=== PATIENT | male | born 1945 | race Caucasian/White ===

== ENCOUNTER 2019-07-30 12:08 | Inpatient (IN) | payer OTHER, MEDICARE, SELFPAY ==
[2019-07-30] VITALS (30 sets, daily range): BP systolic 90–136; BP diastolic 48–91; PULSE 65–84; RESP 16–29; TEMP 36.6–36.7; O2SAT 95–100; BMI 29.9
--- NOTE | 2019-07-30 | SCC_ITS ---
Procedure Done: Hemodialysis catheter placement right internal jugular vein under ultrasound guidance and fluoroscopy All interpretation intraoperatively was done by me for the whole entire procedure 9.1 seconds of fluoroscopic guidance, for a cumulative dose of 1.74 mGy, was provided to Dr. Byrne by the radiology department. C-arm images of the chest were saved for the patient's permanent record. YULI
--- NOTE | 2019-07-30 12:14 | XR_ITS ---
WS: [id number] Right femur and thigh, AP and lateral views, 07/30/2019 Clinical Data: pain Comparison: None. Findings: No fractures or dislocations are seen. The soft tissues are normal. The visualized knee shows no abno rmalities. XR/XR femur RT min 2V* [id number] Impression: Negative right femur and thigh.
--- NOTE | 2019-07-30 12:14 | CT_ITS ---
WS: [id number] CT HEAD TECHNIQUE: Noncontrast CT of the head obtained from the skullbase to the vertex. CLINICAL INFORMATION: fall- abrasion on forehead COMPARISON: CT 1 ,019 and MRI 1 16,019 DLP: 872.[address] scans at [facility] use at least one of these dose optimization techniques: automat ed exposure control; mA and/or kV adjustment per patient size (includes targeted exams where dose is matched to clinical indication); or iterative reconstruction. FINDINGS: No evidence of intracranial hemorrhage or mass effect. Ventricular system and basal cisterns are garcia nt. Mild small vessel changes with moderate parenchymal volume loss. No extra-axial fluid collections . No evidence of mass or mass effect. Normal kwon-white differentiation. Mucosal thickening mastoid tips. Notified Dara Grijalva DO at 07/30/2019 12:[address]/CT head wo con* [id number] IMPRESSION: 1. No evidence of intracranial hemorrhage or mass effect. 2. Mild small vessel changes. Moderate parenchymal volume loss. 3. No acute intracranial findings.
--- NOTE | 2019-07-30 12:14 | XR_ITS ---
WS: [id number] Left knee, 2 views, 07/30/2019 Clinical Data: pain Comparison: None. Findings: No fractures or dislocations are seen. The joint spaces are normal. The patella is intact. The soft t issues are unremarkable. Calcification in the [place] of the superficial femoral artery, popliteal artery and arteries and trifu rcation is seen. XR/XR knee LT 1-2V [id number] Impression: Negative left knee.
--- NOTE | 2019-07-30 12:14 | ECG_ITS ---
Measurements Intervals [place] Rate: 65 P: -3 OK: 277 QRS: -25 QRSD: 127 T: 139 QT: 426 QTc: 444 SINUS RHYTHM WITH FIRST DEGREE AV BLOCK BORDERLINE LEFT AXIS DEVIATION [QRS AXIS < -20] POSSIBLE RIGHT VENTRICULAR CONDUCTION DELAY [RSR (QR) IN V1/V2] ST DEVIATION AND MARKED T-WAVE ABNORMALITY, CONSIDER ANTEROLATERAL ISCHEMIA [-0.5+ mV T WAVE IN I/aVL/V3-V6] Compared to ECG 11/30/2018 10:36:46 First degree AV block now present T-wave abnormality still present Possible ischemia still present Electronically Signed On 07-31-2019 11:25:44 ENDLESS BELT FINISHER by Gibran Garzon M.D. [email or web address]
--- NOTE | 2019-07-30 12:14 | XR_ITS ---
WS: [id number] Right knee, 2 views, 07/30/2019 Clinical Data: pain Comparison: None. Findings: No fractures or dislocations are seen. The joint spaces are normal. The patella is intact. The soft t issues are unremarkable. There is minimal calcification in the [place] of the superficial femoral artery, popliteal artery and a rteries of the trifurcation. XR/XR knee RT 1-2V [id number] Impression: Negative right knee.
--- NOTE | 2019-07-30 12:14 | XR_ITS ---
WS: [id number] Left femur and thigh, AP and lateral, 07/30/2019 Clinical Data: pain Comparison: None. Findings: No fractures or dislocations are seen. The soft tissues are normal. The visualized knee shows no abno rmalities. Calcification in the [place] of the superficial femoral artery, popliteal artery and arteries of the tr ifurcation is seen. XR/XR femur LT min 2V* [id number] Impression: Negative left femur and thigh.
--- NOTE | 2019-07-30 12:14 | XR_ITS ---
WS: [id number] Pelvis, AP view, 07/30/2019 Clinical Data: pain Comparison: None. Findings: No fractures or dislocations are seen. The SI joints and pubic symphysis are intact. The soft tissues are not remarkable. The bladder is partly full. Moderate osteoarthritis of the L4 and L5 vertebral bodies is seen. XR/XR pelvis 1-2V* [id number] Impression: Negative for fracture.
--- NOTE | 2019-07-30 12:16 | ED_ITS ---
HPI - Fall General: Chief Complaint: Fall Stated Complaint: FALL Time Seen by Provider: 07/30/19 12:11 History of Present Illness: HPI Narrative: very pleasant patient recently x 1 year, history of Parkinson's disease, presents to [facility] ER for increasing frequency of falls. reportedle fell twice yesterday and again today.Initially called 911 for lift assist but could not stand or ambulate due to pain in bilateral legs. He does have an abrasion to his forehead, is alert and oriented. Reports he has home health but understands that he cannot go home if he cannot walk. EMS states house essentially clean aside from cat urine odor. No pain with direct palaption of BLE or pelvis. MD complaint: fall Onset (ago): day(s) Fall from: standing Fall witnessed: no Place fall occurred: home Loss of consciousness: None Prolonged down time: unclear Context: tripped/slipped and history of frequent falls Location of injury: head Location of injury - extremities: Bilateral: thigh Severity: moderate Severity scale (1-10): 5 Quality: aching Associated symptoms-after fall: Reports no associated symptoms; Denies abdominal pain, chest pain, difficulty walking, headache(s) or neck pain Review of Systems Const: Denies: fever, chills, change in appetite or malaise Eyes: Denies: change in vision, blurry vision, eye discharge or eye redness ENMT: Denies: throat pain, uvular edema, painful swallowing, mouth pain, dental pain, nasal congestion or facial/sinus pain Card: Denies: chest pain, irregular heart rhythm, swelling of feet/ankles, shortness of breath on exertion, shortness of breath when lying down or leg pain with exertion Resp: Denies: shortness of breath, productive cough, wheezing or coughing up blood GI: Denies: abdominal pain, nausea, vomiting, diarrhea, constipation or fecal incontinence : Denies: flank pain, painful urination, urinary frequency, urinary urgency or urinary hesitancy Musc: Reports: extremity pain; Denies: neck pain, back pain, extremity swelling, joint warmth, muscle cramps or loss of height Skin/Breast: Denies: rash, itching, redness, yellow skin or dry skin Neuro: Denies: headache, numbness in extremities, weakness in extremities, changes in sensation, lack of coordination or difficulty walking Psych: Denies: anxiety, depression, mood swings, panic attacks, sleeping less, suicidal ideation or homicidal ideation Endo: Denies: excessive urination, excessive thirst or tired all the time Raz/Lymph: Denies: easy bruising, petechiae or enlarged lymph nodes All/Imm: Denies: hives, throat swelling, facial swelling, acute wheezing or seasonal allergies PFSH ED PFSH: Statuses (acute, chronic, etc) shown below reflect problem list status as previously entered and may not be historically accurate Family History Other Cancer Diabetes Social History Smoking and tobacco status: former smoker Alcohol intake: never Marital status: / History of recent travel: No Physical Exam Const: COMMON NORMALS: no apparent distress, oriented x3, no limitations, healthy appearing, alert and well nourished GENERAL APPEARANCE: cooperative, comfortable, well kempt and well developed ORIENTATION/CONSCIOUSNESS: Yes awake, Yes oriented to person, Yes oriented to place and Yes oriented to time HENMT: COMMON NORMALS: normocephalic, hearing grossly normal bilaterally, external ears normal, EAC's normal, TM's normal bilaterally, external nose normal, nasal mucous membranes and turbinates normal, moist oral mucous membranes, oropharynx normal, dentition normal and gingiva normal HEAD & SCALP: normal to inspection, normocephalic and abrasion (forehead) FACE & SINUS: normal facial exam NOSE: external nose normal and nasal mucous membranes and turbinates normal EXTERNAL EAR: Yes external ears normal EXTERNAL AUDITORY CANAL: EAC's normal TYMPANIC MEMBRANE: TM's normal bilaterally MOUTH: oral and palatal mucosa normal, lip normal and tongue normal THROAT: no uvular edema Eye: COMMON NORMALS: PERRL, EOMs intact bilaterally, conjunctivae normal, no scleral icterus and normal visual linton by confrontation GENERAL EYE: normal appearance of both eyes and normal light reflex VISUAL ACUITY: Yes acuity normal ALIGNMENT: Yes alignment normal PERIORBITAL: periorbital findings normal EYELID: eyelids normal CONJUNCTIVA: Yes conjunctivae normal SCLERA: sclerae normal PUPIL: Yes PERRL and Yes accommodation reflex normal DIRECT OPHTHALMOSCOPY: Yes normal light reflex Neck/C-Spine: COMMON NORMALS: full ROM, no lymphadenopathy, supple, no meningeal signs and no JVD GENERAL: Yes normal visual inspection CAROTIDS: Yes normal carotid upstroke CERVICAL SPINE: Yes cervical ROM normal Lymph: LYMPHATIC: no lymphadenopathy noted Chest: COMMONS NORMALS: inspection of chest normal CHEST: Yes symmetrical chest wall rise Resp: COMMON NORMALS: normal respiratory effort, no retractions, no use of accessory muscles and clear to auscultation bilaterally EFFORT & INSPECTION: Yes able to speak in complete sentences and Yes symmetric chest movement AUSCULTATION: clear to auscultation bilaterally Cardio: COMMON NORMALS: no JVD, regular rate, regular rhythm, S1 normal heart sound, S2 normal heart sound, no murmurs and peripheral pulses 2+ throughout RATE: regular rate RHYTHM: regular rhythm HEART SOUNDS: S1 normal and S2 normal PERIPHERAL PULSES: pulses 2+ throughout GI: COMMON NORMALS: normal to inspection, nondistended, normoactive bowel sounds and non-tender : COMMON NORMALS: Yes no CVA tenderness BLADDER/KIDNEY EXAM: Yes no CVA tenderness Back/Pelvis: COMMON NORMALS: no CVA tenderness, thoracic and lumbar spine normal to inspection, no thoracic nor lumbar tenderness and thoraco-lumbar ROM normal Extremity: COMMON NORMALS: normal to inspection, full ROM, normal capillary refill, no joint enlargement, no clubbing, cyanosis or edema, no calf tenderness and no pedal edema Neuro: COMMON NORMALS: oriented x3, CN's II-XII intact bilaterally, moves all extremities, no focal motor deficits, no sensory deficits noted and gait normal SENSORIUM/ORIENTATION: Yes alert, Yes oriented to person, Yes oriented to place and Yes oriented to time MENINGEAL SIGNS: Yes no meningeal signs SPEECH: speech normal GAIT: Yes normal gait MOTOR EXAM: strength 5/5 throughout, no pronator drift and no tremor noted Psych: COMMON NORMALS: mental status grossly normal, thought process normal, cooperative, affect normal, speech normal and activity/motor behavior normal APPEARANCE: Yes well kempt SPEECH: Yes normal speech THOUGHT PROCESS: normal thought process THOUGHT CONTENT: Yes normal thought content INSIGHT: insight good Skin: COMMON NORMALS: no rashes or lesions noted, no wounds, skin turgor normal and no jaundice GENERAL SKIN EXAM: no rashes or lesions noted and turgor normal TRAUMA: abrasion (to forehead) Course Consultations: Consultation #1: Nephrology Vital Signs: Vital signs: Vital Signs Temperature 98.0 F 07/30/19 12:10 Pulse Rate 66 07/30/19 14:22 Respiratory Rate 16 07/30/19 14:10 Blood Pressure 127/62 07/30/19 12:10 Pulse Oximetry 98 07/30/19 14:10 MDM - Fall MDM Narrative: Medical decision making narrative: patient alert and oriented but states his legs hurt too much to walk, increasing frequency of falls with minor injury- abrasion to forehead, will evaluate for acute lower extremity or spinal injury. Will admit for hyperkalemia and ARF as well as social service consult as patient is declining in ability to stay home alone safely. Lab Data: Labs: Lab Results 07/30/19 07/30/19 07/30/19 Range/Units 12:20 12:20 12:20 WBC 15.0 H (4.0-10.0) 10^3/ uL RBC 3.47 L (4.1-5.3) 10^6/u L Hgb 9.1 L (11.7-16.6) g/dL Hct 30.2 L (42.0-52.0) % MCV 87.0 (80-94) fL MCH 26.2 L (28.0-34.0) pg MCHC 30.1 (30.0-36.0) g/dL RDW 14.8 (12.1-15.1) % Plt Count 338 (130-400) 10^3/c mm MPV 9.5 (7.4-10.4) fL Neut % (Auto) 80.9 % Lymph % (Auto) 10.5 % [place] % (Auto) 7.6 % Eos % (Auto) 0.2 % Baso % (Auto) 0.3 % Neut # (Auto) 12.1 H (1.8-7.7) 10^3/u L Lymph # (Auto) 1.6 (0.8-4.8) 10^3/u L [place] # (Auto) 1.1 H (0.2-0.9) 10^3/u L Eos # (Auto) 0.0 (0.0-0.8) 10^3/u L Baso # (Auto) 0.1 (0.0-0.1) 10^3/u L Nucleated RBC % (a uto) 0 % Nucleated RBCs # 0.0 /100WBC PT 15.30 H (10.5-13.3) SECO NDS INR 1.18 (0.8-1.2) Sodium Cancelled Potassium Cancelled Chloride Cancelled Carbon Dioxide Cancelled Anion Gap Cancelled BUN Cancelled Creatinine Cancelled GFR Calculation Cancelled Glucose Cancelled Calcium Cancelled Total Bilirubin Cancelled AST Cancelled ALT Cancelled Alkaline Phosphata se Cancelled Creatine Kinase (39-308) U/L Total Protein Cancelled Albumin Cancelled Globulin Cancelled 07/30/19 07/30/19 Range/Units 13:19 13:19 WBC (4.0-10.0) 10^3/ uL RBC (4.1-5.3) 10^6/u L Hgb (11.7-16.6) g/dL Hct (42.0-52.0) % MCV (80-94) fL MCH (28.0-34.0) pg MCHC (30.0-36.0) g/dL RDW (12.1-15.1) % Plt Count (130-400) 10^3/c mm MPV (7.4-10.4) fL Neut % (Auto) % Lymph % (Auto) % [place] % (Auto) % Eos % (Auto) % Baso % (Auto) % Neut # (Auto) (1.8-7.7) 10^3/u L Lymph # (Auto) (0.8-4.8) 10^3/u L [place] # (Auto) (0.2-0.9) 10^3/u L Eos # (Auto) (0.0-0.8) 10^3/u L Baso # (Auto) (0.0-0.1) 10^3/u L Nucleated RBC % (a uto) % Nucleated RBCs # /100WBC PT (10.5-13.3) SECO NDS INR (0.8-1.2) Sodium 134 L Potassium 9.4 H* Chloride 113 H Carbon Dioxide 11 L Anion Gap 19.4 H BUN 72 H Creatinine 3.8 H GFR Calculation Glucose 139 H Calcium 10.2 Total Bilirubin 0.2 AST 16 ALT 32 Alkaline Phosphata se 160 H Creatine Kinase 152 (39-308) U/L Total Protein 8.5 Albumin 4.3 Globulin 4.2 Discharge Plan Discharge Patient Disposition: Admitted As Inpatient Clinical Impression: Acute hyperkalemia, Leg weakness, bilateral, Falls frequently Acute renal failure Qualifiers: Acute renal failure type: unspecified Qualified Code(s): N17.9 - Acute kidney failure, unspecified Condition: Stable Referrals: Grover Brooks [Primary Care Provider] - Coding Level of Care Code ED Fund Accounting Manager for Chg Fwd Exam Problem Focused
--- NOTE | 2019-07-30 12:24 | CT_ITS ---
WS: [id number] CT LUMBAR SPINE TECHNIQUE: Noncontrast CT of the lumbar spine with coronal and sagittal reformatted images. CLINICAL INFORMATION: pain ble post fall COMPARISON: None. DLP: 2180.[address] scans at [facility] use at least one of these dose optimization techniques: automat ed exposure control; mA and/or kV adjustment per patient size (includes targeted exams where dose is matched to clinical indication); or iterative reconstruction. FINDINGS: Normal lumbar alignment. No acute compression. Disc space heights and vertebral body heights are rela tively well-maintained. Disc bulging worse at L1-L2, L4-L5 and L5-S1. L1-L2: Mild annular bulging. Narrowing of the subarticular recess. Moderate central canal stenosis. M ild left foraminal narrowing. L2-L3: Mild annular bulging. Mild facet arthropathy. Spinal canal and foramen are patent. L3-L4: Mild annular bulging in combination with facet arthropathy and ligamentum flavum hypertrophy r esults in moderate central canal stenosis. Narrowing of the left subarticular recess. Mild left vanessa inal narrowing. L4-L5: Mild disc bulging with a small central protrusion. Moderate central canal stenosis. Mild to mo derate left foraminal narrowing. Moderate facet arthropathy. L5-S1: Right pericentral disc osteophyte protrusion impinges the traversing right S1 nerve root. Mild central canal stenosis. Moderate bilateral foraminal narrowing right greater than left. Moderate fac et arthropathy. Normal caliber abdominal aorta. Visualized pelvic bony structures: Normal. Paravertebral soft tissues: Normal. Notified Dara Grijalva DO at 07/30/2019 12:[address]/CT lumbar spine wo con* [id number] IMPRESSION: 1. Normal lumbar alignment. No acute fractures. 2. Mild disc bulging with shallow disc protrusions results in multilevel spina l canal narrowing moderate at L1-2, L3-4, and L4-5 described above. 3. Right pericentral disc osteophyte protrusion L5-S1 impinges the traversing right S1 nerve root in the subarticular recess. 4. Multilevel mild to moderate foraminal narrowing worse at L4-5 and bilateral L5-S1.
[2019-07-30 12:29] LABS: Basophils # 0.1 10^3/uL (0.0-0.1); Basophils % 0.3 %; Eosinophils % 0.2 %; Hematocrit 30.2 % (42.0-52.0); Hemoglobin 9.1 g/dL (11.7-16.6); Lymphocytes # 1.6 10^3/uL (0.8-4.8); Lymphocytes % 10.5 %; Mean Corpuscular HGB Conc 30.1 g/dL (30.0-36.0); Mean Corpuscular Hemoglobin 26.2 pg (28.0-34.0); Mean Platelet Volume 9.5 fL (7.4-10.4); Monocytes # 1.1 10^3/uL (0.2-0.9); Monocytes % 7.6 %; Neutrophils # 12.1 10^3/uL (1.8-7.7); Neutrophils % 80.9 %; Nucleated Red Blood Cells % 0 %; Platelet Count 338 10^3/cmm (130-400); Red Blood Count 3.47 10^6/uL (4.1-5.3); Red Cell Distribution Width 14.8 % (12.1-15.1)
[2019-07-30 12:39] LABS: INR 1.18 (0.8-1.2)
[2019-07-30] MEDS: sodium chloride 0.9% 1,000 ML 250 ML IV (13:22)
[2019-07-30 13:39] LABS: Alanine Aminotransferase 32 U/L (0-41); Albumin Level 4.3 g/dL (3.5-5.2); Alkaline Phosphatase 160 IU/L (40-130); Anion Gap 19.4 (5-19); Aspartate Amino Transferase 16 U/L (0-40); Blood Urea Nitrogen 72 mg/dL (8-23); Calcium 10.2 mg/Dl (8.8-10.2); Carbon Dioxide 11 mmol/L (22-29); Chloride 113 mmol/L (98-107); Globulin 4.2 g/dL (1.3-4.6); Glucose 139 mg/dL (74-106); Sodium 134 mmol/L (136-145); Total Bilirubin 0.2 mg/dL (0.15-1.2); Total Protein 8.5 g/dL (6.6-8.7)
[2019-07-30 13:42] LABS: Potassium 9.4 mmol/L (3.5-5.1)
[2019-07-30 14:08] LABS: Creatine Phosphokinase 152 U/L (39-308)
[2019-07-30] MEDS: sodium polystyrene sulfonate 15 gm/60 mL Btl PO (14:17)
[2019-07-30] MEDS: sodium bicarbonate 8.4% 1 mEq/mL 50mL Syr 50 MEQ IVP (14:40)
[2019-07-30 15:27] LABS: Add Urine Microscopic? YES; Bilirubin Urine Neg (NEGATIVE); Blood Urine Neg (Negative); Glucose Urine UA 1+ (Normal); Ketones Urine Negative (Negative); Leukocyte Esterase Urine Negative (Negative); Nitrate Urine Negative (Negative); Protein Urine 2+ (Negative); Urine Appearance SL Hazy (CLEAR); Urine Color Straw (Yellow); Urobilinogen Urine Norm (Negative); pH Urine 5 (5-7)
[2019-07-30 15:32] LABS: Amorphous Sediment Urine TRACE; Bacteria Urine 1+; Hyaline Casts Urine 0-4; Mucus Urine TRACE; RBC Urine RARE /hpf (0-2); Squamous Epithelial Cell Urine 0-4 (0-5)
[2019-07-30 15:33] LABS: Add Urine Culture? No
--- NOTE | 2019-07-30 15:46 | PM.HP ---
Providers/Chief Complaint Admitting Physician: Tamara Candelaria MD Primary Care Provider: Grover Brooks Chief Complaint: hyperkalemia,JED History of Present Illness Gagan Gandhi is a 73 year old male with a past medical history of A. fib, not on anticoagulation due to GI bleeding, dementia, diabetes mellitus, dyslipidemia, GI bleeding, hypertension, ventricular tachycardia history last noted in 2019 for which she was advised to undergo an angiogram but elected not to proceed with any further testing. He presents to the ER today with chief complaint of sudden onset lower extremity weakness in bilateral lower extremities. He reports being in his usual state of health until last evening when he got up out of bed to walk with his walker and then could not walk. He states that he remained on the floor until he dragged himself to the couch, called his [id number] who in turn called the ambulance and brought him to the ER. He states he has never had similar symptoms in the past. He does have a history of dementia and lives by himself, therefore history is limited. He is unable to provide clear details but denies having had any fever, chest pain, dyspnea, palpitations, syncope. He has a visiting nurse who comes by once a week and helps out with his medications. He believes he is taking all his medications correctly. On arrival to the ED he was noted to have an elevated white blood cell count of 15,000, JED with cr 3.8 (BL ~1.2), K of 9.4, repeated at 9 and HAGMA. He is going to undergo urgent HD in the ICU after moving to OR for catheter placement. EKG shows 1st degree AV block with bradycardia and deep T wave inversions. Thus far he has received ca gluconate x 1, insulin/dextrose, nebulization and kayexalate following which he is having multiple BMs. Review of medications shows he is on Lisinopril, metformin, glipizide which may be potentially contributing to metabolic abnormalities. Review of Systems General: Reports: 10 or more systems reviewed and unremarkable except in HPI and below Const: Denies: fever, chills or body aches Eyes: Denies: change in vision or blurry vision Card: Denies: chest pain, palpitations, irregular heart rhythm, edema, swelling of feet/ankles, lightheadedness or syncope Resp: Denies: shortness of breath, productive cough, non-productive cough or wheezing GI: Reports: abdominal pain (tender to palpation RUQ); Denies: nausea, vomiting, vomiting blood, coffee grounds in vomit, heartburn/indigestion or diarrhea : Denies: flank pain, difficulty urinating, painful urination, urinary frequency, urinary urgency or urinary hesitancy Neuro: Reports: weakness in extremities, lack of coordination, difficulty walking and frequent falls; Denies: headache Psych: Reports: anxiety Raz/Lymph: Denies: easy bruising, easy bleeding or petechiae Medications/Allergies Allergies Allergy/AdvReac Type Severity Reaction Status Date / Time No Known Allergies Allergy Unverified 07/25/19 13:47 PFSH Acute PFSH: Statuses (acute, chronic, etc) shown below reflect problem list status as previously entered and may not be historically accurate Medical History Atrial fibrillation (Acute) Dementia (Acute) Diabetes mellitus (Acute) Dyslipidemia (Acute) GI bleeding (Acute) Hypertension (Acute) Ventricular tachycardia (Acute) Family History Mother Sudden cardiac Other Cancer Diabetes Social History Smoking and tobacco status: former smoker Alcohol intake: never Marital status: / History of recent travel: No Vitals/I&O/Wt Last Vital Signs Temp 98.0 F 07/30/19 12:10 Pulse 66 07/30/19 14:22 Resp 16 07/30/19 14:10 BP 127/62 07/30/19 12:10 Pulse Ox 98 07/30/19 14:10 Weight last 48 hrs Weight 81.647 kg Physical Exam Const: COMMON NORMALS: no apparent distress, oriented x3 and alert Resp: EFFORT & INSPECTION: Yes able to speak in complete sentences and Yes symmetric chest movement Cardio: COMMON NORMALS: regular rate, regular rhythm, S1 normal heart sound, S2 normal heart sound, no gallops, no clicks, no murmurs and peripheral pulses 2+ throughout JUGULAR VENOUS DISTENTION: no JVD GI: COMMON NORMALS: normal to inspection, nondistended, normoactive bowel sounds PALPATION: Yes tender Details: RUQ Neuro: COMMON NORMALS: oriented x3, CN's II-XII intact bilaterally and deep tendon reflexes 2+ bilaterally OTHER: Able tO lift both lower extremities off the bed, states expeirencing B/L thigh pain. Sepsis: Is patient septic: No Focused sepsis exam performed: Yes Data : 07/30/19 12:20 07/30/19 14:45 A&P Assessment and plan (1) Acute hyperkalemia: Repeat K x 2 at >9, nephrology consulted, planned for urgent HD line placement in OR with Dr. Chavira Unclear cause off metabolic abnormlities at this time Hold possibly offending medications incl Lisinopril, metformin and glipizide cannot r/o sepsis - check blood cx, USG RUQ given tenderness to palptation, lactate, CXR, UA Empiric Ceftriaxone and flagyl for now Cehck CPK to r/o rhabdomyolysis Renal CT to r/o obstructive uropathy. Patieent currently has urine output- 500ml thus far in the ED. Whitley placement for accurate I/O assessment thus far received ca gluconate x 1, kayexalte, insulin/dextrose, bicarb in the ED Status: Acute Code(s): E87.5 - Hyperkalemia (2) Acute renal failure: as above under hyperkalemia + check echo to estimate EF , r/o cardiorenal syndrome will reveiw prior records in detail- there appears to have been some suspicion for cardiac amyloidosis in the past Status: Acute Qualifiers: Acute renal failure type: unspecified Qualified Code(s): N17.9 - Acute kidney failure, unspecified Code(s): N17.9 - Acute kidney failure, unspecified (3) Dementia: director of women's services consult to assess safety of living situation Status: Acute Code(s): F03.90 - Unspecified dementia without behavioral disturbance (4) Diabetes mellitus: Insulin sliding scale for now check hba1c Status: Acute Code(s): E11.9 - Type 2 diabetes mellitus without complications (5) Atrial fibrillation: currently with bradycardia with 1st degree AV block with deep T wave changes ca gluconate given x 1. Will order second round now given persistent EKG changes. not on a/c for h/o GI bleed Status: Acute Code(s): I48.91 - Unspecified atrial fibrillation (6) Hypertension: hold lisinopril will use amldipine + hydralazine prn avoid b blockers given bradycardia and 1st degree AV block Status: Acute Code(s): I10 - Essential (primary) hypertension (7) Leukocytosis: sepsis w/up as above Status: Acute Code(s): D72.829 - Elevated white blood cell count, unspecified Attestations Medical Necessity Statement*: > 2 midnight ICU admission for management of ARF, hyperkalemia , need for HD Coding Level of Care Code Acute Airline Pilot/First Officer for [facility] Fwd Diagnoses Acute hyperkalemia E87.5 Acute renal failure N17.9 Acute renal failure type: unspecified Dementia F03.90 Diabetes mellitus E11.9 Atrial fibrillation I48.91 Hypertension I10 Leukocytosis D72.829
--- NOTE | 2019-07-30 16:29 | P.CONIM_ITS ---
Providers/Reason For Consult Consulting Physican/Specialty*: Taj Byrne MD Reason for Consult*: Hyperkalemia that requires urgent hemodialysis Attending Physician: Tamara Candelaria MD Primary Care Provider: Grover Brooks History of Present Illness History of Present Illness Chief complaint ; I am tired HPI ; Mr. Gagan Gandhi is a 73 year old male, pleasant patient that was found not able to get out of his chair today at his house and he was brought to the hospital because of generalized fatigue, and was further evaluated in the emergency department and found to have a potassium of 9, that would require urgent hemodialysis, to my understanding patient does not have a kidney disease before, he does give history of diabetes mellitus type 2 hypertension Parkinson disease. And back in 1999 had an abdominal hernia repair. Review of Systems Const: Reports: body aches, malaise and other (Generalized fatigue); Denies: fever or chills Card: Denies: chest pain Resp: Denies: shortness of breath GI: Denies: abdominal pain, nausea, vomiting, difficulty swallowing, diarrhea, constipation or blood in stool Neuro: Denies: headache Psych: Denies: anxiety or depression Meds/Allergies Home Medications and Allergies Home Medications Medication Instructions Recorded Confirmed Type aspirin 81 mg tablet,delayed 81 mg PO DAILY tab 07/25/19 07/25/19 History release atorvastatin 10 mg tablet 10 mg PO DAILY tab 07/25/19 07/25/19 History chlorpheniramine maleate 4 mg 4 mg PO Q6H 07/25/19 07/25/19 History tablet cholecalciferol (vitamin D3) 2,000 2,000 unit PO DAILY tab 07/25/19 07/25/19 History unit tablet colestipol 1 gram tablet 2 gm PO BID 07/25/19 07/25/19 History gabapentin 400 mg capsule 400 mg PO DAILY cap 07/25/19 07/25/19 History glipizide 10 mg tablet 10 mg PO BID 07/25/19 07/25/19 History isosorbide mononitrate 60 mg 60 mg PO QAM 07/25/19 07/25/19 History tablet,extended release 24 hr lisinopril 40 mg tablet 40 mg PO DAILY tab 07/25/19 07/25/19 History magnesium L-lactate 84 mg 84 mg PO BID 07/25/19 07/25/19 History tablet,extended release metformin 850 mg tablet 850 mg PO BID 07/25/19 07/25/19 History metoprolol tartrate 75 mg tablet 75 mg PO BID 07/25/19 07/25/19 History omega-3 fatty acids 1,000 mg 1,000 mg PO BID 07/25/19 07/25/19 History capsule Allergies Allergy/AdvReac Type Severity Reaction Status Date / Time No Known Allergies Allergy Unverified 07/25/19 13:47 PFSH Acute PFSH: Statuses (acute, chronic, etc) shown below reflect problem list status as previously entered and may not be historically accurate Medical History Atrial fibrillation (Acute) Dementia (Acute) Diabetes mellitus (Acute) Dyslipidemia (Acute) GI bleeding (Acute) Hypertension (Acute) Ventricular tachycardia (Acute) Family History Mother Sudden cardiac Other Cancer Diabetes Social History Smoking and tobacco status: former smoker Alcohol intake: never Marital status: / History of recent travel: No Vitals/I&O/Wt Last Vital Signs Temp 98.0 F 07/30/19 12:10 Pulse 66 07/30/19 14:22 Resp 16 07/30/19 14:10 BP 127/62 07/30/19 12:10 Pulse Ox 98 07/30/19 14:10 Weight last 48 hrs Weight 180 lb Physical Exam Const: COMMON NORMALS: no apparent distress and oriented x3 GENERAL APPEARANCE: cooperative ORIENTATION/CONSCIOUSNESS: Yes awake, Yes oriented to person, Yes oriented to place and Yes oriented to time HENMT: COMMON NORMALS: normocephalic HEAD & SCALP: normocephalic Eye: COMMON NORMALS: PERRL and no scleral icterus PUPIL: Yes PERRL Lymph: LYMPHATIC: no lymphadenopathy noted Chest: COMMONS NORMALS: inspection of chest normal Resp: COMMON NORMALS: normal respiratory effort and clear to auscultation bilaterally AUSCULTATION: clear to auscultation bilaterally Cardio: COMMON NORMALS: S1 normal heart sound and S2 normal heart sound; negative for no murmurs HEART SOUNDS: S1 normal and S2 normal GI: COMMON NORMALS: soft to palpation; negative for no hepatosplenomegaly INSPECTION: Yes normal to inspection PALPATION: Yes soft, No firm, No tender, No guarding, No rigid and No no hepatosplenomegaly Neuro: COMMON NORMALS: oriented x3 SENSORIUM/ORIENTATION: Yes oriented to person, Yes oriented to place and Yes oriented to time Psych: COMMON NORMALS: mental status grossly normal A&P Assessment and plan (1) Acute hyperkalemia: Plan of care; After history physical examination and reviewing the chart, I counseled the patient for a an urgent hemodialysis catheter placement, indications, risks including pneumothorax and injury of major vascular structures, benefits, and alternatives were all discussed with the patient, patient understands and is interested to proceed. Informed consent per chart Assurance and education All questions have been answered Thank you for consulting general surgery to participate taking care Status: Acute Code(s): E87.5 - Hyperkalemia Consult Attestations Medical Necessity Statement: Per hospitalist service Coding Level of Care Code Acute Sensitized Paper Tester for Chg Fwd Exam Problem Focused Diagnoses Acute hyperkalemia E87.5 Time Spent (min) 10
--- NOTE | 2019-07-30 16:30 | US_ITS ---
WS: [id number] ULTRASOUND ABDOMEN LIMITED CLINICAL INFORMATION: RUQ pain and tenderness COMPARISON: None. FINDINGS: Liver Size: Hepatomegaly Craniocaudal length: 20.6 cm. Echogenicity: Coarse Surface nodularity: None. Mass (size and location): None. Bile ducts Intrahepatic ducts: Normal. Common bile duct diameter: 2.6 mm. Gallbladder Normal. Gallstones: None. Gallbladder sludge: None. Gallbladder wall thickening: Mild wall thickening measuring 4.2 mm Pericholecystic fluid: None. Sonographic [place] sign: Absent. Pancreas Not well seen Right kidney: Normal. Hydronephrosis: None. Size: 9.8 cm x 5.7 cm x 5.1 cm. Abdominal aorta and IVC Visualized portions are normal. Ascites: None. US/US abdomen limited [id number] IMPRESSION: 1. Hepatomegaly with coarse echogenicity consistent with fatty infiltration. 2. Mild gallbladder wall thickening measuring 4.2 mm. No pericholecystic fluid . No cholelithiasis. 3. Normal common bile duct. 4. No hydronephrosis in right kidney.
[2019-07-30] MEDS: cefTRIAXone 1,000 MG in sodium chloride 0.9% (plus) 50 ML 100 MG IV (16:33)
--- NOTE | 2019-07-30 16:36 | XRR_ITS ---
PROCEDURE INFORMATION: Exam: XR Abdomen, 1 View Exam date and time: 07/30/2019 5:07 PM Age: 73 years old Clinical indication: Abdominal pain; Generalized; Additional info: Upright to R/O perfortaion TECHNIQUE: Imaging protocol: XR of the abdomen. Views: Frontal supine view of the abdomen. 1 View. COMPARISON: CR XR KUB [id number] 02/12/2019 3:47 AM FINDINGS: Gastrointestinal tract: Small amount of scattered gas in the small and large bowel. Intraperitoneal space: No pneumoperitoneum. Organs: Splenic artery calcifications. Bones/joints: Unremarkable. XR/XR abdomen 1V* 12100 IMPRESSION: 1. Nonspecific nonobstructive bowel gas pattern.
--- NOTE | 2019-07-30 16:53 | SC_ITS ---
WS: [id number] INTRAOPERATIVE TECHNIQUE: 4 Spot fluoroscopic images for intraoperative purposes. FLUOROSCOPY TIME: 9.1 seconds CLINICAL INFORMATION: Hemodialysis catheter placement COMPARISON: None. FINDINGS: Right IJ catheter with tip in the SVC. No visualized pneumothorax SC/C-arm FL for CVA [id number] IMPRESSION: Images obtained for intraoperative purposes.
--- NOTE | 2019-07-30 17:27 | ANES.PREANES ---
Pre-Anesthetic Assessment Pre-Anesthetic Assessment: Height/Weight: Height 1.65 m Weight 81.647 kg Temp Pulse Resp BP Pulse Ox 97.9 F 67 18 90/62 95 07/30/19 17:11 07/30/19 17:11 07/30/19 17:11 07/30/19 17:11 07/30/19 17:11 Preop Diagnosis: Acute hyperkalemia Proposed Procedure: Operation Date: 07/30/19 17:30 Proposed Procedures p Dialysis Catheter Insertion(Not Applicable) - Taj Byrne MD Was Beta Paul taken within 24 hours: Yes (metoprolol last pm) Last intake: 1430 Pt had PO kayexalate in ED Last Intake: 14:30 Social: Social History: Tobacco and No alcohol Comment: stop 50 yrs ago Exam: Pre-Anes Outpt Exam: alert, oriented x 3 (person and place yet not time), clear to auscultation bilaterally and regular rate & rhythm Airway: Submandibular: WNL Cervical ROM: WNL MP: 2 Dentition: False Pulmonary: Pulmonary: None reported CV/HEM: CV/HEM: Afib, CAD and HTN : : Chronic renal failure Comments: Acute Hepatic: Hepatic: None reported GI: GI: None reported Metabolic: Metabolic: DM Musc/skel: Musc/skel: Lower Back Pain and Weakness Comments: pt uses walker to ambulate Neuropsych: Neuropsych: Dementia Anesthetic Plan: ASA status: IV Anesthesia: Anesthesia Evaluation, MAC and Local Only Risk of > 500 ml blood loss (7ml/kg in children): No Other Pertinent Information: Minimal sedation with versed and fentanyl due to pt not NPO Meds/Allergies Current Medications: Current Medications Generic Name Dose Route Start Last Admin Trade Name Freq PRN Reason Stop Dose Admin Ceftriaxone Sodium 1,000 mg/ 50 mls @ 100 mls/ hr 07/30/19 17:00 07/30/19 16:55 Sodium Chloride IV Infused Q24H DEBBIE Infusion Protocol PFS Anesthesia PFSH: Medical History Atrial fibrillation (Acute) Dementia (Acute) Diabetes mellitus (Acute) Dyslipidemia (Acute) GI bleeding (Acute) Hypertension (Acute) Ventricular tachycardia (Acute) Family History Mother Sudden cardiac Other Cancer Diabetes Social History Smoking and tobacco status: former smoker Alcohol intake: never Marital status: / History of recent travel: No Data Anesthesia CBC & Chem 7: 07/30/19 12:20 07/30/19 14:45 Other Labs: Laboratory Results - last 48 hr 07/30/19 07/30/19 07/30/19 12:20 12:20 12:20 WBC 15.0 H RBC 3.47 L Hgb 9.1 L Hct 30.2 L MCV 87.0 MCH 26.2 L MCHC 30.1 RDW 14.8 Plt Count 338 MPV 9.5 Neut % (Auto) 80.9 Lymph % (Auto) 10.5 [place] % (Auto) 7.6 Eos % (Auto) 0.2 Baso % (Auto) 0.3 Neut # (Auto) 12.1 H Lymph # (Auto) 1.6 [place] # (Auto) 1.1 H Eos # (Auto) 0.0 Baso # (Auto) 0.1 Nucleated RBC % (auto) 0 Nucleated RBCs # 0.0 PT 15.30 H INR 1.18 Sodium Cancelled Potassium Cancelled Chloride Cancelled Carbon Dioxide Cancelled Anion Gap Cancelled BUN Cancelled Creatinine Cancelled GFR Calculation Cancelled Glucose Cancelled Calcium Cancelled Total Bilirubin Cancelled AST Cancelled ALT Cancelled Alkaline Phosphatase Cancelled Creatine Kinase Total Protein Cancelled Albumin Cancelled Globulin Cancelled Urine Color Urine Appearance Urine pH Ur Specific [place] Urine Protein Urine Glucose (UA) Urine Ketones Urine Occult Blood Urine Nitrate Urine Bilirubin Urine Urobilinogen Ur Leukocyte Esterase Urine RBC Urine WBC Ur Squamous Epith Cells Amorphous Sediment Urine Bacteria Hyaline Casts Urine Mucus 07/30/19 07/30/19 07/30/19 12:28 13:19 13:19 WBC RBC Hgb Hct MCV MCH MCHC RDW Plt Count MPV Neut % (Auto) Lymph % (Auto) [place] % (Auto) Eos % (Auto) Baso % (Auto) Neut # (Auto) Lymph # (Auto) [place] # (Auto) Eos # (Auto) Baso # (Auto) Nucleated RBC % (auto) Nucleated RBCs # PT INR Sodium 134 L Potassium 9.4 H* Chloride 113 H Carbon Dioxide 11 L Anion Gap 19.4 H BUN 72 H Creatinine 3.8 H GFR Calculation Glucose 139 H Calcium 10.2 Total Bilirubin 0.2 AST 16 ALT 32 Alkaline Phosphatase 160 H Creatine Kinase 152 Total Protein 8.5 Albumin 4.3 Globulin 4.2 Urine Color Straw Urine Appearance Sl hazy Urine pH 5 Ur Specific [place] 1.010 Urine Protein 2+ H Urine Glucose (UA) 1+ Urine Ketones Negative Urine Occult Blood Neg Urine Nitrate Negative Urine Bilirubin Neg Urine Urobilinogen Norm Ur Leukocyte Esterase Negative Urine RBC Rare Urine WBC 5-10 H Ur Squamous Epith Cells 0-4 H Amorphous Sediment Trace Urine Bacteria 1+ H Hyaline Casts 0-4 H Urine Mucus Trace 07/30/19 14:45 WBC RBC Hgb Hct MCV MCH MCHC RDW Plt Count MPV Neut % (Auto) Lymph % (Auto) [place] % (Auto) Eos % (Auto) Baso % (Auto) Neut # (Auto) Lymph # (Auto) [place] # (Auto) Eos # (Auto) Baso # (Auto) Nucleated RBC % (auto) Nucleated RBCs # PT INR Sodium Potassium 9.0 H* Chloride Carbon Dioxide Anion Gap BUN Creatinine GFR Calculation Glucose Calcium Total Bilirubin AST ALT Alkaline Phosphatase Creatine Kinase Total Protein Albumin Globulin Urine Color Urine Appearance Urine pH Ur Specific [place] Urine Protein Urine Glucose (UA) Urine Ketones Urine Occult Blood Urine Nitrate Urine Bilirubin Urine Urobilinogen Ur Leukocyte Esterase Urine RBC Urine WBC Ur Squamous Epith Cells Amorphous Sediment Urine Bacteria Hyaline Casts Urine Mucus Cardiac Studies: No Data to Display
[2019-07-30] MEDS: heparin, porcine 1,000 unit/mL INJ 10 mL 6000 UNIT HE (18:00)
[2019-07-30] MEDS: lidocaine 2% INJ 20 mL INJECTION (18:00)
--- NOTE | 2019-07-30 18:21 | PM.OP ---
Operative Report Date of procedure: 07/31/19 Pre-op Diagnosis: Acute hyperkalemia Post-op diagnosis: same Procedure Done: Hemodialysis catheter placement right internal jugular vein under ultrasound guidance and fluoroscopy All interpretation intraoperatively was done by me for the whole entire procedure Implants: -07/15 Haitian 16 cm hemodialysis catheter Pathology: none sent Surgeon: Taj Byrne Anesthesia: Local and Other (Versed /fentanyl director of casework department Smart) Estimated blood loss (mL): 5 Condition: stable Disposition: ICU Brief History: Mr. Gagan Gandhi is a 73 year old male, pleasant patient that was found not able to get out of his chair today at his house and he was brought to the hospital because of generalized fatigue, and was further evaluated in the emergency department and found to have a potassium of 9, that would require urgent hemodialysis, to my understanding patient does not have a kidney disease before, he does give history of diabetes mellitus type 2 hypertension Parkinson disease. And back in 1999 had an abdominal hernia repair. Plan of care; After thorough history physical examination and reviewing the chart, I counseled the patient for temporary hemodialysis catheter placement, indications, risks including pneumothorax and injury of major vascular structures, benefits, and alternatives were all discussed with the patient, patient understands and is interested to proceed. Informed consent per chart Assurance and education All questions have been answered Procedure: Patient was identified in the PACU and taken to the operative room and placed in supine position,both arms were tucked,Time-out was done verifying the patient's name/date of /planned procedure and destination after the procedure, all were in agreement.SCDs confirmed to be functioning, patient was given prophylactic antibiotics administered per protocol, and beta niraj protocol was confirmed, appropriate positioning of the patient was done by me. Medications were reviewed to assess for anticoagulant usage. Risks and benefits and prevention of central line associated blood stream infection (CLABSI) were discussed with the patient/CPOA, and a consent was obtained. Monitors were in place and monitored throughout the procedure. All necessary supplies were available prior to start. Hand hygiene was completed prior to starting. Maximum barrier technique was utilized including a sterile gown, sterile gloves with a hat and mask. Site was was prepped with [chlorhexidine] and a full body drape was placed. 5 mL of 2% lidocaine was injected into the skin with a 25 gauge needle. Prep& drape was done under the usual sterile technique of upper chest right and left as well as the neck both sides, lidocaine 2% was injected at the site of the stick, started by right internal jugular vein stick under ultrasound guidance that showed no intraluminal thrombosis and interpretation was done by me , venous bloodwas retrieved,a guidewire was then threaded and under the guidance of fluoroscopy position was confirmed to be in the IVC, there was no PVC changes, at that point the guidewire was secured to the drapes with a hemostat and the needle was taken out. A small alexis was created with 11 blade knife to allow delivery of the dilators and the catheter,at that point under fluoroscopy,serial dilators were done that come in the in the KIT, followed by that the 11.5 Haitian 16 cm long temporary dialysis catheter was introduced onto the guidewire the wire was retrieved and I Was able to flush both ports arterial and venous liberally the catheter was then secured in place with 3/0 nylon sutures to the skin. The whole procedure was done under fluoroscopy , the position maintained to be in the rt atrium that was confirmed with fluoroscopy, and the fluoroscopy interpretation was done by me throughout the entire procedure. Patient tolerated the procedure well was taken to the ICU to start dialysis Count was correct at the end of the procedure I was present for the whole entire procedure Position of the catheter was checked with a postoperative chest x-ray and it was in good position without evidence of pneumothorax
--- NOTE | 2019-07-30 18:38 | ECG_ITS ---
Measurements Intervals [place] Rate: 75 P: -9 AL: 193 QRS: -35 QRSD: 90 T: 126 QT: 380 QTc: 426 SINUS RHYTHM MARKED LEFT AXIS DEVIATION [QRS AXIS < -30] ST DEVIATION AND MODERATE T-WAVE ABNORMALITY, CONSIDER ANTEROLATERAL ISCHEMIA [-0.1+ mV T WAVE IN V3-V6] Compared to ECG 11/30/2018 10:36:46 No significant changes Electronically Signed On 07-31-2019 11:32:05 TILLER MAN by Gibran Garzon M.D. [email or web address]
--- NOTE | 2019-07-30 18:43 | PM.CONSULT ---
Providers/Reason For Consult Consulting Physican/Specialty*: Nephrology Reason for Consult*: JED and hyperK Attending Physician: Taj Byrne MD Primary Care Provider: Grover Brooks History of Present Illness History of Present Illness Gagan Gandhi is a 73 year old male He has felt weakness all day long, collapsing. Yesterday he apparently felt fine, now extremely weak but no other symptoms. Claims to pass urine frequently but no overt obstructive Sx. He is now taking more meds in his last few weeks than every before but he is unsure which meds, from 5 to now 10 meds. It appears he takes Lisinopril He denies taking any OTC meds No known history of kidney failure Baseline creatinine is unknown No overt uremic Sx except for the weakness Blood pressures since admission have been stable Abdo sono showed no right hydro, CT scan pending Review of Systems General: Reports: 10 or more systems reviewed and unremarkable except in HPI and below Card: Denies: chest pain or palpitations Resp: Denies: shortness of breath or productive cough GI: Denies: abdominal pain, nausea, diarrhea or painful bowel movements : Reports: urinary frequency; Denies: difficulty urinating or painful urination Meds/Allergies Home Medications and Allergies Home Medications Medication Instructions Recorded Confirmed Type aspirin 81 mg tablet,delayed 81 mg PO DAILY tab 07/25/19 07/25/19 History release atorvastatin 10 mg tablet 10 mg PO DAILY tab 07/25/19 07/25/19 History chlorpheniramine maleate 4 mg 4 mg PO Q6H 07/25/19 07/25/19 History tablet cholecalciferol (vitamin D3) 2,000 2,000 unit PO DAILY tab 07/25/19 07/25/19 History unit tablet colestipol 1 gram tablet 2 gm PO BID 07/25/19 07/25/19 History gabapentin 400 mg capsule 400 mg PO DAILY cap 07/25/19 07/25/19 History glipizide 10 mg tablet 10 mg PO BID 07/25/19 07/25/19 History isosorbide mononitrate 60 mg 60 mg PO QAM 07/25/19 07/25/19 History tablet,extended release 24 hr lisinopril 40 mg tablet 40 mg PO DAILY tab 07/25/19 07/25/19 History magnesium L-lactate 84 mg 84 mg PO BID 07/25/19 07/25/19 History tablet,extended release metformin 850 mg tablet 850 mg PO BID 07/25/19 07/25/19 History metoprolol tartrate 75 mg tablet 75 mg PO BID 07/25/19 07/25/19 History omega-3 fatty acids 1,000 mg 1,000 mg PO BID 07/25/19 07/25/19 History capsule Allergies Allergy/AdvReac Type Severity Reaction Status Date / Time No Known Allergies Allergy Unverified 07/25/19 13:47 Current Medications Current Medications Generic Name Dose Route Start Last Admin Trade Name Garrisonq PRN Reason Stop Dose Admin Ceftriaxone Sodium 1,000 mg/ 50 mls @ 100 mls/hr 07/30/19 17:00 07/30/19 16:55 Sodium Chloride IV Infused Q24H DEBBIE Infusion Protocol PFSH Acute PFSH: Statuses (acute, chronic, etc) shown below reflect problem list status as previously entered and may not be historically accurate Medical History Atrial fibrillation (Acute) Dementia (Acute) Diabetes mellitus (Acute) Dyslipidemia (Acute) GI bleeding (Acute) Hypertension (Acute) Ventricular tachycardia (Acute) Family History Mother Sudden cardiac Other Cancer Diabetes Social History Smoking and tobacco status: former smoker Alcohol intake: never Marital status: / History of recent travel: No Vitals/I&O/Wt Last Vital Signs Temp 97.9 F 07/30/19 17:11 Pulse 67 07/30/19 17:11 Resp 18 07/30/19 17:11 BP 90/62 07/30/19 17:11 Pulse Ox 95 07/30/19 17:11 07/30/19 07/30/19 07/30/19 06:59 14:59 22:59 Intake Total 60 / 60 1050 / 1110 Balance 60 / 60 1050 / 1110 Weight last 48 hrs Weight 81.647 kg Physical Exam Const: COMMON NORMALS: no apparent distress, average body habitus and oriented x3 HENMT: COMMON NORMALS: normocephalic and head/scalp atraumatic HEAD & SCALP: normocephalic and atraumatic Neck/C-Spine: COMMON NORMALS: no JVD Chest: COMMONS NORMALS: inspection of chest normal and palpation of chest normal Resp: COMMON NORMALS: normal respiratory effort and no retractions Cardio: COMMON NORMALS: no JVD and regular rate RATE: regular rate GI: COMMON NORMALS: normal to inspection, nondistended, normoactive bowel sounds Neuro: COMMON NORMALS: oriented x3 and moves all extremities Data Micro: Micro: Microbiology 07/30/19 13:10 Blood Culture - Pr eliminary Blood SPECIMEN [facility] 07/30/19 17:20 Blood Culture - Pr eliminary Blood SPECIMEN [facility] A&P Additional A&P Information 1. JED and hyperkalemia - critical hyperkalemia with 1st degree heart block - cause is not clear but use of ACEi likely to have contributed - his relative asymptomaticness suggests this has been evolving for some time - s/p line placement - stat dialysis this evening; 2K, 3hr treatment; no UF - stat potassium after dialysis to see how the potassium is responding - ivf on board - abdo imaging ordered - urinalysis and FENa ordered - dose meds for eGFR < 15 2. Weakness - likely to be due to hyperK - PT /OT 3. Hypertension - strict monitoring of hemodynamics - Bp meds on hold for now - would now classify ACEi as an intolerance - thanks, will follow closely Consult Attestations Medical Necessity Statement: eval and mgmt of critical hyperK Coding Level of Care Code Acute Cement Mason Apprentice for Maylin Morales
--- NOTE | 2019-07-30 18:47 | XRR_ITS ---
PROCEDURE INFORMATION: Exam: XR Chest, 1 View Exam date and time: 07/30/2019 6:49 PM Age: 73 years old Clinical indication: Device placement; Other: Dialysis catheter; Prior surgery; Surgery date: Post-operative (0-2 days); Additional info: Dialysis catheter placemnet please do stat TECHNIQUE: Imaging protocol: XR of the chest Views: 1 view. COMPARISON: CR Chest 1 view [id number] 11/25/2018 1:24 PM FINDINGS: Tubes, catheters and devices: Right IJ central line with tip over the proximal SVC. Pacemaker pads on the left chest. Lungs: Minimal atelectasis in the lung bases. Pleural space: Unremarkable. No pleural effusion. No pneumothorax. Heart/Mediastinum: Unremarkable. No cardiomegaly. Bones/joints: Unremarkable. XR/XR chest 1V [id number] IMPRESSION: Central line placement without pneumothorax.
[2019-07-30 19:41] LABS: Magnesium 2.3 mg/dL (1.7-2.3); Phosphorus 3.2 mg/dL (2.5-4.5)
[2019-07-30 19:42] LABS: Lactic Sepsis W/Reflex 0.9 mmol/L (0.5-2.2)
[2019-07-30 19:43] LABS: Troponin(5th) Baseline 49 ng/mL (0-15)
[2019-07-30 20:02] LABS: Estmated Average Glucose 140; Hemoglobin A1C 6.5 % (4.0-6.0)
--- NOTE | 2019-07-30 21:38 | ECG_ITS ---
Measurements Intervals [place] Rate: 66 P: -30 DE: 214 QRS: -31 QRSD: 94 T: 136 QT: 396 QTc: 417 SINUS RHYTHM WITH FIRST DEGREE AV BLOCK MARKED LEFT AXIS DEVIATION [QRS AXIS < -30] ST DEVIATION AND MARKED T-WAVE ABNORMALITY, CONSIDER ANTEROLATERAL ISCHEMIA [- [-0.5+ mV T WAVE IN I/aVL/V3-V6] Compared to ECG 11/30/2018 10:36:46 First degree AV block now present T-wave abnormality still present Possible ischemia still present Electronically Signed On 07-31-2019 11:30:45 PHARMACY TECHNOLOGIST by Gibran Garzon M.D. [email or web address]
[2019-07-30 21:52] LABS: Potassium 5.6 mmol/L (3.5-5.1)
[2019-07-30 21:54] LABS: Troponin 5 2HR 45.02 ng/mL (0-15)
[2019-07-30 21:57] LABS: Troponin 5 2HR Delta -3.98 ABS# (0-10)
[2019-07-30] MEDS: heparin 5,000 unit/mL INJ 1 mL 5000 UNIT SUBCUT (21:57)
[2019-07-31] VITALS (27 sets, daily range): BP systolic 89–131; BP diastolic 53–72; PULSE 73–87; RESP 15–26; TEMP 36.6–37.2; O2SAT 95–100
[2019-07-31 00:08] LABS: Potassium 5.4 mmol/L (3.5-5.1)
[2019-07-31 00:15] LABS: Glucose Point of Care 80 mg/dL (70-110)
--- NOTE | 2019-07-31 00:38 | ECG_ITS ---
Measurements Intervals [place] Rate: 76 P: 31 FL: 187 QRS: -39 QRSD: 92 T: 133 QT: 392 QTc: 441 SINUS RHYTHM MARKED LEFT AXIS DEVIATION [QRS AXIS < -30] ST DEVIATION AND MODERATE T-WAVE ABNORMALITY, CONSIDER ANTEROLATERAL ISCHEMIA [-0.1+ mV T WAVE IN V3-V6] Compared to ECG 11/30/2018 10:36:46 No significant changes Electronically Signed On 07-31-2019 11:33:24 VACUUM [employer] by Gibran Garzon M.D. [email or web address]
[2019-07-31] MEDS: sodium chloride 0.9% 1,000 ML 30 ML IV (00:42)
[2019-07-31 01:27] LABS: Troponin 5 6HR 50.57 ng/L (0-15); Troponin 5 6HR Delta 1.57 ng/L (0-12)
[2019-07-31] MEDS: acetaminophen 325 mg Tablet 650 MG PO (02:48)
[2019-07-31 05:15] LABS: Basophils # 0.1 10^3/uL (0.0-0.1); Basophils % 0.5 %; Eosinophils # 0.2 10^3/uL (0.0-0.8); Eosinophils % 1.6 %; Hematocrit 23.5 % (42.0-52.0); Hemoglobin 7.3 g/dL (11.7-16.6); Lymphocytes # 2.1 10^3/uL (0.8-4.8); Lymphocytes % 20.6 %; Mean Corpuscular HGB Conc 31.1 g/dL (30.0-36.0); Mean Corpuscular Hemoglobin 26.5 pg (28.0-34.0); Mean Corpuscular Volume 85.5 fL (80-94); Mean Platelet Volume 9.7 fL (7.4-10.4); Monocytes % 9.4 %; Neutrophils # 6.8 10^3/uL (1.8-7.7); Neutrophils % 67.2 %; Nucleated Red Blood Cells % 0 %; Platelet Count 262 10^3/cmm (130-400); Red Blood Count 2.75 10^6/uL (4.1-5.3); Red Cell Distribution Width 14.9 % (12.1-15.1); White Blood Count 10.1 10^3/uL (4.0-10.0)
--- NOTE | 2019-07-31 05:36 | PC.NURSE ---
Hospitalist notified about hemoglobin of 9.1 to 7.3. No new orders at this time. Will continue to monitor.
[2019-07-31 05:37] LABS: Alanine Aminotransferase 22 U/L (0-41); Albumin Level 3.3 g/dL (3.5-5.2); Alkaline Phosphatase 119 IU/L (40-130); Anion Gap 16.7 (5-19); Aspartate Amino Transferase 16 U/L (0-40); Blood Urea Nitrogen 49 mg/dL (8-23); Calcium 9.2 mg/Dl (8.8-10.2); Carbon Dioxide 19 mmol/L (22-29); Chloride 110 mmol/L (98-107); Cholesterol 84 mg/dL (0-200); Globulin 3.2 g/dL (1.3-4.6); Glucose 156 mg/dL (74-106); HDL Cholesterol 24 mg/dL (60-100); LDL Cholesterol Calculated 10 mg/dL (50-129); LDL HDL Ratio 0.42 RATIO (0.00-3.22); Potassium 5.7 mmol/L (3.5-5.1); Sodium 140 mmol/L (136-145); Total Bilirubin 0.2 mg/dL (0.15-1.2); Total Protein 6.5 g/dL (6.6-8.7); Triglycerides 250 mg/dL (0-150)
[2019-07-31 07:24] LABS: Glucose Point of Care 153 mg/dL (70-110)
--- NOTE | 2019-07-31 08:45 | P.PN_ITS ---
Subjective Subjective: Interval history: Status post urgent hemodialysis yesterday. Potassium after dialysis at 5.4, at 5.7 this morning. BUN 49, creatinine 3.0. Charted urine output at 300 mL. At 7.3. Serial troponins negative. Renal CT pending. Hemodynamically stable. Heart rate ranging between 73-80. Bradycardia resolved. Persisting T wave inversions in 1 aVL V4 through V6. Per review of old EKGs these appear to be persistent since at least 2018. Chest and abdominal x-ray without any gross abnormalities. Right upper quadrant ultrasound with no suggestion of cholecystitis. Creatinine kinase unremarkable Medications: Reviewed: Yes Vitals/I&O/Wt Last Vital Signs Temp 97.8 F 07/31/19 08:00 Pulse 73 07/31/19 08:00 Resp 23 H 07/31/19 08:00 BP 98/53 07/31/19 08:00 Pulse Ox 99 07/31/19 08:00 07/30/19 07/31/19 07/31/19 22:59 06:59 14:59 Intake Total 1100 / 1160 300 / 300 Output Total 300 / 300 Balance 800 / 860 300 / 300 Weight last 48 hrs Weight 81.647 kg Weight 81.647 kg Physical Exam Const: COMMON NORMALS: no apparent distress, oriented x3 and alert Resp: EFFORT & INSPECTION: Yes able to speak in complete sentences and Yes symmetric chest movement Cardio: COMMON NORMALS: regular rate, regular rhythm, S1 normal heart sound, S2 normal heart sound, no gallops, no clicks, no murmurs and peripheral pulses 2+ throughout JUGULAR VENOUS DISTENTION: no JVD RATE: regular rate RHYTHM: regular rhythm HEART SOUNDS: S1 normal and S2 normal PERIPHERAL PULSES: pulses 2+ throughout GI: COMMON NORMALS: normal to inspection, nondistended, normoactive bowel sounds PALPATION: Yes tender Neuro: COMMON NORMALS: oriented x3, CN's II-XII intact bilaterally and deep tendon reflexes 2+ bilaterally SENSORIUM/ORIENTATION: Yes alert Data : 07/31/19 04:37 07/31/19 04:37 Micro: Microbiology 07/30/19 13:10 Blood Culture - Preliminary Blood SPECIMEN COLLECTED 07/30/19 17:20 Blood Culture - Preliminary Blood SPECIMEN COLLECTED A&P Assessment and plan (1) Acute hyperkalemia: K x 2 at >9 at admission, nephrology consulted, s/p urgent HD Unfortunately HD cath clotted this am, not functioning. Will consult surgery if further HD planned Unclear cause of metabolic abnormalities Could have been contributed by medications incl Lisinopril, metformin cannot r/o sepsis - Thus far sepsis w/up negative with negative blood cx, no cholecytitis on USG RUQ, negative lactate, UA not s/o UTI, normal CXR and AXR Empiric Ceftriaxone until blood cx negative x 48 hrs No evidence of rhabdomyolysis Renal CT to r/o obstructive uropathy pending Continue IVF NS @75cc/hr Keep [place], I/O accurate assessment Bradycardia improved, T wave changes appear chronic after reviewing EKGs from 2 019. recheck K at 4pm Status: Acute Code(s): E87.5 - Hyperkalemia (2) Acute renal failure: as above under hyperkalemia check echo to estimate EF , r/o cardiorenal syndrome Serum immunofixation with migrating band in b2 region Status: Acute Qualifiers: Acute renal failure type: unspecified Qualified Code(s): N17.9 - Acute kidney failure, unspecified Code(s): N17.9 - Acute kidney failure, unspecified (3) Dementia: rehabilitation services coordinator consult to assess safety of living situation Status: Acute Code(s): F03.90 - Unspecified dementia without behavioral disturbance (4) Diabetes mellitus: Insulin sliding scale for now Hba1c 6.5 Status: Acute Code(s): E11.9 - Type 2 diabetes mellitus without complications (5) Atrial fibrillation: h/o A fib, currently in sinus rhythm not on a/c for h/o GI bleed, did not follow though with recommendatiosn for UGI/colonosscopy. Status: Acute Code(s): I48.91 - Unspecified atrial fibrillation (6) Hypertension: hold lisinopril will use amlodipine + hydralazine prn if needed Status: Acute Code(s): I10 - Essential (primary) hypertension (7) Leukocytosis: sepsis w/up as above Status: Acute Code(s): D72.829 - Elevated white blood cell count, unspecified (8) Anemia: check iron, folate and B12 levels Check gastrioccult H&H at 4pm, plan to transfuse if hb <7 Status: Acute Code(s): D64.9 - Anemia, unspecified Attestations Medical Necessity Statement*: w/up and management of JED, hyperkalemia Coding Level of Care Code Acute Handbook Writer for [facility] Fwd Diagnoses Acute hyperkalemia E87.5 Acute renal failure N17.9 Acute renal failure type: unspecified Dementia F03.90 Diabetes mellitus E11.9 Atrial fibrillation I48.91 Hypertension I10 Leukocytosis D72.829 Anemia D64.9
--- NOTE | 2019-07-31 08:54 | USCV_ITS ---
Gagan Gandhi Age: 73 Gender: M : 1945 Exam Date: 07/31/2019 10:54 Ordering Phys: Tamara Candelaria MD Technologist: Rosana Marrero [place] [facility] [place]: Estimate EF, past h/o CAD, now with JED BP: / HR: Rhythm: Sinus Technical Quality: Technically difficult study MEASUREMENTS (Male / Female) Normal Values 2D ECHO LV Diastolic Diameter PLAX 3.7 cm 4.2 - 5.9 / 3.9 - 5.3 cm LV Systolic Diameter PLAX 1.8 cm LV Chamber Size 4.9 cm IVS Diastolic Thickness 1.6 cm 0.6 - 1.0 / 0.6 - 0.9 cm IVS Systolic Thickness 2.4 cm LVPW Diastolic Thickness 1.2 cm 0.6 - 1.0 / 0.6 - 0.9 cm LVPW Systolic Thickness 1.8 cm RV Chamber Size 3.1 cm LVOT Diameter 1.9 cm LV Ejection Fraction 2D Teich 82.3 % LA Diameter 3.1 cm LA Width 3.0 cm LA Height 5.9 cm RA Width 3.5 cm RA Height 5.5 cm Aorta at Sinotubular Diameter 3.4 cm M-MODE LV Diastolic Diameter MM 4.2 cm 4.2 - 5.9 / 3.9 - 5.3 cm LV Systolic Diameter MM 2.5 cm LV Ejection Fraction MM Teich 71.0 % IVS Diastolic Thickness MM 1.1 cm 0.6 - 1.0 / 0.6 - 0.9 cm IVS Systolic Thickness MM 1.4 cm LVPW Diastolic Thickness MM 1.1 cm 0.6 - 1.0 / 0.6 - 0.9 cm LVPW Systolic Thickness MM 1.6 cm Aortic Annulus Diameter 4.0 cm LA Ao Ratio MM 0.8 MV E Point Septal Separation 0.7 cm DOPPLER AV Peak Velocity 111.0 cm/s LVOT Peak Velocity 90.0 cm/s AV Area Cont Eq vti 2.4 cm squared AV Area Cont Eq pk 2.3 cm squared MV Area PHT 4.3 cm squared Mitral E to A Ratio 0.8 MV E' Velocity 6.0 cm/s Mitral E to MV E' Ratio 11.2 Mitral E to LV E' Lateral Ratio 9.1 Mitral E to LV E' Septal Ratio 14.5 TR Peak Velocity 260.0 cm/s TR Peak Gradient 27.0 mmHg TV Peak E Velocity 53.0 cm/s Right Atrial Pressure 8.0 mmHg Pulmonary Artery Systolic Pressu 35.0 mmHg FINDINGS Left Ventricle The ventricle is poorly seen. It is likely normal in size and function. There is mild left ventricular hypertrophy. Cannot determine wall motion disturbances. Grade 1 diastolic dysfunction. Rough estimate of ejection fraction 60%. Right Ventricle Normal right ventricular size and systolic function. Mild pulmonary hypertension, RVSP 35 mmHg. Right Atrium The right atrium is normal in size. Left Atrium The left atrium is normal in size. Mitral Valve Mitral valve not well visualized. Aortic Valve Aortic valve not well visualized. No aortic valve regurgitation. No aortic valve stenosis. Tricuspid Valve Tricuspid valve not well visualized. Pulmonic Valve Pulmonic valve not well visualized. Trace pulmonary valve regurgitation. Pericardium Normal pericardium without effusion. Aorta Normal ascending aorta dimension. CONCLUSIONS The ventricle is poorly seen. It is likely normal in size and function. There is mild left ventricular hypertrophy. Cannot determine wall motion disturbances. Grade 1 diastolic dysfunction. Rough estimate of ejection fraction 60%. Normal right ventricular size and systolic function. Mild pulmonary hypertension, RVSP 35 mmHg. There are no prior echocardiogram studies to compare. Dr. Gibran Garzon MD (Electronically Signed) Final Date: 31 July 2019 11:43 S
[2019-07-31] MEDS: atorvastatin 40 mg Tablet 20 MG PO (09:14)
[2019-07-31] MEDS: heparin 5,000 unit/mL INJ 1 mL 5000 UNIT SUBCUT ×2 (09:15→21:43)
[2019-07-31] MEDS: gabapentin 400 mg Capsule PO (09:15)
[2019-07-31] MEDS: aspirin 81 mg EC Tablet PO (09:15)
[2019-07-31] MEDS: folic acid 1 mg Tablet PO (09:15)
--- NOTE | 2019-07-31 09:54 | P.PN_ITS ---
Subjective Subjective: Interval history: Status post urgent hemodialysis yesterday. Now feels ok and is relatively asymptomatic. No edema, no other volume assoc Sx. Passing urine with good volumes. Hemodynamics look stable. Picture remains unclear Medications: Reviewed: Yes Vitals/I&O/Wt Last Vital Signs Temp 97.8 F 07/31/19 08:00 Pulse 73 07/31/19 08:00 Resp 23 H 07/31/19 08:00 BP 98/53 07/31/19 08:00 Pulse Ox 99 07/31/19 08:00 07/30/19 07/31/19 07/31/19 22:59 06:59 14:59 Intake Total 1100 / 1160 300 / 300 Output Total 300 / 300 Balance 800 / 860 300 / 300 Weight last 48 hrs Weight 81.647 kg Weight 81.647 kg Physical Exam Const: COMMON NORMALS: no apparent distress, average body habitus and oriented x3 HENMT: COMMON NORMALS: normocephalic and head/scalp atraumatic HEAD & SCA LP: normocephalic and atraumatic Neck/C-Spine: COMMON NORMALS: no JVD Chest: COMMONS NORMALS: inspection of chest normal and palpation of chest normal Resp: COMMON NORMALS: normal respiratory effort and no retractions Cardio: COMMON NORMALS: no JVD and regular rate RATE: regular rate GI: COMMON NORMALS: normal to inspection, nondistended, normoactive bowel sounds Neuro: COMMON NORMALS: oriented x3 and moves all extremities Data : 07/31/19 04:37 07/31/19 04:37 Micro: Microbiology 07/30/19 13:10 Blood Culture - Preliminary Blood SPECIMEN COLLECTED 07/30/19 17:20 Blood Culture - Preliminary Blood SPECIMEN COLLECTED A&P Additional A&P Information 1. JED and hyperkalemia - critical hyperkalemia with 1st degree heart block - cause is not clear but use of ACEi likely to have contributed - Will send broader serology w/u including SPEP, ANCA, SHELLY, complements - no role for renal biopsy at this time (somewhat depends on how he recovers function) - his relative asymptomaticness suggests this has been evolving for some time - s/p line placement and emergency dialysis; no indication for dialysis today but will closely monitor over the next few days - good oral intake and no role for ivf at this time - abdo imaging ordered; pending CT scan of abdo and pelvis - dose meds for eGFR < 15 2. Weakness - likely to be due to hyperK - PT /OT 3. Hypertension - strict monitoring of hemodynamics - Bp meds on hold for now - would now classify ACEi as an intolerance 4. Anemia - will check iron levels - EPO dosing once today - thanks, will follow closely Attestations Medical Necessity Statement*: eval for renal failure and critical hyperK Coding Level of Care Code Acute Digital Computer Systems Analyst for [facility]
[2019-07-31 11:34] LABS: Glucose Point of Care 185 mg/dL (70-110)
[2019-07-31] MEDS: epoetin alfa 10,000 unit/mL INJ 10000 UNIT SUBCUT (12:03)
[2019-07-31 12:12] LABS: Iron 30 ug/dL (59-158); Percent Saturation 12.7 % (20-50); Total Iron Binding Capacity 235 mg/dL; Unsaturated Iron Binding 205 ug/dL (112-347)
[2019-07-31 12:28] LABS: Vitamin B12 180 pg/mL (232-1245)
[2019-07-31 16:39] LABS: Hematocrit 20.9 % (42.0-52.0); Hemoglobin 6.5 g/dL (11.7-16.6)
[2019-07-31 16:58] LABS: Alanine Aminotransferase 18 U/L (0-41); Albumin Level 3.3 g/dL (3.5-5.2); Alkaline Phosphatase 110 IU/L (40-130); Anion Gap 16.1 (5-19); Aspartate Amino Transferase 14 U/L (0-40); Blood Urea Nitrogen 48 mg/dL (8-23); Carbon Dioxide 20 mmol/L (22-29); Chloride 106 mmol/L (98-107); Globulin 3.1 g/dL (1.3-4.6); Glucose 139 mg/dL (74-106); Potassium 6.1 mmol/L (3.5-5.1); Sodium 136 mmol/L (136-145); Total Bilirubin 0.2 mg/dL (0.15-1.2); Total Protein 6.4 g/dL (6.6-8.7)
[2019-07-31 17:03] LABS: Glucose Point of Care 126 mg/dL (70-110)
[2019-07-31] MEDS: cefTRIAXone 1,000 MG in sodium chloride 0.9% (plus) 50 ML 100 MG IV (17:06)
[2019-07-31] MEDS: iron polysaccharide complex 150 mg Capsule PO (17:06)
--- NOTE | 2019-07-31 18:38 | CTR_ITS ---
PROCEDURE INFORMATION: Exam: CT Abdomen And Pelvis Without Contrast Exam date and time: 07/31/2019 8:42 AM Age: 73 years old Clinical indication: Condition or disease; Other: New daisy, possible obstruction; Additional info: New daisy. Evalute for obstruction TECHNIQUE: Imaging protocol: Computed tomography of the abdomen and pelvis without contrast. Total DLP: 1575.19 mGy-cm Radiation optimization: All CT scans at this facility use at least one of these dose optimization techniques: automated exposure control; mA and/or kV adjustment per patient size (includes targeted exams where dose is matched to clinical indication); or iterative reconstruction. COMPARISON: CT abdomen pelvis w con* [id number] 01/29/2018 12:09 AM FINDINGS: Lungs: There is linear atelectasis versus scarring within the right lower lobe and lingula. Calcified granuloma within the right middle lobe is again noted. Patchy opacity within the posterior left lower lobe favors atelectasis. Liver: Liver calcifications are noted. Gallbladder and bile ducts: No calcified stones. No ductal dilation. Pancreas: There is mild-moderate inflammatory stranding along the pancreatic tail with a small amount of adjacent fluid. Spleen: Normal. No splenomegaly. Adrenals: Right adrenal myelolipoma is again noted. Thickening versus lesion of intermediate density within the left adrenal gland is unchanged. Kidneys and ureters: There is mild bilateral perinephric stranding. There is no evidence of hydronephrosis. Subcentimeter hypodensity within the left kidney is too small to adequately characterize. No renal or ureteral calcifications are identified. Stomach and bowel: Small bowel postoperative changes are again noted with focal dilation at the level of the anastomosis. There is no other evidence of bowel obstruction. There is scattered diverticulosis with trace stranding along the distal descending colon. Appendix: No evidence of appendicitis. Intraperitoneal space: No free air. No significant fluid collection. Vasculature: Coronary atherosclerotic calcifications are noted. Aortoiliac and branch vessel atherosclerotic calcifications are noted. Lymph nodes: No enlarged lymph nodes. Bladder: The bladder is partially distended and there is partial unchanged extension into the right inguinal canal. Reproductive: Coarse calcifications are again noted within the prostate.. Bones/joints: There are multilevel degenerative changes of the spine. There are no acute osseous findings. Soft tissues: Small fat containing periumbilical hernia is again noted. There is a small amount of fat within the left inguinal canal. Few small locules of subcutaneous emphysema within the right anterior abdominal wall soft tissues is likely iatrogenic and related to subcutaneous injections. CT/CT kidney stone [id number] IMPRESSION: 1. Inflammatory stranding and a small amount of fluid adjacent to the pancreatic tail, concerning for pancreatitis. 2. Mild bilateral perinephric stranding without evidence of hydronephrosis. No renal or ureteral calcifications are identified. Correlate to exclude recently passed stone versus pyelonephritis. 3. Diverticulosis with trace stranding along the distal descending colon. Correlate to exclude early diverticulitis/colitis. 4. Postoperative change involving the small bowel with focal dilation at the level of the anastomosis. Findings appear similar when compared with prior imaging and are of uncertain clinical significance. There is no other evidence of bowel obstruction. 5. Patchy opacity within the posterior left lower lobe favors atelectasis. Correlate to exclude early consolidation. 6. Additional nonacute findings as detailed above. Radiation Dose CTDIVOL = (mGy): DLP = 1575.19 (mGy-cm)
[2019-07-31] MEDS: dextrose 50% syringe 50 mL IVP (19:11)
[2019-07-31] MEDS: insulin regular-human 10 UNIT in SYRINGE 1 EACH IVP (19:12)
[2019-07-31 19:21] LABS: Glucose Point of Care 211 mg/dL (70-110)
[2019-07-31] MEDS: sodium chloride 0.9% 1,000 ML 75 ML IV (19:23)
[2019-07-31] MEDS: sodium polystyrene sulfonate 15 gm/60 mL Btl PO (19:24)
[2019-08-01] VITALS (28 sets, daily range): BP systolic 106–156; BP diastolic 60–118; PULSE 69–161; RESP 14–28; TEMP 36.6–37; O2SAT 86–100; BMI 29.9
[2019-08-01] MEDS: sodium chloride 0.9% 100 ML ×2 (01:06→01:43)
[2019-08-01 05:52] LABS: Basophils % 0.5 %; Eosinophils # 0.2 10^3/uL (0.0-0.8); Eosinophils % 2.3 %; Hematocrit 26.6 % (42.0-52.0); Hemoglobin 8.4 g/dL (11.7-16.6); Lymphocytes # 1.7 10^3/uL (0.8-4.8); Lymphocytes % 19.5 %; Mean Corpuscular HGB Conc 31.6 g/dL (30.0-36.0); Mean Corpuscular Hemoglobin 26.8 pg (28.0-34.0); Mean Corpuscular Volume 84.7 fL (80-94); Mean Platelet Volume 9.2 fL (7.4-10.4); Monocytes # 0.9 10^3/uL (0.2-0.9); Monocytes % 10.9 %; Neutrophils # 5.7 10^3/uL (1.8-7.7); Neutrophils % 66.2 %; Nucleated Red Blood Cells % 0 %; Platelet Count 187 10^3/cmm (130-400); Red Blood Count 3.14 10^6/uL (4.1-5.3); Red Cell Distribution Width 14.6 % (12.1-15.1); White Blood Count 8.6 10^3/uL (4.0-10.0)
[2019-08-01 06:10] LABS: Alanine Aminotransferase 17 U/L (0-41); Albumin Level 3.3 g/dL (3.5-5.2); Alkaline Phosphatase 113 IU/L (40-130); Anion Gap 15.4 (5-19); Aspartate Amino Transferase 15 U/L (0-40); Blood Urea Nitrogen 40 mg/dL (8-23); Calcium 8.7 mg/Dl (8.8-10.2); Carbon Dioxide 20 mmol/L (22-29); Chloride 107 mmol/L (98-107); Globulin 3.2 g/dL (1.3-4.6); Glucose 142 mg/dL (74-106); Potassium 5.4 mmol/L (3.5-5.1); Sodium 137 mmol/L (136-145); Total Bilirubin 0.7 mg/dL (0.15-1.2); Total Protein 6.5 g/dL (6.6-8.7)
[2019-08-01 07:35] LABS: Glucose Point of Care 122 mg/dL (70-110)
[2019-08-01] MEDS: metoprolol tartrate 1 mg/1 mL SDV 5 mL 5 MG IV (07:42)
[2019-08-01] MEDS: folic acid 1 mg Tablet PO (08:21)
[2019-08-01] MEDS: gabapentin 400 mg Capsule PO (08:21)
[2019-08-01] MEDS: aspirin 81 mg EC Tablet PO (08:21)
[2019-08-01] MEDS: atorvastatin 40 mg Tablet 20 MG PO (08:21)
[2019-08-01] MEDS: iron polysaccharide complex 150 mg Capsule PO ×2 (08:21→17:08)
--- NOTE | 2019-08-01 08:37 | PM.PN ---
Subjective Subjective: Interval history: K 5.4 this morning. Hb 6.5 last evening, s/p transfusion 2 units last evening. This am went into A fib with Hr 140s-150s, asymptomatic, eating breakfast at the time. Cr improving to 2.5. Echo limited study, ef ~60%, g 1 diastolic dysfunction, mild pulm HTN. No acute obstructive process noted on CT. Urine Medications: Reviewed: Yes Vitals/I&O/Wt Last Vital Signs Temp 98.6 F 08/01/19 08:00 Pulse 142 H 08/01/19 08:00 Resp 18 08/01/19 08:00 BP 141/118 08/01/19 08:00 Pulse Ox 96 08/01/19 08:00 07/31/19 08/01/19 08/01/19 22:59 06:59 14:59 Intake Total 1186.25 / 2036.25 700 / 2736.25 240 / 240 Output Total 550 / 550 675 / 1225 100 / 100 Balance 636.25 / 1486.25 25 / 1511.25 140 / 140 Weight last 48 hrs Weight 81.601 kg Weight 81.647 kg Weight 81.647 kg Physical Exam Const: COMMON NORMALS: no apparent distress, oriented x3 and alert OTHER: appears pale. Resp: EFFORT & INSPECTION: Yes able to speak in complete sentences and Yes symmetric chest movement Cardio: COMMON NORMALS: regular rate, regular rhythm, S1 normal heart sound, S2 normal heart sound, no gallops, no clicks, no murmurs and peripheral pulses 2+ throughout JUGULAR VENOUS DISTENTION: no JVD RATE: regular rate RHYTHM: regular rhythm HEART SOUNDS: S1 normal and S2 normal PERIPHERAL PULSES: pulses 2+ throughout GI: COMMON NORMALS: normal to inspection, nondistended, normoactive bowel sounds PALPATION: Yes tender Neuro: COMMON NORMALS: oriented x3, CN's II-XII intact bilaterally and deep tendon reflexes 2+ bilaterally SENSORIUM/ORIENTATION: Yes alert OTHER: . Data : 08/01/19 05:40 08/01/19 05:40 Micro: Microbiology 07/30/19 13:10 Blood Culture - Preliminary Blood NEGATIVE TO DATE 07/30/19 17:20 Blood Culture - Preliminary Blood NEGATIVE TO DATE Attestation for Other Data: I personally reviewed and interpreted the following: Other data: CT/CT kidney stone [id number] IMPRESSION: 1. Inflammatory stranding and a small amount of fluid adjacent to the pancreatic tail, concerning for pancreatitis. 2. Mild bilateral perinephric stranding without evidence of hydronephrosis. No renal or ureteral calcifications are identified. Correlate to exclude recently passed stone versus pyelonephritis. 3. Diverticulosis with trace stranding along the distal descending colon. Correlate to exclude early diverticulitis/colitis. 4. Postoperative change involving the small bowel with focal dilation at the level of the anastomosis. Findings appear similar when compared with prior imaging and are of uncertain clinical significance. There is no other evidence of bowel obstruction. 5. Patchy opacity within the posterior left lower lobe favors atelectasis. Correlate to exclude early consolidation. 6. Additional nonacute findings as detailed above. A&P Assessment and plan (1) Acute hyperkalemia: K x 2 at >9 at admission, nephrology consulted, s/p urgent HD on 07/30/18 HD cath now not functioning. K stabilized, cr improving, making urine. Will remove current catheter, replace only if needed. Unclear cause of metabolic abnormalities. Could have been contributed by medications incl Lisinopril, metformin. cannot r/o sepsis - Thus far sepsis w/up negative with negative blood cx, no cholecytitis on USG RUQ, negative lactate, UA not s/o UTI, normal CXR and AXR , however on CT abdomen yesterday note made of possible pancreatitis/possible diverticulitis/possible pyelonephritis. Patient had some RUQ tenderness and few episodes of diarrhea on presentation, will continue empiric CTX for short course of 7 days as cannot r/o above possibilities conclusively. No obstruction in KUB system noted Stop IVF today as patient able to eat reliably. Also with HR 160s-180s, do not want to precipitate CHF. Bradycardia now with Af fib with RVR with HR 150s-160s, s/p iv metoprolol, iv cardizem x1 with no change- start cardizem infusion. A fib/RVR likely 2/2 holding b blockers over the past 2 days. Resume metoprolol 75mg BID home dose recheck h&H, K at 4pm Status: Acute Code(s): E87.5 - Hyperkalemia (2) Acute renal failure: as above under hyperkalemia check echo to estimate EF , r/o cardiorenal syndrome Serum immunofixation with migrating band in b2 region Status: Acute Qualifiers: Acute renal failure type: unspecified Qualified Code(s): N17.9 - Acute kidney failure, unspecified Code(s): N17.9 - Acute kidney failure, unspecified (3) Dementia: university services program associate consult to assess safety of living situation Status: Acute Code(s): F03.90 - Unspecified dementia without behavioral disturbance (4) Diabetes mellitus: Insulin sliding scale for now Hba1c 6.5 Status: Acute Code(s): E11.9 - Type 2 diabetes mellitus without complications (5) Atrial fibrillation: h/o A fib, now in RVR restart home dose of metoprolol Start cardizem drip and titrate as needed not on a/c for h/o GI bleed, did not follow though with recommendatiosn for UGI/colonosscopy. Currently anemic Status: Acute Code(s): I48.91 - Unspecified atrial fibrillation (6) Hypertension: hold lisinopril. added as allergy to chart will use amlodipine + hydralazine prn if needed Status: Acute Code(s): I10 - Essential (primary) hypertension (7) Leukocytosis: sepsis w/up as above Status: Acute Code(s): D72.829 - Elevated white blood cell count, unspecified (8) Anemia: Continue daily iron, b12 and folate supplementation H&H at 4pm, plan to transfuse if hb <7 Status: Acute Code(s): D64.9 - Anemia, unspecified Attestations Medical Necessity Statement*: management of JED, hyperK, A fib with RVR on cardizem infusion Coding Level of Care Code Acute Wage Conciliator for [facility] Fwd Diagnoses Acute hyperkalemia E87.5 Acute renal failure N17.9 Acute renal failure type: unspecified Dementia F03.90 Diabetes mellitus E11.9 Atrial fibrillation I48.91 Hypertension I10 Leukocytosis D72.829 Anemia D64.9
[2019-08-01] MEDS: metroNIDAZOLE 500 MG Tablet PO ×3 (09:00→21:51)
[2019-08-01] MEDS: metoprolol tartrate 50 mg Tablet 75 MG PO ×2 (09:00→17:08)
[2019-08-01] MEDS: heparin 5,000 unit/mL INJ 1 mL 5000 UNIT SUBCUT (09:02)
[2019-08-01] MEDS: epoetin alfa 10,000 unit/mL INJ 10000 UNIT SUBCUT (09:03)
[2019-08-01 09:05] LABS: Magnesium 1.7 mg/dL (1.7-2.3)
[2019-08-01] MEDS: sodium chloride 0.9% 1,000 ML 75 ML IV (10:09)
[2019-08-01] MEDS: cyanocobalamin 1,000 mcg/mL SDV 1000 MCG IM (10:10)
--- NOTE | 2019-08-01 11:18 | PM.PN ---
Subjective Subjective: Interval history: Feels well. Dementia and poor recall but he is comfortable. Afib last night. No other new issues. Labs reviewed with him. No edema or other volume issues. No uremic Sx and he is making urine Medications: Reviewed: Yes Vitals/I&O/Wt Last Vital Signs Temp 98.6 F 08/01/19 08:00 Pulse 153 H 08/01/19 10:00 Resp 25 H 08/01/19 10:00 BP 136/75 08/01/19 10:00 Pulse Ox 98 08/01/19 10:00 07/31/19 08/01/19 08/01/19 22:59 06:59 14:59 Intake Total 1186.25 / 2036.25 700 / 2736.25 667.5 / 667.5 Output Total 550 / 550 675 / 1225 100 / 100 Balance 636.25 / 1486.25 25 / 1511.25 567.5 / 567.5 Weight last 48 hrs Weight 81.601 kg Weight 81.647 kg Weight 81.647 kg Physical Exam Const: COMMON NORMALS: no apparent distress, average body habitus and oriented x3 HENMT: COMMON NORMALS: normocephalic and head/scalp atraumatic HEAD & SCALP: normocephalic and atraumatic Neck/C-Spine: COMMON NORMALS: no JVD Chest: COMMONS NORMALS: inspection of chest normal and palpation of chest normal Resp: COMMON NORMALS: normal respiratory effort and no retractions Cardio: COMMON NORMALS: no JVD and regular rate RATE: regular rate GI: COMMON NORMALS: normal to inspection, nondistended, normoactive bowel sounds Neuro: COMMON NORMALS: oriented x3 and moves all extremities Data : 08/01/19 05:40 08/01/19 05:40 Micro: Microbiology 07/30/19 13:10 Blood Culture - Preliminary Blood NEGATIVE TO DATE 07/30/19 17:20 Blood Culture - Preliminary Blood NEGATIVE TO DATE A&P Additional A&P Information 1. JED and hyperkalemia - appears to be ACEi related but this is somewhat speculative given paucity of history - making a good recovery - baseline creatinine ~1.6, creatinine coming down - K controlled and no indication for dialysis - ok to remove dialysis line - dose meds for eGFR < 15 2. Weakness - likely to be due to hyperK - PT /OT - appears to be recovering 3. Hypertension - Afib; mgmt per ICU; on amio gtt - Bp meds on hold for now - would now classify ACEi as an intolerance - renal issues now recovering; will sign off and follow peripherally at this time, - thanks Attestations Medical Necessity Statement*: jayeal for JED, hyperK Coding Level of Care Code Acute Life Support Technician for [facility] Morales
[2019-08-01 11:39] LABS: Glucose Point of Care 232 mg/dL (70-110)
--- NOTE | 2019-08-01 14:11 | PM.PN ---
Subjective Subjective: Interval history: Patient overall feels better, responded well to urgent hemodialysis last Friday After talking with the dialysis nurse it seems that the catheter was positional that it did its job at that time, no further dialysis is required from nephrology service and patient is recovering appropriately. I was approached by hospitalist service to DC the catheter since it is not needed anymore Vitals/I&O/Wt Last Vital Signs Temp 98.6 F 08/01/19 08:00 Pulse 100 08/01/19 13:00 Resp 21 H 08/01/19 13:00 BP 136/75 08/01/19 11:00 Pulse Ox 86 L 08/01/19 13:00 07/31/19 08/01/19 08/01/19 22:59 06:59 14:59 Intake Total 1186.25 / 2036.25 700 / 2736.25 1027.5 / 1027.5 Output Total 550 / 550 675 / 1225 300 / 300 Balance 636.25 / 1486.25 25 / 1511.25 727.5 / 727.5 Weight last 48 hrs Weight 179 lb 14.4 oz Weight 180 lb Physical Exam Const: COMMON NORMALS: no apparent distress and oriented x3 GENERAL APPEARANCE: cooperative ORIENTATION/CONSCIOUSNESS: Yes awake, Yes oriented to person, Yes oriented to place and Yes oriented to time HENMT: COMMON NORMALS: normocephalic HEAD & SCALP: normocephalic Eye: COMMON NORMALS: PERRL and no scleral icterus PUPIL: Yes PERRL Neck/C-Spine: COMMON NORMALS: supple (No evidence of hematoma or swelling at the site of the right internal jugular vein catheter) Neuro: COMMON NORMALS: oriented x3 SENSORIUM/ORIENTATION: Yes oriented to person, Yes oriented to place and Yes oriented to time Data : 08/01/19 05:40 08/01/19 05:40 Micro: Microbiology 07/30/19 13:10 Blood Culture - Preliminary Blood NEGATIVE TO DATE 07/30/19 17:20 Blood Culture - Preliminary Blood NEGATIVE TO DATE A&P Assessment and plan (1) Encounter regarding vascular access for dialysis for end-stage renal disease: Bedside removal of the 11.5 Urdu hemodialysis access catheter by me and pressure was applied for at least 10-minutes, patient tolerated it well and a medium sized Tegaderm was applied. Please hold the next heparin subcu dose and resume the following 1. Should the patient encounter any bleeding at the site of the stick please hold pressure for at least 10 minutes hold all blood thinners. Thank you for consulting general surgery to participate taking care Status: Acute Code(s): N18.6 - End stage renal disease; Z99.2 - Dependence on renal dialysis Attestations Medical Necessity Statement*: Per hospitalist service Time Spent in Patient Care: 16 - 35 minutes Coding Level of Care Code Acute Flexographic Press Plate Setter for Chg Fwd Exam Problem Focused Diagnoses Encounter regarding vascular access for dialysis for end-stage renal disease N18.6; Z99.2 Time Spent (min) 20
--- NOTE | 2019-08-01 15:37 | PC.NURSE ---
TEMP DIALYSIS CATH REMOVAL Temporary dialysis cath removed by today. Pressure held until hemostasis achieved. Dressing applied. C/D/I. Patient tolerated procedure well.
[2019-08-01 16:05] LABS: Hematocrit 28.9 % (42.0-52.0)
[2019-08-01] MEDS: cefTRIAXone 1,000 MG in sodium chloride 0.9% (plus) 50 ML 100 MG IV (16:21)
[2019-08-01 16:25] LABS: Alanine Aminotransferase 17 U/L (0-41); Albumin Level 3.2 g/dL (3.5-5.2); Alkaline Phosphatase 130 IU/L (40-130); Anion Gap 17.8 (5-19); Aspartate Amino Transferase 17 U/L (0-40); Blood Urea Nitrogen 40 mg/dL (8-23); Calcium 9.1 mg/Dl (8.8-10.2); Carbon Dioxide 19 mmol/L (22-29); Chloride 108 mmol/L (98-107); Globulin 3.6 g/dL (1.3-4.6); Glucose 133 mg/dL (74-106); Potassium 5.8 mmol/L (3.5-5.1); Sodium 139 mmol/L (136-145); Total Bilirubin 0.3 mg/dL (0.15-1.2); Total Protein 6.8 g/dL (6.6-8.7)
[2019-08-01 18:27] LABS: Glucose Point of Care 127 mg/dL (70-110)
[2019-08-01 21:49] LABS: Glucose Point of Care 204 mg/dL (70-110)
[2019-08-02] VITALS (14 sets, daily range): BP systolic 124–168; BP diastolic 65–92; PULSE 61–72; RESP 18–25; TEMP 36.6–36.9; O2SAT 95–99; BMI 29.6
[2019-08-02 04:20] LABS: Basophils % 0.5 %; Eosinophils # 0.2 10^3/uL (0.0-0.8); Eosinophils % 2.7 %; Hematocrit 27.3 % (42.0-52.0); Hemoglobin 8.5 g/dL (11.7-16.6); Lymphocytes # 1.7 10^3/uL (0.8-4.8); Lymphocytes % 19.1 %; Mean Corpuscular HGB Conc 31.1 g/dL (30.0-36.0); Mean Corpuscular Hemoglobin 26.5 pg (28.0-34.0); Mean Platelet Volume 9.6 fL (7.4-10.4); Monocytes # 1.1 10^3/uL (0.2-0.9); Monocytes % 12.3 %; Neutrophils # 5.7 10^3/uL (1.8-7.7); Neutrophils % 64.4 %; Nucleated Red Blood Cells % 0 %; Platelet Count 222 10^3/cmm (130-400); Red Blood Count 3.21 10^6/uL (4.1-5.3); Red Cell Distribution Width 14.9 % (12.1-15.1); White Blood Count 8.9 10^3/uL (4.0-10.0)
[2019-08-02 04:40] LABS: Alanine Aminotransferase 16 U/L (0-41); Albumin Level 2.9 g/dL (3.5-5.2); Alkaline Phosphatase 116 IU/L (40-130); Anion Gap 17.1 (5-19); Aspartate Amino Transferase 16 U/L (0-40); Blood Urea Nitrogen 33 mg/dL (8-23); Calcium 9.1 mg/Dl (8.8-10.2); Carbon Dioxide 19 mmol/L (22-29); Chloride 109 mmol/L (98-107); Globulin 3.5 g/dL (1.3-4.6); Glucose 137 mg/dL (74-106); Potassium 5.1 mmol/L (3.5-5.1); Sodium 140 mmol/L (136-145); Total Bilirubin 0.2 mg/dL (0.15-1.2); Total Protein 6.4 g/dL (6.6-8.7)
[2019-08-02 07:17] LABS: Glucose Point of Care 128 mg/dL (70-110)
[2019-08-02] MEDS: folic acid 1 mg Tablet PO (08:55)
[2019-08-02] MEDS: cyanocobalamin 1,000 mcg Tablet 1000 MCG PO (08:55)
[2019-08-02] MEDS: metroNIDAZOLE 500 MG Tablet PO ×3 (08:55→22:29)
[2019-08-02] MEDS: aspirin 81 mg EC Tablet PO (08:56)
[2019-08-02] MEDS: gabapentin 400 mg Capsule PO (08:56)
[2019-08-02] MEDS: metoprolol tartrate 50 mg Tablet 75 MG PO ×2 (08:56→17:51)
[2019-08-02] MEDS: iron polysaccharide complex 150 mg Capsule PO ×2 (08:56→17:51)
[2019-08-02] MEDS: atorvastatin 40 mg Tablet 20 MG PO (08:56)
[2019-08-02] MEDS: heparin 5,000 unit/mL INJ 1 mL 5000 UNIT SUBCUT ×2 (11:39→22:29)
[2019-08-02] MEDS: amlodipine 5 mg Tablet PO (11:39)
[2019-08-02 11:53] LABS: Glucose Point of Care 270 mg/dL (70-110)
[2019-08-02 15:34] LABS: Hematocrit 28.6 % (42.0-52.0)
[2019-08-02] MEDS: cefTRIAXone 1,000 MG in sodium chloride 0.9% (plus) 50 ML 100 MG IV (16:08)
--- NOTE | 2019-08-02 17:26 | DCPLANNER ---
Pg 2 of IM explained to and signed by pt. No questions, copy provided.
[2019-08-02 17:49] LABS: Glucose Point of Care 183 mg/dL (70-110)
--- NOTE | 2019-08-02 18:18 | PC.CHAP ---
Pastoral Care Encounter/Spiritual Assessment Type of Contact [x] Declined binder operator visit [] Patient/Family/Request visit [] Outpatient visit [] Follow-up visit [] Physician referral [] Code/Alert [] Routine visit [] Staff referral [] Actively dying [] Patient sleeping [] Family support [] [] Out of room [] Palliative care [] [] Receiving care in room [] Pre-surgical visit [] Trauma [] Long length of stay [x] ICU visit [] Other: Relational/Emotional Strength [] Patient feels connected with others/family/visitors/staff [] Distress [] Loneliness/isolation [] Abandonment Spirituality of Patient [] Person of Layla [] Attends Bahai of their Layla [] Believes in Prayer [] Reads Bible or Scientology materials [] There are Spiritual issues to be addressed Chief Of Production Interventions [] Prayer [x] Active listening [x] Non-anxious presence [] Spiritual/emotional support [] Crisis/trauma care [] Spiritual counseling [] Bereavement support [] Provided bereavement packet [] Provided Bible/devotional materials [] Provided toy/stuffed animal, coloring book to patient or family member [x] Completed spiritual assessment [] Provided Communion [] Anointing/[place] [] Salvation [] Other: Impact on Illness or Injury [] Angry [] Fearful [] Anxious [] Often cries [] Exhaustion [] Unable to work [] Unable to attend christian [] Unable to walk/stand [] Unable to read [] Unable to drive [] Unable to eat/drink [] Unable to sleep [] Unable to be with family [] Other: Summary Patient declined prayer and stated he didn't need anything from the chaplains. I explained to the patient that the nurses know how to reach us if he should have the need to see a binder operator. Patient was visited by Chief Of Production Nguyễn Edwards Time spent with patient 3 minutes
--- NOTE | 2019-08-02 18:38 | P.PN_ITS ---
Subjective Subjective: Interval history: NO acute events overnight. Continues to be on cardizem 5 gtt, but HR better controlled with oral lopressor now. Mildly confused this AM and had to be redirected regarding reason for being in hospital but quickly remembered and was able to tell all the events leading to and after hospitalization. Denies any SOB, cough, headache, N/V Medications: Reviewed: Yes Vitals/I&O/Wt Last Vital Signs Temp 98.2 F 08/02/19 16:00 Pulse 66 08/02/19 16:00 Resp 21 H 08/02/19 16:00 BP 143/69 08/02/19 16:00 Pulse Ox 97 08/02/19 16:00 08/02/19 08/02/19 08/02/19 06:59 14:59 22:59 Intake Total 188.417 / 1735.917 500 / 500 360 / 860 Output Total 820 / 1220 400 / 400 120 / 520 Balance -631.583 / 515.917 100 / 100 240 / 340 Weight last 48 hrs Weight 80.739 kg Weight 81.601 kg Physical Exam Narrative: EXAM NARRATIVE: General: No acute distress, AO x3, forgetful HEENT: PERRLA, pupils bilaterally equal and reactive Chest: Normal vesicular breath sounds, no added sounds, equal good air entry bilaterally CVS: S1-S2 regular, no murmurs, no tachycardia, no gallops, no rubs Abdomen: Soft, nontender, no organomegaly, bowel sounds present Neuro: No focal deficits, no facial deformity, AO x3, power 5/5 in all limbs Data : 08/02/19 15:19 08/02/19 03:40 A&P Assessment and plan (1) Acute hyperkalemia: Resoleved. Needed one cycle of HD. Catherer removed yesterday. Unclear cause of metabolic abnormalities. Could have been contributed by medications incl Lisinopril, metformin. Cannot r/o sepsis - Thus far sepsis w/up negative with negative blood cx, no cholecytitis on USG RUQ, negative lactate, UA not s/o UTI, normal CXR and AXR , however on CT abdomen yesterday note made of possible pancreatitis/ possible diverticulitis/ possible pyelonephritis. Patient had some RUQ tenderness and few episodes of diarrhea on presentation, will continue empiric CTX for short course of 7 days as cannot r/o above possibilities conclusively. Today is Day 4/7. Will most likely need one dose of levoflox on d/c as per renal functions. Also c/w flagyl for over all 5 days. Day 2/5 No obstruction in KUB system noted f/u BMP QD Nephrology recs appreciated. Status: Acute Code(s): E87.5 - Hyperkalemia (2) Acute renal failure: As above. Meds reconciled for nephrotoxic drugs. No more ACEi in view of renal dysfuntion and severe hyperkalemia. Status: Acute Qualifiers: Acute renal failure type: unspecified Qualified Code(s): N17.9 - Acute kidney failure, unspecified Code(s): N17.9 - Acute kidney failure, unspecified (3) Atrial fibrillation: Rate controlled now in NSR. C/w home dose of lopressor at 75 mg BID Stop cardizem drip. Will monitor. Not on AC due to GI bleed, did not follow though with recommendatiosn for EGD/ colonoscopy. Will continue to hold. Have discussed EGD wants tyo follow up as outpatient. Status: Acute Code(s): I48.91 - Unspecified atrial fibrillation (4) Anemia: Severe CHACHA and AOCD C/w IV iron Day 2 Will d/c on PO Iron Monitor CBC daily, Stable for now. Will plan to transfuse if hb <7 Status: Acute Code(s): D64.9 - Anemia, unspecified (5) Diabetes mellitus: BS well controlled. Mild insulin sliding scale for now. Have needed 14 U in last 24 hrs. Hba1c 6.5 Most likely will d/c off metformin in view poor renal functions Status: Acute Code(s): E11.9 - Type 2 diabetes mellitus without complications (6) Hypertension: BP elevated mildly. Will start on Amlo 5 mg PO QD for now to have BP less than 140/90 Hold lisinopril. added as allergy to chart Status: Acute Code(s): I10 - Essential (primary) hypertension (7) Dementia: Can d/c on seroquel at 12.5 QHS. No home meds at present. Status: Acute Code(s): F03.90 - Unspecified dementia without behavioral disturbance Additional A&P Information Care coordination consulted for safe discharge. Patient has been denying SNF placement even for short term. But is agreeable to home health. Will try to set up for same. At present has inhome services once weekly. FC Heparin for DVT ppx Famotidine for PUD Transfer to CSU Attestations Medical Necessity Statement*: For resolving hyperkalemia and Afib with RVR Time Spent in Patient Care: Greater than 35 minutes Coding Level of Care Code Acute Building Energy Retrofit Technician for [facility] Fwd Diagnoses Acute hyperkalemia E87.5 Acute renal failure N17.9 Acute renal failure type: unspecified Atrial fibrillation I48.91 Anemia D64.9 Diabetes mellitus E11.9 Hypertension I10 Dementia F03.90
[2019-08-03 03:49] LABS: Basophils # 0.1 10^3/uL (0.0-0.1); Basophils % 0.5 %; Eosinophils # 0.3 10^3/uL (0.0-0.8); Eosinophils % 3.5 %; Hematocrit 26.7 % (42.0-52.0); Hemoglobin 8.5 g/dL (11.7-16.6); Lymphocytes # 1.7 10^3/uL (0.8-4.8); Lymphocytes % 18.4 %; Mean Corpuscular HGB Conc 31.8 g/dL (30.0-36.0); Mean Corpuscular Volume 84.8 fL (80-94); Mean Platelet Volume 9.8 fL (7.4-10.4); Monocytes % 11.3 %; Neutrophils % 65.1 %; Nucleated Red Blood Cells % 0.2 %; Platelet Count 223 10^3/cmm (130-400); Red Blood Count 3.15 10^6/uL (4.1-5.3); Red Cell Distribution Width 15.2 % (12.1-15.1); White Blood Count 9.2 10^3/uL (4.0-10.0)
[2019-08-03 04:00] VITALS: BP 158/80; PULSE 66; RESP 25; TEMP 36.8; O2SAT 97
[2019-08-03 04:05] LABS: Alanine Aminotransferase 17 U/L (0-41); Alkaline Phosphatase 125 IU/L (40-130); Aspartate Amino Transferase 19 U/L (0-40); Blood Urea Nitrogen 28 mg/dL (8-23); Calcium 9.1 mg/Dl (8.8-10.2); Carbon Dioxide 19 mmol/L (22-29); Chloride 108 mmol/L (98-107); Globulin 3.5 g/dL (1.3-4.6); Glucose 159 mg/dL (74-106); Sodium 139 mmol/L (136-145); Total Bilirubin 0.2 mg/dL (0.15-1.2); Total Protein 6.5 g/dL (6.6-8.7)
[2019-08-03 06:38] LABS: Glucose Point of Care 135 mg/dL (70-110)
[2019-08-03 07:09] LABS: Glucose Point of Care 160 mg/dL (70-110)
[2019-08-03 07:11] VITALS: BP 147/77; PULSE 69; RESP 18; TEMP 36.6; O2SAT 98
[2019-08-03] MEDS: cyanocobalamin 1,000 mcg Tablet 1000 MCG PO (09:15)
[2019-08-03] MEDS: gabapentin 400 mg Capsule PO (09:15)
[2019-08-03] MEDS: atorvastatin 40 mg Tablet 20 MG PO (09:15)
[2019-08-03] MEDS: metroNIDAZOLE 500 MG Tablet PO (09:15)
[2019-08-03] MEDS: folic acid 1 mg Tablet PO (09:15)
[2019-08-03] MEDS: amlodipine 5 mg Tablet PO (09:15)
[2019-08-03] MEDS: aspirin 81 mg EC Tablet PO (09:15)
[2019-08-03] MEDS: metoprolol tartrate 50 mg Tablet 75 MG PO (09:15)
--- NOTE | 2019-08-03 09:33 | P.DS_ITS ---
Discharge Providers Date of Admission: 07/30/19 18:30 Date of Discharge: 08/03/19 Attending Provider at Admission: Tamara Candelaria MD Attending Provider at Discharge: Emmanuel Graves MD Consults: Telemetry nephrology Surgery?Dr. Byrne Primary Care Provider: Grover Brooks Diagnoses at Discharge Discharge Diagnosis (1) Acute hyperkalemia: Status: Acute (2) Acute renal failure: Status: Acute Qualifiers: Acute renal failure type: unspecified Qualified Code(s): N17.9 - Acute kidney failure, unspecified (3) Atrial fibrillation: Status: Acute (4) Anemia: Status: Acute (5) Diabetes mellitus: Status: Acute (6) Hypertension: Status: Acute (7) Dementia: Status: Acute Reason for Visit Reason for Visit: Reason For Visit: hyperkalemia,JED Hospital Course Discharge Summary: Gagan Gandhi is a 73 year old male with a past medical history of A. fib, not on anticoagulation due to GI bleeding, dementia, diabetes mellitus, dyslipidemia, GI bleeding, hypertension, ventricular tachycardia history last noted in 2018 for which she was advised to undergo an angiogram but elected not to proceed with any further testing. He presents to the ER with chief complaint of sudden onset lower extremity weakness in bilateral lower extremities. He was noted to have an elevated white blood cell count of 15,000, JED with cr 3.8 (BL ~1.2), K of 9.4, repeated at 9 and HAGMA. He underwent undergo urgent HD in the ICU after moving to OR for catheter placement. EKG showed 1st degree AV block with bradycardia and deep T wave inversions, which were pre existing on prior EKGs. Review of medications shows he is on Lisinopril, metformin, glipizide which may be potentially contributing to metabolic abnormalities. No other obvious cause was found. After dialysis, his abnormalities corrected. Potassium normalized, metabolic acidosis resolved and creatinine trended down to 1.9. CT of the KUB did not show any acute obstructions. There was questionable pyelonephritis on CT and Right abdominal pain on presentation, therefore he received an empiric course of Ceftriaxone. He is being discharged now in stable to improved condition with [facility]. Placement at SNF was offered, however he declined this. Hospital course was also notable for A fib with RVR, which resolved after resuming his home dose of b blockers, He tranisently required cardizem infusion for one day. Physical Exam Narrative: EXAM NARRATIVE: General: No acute distress, AO x3, forgetful HEENT: PERRLA, pupils bilaterally equal and reactive Chest: Normal vesicular breath sounds, no added sounds, equal good air entry bilaterally CVS: S1-S2 regular, no murmurs, no tachycardia, no gallops, no rubs Abdomen: Soft, nontender, no organomegaly, bowel sounds present Neuro: No focal deficits, no facial deformity, AO x3, power 5/5 in all limbs Discharge Data Data Completed and Pending: Completed Studies During Hospitalization Category Date Time Status CT head wo con* 7 0450 Stat Cat Scan 07/30/19 12:[address] kidney stone 7 4176 Urgent Cat Scan 07/31/19 18:[address] lumbar spine w o con* [id number] Stat Cat Scan 07/30/19 12:24 Completed XR abdomen 1V* 74 018 Routine Exams 07/30/19 16:36 Completed XR chest 1V [id number] Routine Exams 07/30/19 18:47 Completed XR femur LT min 2 V* [id number] Stat Exams 07/30/19 12:14 Completed XR femur RT min 2 V* [id number] Stat Exams 07/30/19 12:14 Completed XR knee LT 1-2V 7 3560 Stat Exams 07/30/19 12:14 Completed XR knee RT 1-2V 7 3560 Stat Exams 07/30/19 12:14 Completed XR pelvis 1-2V* 7 2170 Stat Exams 07/30/19 12:14 Completed CV echo complete* [id number] Routine Ultrasound 07/31/19 08:54 Completed US abdomen limite d [id number] Stat Ultrasound 07/30/19 16:30 Completed Pending at discharge Category Date Time Status Anti-Neutrophil C utoplasmic AB Rout ine Lab 07/31/19 04:37 Received Anti-Nuclear Anti body Screen Routin e Lab 07/31/19 04:37 Received Blood Culture Sta t Lab 07/30/19 13:10 Results Immunochemical Fe jose OCB Routine Lab 08/01/19 10:32 Ordered Total Protein Amy ctrophoresis Routi ne Lab 07/31/19 04:37 Received Labs from last 24 hours 08/03/19 08/03/19 08/03/19 06:31 03:20 03:20 WBC 9.2 RBC 3.15 L Hgb 8.5 L Hct 26.7 L MCV 84.8 MCH 27.0 L MCHC 31.8 RDW 15.2 H Plt Count 223 MPV 9.8 Neut % (Auto) 65.1 Lymph % (Auto) 18.4 Hughes % (Auto) 11.3 Eos % (Auto) 3.5 Baso % (Auto) 0.5 Neut # (Auto) 6.0 Lymph # (Auto) 1.7 Hughes # (Auto) 1.0 H Eos # (Auto) 0.3 Baso # (Auto) 0.1 Nucleated RBC % (a uto) 0.2 Nucleated RBCs # 0.0 Sodium 139 Potassium 5.0 Chloride 108 H Carbon Dioxide 19 L Anion Gap 17.0 BUN 28 H Creatinine 1.9 H Glucose 159 H POC Glucose 135 Calcium 9.1 Total Bilirubin 0.2 AST 19 ALT 17 Alkaline Phosphata se 125 Total Protein 6.5 L Albumin 3.0 L Globulin 3.5 08/02/19 08/02/19 08/02/19 21:52 17:45 15:19 WBC RBC Hgb 9.0 L Hct 28.6 L MCV MCH MCHC RDW Plt Count MPV Neut % (Auto) Lymph % (Auto) Hughes % (Auto) Eos % (Auto) Baso % (Auto) Neut # (Auto) Lymph # (Auto) Hughes # (Auto) Eos # (Auto) Baso # (Auto) Nucleated RBC % (a uto) Nucleated RBCs # Sodium Potassium Chloride Carbon Dioxide Anion Gap BUN Creatinine Glucose POC Glucose 160 183 Calcium Total Bilirubin AST ALT Alkaline Phosphata se Total Protein Albumin Globulin 08/02/19 11:37 WBC RBC Hgb Hct MCV MCH MCHC RDW Plt Count MPV Neut % (Auto) Lymph % (Auto) Hughes % (Auto) Eos % (Auto) Baso % (Auto) Neut # (Auto) Lymph # (Auto) Hughes # (Auto) Eos # (Auto) Baso # (Auto) Nucleated RBC % (a uto) Nucleated RBCs # Sodium Potassium Chloride Carbon Dioxide Anion Gap BUN Creatinine Glucose POC Glucose 270 Calcium Total Bilirubin AST ALT Alkaline Phosphata se Total Protein Albumin Globulin Vitals: Last Vital Signs Temp 97.8 F 08/03/19 07:11 Pulse 69 08/03/19 07:11 Resp 18 08/03/19 07:11 BP 147/77 08/03/19 07:11 Pulse Ox 98 08/03/19 07:11 Discharge Plan Discharge Patient Disposition: Home Health Service Condition: Stable Prescriptions: New amlodipine 5 mg Tablet 10 mg PO DAILY Qty: 60 RF: 0 multivitamin with iron-mineral Tablet Extended Release 1 tab PO DAILY Qty: 30 RF: 0 glipizide 5 mg tablet 5 mg PO BID Qty: 60 RF: 0 Continued isosorbide mononitrate 60 mg tablet extended release 24 hr 60 mg PO QAM RF: 0 metoprolol tartrate 75 mg tablet 75 mg PO BID RF: 0 cholecalciferol (vitamin D3) 2,000 unit tablet 2,000 unit PO DAILY RF: 0 chlorpheniramine maleate [Allergy Relief(chlorpheniramn)] 4 mg tablet 4 mg PO Q6H RF: 0 gabapentin 400 mg capsule 400 mg PO DAILY RF: 0 aspirin [Adult Aspirin Regimen] 81 mg tablet,delayed release (DR/EC) 81 mg PO DAILY RF: 0 atorvastatin 10 mg tablet 10 mg PO DAILY RF: 0 omega-3 fatty acids [Fish Oil Concentrate] 1,000 mg capsule 1,000 mg PO BID RF: 0 colestipol 1 gram tablet 2 gm PO BID RF: 0 Discontinued magnesium L-lactate 84 mg tablet extended release 84 mg PO BID RF: 0 metformin 850 mg tablet 850 mg PO BID RF: 0 glipizide 10 mg tablet 10 mg PO BID RF: 0 lisinopril 40 mg tablet 40 mg PO DAILY RF: 0 Discharge Orders: Discharge Order (Routine); Ordered 08/03/19 Ordered By: Emmanuel Graves Other Ambulatory Orders: Basic Metabolic Panel (Routine) Timeframe: 2 Weeks Facility: [facility] - Location: Lab - Main Lab Ordered By: Emmanuel Graves Referrals: Grover Brooks [Primary Care Provider] - 2 weeks (You have an follow-up appointment at [facility] on FridayAugust 11 at 10:30a.m. You will have an BMP blood draw at this time. If, you have any questions or need to reschedule. Please call ) Discharge Diet: Cardiac and Diabetic Discharge Activity: Resume usual activity Patient Instructions: Glipizide (By mouth), Multivitamins with Minerals (By mouth), Amlodipine (By mouth), Atrial Fibrillation (DC), Chronic Kidney Disease (DC), Dementia (GEN), Diabetes Mellitus Type 1 in Adults (DC), Hyperkalemia (DC), Hypertension (DC), Anemia (DC) Discharge Date/Time: 08/03/19 13:10 Discharge Attestations Time Spent in Discharge Care*: greater than 30 min Quality Metrics Clinical Quality Measures During this hospital stay, did patient experience: None Coding Level of Care Code Acute Linen Room Supervisor for makayla Fwcorrie Diagnoses Acute hyperkalemia E87.5 Acute renal failure N17.9 Acute renal failure type: unspecified Atrial fibrillation I48.91 Anemia D64.9 Diabetes mellitus E11.9 Hypertension I10 Dementia F03.90
--- NOTE | 2019-08-03 09:48 | PC.NURSE ---
Patient refusing medications. Dr Graves enters room and explained to patient that he needs to take his medications in order to be evaluated to be safe for discharge, Patient argues with nurse that his medication do do anything for him because he feels great right now. Educated patient that he has been taking his medications for the last few days at the hospital and now feels better. patient encouraged to take medications. patient did take medications however was not happy at all.
[2019-08-03 11:01] VITALS: BP 143/84; PULSE 70; RESP 20; TEMP 36.6; O2SAT 96
[2019-08-03 11:27] LABS: Glucose Point of Care 225 mg/dL (70-110)
[2019-08-03 12:34] VITALS: BP 143/84; PULSE 70; RESP 20; TEMP 36.6; O2SAT 96
--- NOTE | 2019-08-03 13:08 | PC.NURSE ---
Upon entering room and getting patient, he stated OH No it you, are you the one I hate this nurse responded It's Regine your nurse. Patient Oh its you, you are the tolerable one, that one always asking me about home nurse stuff doesn't need to come back in here This nurse responded Your son is here now and the doctor has discharged you so you can g home now, Discharge instructions given to patient and verbalization of understanding noted. Patient assisted to Wheel chair and accompanied to private vehicle by staff, all belonging and discharge instructions in hands.
== END 2019-08-03 13:10 | disposition home health service (06) | DRG 683 ==
LOC: ER 14:03 → ICU 16:00 → ER 17:01 → OPS 17:09 → ICU 18:32 → CSU 08-02 22:51
PROVIDERS: Emergency Medicine; Internal Medicine Nephrology; Surgery; Admitting Provider Student in an Organized Health Care Education/Training Program; Emergency Provider Student in an Organized Health Care Education/Training Program; Family Provider Family Medicine; PCP Family Medicine; Visit Provider Student in an Organized Health Care Education/Training Program
DX: N17.9 Acute kidney failure, unspecified (principal); E87.2 Acidosis; E87.5 Hyperkalemia; I48.91 Unspecified atrial fibrillation; F03.90 Unspecified dementia, unspecified severity, without behavioral disturbance, psychotic disturbance, mood disturbance, and anxiety; E78.5 Hyperlipidemia, unspecified; Z87.891 Personal history of nicotine dependence; Z79.02 Long term (current) use of antithrombotics/antiplatelets; Z79.82 Long term (current) use of aspirin; Z79.84 Long term (current) use of oral hypoglycemic drugs; Z79.899 Other long term (current) drug therapy; I44.0 Atrioventricular block, first degree; I12.9 Hypertensive chronic kidney disease with stage 1 through stage 4 chronic kidney disease, or unspecified chronic kidney disease; N18.9 Chronic kidney disease, unspecified; D64.9 Anemia, unspecified; G20 Parkinson's disease; E11.22 Type 2 diabetes mellitus with diabetic chronic kidney disease
CPT/HCPCS: 12345; 36415; 36416; 36430; 51702; 70450; 71045; 72131; 72170; 73552; 73560; 74018; 74176; 76000; 76705; 77001; 80053; 80061; 81003; 82550; 82607; 82746; 82962; 83036; 83516; 83540; 83550; 83605; 83735; 84100; 84132; 84155; 84165; 84484; 85014; 85018; 85025; 85610; 86038; 86850; 86900; 87040; 93005; 93306; 94640; 96361; 96365; 96366; 96372; 96374; 96375; 97110; 97161; 97165; 97530; 97535; 99282; A9270; C1752; J0610; J0690; J0696; J1644; J1756; J1815; J2001; J2250; J3010; J3420; J3490; J7030; J7611; J7799; P9016; Q3014; Q4081

== ENCOUNTER 2020-02-11 09:01 | Inpatient (IN) | payer OTHER, MEDICARE, SELFPAY ==
[2020-02-11] VITALS (11 sets, daily range): BP systolic 108–158; BP diastolic 86–97; PULSE 93–150; RESP 16–29; TEMP 36.5–36.8; O2SAT 92–96; BMI 29.1
--- NOTE | 2020-02-11 09:39 | XRR_ITS ---
PROCEDURE INFORMATION: Exam: XR Chest, 1 View Exam date and time: 02/11/2020 9:54 AM Age: 74 years old Clinical indication: Cough and dyspnea; Additional info: Dyspnea/cough x 1 month TECHNIQUE: Imaging protocol: XR of the chest Views: 1 view. COMPARISON: CR XR chest 1V [id number] 07/30/2019 7:49 PM FINDINGS: Lungs: Lungs are well aerated without a focal area of consolidation. Pleural space: Unremarkable. No pleural effusion. No pneumothorax. Heart/Mediastinum: The cardiac silhouette appears enlarged, some of which is magnification related to the AP projection. Bones/joints: Unremarkable. XR/XR chest 1V portable [id number] IMPRESSION: Lungs are well aerated without a focal area of consolidation.
[2020-02-11 09:53] LABS: Basophils # 0.1 10^3/uL (0.0-0.1); Basophils % 0.7 %; Eosinophils # 0.1 10^3/uL (0.0-0.8); Eosinophils % 1.1 %; Hematocrit 27.3 % (42.0-52.0); Hemoglobin 8.2 g/dL (11.7-16.6); Lymphocytes # 1.5 10^3/uL (0.8-4.8); Lymphocytes % 17.8 %; Mean Corpuscular Hemoglobin 26.3 pg (28.0-34.0); Mean Corpuscular Volume 87.5 fL (80-94); Mean Platelet Volume 10.4 fL (7.4-10.4); Monocytes # 0.9 10^3/uL (0.2-0.9); Neutrophils # 5.66 10^3/uL (1.8-7.7); Neutrophils % 68.6 %; Nucleated Red Blood Cells % 0 %; Platelet Count 223 10^3/cmm (130-400); Red Blood Count 3.12 10^6/uL (4.1-5.3); Red Cell Distribution Width 14.6 % (12.1-15.1); White Blood Count 8.3 10^3/uL (4.0-10.0)
--- NOTE | 2020-02-11 10:09 | W.ED.SOB ---
HPI - SOB/Dyspnea General: Chief Complaint: Shortness of Breath/Dyspnea Stated Complaint: sob/cough/weakness Time Seen by Provider: 02/11/20 09:05 History of Present Illness: HPI Narrative: 74-year-old male presents emergency room clinic with shortness of breath weakness for the last month generally not been improving he was supposed to see his doctor at the [facility] he has had a cough is been nonproductive he has had significant orthopnea. He denies fever cough has not produced any hemoptysis he states that gets worse when he lays down to where she has coughing fits he denies any episodes of chest pain. He usually takes metoprolol and sotalol for rate control MD elicited complaint: shortness of breath Pertinent past history: COPD and other (Atrial fibrillation) Onset (ago): week(s) Context: occurred during exertion Timing: intermittent Severity: moderate Exacerbating factors: lying flat, exertion and coughing Relieving factors: oxygen and rest Known history of: congestive heart failure and other (Atrial fibrillation) Associated symptoms: Reports cough and orthopnea; Deny fever(s), nausea, rash, syncope or vomiting Review of Systems Const: Denies: fever(s), chills, body aches, change in appetite, fatigue or malaise ENMT: Denies: throat pain, ear or mastoid pain, nasal discharge or nasal congestion Card: Reports: orthopnea; Denies: syncope Resp: Denies: dyspnea, productive cough or non-productive cough GI: Denies: nausea or vomiting : Denies: flank pain, dysuria, urinary frequency or urinary urgency Skin/Breast: Denies: rash or pruritus PFSH ED PFSH: Medical History Acute on chronic diastolic (congestive) heart failure Anemia Atrial fibrillation Benign essential hypertension with target blood pressure below 140/90 Chronic anemia Chronic kidney disease Dementia Diabetes mellitus Dyslipidemia Essential hypertension GI bleeding Hypertension Lewy body dementia Mixed hyperlipidemia Neuropathy Ventricular tachycardia Surgical History H/O hernia repair S/P rotator cuff repair Family History Mother Sudden cardiac Other Cancer Diabetes Social History Smoking and tobacco status: former smoker Alcohol intake: never Marital status: / History of recent travel: No Physical Exam Const: COMMON NORMALS: patient oriented x3 and alert GENERAL APPEARANCE: cooperative, comfortable, well kempt and well developed NUTRITIONAL APPEARANCE: obese ORIENTATION/CONSCIOUSNESS: Yes awake, Yes oriented to person and Yes oriented to place HENMT: COMMON NORMALS: normocephalic, atraumatic, EAC's normal, TM's normal bilaterally, Normal external nose present, moist oral mucous membranes and oropharynx normal HEAD & SCALP: normocephalic and atraumatic NOSE: Normal external nose present EXTERNAL AUDITORY CANAL: EAC's normal TYMPANIC MEMBRANE: TM's normal bilaterally MOUTH: Normal oral and palatal mucosa present, lip normal and tongue normal THROAT: posterior oropharynx normal and tonsils normal Eye: COMMON NORMALS: Equal, round and reactive pupils present, EOMs intact bilaterally, conjunctivae normal and no scleral icterus CONJUNCTIVA: Yes conjunctivae normal PUPIL: Yes Equal, round and reactive pupils present Neck/C-Spine: COMMON NORMALS: full ROM, no lymphadenopathy, supple, no meningeal signs and Thyroid normal THYROID: Thyroid normal and asymmetrical Lymph: LYMPHATIC: no lymphadenopathy noted Resp: AUSCULTATION: crackles (base) Laterality: left Cardio: RATE: tachycardic RHYTHM: abnormal rhythm irregularly irregular HEART SOUNDS: no murmurs GI: COMMON NORMALS: Normal to inspection, nondistended, normoactive bowel sounds present, Soft to palpation and No hepatosplenomegaly present PALPATION: Yes Soft to palpation and Yes No hepatosplenomegaly present : COMMON NORMALS: Yes no CVA tenderness BLADDER/KIDNEY EXAM: Yes no CVA tenderness Back/Pelvis: COMMON NORMALS: no CVA tenderness LUMBAR SPINE/LOWER BACK: Yes normal to inspection Extremity: COMMON NORMALS: no clubbing, cyanosis or edema, no calf tenderness and no pedal edema Neuro: COMMON NORMALS: patient oriented x3 SENSORIUM/ORIENTATION: Yes alert, Yes oriented to person and Yes oriented to place MENINGEAL SIGNS: Yes no meningeal signs Psych: APPEARANCE: Yes well kempt Skin: COMMON NORMALS: no rashes or lesions noted and turgor normal GENERAL SKIN EXAM: no rashes or lesions noted and turgor normal Course Vital Signs: Vital signs: Vital Signs Temperature 97.6 F 02/12/20 03:58 Pulse Rate 110 H 02/12/20 05:00 Respiratory Rate 18 02/12/20 05:00 Blood Pressure 136/94 02/12/20 03:58 Pulse Oximetry 96 02/12/20 05:00 MDM - SOB/Dyspnea MDM Narrative: Medical decision making narrative: Cedric alegre with RVR we initially made an effort to control his rate with Cardizem he not respond well with this we stopped Cardizem give him IV Lopressor and a dose of oral Lopressor. He is also on sotalol. Discussed Dr. Arnold will admit for Cedric alegre with RVR developing congestive heart failure she will accept the patient and has seen him in the emergency room and has written orders. Interestingly he also has some anemia this will need to be monitored. Lab Data: Labs: Lab Results 02/11/20 02/11/20 02/11/20 Range/Units 09:25 09:25 09:25 WBC 8.3 (4.0-10.0) 10^3/ uL RBC 3.12 L (4.1-5.3) 10^6/u L Hgb 8.2 L (11.7-16.6) g/dL Hct 27.3 L (42.0-52.0) % MCV 87.5 (80-94) fL MCH 26.3 L (28.0-34.0) pg MCHC 30.0 (30.0-36.0) g/dL RDW 14.6 (12.1-15.1) % Plt Count 223 (130-400) 10^3/c mm MPV 10.4 (7.4-10.4) fL Neut % (Auto) 68.6 % Lymph % (Auto) 17.8 % [place] % (Auto) 11.0 % Eos % (Auto) 1.1 % Baso % (Auto) 0.7 % Neut # (Auto) 5.66 (1.8-7.7) 10^3/u L Lymph # (Auto) 1.5 (0.8-4.8) 10^3/u L [place] # (Auto) 0.9 (0.2-0.9) 10^3/u L Eos # (Auto) 0.1 (0.0-0.8) 10^3/u L Baso # (Auto) 0.1 (0.0-0.1) 10^3/u L Nucleated RBC % (a uto) 0 % Nucleated RBCs # 0.0 /100WBC Sodium 134 L (136-145) mmol/L Potassium 4.8 (3.5-5.1) mmol/L Chloride 102 (98-107) mmol/L Carbon Dioxide 21 L (22-29) mmol/L Anion Gap 15.8 (5-19) BUN 28 H (8-23) mg/dL Creatinine 1.6 H (0.7-1.2) mg/dL GFR Calculation Not Reportable Glucose 369 H (65-115) mg/dL Estimat Average Gl ucose Hemoglobin A1c (4.0-6.0) % Calculated Osmolal ity 290 (285-295) mOsm/k g Calcium 8.7 (8.5-10.5) mg/dL Phosphorus (2.5-4.5) mg/dL Magnesium (1.7-2.3) mg/dL Iron (59-158) ug/dL TIBC mcg/dl % Saturation (20-50) % Unsat Iron Binding (112-347) ug/dL Total Bilirubin 0.2 (0.15-1.2) mg/dL AST 33 (0-40) U/L ALT 50 H (0-41) U/L Alkaline Phosphata se 121 (40-130) IU/L Troponin T Baselin e 50 H (0-15) ng/L Troponin T 120 Min [place] (0-15) ng/L Delta Troponin T (0-10) ABS# NT-Pro-B Natriuret Pep 2061 H (0-450) pg/mL Total Protein 6.7 (6.6-8.7) g/dL Albumin 3.6 (3.5-5.2) g/dL Globulin 3.1 (1.3-4.6) g/dL TSH (0.27-4.20) uIU/ mL Free T4 (0.82-1.77) ng/d L 02/11/20 02/11/20 02/11/20 Range/Units 09:25 09:25 09:25 WBC (4.0-10.0) 10^3/ uL RBC (4.1-5.3) 10^6/u L Hgb (11.7-16.6) g/dL Hct (42.0-52.0) % MCV (80-94) fL MCH (28.0-34.0) pg MCHC (30.0-36.0) g/dL RDW (12.1-15.1) % Plt Count (130-400) 10^3/c mm MPV (7.4-10.4) fL Neut % (Auto) % Lymph % (Auto) % [place] % (Auto) % Eos % (Auto) % Baso % (Auto) % Neut # (Auto) (1.8-7.7) 10^3/u L Lymph # (Auto) (0.8-4.8) 10^3/u L [place] # (Auto) (0.2-0.9) 10^3/u L Eos # (Auto) (0.0-0.8) 10^3/u L Baso # (Auto) (0.0-0.1) 10^3/u L Nucleated RBC % (a uto) % Nucleated RBCs # /100WBC Sodium (136-145) mmol/L Potassium (3.5-5.1) mmol/L Chloride (98-107) mmol/L Carbon Dioxide (22-29) mmol/L Anion Gap (5-19) BUN (8-23) mg/dL Creatinine (0.7-1.2) mg/dL GFR Calculation Glucose (65-115) mg/dL Estimat Average Gl ucose 280 Hemoglobin A1c 11.4 H (4.0-6.0) % Calculated Osmolal ity (285-295) mOsm/k g Calcium (8.5-10.5) mg/dL Phosphorus (2.5-4.5) mg/dL Magnesium (1.7-2.3) mg/dL Iron 16 L (59-158) ug/dL TIBC 318 mcg/dl % Saturation 5.0 L (20-50) % Unsat Iron Binding 302 (112-347) ug/dL Total Bilirubin (0.15-1.2) mg/dL AST (0-40) U/L ALT (0-41) U/L Alkaline Phosphata se (40-130) IU/L Troponin T Baselin e (0-15) ng/L Troponin T 120 Min [place] (0-15) ng/L Delta Troponin T (0-10) ABS# NT-Pro-B Natriuret Pep (0-450) pg/mL Total Protein (6.6-8.7) g/dL Albumin (3.5-5.2) g/dL Globulin (1.3-4.6) g/dL TSH (0.27-4.20) uIU/ mL Free T4 1.01 (0.82-1.77) ng/d L 02/11/20 02/11/20 Range/Units 11:25 11:25 WBC (4.0-10.0) 10^3/ uL RBC (4.1-5.3) 10^6/u L Hgb (11.7-16.6) g/dL Hct (42.0-52.0) % MCV (80-94) fL MCH (28.0-34.0) pg MCHC (30.0-36.0) g/dL RDW (12.1-15.1) % Plt Count (130-400) 10^3/c mm MPV (7.4-10.4) fL Neut % (Auto) % Lymph % (Auto) % [place] % (Auto) % Eos % (Auto) % Baso % (Auto) % Neut # (Auto) (1.8-7.7) 10^3/u L Lymph # (Auto) (0.8-4.8) 10^3/u L [place] # (Auto) (0.2-0.9) 10^3/u L Eos # (Auto) (0.0-0.8) 10^3/u L Baso # (Auto) (0.0-0.1) 10^3/u L Nucleated RBC % (a uto) % Nucleated RBCs # /100WBC Sodium (136-145) mmol/L Potassium (3.5-5.1) mmol/L Chloride (98-107) mmol/L Carbon Dioxide (22-29) mmol/L Anion Gap (5-19) BUN (8-23) mg/dL Creatinine (0.7-1.2) mg/dL GFR Calculation Glucose (65-115) mg/dL Estimat Average Gl ucose Hemoglobin A1c (4.0-6.0) % Calculated Osmolal ity (285-295) mOsm/k g Calcium (8.5-10.5) mg/dL Phosphorus 3.2 (2.5-4.5) mg/dL Magnesium 1.8 (1.7-2.3) mg/dL Iron (59-158) ug/dL TIBC mcg/dl % Saturation (20-50) % Unsat Iron Binding (112-347) ug/dL Total Bilirubin (0.15-1.2) mg/dL AST (0-40) U/L ALT (0-41) U/L Alkaline Phosphata se (40-130) IU/L Troponin T Baselin e (0-15) ng/L Troponin T 120 Min [place] 49.16 H (0-15) ng/L Delta Troponin T -0.84 L (0-10) ABS# NT-Pro-B Natriuret Pep (0-450) pg/mL Total Protein (6.6-8.7) g/dL Albumin (3.5-5.2) g/dL Globulin (1.3-4.6) g/dL TSH 5.74 H (0.27-4.20) uIU/ mL Free T4 (0.82-1.77) ng/d L Discharge Plan Discharge Patient Disposition: Admitted As Inpatient Admit Provider: Keesha Arnold Clinical Impression: Atrial fibrillation with rapid ventricular response, Congestive heart failure, Anemia Condition: Stable Interventions: ED Discharge Assessment Last Done: 02/11/20 13:00 ED Charges Last Done: 02/11/20 13:00 Discharge Date/Time: 02/11/20 13:15 Coding Level of Care Code ED Farm Boss for Chg Fwd Exam Comprehensive
[2020-02-11 10:11] LABS: Troponin(5th) Baseline 50 ng/L (0-15)
[2020-02-11 10:18] LABS: Alanine Aminotransferase 50 U/L (0-41); Albumin Level 3.6 g/dL (3.5-5.2); Alkaline Phosphatase 121 IU/L (40-130); Anion Gap 15.8 (5-19); Aspartate Amino Transferase 33 U/L (0-40); Blood Urea Nitrogen 28 mg/dL (8-23); Calcium 8.7 mg/dL (8.5-10.5); Carbon Dioxide 21 mmol/L (22-29); Chloride 102 mmol/L (98-107); Creatinine Clr Calc Pharmacy 38.1398; Globulin 3.1 g/dL (1.3-4.6); Glucose 369 mg/dL (65-115); NT Pro B Type Natriuretic Pept 2061 pg/mL (0-450); Osmolality Calculated 290 mOsm/kg (285-295); Potassium 4.8 mmol/L (3.5-5.1); Sodium 134 mmol/L (136-145); Total Bilirubin 0.2 mg/dL (0.15-1.2); Total Protein 6.7 g/dL (6.6-8.7)
[2020-02-11] MEDS: insulin regular-human 100 units/1 mL 5 UNIT IVP (11:29)
--- NOTE | 2020-02-11 11:39 | ECG_ITS ---
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 Measurements Intervals [place] Rate: 113 P: [place]: -1 QRS: -31 QRSD: 88 T: 167 QT: 313 QTc: 430 Interpretive Statements ATRIAL FIBRILLATION WITH RAPID VENTRICULAR RESPONSE WITH ABERRANT CONDUCTION OR VENTRICULAR PREMATURE COMPLEXES LEFT AXIS DEVIATION [QRS AXIS < -30] MINIMAL VOLTAGE CRITERIA FOR LVH, CONSIDER NORMAL VARIANT [MEETS CRITERIA IN ONE OF: R(aVL), S(V1), R(V5), R(V5/V6)+S(V1)] ST DEVIATION AND MODERATE T-WAVE ABNORMALITY, CONSIDER ANTEROLATERAL ISCHEMIA [-0.1+ mV T WAVE IN V3-V6] Compared to ECG 02/11/2020 09:46:58 Ventricular premature complex(es) now present Aberrant conduction of supraventricular beat(s) now present T-wave abnormality still present Possible ischemia still present Electronically Signed On 02-11-2020 16:16:54 CDT by Gibran Garzon M.D. [id number]
[2020-02-11 11:47] LABS: Troponin 5 2HR 49.16 ng/L (0-15)
[2020-02-11 11:48] LABS: Troponin 5 2HR Delta -0.84 ABS# (0-10)
[2020-02-11] MEDS: FUROsemide 10 mg/mL SDV 4mL 40 MG IVP ×2 (12:13→18:58)
[2020-02-11] MEDS: metoprolol tartrate 50 mg Tablet 75 MG PO (12:13)
[2020-02-11] MEDS: metoprolol tartrate 1 mg/1 mL SDV 5 mL 5 MG IV (12:13)
--- NOTE | 2020-02-11 12:15 | P.HP_ITS ---
Providers/Chief Complaint Admitting Physician: Keesha Arnold DO Primary Care Provider: Grover Brooks Chief Complaint: sob/cough/weakness History of Present Illness Gagan Gandhi is a 74 year old male with a past medical history of atrial fibrillation, hypertension, hyperlipidemia, diabetes and chronic kidney disease that presented to the emergency department for increasing fatigue. He reported that he has had increasing fatigue and increasing shortness of breath over the past several weeks. He reported that his been continued to worsen to the point where he can no longer manage his symptoms at home. He came in requesting further evaluation and treatment. He denies any fevers or chills. Reports that he has had increased orthopnea and increased cough with laying flat. Denies any sputum production, cough is dry. Denies any sick contacts, no exposure to anyo ne under investigation are positive for COVID-19, home is only been in his home. Patient reports that he was told by cardiology, Dr. Orlando, that he required referral to [place] for further evaluation by cardiology in the past however he refused, he is agreeable to doing this at this time. Patient was seen and evaluated in the emergency department noted to have concern for atrial fibrillation with RVR and admitted for further evaluation and treatment. Initially started on a Cardizem drip then given 5 of IV metoprolol Review of Systems 2 Const: Reports: fatigue and malaise; Denies: fever(s) or chills Eyes: Denies: change in vision ENMT: Denies: nasal congestion Card: Reports: edema; Denies: chest pain or palpitations Resp: Reports: dyspnea; Denies: productive cough or hemoptysis GI: Denies: abdominal pain, nausea, vomiting, diarrhea, constipation, hematochezia or melena : Denies: dysuria or hematuria Musc: Denies: extremity pain or muscle cramps Skin/Breast: Denies: rash or new lesions Neuro: Reports: headache(s) (Chronic, unchanged); Denies: dizziness Psych: Denies: anxiety or depression Endo: Denies: polyuria or hot flashes Raz/Lymph: Denies: easy bruising or easy bleeding Medications/Allergies Home Medications Medication Instructions Recorded Confirmed Last Taken Type aspirin 81 mg tablet,delayed 81 mg PO DAILY tab 07/25/19 02/11/20 02/11/20 History release atorvastatin 10 mg tablet 10 mg PO DAILY tab 07/25/19 02/11/20 02/10/20 History chlorpheniramine maleate 4 mg 4 mg PO Q6H 07/25/19 02/11/20 Unknown History tablet cholecalciferol (vitamin D3) 50 1,000 unit PO DAILY tab 07/25/19 02/11/20 02/10/20 History mcg (2,000 unit) tablet colestipol 1 gram tablet 2 gm PO BID 07/25/19 02/11/20 02/11/20 History gabapentin 400 mg capsule 400 mg PO DAILY cap 07/25/19 02/11/20 02/10/20 History isosorbide mononitrate 60 mg 60 mg PO QAM 07/25/19 02/11/20 02/10/20 History tablet,extended release 24 hr metoprolol tartrate 75 mg tablet 75 mg PO BID 07/25/19 02/11/20 02/11/20 History omega-3 fatty acids 1,000 mg 1,000 mg PO BID 07/25/19 02/11/20 02/11/20 History capsule amlodipine 10 mg PO DAILY #60 tab 08/03/19 02/11/20 02/10/20 Rx glipizide 5 mg PO BID #60 tab 08/03/19 02/11/20 02/11/20 Rx multivitamin with iron-mineral 1 tab PO DAILY #30 tab 08/03/19 02/11/20 02/11/20 Rx sotalol 80 mg PO DAILY 02/11/20 02/11/20 02/10/20 History Allergies Allergy/AdvReac Type Severity Reaction Status Date / Time lisinopril Allergy Unknown Verified 08/01/19 08:55 PFSH Acute PFSH: Medical History (Updated 02/11/20 @ 14:55 by Jared Orlando MD) Acute on chronic diastolic (congestive) heart failure Anemia Atrial fibrillation Benign essential hypertension with target blood pressure below 140/90 Dementia Diabetes mellitus Dyslipidemia Essential hypertension GI bleeding Hypertension Lewy body dementia Mixed hyperlipidemia Neuropathy Ventricular tachycardia Surgical History H/O hernia repair S/P rotator cuff repair Family History Mother Sudden cardiac Other Cancer Diabetes Social History Smoking and tobacco status: former smoker Alcohol intake: never Marital status: / History of recent travel: No Vitals/I&O/Wt Last Vital Signs Temp 98.0 F 02/11/20 09:07 Pulse 120 H 02/11/20 11:43 Resp 20 H 02/11/20 11:43 BP 128/95 02/11/20 11:43 Pulse Ox 95 02/11/20 11:43 02/10/20 02/11/20 02/11/20 22:59 06:59 14:59 Intake Total 12.75 / 12.75 Balance 12.75 / 12.75 Weight last 48 hrs Weight 79.379 kg Physical Exam Const: COMMON NORMALS: patient oriented x3 and alert GENERAL APPEARANCE: cooperative ORIENTATION/CONSCIOUSNESS: Yes awake, Yes oriented to person, Yes oriented to place and Yes oriented to time HENMT: COMMON NORMALS: normocephalic and atraumatic HEAD & SCALP: normocephalic and atraumatic Eye: COMMON NORMALS: Equal, round and reactive pupils present PUPIL: Yes Equal, round and reactive pupils present Neck/C-Spine: COMMON NORMALS: supple GENERAL: Yes normal visual inspection Resp: AUSCULTATION: no rhonchi and no wheezes OTHER: Respirations even and unlabored, faint crackles in the bases bilaterally Cardio: OTHER: Irregularly irregular, tachycardic GI: COMMON NORMALS: Soft to palpation and non-tender INSPECTION: No abdominal distension AUSCULTATION: Yes normoactive bowel sounds PALPATION: Yes Soft to palpation Extremity: COMMON NORMALS: no calf tenderness NARRATIVE EXTREMITY EXAM: 2+ pitting edema in the lower extremities bilaterally Neuro: COMMON NORMALS: patient oriented x3, CN's II-XII intact bilaterally, moves all extremities and no focal motor deficits SENSORIUM/ORIENTATION: Yes alert, Yes oriented to person, Yes oriented to place and Yes oriented to time SPEECH: speech normal Psych: COMMON NORMALS: mental status grossly normal and cooperative Skin: COMMON NORMALS: no rashes or lesions noted GENERAL SKIN EXAM: no rashes or lesions noted Data : 02/11/20 09:25 02/11/20 09:25 A&P Assessment and plan (1) Atrial fibrillation with rapid ventricular response: Admit to cardiac stepdown Telemetry Serial EKG and troponin Cardiology consultation, Dr. Orlando. Patient has followed with Dr. Orlando in the inpatient setting in the past in November 2018, history of atrial fibrillation and also ventricular tachycardia in the past. Restart patient's home metoprolol 75 mg twice daily. Sotalol is reported as a home medication, will follow up with cardiology recommendations on this medication Patient is not on any anticoagulation due to chronic anemia and history of GI bleed Status: Acute (2) Congestive heart failure: Patient appears to be acutely fluid overloaded, IV Lasix x1, strict intake and output as well as daily weights Echocardiogram ordered when heart rate less than 100 bpm Status: Acute (3) Anemia: Check further iron studies, no evidence of any active bleeding Hold off on full dose anticoagulation despite atrial fibrillation due to anemia Status: Acute (4) Dyslipidemia: Continue statin Status: Acute (5) Hypertension: Continue amlodipine and metoprolol Status: Acute (6) Dementia: Appears to be at baseline Status: Acute (7) Diabetes mellitus: hold home glipizide Place on low dose sliding scale insulin as needed Status: Acute Additional A&P Information Fatigue: Likely secondary to above, will check TSH and other electrolytes. DVT prophylaxis: Prophylactic Lovenox, not on treatment dose despite atrial fibrillation due to anemia and history of GI bleed Diet: Cardiac, carbohydrate consistent CODE STATUS: Full code Attestations Medical Necessity Statement*: Inpatient admission due to afib and CHF, expected stay greater than 2 midnights Coding Level of Care Code Acute Type [employer]ment Assembler for [facility] Fwd Exam Comprehensive Diagnoses Atrial fibrillation with rapid ventricular response I48.91 Congestive heart failure I50.9 Anemia D64.9 Dyslipidemia E78.5 Hypertension I10 Dementia F03.90 Diabetes mellitus E11.9
--- NOTE | 2020-02-11 12:36 | PC.NURSE ---
EKG done at 1227 and shown to ER doctor
[2020-02-11 13:04] LABS: Magnesium 1.8 mg/dL (1.7-2.3); Phosphorus 3.2 mg/dL (2.5-4.5); Thyroid Stimulating Hormone 5.74 uIU/mL (0.27-4.20)
[2020-02-11 13:17] LABS: Estmated Average Glucose 280; Hemoglobin A1C 11.4 % (4.0-6.0)
--- NOTE | 2020-02-11 13:39 | USCV_ITS ---
Gagan Gandhi Age: 74 Gender: M : 1945 Exam Date: 02/11/2020 15:03 Ordering Phys: Keesha Arnold DO Technologist: Edwin Nicholson [place] [facility] [place]: BP: 134 / 63 HR: 118 Rhythm: Sinus Technical Quality: Adequate MEASUREMENTS (Male / Female) Normal Values 2D ECHO LV Diastolic Diameter PLAX 3.5 cm 4.2 - 5.9 / 3.9 - 5.3 cm LV Systolic Diameter PLAX 2.5 cm IVS Diastolic Thickness 1.3 cm 0.6 - 1.0 / 0.6 - 0.9 cm IVS Systolic Thickness 1.4 cm LVPW Diastolic Thickness 1.1 cm 0.6 - 1.0 / 0.6 - 0.9 cm LVPW Systolic Thickness 1.4 cm LVOT Diameter 2.0 cm LV Ejection Fraction 2D Teich 56.4 % LV Ejection Fraction MOD 2C 33.4 % LV Ejection Fraction 2C AL 28.7 % LA Diameter 3.9 cm Aorta at Sinotubular Diameter 0.9 cm M-MODE LV Diastolic Diameter MM 3.8 cm 4.2 - 5.9 / 3.9 - 5.3 cm LV Systolic Diameter MM 2.6 cm LV Ejection Fraction MM Teich 62.5 % IVS Diastolic Thickness MM 1.5 cm 0.6 - 1.0 / 0.6 - 0.9 cm IVS Systolic Thickness MM 1.5 cm LVPW Diastolic Thickness MM 1.3 cm 0.6 - 1.0 / 0.6 - 0.9 cm LVPW Systolic Thickness MM 1.9 cm RV Diastolic Diameter MM 1.9 cm Aortic Annulus Diameter 4.2 cm LA Ao Ratio MM 0.9 MV E Point Septal Separation 0.6 cm DOPPLER AV Peak Velocity 115.0 cm/s LVOT Peak Velocity 88.0 cm/s AV Area Cont Eq vti 3.1 cm squared AV Area Cont Eq pk 2.5 cm squared MV Area PHT 5.0 cm squared Mitral E to A Ratio 2.2 MV E' Velocity 87.0 cm/s TR Peak Velocity 260.0 cm/s TR Peak Gradient 27.0 mmHg TV Peak E Velocity 113.0 cm/s Right Atrial Pressure 3.0 mmHg Pulmonary Artery Systolic Pressu 30.0 mmHg PV Peak Velocity 108.0 cm/s FINDINGS Left Ventricle Moderate concentric left ventricle hypertrophy. Diffuse hypokinesia left ventricle. Ejection fraction around 45 to 50%. Because of the tachyarrhythmia, the segmental wall motion analysis and ejection fraction estimation could be misleading. Right Ventricle Normal right ventricular size and systolic function. Right Atrium Normal right atrial size. Left Atrium Mildly increased left atrial size. Mitral Valve Thickened mitral valve. Aortic Valve Thickened aortic valve. Tricuspid Valve Tricuspid valve not well visualized. Pulmonic Valve Pulmonic valve not well visualized. Pericardium No pericardial effusion. Aorta Mildly dilated aortic root, measuring 4.3 cm, at the level of the sinuses CONCLUSIONS Moderate concentric left ventricle hypertrophy. Diffuse hypokinesia left ventricle. Ejection fraction around 45 to 50%. Because of the tachyarrhythmia, the segmental wall motion analysis and ejection fraction estimation could be misleading. Mildly increased left atrial size. There is no pericardial effusion. Technically difficult study because of the poor ultrasonic window. Comparison with the previous study is difficult because of the difference in the technical quality. Dr Jared Orlando MD FAC (Electronically Signed) Final Date: 11 February 2020 20:52 S
--- NOTE | 2020-02-11 13:42 | ECG_ITS ---
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 Measurements Intervals [place] Rate: 115 P: [place]: -1 QRS: -31 QRSD: 87 T: 152 QT: 324 QTc: 449 Interpretive Statements ATRIAL FLUTTER WITH RAPID VENTRICULAR RESPONSE WITH ABERRANT CONDUCTION OR VENTRICULAR PREMATURE COMPLEXES MARKED LEFT AXIS DEVIATION [QRS AXIS < -30] ST DEVIATION AND MODERATE T-WAVE ABNORMALITY, CONSIDER ANTEROLATERAL ISCHEMIA [-0.1+ mV T WAVE IN V3-V6] Compared to ECG 02/11/2020 12:26:34 Atrial fibrillation no longer present T-wave abnormality still present Possible ischemia still present Electronically Signed On 02-11-2020 16:06:39 CDT by Gibran Garzon M.D. [id number]
[2020-02-11 14:08] LABS: Iron 16 ug/dL (59-158); Total Iron Binding Capacity 318 mcg/dl; Unsaturated Iron Binding 302 ug/dL (112-347)
[2020-02-11] MEDS: enoxaparin 40 mg/0.4 mL Syringe SUBCUT (14:26)
--- NOTE | 2020-02-11 14:48 | P.CONIM_ITS ---
Providers/Reason For Consult Consulting Physican/Specialty*: AUTUMN Orlando MD/cardiology Reason for Consult*: Patient with atrial fibrillation and congestive heart failure Attending Physician: Keesha Arnold DO Primary Care Provider: Grover Brooks History of Present Illness History of Present Illness Gagan Gandhi is a 74 year old male with a history of chronic intermittent atrial fibrillation, recurrent diastolic heart failure, high blood pressure, type 2 diabetes, chronic renal disease, chronic anemia, dyslipidemia and Lewy body dementia, is presenting with increasing shortness of breath, dry cough and swelling in the extremities. Patient apparently lives alone with some home health nurse support. His son also visits him frequently. According the patient, for the last couple of months, he been getting progressively short of breath. He has a dry cough. The symptoms get worse with the lying down posture. So he has been sitting up in the chair most of the times. He has no fever or chills. No exposure to COVID. Patient was admitted to this hospital in November of last year with atrial fibrillation with rapid ventricular rate. During that hospital admission, he had an episode of nonsustained ventricular tachycardia as well. His echocardiogram revealed severe concentric ventricular hypertrophy with ejection fraction of 50 to 55%. There is mild diffuse hypokinesia of the left ventricle. Compared to the previous study from July 2018, the ejection fraction was found to have slightly decreased. There was a concern about possible infiltrative cardiomyopathy. His serum electrophoresis revealed no monoclonal gammopathy. He had a myocardial perfusion imaging in 2018. There was some area of fixed defects with possible areas of samantha-infarction ischemia. Discussed about a cardiac authorization, to further evaluate the coronary status. Patient refused any invasive procedures at that time. He was started on Eliquis during the last hospital admission. He started having GI bleed and for that reason, was taken off the Eliquis. The patient had any GI work-up subsequently or not is not clear at this time. Because of his anemia, chronic kidney disease and GI bleed, he carries a high risk for recurrent GI bleed. For this reason, he is being treated with aspirin. Review of Systems Narrative: CONSTITUTIONAL: No fever or chills. EYES: No blurring of vision or other visual disturbances lately. ENT: No hoarseness of voice, auditory disturbances or sore throat. CARDIOVASCULAR: As mentioned above. RESPIRATORY: Cough and shortness of breath as mentioned above. Cough is mostly dry. GASTROINTESTINAL: No hematemesis or melena. GENITOURINARY: Has proteinuria, possibility 2 diabetic nephropathy. INTEGUMENTARY: No skin rashes or history of skin cancer. NEURO: History of Lewy body dementia. PSYCHIATRIC: No history of psychosis or major depression. HEMATOLOGIC: No bleeding disorders or significant anemia. ENDOCRINE: Type 2 diabetes. MUSCULOSKELETAL: No recent joint pain or swelling. ALLERGY/IMMUNOLOGY: As mentioned above. Meds/Allergies Home Medications and Allergies Home Medications Medication Instructions Recorded Confirmed Last Taken Type aspirin 81 mg tablet,delayed 81 mg PO DAILY tab 07/25/19 02/11/20 02/11/20 History release atorvastatin 10 mg tablet 10 mg PO DAILY tab 07/25/19 02/11/20 02/10/20 History chlorpheniramine maleate 4 mg 4 mg PO Q6H 07/25/19 02/11/20 Unknown History tablet cholecalciferol (vitamin D3) 50 1,000 unit PO DAILY tab 07/25/19 02/11/20 02/10/20 History mcg (2,000 unit) tablet colestipol 1 gram tablet 2 gm PO BID 07/25/19 02/11/20 02/11/20 History gabapentin 400 mg capsule 400 mg PO DAILY cap 07/25/19 02/11/20 02/10/20 History isosorbide mononitrate 60 mg 60 mg PO QAM 07/25/19 02/11/20 02/10/20 History tablet,extended release 24 hr metoprolol tartrate 75 mg tablet 75 mg PO BID 07/25/19 02/11/20 02/11/20 History omega-3 fatty acids 1,000 mg 1,000 mg PO BID 07/25/19 02/11/20 02/11/20 History capsule amlodipine 10 mg PO DAILY #60 tab 08/03/19 02/11/20 02/10/20 Rx glipizide 5 mg PO BID #60 tab 08/03/19 02/11/20 02/11/20 Rx multivitamin with iron-mineral 1 tab PO DAILY #30 tab 08/03/19 02/11/20 02/11/20 Rx sotalol 80 mg PO DAILY 02/11/20 02/11/20 02/10/20 History Allergies Allergy/AdvReac Type Severity Reaction Status Date / Time lisinopril Allergy Unknown Verified 08/01/19 08:55 Current Medications Current Medications Generic Name Dose Route Start Last Admin Trade Name Garrisonq PRN Reason Stop Dose Admin Enoxaparin Sodium 40 mg 02/11/20 12:30 02/11/20 14:26 Lovenox SUBCUT 40 mg Q24H DEBBIE Administration Diltiazem HCl 125 mg/ Sodium 125 mls @ 0 mls/hr 02/11/20 09:45 02/11/20 12:25 Chloride IV 0 mg/hr .Q0M DEBBIE 0 mls/hr Titration Protocol Per Protocol PFSH Acute PFSH: Medical History Acute on chronic diastolic (congestive) heart failure Anemia Atrial fibrillation Benign essential hypertension with target blood pressure below 140/90 Chronic anemia Chronic kidney disease Dementia Diabetes mellitus Dyslipidemia Essential hypertension GI bleeding Hypertension Lewy body dementia Mixed hyperlipidemia Neuropathy Ventricular tachycardia Surgical History H/O hernia repair S/P rotator cuff repair Family History Mother Sudden cardiac Other Cancer Diabetes Social History Smoking and tobacco status: former smoker Alcohol intake: never Marital status: / History of recent travel: No Vitals/I&O/Wt Last Vital Signs Temp 98.0 F 02/11/20 09:07 Pulse 108 H 02/11/20 13:48 Resp 18 02/11/20 13:48 BP 111/94 02/11/20 13:00 Pulse Ox 95 02/11/20 13:48 02/10/20 02/11/20 02/11/20 22:59 06:59 14:59 Intake Total 23.00 / 23.00 Balance 23.00 / 23.00 Weight last 48 hrs Weight 175 lb Physical Exam Narrative: EXAM NARRATIVE: GENERAL: The patient is alert and oriented times X2. Not in any acute distress. Slightly tachypneic , a breathing rate of 18 /min. HEENT: No significant pallor, icterus or lymphadenopathy. The pupils are equal in size. Oral cavity: There are no mucous membrane lesions. Funduscopic examination: Fundus is not visualized. NECK: Trachea appears to be central. No masses noted. No JVD or thyromegaly appreciated. No carotid bruit. RESPIRATORY: Chest is symmetrical. No intercostals muscle retraction or any accessory muscle activation. There is no chest wall tenderness. Breath sounds are heard bilaterally. Few fine rales at the bases. No evidence of any consolidation. BREASTS: Deferred. HEART: The PMI could not be palpated. No other palpable precordial events. First heart sound is variable. Second heart sound is normal. No S3. Short systolic murmur in the left sternal border. No diastolic murmurs. No pericardi al rub. ABDOMEN: No vessel pulsations or distention. No tenderness. No organomegaly appreciated. No abdominal bruit. Bowel sounds are normally heard. : Deferred. RECTAL: Deferred. LYMPHATIC: No lymphadenopathy noted in the neck or groin. EXTREMITIES: 1+ edema both lower extremities. No cyanosis. Peripheral pulses are palpable but weak bilaterally . MUSCULOSKELETAL: No acute joint deformities or swelling SKIN: There are no significant scars or skin rash noted. NEUROPSYCHIATRIC: The patient is alert and oriented x2. Appears to be in a good mood. No focal motor deficits. No rigidity or tremors noted. Data Labs: Other Labs: Laboratory Last Values WBC 8.3 10^3/uL (4.0- 10.0) 02/11/20 09:25 RBC 3.12 10^6/uL (4.1 -5.3) L 02/11/20 09:25 Hgb 8.2 g/dL (11.7-16 .6) L 02/11/20 09:25 Hct 27.3 % (42.0-52.0 ) L 02/11/20 09:25 MCV 87.5 fL (80-94) 02/11/20 09:25 MCH 26.3 pg (28.0-34. 0) L 02/11/20 09:25 MCHC 30.0 g/dL (30.0-3 6.0) 02/11/20 09:25 RDW 14.6 % (12.1-15.1 ) 02/11/20 09:25 Plt Count 223 10^3/cmm (130 -400) 02/11/20 09:25 MPV 10.4 fL (7.4-10.4 ) 02/11/20 09:25 Neut % (Auto) 68.6 % 02/11/20 09:25 Lymph % (Auto) 17.8 % 02/11/20 09:25 Dane % (Auto) 11.0 % 02/11/20 09:25 Eos % (Auto) 1.1 % 02/11/20 09:25 Baso % (Auto) 0.7 % 02/11/20 09:25 Neut # (Auto) 5.66 10^3/uL (1.8 -7.7) 02/11/20 09:25 Lymph # (Auto) 1.5 10^3/uL (0.8- 4.8) 02/11/20 09:25 Dane # (Auto) 0.9 10^3/uL (0.2- 0.9) 02/11/20 09:25 Eos # (Auto) 0.1 10^3/uL (0.0- 0.8) 02/11/20 09:25 Baso # (Auto) 0.1 10^3/uL (0.0- 0.1) 02/11/20 09:25 Nucleated RBC % (a uto) 0 % 02/11/20 09:25 Nucleated RBCs # 0.0 /100WBC 02/11/20 09:25 Sodium 134 mmol/L (136-1 45) L 02/11/20 09:25 Potassium 4.8 mmol/L (3.5-5 .1) 02/11/20 09:25 Chloride 102 mmol/L (98-10 7) 02/11/20 09:25 Carbon Dioxide 21 mmol/L (22-29) L 02/11/20 09:25 Anion Gap 15.8 (5-19) 02/11/20 09:25 BUN 28 mg/dL (8-23) H 02/11/20 09:25 Creatinine 1.6 mg/dL (0.7-1. 2) H 02/11/20 09:25 GFR Calculation Not Reportable 02/11/20 09:25 Glucose 369 mg/dL (65-115 ) H 02/11/20 09:25 Estimat Average Gl ucose 280 02/11/20 09:25 Hemoglobin A1c 11.4 % (4.0-6.0) H 02/11/20 09:25 Calculated Osmolal ity 290 mOsm/kg (285- 295) 02/11/20 09:25 Calcium 8.7 mg/dL (8.5-10 .5) 02/11/20 09:25 Phosphorus 3.2 mg/dL (2.5-4. 5) 02/11/20 11:25 Magnesium 1.8 mg/dL (1.7-2. 3) 02/11/20 11:25 Iron 16 ug/dL (59-158) L 02/11/20 09:25 TIBC 318 mcg/dl 02/11/20 09:25 % Saturation 5.0 % (20-50) L 02/11/20 09:25 Unsat Iron Binding 302 ug/dL (112-34 7) 02/11/20 09:25 Total Bilirubin 0.2 mg/dL (0.15-1 .2) 02/11/20 09:25 AST 33 U/L (0-40) 02/11/20 09:25 ALT 50 U/L (0-41) H 02/11/20 09:25 Alkaline Phosphata se 121 IU/L (40-130) 02/11/20 09:25 Troponin T Baselin e 50 ng/L (0-15) H 02/11/20 09:25 Troponin T 120 Min [place] 49.16 ng/L (0-15) H 02/11/20 11:25 Delta Troponin T -0.84 ABS# (0-10) L 02/11/20 11:25 NT-Pro-B Natriuret Pep 2061 pg/mL (0-450 ) H 02/11/20 09:25 Total Protein 6.7 g/dL (6.6-8.7 ) 02/11/20 09:25 Albumin 3.6 g/dL (3.5-5.2 ) 02/11/20 09:25 Globulin 3.1 g/dL (1.3-4.6 ) 02/11/20 09:25 TSH 5.74 uIU/mL (0.27 -4.20) H 02/11/20 11:25 Imaging^: CXR: My impression: Borderline cardiac silhouette. No acute lung infiltrate. No significant pleural effusion. Slightly prominent pulmonary vascular markings. Echo: My impression: Done on 11/30/2018 Normal LV size with a slightly diminished ejection fraction of 50-55%. Mild diffuse hypokinesia of the left ventricle Severe concentric left hypertrophy. Mild left atrial enlargement. There is no pericardial effusion. There are no intracardiac masses. Aortic root, upper limit of normal size. Compared to the study from 07/29/2018, the LVEF has slightly decreaseed Myocardial perfusion imaging: I personally reviewed and interpreted this imaging study as follows: My impression: Done on 01/30/2018 Medium-size area fixed perfusion defect noted from basal to mid inferior and inferolateral wall on both stress and rest images suggestive of old myocardial infarction versus scarring. EKG^: EKG 1: My Interpretation: The EKG showed atrial fibrillation with rapid ventricular rate of 150 bpm. Diffuse T wave changes in the anterolateral leads. Minimal voltage of anterior for LVH. Left axis deviation. A&P Assessment and plan (1) Atrial fibrillation with rapid ventricular response: The patient has a history of intermittent atrial fibrillation. He has been on the sotalol and metoprolol. According the patient, he has been compliant with medications. In view of his dementia and the fact that he lives alone raises the concern about his compliance. He denies any chest pain. Because of his chronic kidney disease, I may discontinue the sotalol and start him on amiodarone 400 mg p.o. twice daily. May continue the metoprolol 75 mg p.o. twice daily. The dose of the isosorbide may be cut back, if the blood pressure does not tolerate. Status: Acute (2) Acute on chronic diastolic (congestive) heart failure: Hemodynamically seems to be stable. Most likely the arrhythmia might have caused the heart failure. We may go ahead and do an echocardiogram, to evaluate the LV function and rule out any other pathology. Status: Acute (3) Benign essential hypertension with target blood pressure below 140/90: Currently he is normotensive. We will continue to monitor his blood pressure closely. Status: Acute (4) GI bleeding: Patient has a history of GI bleed and anemia. For this reason, he was taken off the oral anticoagulants. He is currently only on baby aspirin. Status: Acute Qualifiers: GI bleed type/associated pathology: unspecified gastrointestinal hemorrhage type Qualified Code(s): K92.2 - Gastrointestinal hemorrhage, unspec ified (5) Dyslipidemia: Continue on the current management. Follow-up evaluation as scheduled. Status: Acute (6) Diabetes mellitus: Patient requires close monitoring of his blood sugar. 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 Other etiologies cannot be excluded. Status: Acute (8) Chronic kidney disease: Patient is baseline creatinine is around 2.5 or so. The level seems to be coming down, possibly due to fluid retention. Status: Acute Qualifiers: Chronic kidney disease stage: stage 3 (moderate) Qualified Code(s): N18.3 - Chronic kidney disease, stage 3 (moderate) Additional A&P Information After reviewing the above and also based on the patient clinical progress, further recommendations will be made. Thank you for the opportunity to evaluate this patient make these recommendations. Coding Level of Care Code Acute Combination Building Inspector for Maylin Morales History Comprehensive Exam Comprehensive Medical Decision Making High Complexity Diagnoses Atrial fibrillation with rapid ventricular response I48.91 Acute on chronic diastolic (congestive) heart failure I50.33 Benign essential hypertension with target blood pressure below 140/90 I10 GI bleeding K92.2 GI bleed type/associated pathology: unspecified gastrointestinal hemorrhage type Dyslipidemia E78.5 Diabetes mellitus E11.65 Diabetes mellitus type: type 2 Diabetes mellitus mcfp insulin use: without mcfp use Diabetes mellitus complication status: with hyperglycemia Chronic anemia D64.9 Chronic kidney disease N18.3 Chronic kidney disease stage: stage 3 (moderate) Time Spent (min) 65
--- NOTE | 2020-02-11 15:35 | PC.NURSE ---
called dr rodriguez to verify metoprolol. 25 and 50 mg po BID. Give a total of 75 mg of metoprolol BID to continue his home meds.
--- NOTE | 2020-02-11 15:39 | ECG_ITS ---
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 Measurements Intervals [place] Rate: 138 P: [place]: -1 QRS: -27 QRSD: 97 T: 150 QT: 269 QTc: 409 Interpretive Statements ATRIAL FIBRILLATION WITH RAPID VENTRICULAR RESPONSE BORDERLINE LEFT AXIS DEVIATION [QRS AXIS < -20] MODERATE VOLTAGE CRITERIA FOR LVH, CONSIDER NORMAL VARIANT [MEETS CRITERIA IN ONE OF: R(aVL), S(V1), R(V5), R(V5/V6)+S(V1)] ST DEVIATION AND MODERATE T-WAVE ABNORMALITY, CONSIDER LATERAL ISCHEMIA [-0.1+ mV T WAVE IN I/aVL/V5/V6] Compared to ECG 07/31/2019 01:25:30 Sinus rhythm no longer present T-wave abnormality still present Possible ischemia still present Electronically Signed On 02-11-2020 16:16:31 CDT by Gibran Garzon M.D. [id number]
--- NOTE | 2020-02-11 15:39 | PC.NURSE ---
called dr rodriguez regarding pt heart rate of 113. stated she would contact dr batista for further direction. dr rodriguez called and stated she ordered sotalol [address] batista called to cancel order and will order different medicine. awaiting that new order from dr batista.
[2020-02-11 16:18] LABS: Troponin 5 6HR 51.46 ng/L (0-15); Troponin 5 6HR Delta 1.46 ng/L (0-12)
[2020-02-11] MEDS: amiodarone 200 mg Tablet 400 MG PO (16:37)
[2020-02-11 16:48] LABS: Free T4 Free Thyroxine 1.01 ng/dL (0.82-1.77)
[2020-02-11 17:08] LABS: Glucose Point of Care 413 mg/dL (70-110)
[2020-02-11] MEDS: metoprolol tartrate 25 mg Tablet PO (17:20)
[2020-02-11] MEDS: metoprolol tartrate 50 mg Tablet PO (17:21)
--- NOTE | 2020-02-11 18:45 | PC.NURSE ---
called dr batista with current vitals. 125HR BP 127/79 pt reports feeling bad and tired. dr batista verbal order 40 lasix ivp and 20 meq po potassium[address] call dr batista in a few hours to report how he is doing.
[2020-02-11] MEDS: potassium chloride ER 10 mEq Tablet 20 MEQ PO (18:58)
[2020-02-11 20:15] LABS: Glucose Point of Care 263 mg/dL (70-110)
--- NOTE | 2020-02-11 20:36 | PC.NURSE ---
Received bedside report from Dara RN Resident/ZEB Calhoun at 1850. Patient resting in bed. No distress observed. Patient states, I don't like drinking water. Patient did not eat dinner and drank 60ml of fruit drink on tray. Encouraged PO fluids offered, snack for later. Patient verbalized understanding.
[2020-02-12] VITALS (10 sets, daily range): BP systolic 109–146; BP diastolic 60–94; PULSE 67–133; RESP 17–30; TEMP 36.4–36.9; O2SAT 91–96
--- NOTE | 2020-02-12 00:57 | PC.NURSE ---
Patient c/o nausea. Asked for food to help. Provided pudding and sandwich. Patient unable to eat either. Patient assisted up to bathroom for BM. Patient has PO Zofran ordered however he does not think he could keep that down right now. Informed Dr Hull and dr gaston order for Zofran IVP. Will administer as ordered.
[2020-02-12] MEDS: ondansetron 2 mg/ML SDV 2 mL 4 MG IVP (01:01)
[2020-02-12 05:04] LABS: Basophils # 0.1 10^3/uL (0.0-0.1); Basophils % 0.6 %; Eosinophils # 0.1 10^3/uL (0.0-0.8); Eosinophils % 1.6 %; Hemoglobin 7.9 g/dL (11.7-16.6); Lymphocytes # 1.7 10^3/uL (0.8-4.8); Mean Corpuscular HGB Conc 29.3 g/dL (30.0-36.0); Mean Corpuscular Hemoglobin 25.2 pg (28.0-34.0); Mean Corpuscular Volume 86.3 fL (80-94); Mean Platelet Volume 10.5 fL (7.4-10.4); Monocytes # 0.8 10^3/uL (0.2-0.9); Monocytes % 9.9 %; Neutrophils # 5.68 10^3/uL (1.8-7.7); Nucleated Red Blood Cells % 0 %; Platelet Count 229 10^3/cmm (130-400); Red Blood Count 3.13 10^6/uL (4.1-5.3); Red Cell Distribution Width 14.6 % (12.1-15.1); White Blood Count 8.5 10^3/uL (4.0-10.0)
[2020-02-12 05:21] LABS: Anion Gap 13.9 (5-19); Blood Urea Nitrogen 31 mg/dL (8-23); Carbon Dioxide 22 mmol/L (22-29); Chloride 100 mmol/L (98-107); Cholesterol 147 mg/dL (0-200); Glucose 317 mg/dL (65-115); HDL Cholesterol 35 mg/dL (60-100); Osmolality Calculated 281 mOsm/kg (285-295); Potassium 4.9 mmol/L (3.5-5.1); Sodium 131 mmol/L (136-145); Triglycerides 502 mg/dL (0-150)
[2020-02-12] MEDS: HYDROcodone-acetaminophen 5-325 mg Tablet 1 TAB PO (05:27)
[2020-02-12] MEDS: isosorbide mononitrate ER 60 mg Tablet PO (05:27)
[2020-02-12 05:38] LABS: LDL Cholesterol Direct 53 mg/dL (0-100)
[2020-02-12 06:18] LABS: Glucose Point of Care 336 mg/dL (70-110)
[2020-02-12] MEDS: atorvastatin 40 mg Tablet 20 MG PO (08:19)
[2020-02-12] MEDS: amlodipine 5 mg Tablet 10 MG PO (08:19)
[2020-02-12] MEDS: metoprolol tartrate 50 mg Tablet PO ×2 (08:20→17:30)
[2020-02-12] MEDS: metoprolol tartrate 25 mg Tablet PO ×2 (08:20→17:29)
[2020-02-12] MEDS: amiodarone 200 mg Tablet 400 MG PO ×2 (08:20→17:30)
[2020-02-12] MEDS: aspirin 81 mg EC Tablet PO (08:20)
[2020-02-12] MEDS: gabapentin 400 mg Capsule PO (08:21)
--- NOTE | 2020-02-12 08:39 | PC.OT ---
OT note: RN requested hold at this time and at least this morning due to increased heart rate. Will reattempt later as able.
--- NOTE | 2020-02-12 10:38 | ECG_ITS ---
[facility] Test Date: 2020-02-12 Pat Name: Gagan Gandhi Department: Room: 104 Gender: Male Technical Coordinator: : 1945 Requested By: Jared Orlando Order Number: [id number] Gabrielle MD: Jared Orlando M.D. Measurements Intervals [place] Rate: 72 P: -2 [place]: 195 QRS: -18 QRSD: 86 T: 160 QT: 401 QTc: 442 Interpretive Statements SINUS RHYTHM WITH SINUS ARRHYTHMIA ST DEVIATION AND MODERATE T-WAVE ABNORMALITY, CONSIDER ANTEROLATERAL ISCHEMIA [-0.1+ mV T WAVE IN V3-V6] Compared to ECG 02/11/2020 13:47:55 Atrial flutter no longer present Aberrant conduction of supraventricular beat(s) no longer present Ventricular premature complex(es) no longer present Left-axis deviation no longer present T-wave abnormality still present Possible ischemia still present Electronically Signed On 02-12-2020 20:46:43 CDT by Jared Orlando M.D. [id number]
[2020-02-12 11:03] LABS: Glucose Point of Care 380 mg/dL (70-110)
[2020-02-12] MEDS: magnesium sulfate premix 2 GM/50 ML PIGGYBACK IV (11:21)
--- NOTE | 2020-02-12 11:51 | P.PN_ITS ---
Subjective Subjective: Interval history: Patient is feeling okay. Telemetry shows sinus rhythm. He is on amiodarone 400 mg p.o. twice daily. Betapace was discontinued. Medications: Reviewed: Yes Medication Review Details: Current Medications Acetaminophen (Tylenol) 650 mg PO Q6H PRN PRN Reason: Mild/Mod Pain Or Temp >/= 101 Hydrocodone Bitart/Acetaminophen (Martinez 5-325 Mg) 1 tab PO Q4H PRN PRN Reason: MODERATE TO SEVERE PAIN Last Admin: 02/12/20 05:27 Dose: 1 tab Documented by: Amiodarone HCl (Cordarone) 400 mg PO BID [facility] Last Admin: 02/12/20 08:20 Dose: 400 mg Documented by: Amlodipine Besylate (Norvasc) 10 mg PO DAILY [facility] Last Admin: 02/12/20 08:19 Dose: 10 mg Documented by: Aspirin (Aspirin Ec) 81 mg PO DAILY [facility] Last Admin: 02/12/20 08:20 Dose: 81 mg Documented by: Atorvastatin Calcium (Lipitor) 20 mg PO DAILY [facility] Last Admin: 02/12/20 08:19 Dose: 20 mg Documented by: Dextrose (D50w) 25 ml IVP ONCE PRN; Protocol PRN Reason: hypoglycemia protocol Dextrose (D50w) 50 ml IVP PRN PRN; Protocol PRN Reason: hypoglycemia protocol Enoxaparin Sodium (Lovenox) 40 mg SUBCUT Q24H [facility] Last Admin: 02/11/20 14:26 Dose: 40 mg Documented by: Gabapentin (Neurontin) 400 mg PO DAILY [facility] Last Admin: 02/12/20 08:21 Dose: 400 mg Documented by: Glucagon (Glucagen) 1 mg IM ONCE PRN; Protocol PRN Reason: Adult Acute Hypoglycemia Prot. Dextrose (D5w) 500 mls @ 100 mls/hr IV ONCE PRN; Protocol PRN Reason: Adult Acute Hypoglycemia Prot Insulin Aspart (Novolog) 0 unit SUBCUT BEDTIME [facility]; Protocol Last Admin: 02/11/20 20:33 Dose: 4 unit Documented by: Insulin Aspart (Novolog) 0 unit SUBCUT TIDWM [facility]; Protocol Last Admin: 02/12/20 11:20 Dose: 12 unit Documented by: Isosorbide Mononitrate (Imdur) 60 mg PO QAM [facility] Last Admin: 02/12/20 05:27 Dose: 60 mg Documented by: Metoprolol Tartrate (Lopressor) 25 mg PO BID [facility] Last Admin: 02/12/20 08:20 Dose: 25 mg Documented by: Metoprolol Tartrate (Lopressor) 50 mg PO BID [facility] Last Admin: 02/12/20 08:20 Dose: 50 mg Documented by: Morphine Sulfate (Morphine) 2 mg IVP Q4H PRN PRN Reason: SEVERE PAIN Ondansetron HCl (Zofran) 4 mg PO Q8H PRN PRN Reason: NAUSEA Ondansetron HCl (Zofran) 4 mg IVP Q6H PRN PRN Reason: NAUSEA AND VOMITING Last Admin: 02/12/20 01:01 Dose: 4 mg Documented by: Vitals/I&O/Wt Last Vital Signs Temp 97.6 F 02/12/20 03:58 Pulse 80 02/12/20 11:21 Resp 18 02/12/20 05:00 BP 136/94 02/12/20 03:58 Pulse Ox 95 02/12/20 11:21 02/11/20 02/12/20 02/12/20 22:59 06:59 14:59 Intake Total 420 / 443.00 240 / 683.00 340 / 340 Output Total 600 / 775 200 / 975 220 / 220 Balance -180 / -332.00 40 / -292.00 120 / 120 Weight last 48 hrs Weight 188 lb 4.8 oz Weight 188 lb 4.8 oz Weight 175 lb Physical Exam Narrative: EXAM NARRATIVE: GENERAL: The patient is alert and oriented times X2. Not in any acute distress. HEENT: No significant pallor, icterus or lymphadenopathy. The pupils are equal in size. Oral cavity: There are no mucous membrane lesions. NECK: Trachea appears to be central. No masses noted. No JVD or thyromegaly appreciated. No carotid bruit. RESPIRATORY: Chest is symmetrical. No intercostals muscle retraction or any accessory muscle activation. There is no chest wall tenderness. Breath sounds are heard bilaterally. Few fine rales at the bases. No evidence of any consolidation. BREASTS: Deferred. HEART: The PMI could not be palpated. No other palpable precordial events. First heart sound is variable. Second heart sound is normal. No S3. Short systolic murmur in the left sternal border. No diastolic murmurs. No pericardial rub. ABDOMEN: No vessel pulsations or distention. No tenderness. No organomegaly appreciated. No abdominal bruit. Bowel sounds are normally heard. : Deferred. RECTAL: Deferred. LYMPHATIC: No lymphadenopathy noted in the neck or groin. EXTREMITIES: 1+ edema both lower extremities. No cyanosis. Peripheral pulses are palpable but weak bilaterally . MUSCULOSKELETAL: No acute joint deformities or swelling SKIN: There are no significant scars or skin rash noted. NEUROPSYCHIATRIC: The patient is alert and oriented x2. Appears to be in a good mood. No focal motor deficits. No rigidity or tremors noted. Data : 02/12/20 04:34 02/12/20 04:34 Echo: My impression: Moderate concentric left ventricle hypertrophy. Diffuse hypokinesia left ventricle. Ejection fraction around 45 to 50%. Because of the tachyarrhythmia, the segmental wall motion analysis and ejection fraction estimation could be misleading. Mildly increased left atrial size. There is no pericardial effusion. Technically difficult study because of the poor ultrasonic window. Comparison with the previous study is difficult because of the difference in the technical quality. EKG 2: My Interpretation: EKG revealed a sinus rhythm with a left axis deviation. Diffuse T inversions in the anterolateral and high lateral leads. Compared to EKG from 11/30/2019, no significant change A&P Assessment and plan (1) Atrial fibrillation with rapid ventricular response: Patient is currently in sinus rhythm. The repeat EKG this morning revealed a sinus rhythm with QTC of 442. He has diffused inversions in the anterolateral and high lateral leads. Left axis deviation. The EKG changes are similar to what he had on 11/30/2018. Status: Acute (2) Acute on chronic diastolic (congestive) heart failure: Hemodynamically seems to be stable. Most likely the arrhythmia might have caused the heart failure. Patient had echocardiogram done yesterday. The findings are as follows. There is slight drop in the LV ejection fraction. Because of the technical difficulties and the arrhythmia, comparison with the previous echocardiogram is difficult. We may do a repeat limited 2D echocardiogram with the normal sinus rhythm Status: Acute (3) Benign essential hypertension with target blood pressure below 140/90: Currently he is normotensive. We will continue to monitor his blood pressure closely. Status: Acute (4) GI bleeding: Patient has a history of GI bleed and anemia. For this reason, he was taken off the oral anticoagulants. He is currently only on baby aspirin. Hemoglobin seems to be slowly dropping. May require further GI work-up. Status: Acute Qualifiers: GI bleed type/associated pathology: unspecified gastrointestinal hemorrhage type Qualified Code(s): K92.2 - Gastrointestinal hemorrhage, unspecified (5) Dyslipidemia: Continue on the current management. Follow-up evaluation as scheduled. Status: Acute (6) Diabetes mellitus: Patient requires close monitoring of his blood sugar. Status: Acute Qualifiers: Diabetes mellitus type: type 2 Diabetes mellitus half-way insulin use: without terminal superintendent use Diabetes mellitus complication status: with hyperglycemia Qualified Code(s): E11.65 - Type 2 diabetes mellitus with hyperglycemia (7) Chronic anemia: Etiology of anemia, could be related to GI bleed . Other etiologies cannot be excluded. May need further GI work-up. Status: Acute (8) Chronic kidney disease: Patient is baseline creatinine is around 2.5 or so. The level seems to be coming down, possibly due to fluid retention. Today the creatinine went up to 1.9 from 1.5. Status: Acute Qualifiers: Chronic kidney disease stage: stage 3 (moderate) Qualified Code(s): N18.3 - Chronic kidney disease, stage 3 (moderate) Additional A&P Information Patient may be continued on the current dose of amiodarone for total of 7 days followed by 400 mg daily for 7 days followed by 200 mg p.o. daily Attestations Medical Necessity Statement*: Patient requires continued hospital stay for close monitoring and further management Coding Level of Care Code Acute Dynamometer Tuner for [facility] Fwd Diagnoses Atrial fibrillation with rapid ventricular response I48.91 Acute on chronic diastolic (congestive) heart failure I50.33 Benign essential hypertension with target blood pressure below 140/90 I10 GI bleeding K92.2 GI bleed type/associated pathology: unspecified gastrointestinal hemorrhage type Dyslipidemia E78.5 Diabetes mellitus E11.65 Diabetes mellitus type: type 2 Diabetes mellitus terminal superintendent insulin use: without half-way use Diabetes mellitus complication status: with hyperglycemia Chronic anemia D64.9 Chronic kidney disease N18.3 Chronic kidney disease stage: stage 3 (moderate)
--- NOTE | 2020-02-12 12:11 | ECG_ITS ---
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 Measurements Intervals [place] Rate: 71 P: 0 MA: 205 QRS: -25 QRSD: 90 T: 160 QT: 411 QTc: 447 Interpretive Statements SINUS RHYTHM BORDERLINE LEFT AXIS DEVIATION [QRS AXIS < -20] ST DEVIATION AND MODERATE T-WAVE ABNORMALITY, CONSIDER ANTEROLATERAL ISCHEMIA [-0.1+ mV T WAVE IN V3-V6] INTERPRETATION BASED ON A DEFAULT AGE OF 40 YEARS Compared to ECG 02/12/2020 10:49:45 Sinus arrhythmia no longer present T-wave abnormality still present Possible ischemia still present Electronically Signed On 02-12-2020 20:42:26 CDT by Jared Orlando M.D. [id number]
[2020-02-12] MEDS: enoxaparin 40 mg/0.4 mL Syringe SUBCUT (13:24)
--- NOTE | 2020-02-12 16:00 | P.PN_ITS ---
Subjective Subjective: Interval history: He says he is doing well. Reports I am still alive and kicking . Denies any chest pain or pressure. When asked if he gets more short of breath lying flat, reports that he starts having some cough if he lays flat. Vitals/I&O/Wt Last Vital Signs Temp 97.6 F 02/12/20 03:58 Pulse 80 02/12/20 11:21 Resp 18 02/12/20 05:00 BP 136/94 02/12/20 03:58 Pulse Ox 95 02/12/20 11:21 02/12/20 02/12/20 02/12/20 06:59 14:59 22:59 Intake Total 240 / 683.00 580 / 580 Output Total 200 / 975 221 / 221 Balance 40 / -292.00 359 / 359 Weight last 48 hrs Weight 85.411 kg Weight 85.411 kg Weight 79.379 kg Physical Exam Const: COMMON NORMALS: no acute distress and patient oriented x3 HENMT: COMMON NORMALS: oropharynx normal Neck/C-Spine: COMMON NORMALS: no JVD Resp: COMMON NORMALS: normal respiratory effort and clear to auscultation bilaterally AUSCULTATION: clear to auscultation bilaterally Cardio: COMMON NORMALS: no JVD, regular rhythm, S1 normal heart sound present, S2 normal heart sound present and No murmurs present (Cardio) RHYTHM: regular rhythm HEART SOUNDS: S1 normal heart sound present and S2 normal heart sound present GI: COMMON NORMALS: Normal to inspection, nondistended, normoactive bowel sounds present, Soft to palpation and non-tender PALPATION: Yes Soft to palpation Extremity: COMMON NORMALS: no joint enlargement GENERAL: Yes edema (2+) Neuro: COMMON NORMALS: patient oriented x3 and moves all extremities Skin: COMMON NORMALS: no rashes or lesions noted GENERAL SKIN EXAM: no rashes or lesions noted Data : 02/12/20 04:34 02/12/20 04:34 A&P Assessment and plan (1) Atrial fibrillation with rapid ventricular response: Heart rates are somewhat better, but still 110 this morning. Continues on metoprolol 75 mg twice a day. Amiodarone 400 mg twice a day. Magnesium replaced. In the afternoon heart rates appear improved, and in NSR. Appreciate cardiology follow-up. Continue telemetry monitoring. Ventricular tachycardia in the past. Not on any anticoagulation due to chronic anemia and history of GI bleed Status: Acute (2) Congestive heart failure: We will repeat 1 dose of diuretic today, she reports some orthostatic symptoms, and also still has 2+ peripheral edema. Echocardiogram suboptimal due to atrial fibrillation, EF 45-50%. Status: Acute (3) Anemia: Hemoglobin slightly down today to 7.9. Iron deficiency anemia. Normocytic. Possibly combination with anemia of chronic disease. We will request for Hemoccult. Start trial of PPI. We will switch from Lovenox to lower dose heparin. May require additional investigation for iron deficiency anemia. With history of GI bleed. Status: Acute (4) Dyslipidemia: Continue statin Status: Acute (5) Hypertension: Somewhat variable. Mostly close to goal. Monitor. Continue amlodipine and metoprolol Status: Acute Qualifiers: Hypertension type: essential hypertension Qualified Code(s): I10 - Essential (primary) hypertension (6) Dementia: Appears to be at baseline Status: Acute (7) Diabetes mellitus: hold home glipizide Low dose sliding scale insulin as needed Status: Acute Qualifiers: Diabetes mellitus type: type 2 Diabetes mellitus care home insulin use: without care home use Diabetes mellitus complication status: with hyperglycemia Qualified Code(s): E11.65 - Type 2 diabetes mellitus with hyperglycemia Additional A&P Information Fatigue: He is feeling somewhat better today. TSH is normal. Suspect secondary to CHF, A. fib with RVR. DVT prophylaxis: Switch to subcu every 12 hours heparin Diet: Cardiac, carbohydrate consistent CODE STATUS: Full code Attestations Medical Necessity Statement*: Continue admission versus management of congestive heart failure, atrial fibrillation with RVR, anemia while needing antiplatelet medication. Coding Level of Care Code Acute Home Health Travel Pt for [place] Fwd Diagnoses Atrial fibrillation with rapid ventricular response I48.91 Congestive heart failure I50.9 Anemia D64.9 Dyslipidemia E78.5 Hypertension I10 Hypertension type: essential hypertension Dementia F03.90 Diabetes mellitus E11.65 Diabetes mellitus type: type 2 Diabetes mellitus care home insulin use: without watermelon inspector use Diabetes mellitus complication status: with hyperglycemia
[2020-02-12] MEDS: FUROsemide 10 mg/mL SDV 4mL 40 MG IVP (16:36)
[2020-02-12] MEDS: pantoprazole DR 40 mg Tablet PO (16:36)
[2020-02-12 16:41] LABS: Glucose Point of Care 251 mg/dL (70-110)
[2020-02-12] MEDS: benzonatate 100 mg Capsule PO (17:29)
--- NOTE | 2020-02-12 19:12 | PC.NURSE ---
Received bedside report from ZEB Calhoun. Patient resting in bed with eyes closed, even non-labored respirations observed. Patient awoke with need to cough. Patient stated, I forgot where I was. I was dreaming about a basketball player and woke up feeling I was choking. Patient does not produce anything during cough. Provided diet Coke per patient request. Patient sitting on edge of bed using urinal. Assessment completed as documented.
[2020-02-12 20:26] LABS: Glucose Point of Care 377 mg/dL (70-110)
--- NOTE | 2020-02-12 23:00 | PC.NURSE ---
Observed patient to have a 15 beat run VTach. Patient denies any discomforts. No distress observed. Informed Dr Hull. No orders received.
--- NOTE | 2020-02-12 23:25 | PC.NURSE ---
Cough Patient requesting something else for persistent dry cough. Informed Dr Hull of patient request and doctor placed order.
[2020-02-12] MEDS: guaiFENesin-codeine UDC 10 mL PO (23:31)
[2020-02-13] VITALS (8 sets, daily range): BP systolic 116–136; BP diastolic 56–76; PULSE 65–73; RESP 17–26; TEMP 36.5–37.1; O2SAT 91–94
[2020-02-13 05:31] LABS: Basophils # 0.1 10^3/uL (0.0-0.1); Basophils % 0.9 %; Eosinophils # 0.3 10^3/uL (0.0-0.8); Eosinophils % 3.3 %; Hematocrit 26.9 % (42.0-52.0); Lymphocytes # 1.7 10^3/uL (0.8-4.8); Lymphocytes % 22.9 %; Mean Corpuscular HGB Conc 29.7 g/dL (30.0-36.0); Mean Corpuscular Hemoglobin 26.2 pg (28.0-34.0); Mean Corpuscular Volume 88.2 fL (80-94); Mean Platelet Volume 10.2 fL (7.4-10.4); Monocytes # 0.7 10^3/uL (0.2-0.9); Monocytes % 8.6 %; Neutrophils # 4.82 10^3/uL (1.8-7.7); Neutrophils % 63.6 %; Nucleated Red Blood Cells % 0 %; Platelet Count 238 10^3/cmm (130-400); Red Blood Count 3.05 10^6/uL (4.1-5.3); Red Cell Distribution Width 14.7 % (12.1-15.1); White Blood Count 7.6 10^3/uL (4.0-10.0)
[2020-02-13 05:48] LABS: Magnesium 2.2 mg/dL (1.7-2.3)
[2020-02-13 05:49] LABS: Anion Gap 14.8 (5-19); Blood Urea Nitrogen 39 mg/dL (8-23); Calcium 8.5 mg/dL (8.5-10.5); Carbon Dioxide 24 mmol/L (22-29); Chloride 96 mmol/L (98-107); Glucose 365 mg/dL (65-115); Osmolality Calculated 282 mOsm/kg (285-295); Potassium 4.8 mmol/L (3.5-5.1); Sodium 130 mmol/L (136-145)
[2020-02-13] MEDS: isosorbide mononitrate ER 60 mg Tablet PO (06:04)
[2020-02-13 06:11] LABS: Glucose Point of Care 368 mg/dL (70-110)
[2020-02-13] MEDS: gabapentin 400 mg Capsule PO (08:02)
[2020-02-13] MEDS: pantoprazole DR 40 mg Tablet PO (08:02)
[2020-02-13] MEDS: aspirin 81 mg EC Tablet PO (08:03)
[2020-02-13] MEDS: atorvastatin 40 mg Tablet 20 MG PO (08:03)
[2020-02-13] MEDS: amiodarone 200 mg Tablet 400 MG PO ×2 (08:04→17:57)
[2020-02-13] MEDS: amlodipine 5 mg Tablet 10 MG PO (08:04)
[2020-02-13] MEDS: metoprolol tartrate 25 mg Tablet PO ×2 (08:05→17:58)
[2020-02-13] MEDS: metoprolol tartrate 50 mg Tablet PO ×2 (08:05→17:58)
--- NOTE | 2020-02-13 09:45 | ECG_ITS ---
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 Measurements Intervals [place] Rate: 71 P: -4 HI: 206 QRS: -30 QRSD: 88 T: 149 QT: 401 QTc: 436 Interpretive Statements SINUS RHYTHM BORDERLINE LEFT AXIS DEVIATION [QRS AXIS < -20] ST DEVIATION AND MODERATE T-WAVE ABNORMALITY, CONSIDER ANTEROLATERAL ISCHEMIA [-0.1+ mV T WAVE IN V3-V6] Compared to ECG 02/12/2020 12:13:28 No significant changes Electronically Signed On 02-14-2020 9:41:02 CDT by Jared Orlando M.D. [id number]
--- NOTE | 2020-02-13 10:34 | PM.PN ---
Subjective Subjective: Interval history: Reports significant cough episodes last night and today. Denies any shortness of breath, no chills, sore throat, sneezing, headache or other respiratory complaints. Cough is nonproductive. Denies chest pain or pressure. Does report that if he gets a cough about keeps coughing until he gets dizzy. Vitals/I&O/Wt Last Vital Signs Temp 98.7 F 02/13/20 07:54 Pulse 70 02/13/20 08:00 Resp 20 H 02/13/20 07:54 BP 120/56 02/13/20 07:54 Pulse Ox 92 02/13/20 07:54 02/12/20 02/13/20 02/13/20 22:59 06:59 14:59 Intake Total 640 / 1270 480 / 1750 340 / 340 Output Total 660 / 881 600 / 1481 Balance -20 / 389 -120 / 269 340 / 340 Weight last 48 hrs Weight 86.591 kg Weight 85.411 kg Weight 85.411 kg Physical Exam Const: COMMON NORMALS: no acute distress and patient oriented x3 HENMT: COMMON NORMALS: oropharynx normal Neck/C-Spine: COMMON NORMALS: no JVD Resp: COMMON NORMALS: normal respiratory effort and clear to auscultation bilaterally AUSCULTATION: clear to auscultation bilaterally Cardio: COMMON NORMALS: no JVD, regular rhythm, S1 normal heart sound present, S2 normal heart sound present and No murmurs present (Cardio) RHYTHM: regular rhythm HEART SOUNDS: S1 normal heart sound present and S2 normal heart sound present GI: COMMON NORMALS: Normal to inspection, nondistended, normoactive bowel sounds present, Soft to palpation and non-tender PALPATION: Yes Soft to palpation Extremity: COMMON NORMALS: no joint enlargement GENERAL: Yes edema (2+) Neuro: COMMON NORMALS: patient oriented x3 and moves all extremities Skin: COMMON NORMALS: no rashes or lesions noted GENERAL SKIN EXAM: no rashes or lesions noted Data : 02/13/20 05:08 02/13/20 05:08 A&P Assessment and plan (1) Cough: Has been having some bouts of cough yesterday and today. Reports sometimes so severe today make him lightheaded. Nonproductive. No chest pain or pressure. No other symptoms of upper or lower respiratory infection endorsed by him. Air entry is decent on exam, does have some crackling in the left lower lobe. Will check chest x-ray. Does have Tessalon Perls ordered. Will order breathing treatment as needed. Sputum culture if becomes productive. Possible bronchitis. Status: Acute (2) Ventricular tachycardia: Run of VT noted on telemetry. Requires additional monitoring in the hospital while cardiology is optimizing his antiarrhythmic medications. Sotalol was discontinued, and so needs additional monitoring while initiating amiodarone. Could not reach his son for update. Status: Acute (3) Atrial fibrillation with rapid ventricular response: At this time continues in sinus rhythm. Continue amiodarone. Appreciate cardiology recommendations. 400 mg twice a day for 7 days, subsequently 7 days of 400 mg daily, then decrease to 200 mg a day. In the afternoon heart rates appear improved, and in NSR. Continue telemetry monitoring. Ventricular tachycardia in the past. Not on any anticoagulation due to chronic anemia and history of GI bleed. Status: Acute (4) Congestive heart failure: For today hold off additional diuretic. Monitor volume status. Renal function. We will repeat 1 dose of diuretic today, she reports some orthostatic symptoms, and also still has 2+ peripheral edema. Echocardiogram suboptimal due to atrial fibrillation, EF 45-50%. Status: Acute (5) Anemia: His hemoglobin appears to have stabilized. Today at 8. If remains stable, may still benefit from additional evaluation on outpatient basis. Iron deficiency anemia. Normocytic. Possibly combination with anemia of chronic disease. Requested for Hemoccult. Trial of PPI. Lower dose heparin. History of GI bleed. Status: Acute (6) Dyslipidemia: Continue statin Status: Acute (7) Hypertension: Somewhat variable. Mostly close to goal. Monitor. Continue amlodipine and metoprolol Status: Acute Qualifiers: Hypertension type: essential hypertension Qualified Code(s): I10 - Essential (primary) hypertension (8) Dementia: Appears to be at baseline Status: Acute (9) Diabetes mellitus: Hold home glipizide Low dose sliding scale insulin as needed Status: Acute Qualifiers: Diabetes mellitus type: type 2 Diabetes mellitus terminal worker insulin use: without terminal worker use Diabetes mellitus complication status: with hyperglycemia Qualified Code(s): E11.65 - Type 2 diabetes mellitus with hyperglycemia Additional A&P Information Fatigue: He is feeling somewhat better today. TSH is normal. Suspect secondary to CHF, A. fib with RVR. DVT prophylaxis: Switch to subcu every 12 hours heparin Diet: Cardiac, carbohydrate consistent CODE STATUS: Full code Attestations Medical Necessity Statement*: Continue admission for optimization of control of her arrhythmia with noted ventricular tachycardia, optimization of volume status with CHF, monitoring of hemoglobin with anemia while requiring antiplatelet medication. Coding Level of Care Code Acute Steel Erecting Pusher for g Fwd Diagnoses Cough R05 Ventricular tachycardia I47.2 Atrial fibrillation with rapid ventricular response I48.91 Congestive heart failure I50.9 Anemia D64.9 Dyslipidemia E78.5 Hypertension I10 Hypertension type: essential hypertension Dementia F03.90 Diabetes mellitus E11.65 Diabetes mellitus type: type 2 Diabetes mellitus chcf insulin use: without chcf use Diabetes mellitus complication status: with hyperglycemia
--- NOTE | 2020-02-13 10:36 | XRR_ITS ---
PROCEDURE INFORMATION: Exam: XR Chest, 1 View Exam date and time: 02/13/2020 10:36 AM Age: 74 years old Clinical indication: Cough TECHNIQUE: Imaging protocol: XR of the chest Views: Frontal portable upright view of the chest. COMPARISON: CR XR chest 1V portable [id number] 02/11/2020 9:59 AM FINDINGS: Tubes, catheters and devices: EKG leads are present overlying the chest. Lungs: Mild right mid-basilar pulmonary subsegmental atelectasis. The lungs are otherwise peripherally clear bilaterally. The pulmonary vasculature is normal. Pleural space: No pleural effusion. No pneumothorax. Heart/Mediastinum: Stable mild cardiomegaly. Mediastinum: Stable. Vasculature: Mild aortic arch atherosclerotic calcification without ectasia. Bones/joints: Stable. XR/XR chest 1V portable [id number] IMPRESSION: Mild right mid-basilar pulmonary subsegmental atelectasis.
[2020-02-13 11:25] LABS: Glucose Point of Care 397 mg/dL (70-110)
[2020-02-13] MEDS: heparin 5,000 unit/mL INJ 1 mL 5000 UNIT SUBCUT (12:27)
--- NOTE | 2020-02-13 12:48 | P.PN_ITS ---
Subjective Subjective: Interval history: Patient is complaining of shortness of breath with exertion and also cough. Denies any chest pain or palpitations. No dizziness or syncopal episode. Telemetry showed episodes of atrial fibrillation rapid ventricular rate up until midnight last night. He also had an episode of nonsustained ventricular tachycardia. EKG from today revealed a sinus rhythm with T inversions in the anterolateral and high lateral leads. The QTC was 436. No significant change from yesterday. Medications: Reviewed: Yes Medication Review Details: Current Medications Acetaminophen (Tylenol) 650 mg PO Q6H PRN PRN Reason: Mild/Mod Pain Or Temp >/= 101 Hydrocodone Bitart/Acetaminophen ([place] 5-325 Mg) 1 tab PO Q4H PRN PRN Reason: MODERATE TO SEVERE PAIN Last Admin: 02/12/20 05:27 Dose: 1 tab Documented by: Albuterol/Ipratropium (Duoneb) 3 ml INHALATION Q4H PRN PRN Reason: SHORTNESS OF BREATH Amiodarone HCl (Cordarone) 400 mg PO BID [facility] Last Admin: 02/13/20 08:04 Dose: 400 mg Documented by: Amlodipine Besylate (Norvasc) 10 mg PO DAILY [facility] Last Admin: 02/13/20 08:04 Dose: 10 mg Documented by: Aspirin (Aspirin Ec) 81 mg PO DAILY [facility] Last Admin: 02/13/20 08:03 Dose: 81 mg Documented by: Atorvastatin Calcium (Lipitor) 20 mg PO DAILY [facility] Last Admin: 02/13/20 08:03 Dose: 20 mg Documented by: Benzonatate (Tessalon Pearls) 100 mg PO TID PRN PRN Reason: COUGH Last Admin: 02/12/20 17:29 Dose: 100 mg Documented by: Dextrose (D50w) 25 ml IVP ONCE PRN; Protocol PRN Reason: hypoglycemia protocol Dextrose (D50w) 50 ml IVP PRN PRN; Protocol PRN Reason: hypoglycemia protocol Gabapentin (Neurontin) 400 mg PO DAILY [facility] Last Admin: 02/13/20 08:02 Dose: 400 mg Documented by: Glucagon (Glucagen) 1 mg IM ONCE PRN; Protocol PRN Reason: Adult Acute Hypoglycemia Prot. Heparin Sodium (Beef Lung) (Heparin) 5,000 unit SUBCUT Q12H [facility] Last Admin: 02/13/20 12:27 Dose: 5,000 unit Documented by: Dextrose (D5w) 500 mls @ 100 mls/hr IV ONCE PRN; Protocol PRN Reason: Adult Acute Hypoglycemia Prot Insulin Aspart (Novolog) 0 unit SUBCUT BEDTIME [facility]; Protocol Last Admin: 02/12/20 20:34 Dose: 6 unit Documented by: Insulin Aspart (Novolog) 0 unit SUBCUT TIDWM [facility]; Protocol Last Admin: 02/13/20 12:28 Dose: 12 unit Documented by: Isosorbide Mononitrate (Imdur) 60 mg PO QAM [facility] Last Admin: 02/13/20 06:04 Dose: 60 mg Documented by: Metoprolol Tartrate (Lopressor) 25 mg PO BID [facility] Last Admin: 02/13/20 08:05 Dose: 25 mg Documented by: Metoprolol Tartrate (Lopressor) 50 mg PO BID [facility] Last Admin: 02/13/20 08:05 Dose: 50 mg Documented by: Morphine Sulfate (Morphine) 2 mg IVP Q4H PRN PRN Reason: SEVERE PAIN Ondansetron HCl (Zofran) 4 mg PO Q8H PRN PRN Reason: NAUSEA Ondansetron HCl (Zofran) 4 mg IVP Q6H PRN PRN Reason: NAUSEA AND VOMITING Last Admin: 02/12/20 01:01 Dose: 4 mg Documented by: Pantoprazole Sodium (Protonix) 40 mg PO DAILY [facility] Last Admin: 02/13/20 08:02 Dose: 40 mg Documented by: Vitals/I&O/Wt Last Vital Signs Temp 98.6 F 02/13/20 12:07 Pulse 68 02/13/20 12:07 Resp 23 H 02/13/20 12:07 BP 136/76 02/13/20 12:07 Pulse Ox 93 02/13/20 12:07 02/12/20 02/13/20 02/13/20 22:59 06:59 14:59 Intake Total 640 / 1270 480 / 1750 562 / 562 Output Total 660 / 881 600 / 1481 100 / 100 Balance -20 / 389 -120 / 269 462 / 462 Weight last 48 hrs Weight 190 lb 14.4 oz Weight 188 lb 4.8 oz Weight 188 lb 4.8 oz Physical Exam Narrative: EXAM NARRATIVE: GENERAL: The patient is alert and oriented times X2. Not in any acute distress. HEENT: No significant pallor, icterus or lymphadenopathy. The pupils are equal in size. Oral cavity: There are no mucous membrane lesions. NECK: Trachea appears to be central. No masses noted. No JVD or thyromegaly appreciated. No carotid bruit. RESPIRATORY: Breath sounds are bilaterally with no rales or rhonchi. Intensity the breath sounds are slightly diminished in the bases. BREASTS: Deferred. HEART: The PMI could not be palpated. No other palpable precordial events. First heart sound is variable. Second heart sound is normal. No S3. Short sy stolic murmur in the left sternal border. No diastolic murmurs. No pericardial rub. ABDOMEN: No vessel pulsations or distention. No tenderness. No organomegaly appreciated. No abdominal bruit. Bowel sounds are normally heard. : Deferred. RECTAL: Deferred. LYMPHATIC: No lymphadenopathy noted in the neck or groin. EXTREMITIES: No significant edema or cyanosis. Peripheral pulses are palpable but weak bilaterally . MUSCULOSKELETAL: No acute joint deformities or swelling SKIN: There are no significant scars or skin rash noted. NEUROPSYCHIATRIC: The patient is alert and oriented x2. Appears to be in a good mood. No focal motor deficits. No rigidity or tremors noted. Data : 02/13/20 05:08 02/13/20 05:08 A&P Assessment and plan (1) Atrial fibrillation with rapid ventricular response: Patient may be continued on the amiodarone and the metoprolol. Because the patient's anemia, and the chronic renal disease, he carries a high risk for bleeding. Status: Acute (2) Acute on chronic diastolic (congestive) heart failure: Hemodynamically seems to be stable. Most likely the arrhythmia might have caused the heart failure. Patient had echocardiogram done yesterday. The findings are as follows. There is slight drop in the LV ejection fraction. Because of the technical difficulties and the arrhythmia, comparison with the previous echocardiogram is difficult. We may do a repeat limited 2D echocardiog yury with the normal sinus rhythm Patient's ongoing shortness of breath with activities and the cough is unexplained at this time. This needs to be further evaluated. Status: Acute (3) Benign essential hypertension with target blood pressure below 140/90: Currently he is normotensive. We will continue to monitor his blood pressure closely. Status: Acute (4) GI bleeding: Patient has a history of GI bleed and anemia. For this reason, he was taken off the oral anticoagulants. He is currently only on baby aspirin. Hemoglobin seems somewhat stable. May require further GI work-up. Status: Acute Qualifiers: GI bleed type/associated pathology: unspecified gastrointestinal hemorrhage type Qualified Code(s): K92.2 - Gastrointestinal hemorrhage, unspecified (5) Dyslipidemia: Continue on the current management. Follow-up evaluation as scheduled. Status: Acute (6) Diabetes mellitus: Patient requires close monitoring of his blood sugar. Status: Acute Qualifiers: Diabetes mellitus type: type 2 Diabetes mellitus terminal system operator insulin use: without terminal system operator use Diabetes mellitus complication status: with hyperglycemia Qualified Code(s): E11.65 - Type 2 diabetes mellitus with hyperglycemia (7) Chronic anemia: Etiology of anemia, could be related to GI bleed . Other etiologies cannot be excluded. May need further GI work-up. Status: Acute (8) Chronic kidney disease: Patient is baseline creatinine is around 2.5 or so. The level seems to be coming down, possibly due to fluid retention. Today the creatinine went up to 1.9 from 1.5. Status: Acute Qualifiers: Chronic kidney disease stage: stage 3 (moderate) Qualified Code(s): N18.3 - Chronic kidney disease, stage 3 (moderate) Additional A&P Information Patient may be continued on the current dose of amiodarone for total of 7 days followed by 400 mg daily for 7 days followed by 200 mg p.o. daily Discussed with Dr. Taylor. His ongoing shortness of breath with activities and the cough is explained. This may need to be further evaluated. 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 [facility] Fwd Diagnoses Atrial fibrillation with rapid ventricular response I48.91 Acute on chronic diastolic (congestive) heart failure I50.33 Benign essential hypertension with target blood pressure below 140/90 I10 GI bleeding K92.2 GI bleed type/associated pathology: unspecified gastrointestinal hemorrhage type Dyslipidemia E78.5 Diabetes mellitus E11.65 Diabetes mellitus type: type 2 Diabetes mellitus half-way insulin use: without terminal system operator use Diabetes mellitus complication status: with hyperglycemia Chronic anemia D64.9 Chronic kidney disease N18.3 Chronic kidney disease stage: stage 3 (moderate)
[2020-02-13 16:44] LABS: Glucose Point of Care 428 mg/dL (70-110)
--- NOTE | 2020-02-13 16:57 | PC.NURSE ---
Blood Glucose 428 Received order to give 16 units of Novolog one time.
[2020-02-13 20:06] LABS: Glucose Point of Care 362 mg/dL (70-110)
--- NOTE | 2020-02-13 21:08 | PC.NURSE ---
Patient resting in bed. Patient denies any pain or needs. Patient does have a dry hacking cough. patient ambulates to the bathroom with minimal assistance. Will continue to monitor.
[2020-02-14] VITALS (18 sets, daily range): BP systolic 121–147; BP diastolic 63–85; PULSE 62–90; RESP 15–26; TEMP 36.6–36.9; O2SAT 90–98
[2020-02-14] MEDS: heparin 5,000 unit/mL INJ 1 mL 5000 UNIT SUBCUT (01:31)
[2020-02-14 05:25] LABS: Basophils # 0.1 10^3/uL (0.0-0.1); Basophils % 0.6 %; Eosinophils # 0.2 10^3/uL (0.0-0.8); Eosinophils % 2.1 %; Hematocrit 26.1 % (42.0-52.0); Hemoglobin 7.7 g/dL (11.7-16.6); Lymphocytes # 1.7 10^3/uL (0.8-4.8); Lymphocytes % 16.8 %; Mean Corpuscular HGB Conc 29.5 g/dL (30.0-36.0); Mean Corpuscular Hemoglobin 25.4 pg (28.0-34.0); Mean Corpuscular Volume 86.1 fL (80-94); Mean Platelet Volume 10.4 fL (7.4-10.4); Monocytes # 0.9 10^3/uL (0.2-0.9); Monocytes % 9.1 %; Neutrophils # 7.07 10^3/uL (1.8-7.7); Neutrophils % 70.9 %; Nucleated Red Blood Cells % 0 %; Platelet Count 271 10^3/cmm (130-400); Red Blood Count 3.03 10^6/uL (4.1-5.3); Red Cell Distribution Width 14.3 % (12.1-15.1)
[2020-02-14 05:49] LABS: Anion Gap 16.9 (5-19); Blood Urea Nitrogen 49 mg/dL (8-23); Calcium 8.5 mg/dL (8.5-10.5); Carbon Dioxide 20 mmol/L (22-29); Chloride 97 mmol/L (98-107); Glucose 380 mg/dL (65-115); Osmolality Calculated 282 mOsm/kg (285-295); Potassium 4.9 mmol/L (3.5-5.1); Sodium 129 mmol/L (136-145)
[2020-02-14] MEDS: isosorbide mononitrate ER 60 mg Tablet PO (06:11)
[2020-02-14 06:17] LABS: Glucose Point of Care 405 mg/dL (70-110)
--- NOTE | 2020-02-14 08:01 | DCPLANNER ---
Pg 2 of IM updated and reviewed with pt. No questions, copy provided.
[2020-02-14] MEDS: amiodarone 200 mg Tablet 400 MG PO ×2 (08:10→17:05)
[2020-02-14] MEDS: pantoprazole DR 40 mg Tablet PO (08:10)
[2020-02-14] MEDS: gabapentin 400 mg Capsule PO (08:10)
[2020-02-14] MEDS: aspirin 81 mg EC Tablet PO (08:10)
[2020-02-14] MEDS: metoprolol tartrate 25 mg Tablet PO ×2 (08:10→17:06)
[2020-02-14] MEDS: atorvastatin 40 mg Tablet 20 MG PO (08:11)
[2020-02-14] MEDS: amlodipine 5 mg Tablet 10 MG PO (08:11)
[2020-02-14] MEDS: metoprolol tartrate 50 mg Tablet PO ×2 (08:11→17:05)
--- NOTE | 2020-02-14 08:49 | PM.PN ---
Subjective Subjective: Interval history: Patient is feeling okay. The shortness of breath is improving. Denies any chest pain or palpitations. Telemetry shows sinus rhythm. No new arrhythmias. Medications: Reviewed: Yes Medication Review Details: Current Medications Acetaminophen (Tylenol) 650 mg PO Q6H PRN PRN Reason: Mild/Mod Pain Or Temp >/= 101 Hydrocodone Bitart/Acetaminophen ([place] 5-325 Mg) 1 tab PO Q4H PRN PRN Reason: MODERATE TO SEVERE PAIN Last Admin: 02/12/20 05:27 Dose: 1 tab Documented by: Albuterol/Ipratropium (Duoneb) 3 ml INHALATION Q4H PRN PRN Reason: SHORTNESS OF BREATH Amiodarone HCl (Cordarone) 400 mg PO BID [facility] Last Admin: 02/14/20 08:10 Dose: 400 mg Documented by: Amlodipine Besylate (Norvasc) 10 mg PO DAILY [facility] Last Admin: 02/14/20 08:11 Dose: 10 mg Documented by: Aspirin (Aspirin Ec) 81 mg PO DAILY [facility] Last Admin: 02/14/20 08:10 Dose: 81 mg Documented by: Atorvastatin Calcium (Lipitor) 20 mg PO DAILY [facility] Last Admin: 02/14/20 08:11 Dose: 20 mg Documented by: Benzonatate (Tessalon Pearls) 100 mg PO TID PRN PRN Reason: COUGH Last Admin: 02/12/20 17:29 Dose: 100 mg Documented by: Dextrose (D50w) 25 ml IVP ONCE PRN; Protocol PRN Reason: hypoglycemia protocol Dextrose (D50w) 50 ml IVP PRN PRN; Protocol PRN Reason: hypoglycemia protocol Gabapentin (Neurontin) 400 mg PO DAILY [facility] Last Admin: 02/14/20 08:10 Dose: 400 mg Documented by: Glucagon (Glucagen) 1 mg IM ONCE PRN; Protocol PRN Reason: Adult Acute Hypoglycemia Prot. Heparin Sodium (Beef Lung) (Heparin) 5,000 unit SUBCUT Q12H [facility] Last Admin: 02/14/20 01:31 Dose: 5,000 unit Documented by: Dextrose (D5w) 500 mls @ 100 mls/hr IV ONCE PRN; Protocol PRN Reason: Adult Acute Hypoglycemia Prot Insulin Aspart (Novolog) 0 unit SUBCUT BEDTIME [facility]; Protocol Last Admin: 02/13/20 20:34 Dose: 6 unit Documented by: Insulin Aspart (Novolog) 0 unit SUBCUT WM&BEDTIME [facility]; Protocol Last Admin: 02/14/20 07:33 Dose: 16 unit Documented by: Isosorbide Mononitrate (Imdur) 60 mg PO QAM [facility] Last Admin: 02/14/20 06:11 Dose: 60 mg Documented by: Metoprolol Tartrate (Lopressor) 25 mg PO BID [facility] Last Admin: 02/14/20 08:10 Dose: 25 mg Documented by: Metoprolol Tartrate (Lopressor) 50 mg PO BID [facility] Last Admin: 02/14/20 08:11 Dose: 50 mg Documented by: Morphine Sulfate (Morphine) 2 mg IVP Q4H PRN PRN Reason: SEVERE PAIN Ondansetron HCl (Zofran) 4 mg PO Q8H PRN PRN Reason: NAUSEA Ondansetron HCl (Zofran) 4 mg IVP Q6H PRN PRN Reason: NAUSEA AND VOMITING Last Admin: 02/12/20 01:01 Dose: 4 mg Documented by: Pantoprazole Sodium (Protonix) 40 mg PO DAILY [facility] Last Admin: 02/14/20 08:10 Dose: 40 mg Documented by: Vitals/I&O/Wt Last Vital Signs Temp 97.8 F 02/14/20 07:38 Pulse 70 02/14/20 07:45 Resp 16 02/14/20 07:45 BP 130/67 02/14/20 07:38 Pulse Ox 91 02/14/20 07:45 02/13/20 02/14/20 02/14/20 22:59 06:59 14:59 Intake Total 118 / 680 480 / 1160 340 / 340 Output Total 330 / 430 275 / 705 Balance -212 / 250 205 / 455 340 / 340 Weight last 48 hrs Weight 196 lb 8 oz Weight 190 lb 14.4 oz Physical Exam Narrative: EXAM NARRATIVE: GENERAL: The patient is alert and oriented times X2. Not in any acute distress. HEENT: No significant pallor, icterus or lymphadenopathy. The pupils are equal in size. Oral cavity: There are no mucous membrane lesions. NECK: Trachea appears to be central. No masses noted. No JVD or thyromegaly appreciated. No carotid bruit. RESPIRATORY: Breath sounds are bilaterally with no rales or rhonchi. Intensity the breath sounds are slightly diminished in the bases. BREASTS: Deferred. HEART: The PMI could not be palpated. No other palpable precordial events. First heart sound is variable. Second heart sound is normal. No S3. Short systolic murmur in the left sternal border. No diastolic murmurs. No pericardial rub. ABDOMEN: No vessel pulsations or distention. No tenderness. No organomegaly appreciated. No abdominal bruit. Bowel sounds are normally heard. : Deferred. RECTAL: Deferred. LYMPHATIC: No lymphadenopathy noted in the neck or groin. EXTREMITIES: No significant edema or cyanosis. Peripheral pulses are palpable but weak bilaterally . MUSCULOSKELETAL: No acute joint deformities or swelling SKIN: There are no significant scars or skin rash noted. NEUROPSYCHIATRIC: The patient is alert and oriented x2. Appears to be in a good mood. No focal motor deficits. No rigidity or tremors noted. Data : 02/15/20 04:09 02/15/20 04:09 A&P Assessment and plan (1) Atrial fibrillation with rapid ventricular response: Patient may be continued on the amiodarone and the metoprolol. Because the patient's anemia, and the chronic renal disease, he carries a high risk for bleeding. Status: Acute (2) Acute on chronic diastolic (congestive) heart failure: Currently the heart failure is compensated. May continue on the current medications. Status: Acute (3) Benign essential hypertension with target blood pressure below 140/90: Currently he is normotensive. We will continue to monitor his blood pressure closely. Status: Chronic (4) GI bleeding: Patient has a history of GI bleed and anemia. For this reason, he was taken off the oral anticoagulants. He is currently only on baby aspirin. Hemoglobin seems slowly dropping again. This needs to be further looked into. Status: Acute Qualifiers: GI bleed type/associated pathology: unspecified gastrointestinal hemorrhage type Qualified Code(s): K92.2 - Gastrointestinal hemorrhage, unspecified (5) Dyslipidemia: Continue on the current management. Follow-up evaluation as scheduled. Status: Acute (6) Diabetes mellitus: Patient requires close monitoring of his blood sugar. Status: Acute Qualifiers: Diabetes mellitus complication status: with hyperglycemia Diabetes mellitus parts counterman insulin use: without parts counterman use Diabetes mellitus type: type 2 Qualified Code(s): E11.65 - Type 2 diabetes mellitus with hyperglycemia (7) Chronic anemia: Etiology of anemia, could be related to GI bleed . Because of the drop in the hemoglobin, consider blood transfusion/GI work-up Status: Acute (8) Chronic kidney disease: The kidney function seems to be fairly stable at this point Status: Chronic Qualifiers: Chronic kidney disease stage: stage 3 (moderate) Qualified Code(s): N18.3 - Chronic kidney disease, stage 3 (moderate) Additional A&P Information Patient may be continued on the current dose of amiodarone for total of 7 days followed by 400 mg daily for 7 days followed by 200 mg p.o. daily May continue on the current measures. Disposition as per the primary Attestations Medical Necessity Statement*: Disposition as per the primary. Coding Level of Care Code Acute Sheep Rancher for [facility] Fwd Diagnoses Atrial fibrillation with rapid ventricular response I48.91 Acute on chronic diastolic (congestive) heart failure I50.33 Benign essential hypertension with target blood pressure below 140/90 I10 GI bleeding K92.2 GI bleed type/associated pathology: unspecified gastrointestinal hemorrhage type Dyslipidemia E78.5 Diabetes mellitus E11.65 Diabetes mellitus complication status: with hyperglycemia Diabetes mellitus parts counterman insulin use: without parts counterman use Diabetes mellitus type: type 2 Chronic anemia D64.9 Chronic kidney disease N18.3 Chronic kidney disease stage: stage 3 (moderate)
[2020-02-14 11:27] LABS: Glucose Point of Care 315 mg/dL (70-110)
--- NOTE | 2020-02-14 14:08 | PM.PN ---
Subjective Subjective: Interval history: Chart reviewed, had 475 mL urine output overnight, hemodynamically stable, rate controlled, on room air, drop in hemoglobin from 8.0-7.7, will repeat in p.m. in case of need for transfusion if continued drop. Reviewed therapy notes with noted benefit from continued skilled therapy so we will order home health. Noted continued drop in hemoglobin, will transfuse 1 unit of PRBCs. Explained this to patient particularly as he was quite eager to be discharged home today. Understands the need for transfusion and follow-up check on hemoglobin. Continues to be quite hyperglycemic, will escalate ISS to high-dose. Medications: Reviewed: Yes Medication Review Details: Active Medications Generic Name Dose Route Start Last Admin Trade Name Freq PRN Reason Stop Dose Admin Acetaminophen 650 mg 02/11/20 12:18 Tylenol PO Q6H PRN Mild/Mod Pain Or Temp >/= 101 Hydrocodone Bitart /Acetaminophen 1 tab 02/11/20 12:18 02/12/20 05:27 Rugby 5-325 Mg PO 1 tab Q4H PRN Administration MODERATE TO SEVER E PAIN Albuterol/Ipratrop ium 3 ml 02/13/20 10:39 Duoneb INHALATION Q4H PRN SHORTNESS OF FRENIE TH Amiodarone HCl 400 mg 02/11/20 16:00 02/14/20 08:10 Cordarone PO 400 mg BID DEBBIE Administration Amlodipine Besylat e 10 mg 02/12/20 09:00 02/14/20 08:11 Norvasc PO 10 mg DAILY DEBBIE Administration Aspirin 81 mg 02/12/20 09:00 02/14/20 08:10 Aspirin Ec PO 81 mg DAILY DEBBIE Administration Atorvastatin Calci um 20 mg 02/12/20 09:00 02/14/20 08:11 Lipitor PO 20 mg DAILY DEBBIE Administration Benzonatate 100 mg 02/12/20 14:08 02/12/20 17:29 Tessalon Pearls PO 100 mg TID PRN Administration COUGH Dextrose 25 ml 02/11/20 13:39 D50w IVP ONCE PRN hypoglycemia prot ocol Protocol Dextrose 50 ml 02/11/20 13:39 D50w IVP PRN PRN hypoglycemia prot ocol Protocol Gabapentin 400 mg 02/12/20 09:00 02/14/20 08:10 Neurontin PO 400 mg DAILY DEBBIE Administration Glucagon 1 mg 02/11/20 13:39 Glucagen IM ONCE PRN Adult Acute Hypog lycemia Prot. Protocol Heparin Sodium (Be ef Lung) 5,000 unit 02/13/20 13:30 02/14/20 01:31 Heparin SUBCUT 5,000 unit Q12H DEBBIE Administration Dextrose 500 mls @ 100 mls /hr 02/11/20 13:39 D5w IV ONCE PRN Adult Acute Hypog lycemia Prot Protocol Insulin Aspart 0 unit 02/11/20 21:00 02/13/20 20:34 Novolog SUBCUT 6 unit BEDTIME DEBBIE Administration Protocol Insulin Aspart 0 unit 02/13/20 18:00 02/14/20 12:00 Novolog SUBCUT 12 unit WM&BEDTIME DEBBIE Administration Protocol Isosorbide Mononit rate 60 mg 02/12/20 06:00 02/14/20 06:11 Imdur PO 60 mg QAM DEBBIE Administration Metoprolol Tartrat e 25 mg 02/11/20 18:00 02/14/20 08:10 Lopressor PO 25 mg BID DEBBIE Administration Metoprolol Tartrat e 50 mg 02/11/20 18:00 02/14/20 08:11 Lopressor PO 50 mg BID DEBBIE Administration Morphine Sulfate 2 mg 02/11/20 12:18 Morphine IVP Q4H PRN SEVERE PAIN Ondansetron HCl 4 mg 02/11/20 12:18 Zofran PO Q8H PRN NAUSEA Ondansetron HCl 4 mg 02/12/20 00:53 02/12/20 01:01 Zofran IVP 4 mg Q6H PRN Administration NAUSEA AND VOMITI NG Pantoprazole Sodiu m 40 mg 02/12/20 16:05 02/14/20 08:10 Protonix PO 40 mg DAILY DEBBIE Administration lisinopril Allergy (Verified 08/01/19 08:55) Unknown Vitals/I&O/Wt Last Vital Signs Temp 97.8 F 02/14/20 11:59 Pulse 68 02/14/20 12:00 Resp 15 02/14/20 11:59 BP 121/72 02/14/20 11:59 Pulse Ox 95 02/14/20 11:59 02/13/20 02/14/20 02/14/20 22:59 06:59 14:59 Intake Total 118 / 680 480 / 1160 700 / 700 Output Total 330 / 430 275 / 705 Balance -212 / 250 205 / 455 700 / 700 Weight last 48 hrs Weight 89.131 kg Weight 86.591 kg Physical Exam Const: COMMON NORMALS: no acute distress and patient oriented x3 GENERAL APPEARANCE: cooperative and comfortable ORIENTATION/CONSCIOUSNESS: Yes awake HENMT: COMMON NORMALS: normocephalic, atraumatic, hearing grossly normal bilaterally and moist oral mucous membranes HEAD & SCALP: normocephalic and atraumatic Eye: COMMON NORMALS: Equal, round and reactive pupils present, EOMs intact bilaterally and conjunctivae normal CONJUNCTIVA: Yes conjunctivae normal PUPIL: Yes Equal, round and reactive pupils present Neck/C-Spine: COMMON NORMALS: full ROM GENERAL: Yes normal visual inspection and Yes trachea midline Resp: COMMON NORMALS: normal respiratory effort, No retractions, No use of accessory muscles and clear to auscultation bilaterally EFFORT & INSPECTION: Yes able to speak in complete sentences, Yes symmetric chest movement and No tachypneic AUSCULTATION: clear to auscultation bilaterally Cardio: COMMON NORMALS: regular rate, regular rhythm, S1 normal heart sound present, S2 normal heart sound present and No murmurs present (Cardio) RATE: regular rate RHYTHM: regular rhythm HEART SOUNDS: S1 normal heart sound present and S2 normal heart sound present GI: COMMON NORMALS: Normal to inspection, nondistended, normoactive bowel sounds present, Soft to palpation and non-tender PALPATION: Yes Soft to palpation Extremity: COMMON NORMALS: normal to inspection, full ROM and no clubbing, cyanosis or edema; negative for no pedal edema Neuro: COMMON NORMALS: patient oriented x3, moves all extremities, no focal motor deficits, no sensory deficits noted and gait normal Psych: COMMON NORMALS: mental status grossly normal, Normal thought process present, cooperative, normal affect and speech normal SPEECH: Yes normal speech THOUGHT PROCESS: Normal thought process present Skin: COMMON NORMALS: no rashes or lesions noted, no jaundice, no petechiae and no mottling GENERAL SKIN EXAM: no rashes or lesions noted Data : 02/14/20 14:13 02/14/20 04:41 A&P Assessment and plan (1) Atrial fibrillation with rapid ventricular response: -Currently rate controlled, continue telemetry monitoring -Vital signs stable, continue to monitor -On amiodarone and metoprolol; continue amiodarone 400 mg twice daily x7 days-> 400 mg daily x 7 days->200 mg daily -Appreciate cardiology evaluation by Dr. Orlando -Echo noted with ejection fraction of 45 to 50%, diffuse left ventricular hypokinesis -Not a good candidate for anticoagulation given history of GI bleed and acutely worsening anemia Status: Acute (2) Ventricular tachycardia: -Noted run of VArleen tach on telemetry -Had previously been on sotalol then switched to amiodarone, no further episodes noted on telemetry Status: Resolved (3) Cough: -No indication of infection on chest x-ray; reported as mild right mid basilar sub-segmental atelectasis -On Tessalon Perles and Neb treatments as needed -Given persistence and dry quality likely secondary to bronchitis Status: Acute (4) Chronic kidney disease: -Renal function currently appears to be close to baseline -Baseline creatinine is around 1.6-2.0 Status: Chronic Qualifiers: Chronic kidney disease stage: stage 3 (moderate) Qualified Code(s): N18.3 - Chronic kidney disease, stage 3 (moderate) (5) Chronic anemia: -Appears to be acutely worsening -Previous baseline is around 10 -Repeat H&H this afternoon in case of need for transfusion if continued drop -Close monitoring of hemoglobin -Has reported prior history of GI bleed; pending FOBT -We will likely need GI work-up, question of inpatient versus outpatient evaluation based on trend in hemoglobin Status: Acute (6) Benign essential hypertension with target blood pressure below 140/90: -Normotensive, continue monitoring of vital signs -Continue oral antihypertensives Status: Chronic (7) Acute on chronic diastolic (congestive) heart failure: -Appears to be better compensated in terms of overall volume status -Echo as reported above with ejection fraction of 45 to 50% -on Lasix as needed for now Status: Acute (8) Dementia: -Reported history of Lewy body dementia -Reorient as needed Status: Chronic Qualifiers: Dementia behavioral disturbance: without behavioral disturbance Dementia type: Lewy body dementia Qualified Code(s): G31.83 - Dementia with Lewy bodies; F02.80 - Dementia in other diseases classified elsewhere without behavioral disturbance (9) Diabetes mellitus: -Poorly controlled based on A1c of 11.4 in January -Accu-Cheks, hypoglycemia precautions, ISS -Glipizide on hold -cardiac consistent carb diet as tolerated Status: Acute Qualifiers: Diabetes mellitus complication status: with hyperglycemia Diabetes mellitus learning administrator insulin use: without learning administrator use Diabetes mellitus type: type 2 Qualified Code(s): E11.65 - Type 2 diabetes mellitus with hyperglycemia Additional A&P Information -Physical deconditioning: Has been working with therapy with recommendation made for continued skilled therapy. Prior discussion on alternative disposition patient declining SNF placement. We will plan on discharge home with home health services -DVT ppx with heparin; hold this due to acutely worsening anemia -Dispo: home with services -Code status: FULL code Attestations Medical Necessity Statement*: Patient requires hospitalization for continued management of acutely worsening anemia requiring transfusion of blood products, continued monitoring of renal function. Time Spent in Patient Care: Greater than 35 minutes (>than 50% of time spent in counselling and/or direct pt care on unit). Coding Level of Care Code Acute Centrifugal Drier Operator for g Fwd Exam Comprehensive Diagnoses Atrial fibrillation with rapid ventricular response I48.91 Ventricular tachycardia I47.2 Cough R05 Chronic kidney disease N18.3 Chronic kidney disease stage: stage 3 (moderate) Chronic anemia D64.9 Benign essential hypertension with target blood pressure below 140/90 I10 Acute on chronic diastolic (congestive) heart failure I50.33 Dementia G31.83; F02.80 Dementia behavioral disturbance: without behavioral disturbance Dementia type: Lewy body dementia Diabetes mellitus E11.65 Diabetes mellitus complication status: with hyperglycemia Diabetes mellitus learning administrator insulin use: without half-way use Diabetes mellitus type: type 2
[2020-02-14 14:33] LABS: Hematocrit 24.5 % (42.0-52.0); Hemoglobin 7.5 g/dL (11.7-16.6)
[2020-02-14] MEDS: sodium chloride 0.9% (100 ml) 100 ML (16:57)
[2020-02-14 17:14] LABS: Glucose Point of Care 482 mg/dL (70-110)
[2020-02-14 18:31] LABS: Glucose Point of Care 436 mg/dL (70-110)
[2020-02-14 18:32] LABS: Glucose Point of Care 382 mg/dL (70-110)
--- NOTE | 2020-02-14 19:18 | PC.NURSE ---
DRIVER MEDIC went to do rounding and vitals on pt. While in room, pt stated he wanted her body and wanted to screw her. DRIVER MEDIC informed pt that this was inappropriate.
--- NOTE | 2020-02-14 19:46 | PC.NURSE ---
Rounding: Patient sitting up to chair receiving blood transfusion. Patient is alert and oriented x3. Patient denies any pain. Patient is in regular clothes Will continue to monitor.
[2020-02-14 20:38] LABS: Glucose Point of Care 278 mg/dL (70-110)
--- NOTE | 2020-02-14 20:50 | PC.NURSE ---
Dr. Mckeon called regarding patient having two sliding scales for bedtime. Order to use moderate sliding scale. Read back verbal order.
--- NOTE | 2020-02-14 21:08 | PC.NURSE ---
Patient assisted to the bathroom. Refused to use a urinal. Has his normal clothes on, shoes on. Patient stated he hopes he can leave tomorrow. He called he a [employer] dum dum when he made a comment on how he already had his clothes on and was ready. Will continue to monitor.
[2020-02-15] VITALS: BP 136/64; PULSE 64; RESP 23; O2SAT 92
[2020-02-15 02:29] VITALS: PULSE 66; RESP 18; O2SAT 93
[2020-02-15 03:36] VITALS: BP 151/64; PULSE 66; RESP 17; TEMP 36.4; O2SAT 94
[2020-02-15 04:41] LABS: Basophils % 0.5 %; Eosinophils # 0.2 10^3/uL (0.0-0.8); Eosinophils % 1.9 %; Hematocrit 29.1 % (42.0-52.0); Hemoglobin 8.7 g/dL (11.7-16.6); Lymphocytes # 1.2 10^3/uL (0.8-4.8); Lymphocytes % 13.7 %; Mean Corpuscular HGB Conc 29.9 g/dL (30.0-36.0); Mean Corpuscular Hemoglobin 25.7 pg (28.0-34.0); Mean Corpuscular Volume 85.8 fL (80-94); Mean Platelet Volume 10.4 fL (7.4-10.4); Neutrophils # 6.37 10^3/uL (1.8-7.7); Neutrophils % 72.3 %; Nucleated Red Blood Cells % 0 %; Platelet Count 247 10^3/cmm (130-400); Red Blood Count 3.39 10^6/uL (4.1-5.3); Red Cell Distribution Width 14.6 % (12.1-15.1); White Blood Count 8.8 10^3/uL (4.0-10.0)
[2020-02-15 05:14] LABS: Anion Gap 15.5 (5-19); Blood Urea Nitrogen 48 mg/dL (8-23); Calcium 8.8 mg/dL (8.5-10.5); Carbon Dioxide 20 mmol/L (22-29); Chloride 101 mmol/L (98-107); Glucose 279 mg/dL (65-115); Osmolality Calculated 282 mOsm/kg (285-295); Potassium 4.5 mmol/L (3.5-5.1); Sodium 132 mmol/L (136-145)
[2020-02-15] MEDS: isosorbide mononitrate ER 60 mg Tablet PO (05:14)
[2020-02-15 06:10] LABS: Glucose Point of Care 317 mg/dL (70-110)
--- NOTE | 2020-02-15 07:12 | PC.NURSE ---
PATIENT NOTED TO HAVE TWO SEPARATE ORDERS FOR METOPROLOL, ONE FOR 25 MG AND ONE FOR 50MG. DISCUSSED WITH DR. MOY AND WAS ORDERED TO STOP THE 25MG DOSE.
[2020-02-15 07:39] VITALS: BP 126/91; PULSE 114; RESP 18; TEMP 36.9; O2SAT 93
[2020-02-15] MEDS: atorvastatin 40 mg Tablet 20 MG PO (08:38)
[2020-02-15] MEDS: pantoprazole DR 40 mg Tablet PO (08:38)
[2020-02-15] MEDS: amiodarone 200 mg Tablet 400 MG PO (08:38)
[2020-02-15] MEDS: amlodipine 5 mg Tablet 10 MG PO (08:38)
[2020-02-15] MEDS: metoprolol tartrate 50 mg Tablet PO (08:38)
[2020-02-15] MEDS: gabapentin 400 mg Capsule PO (08:38)
[2020-02-15] MEDS: aspirin 81 mg EC Tablet PO (08:38)
--- NOTE | 2020-02-15 08:46 | P.PN_ITS ---
Subjective Subjective: Interval history: Patient to be doing okay. He received 1 unit of blood transfusion yesterday. The hemoglobin is up today to 8.7. He denies any chest pain or any unusual shortness of breath. He was staying mostly in sinus rhythm yesterday. This morning he went back into fibrillation. The heart rate is around 107. He denies any other specific complaints at this time. Complains of feeling tired. Medications: Reviewed: Yes Medication Review Details: Current Medications Acetaminophen (Tylenol) 650 mg PO Q6H PRN PRN Reason: Mild/Mod Pain Or Temp >/= 101 Hydrocodone Bitart/Acetaminophen ([place] 5-325 Mg) 1 tab PO Q4H PRN PRN Reason: MODERATE TO SEVERE PAIN Last Admin: 02/12/20 05:27 Dose: 1 tab Documented by: Albuterol/Ipratropium (Duoneb) 3 ml INHALATION Q4H PRN PRN Reason: SHORTNESS OF BREATH Amiodarone HCl (Cordarone) 400 mg PO BID [facility] Last Admin: 02/15/20 08:38 Dose: 400 mg Documented by: Amlodipine Besylate (Norvasc) 10 mg PO DAILY [facility] Last Admin: 02/15/20 08:38 Dose: 10 mg Documented by: Aspirin (Aspirin Ec) 81 mg PO DAILY [facility] Last Admin: 02/15/20 08:38 Dose: 81 mg Documented by: Atorvastatin Calcium (Lipitor) 20 mg PO DAILY [facility] Last Admin: 02/15/20 08:38 Dose: 20 mg Documented by: Benzonatate (Tessalon Pearls) 100 mg PO TID PRN PRN Reason: COUGH Last Admin: 02/12/20 17:29 Dose: 100 mg Documented by: Dextrose (D50w) 25 ml IVP ONCE PRN; Protocol PRN Reason: hypoglycemia protocol Dextrose (D50w) 50 ml IVP PRN PRN; Protocol PRN Reason: hypoglycemia protocol Gabapentin (Neurontin) 400 mg PO DAILY [facility] Last Admin: 02/15/20 08:38 Dose: 400 mg Documented by: Glucagon (Glucagen) 1 mg IM ONCE PRN; Protocol PRN Reason: Adult Acute Hypoglycemia Prot. Heparin Sodium (Beef Lung) (Heparin) 5,000 unit SUBCUT Q12H [facility] Last Admin: 02/14/20 01:31 Dose: 5,000 unit Documented by: Dextrose (D5w) 500 mls @ 100 mls/hr IV ONCE PRN; Protocol PRN Reason: Adult Acute Hypoglycemia Prot Insulin Aspart (Novolog) 0 unit SUBCUT BEDTIME [facility]; Protocol Last Admin: 02/14/20 20:55 Dose: Not Given Documented by: Insulin Aspart (Novolog) 0 unit SUBCUT WM&BEDTIME [facility]; Protocol Last Admin: 02/15/20 08:37 Dose: 14 unit Documented by: Isosorbide Mononitrate (Imdur) 60 mg PO QAM [facility] Last Admin: 02/15/20 05:14 Dose: 60 mg Documented by: Metoprolol Tartrate (Lopressor) 50 mg PO BID [facility] Last Admin: 02/15/20 08:38 Dose: 50 mg Documented by: Morphine Sulfate (Morphine) 2 mg IVP Q4H PRN PRN Reason: SEVERE PAIN Ondansetron HCl (Zofran) 4 mg PO Q8H PRN PRN Reason: NAUSEA Ondansetron HCl (Zofran) 4 mg IVP Q6H PRN PRN Reason: NAUSEA AND VOMITING Last Admin: 02/12/20 01:01 Dose: 4 mg Documented by: Pantoprazole Sodium (Protonix) 40 mg PO DAILY [facility] Last Admin: 02/15/20 08:38 Dose: 40 mg Documented by: Vitals/I&O/Wt Last Vital Signs Temp 98.4 F 02/15/20 07:39 Pulse 114 H 02/15/20 07:39 Resp 18 02/15/20 07:39 BP 126/91 02/15/20 07:39 Pulse Ox 93 02/15/20 07:39 02/14/20 02/15/20 02/15/20 22:59 06:59 14:59 Intake Total 0 / 700 440 / 1140 360 / 360 Output Total 150 / 150 Balance -150 / 550 440 / 990 360 / 360 Weight last 48 hrs Weight 196 lb Weight 196 lb 8 oz Physical Exam Narrative: EXAM NARRATIVE: GENERAL: The patient is alert and oriented times X2. . Not in any acute distress. HEENT: Mild pallor, icterus or lymphadenopathy. The pupils are equal in size. Oral cavity: There are no mucous membrane lesions. NECK: Trachea appears to be central. No masses noted. No JVD or thyromegaly appreciated. No carotid bruit. RESPIRATORY: Breath sounds are bilaterally with no rales or rhonchi. Intensity the breath sounds are slightly diminished in the bases. BREASTS: Deferred. HEART: The PMI could not be palpated. No other palpable precordial events. First heart sound is variable. Second heart sound is normal. No S3. Short systolic murmur in the left sternal border. No diastolic murmurs. No pericardial rub. ABDOMEN: No vessel pulsations or distention. No tenderness. No organomegaly appreciated. No abdominal bruit. Bowel sounds are normally heard. : Deferred. RECTAL: Deferred. LYMPHATIC: No lymphadenopathy noted in the neck or groin. EXTREMITIES: No significant edema or cyanosis. Peripheral pulses are palpable but weak bilaterally . MUSCULOSKELETAL: No acute joint deformities or swelling SKIN: There are no significant scars or skin rash noted. NEUROPSYCHIATRIC: The patient is alert and oriented x2. Appears to be in a good mood. No focal motor deficits. No rigidity or tremors noted. Data : 02/15/20 04:09 02/15/20 04:09 Other Labs: Laboratory Last Values WBC 8.8 10^3/uL (4.0-10.0) 02/15/20 04:09 RBC 3.39 10^6/uL (4.1-5.3) L 02/15/20 04:09 Hgb 8.7 g/dL (11.7-16.6) L 02/15/20 04:09 Hct 29.1 % (42.0-52.0) L 02/15/20 04:09 MCV 85.8 fL (80-94) 02/15/20 04:09 MCH 25.7 pg (28.0-34.0) L 02/15/20 04:09 MCHC 29.9 g/dL (30.0-36.0) L 02/15/20 04:09 RDW 14.6 % (12.1-15.1) 02/15/20 04:09 Plt Count 247 10^3/cmm (130-400) 02/15/20 04:09 MPV 10.4 fL (7.4-10.4) 02/15/20 04:09 Neut % (Auto) 72.3 % 02/15/20 04:09 Lymph % (Auto) 13.7 % 02/15/20 04:09 Island % (Auto) 11.0 % 02/15/20 04:09 Eos % (Auto) 1.9 % 02/15/20 04:09 Baso % (Auto) 0.5 % 02/15/20 04:09 Neut # (Auto) 6.37 10^3/uL (1.8-7.7) 02/15/20 04:09 Lymph # (Auto) 1.2 10^3/uL (0.8-4.8) 02/15/20 04:09 Island # (Auto) 1.0 10^3/uL (0.2-0.9) H 02/15/20 04:09 Eos # (Auto) 0.2 10^3/uL (0.0-0.8) 02/15/20 04:09 Baso # (Auto) 0.0 10^3/uL (0.0-0.1) 02/15/20 04:09 Nucleated RBC % (auto) 0 % 02/15/20 04:09 Nucleated RBCs # 0.0 /100WBC 02/15/20 04:09 Sodium 132 mmol/L (136-145) L 02/15/20 04:09 Potassium 4.5 mmol/L (3.5-5.1) 02/15/20 04:09 Chloride 101 mmol/L (98-107) 02/15/20 04:09 Carbon Dioxide 20 mmol/L (22-29) L 02/15/20 04:09 Anion Gap 15.5 (5-19) 02/15/20 04:09 BUN 48 mg/dL (8-23) H 02/15/20 04:09 Creatinine 2.1 mg/dL (0.7-1.2) H 02/15/20 04:09 GFR Calculation Not Reportable 02/15/20 04:09 Glucose 279 mg/dL (65-115) H 02/15/20 04:09 POC Glucose 317 mg/dL (70-110) 02/15/20 06:03 Estimat Average Glucose 280 02/11/20 09:25 Hemoglobin A1c 11.4 % (4.0-6.0) H 02/11/20 09:25 Calculated Osmolality 282 mOsm/kg (285-295) L 02/15/20 04:09 Calcium 8.8 mg/dL (8.5-10.5) 02/15/20 04:09 Phosphorus 3.2 mg/dL (2.5-4.5) 02/11/20 11:25 Magnesium 2.2 mg/dL (1.7-2.3) 02/13/20 05:08 Iron 16 ug/dL (59-158) L 02/11/20 09:25 TIBC 318 mcg/dl 02/11/20 09:25 % Saturation 5.0 % (20-50) L 02/11/20 09:25 Unsat Iron Binding 302 ug/dL (112-347) 02/11/20 09:25 Total Bilirubin 0.2 mg/dL (0.15-1.2) 02/11/20 09:25 AST 33 U/L (0-40) 02/11/20 09:25 ALT 50 U/L (0-41) H 02/11/20 09:25 Alkaline Phosphatase 121 IU/L (40-130) 02/11/20 09:25 Troponin T Baseline 50 ng/L (0-15) H 02/11/20 09:25 Troponin T 120 Minute 49.16 ng/L (0-15) H 02/11/20 11:25 Delta Troponin T -0.84 ABS# (0-10) L 02/11/20 11:25 Troponin T Hi Sens 6Hr 51.46 ng/L (0-15) H 02/11/20 15:40 Troponin T Hi Sens 6Hr Delta 1.46 ng/L (0-12) 02/11/20 15:40 NT-Pro-B Natriuret Pep 2061 pg/mL (0-450) H 02/11/20 09:25 Total Protein 6.7 g/dL (6.6-8.7) 02/11/20 09:25 Albumin 3.6 g/dL (3.5-5.2) 02/11/20 09:25 Globulin 3.1 g/dL (1.3-4.6) 02/11/20 09:25 Triglycerides 502 mg/dL (0-150) H 02/12/20 04:34 Cholesterol 147 mg/dL (0-200) 02/12/20 04:34 LDL Cholesterol Direct 53 mg/dL (0-100) 02/12/20 04:34 LDL Cholesterol, Calc Not Reportable 02/12/20 04:34 HDL Cholesterol 35 mg/dL (60-100) L 02/12/20 04:34 LDL/HDL Ratio Not Reportable 02/12/20 04:34 Cholesterol/HDL Ratio 4.20 mg/dL (1.0-5.00) 02/12/20 04:34 TSH 5.74 uIU/mL (0.27-4.20) H 02/11/20 11:25 Free T4 1.01 ng/dL (0.82-1.77) 02/11/20 09:25 Blood Type A Positive 02/14/20 14:13 Rho(D) Type Positive 02/14/20 14:13 Antibody Screen Negative 02/14/20 14:13 Crossmatch See Detail 02/14/20 14:13 Micro: Microbiology 02/14/20 16:45 Occult Blood (FIT) - Final Stool A&P Assessment and plan (1) Atrial fibrillation with rapid ventricular response: Patient may be continued on the amiodarone and the metoprolol. Because the patient's anemia, and the chronic renal disease, he carries a high risk for bleeding. The amiodarone schedule as mentioned below Status: Resolved (2) Acute on chronic diastolic (congestive) heart failure: Currently the heart failure is compensated. May continue on the current medications. It may be appropriate to keep him on a low-dose of Lasix 20 mg daily with potassium 10 mg p.o. daily Status: Acute (3) Benign essential hypertension with target blood pressure below 140/90: Currently he is normotensive. We will continue to monitor his blood pressure closely. Status: Chronic (4) GI bleeding: Patient has a history of GI bleed and anemia. For this reason, he was taken off the oral anticoagulants. He is currently only on baby aspirin. Status post blood transfusion. Because of the drop in the hemoglobin, may need to expedite the GI work-up. Discussed with the Dr. Hernandez. Status: Acute Qualifiers: GI bleed type/associated pathology: unspecified gastrointestinal hemorrhage type Qualified Code(s): K92.2 - Gastrointestinal hemorrhage, unspecified (5) Dyslipidemia: Continue on the current management. Follow-up evaluation as scheduled. Status: Acute (6) Diabetes mellitus: Patient requires close monitoring of his blood sugar. Status: Chronic Qualifiers: Diabetes mellitus complication status: with hyperglycemia Diabetes mellitus senior living insulin use: without long term care administrator use Diabetes mellitus type: type 2 Qualified Code(s): E11.65 - Type 2 diabetes mellitus with hyperglycemia (7) Chronic anemia: Etiology of anemia, could be related to GI bleed . Because of the drop in the hemoglobin, consider blood transfusion/GI work-up, may need to expedite. Status: Acute (8) Chronic kidney disease: The kidney function seems to be fairly stable at this point Status: Chronic Qualifiers: Chronic kidney disease stage: stage 3 (moderate) Qualified Code(s): N18.3 - Chronic kidney disease, stage 3 (moderate) Additional A&P Information If the patient continues remain stable, may be discharged home from a cardiac standpoint. Expedited the GI work-up, as per Dr. Dudley. I may see him in the office in 3 weeks. Attestations Medical Necessity Statement*: Disposition as per the primary Coding Level of Care Code Acute Remote Sensing Analyst for [facility] Fwd Diagnoses Atrial fibrillation with rapid ventricular response I48.91 Acute on chronic diastolic (congestive) heart failure I50.33 Benign essential hypertension with target blood pressure below 140/90 I10 GI bleeding K92.2 GI bleed type/associated pathology: unspecified gastrointestinal hemorrhage type Dyslipidemia E78.5 Diabetes mellitus E11.65 Diabetes mellitus complication status: with hyperglycemia Diabetes mellitus long term care administrator insulin use: without long term care administrator use Diabetes mellitus type: type 2 Chronic anemia D64.9 Chronic kidney disease N18.3 Chronic kidney disease stage: stage 3 (moderate)
--- NOTE | 2020-02-15 10:06 | PM.DCS ---
Discharge Providers Date of Admission: 02/11/20 12:18 Date of Discharge: February 15, 2020 Attending Provider at Admission: Keesha Arnold DO Attending Provider at Discharge: Donna Hernandez MD Consults: Cardiology, Dr. Orlando Primary Care Provider: Grover Brooks Diagnoses at Discharge Discharge Diagnosis (1) Atrial fibrillation with rapid ventricular response: Status: Resolved Problem details: -Currently rate controlled, continue telemetry monitoring -Vital signs stable, continue to monitor -On amiodarone and metoprolol; continue amiodarone 400 mg twice daily x7 days-> 400 mg daily x 7 days->200 mg daily -Appreciate cardiology evaluation by Dr. Orlando -Echo noted with ejection fraction of 45 to 50%, diffuse left ventricular hypokinesis -Not a good candidate for anticoagulation given history of GI bleed and acutely worsening anemia (2) Acute on chronic diastolic (congestive) heart failure: Status: Acute Problem details: -Appears to be better compensated in terms of overall volume status -Echo as reported above with ejection fraction of 45 to 50% -on Lasix as needed for now (3) Benign essential hypertension with target blood pressure below 140/90: Status: Chronic Problem details: -Normotensive, continue monitoring of vital signs -Continue oral antihypertensives (4) GI bleeding: Status: Acute Qualifiers: GI bleed type/associated pathology: unspecified gastrointestinal hemorrhage type Qualified Code(s): K92.2 - Gastrointestinal hemorrhage, unspecified (5) Dyslipidemia: Status: Acute (6) Diabetes mellitus: Status: Chronic Problem details: -Poorly controlled based on A1c of 11.4 in January -Accu-Cheks, hypoglycemia precautions, ISS -Glipizide on hold -cardiac consistent carb diet as tolerated Qualifiers: Diabetes mellitus complication status: with hyperglycemia Diabetes mellitus parts counterman insulin use: without assisted use Diabetes mellitus type: type 2 Qualified Code(s): E11.65 - Type 2 diabetes mellitus with hyperglycemia (7) Chronic anemia: Status: Acute Problem details: -Previous baseline is around 10 -received 1 unit of PRBCs with appropriate increase in Hg -request CBC to be drawn by on Friday -Has reported prior history of GI bleed; pending FOBT -We will likely need GI work-up, question of inpatient versus outpatient evaluation based on trend in hemoglobin (8) Chronic kidney disease: Status: Chronic Problem details: -Renal function currently appears to be close to baseline -Baseline creatinine is around 1.6-2.0 Qualifiers: Chronic kidney disease stage: stage 3 (moderate) Qualified Code(s): N18.3 - Chronic kidney disease, stage 3 (moderate) (9) Ventricular tachycardia: Status: Resolved Problem details: -Noted run of V. tach on telemetry -Had previously been on sotalol then switched to amiodarone, no further episodes noted on telemetry (10) Cough: Status: Acute Problem details: -No indication of infection on chest x-ray; reported as mild right mid basilar sub-segmental atelectasis -On Tessalon Perles and Neb treatments as needed -Given persistence and dry quality likely secondary to bronchitis (11) Dementia: Status: Chronic Problem details: -Reported history of Lewy body dementia -Reorient as needed Qualifiers: Dementia behavioral disturbance: without behavioral disturbance Dementia type: Lewy body dementia Qualified Code(s): G31.83 - Dementia with Lewy bodies; F02.80 - Dementia in other diseases classified elsewhere without behavioral disturbance Other Information Additional DC diagnoses/information: -Physical deconditioning: Has been working with therapy with recommendation made for continued skilled therapy. Prior discussion on alternative disposition patient declining SNF placement. Discharge home with home health services Reason for Visit Reason for Visit: sob/cough/weakness Hospital Course Hospital Course: Patient was admitted to the cardiac stepdown unit and placed on telemetry monitoring. He had presented with Cedric alegre with RVR requiring initiation of Cardizem drip. Patient had previously been on sotalol. Due to his underlying history and presentation cardiology was consulted and recommended discontinuation of sotalol and initiation of amiodarone in addition to adjustment of metoprolol. Patient had previously been tried on anticoagulation but due to GI bleed and significant underlying anemia is not a good candidate for long-term anticoagulation so has been on aspirin 81 mg. Cardizem drip was weaned off and antiarrhythmics adjusted as recommended by cardiology. Patient had an echo as noted above. Hemoglobin has been closely monitored and he has required transfusion of 1 unit of PRBCs due to noted continued drop in his levels. He has had appropriate increase in his hemoglobin following transfusion. He would likely benefit from GI work-up and has been referred to general surgery to arrange for this. He has been hemodynamically stable, afebrile. Renal function has been stable. He has been maintained on room air. He has required some insulin due to noted hypoglycemia. He is extremely reluctant to continue insulin therapy which would be a good choice given his uncontrolled diabetes but for now we will continue oral antihyperglycemic regimen with close monitoring with his primary care provider. Home health services have been arranged to assist with checking of vital signs and medication administration. Due to underlying anemia will recommend repeat CBC on Friday. Will need to follow-up with nurse practitioner at [facility] in 1 week for EKG and labs, and with Dr. Orlando in about 1 month. He will need to follow-up with his primary care provider within 1 week. He has been counseled on need to seek medical attention immediately should any of his symptoms recur. PPI has been added due to underlying anemia. Of note there was discussion on alternative disposition including SNF placement which patient declined. Discharge Summary: -Patient to follow-up with his primary care provider within 1 week -[facility] to [facility] with nurse practitioner in 1 week for EKG and labs -Patient to follow-up with Dr. Orlando in 1 month -Patient to follow-up with general surgery to determine timing of GI work-up Physical Exam Const: COMMON NORMALS: no acute distress and patient oriented x3 GENERAL APPEARANCE: cooperative and comfortable ORIENTATION/CONSCIOUSNESS: Yes awake HENMT: COMMON NORMALS: normocephalic, atraumatic, hearing grossly normal bilaterally and moist oral mucous membranes HEAD & SCALP: normocephalic and atraumatic Eye: COMMON NORMALS: Equal, round and reactive pupils present, EOMs intact bilaterally and conjunctivae normal CONJUNCTIVA: Yes conjunctivae normal PUPIL: Yes Equal, round and reactive pupils present Neck/C-Spine: COMMON NORMALS: full ROM GENERAL: Yes normal visual inspection and Yes trachea midline Resp: COMMON NORMALS: normal respiratory effort, No retractions, No use of accessory muscles and clear to auscultation bilaterally EFFORT & INSPECTION: Yes able to speak in complete sentences, Yes symmetric chest movement and No tachypneic AUSCULTATION: clear to auscultation bilaterally Cardio: COMMON NORMALS: regular rate, regular rhythm, S1 normal heart sound present, S2 normal heart sound present and No murmurs present (Cardio) RATE: regular rate RHYTHM: regular rhythm HEART SOUNDS: S1 normal heart sound present and S2 normal heart sound present GI: COMMON NORMALS: Normal to inspection, nondistended, normoactive bowel sounds present, Soft to palpation and non-tender PALPATION: Yes Soft to palpation Extremity: COMMON NORMALS: normal to inspection, full ROM and no clubbing, cyanosis or edema; negative for no pedal edema Neuro: COMMON NORMALS: patient oriented x3, moves all extremities, no focal motor deficits, no sensory deficits noted and gait normal Psych: COMMON NORMALS: mental status grossly normal, Normal thought process present, cooperative, normal affect and speech normal SPEECH: Yes normal speech THOUGHT PROCESS: Normal thought process present Skin: COMMON NORMALS: no rashes or lesions noted, no jaundice, no petechiae and no mottling GENERAL SKIN EXAM: no rashes or lesions noted Discharge Data Data Completed and Pending: Completed Studies During Hospitalization Category Date Time Status XR chest 1V amanda ble [id number] Routine Exams 02/13/20 10:36 Completed XR chest 1V amanda ble [id number] Stat Exams 02/11/20 09:39 Completed CV echo complete* [id number] Routine Ultrasound 02/11/20 13:39 Completed Labs from last 24 hours 02/15/20 02/15/20 02/15/20 06:03 04:09 04:09 WBC 8.8 RBC 3.39 L Hgb 8.7 L Hct 29.1 L MCV 85.8 MCH 25.7 L MCHC 29.9 L RDW 14.6 Plt Count 247 MPV 10.4 Neut % (Auto) 72.3 Lymph % (Auto) 13.7 [place] % (Auto) 11.0 Eos % (Auto) 1.9 Baso % (Auto) 0.5 Neut # (Auto) 6.37 Lymph # (Auto) 1.2 [place] # (Auto) 1.0 H Eos # (Auto) 0.2 Baso # (Auto) 0.0 Nucleated RBC % (a uto) 0 Nucleated RBCs # 0.0 Sodium 132 L Potassium 4.5 Chloride 101 Carbon Dioxide 20 L Anion Gap 15.5 BUN 48 H Creatinine 2.1 H GFR Calculation Not Reportable Glucose 279 H POC Glucose 317 Calculated Osmolal ity 282 L Calcium 8.8 Blood Type Rho(D) Type Antibody Screen Crossmatch 02/14/20 02/14/20 02/14/20 20:33 18:27 17:50 WBC RBC Hgb Hct MCV MCH MCHC RDW Plt Count MPV Neut % (Auto) Lymph % (Auto) [place] % (Auto) Eos % (Auto) Baso % (Auto) Neut # (Auto) Lymph # (Auto) [place] # (Auto) Eos # (Auto) Baso # (Auto) Nucleated RBC % (a uto) Nucleated RBCs # Sodium Potassium Chloride Carbon Dioxide Anion Gap BUN Creatinine GFR Calculation Glucose POC Glucose 278 382 436 Calculated Osmolal ity Calcium Blood Type Rho(D) Type Antibody Screen Crossmatch 02/14/20 02/14/20 02/14/20 17:10 14:13 14:13 WBC RBC Hgb 7.5 L Hct 24.5 L MCV MCH MCHC RDW Plt Count MPV Neut % (Auto) Lymph % (Auto) [place] % (Auto) Eos % (Auto) Baso % (Auto) Neut # (Auto) Lymph # (Auto) [place] # (Auto) Eos # (Auto) Baso # (Auto) Nucleated RBC % (a uto) Nucleated RBCs # Sodium Potassium Chloride Carbon Dioxide Anion Gap BUN Creatinine GFR Calculation Glucose POC Glucose 482 Calculated Osmolal ity Calcium Blood Type A Positive Rho(D) Type Positive Antibody Screen Negative Crossmatch See Detail 02/14/20 11:10 WBC RBC Hgb Hct MCV MCH MCHC RDW Plt Count MPV Neut % (Auto) Lymph % (Auto) [place] % (Auto) Eos % (Auto) Baso % (Auto) Neut # (Auto) Lymph # (Auto) [place] # (Auto) Eos # (Auto) Baso # (Auto) Nucleated RBC % (a uto) Nucleated RBCs # Sodium Potassium Chloride Carbon Dioxide Anion Gap BUN Creatinine GFR Calculation Glucose POC Glucose 315 Calculated Osmolal ity Calcium Blood Type Rho(D) Type Antibody Screen Crossmatch Vitals: Last Vital Signs Temp 98.4 F 02/15/20 07:39 Pulse 114 H 02/15/20 07:39 Resp 18 02/15/20 07:39 BP 126/91 02/15/20 07:39 Pulse Ox 93 02/15/20 07:39 Discharge Plan Discharge Patient Disposition: Home Health Service Condition: Stable Prescriptions: New Pacerone 200 mg Tablet See Rx Instructions .ROUTE .COMPLEX Qty: 60 RF: 0 metoprolol tartrate 50 mg Tablet 50 mg PO BID Qty: 60 RF: 0 pantoprazole 40 mg Tablet,Delayed Release (Dr/Ec) 40 mg PO DAILY Qty: 30 RF: 0 potassium chloride 10 mEq Tablet Extended Release 10 meq PO DAILY Qty: 30 RF: 0 furosemide 20 mg Tablet 20 mg PO DAILY Qty: 30 RF: 0 Continued isosorbide mononitrate 60 mg tablet extended release 24 hr 60 mg PO QAM RF: 0 cholecalciferol (vitamin D3) 2,000 unit tablet 1,000 unit PO DAILY RF: 0 chlorpheniramine maleate [Allergy Relief(chlorpheniramn)] 4 mg tablet 4 mg PO Q6H RF: 0 gabapentin 400 mg capsule 400 mg PO DAILY RF: 0 omega-3 fatty acids [Fish Oil Concentrate] 1,000 mg capsule 1,000 mg PO BID RF: 0 colestipol 1 gram tablet 2 gm PO BID RF: 0 amlodipine 5 mg Tablet 10 mg PO DAILY Qty: 60 RF: 0 multivitamin with iron-mineral Tablet Extended Release 1 tab PO DAILY Qty: 30 RF: 0 glipizide 5 mg tablet 5 mg PO BID Qty: 60 RF: 0 Changed atorvastatin 10 mg tablet 20 mg PO BEDTIME Qty: 0 RF: 0 Held aspirin [Adult Aspirin Regimen] 81 mg tablet,delayed release (DR/EC) 81 mg PO DAILY RF: 0 Hold Instructions: Please DO NOT take Aspirin until your doctor tells you to resume it. Discontinued metoprolol tartrate 75 mg tablet 75 mg PO BID RF: 0 sotalol 80 mg Tablet 80 mg PO DAILY RF: 0 Discharge Orders: Discharge Order (Routine); Ordered 02/15/20 Ordered By: Donna Hernandez Referrals: [facility] [Outside] (Please draw CBC on Friday and send results to primary care provider for review.) Jared Orlando MD [Physician] - 1 month (You have an follow-up appointment with Dr. Orlando on Mar 27 with Check-in time at 10:30a.m. If you have any questions or need to reschedule. Please call ) Joni Skelton MD [Physician] - (You have an appointment with Dr. Skelton on February 17 at 11:30a.m. If you have any questions, please call ) Renee Patel FNP [Nurse Practitioner] - 1 week (You have an follow-up appointment with Renee Patel on [place], [place] 11 at 1:00p.m. During this appointment labs and an ECG will be done. If you have any questions or need to reschedule. Please call ) Grover Brooks [Primary Care Provider] - 4-7 days (You have an follow-up appointment with Dr. Brooks on February 20 at 9:00a.m. If you have any questions or need to reschedule. Please call ) Discharge Diet: Diabetic Discharge Activity: Increase activity as tolerated and Use walker/crutches as instructed Patient Instructions: Metoprolol (By mouth), Amiodarone (By mouth), Pantoprazole (By mouth), GI Bleeding, Hypertension (DC), Anemia (DC), CHF Stoplight Activity Restrictions/Additional Instructions: -Please note that you will have labs drawn on Friday by home health care nurse to continue to monitor your hemoglobin. -Please pay close attention to your medication changes including need to hold Aspirin until appropriate follow up with your doctor -Home health care nurse will be monitoring of vital signs and blood sugar Discharge Attestations Time Spent in Discharge Care*: greater than 30 min Specific Discharge Activities: Specific discharge activities: educating patient, discussing with showcase trimmer/social workers/dc planners, documenting/other paperwork and evaluating patient/reviewing data Status at Discharge: Cognitive status at discharge: cognitively intact, Behavioral status at discharge: cooperative, Overall status at discharge: patient is progressing back to baseline Quality Metrics Clinical Quality Measures During this hospital stay, did patient experience: None Coding Level of Care Code Acute Self Storage Manager for [facility] Fwd Exam Comprehensive Diagnoses Atrial fibrillation with rapid ventricular response I48.91 Acute on chronic diastolic (congestive) heart failure I50.33 Benign essential hypertension with target blood pressure below 140/90 I10 GI bleeding K92.2 GI bleed type/associated pathology: unspecified gastrointestinal hemorrhage type Dyslipidemia E78.5 Diabetes mellitus E11.65 Diabetes mellitus complication status: with hyperglycemia Diabetes mellitus parts counterman insulin use: without assisted use Diabetes mellitus type: type 2 Chronic anemia D64.9 Chronic kidney disease N18.3 Chronic kidney disease stage: stage 3 (moderate) Ventricular tachycardia I47.2 Cough R05 Dementia G31.83; F02.80 Dementia behavioral disturbance: without behavioral disturbance Dementia type: Lewy body dementia
[2020-02-15 10:56] VITALS: BP 101/70; PULSE 98; RESP 16; TEMP 36.7; O2SAT 93
[2020-02-15] MEDS: FUROsemide 20 mg Tablet PO (11:10)
[2020-02-15] MEDS: potassium chloride ER 10 mEq Tablet PO (11:10)
[2020-02-15 11:15] VITALS: BP 101/70; PULSE 98; RESP 16; TEMP 36.7; O2SAT 93
[2020-02-15 11:30] LABS: Glucose Point of Care 410 mg/dL (70-110)
== END 2020-02-15 13:19 | disposition home health service (06) | DRG 291 ==
LOC: ER 10:46 → CSU 12:45
PROVIDERS: Family Medicine; Internal Medicine; Admitting Provider Family Medicine; PCP Family Medicine; Visit Provider Family Medicine
DX: I13.0 Hypertensive heart and chronic kidney disease with heart failure and stage 1 through stage 4 chronic kidney disease, or unspecified chronic kidney disease (principal); I50.33 Acute on chronic diastolic (congestive) heart failure; I48.20 Chronic atrial fibrillation, unspecified; K92.2 Gastrointestinal hemorrhage, unspecified; I47.2 Ventricular tachycardia; N18.3 Chronic kidney disease, stage 3 (moderate); E11.22 Type 2 diabetes mellitus with diabetic chronic kidney disease; E11.65 Type 2 diabetes mellitus with hyperglycemia; E78.2 Mixed hyperlipidemia; D64.9 Anemia, unspecified; G31.83 Neurocognitive disorder with Lewy bodies; F02.80 Dementia in other diseases classified elsewhere, unspecified severity, without behavioral disturbance, psychotic disturbance, mood disturbance, and anxiety; Z87.891 Personal history of nicotine dependence; J40 Bronchitis, not specified as acute or chronic; Z79.84 Long term (current) use of oral hypoglycemic drugs; E11.42 Type 2 diabetes mellitus with diabetic polyneuropathy
CPT/HCPCS: 12345; 36415; 36416; 36430; 71045; 80048; 80053; 80061; 82274; 82962; 83036; 83540; 83550; 83721; 83735; 83880; 84100; 84439; 84443; 84484; 85014; 85018; 85025; 86850; 86900; 86920; 93005; 93306; 94664; 96372; 96375; 97110; 97116; 97161; 97165; 97530; 99283; J1644; J1650; J1815; J1940; J2405; J3475; J3490; P9016

== ENCOUNTER → 2020-03-17 08:44 | Outpatient (BNVA) | payer OTHER, MEDICARE, SELFPAY | PROVIDERS: PCP Family Medicine; Visit Provider Internal Medicine | DX: Z11.59 Encounter for screening for other viral diseases (principal) | CPT/HCPCS: 87635 ==

== ENCOUNTER 2020-04-13 11:33 | Emergency (ER) | payer OTHER, MEDICARE, SELFPAY ==
[2020-04-13 12:09] VITALS: BMI 30.7
[2020-04-13 12:18] VITALS: BP 139/65; PULSE 72; RESP 16; TEMP 36.6; O2SAT 94
[2020-04-13 12:19] VITALS: PULSE 70
[2020-04-13] MEDS: FUROsemide 10 mg/mL SDV 10mL 80 MG IVP (12:34)
--- NOTE | 2020-04-13 13:18 | W.ED.EXTPRO ---
HPI - Extremity Problem General: Chief complaint: Extremity Injury, Lower Stated complaint: SWELLING IN LEGS Time Seen by Provider: 04/13/20 12:12 Source: patient Mode of arrival: ambulatory Limitations: no limitations History of Present Illness: HPI Narrative: 74-year-old male who states that he has been having increased swelling in his legs for weeks. He states that they did increase his Lasix at first but then they decreased again and he is on 20 mg daily. He states that since he decreased that his swelling is increased and has had some shortness of breath while laying flat. He denies any fever. Patient is comfortable currently. Denies any injuries. Associated symptoms: Deny chest pain, fever(s) or rash Review of Systems Const: Denies: fever(s), chills, body aches or change in appetite Eyes: Denies: blurry vision or eye discomfort ENMT: Denies: throat pain or dental pain Card: Denies: chest pain Resp: Denies: dyspnea GI: Denies: abdominal pain, nausea, vomiting or diarrhea : Denies: dysuria Musc: Reports: extremity swelling Skin/Breast: Denies: rash Neuro: Denies: headache(s) Psych: Denies: depression Raz/Lymph: Denies: easy bruising All/Imm: Denies: urticaria PFSH ED PFSH: Medical History Acute on chronic diastolic (congestive) heart failure -Appears to be better compensated in terms of overall volume status -Echo as reported above with ejection fraction of 45 to 50% -on Lasix as needed for now Anemia Atrial fibrillation Benign essential hypertension with target blood pressure below 140/90 Chronic anemia Chronic kidney disease Dementia -Reported history of Lewy body dementia -Reorient as needed Diabetes mellitus -Poorly controlled based on A1c of 11.4 in January -Accu-Cheks, hypoglycemia precautions, ISS -Glipizide on hold -cardiac consistent carb diet as tolerated Dyslipidemia Edema, peripheral Essential hypertension GI bleeding High risk medication use Hypertension Lewy body dementia Mixed hyperlipidemia Neuropathy Ventricular tachycardia Surgical History H/O hernia repair S/P rotator cuff repair Family History Mother Sudden cardiac Other Cancer Diabetes Denies family history of Anesthesia complication Bleeding disorder Social History Smoking and tobacco status: former smoker Alcohol intake: never Lives independently: Yes Marital status: / Current occupational status: retired History of recent travel: No Physical Exam Const: COMMON NORMALS: no acute distress, patient oriented x3 and healthy appearing HENMT: COMMON NORMALS: normocephalic and atraumatic HEAD & SCALP: normocephalic and atraumatic Eye: COMMON NORMALS: Equal, round and reactive pupils present and EOMs intact bilaterally PUPIL: Yes Equal, round and reactive pupils present Neck/C-Spine: COMMON NORMALS: full ROM and supple Chest: COMMONS NORMALS: normal inspection of the chest and normal palpation of entire chest wall Resp: COMMON NORMALS: normal respiratory effort, No retractions, No use of accessory muscles and clear to auscultation bilaterally AUSCULTATION: clear to auscultation bilaterally Cardio: COMMON NORMALS: regular rate, regular rhythm and No murmurs present (Cardio) RATE: regular rate RHYTHM: regular rhythm GI: COMMON NORMALS: Normal to inspection, nondistended, normoactive bowel sounds present, Soft to palpation, non-tender and no masses PALPATION: Yes Soft to palpation Extremity: COMMON NORMALS: full ROM NARRATIVE EXTREMITY EXAM: 2+ edema to bilateral extremities Neuro: COMMON NORMALS: patient oriented x3, moves all extremities and no focal motor deficits Psych: COMMON NORMALS: mental status grossly normal, Normal thought process present and cooperative THOUGHT PROCESS: Normal thought process present Skin: COMMON NORMALS: no rashes or lesions noted and no wounds GENERAL SKIN EXAM: no rashes or lesions noted Course Vital Signs: Vital signs: Vital Signs Temperature 97.9 F 04/13/20 12:18 Pulse Rate 71 04/13/20 14:38 Respiratory Rate 18 04/13/20 14:38 Blood Pressure 137/67 04/13/20 14:38 Pulse Oximetry 94 04/13/20 14:38 MDM - Extremity (Nontraumatic) MDM Narrative: Medical decision making narrative: Patient presents here with extremity edema likely from his congestive heart failure. He has slight edema in his lungs as well but not severe. Patient is not requiring any oxygen. Patient given Lasix here and has been urinating. We will increase his Lasix from 20-40. He is to follow-up with PCP in 3 to 5 days for recheck. If he has any increase in weight gain or shortness of breath he is to return immediately. Patient understands and agrees to plan. Lab Data: Labs: Lab Results 04/13/20 04/13/20 04/13/20 Range/Units 12:23 12:23 13:27 WBC Cancelled 8.8 Corrected WBC Cancelled RBC Cancelled 3.58 L Hgb Cancelled 8.9 L Hct Cancelled 30.9 L MCV Cancelled 86.3 MCH Cancelled 24.9 L MCHC Cancelled 28.8 L RDW Cancelled 16.5 H Plt Count Cancelled 324 MPV Cancelled 9.4 Gran % Cancelled Neut % (Auto) Cancelled 72.3 Lymph % (Auto) Cancelled 14.2 [place] % (Auto) Cancelled 10.2 Eos % (Auto) Cancelled 1.9 Baso % (Auto) Cancelled 0.8 Neut # (Auto) Cancelled 6.33 Lymph # (Auto) Cancelled 1.2 [place] # (Auto) Cancelled 0.9 Eos # (Auto) Cancelled 0.2 Baso # (Auto) Cancelled 0.1 Absolute Gran (aut o) Cancelled Nucleated RBC % (a uto) Cancelled 0 Nucleated RBCs # Cancelled 0.0 Sodium 139 (136-145) mmol/L Potassium 4.5 (3.5-5.1) mmol/L Chloride 102 (98-107) mmol/L Carbon Dioxide 24 (22-29) mmol/L Anion Gap 17.5 (5-19) BUN 32 H (8-23) mg/dL Creatinine 1.9 H (0.7-1.2) mg/dL GFR Calculation Not Reportable Glucose 189 H (65-115) mg/dL Calculated Osmolal ity 300 H (285-295) mOsm/k g Calcium 9.0 (8.5-10.5) mg/dL Total Bilirubin 0.3 (0.15-1.2) mg/dL AST 18 (0-40) U/L ALT 19 (0-41) U/L Alkaline Phosphata se 120 (40-130) IU/L NT-Pro-B Natriuret Pep 1892 H (0-450) pg/mL Total Protein 7.3 (6.6-8.7) g/dL Albumin 3.8 (3.5-5.2) g/dL Globulin 3.5 (1.3-4.6) g/dL Imaging Data^: CXR: Radiologist's impression: [address] [address] XRay Report Signed Patient: Gagan Gandhi Unit #: [id number] : 1945 Age/Sex: 74 / M ADM Date: 04/13/20 Loc: ER Room/Bed: Attending Dr: Ordering Provider/Ordering MD: Tad Metcalf MD Date of Service: 04/13/20 Procedure(s): XR chest 1V portable [id number] Accession Number(s): [id number] Report Number: [id number] WS: [id number] Portable AP upright chest, 04/13/2020 Clinical Data: sob Comparison: Portable chest, 02/13/2020. Findings: There are small bilateral pleural effusions. No nodules or masses are seen. The pulmonary vascularity is increased. No pneumonia or pneumothorax is seen. The heart is enlarged. The aortic arch and descending aorta show calcification and tortuosity. XR/XR chest 1V portable [id number] Impression: Moderate congestive heart failure. Discharge Plan Discharge Patient Disposition: Home Clinical Impression: Edema, peripheral Congestive heart failure Qualifiers: Heart failure type: unspecified Heart failure chronicity: chronic Qualified Code(s): I50.9 - Heart failure, unspecified Condition: Stable Prescriptions: New Lasix 40 mg tablet 40 mg PO DAILY Qty: 30 RF: 0 No Action isosorbide mononitrate 60 mg tablet extended release 24 hr 60 mg PO QAM RF: 0 cholecalciferol (vitamin D3) 2,000 unit tablet 1,000 unit PO DAILY RF: 0 chlorpheniramine maleate [Allergy Relief(chlorpheniramn)] 4 mg tablet 4 mg PO Q6H RF: 0 gabapentin 400 mg capsule 400 mg PO DAILY RF: 0 omega-3 fatty acids [Fish Oil Concentrate] 1,000 mg capsule 1,000 mg PO BID RF: 0 colestipol 1 gram tablet 2 gm PO BID RF: 0 furosemide 20 mg tablet 20 mg PO DAILY RF: 0 hydralazine 25 mg tablet 25 mg PO TID 30 Days Qty: 90 RF: 5 amlodipine 5 mg Tablet 10 mg PO DAILY Qty: 60 RF: 0 multivitamin with iron-mineral Tablet Extended Release 1 tab PO DAILY Qty: 30 RF: 0 glipizide 5 mg tablet 5 mg PO BID Qty: 60 RF: 0 amiodarone [Pacerone] 200 mg Tablet See Rx Instructions .ROUTE .COMPLEX Qty: 60 RF: 0 metoprolol tartrate 50 mg Tablet 50 mg PO BID Qty: 60 RF: 0 atorvastatin 10 mg tablet 20 mg PO BEDTIME Qty: 0 RF: 0 pantoprazole 40 mg Tablet,Delayed Release (Dr/Ec) 40 mg PO DAILY Qty: 30 RF: 0 potassium chloride 10 mEq Tablet Extended Release 10 meq PO DAILY Qty: 30 RF: 0 Discharge Orders: Discharge Order (Routine); Ordered 04/13/20 Ordered By: Tad Metcalf Referrals: Grover Brooks [Primary Care Provider] - 1-3 days Discharge Diet: Advance as tolerated Discharge Activity: Resume usual activity Discharge Date/Time: 04/13/20 14:41 Coding Level of Care Code ED Weight And Balance Control Agent for Chg Fwd Exam Comprehensive
[2020-04-13 13:29] LABS: Alanine Aminotransferase 19 U/L (0-41); Albumin Level 3.8 g/dL (3.5-5.2); Alkaline Phosphatase 120 IU/L (40-130); Anion Gap 17.5 (5-19); Aspartate Amino Transferase 18 U/L (0-40); Blood Urea Nitrogen 32 mg/dL (8-23); Carbon Dioxide 24 mmol/L (22-29); Chloride 102 mmol/L (98-107); Globulin 3.5 g/dL (1.3-4.6); Glucose 189 mg/dL (65-115); NT Pro B Type Natriuretic Pept 1892 pg/mL (0-450); Osmolality Calculated 300 mOsm/kg (285-295); Potassium 4.5 mmol/L (3.5-5.1); Sodium 139 mmol/L (136-145); Total Bilirubin 0.3 mg/dL (0.15-1.2); Total Protein 7.3 g/dL (6.6-8.7)
[2020-04-13 13:34] LABS: Basophils # 0.1 10^3/uL (0.0-0.1); Basophils % 0.8 %; Eosinophils # 0.2 10^3/uL (0.0-0.8); Eosinophils % 1.9 %; Hematocrit 30.9 % (42.0-52.0); Hemoglobin 8.9 g/dL (11.7-16.6); Lymphocytes # 1.2 10^3/uL (0.8-4.8); Lymphocytes % 14.2 %; Mean Corpuscular HGB Conc 28.8 g/dL (30.0-36.0); Mean Corpuscular Hemoglobin 24.9 pg (28.0-34.0); Mean Corpuscular Volume 86.3 fL (80-94); Mean Platelet Volume 9.4 fL (7.4-10.4); Monocytes # 0.9 10^3/uL (0.2-0.9); Monocytes % 10.2 %; Neutrophils # 6.33 10^3/uL (1.8-7.7); Neutrophils % 72.3 %; Nucleated Red Blood Cells % 0 %; Platelet Count 324 10^3/cmm (130-400); Red Blood Count 3.58 10^6/uL (4.1-5.3); Red Cell Distribution Width 16.5 % (12.1-15.1); White Blood Count 8.8 10^3/uL (4.0-10.0)
--- NOTE | 2020-04-13 13:38 | XR_ITS ---
WS: [id number] Portable AP upright chest, 04/13/2020 Clinical Data: sob Comparison: Portable chest, 02/13/2020. Findings: There are small bilateral pleural effusions. No nodules or masses are seen. The pulmonary v ascularity is increased. No pneumonia or pneumothorax is seen. The heart is enlarged. The aortic arch and descending aorta show calcification and tortuosity. XR/XR chest 1V portable [id number] Impression: Moderate congestive heart failure.
[2020-04-13 14:38] VITALS: BP 137/67; PULSE 71; RESP 18; O2SAT 94
== END 2020-04-13 14:41 | disposition home or self-care (01) ==
PROVIDERS: Emergency Provider Emergency Medicine; PCP Family Medicine
DX: R60.0 Localized edema (principal); I11.0 Hypertensive heart disease with heart failure; I50.9 Heart failure, unspecified; E78.2 Mixed hyperlipidemia; E11.40 Type 2 diabetes mellitus with diabetic neuropathy, unspecified; Z87.891 Personal history of nicotine dependence; G31.83 Neurocognitive disorder with Lewy bodies; F02.80 Dementia in other diseases classified elsewhere, unspecified severity, without behavioral disturbance, psychotic disturbance, mood disturbance, and anxiety
CPT/HCPCS: 12345; 36415; 71045; 80053; 83880; 85025; 96374; 96375; 99281; 99283; J1940

== ENCOUNTER 2020-04-21 09:16 | Inpatient (IN) | payer OTHER, MEDICARE, SELFPAY ==
[2020-04-21] VITALS (11 sets, daily range): BP systolic 123–146; BP diastolic 62–72; PULSE 57–79; RESP 18–24; TEMP -13.4–36.6; O2SAT 90–94; BMI 30.4
--- NOTE | 2020-04-21 09:28 | W.ED.GENADLT ---
HPI - General Adult General: Chief complaint: General Medical Stated complaint: Fluid build up Time Seen by Provider: 04/21/20 09:19 History of Present Illness: HPI narrative: 74-year-old male presents to the emergency room with complaints of shortness of breath and orthopnea. He has continuous orthopnea that is actually worsened. Usually sees Dr. Orlando recently had his Lasix doubled he still has good urinary output but states despite this he has had swelling and increasing shortness of breath. On arrival here he is tachypneic and hypoxic when I came in the room his sats were in the 86 to 88% range with oxygen he improved to the low 90s. He denies any chest pain he denies any anosmia denies any fever sweats chills nausea vomiting or diarrhea. Onset (ago): month(s) Severity: severe Exacerbating factors: other (Reclining or exertion) Associated symptoms: Reports cough, decreased appetite, dyspnea, malaise, nausea, short of breath and weakness; Deny chest pain, confusion, diaphoresis, fevers/chills, headache(s), rash, palpitations, seizures, syncope or vomiting Treatments prior to arrival: other (Diuretics) Review of Systems Const: Reports: malaise; Denies: diaphoresis ENMT: Denies: throat pain, ear or mastoid pain, nasal discharge or nasal congestion Card: Reports: dyspnea on exertion and orthopnea; Denies: chest pain, palpitations or syncope Resp: Reports: dyspnea GI: Reports: nausea; Denies: vomiting : Denies: flank pain, dysuria, urinary frequency or urinary urgency Skin/Breast: Denies: rash Neuro: Denies: headache(s) or confusion [facility] ED PFSH: Medical History Acute on chronic diastolic (congestive) heart failure -Echo as reported above with ejection fraction of 45 to 50% Anemia Atrial fibrillation Benign essential hypertension with target blood pressure below 140/90 Chronic anemia Chronic kidney disease Dementia Lewy body dementia Diabetes mellitus Dyslipidemia Edema, peripheral Essential hypertension GI bleeding High risk medication use Hypertension Lewy body dementia Mixed hyperlipidemia Neuropathy Ventricular tachycardia Surgical History H/O hernia repair S/P rotator cuff repair Family History Mother Sudden cardiac Other Cancer Diabetes Denies family history of Anesthesia complication Bleeding disorder Social History Smoking and tobacco status: former smoker Alcohol intake: never Lives independently: Yes Marital status: / Current occupational status: retired History of recent travel: No Physical Exam Const: ORIENTATION/CONSCIOUSNESS: Yes awake, Yes oriented to person, Yes oriented to place and Yes oriented to time HENMT: COMMON NORMALS: normocephalic, atraumatic and hearing grossly normal bilaterally HEAD & SCALP: normocephalic and atraumatic Lymph: LYMPHATIC: no lymphadenopathy noted and no lymphedema noted Resp: AUSCULTATION: crackles (Right greater than left at the bases) and diminished lung sounds Cardio: COMMON NORMALS: regular rate, regular rhythm and No murmurs present (Cardio) RATE: regular rate RHYTHM: regular rhythm GI: COMMON NORMALS: Soft to palpation and No hepatosplenomegaly present AUSCULTATION: Yes normoactive bowel sounds PALPATION: Yes Soft to palpation, No Tenderness to palpation present (GI), No Guarding due to palpation present (GI) and Yes No hepatosplenomegaly present Extremity: COMMON NORMALS: normal to inspection, capillary refill normal, no clubbing, cyanosis or edema, no calf tenderness and no pedal edema Neuro: SENSORIUM/ORIENTATION: Yes oriented to person, Yes oriented to place and Yes oriented to time Skin: COMMON NORMALS: no rashes or lesions noted GENERAL SKIN EXAM: no rashes or lesions noted Course Vital Signs: Vital signs: Vital Signs Temperature 97.6 F 04/23/20 19:00 Pulse Rate 57 L 04/24/20 04:30 Respiratory Rate 14 04/24/20 04:25 Blood Pressure 119/61 04/24/20 04:30 Pulse Oximetry 97 04/24/20 04:30 MDM - General Adult MDM Narrative: Medical decision making narrative: Patient in a acute on chronic systolic congestive heart failure. He is hypoxic with oxygen his sats do improve but he remains very orthopneic. We will give him Lasix attempt to make placement for observation. Lab Data: Labs: Lab Results 04/21/20 04/21/20 04/21/20 Range/Units 09:39 09:46 09:46 WBC 9.2 (4.0-10.0) 10^3/ uL RBC 3.10 L (4.1-5.3) 10^6/u L Hgb 7.6 L (11.7-16.6) g/dL Hct 27.3 L (42.0-52.0) % MCV 88.1 (80-94) fL MCH 24.5 L (28.0-34.0) pg MCHC 27.8 L (30.0-36.0) g/dL RDW 16.2 H (12.1-15.1) % Plt Count 358 (130-400) 10^3/c mm MPV 9.4 (7.4-10.4) fL Neut % (Auto) 73.2 % Lymph % (Auto) 13.1 % [place] % (Auto) 10.9 % Eos % (Auto) 1.5 % Baso % (Auto) 0.8 % Neut # (Auto) 6.69 (1.8-7.7) 10^3/u L Lymph # (Auto) 1.2 (0.8-4.8) 10^3/u L [place] # (Auto) 1.0 H (0.2-0.9) 10^3/u L Eos # (Auto) 0.1 (0.0-0.8) 10^3/u L Baso # (Auto) 0.1 (0.0-0.1) 10^3/u L Nucleated RBC % (a uto) 0 % Nucleated RBCs # 0.0 /100WBC Specimen Type Arterial Sample Site Radial, left ABG pH 7.41 (7.35-7.45) ABG pCO2 38.9 (35-45) mmHg ABG pO2 63.0 L (80.0-100.0) mmH g ABG HCO3 24.5 (22-26) mmol/L ABG O2 Saturation 93.3 ABG Base Excess -0.1 (-2.0-2.0) mmol/ L Lion Test Pos A-a O2 Gradient 11.5 H (5-10) mmHg Hematocrit 24.9 L (42-52) % Hgb O2 Saturation 90.8 L (95-100) % Carboxyhemoglobin 2.2 (0.4-20.1) %THgb Methemoglobin 0.5 (0.4-1.5) % Total Hemoglobin 8.1 L (14-18) g/dL Sodium 143.0 139 (131-143) mmol/L Potassium 4.6 4.7 (3.5-5.0) mmol/L Glucose 149.0 H 157 H (70-115) mg/dL Ionized Calcium 1.3 (1.1-1.4) mmol/L O2 Delivery Device Nc O2 Liters/Min 2.0 % FiO2 28.0 % Operator Coating Furnace ID [place] Chloride 104 (98-107) mmol/L Carbon Dioxide 23 (22-29) mmol/L Anion Gap 16.7 (5-19) BUN 46 H (8-23) mg/dL Creatinine 2.5 H (0.7-1.2) mg/dL GFR Calculation Not Reportable POC Glucose (70-110) mg/dL Estimat Average Gl ucose Hemoglobin A1c (4.0-6.0) % Calculated Osmolal ity 303 H (285-295) mOsm/k g Lactic Acid (0.5-2.2) mmol/L Calcium 9.5 (8.5-10.5) mg/dL Phosphorus (2.5-4.5) mg/dL Magnesium 2.2 (1.7-2.3) mg/dL Total Bilirubin 0.3 (0.15-1.2) mg/dL AST 12 (0-40) U/L ALT 16 (0-41) U/L Alkaline Phosphata se 135 H (40-130) IU/L NT-Pro-B Natriuret Pep 3750 H (0-450) pg/mL Total Protein 6.8 (6.6-8.7) g/dL Albumin 3.5 (3.5-5.2) g/dL Globulin 3.3 (1.3-4.6) g/dL Lipase 26 (13-60) U/L TSH (0.27-4.20) uIU/ mL Urine Color (Yellow) Urine Appearance (CLEAR) Urine pH (5-7) Ur Specific Gravit y (1.005-1.030) Urine Protein (Negative) Urine Glucose (UA) (Normal) Urine Ketones (Negative) Urine Blood (Negative) Urine Nitrate (Negative) Urine Bilirubin (Negative) Urine Urobilinogen (Negative) mg/dL Ur Leukocyte Teri ase (Negative) Urine RBC (0-2) /hpf Urine WBC (0-5) /hpf Ur Squamous Epith Cells (0-5) /hpf Amorphous Sediment Urine Bacteria (NONE) /hpf Hyaline Casts /lpf Urine Mucus /hpf 04/21/20 04/21/20 04/21/20 Range/Units 09:46 09:46 09:46 WBC (4.0-10.0) 10^3/ uL RBC (4.1-5.3) 10^6/u L Hgb (11.7-16.6) g/dL Hct (42.0-52.0) % MCV (80-94) fL MCH (28.0-34.0) pg MCHC (30.0-36.0) g/dL RDW (12.1-15.1) % Plt Count (130-400) 10^3/c mm MPV (7.4-10.4) fL Neut % (Auto) % Lymph % (Auto) % [place] % (Auto) % Eos % (Auto) % Baso % (Auto) % Neut # (Auto) (1.8-7.7) 10^3/u L Lymph # (Auto) (0.8-4.8) 10^3/u L [place] # (Auto) (0.2-0.9) 10^3/u L Eos # (Auto) (0.0-0.8) 10^3/u L Baso # (Auto) (0.0-0.1) 10^3/u L Nucleated RBC % (a uto) % Nucleated RBCs # /100WBC Specimen Type Sample Site ABG pH (7.35-7.45) ABG pCO2 (35-45) mmHg ABG pO2 (80.0-100.0) mmH g ABG HCO3 (22-26) mmol/L ABG O2 Saturation ABG Base Excess (-2.0-2.0) mmol/ L Lion Test A-a O2 Gradient (5-10) mmHg Hematocrit (42-52) % Hgb O2 Saturation (95-100) % Carboxyhemoglobin (0.4-20.1) %THgb Methemoglobin (0.4-1.5) % Total Hemoglobin (14-18) g/dL Sodium (131-143) mmol/L Potassium (3.5-5.0) mmol/L Glucose (70-115) mg/dL Ionized Calcium (1.1-1.4) mmol/L O2 Delivery Device O2 Liters/Min % FiO2 % Operator Coating Furnace ID Chloride (98-107) mmol/L Carbon Dioxide (22-29) mmol/L Anion Gap (5-19) BUN (8-23) mg/dL Creatinine (0.7-1.2) mg/dL GFR Calculation POC Glucose (70-110) mg/dL Estimat Average Gl ucose 192 Hemoglobin A1c 8.3 H (4.0-6.0) % Calculated Osmolal ity (285-295) mOsm/k g Lactic Acid 0.8 (0.5-2.2) mmol/L Calcium (8.5-10.5) mg/dL Phosphorus 4.0 (2.5-4.5) mg/dL Magnesium (1.7-2.3) mg/dL Total Bilirubin (0.15-1.2) mg/dL AST (0-40) U/L ALT (0-41) U/L Alkaline Phosphata se (40-130) IU/L NT-Pro-B Natriuret Pep (0-450) pg/mL Total Protein (6.6-8.7) g/dL Albumin (3.5-5.2) g/dL Globulin (1.3-4.6) g/dL Lipase (13-60) U/L TSH 15.67 H (0.27-4.20) uIU/ mL Urine Color (Yellow) Urine Appearance (CLEAR) Urine pH (5-7) Ur Specific Gravit y (1.005-1.030) Urine Protein (Negative) Urine Glucose (UA) (Normal) Urine Ketones (Negative) Urine Blood (Negative) Urine Nitrate (Negative) Urine Bilirubin (Negative) Urine Urobilinogen (Negative) mg/dL Ur Leukocyte Teri ase (Negative) Urine RBC (0-2) /hpf Urine WBC (0-5) /hpf Ur Squamous Epith Cells (0-5) /hpf Amorphous Sediment Urine Bacteria (NONE) /hpf Hyaline Casts /lpf Urine Mucus /hpf 04/21/20 04/21/20 Range/Units 10:26 11:24 WBC (4.0-10.0) 10^3/ uL RBC (4.1-5.3) 10^6/u L Hgb (11.7-16.6) g/dL Hct (42.0-52.0) % MCV (80-94) fL MCH (28.0-34.0) pg MCHC (30.0-36.0) g/dL RDW (12.1-15.1) % Plt Count (130-400) 10^3/c mm MPV (7.4-10.4) fL Neut % (Auto) % Lymph % (Auto) % [place] % (Auto) % Eos % (Auto) % Baso % (Auto) % Neut # (Auto) (1.8-7.7) 10^3/u L Lymph # (Auto) (0.8-4.8) 10^3/u L [place] # (Auto) (0.2-0.9) 10^3/u L Eos # (Auto) (0.0-0.8) 10^3/u L Baso # (Auto) (0.0-0.1) 10^3/u L Nucleated RBC % (a uto) % Nucleated RBCs # /100WBC Specimen Type Sample Site ABG pH (7.35-7.45) ABG pCO2 (35-45) mmHg ABG pO2 (80.0-100.0) mmH g ABG HCO3 (22-26) mmol/L ABG O2 Saturation ABG Base Excess (-2.0-2.0) mmol/ L Lion Test A-a O2 Gradient (5-10) mmHg Hematocrit (42-52) % Hgb O2 Saturation (95-100) % Carboxyhemoglobin (0.4-20.1) %THgb Methemoglobin (0.4-1.5) % Total Hemoglobin (14-18) g/dL Sodium (131-143) mmol/L Potassium (3.5-5.0) mmol/L Glucose (70-115) mg/dL Ionized Calcium (1.1-1.4) mmol/L O2 Delivery Device O2 Liters/Min % FiO2 % Operator Coating Furnace ID Chloride (98-107) mmol/L Carbon Dioxide (22-29) mmol/L Anion Gap (5-19) BUN (8-23) mg/dL Creatinine (0.7-1.2) mg/dL GFR Calculation POC Glucose 125 (70-110) mg/dL Estimat Average Gl ucose Hemoglobin A1c (4.0-6.0) % Calculated Osmolal ity (285-295) mOsm/k g Lactic Acid (0.5-2.2) mmol/L Calcium (8.5-10.5) mg/dL Phosphorus (2.5-4.5) mg/dL Magnesium (1.7-2.3) mg/dL Total Bilirubin (0.15-1.2) mg/dL AST (0-40) U/L ALT (0-41) U/L Alkaline Phosphata se (40-130) IU/L NT-Pro-B Natriuret Pep (0-450) pg/mL Total Protein (6.6-8.7) g/dL Albumin (3.5-5.2) g/dL Globulin (1.3-4.6) g/dL Lipase (13-60) U/L TSH (0.27-4.20) uIU/ mL Urine Color Yellow (Yellow) Urine Appearance Clear (CLEAR) Urine pH 5 (5-7) Ur Specific Gravit y 1.010 (1.005-1.030) Urine Protein 1+ H (Negative) Urine Glucose (UA) Norm (Normal) Urine Ketones Negative (Negative) Urine Blood Neg (Negative) Urine Nitrate Negative (Negative) Urine Bilirubin Neg (Negative) Urine Urobilinogen Norm (Negative) mg/dL Ur Leukocyte Teri ase Negative (Negative) Urine RBC None (0-2) /hpf Urine WBC None (0-5) /hpf Ur Squamous Epith Cells 0-4 H (0-5) /hpf Amorphous Sediment Not Reportable Urine Bacteria Trace (NONE) /hpf Hyaline Casts 0-4 H /lpf Urine Mucus Trace /hpf Discharge Plan Discharge Patient Disposition: Admitted As Inpatient Admit Provider: Keesha Arnold Clinical Impression: Atrial fibrillation, Chronic kidney disease, Congestive heart failure, Diabetes mellitus Condition: Stable Referrals: Grover Brooks [Primary Care Provider] - Interventions: ED Discharge Assessment Last Done: 04/21/20 15:39 ED Charges Last Done: 04/21/20 15:39 Discharge Date/Time: 04/21/20 15:45 Coding Level of Care Code ED [employer] Associate for Chg Fwd Exam Comprehensive
--- NOTE | 2020-04-21 09:33 | XR_ITS ---
WS: [id number] Portable AP upright chest, 04/21/2020 Clinical Data: dyspnea/cough Comparison: Portable chest, 04/13/2020. Findings: The heart is enlarged and the pulmonary vascularity is increased. There are bilateral pleur al effusions. The aortic arch and descending aorta report was. No pneumonia or pneumothorax is presen t. XR/XR chest 1V portable [id number] Impression: 1. Moderate congestive heart failure. 2. Cardiomegaly, pulmonary vascular congestion and bilateral effusions.
[2020-04-21 09:50] LABS: ABG PCO2 38.9 mmHg (35-45); ABG PH Result 7.41 (7.35-7.45); Alveolar-Arterial Oxygen Gradi 11.5 mmHg (5-10); Arterial Blood Gas Hematocrit 24.9 % (42-52); Base Excess ABG -0.1 mmol/L (-2.0-2.0); Blood Gas Allen Test Pos; Blood Gas Operator Identificat CAAK; Blood Gas Sample Site Radial, left; Blood Gas Sample Type Arterial; Carboxyhemoglobin 2.2 %THgb (0.4-20.1); HCO3 ABG 24.5 mmol/L (22-26); HGB O2 Sat 90.8 % (95-100); Ionized Calcium Level - ABG 1.3 mmol/L (1.1-1.4); Methemoglobin 0.5 % (0.4-1.5); Oxygen Device NC; Oxygen Saturation ABG 93.3; Potassium Level - ABG 4.6 mmol/L (3.5-5.0); Total Hemoglobin 8.1 g/dL (14-18)
[2020-04-21 09:55] LABS: Basophils # 0.1 10^3/uL (0.0-0.1); Basophils % 0.8 %; Eosinophils # 0.1 10^3/uL (0.0-0.8); Eosinophils % 1.5 %; Hematocrit 27.3 % (42.0-52.0); Hemoglobin 7.6 g/dL (11.7-16.6); Lymphocytes # 1.2 10^3/uL (0.8-4.8); Lymphocytes % 13.1 %; Mean Corpuscular HGB Conc 27.8 g/dL (30.0-36.0); Mean Corpuscular Hemoglobin 24.5 pg (28.0-34.0); Mean Corpuscular Volume 88.1 fL (80-94); Mean Platelet Volume 9.4 fL (7.4-10.4); Monocytes % 10.9 %; Neutrophils # 6.69 10^3/uL (1.8-7.7); Neutrophils % 73.2 %; Nucleated Red Blood Cells % 0 %; Platelet Count 358 10^3/cmm (130-400); Red Cell Distribution Width 16.2 % (12.1-15.1); White Blood Count 9.2 10^3/uL (4.0-10.0)
[2020-04-21 10:17] LABS: Lactic Sepsis W/Reflex 0.8 mmol/L (0.5-2.2)
[2020-04-21 10:29] LABS: Alanine Aminotransferase 16 U/L (0-41); Albumin Level 3.5 g/dL (3.5-5.2); Alkaline Phosphatase 135 IU/L (40-130); Anion Gap 16.7 (5-19); Aspartate Amino Transferase 12 U/L (0-40); Blood Urea Nitrogen 46 mg/dL (8-23); Calcium 9.5 mg/dL (8.5-10.5); Carbon Dioxide 23 mmol/L (22-29); Chloride 104 mmol/L (98-107); Globulin 3.3 g/dL (1.3-4.6); Glucose 157 mg/dL (65-115); Lipase 26 U/L (13-60); Magnesium 2.2 mg/dL (1.7-2.3); NT Pro B Type Natriuretic Pept 3750 pg/mL (0-450); Osmolality Calculated 303 mOsm/kg (285-295); Potassium 4.7 mmol/L (3.5-5.1); Sodium 139 mmol/L (136-145); Total Bilirubin 0.3 mg/dL (0.15-1.2); Total Protein 6.8 g/dL (6.6-8.7)
[2020-04-21 10:30] LABS: Glucose Point of Care 125 mg/dL (70-110)
[2020-04-21 11:58] LABS: Urine Appearance Clear (CLEAR); Urine Color Yellow (Yellow); pH Urine 5 (5-7)
[2020-04-21 11:59] LABS: Add Urine Microscopic? YES; Bilirubin Urine Neg (Negative); Blood Urine Neg (Negative); Glucose Urine UA Norm (Normal); Ketones Urine Negative (Negative); Leukocyte Esterase Urine Negative (Negative); Nitrate Urine Negative (Negative); Protein Urine 1+ (Negative); Urobilinogen Urine Norm (Negative)
[2020-04-21 12:02] LABS: Add Urine Culture? No; Bacteria Urine TRACE /hpf; Hyaline Casts Urine 0-4 /lpf; Mucus Urine TRACE /hpf; Squamous Epithelial Cell Urine 0-4 /hpf (0-5)
[2020-04-21] MEDS: FUROsemide 10 mg/mL SDV 4mL 40 MG IVP (12:35)
--- NOTE | 2020-04-21 14:53 | P.CONIM_ITS ---
Providers/Reason For Consult Consulting Physican/Specialty*: Dr. Smith, cardiology Reason for Consult*: CHF Primary Care Provider: Grover Brooks History of Present Illness History of Present Illness Gagan Gandhi is a 74 year old male with past medical history of paroxysmal atrial fibrillation (failed sotalol), diastolic congestive heart failure, hypertension, type 2 diabetes mellitus, chronic kidney disease (Cr-1.9-2.1), dyslipidemia chronic anemia, nonsustained ventricular tachycardia, and Lewy body dementia. He was hospitalized back in January with atrial fibrillation with RVR, anemia and heart failure. He was found to have GI bleed requiring 1 unit packed red blood cell transfusions. He was started on amiodarone and anticoagulation was held given GI bleed and worsening anemia. His left ventricular ejection fraction at the time was 45 to 50% with diffuse hypokinesis. He usually follows up with Dr. Orlando and last saw him on 27 March. He presented to the hospital with increasing swelling in his legs. His dose of Lasix was increased to 20 mg twice a day by Dr. Orlando but it was decreased again. He was in the ER on 13 April with chest x-ray showing pulmonary congestion. His dose of Lasix was increased to 40 mg daily and he was discharged home. He presented again today with worsening dyspnea on exertion orthopnea and tachypnea with oxygen level dropping to 86 to 88% on room air. Labs on arrival showed hemoglobin of 7.6 (8.9 on 13 April), WBC 9.2. ABG with pH of 7.4, PCO2 39, PO2 63. Sodium 139, potassium 4.7, BUN 46 (32 on 13 April), creatinine 2.5 (1.9 on 13 April). NT proBNP of 3750 which has increased from 1892. At the time of evaluation, patient still appears tachypneic and short of breath. He has significant lower extremity swelling. He denies having any fever chills or sick contacts or exposure to anyone known to be COVID positive. However he was in the ER about 10 days back. Review of Systems Const: Reports: change in appetite (decrease) and change in weight (increase); Denies: fever(s) or chills Eyes: Denies: change in vision ENMT: Denies: nasal congestion Card: Reports: edema; Denies: chest pain or palpitations Resp: Reports: dyspnea, non-productive cough and wheezing; Denies: productive cough or hemoptysis GI: Denies: abdominal pain, nausea, vomiting, diarrhea, constipation, hematochezia or melena : Denies: dysuria or hematuria Musc: Denies: extremity pain or muscle cramps Skin/Breast: Denies: rash or new lesions Neuro: Denies: headache(s) or dizziness Psych: Denies: anxiety or depression Endo: Denies: polyuria or hot flashes Raz/Lymph: Denies: easy bruising or easy bleeding Meds/Allergies Home Medications and Allergies Home Medications Medication Instructions Recorded Confirmed Last Taken Type chlorpheniramine maleate 4 mg 4 mg PO Q6H 07/25/19 04/21/20 04/12/20 History tablet cholecalciferol (vitamin D3) 50 1,000 unit PO DAILY tab 07/25/19 04/21/20 04/13/20 History mcg (2,000 unit) tablet colestipol 1 gram tablet 4 gm PO BID 07/25/19 04/21/20 04/13/20 History gabapentin 400 mg capsule 400 mg PO DAILY cap 07/25/19 04/21/20 04/13/20 History isosorbide mononitrate 60 mg 60 mg PO QAM 07/25/19 04/21/20 04/13/20 History tablet,extended release 24 hr omega-3 fatty acids 1,000 mg 1,000 mg PO BID 07/25/19 04/21/20 04/13/20 History capsule amlodipine 10 mg PO DAILY #60 tab 08/03/19 04/21/20 04/13/20 Rx glipizide 5 mg PO BID #60 tab 08/03/19 04/21/20 04/13/20 Rx multivitamin with iron-mineral 1 tab PO DAILY #30 tab 08/03/19 04/21/20 04/13/20 Rx amiodarone [Pacerone] See Rx Instructions .ROUTE 02/15/20 04/21/20 04/13/20 Rx .COMPLEX #60 tab metoprolol tartrate 50 mg PO BID #60 tab 02/15/20 04/21/20 04/13/20 Rx pantoprazole 40 mg PO DAILY #30 tab 02/15/20 04/21/20 04/13/20 Rx potassium chloride 10 meq PO DAILY #30 tab 02/15/20 04/21/20 04/13/20 Rx furosemide 20 mg tablet 20 mg PO DAILY tab 03/27/20 04/21/20 04/13/20 History hydralazine 25 mg tablet 25 mg PO TID 30 Days #90 tab 03/27/20 04/21/20 04/13/20 Rx furosemide [Lasix] 40 mg PO DAILY #30 tab 04/13/20 04/21/20 Unknown Rx atorvastatin 10 mg PO BEDTIME 04/21/20 04/21/20 Unknown History ferrous sulfate 325 mg PO DAILY 04/21/20 04/21/20 Unknown History trazodone 50 mg PO BEDTIME 04/21/20 04/21/20 Unknown History Allergies Allergy/AdvReac Type Severity Reaction Status Date / Time lisinopril Allergy don't Verified 04/13/20 13:49 remember PFSH Acute PFSH: Medical History Acute on chronic diastolic (congestive) heart failure -Appears to be better compensated in terms of overall volume status -Echo as reported above with ejection fraction of 45 to 50% -on Lasix as needed for now Anemia Atrial fibrillation Benign essential hypertension with target blood pressure below 140/90 Chronic anemia Chronic kidney disease Dementia -Reported history of Lewy body dementia -Reorient as needed Diabetes mellitus -Poorly controlled based on A1c of 11.4 in January -Accu-Cheks, hypoglycemia precautions, ISS -Glipizide on hold -cardiac consistent carb diet as tolerated Dyslipidemia Edema, peripheral Essential hypertension GI bleeding High risk medication use Hypertension Lewy body dementia Mixed hyperlipidemia Neuropathy Ventricular tachycardia Surgical History H/O hernia repair S/P rotator cuff repair Family History Mother Sudden cardiac Other Cancer Diabetes Denies family history of Anesthesia complication Bleeding disorder Social History Smoking and tobacco status: former smoker Alcohol intake: never Lives independently: Yes Marital status: / Current occupational status: retired History of recent travel: No Vitals/I&O/Wt Last Vital Signs Temp 97.8 F 04/21/20 09:26 Pulse 79 04/21/20 09:26 Resp 22 H 04/21/20 09:26 BP 136/72 04/21/20 09:19 Pulse Ox 92 04/21/20 09:26 Weight last 48 hrs Weight 200 lb Physical Exam Const: COMMON NORMALS: no acute distress, average body habitus, patient oriented x3, alert and well nourished GENERAL APPEARANCE: cooperative, comfortable, well kempt and well developed ORIENTATION/CONSCIOUSNESS: Yes oriented to person, Yes oriented to place and Yes oriented to time HENMT: COMMON NORMALS: normocephalic, atraumatic, hearing grossly normal bilaterally, external ears normal and Normal external nose present HEAD & SCALP: normocephalic and atraumatic FACE & SINUS: face symmetric NOSE: Normal external nose present EXTERNAL EAR: Yes external ears normal MOUTH: Normal oral and palatal mucosa present Eye: COMMON NORMALS: Equal, round and reactive pupils present, EOMs intact bilaterally and conjunctivae normal ALIGNMENT: Yes alignment normal CONJUNCTIVA: Yes conjunctivae normal SCLERA: sclerae normal PUPIL: Yes Equal, round and reactive pupils present Neck/C-Spine: COMMON NORMALS: no lymphadenopathy, supple and Thyroid normal; negative for No carotid bruits GENERAL: Yes trachea midline and Yes JVD THYROID: Thyroid normal Lymph: LYMPHATIC: No no lymphadenopathy noted Chest: COMMONS NORMALS: normal inspection of the chest CHEST: No tenderness Resp: COMMON NORMALS: No use of accessory muscles and clear to auscultation bilaterally EFFORT & INSPECTION: Yes able to speak in complete sentences, Yes tachypneic, Yes respiratory distress (mild), No pursed lip breathing, No labored and No audible wheezes AUSCULTATION: clear to auscultation bilaterally, crackles, no rales, no rhonchi and no wheezes Cardio: COMMON NORMALS: regular rate, regular rhythm, S1 normal heart sound present, S2 normal heart sound present and Peripheral pulses 2+ throughout; negative for No gallops present (Cardio) and negative for No clicks present (Cardio) JUGULAR VENOUS DISTENTION: no JVD PALPATION: normal PMI, no heave, no palpable S3, no palpable S4 and no thrill RATE: regular rate RHYTHM: regular rhythm HEART SOUNDS: S1 normal heart sound present, S2 normal heart sound present, no gallops and no murmurs BRUITS: no abdominal aortic bruits and no carotid bruits PERIPHERAL PULSES: Peripheral pulses 2+ throughout GI: COMMON NORMALS: Normal to inspection, nondistended, normoactive bowel sounds present, Soft to palpation, non-tender and No hepatosplenomegaly present PALPATION: Yes Soft to palpation and Yes No hepatosplenomegaly present PERCUSSION: tympanic to percussion RECTAL EXAM: Yes deferred Back/Pelvis: LUMBAR SPINE/LOWER BACK: Yes normal to inspection Neuro: COMMON NORMALS: patient oriented x3 and no focal motor deficits SENSORIUM/ORIENTATION: Yes alert, Yes oriented to person, Yes oriented to place and Yes oriented to time CRANIAL NERVES: Yes CN normal except as noted Psych: COMMON NORMALS: Normal thought process present APPEARANCE: Yes well kempt MOOD & AFFECT: Yes euthymic mood THOUGHT PROCESS: Normal thought process present THOUGHT CONTENT: Yes Normal thought content present ATTENTION/CONCENTRATION: Yes attention grossly intact MEMORY/COGNITION: Yes memory grossly intact INSIGHT: Good insight present (Psych) JUDGEMENT: Go od judgement present (Psych) Data Imaging^: Other Imaging: Radiologist's impression: ECG 02/13/20 SINUS RHYTHM BORDERLINE LEFT AXIS DEVIATION [QRS AXIS < -20] ST DEVIATION AND MODERATE T-WAVE ABNORMALITY, CONSIDER ANTEROLATERAL ISCHEMIA [-0.1+ mV T WAVE IN V3-V6] Compared to ECG 02/12/2020 12:13:28 No significant changes ECHO 02/11/20 Moderate concentric left ventricle hypertrophy. Diffuse hypokinesia left ventricle. Ejection fraction around 45 to 50%. Because of the tachyarrhythmia, the segmental wall motion analysis and ejection fraction estimation could be misleading. Mildly increased left atrial size. There is no pericardial effusion. Technically difficult study because of the poor ultrasonic window. Comparison with the previous study is difficult because of the difference in the technical quality. 01/30/2018 Medium Size area of old myocardial infarction versus scarring noted in basal to mid inferior and inferolateral wall without samantha-infarct ischemia. Please note that patient was not able to perform the prone images therefore cannot rule out artifact. EKG segment will be documented separately CXR: Radiologist's impression: Findings: There are small bilateral pleural effusions. No nodules or masses are seen. The pulmonary vascularity is increased. No pneumonia or pneumothorax is seen. The heart is enlarged. The aortic arch and descending aorta show calcification and tortuosity. Impression: Moderate congestive heart failure. A&P Assessment and plan (1) Congestive heart failure: Decompensated congestive heart failure. Left ventricle ejection fraction 45 to 50% by echo in January 2020. -Patient already received Lasix 80 mg IV in the ER. Continue Lasix 60 mg IV every 12. -Strict intake and output charting and daily weight. -Follow-up BMP and magnesium level. Status: Acute Qualifiers: Heart failure chronicity: chronic Heart failure type: unspecified Qualified Code(s): I50.9 - Heart failure, unspecified (2) Atrial fibrillation: Paroxysmal atrial fibrillation. -Continue metoprolol and amiodarone. Not on anticoagulation given GI bleed. Status: Acute Qualifiers: Atrial fibrillation type: paroxysmal Qualified Code(s): I48.0 - Paroxysmal atrial fibrillation (3) Chronic kidney disease: Acute kidney injury on CKD likely in setting of renal vascular congestion -Continue to monitor BMP Status: Chronic Qualifiers: Chronic kidney disease stage: stage 3 (moderate) Qualified Code(s): N18.3 - Chronic kidney disease, stage 3 (moderate) (4) Anemia: He is due to get 2 units of packed red blood cells. 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 Please feel free to call with questions or concerns. 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
--- NOTE | 2020-04-21 15:31 | P.HP_ITS ---
Providers/Chief Complaint Primary Care Provider: Grover Brooks Chief Complaint: Fluid build up History of Present Illness Gagan Gandhi is a 74 year old male with a past medical history of chronic diastolic and systolic CHF, diabetes, chronic kidney disease and history of chronic anemia that presented to the emergency department for increasing shortness of breath. Patient stated that he has been having increasing dyspnea on exertion and increasing orthopnea over the past couple of days. Patient states no fevers or chills, no sick contacts, no exposure to anyone under investigation are positive for COVID-19. Review of Systems Const: Denies: fever(s) or chills Eyes: Denies: change in vision ENMT: Denies: nasal congestion Card: Reports: edema; Denies: chest pain or palpitations Resp: Reports: dyspnea; Denies: productive cough or hemoptysis GI: Denies: abdominal pain, nausea, vomiting, diarrhea, constipation, hematochezia or melena : Denies: dysuria or hematuria Musc: Denies: extremity pain or muscle cramps Skin/Breast: Denies: rash or new lesions Neuro: Denies: headache(s) or dizziness Psych: Denies: anxiety or depression Endo: Denies: polyuria or hot flashes Raz/Lymph: Denies: easy bruising or easy bleeding Medications/Allergies Home Medications Medication Instructions Recorded Confirmed Last Taken Type chlorpheniramine maleate 4 mg 4 mg PO Q6H 07/25/19 04/21/20 04/12/20 History tablet cholecalciferol (vitamin D3) 50 1,000 unit PO DAILY tab 07/25/19 04/21/20 04/13/20 History mcg (2,000 unit) tablet colestipol 1 gram tablet 4 gm PO BID 07/25/19 04/21/20 04/13/20 History gabapentin 400 mg capsule 400 mg PO DAILY cap 07/25/19 04/21/20 04/13/20 History isosorbide mononitrate 60 mg 60 mg PO QAM 07/25/19 04/21/20 04/13/20 History tablet,extended release 24 hr omega-3 fatty acids 1,000 mg 1,000 mg PO BID 07/25/19 04/21/20 04/13/20 History capsule amlodipine 10 mg PO DAILY #60 tab 08/03/19 04/21/20 04/13/20 Rx glipizide 5 mg PO BID #60 tab 08/03/19 04/21/20 04/13/20 Rx multivitamin with iron-mineral 1 tab PO DAILY #30 tab 08/03/19 04/21/20 04/13/20 Rx amiodarone [Pacerone] See Rx Instructions .ROUTE 02/15/20 04/21/20 04/13/20 Rx .COMPLEX #60 tab metoprolol tartrate 50 mg PO BID #60 tab 02/15/20 04/21/20 04/13/20 Rx pantoprazole 40 mg PO DAILY #30 tab 02/15/20 04/21/20 04/13/20 Rx potassium chloride 10 meq PO DAILY #30 tab 02/15/20 04/21/20 04/13/20 Rx furosemide 20 mg tablet 20 mg PO DAILY tab 03/27/20 04/21/20 04/13/20 History hydralazine 25 mg tablet 25 mg PO TID 30 Days #90 tab 03/27/20 04/21/20 04/13/20 Rx furosemide [Lasix] 40 mg PO DAILY #30 tab 04/13/20 04/21/20 Unknown Rx atorvastatin 10 mg PO BEDTIME 04/21/20 04/21/20 Unknown History ferrous sulfate 325 mg PO DAILY 04/21/20 04/21/20 Unknown History trazodone 50 mg PO BEDTIME 04/21/20 04/21/20 Unknown History Allergies Allergy/AdvReac Type Severity Reaction Status Date / Time lisinopril Allergy don't Verified 04/13/20 13:49 remember PFSH Acute PFSH: Medical History Acute on chronic diastolic (congestive) heart failure -Appears to be better compensated in terms of overall volume status -Echo as reported above with ejection fraction of 45 to 50% -on Lasix as needed for now Anemia Atrial fibrillation Benign essential hypertension with target blood pressure below 140/90 Chronic anemia Chronic kidney disease Dementia -Reported history of Lewy body dementia -Reorient as needed Diabetes mellitus -Poorly controlled based on A1c of 11.4 in January -Accu-Cheks, hypoglycemia precautions, ISS -Glipizide on hold -cardiac consistent carb diet as tolerated Dyslipidemia Edema, peripheral Essential hypertension GI bleeding High risk medication use Hypertension Lewy body dementia Mixed hyperlipidemia Neuropathy Ventricular tachycardia Surgical History H/O hernia repair S/P rotator cuff repair Family History Mother Sudden cardiac Other Cancer Diabetes Denies family history of Anesthesia complication Bleeding disorder Social History Smoking and tobacco status: former smoker Alcohol intake: never Lives independently: Yes Marital status: / Current occupational status: retired History of recent travel: No Vitals/I&O/Wt Last Vital Signs Temp 97.8 F 04/21/20 09:26 Pulse 79 04/21/20 09:26 Resp 22 H 04/21/20 09:26 BP 136/72 04/21/20 09:19 Pulse Ox 92 04/21/20 09:26 Weight last 48 hrs Weight 90.718 kg Physical Exam Const: COMMON NORMALS: patient oriented x3 and alert GENERAL APPEARANCE: cooperative ORIENTATION/CONSCIOUSNESS: Yes awake, Yes oriented to person, Yes oriented to place and Yes oriented to time HENMT: COMMON NORMALS: normocephalic and atraumatic HEAD & SCALP: normocephalic and atraumatic Eye: COMMON NORMALS: Equal, round and reactive pupils present PUPIL: Yes Equal, round and reactive pupils present Neck/C-Spine: COMMON NORMALS: supple GENERAL: Yes normal visual inspection Resp: EFFORT & INSPECTION: Yes tachypneic, Yes labored and Yes uses accessory muscles AUSCULTATION: crackles, no rhonchi and wheezes Cardio: COMMON NORMALS: regular rate and regular rhythm RATE: regular rate RHYTHM: regular rhythm GI: COMMON NORMALS: Soft to palpation and non-tender INSPECTION: No abdominal distension AUSCULTATION: Yes normoactive bowel sounds PALPATION: Yes Soft to palpation Extremity: COMMON NORMALS: no calf tenderness OTHER: 3+ pitting edema in the lower extremities bilaterally Neuro: COMMON NORMALS: patient oriented x3, CN's II-XII intact bilaterally, moves all extremities and no focal motor deficits SENSORIUM/ORIENTATION: Yes alert, Yes oriented to person, Yes oriented to place and Yes oriented to time SPEECH: speech normal Psych: COMMON NORMALS: mental status grossly normal and cooperative Skin: OTHER: Dry skin on the lower extremities bilaterally Data : 04/21/20 09:46 04/21/20 09:46 CXR: I personally reviewed and interpreted this imaging study as follows: Radiologist's impression: Findings: The heart is enlarged and the pulmonary vascularity is increased. There are bilateral pleural effusions. The aortic arch and descending aorta report was. No pneumonia or pneumothorax is present. XR/XR chest 1V portable [id number] Impression: 1. Moderate congestive heart failure. 2. Cardiomegaly, pulmonary vascular congestion and bilateral effusions. A&P Assessment and plan (1) Acute on chronic diastolic (congestive) heart failure: Strict intake and output and daily weights Cardiology consultation, Dr. Smith Continue with IV diuresis Telemetry Serial EKG and troponin Previous echocardiogram reviewed Status: Acute (2) Chronic anemia: Acute on chronic anemia with a hemoglobin of 7.6 today. Transfused 2 units of packed red blood cells in the ED, will give Lasix between units No evidence of any active bleeding Status: Acute (3) Chronic kidney disease: Chronic kidney disease with a baseline creatinine around 2, elevated to 2.5 with a BUN of 46 but appears to be fluid overloaded. We will continue with IV diuresis Status: Chronic Qualifiers: Chronic kidney disease stage: stage 3 (moderate) Qualified Code(s): N18.3 - Chronic kidney disease, stage 3 (moderate) (4) Ventricular tachycardia: Prior history of ventricular tachycardia, continue on amiodarone 200 mg daily and metoprolol 50 mg twice daily Status: Resolved (5) High risk medication use: Status: Acute (6) Edema, peripheral: Severe peripheral lower extremity edema, ANN hose ordered, plan for diuresis as above Status: Acute (7) Dyslipidemia: Continue home statin Status: Acute (8) Hypertension: Pressures well controlled at this time, continue on current medications Status: Acute Qualifiers: Hypertension type: essential hypertension Qualified Code(s): I10 - Essential (primary) hypertension (9) Dementia: Status: Chronic Qualifiers: Dementia type: Lewy body dementia Dementia behavioral disturbance: without behavioral disturbance Qualified Code(s): G31.83 - Dementia with Lewy bodies; F02.80 - Dementia in other diseases classified elsewhere without behavioral disturbance (10) Diabetes mellitus: Start on Lantus and placed on sliding scale insulin as needed, last hemoglobin A1c of 11.4 in January Glipizide on hold Status: Chronic Qualifiers: Diabetes mellitus type: type 2 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: without watermelon harvesting supervisor use Diabetes mellitus complication status: with hyperglycemia Qualified Code(s): E11.65 - Type 2 diabetes mellitus with hyperglycemia (11) Atrial fibrillation: Currently in sinus rhythm, continue metoprolol and amiodarone, not on anticoagulation due to concern for anemia Status: Acute Additional A&P Information DVT prophylaxis: SCDs, no pharmacologic prophylaxis due to anemia Diet: Carbohydrate consistent, cardiac, 1500 mL fluid restriction CODE STATUS: Full code Attestations Medical Necessity Statement*: Patient requires hospitalization due to concern for acute on chronic CHF exacerbation, expected stay greater than 2 midnights. 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
[2020-04-21 17:08] LABS: Glucose Point of Care 193 mg/dL (70-110)
[2020-04-21 17:19] LABS: Estmated Average Glucose 192; Hemoglobin A1C 8.3 % (4.0-6.0)
[2020-04-21 17:40] LABS: Hematocrit 28.2 % (42.0-52.0); Hemoglobin 7.8 g/dL (11.7-16.6)
[2020-04-21] MEDS: FUROsemide 10 mg/mL SDV 10mL 60 MG IVP (17:57)
[2020-04-21 18:04] LABS: Thyroid Stimulating Hormone 15.67 uIU/mL (0.27-4.20)
[2020-04-21] MEDS: metoprolol tartrate 50 mg Tablet PO (18:04)
[2020-04-21 21:17] LABS: Glucose Point of Care 91 mg/dL (70-110)
[2020-04-21] MEDS: atorvastatin 40 mg Tablet 20 MG PO (21:36)
[2020-04-21] MEDS: hyDRALAzine 25 mg Tablet PO (21:36)
[2020-04-21] MEDS: trazodone 50 mg Tablet PO (21:37)
[2020-04-21 22:53] LABS: Hematocrit 30.4 % (42.0-52.0); Hemoglobin 8.7 g/dL (11.7-16.6)
[2020-04-22] VITALS (9 sets, daily range): BP systolic 113–150; BP diastolic 52–76; PULSE 59–112; RESP 20–31; TEMP 36.4–36.7; O2SAT 86–96
[2020-04-22 06:21] LABS: Basophils # 0.1 10^3/uL (0.0-0.1); Basophils % 0.9 %; Eosinophils # 0.2 10^3/uL (0.0-0.8); Eosinophils % 1.6 %; Hemoglobin 8.9 g/dL (11.7-16.6); Lymphocytes # 1.1 10^3/uL (0.8-4.8); Lymphocytes % 12.3 %; Mean Corpuscular HGB Conc 28.7 g/dL (30.0-36.0); Mean Corpuscular Hemoglobin 25.4 pg (28.0-34.0); Mean Corpuscular Volume 88.3 fL (80-94); Mean Platelet Volume 9.6 fL (7.4-10.4); Monocytes # 0.9 10^3/uL (0.2-0.9); Monocytes % 9.5 %; Neutrophils # 6.85 10^3/uL (1.8-7.7); Neutrophils % 75.3 %; Nucleated Red Blood Cells % 0 %; Platelet Count 361 10^3/cmm (130-400); Red Blood Count 3.51 10^6/uL (4.1-5.3); Red Cell Distribution Width 15.9 % (12.1-15.1); White Blood Count 9.1 10^3/uL (4.0-10.0)
[2020-04-22] MEDS: FUROsemide 10 mg/mL SDV 10mL 60 MG IVP ×2 (06:23→06:40)
[2020-04-22 06:28] LABS: INR 1.09 (0.8-1.2)
[2020-04-22 06:34] LABS: Anion Gap 17.5 (5-19); Blood Urea Nitrogen 49 mg/dL (8-23); Calcium 9.6 mg/dL (8.5-10.5); Carbon Dioxide 24 mmol/L (22-29); Chloride 104 mmol/L (98-107); Glucose 177 mg/dL (65-115); Osmolality Calculated 309 mOsm/kg (285-295); Potassium 4.5 mmol/L (3.5-5.1); Sodium 141 mmol/L (136-145)
--- NOTE | 2020-04-22 06:41 | XRR_ITS ---
PROCEDURE INFORMATION: Exam: XR Chest, 1 View Exam date and time: 04/22/2020 6:44 AM Age: 74 years old Clinical indication: Dyspnea TECHNIQUE: Imaging protocol: XR of the chest Views: 1 view. COMPARISON: CR XR chest 1V portable [id number] 04/21/2020 10:03 AM FINDINGS: Lungs: There is pulmonary vascular congestion. There is bibasilar consolidation and atelectasis with bilateral pleural effusions. No pneumothorax is seen. These findings are consistent with CHF and pulmonary edema. When compared to the previous study from 04/21/2020 the basilar consolidation and atelectasis have worsened. Pleural space: See Lungs finding. Heart/Mediastinum: The cardiac silhouette is enlarged but unchanged. Bones/joints: Unremarkable. XR/XR chest 1V portable [id number] IMPRESSION: Worsening CHF with worsening basilar consolidation atelectasis and pleural effusion.
[2020-04-22 07:31] LABS: NT Pro B Type Natriuretic Pept 3398 pg/mL (0-450)
--- NOTE | 2020-04-22 08:24 | PM.PN ---
Subjective Subjective: Interval history: Patient awake in bed at time of exam. He reported continued difficulty breathing, stated that it feels about the same as admission. Discussed with him continue close monitoring of renal function and if renal function continues to decline with no urine output may have to consider dialysis, he verbalized understanding Vitals/I&O/Wt Last Vital Signs Temp 97.7 F 04/22/20 06:24 Pulse 71 04/22/20 06:24 Resp 28 H 04/22/20 06:24 BP 136/68 04/22/20 06:24 Pulse Ox 90 04/22/20 06:24 04/21/20 04/22/20 04/22/20 22:59 06:59 14:59 Intake Total 360 / 360 Output Total 450 / 450 245 / 695 100 / 100 Balance -90 / -90 -245 / -335 -100 / -100 Weight last 48 hrs Weight 94.943 kg Weight 90.718 kg Physical Exam Const: COMMON NORMALS: patient oriented x3 and alert GENERAL APPEARANCE: cooperative ORIENTATION/CONSCIOUSNESS: Yes awake, Yes oriented to person, Yes oriented to place and Yes oriented to time HENMT: COMMON NORMALS: normocephalic and atraumatic HEAD & SCALP: normocephalic and atraumatic Eye: COMMON NORMALS: Equal, round and reactive pupils present PUPIL: Yes Equal, round and reactive pupils present Neck/C-Spine: COMMON NORMALS: supple GENERAL: Yes normal visual inspection Resp: EFFORT & INSPECTION: Yes tachypneic, Yes labored and Yes uses accessory muscles AUSCULTATION: crackles, no rhonchi and wheezes Cardio: COMMON NORMALS: regular rate and regular rhythm RATE: regular rate RHYTHM: regular rhythm GI: COMMON NORMALS: Soft to palpation and non-tender INSPECTION: No abdominal distension AUSCULTATION: Yes normoactive bowel sounds PALPATION: Yes Soft to palpation Extremity: COMMON NORMALS: no calf tenderness OTHER: 3+ pitting edema in the lower extremities bilaterally Neuro: COMMON NORMALS: patient oriented x3, CN's II-XII intact bilaterally, moves all extremities and no focal motor deficits SENSORIUM/ORIENTATION: Yes alert, Yes oriented to person, Yes oriented to place and Yes oriented to time SPEECH: speech normal Psych: COMMON NORMALS: mental status grossly normal and cooperative Skin: OTHER: Dry skin on the lower extremities bilaterally Data : 04/22/20 05:37 04/22/20 05:37 A&P Assessment and plan (1) Acute on chronic diastolic (congestive) heart failure: Strict intake and output and daily weights Cardiology consultation, Dr. Smith Transition to Bumex, will add metolazone Telemetry Serial EKG and troponin Previous echocardiogram reviewed Transfer to [facility] Status: Acute (2) Chronic anemia: Acute on chronic anemia with a hemoglobin of 8.9 today. s/p transfusion on admission FOBT positive, but no large amount of bleeding Consider inpatient EGD once cardiac/respiratory status improved Status: Acute (3) Chronic kidney disease: Chronic kidney disease with a baseline creatinine around 2, elevated to 2.7 with a BUN of 49 IV bumex Will discuss with nephrology Status: Chronic Qualifiers: Chronic kidney disease stage: stage 3 (moderate) Qualified Code(s): N18.3 - Chronic kidney disease, stage 3 (moderate) (4) Ventricular tachycardia: Prior history of ventricular tachycardia, continue on amiodarone 200 mg daily and metoprolol 50 mg twice daily Status: Resolved (5) High risk medication use: Status: Acute (6) Edema, peripheral: Severe peripheral lower extremity edema, ANN hose ordered, plan for diuresis as above Status: Acute (7) Dyslipidemia: Continue home statin Status: Acute (8) Hypertension: Pressures well controlled at this time, continue on current medications Status: Acute Qualifiers: Hypertension type: essential hypertension Qualified Code(s): I10 - Essential (primary) hypertension (9) Dementia: Status: Chronic Qualifiers: Dementia type: Lewy body dementia Dementia behavioral disturbance: without behavioral disturbance Qualified Code(s): G31.83 - Dementia with Lewy bodies; F02.80 - Dementia in other diseases classified elsewhere without behavioral disturbance (10) Diabetes mellitus: Start on Lantus and placed on sliding scale insulin as needed Glipizide on hold Status: Chronic Qualifiers: Diabetes mellitus type: type 2 Diabetes mellitus intermediate card tender insulin use: without group home use Diabetes mellitus complication status: with hyperglycemia Qualified Code(s): E11.65 - Type 2 diabetes mellitus with hyperglycemia (11) Atrial fibrillation: Currently in sinus rhythm, continue metoprolol and amiodarone, not on anticoagulation due to concern for anemia Status: Acute Qualifiers: Atrial fibrillation type: paroxysmal Qualified Code(s): I48.0 - Paroxysmal atrial fibrillation Additional A&P Information DVT prophylaxis: SCDs, no pharmacologic prophylaxis due to anemia Diet: Carbohydrate consistent, cardiac, 1500 mL fluid restriction CODE STATUS: Full code Attestations Medical Necessity Statement*: Transfer patient to cardiac stepdown unit, requires continued hospitalization due to acute CHF exacerbation Coding Level of Care Code Acute Laboratory Chemist for Chg Fwd Diagnoses Acute on chronic diastolic (congestive) heart failure I50.33 Chronic anemia D64.9 Chronic kidney disease N18.3 Chronic kidney disease stage: stage 3 (moderate) Ventricular tachycardia I47.2 High risk medication use Z79.899 Edema, peripheral R60.9 Dyslipidemia E78.5 Hypertension I10 Hypertension type: essential hypertension Dementia G31.83; F02.80 Dementia type: Lewy body dementia Dementia behavioral disturbance: without behavioral disturbance Diabetes mellitus E11.65 Diabetes mellitus type: type 2 Diabetes mellitus group home insulin use: without intermediate card tender use Diabetes mellitus complication status: with hyperglycemia Atrial fibrillation I48.0 Atrial fibrillation type: paroxysmal
[2020-04-22] MEDS: hyDRALAzine 25 mg Tablet PO ×3 (08:48→20:57)
[2020-04-22] MEDS: ferrous sulfate EC 325 mg Tablet PO (08:49)
[2020-04-22] MEDS: potassium chloride ER 10 mEq Tablet PO (08:49)
[2020-04-22] MEDS: isosorbide mononitrate ER 60 mg Tablet PO (08:49)
[2020-04-22] MEDS: pantoprazole DR 40 mg Tablet PO (08:49)
[2020-04-22] MEDS: metoprolol tartrate 50 mg Tablet PO ×2 (08:49→18:31)
[2020-04-22] MEDS: gabapentin 400 mg Capsule PO (08:49)
[2020-04-22] MEDS: amlodipine 10 mg Tablet PO (08:49)
[2020-04-22] MEDS: amiodarone 200 mg Tablet PO (08:49)
[2020-04-22 10:25] LABS: Glucose Point of Care 194 mg/dL (70-110)
[2020-04-22 10:25] LABS: Glucose Point of Care 180 mg/dL (70-110)
[2020-04-22] MEDS: bumetanide 0.25 mg/mL SDV 10 mL 1 MG IV ×2 (10:31→19:52)
--- NOTE | 2020-04-22 11:10 | P.CONIM_ITS ---
Providers/Reason For Consult Consulting Physican/Specialty*: Nephrology Reason for Consult*: JED Attending Physician: Keesha Arnold DO Primary Care Provider: Grover Brooks History of Present Illness History of Present Illness Thank you for consultation. Today I reviewed this 74-year-old gentleman for evaluation of acute on chronic kidney disease. He presents with increasing edema and weight. He claims that he is roughly 10 pounds over his dry weight. Following his hospitalization he is received intravenous Bumex, and has made some urine 995ml yesterday. He still has significant lower extremity edema. He developed some shortness of breath overnight and was placed on facemask with high flow oxygen. His creatinine at baseline is roughly 1.9-2.1, however has drifted up since hospitalization is now 2.7. He has never seen a kidney specialist in the past but has been aware of some damage to his kidneys. He denies any bladder outflow obstructive symptoms. Denies a history of enlarged prostate. Whitley catheter is pending. He has a significant cardiac history with a past medical history of paroxysmal atrial fibrillation, diastolic heart failure, closely follows with outpatient loft worker head. He denies any recent exposure to anti-inflammatory medications, antibiotics or other potentially nephrotoxic substances. Meds/Allergies Home Medications and Allergies Home Medications Medication Instructions Recorded Confirmed Last Taken Type chlorpheniramine maleate 4 mg 4 mg PO Q6H 07/25/19 04/21/20 04/12/20 History tablet cholecalciferol (vitamin D3) 50 1,000 unit PO DAILY tab 07/25/19 04/21/20 04/13/20 History mcg (2,000 unit) tablet colestipol 1 gram tablet 4 gm PO BID 07/25/19 04/21/20 04/13/20 History gabapentin 400 mg capsule 400 mg PO DAILY cap 07/25/19 04/21/20 04/13/20 History isosorbide mononitrate 60 mg 60 mg PO QAM 07/25/19 04/21/20 04/13/20 History tablet,extended release 24 hr omega-3 fatty acids 1,000 mg 1,000 mg PO BID 07/25/19 04/21/20 04/13/20 History capsule amlodipine 10 mg PO DAILY #60 tab 08/03/19 04/21/20 04/13/20 Rx glipizide 5 mg PO BID #60 tab 08/03/19 04/21/20 04/13/20 Rx multivitamin with iron-mineral 1 tab PO DAILY #30 tab 08/03/19 04/21/20 04/13/20 Rx amiodarone [Pacerone] See Rx Instructions .ROUTE 02/15/20 04/21/20 04/13/20 Rx .COMPLEX #60 tab metoprolol tartrate 50 mg PO BID #60 tab 02/15/20 04/21/20 04/13/20 Rx pantoprazole 40 mg PO DAILY #30 tab 02/15/20 04/21/20 04/13/20 Rx potassium chloride 10 meq PO DAILY #30 tab 02/15/20 04/21/20 04/13/20 Rx furosemide 20 mg tablet 20 mg PO DAILY tab 03/27/20 04/21/20 04/13/20 History hydralazine 25 mg tablet 25 mg PO TID 30 Days #90 tab 03/27/20 04/21/20 04/13/20 Rx furosemide [Lasix] 40 mg PO DAILY #30 tab 04/13/20 04/21/20 Unknown Rx atorvastatin 10 mg PO BEDTIME 04/21/20 04/21/20 Unknown History ferrous sulfate 325 mg PO DAILY 04/21/20 04/21/20 Unknown History trazodone 50 mg PO BEDTIME 04/21/20 04/21/20 Unknown History Allergies Allergy/AdvReac Type Severity Reaction Status Date / Time lisinopril Allergy don't Verified 04/13/20 13:49 remember Current Medications Current Medications Generic Name Dose Route Start Last Admin Trade Name Tomeka PRN Reason Stop Dose Admin Amiodarone HCl 200 mg 04/22/20 09:00 04/22/20 08:49 Cordarone PO 200 mg DAILY DEBBIE Administration Amlodipine Besylate 10 mg 04/22/20 09:00 04/22/20 08:49 Norvasc PO 10 mg DAILY DEBBIE Administration Atorvastatin Calcium 20 mg 04/21/20 21:00 04/21/20 21:36 Lipitor PO 20 mg BEDTIME DEBBIE Administration Bumetanide 1 mg 04/22/20 08:45 04/22/20 10:31 Bumex IV 1 mg Q12H DEBBIE Administration Ferrous Sulfate 325 mg 04/22/20 09:00 04/22/20 08:49 Ferrous Sulfate PO 325 mg DAILY DEBBIE Administration Gabapentin 400 mg 04/22/20 09:00 04/22/20 08:49 Neurontin PO 400 mg DAILY DEBBIE Administration Hydralazine HCl 25 mg 04/21/20 21:00 04/22/20 08:48 Apresoline PO 25 mg TID DEBBIE Administration Insulin Aspart 0 unit 04/21/20 21:00 04/21/20 21:26 Novolog SUBCUT Not Given BEDTIME DBEBIE Protocol Insulin Aspart 0 unit 04/21/20 18:00 04/22/20 08:47 Novolog SUBCUT 6 unit TIDWM DEBBIE Administration Protocol Insulin Glargine 15 unit 04/21/20 21:00 04/21/20 21:31 Lantus SUBCUT Not Given BEDTIME DEBBIE Isosorbide Mononitrate 60 mg 04/22/20 06:00 04/22/20 08:49 Imdur PO 60 mg QAM DEBBIE Administration Metoprolol Tartrate 50 mg 04/21/20 18:00 04/22/20 08:49 Lopressor PO 50 mg BID DEBBIE Administration Pantoprazole Sodium 40 mg 04/22/20 09:00 04/22/20 08:49 Protonix PO 40 mg DAILY DEBBIE Administration Potassium Chloride 10 meq 04/22/20 09:00 04/22/20 08:49 Klor-Con 10 PO 10 meq DAILY DEBBIE Administration Trazodone HCl 50 mg 04/21/20 21:00 04/21/20 21:37 Desyrel PO 50 mg BEDTIME DEBBIE Administration PFSH Acute PFSH: Medical History Acute on chronic diastolic (congestive) heart failure -Appears to be better compensated in terms of overall volume status -Echo as reported above with ejection fraction of 45 to 50% -on Lasix as needed for now Anemia Atrial fibrillation Benign essential hypertension with target blood pressure below 140/90 Chronic anemia Chronic kidney disease Dementia -Reported history of Lewy body dementia -Reorient as needed Diabetes mellitus -Poorly controlled based on A1c of 11.4 in January -Accu-Cheks, hypoglycemia precautions, ISS -Glipizide on hold -cardiac consistent carb diet as tolerated Dyslipidemia Edema, peripheral Essential hypertension GI bleeding High risk medication use Hypertension Lewy body dementia Mixed hyperlipidemia Neuropathy Ventricular tachycardia Surgical History H/O hernia repair S/P rotator cuff repair Family History Mother Sudden cardiac Other Cancer Diabetes Denies family history of Anesthesia complication Bleeding disorder Social History Smoking and tobacco status: former smoker Alcohol intake: never Lives independently: Yes Marital status: / Current occupational status: retired History of recent travel: No Vitals/I&O/Wt Last Vital Signs Temp 98.0 F 04/22/20 08:00 Pulse 112 H 04/22/20 10:03 Resp 20 H 04/22/20 08:00 BP 146/76 04/22/20 08:00 Pulse Ox 94 04/22/20 10:03 04/21/20 04/22/20 04/22/20 22:59 06:59 14:59 Intake Total 360 / 360 360 / 360 Output Total 450 / 450 245 / 695 300 / 300 Balance -90 / -90 -245 / -335 60 / 60 Weight last 48 hrs Weight 94.943 kg Weight 90.718 kg Physical Exam Narrative: EXAM NARRATIVE: Constitutional: Awake, HEENT: Wet mucosa, no jvp, non icteric Lungs: Bilaterally clear coarse, diminished all lung zones CVS: S1 S2, no murmurs Abdo: Soft, BS ok Ext 4: global edema, peripheral perfusion with no cyanosis Neurological: Grossly non-focal A&P Additional A&P Information 1. JED on CKD Creatinine is drifting up since hospitalization now measured at 2.7 with a urine output that is somewhat lackluster. This is consistent with cardiorenal syndrome. At this time I agree with diuresis, he is currently on Bumex twice a day and I have added metolazone 5 mg daily. We can up titrate this if the responses lackluster. We will formally quantify urinary protein although from the basic urinalysis it does not appear that he has nephrotic syndrome. If he does poorly in regards to diuretic and remains fluid overloaded, will be a candidate for hemodialysis. Strict ins and outs, avoid usual nephrotoxic medication. 2. Hypothyroid Will send free T3/T4 levels May need to start therapy 3. Hypertension. Currently on combination antihypertensives and he is currently rate controlled with amiodarone. 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
--- NOTE | 2020-04-22 11:10 | PC.OT ---
OT EVALUATION ORDERS RECEIVED. PATIENT TRANSFERRED TO CSU FOR CARDIAC CONCERNS. WILL HOLD EVALUATION UNTIL TOMORROW.
[2020-04-22 11:44] LABS: Glucose Point of Care 157 mg/dL (70-110)
[2020-04-22] MEDS: metOLazone 5 MG Tablet PO (11:51)
[2020-04-22 11:52] LABS: Hematocrit 29.8 % (42.0-52.0); Hemoglobin 8.5 g/dL (11.7-16.6)
[2020-04-22 12:41] LABS: Free T4 Free Thyroxine 0.93 ng/dL (0.82-1.77)
--- NOTE | 2020-04-22 15:30 | PC.NURSE ---
call placed to Dr rodriguez after patient was bladder scanned spoke with her about patient unusual anatomy and the inablility to get the jaquez placed instructions to continue to monitor output and bladder scan if needed plan to call Dr kevin if needed to place jaquez
--- NOTE | 2020-04-22 15:53 | P.PN_ITS ---
Subjective Subjective: Interval history: Patient continues to have shortness of breath; was transferred down to CSU. He has not made much urine (UO 1L); no events on telemetry. Medications: Reviewed: Yes Medication Review Details: Current Medications Acetaminophen (Tylenol) 650 mg PO Q6H PRN PRN Reason: Mild/Mod Pain Or Temp >/= 101 Hydrocodone Bitart/Acetaminophen ([place] 5-325 Mg) 1 tab PO Q4H PRN PRN Reason: MODERATE TO SEVERE PAIN Amiodarone HCl (Cordarone) 200 mg PO DAILY PENDING SALE TO [facility] Last Admin: 04/22/20 08:49 Dose: 200 mg Documented by: Amlodipine Besylate (Norvasc) 10 mg PO DAILY PENDING SALE TO [facility] Last Admin: 04/22/20 08:49 Dose: 10 mg Documented by: Atorvastatin Calcium (Lipitor) 20 mg PO BEDTIME PENDING SALE TO [facility] Last Admin: 04/21/20 21:36 Dose: 20 mg Documented by: Bisacodyl (Dulcolax) 10 mg PO DAILY PRN PRN Reason: CONSTIPATION Bumetanide (Bumex) 1 mg IV Q12H PENDING SALE TO [facility] Last Admin: 04/22/20 10:31 Dose: 1 mg Documented by: Dextrose (D50w) 25 ml IVP ONCE PRN; Protocol PRN Reason: hypoglycemia protocol Dextrose (D50w) 50 ml IVP PRN PRN; Protocol PRN Reason: hypoglycemia protocol Ferrous Sulfate (Ferrous Sulfate) 325 mg PO DAILY PENDING SALE TO [facility] Last Admin: 04/22/20 08:49 Dose: 325 mg Documented by: Gabapentin (Neurontin) 400 mg PO DAILY PENDING SALE TO [facility] Last Admin: 04/22/20 08:49 Dose: 400 mg Documented by: Glucagon (Glucagen) 1 mg IM ONCE PRN; Protocol PRN Reason: Adult Acute Hypoglycemia Prot. Hydralazine HCl (Apresoline) 25 mg PO TID [facility]END[facility] S[facility] TO [facility] Last Admin: 04/22/20 15:38 Dose: 25 mg Documented by: Dextrose (D5w) 500 mls @ 100 mls/hr IV ONCE PRN; Protocol PRN Reason: Adult Acute Hypoglycemia Prot Insulin Aspart (Novolog) 0 unit SUBCUT BEDTIME PENDING SALE TO [facility]; Protocol Last Admin: 04/21/20 21:26 Dose: Not Given Documented by: Insulin Aspart (Novolog) 0 unit SUBCUT TIDWM PENDING SALE TO [facility]; Protocol Last Admin: 04/22/20 11:53 Dose: 4 unit Documented by: Insulin Glargine (Lantus) 15 unit SUBCUT BEDTIME [facility]ENDING [facility] TO [facility] Last Admin: 04/21/20 21:31 Dose: Not Given Documented by: Isosorbide Mononitrate (Imdur) 60 mg PO QAM PENDING SALE TO [facility] Last Admin: 04/22/20 08:49 Dose: 60 mg Documented by: Metolazone (Zaroxolyn) 5 mg PO DAILY PENDING S[facility] TO [facility] Last Admin: 04/22/20 11:51 Dose: 5 mg Documented by: Metoprolol Tartrate (Lopressor) 50 mg PO BID [facility]END[facility] TO [facility] Last Admin: 04/22/20 08:49 Dose: 50 mg Documented by: Morphine Sulfate (Morphine) 2 mg IVP Q4H PRN PRN Reason: SEVERE PAIN Naloxone HCl (Narcan) 0.1 mg IVP Q2M PRN PRN Reason: OPIATERV Ondansetron HCl (Zofran) 4 mg IVP Q8H PRN PRN Reason: vomiting, or N/V if npo Pantoprazole Sodium (Protonix) 40 mg PO DAILY PENDING SALE TO [facility] Last Admin: 04/22/20 08:49 Dose: 40 mg Documented by: Potassium Chloride (Klor-Con 10) 10 meq PO DAILY PENDING SALE TO [facility] Last Admin: 04/22/20 08:49 Dose: 10 meq Documented by: Trazodone HCl (Desyrel) 50 mg PO BEDTIME [facility]ENDING [facility] TO [facility] Last Admin: 04/21/20 21:37 Dose: 50 mg Documented by: Vitals/I&O/Wt Last Vital Signs Temp 97.8 F 04/22/20 12:18 Pulse 59 L 04/22/20 12:18 Resp 20 H 04/22/20 12:18 BP 113/52 04/22/20 12:18 Pulse Ox 96 04/22/20 12:18 04/22/20 04/22/20 04/22/20 06:59 14:59 22:59 Intake Total 360 / 360 Output Total 245 / 695 400 / 400 Balance -245 / -335 -40 / -40 Weight last 48 hrs Weight 209 lb 5 oz Weight 200 lb Physical Exam Const: COMMON NORMALS: no acute distress, patient oriented x3, alert and well nourished GENERAL APPEARANCE: cooperative, comfortable, well kempt and well developed NUTRITIONAL APPEARANCE: obese ORIENTATION/CONSCIOUSNESS: Yes oriented to person, Yes oriented to place and Yes oriented to time HENMT: COMMON NORMALS: normocephalic, atraumatic, hearing grossly normal bilaterally, external ears normal and Normal external nose present HEAD & SCALP: normocephalic and atraumatic FACE & SINUS: face symmetric NOSE: Normal external nose present EXTERNAL EAR: Yes external ears normal MOUTH: Normal oral and palatal mucosa present Eye: COMMON NORMALS: Equal, round and reactive pupils present, EOMs intact bilaterally and conjunctivae normal ALIGNMENT: Yes alignment normal CONJUNCTIVA: Yes conjunctivae normal SCLERA: sclerae normal PUPIL: Yes Equal, round and reactive pupils present Neck/C-Spine: COMMON NORMALS: no lymphadenopathy, supple and Thyroid normal; negative for No carotid bruits GENERAL: Yes trachea midline and Yes JVD THYROID: Thyroid normal Resp: COMMON NORMALS: No use of accessory muscles and clear to auscultation bilaterally AUSCULTATION: clear to auscultation bilaterally, crackles, no rales, no rhonchi and no wheezes Cardio: COMMON NORMALS: regular rate, regular rhythm, S1 normal heart sound present, S2 normal heart sound present and Peripheral pulses 2+ throughout; negative for No gallops present (Cardio) and negative for No clicks present (Cardio) JUGULAR VENOUS DISTENTION: no JVD PALPATION: normal PMI, no heave, no palpable S3, no palpable S4 and no thrill RATE: regular rate RHYTHM: regular rhythm HEART SOUNDS: S1 normal heart sound present, S2 normal heart sound present, no gallops and no murmurs BRUITS: no abdominal aortic bruits and no carotid bruits PERIPHERAL PULSES: Peripheral pulses 2+ throughout GI: COMMON NORMALS: Normal to inspection, nondistended, normoactive bowel sounds present, Soft to palpation and non-tender PALPATION: Yes Soft to palpation PERCUSSION: tympanic to percussion RECTAL EXAM: Yes deferred Extremity: GENERAL: Yes edema (4+ edema all the way upto thighs) Neuro: COMMON NORMALS: patient oriented x3 and no focal motor deficits SENSORIUM/ORIENTATION: Yes alert, Yes oriented to person, Yes oriented to place and Yes oriented to time CRANIAL NERVES: Yes CN normal except as noted Psych: COMMON NORMALS: Normal thought process present APPEARANCE: Yes well kempt MOOD & AFFECT: Yes euthymic mood THOUGHT PROCESS: Normal thought process present THOUGHT CONTENT: Yes Normal thought content present ATTENTION/CONCENTRATION: Yes attention grossly intact MEMORY/COGNITION: Yes memory grossly intact INSIGHT: Good insight present (Psych) JUDGEMENT: Good judgement present (Psych) Skin: GENERAL SKIN EXAM: other (paeu d'orange appearance) Data : 04/22/20 11:31 04/22/20 05:37 A&P Assessment and plan (1) Congestive heart failure: Decompensated congestive heart failure. Left ventricle ejection fraction 45 to 50% by echo in January 2020. -Patient already received Lasix 80 mg IV in the ER. received Lasix 60 mg IV 2 doses. -changed to Bumex and metolazone added; may have to uptitrate. Still requiring significant amount of oxygen -Strict intake and output charting and daily weight. -Follow-up BMP and magnesium level. Status: Acute Qualifiers: Heart failure chronicity: chronic Heart failure type: unspecified Qualified Code(s): I50.9 - Heart failure, unspecified (2) Atrial fibrillation: Paroxysmal atrial fibrillation. -Continue metoprolol and amiodarone. Not on anticoagulation given GI bleed. Status: Acute Qualifiers: Atrial fibrillation type: paroxysmal Qualified Code(s): I48.0 - Paroxysmal atrial fibrillation (3) Chronic kidney disease: Acute kidney injury on CKD likely in setting of renal vascular congestion -creatinine has increased today. -Nephrology on board. -Continue to monitor BMP Status: Chronic Qualifiers: Chronic kidney disease stage: stage 3 (moderate) Qualified Code(s): N18.3 - Chronic kidney disease, stage 3 (moderate) (4) Anemia: He is got 2 units of packed red blood cells. Status: Acute (5) Diabetes mellitus: Status: Chronic Qualifiers: Diabetes mellitus type: type 2 Diabetes mellitus snf insulin use: without snf use Diabetes mellitus complication status: with hyperglycemia Qualified Code(s): E11.65 - Type 2 diabetes mellitus with hyperglycemia Additional A&P Information History of nonsustained ventricular tachycardia Thank you for allowing me to participate in patient's care. Please feel free to call with questions or concerns. Attestations Medical Necessity Statement*: Needs hospital stay for decompensated CHF, worsening renal function and anemia Coding Level of Care Code Acute Sap Bpc Developer for [facility] Fwd Diagnoses Congestive heart failure I50.9 Heart failure chronicity: chronic Heart failure type: unspecified Atrial fibrillation I48.0 Atrial fibrillation type: paroxysmal Chronic kidney disease N18.3 Chronic kidney disease stage: stage 3 (moderate) Anemia D64.9 Diabetes mellitus E11.65 Diabetes mellitus type: type 2 Diabetes mellitus long term care administrator insulin use: without long term care administrator use Diabetes mellitus complication status: with hyperglycemia
--- NOTE | 2020-04-22 16:42 | PC.PT ---
PT note; nursing requests hold PT evaluation today due to various medical problems
[2020-04-22 17:30] LABS: Glucose Point of Care 129 mg/dL (70-110)
--- NOTE | 2020-04-22 18:29 | PM.CONSULT ---
Providers/Reason For Consult Consulting Physican/Specialty*: Urology/[place] Reason for Consult*: Urinary retention, severe phimosis Attending Physician: Keesha Arnold DO Primary Care Provider: Grover Brooks History of Present Illness History of Present Illness Gagan Gandhi is a 74 year old male admitted to [facility] [place] multiple medical problems including congestive heart failure, exacerbation of chronic kidney disease, chronic anemia hypertension, dementia. Has required diuresis and over the day he has had decreasing urine output with inability to void with over almost 300 cc in his bladder. Attempted placement of the catheter by the nursing staff was unsuccessful due to tight phimosis and penile edema. I was consulted for evaluation. Procedure: 1. Dilation of preputial narrowing and release of adhesions 2. Difficult Whitley catheter placement The phallus was squeezed for approximately 5 minutes to reduce the penile edema. This did expose the preputial stricture. The foreskin could not be retracted adequately to expose the meatus. Utilizing a 14 Nigerien and then a 16 Nigerien straight catheter the stricture was dilated. Introduction of finger allowed further release of internal adhesions. This still did not allow adequate visualization of the meatus. Using a 14 Nigerien Whitley catheter with the skin prepped with Betadine solution the catheter was then manipulated through the strictured preputial skin and with some difficulty eventually finally passed into the meatus and then into the bladder. About 300 cc of clear yellow urine was returned. The balloon was inflated catheter placed to dependent drainage. Review of Systems Narrative: Presented with complaints of weakness and malaise, shortness of breath, nausea, some chronic confusion. Denied bleeding, fever, chills, overt voiding dysfunction at time of admission, chest pains or palpitations, change in vision. Meds/Allergies Home Medications and Allergies Home Medications Medication Instructions Recorded Confirmed Last Taken Type chlorpheniramine maleate 4 mg 4 mg PO Q6H 07/25/19 04/21/20 04/12/20 History tablet cholecalciferol (vitamin D3) 50 1,000 unit PO DAILY tab 07/25/19 04/21/20 04/13/20 History mcg (2,000 unit) tablet colestipol 1 gram tablet 4 gm PO BID 07/25/19 04/21/20 04/13/20 History gabapentin 400 mg capsule 400 mg PO DAILY cap 07/25/19 04/21/20 04/13/20 History isosorbide mononitrate 60 mg 60 mg PO QAM 07/25/19 04/21/20 04/13/20 History tablet,extended release 24 hr omega-3 fatty acids 1,000 mg 1,000 mg PO BID 07/25/19 04/21/20 04/13/20 History capsule amlodipine 10 mg PO DAILY #60 tab 08/03/19 04/21/20 04/13/20 Rx glipizide 5 mg PO BID #60 tab 08/03/19 04/21/20 04/13/20 Rx multivitamin with iron-mineral 1 tab PO DAILY #30 tab 08/03/19 04/21/20 04/13/20 Rx amiodarone [Pacerone] See Rx Instructions .ROUTE 02/15/20 04/21/20 04/13/20 Rx .COMPLEX #60 tab metoprolol tartrate 50 mg PO BID #60 tab 02/15/20 04/21/20 04/13/20 Rx pantoprazole 40 mg PO DAILY #30 tab 02/15/20 04/21/20 04/13/20 Rx potassium chloride 10 meq PO DAILY #30 tab 02/15/20 04/21/20 04/13/20 Rx furosemide 20 mg tablet 20 mg PO DAILY tab 03/27/20 04/21/20 04/13/20 History hydralazine 25 mg tablet 25 mg PO TID 30 Days #90 tab 03/27/20 04/21/20 04/13/20 Rx furosemide [Lasix] 40 mg PO DAILY #30 tab 04/13/20 04/21/20 Unknown Rx atorvastatin 10 mg PO BEDTIME 04/21/20 04/21/20 Unknown History ferrous sulfate 325 mg PO DAILY 04/21/20 04/21/20 Unknown History trazodone 50 mg PO BEDTIME 04/21/20 04/21/20 Unknown History Allergies Allergy/AdvReac Type Severity Reaction Status Date / Time lisinopril Allergy don't Verified 04/13/20 13:49 remember Current Medications Current Medications Generic Name Dose Route Start Last Admin Trade Name Freq PRN Reason Stop Dose Admin Amiodarone HCl 200 mg 04/22/20 09:00 04/22/20 08:49 Cordarone PO 200 mg DAILY DEBBIE Administration Amlodipine Besylate 10 mg 04/22/20 09:00 04/22/20 08:49 Norvasc PO 10 mg DAILY DEBBIE Administration Atorvastatin Calcium 20 mg 04/21/20 21:00 04/21/20 21:36 Lipitor PO 20 mg BEDTIME DEBBIE Administration Bumetanide 1 mg 04/22/20 08:45 04/22/20 10:31 Bumex IV 1 mg Q12H DEBBIE Administration Ferrous Sulfate 325 mg 04/22/20 09:00 04/22/20 08:49 Ferrous Sulfate PO 325 mg DAILY DEBBIE Administration Gabapentin 400 mg 04/22/20 09:00 04/22/20 08:49 Neurontin PO 400 mg DAILY DEBBIE Administration Hydralazine HCl 25 mg 04/21/20 21:00 04/22/20 15:38 Apresoline PO 25 mg TID DEBBIE Administration Insulin Aspart 0 unit 04/21/20 21:00 04/21/20 21:26 Novolog SUBCUT Not Given BEDTIME DEBBIE Protocol Insulin Aspart 0 unit 04/21/20 18:00 04/22/20 11:53 Novolog SUBCUT 4 unit TIDWM DEBBIE Administration Protocol Insulin Glargine 15 unit 04/21/20 21:00 04/21/20 21:31 Lantus SUBCUT Not Given BEDTIME DEBBIE Isosorbide Mononitrate 60 mg 04/22/20 06:00 04/22/20 08:49 Imdur PO 60 mg QAM DEBBIE Administration Metolazone 5 mg 04/22/20 09:55 04/22/20 11:51 Zaroxolyn PO 5 mg DAILY DEBBIE Administration Metoprolol Tartrate 50 mg 04/21/20 18:00 04/22/20 08:49 Lopressor PO 50 mg BID DEBBIE Administration Pantoprazole Sodium 40 mg 04/22/20 09:00 04/22/20 08:49 Protonix PO 40 mg DAILY DEBBIE Administration Potassium Chloride 10 meq 04/22/20 09:00 04/22/20 08:49 Klor-Con 10 PO 10 meq DAILY DEBBIE Administration Trazodone HCl 50 mg 04/21/20 21:00 04/21/20 21:37 Desyrel PO 50 mg BEDTIME DEBBIE Administration PFSH Acute PFSH: Medical History Acute on chronic diastolic (congestive) heart failure -Echo as reported above with ejection fraction of 45 to 50% Anemia Atrial fibrillation Benign essential hypertension with target blood pressure below 140/90 Chronic anemia Chronic kidney disease Dementia Lewy body dementia Diabetes mellitus Dyslipidemia Edema, peripheral Essential hypertension GI bleeding High risk medication use Hypertension Lewy body dementia Mixed hyperlipidemia Neuropathy Ventricular tachycardia Surgical History H/O hernia repair S/P rotator cuff repair Family History Mother Sudden cardiac Other Cancer Diabetes Denies family history of Anesthesia complication Bleeding disorder Social History Smoking and tobacco status: former smoker Alcohol intake: never Lives independently: Yes Marital status: / Current occupational status: retired History of recent travel: No Vitals/I&O/Wt Last Vital Signs Temp 97.8 F 04/22/20 12:18 Pulse 59 L 04/22/20 12:18 Resp 20 H 04/22/20 12:18 BP 113/52 04/22/20 12:18 Pulse Ox 96 04/22/20 12:18 04/22/20 04/22/20 04/22/20 06:59 14:59 22:59 Intake Total 360 / 360 Output Total 245 / 695 400 / 400 Balance -245 / -335 -40 / -40 Weight last 48 hrs Weight 209 lb 5 oz Weight 200 lb Physical Exam Const: COMMON NORMALS: no acute distress, alert and well nourished GENERAL APPEARANCE: well developed HENMT: COMMON NORMALS: normocephalic and atraumatic HEAD & SCALP: normocephalic and atraumatic Eye: COMMON NORMALS: conjunctivae normal and no scleral icterus CONJUNCTIVA: Yes conjunctivae normal Neck/C-Spine: GENERAL: Yes normal visual inspection Resp: EFFORT & INSPECTION: No Actively coughing GI: COMMON NORMALS: Soft to palpation, non-tender and no masses PALPATION: Yes Soft to palpation : OTHER: Genital edema. Very tight phimosis. No evidence of skin infection. No scrotal infectious changes. Neuro: SENSORIUM/ORIENTATION: Yes alert Psych: APPEARANCE: Yes grossly normal ATTITUDE: Yes calm Skin: COMMON NORMALS: no rashes or lesions noted and no jaundice GENERAL SKIN EXAM: no rashes or lesions noted A&P Assessment and plan (1) Acquired phimosis of penis: Recommend leaving the catheter as long as it is required. Can evaluate for dorsal slit circumcision if it appears that this is going to be likely requirement in the future (catheter placement) on outpatient basis after his acute recovery I will be available if you have any further questions or concerns. Status: Acute (2) Acute urinary retention: Not severe. May well have spontaneously voided given more time before catheter placement for volume management. Status: Acute Coding Level of Care Code Acute Certified Art Therapist for Maylin Morales Diagnoses Acquired phimosis of penis N47.1 Acute urinary retention R33.8
[2020-04-22] MEDS: morphine 4 mg/mL SDV 1 mL 2 MG IVP (19:49)
[2020-04-22] MEDS: trazodone 50 mg Tablet PO (19:53)
--- NOTE | 2020-04-22 20:13 | PC.NURSE ---
Found patient sitting on the edge of bed with jaquez catheter pulled apart. Cleaned device using aseptic technique and reassembled. Applied foam tape to prevent further dislodgement. Patient c/o pain to bladder and feeling urge to urinate. Repositioned for comfort and flushed with 20cc of normal saline and withdrew 25 cc. No clots of sediment observed. Administered Morphine as ordered for pain to suprabuic area and patient has expressed some relief. Patient is able to rest with eyes closed at this time. Responds appropriately and opens eyes spontaneously. Evening medications given as ordered.
[2020-04-22] MEDS: insulin glargine 100 units/1 mL 15 UNIT SUBCUT (20:57)
[2020-04-22] MEDS: atorvastatin 40 mg Tablet 20 MG PO (20:57)
[2020-04-22 21:06] LABS: Urine Creatinine 98 mg/dL (39-259)
[2020-04-22 21:12] LABS: Glucose Point of Care 169 mg/dL (70-110)
[2020-04-22 21:20] LABS: Urine Protein Random 274 mg/dL
--- NOTE | 2020-04-22 21:22 | PC.NURSE ---
Patient having increased work of breathing. Crackles heard throughout. Whitley catheter in place with ~75ml of red urine in collection bag. Bumex 1mg given at ~1951. Patient oxymask in place at 10L with current SpO2 at 92-93%. Informed Dr Milton and received order for Bipap placement. Respiratory notified and in room presently and bipap started as ordered.
--- NOTE | 2020-04-22 21:33 | PC.NURSE ---
Patient is c/o of needing to urinate. Jaquez catheter is currently draining dark red urine. Patient is pulling and tugging on jaquez catheter. Patient is attempting to get out of bed to go to the bathroom. Patient appears to have increased altered mental status. JASON Ponce is in with patient presently to help patient relax.
--- NOTE | 2020-04-22 22:18 | PC.NURSE ---
Patient continues to have increasing AMS. Continues to pull at jaquez catheter, now pulling at bipap and attempting to get out of bed. Informed Dr Milton of changes. Aide currently sitting with patient to ensure he does not remove jaquez catheter or bipap.
--- NOTE | 2020-04-22 23:01 | PC.NURSE ---
Patient becoming more agitated and beginning to throw punches. Patient appears very uncomfortable. Continues to pull at jaquez and bipap. Aide remains at bedside for patient safety.
--- NOTE | 2020-04-22 23:15 | XRR_ITS ---
PROCEDURE INFORMATION: Exam: XR Chest, 1 View Exam date and time: 04/22/2020 11:16 PM Age: 74 years old Clinical indication: Shortness of breath; Patient HX: Worsened SOB after receiving blood; Additional info: Increased SOB with AMS TECHNIQUE: Imaging protocol: XR of the chest Views: 1 view. COMPARISON: CR (CHEST) 04/22/2020 7:48 AM FINDINGS: Lungs: Marked mixed interstitial/alveolar opacities in the right mid lung and right lung base. Moderate mixed interstitial/alveolar opacities in the left mid lung. Marked alveolar opacity in the left lung base. The lung findings may represent any combination of severe pulmonary edema and pneumonia. The lung findings are similar to prior study. Pleural space: No visible pneumothorax. Large right pleural effusion, similar to prior study. Moderate left pleural effusion, similar prior study. Heart/Mediastinum: Heart size within normal limits. Bones/joints: No emergent findings identified. XR/XR chest 1V portable [id number] IMPRESSION: 1. Marked mixed interstitial/alveolar opacities in the right mid lung and right lung base. Moderate mixed interstitial/alveolar opacities in the left mid lung. Marked alveolar opacity in the left lung base. The lung findings may represent any combination of severe pulmonary edema and pneumonia. The lung findings are similar to prior study. 2. Large right pleural effusion, similar to prior study. Moderate left pleural effusion, similar prior study.
[2020-04-22 23:28] LABS: Arterial Blood Gas Hematocrit 27.1 % (42-52); Blood Gas Allen Test Pos; Blood Gas Sample Site Radial, right; Blood Gas Sample Type Arterial; Carboxyhemoglobin 1.8 %THgb (0.4-20.1); HGB O2 Sat 94.2 % (95-100); Methemoglobin 0.7 % (0.4-1.5); Oxygen Device BIPAP; Total Hemoglobin 8.9 g/dL (14-18)
--- NOTE | 2020-04-22 23:43 | PC.NURSE ---
Patient becoming less responsive. Will open eyes to voice at this time. Patient not combative as before. Minimal verbal response. Informed Dr Milton of change in patient condition. Dr Milton to floor at this time.
[2020-04-23] VITALS (40 sets, daily range): BP systolic 101–132; BP diastolic 50–63; PULSE 51–86; RESP 12–24; TEMP 36.3–36.4; O2SAT 89–99
[2020-04-23 00:07] LABS: NT Pro B Type Natriuretic Pept 3607 pg/mL (0-450)
--- NOTE | 2020-04-23 00:07 | PC.NURSE ---
Inspector Rag Sorting in to draw labs. Labs obtained. Sitter at bedside called for assistance. Upon arriving to room found patient to be unresponsive at this time. Informed Dr Milton and rapid response was called. Rapid response team arrived. Patient intubated and transferred to ICU 12 at 0020. See rapid response paperwork.
[2020-04-23 00:19] LABS: Basophils # 0.1 10^3/uL (0.0-0.1); Basophils % 0.7 %; Eosinophils # 0.1 10^3/uL (0.0-0.8); Eosinophils % 1.5 %; Hematocrit 30.6 % (42.0-52.0); Hemoglobin 8.5 g/dL (11.7-16.6); Lymphocytes # 0.8 10^3/uL (0.8-4.8); Lymphocytes % 8.8 %; Mean Corpuscular HGB Conc 27.8 g/dL (30.0-36.0); Mean Corpuscular Hemoglobin 25.5 pg (28.0-34.0); Mean Corpuscular Volume 91.9 fL (80-94); Mean Platelet Volume 9.6 fL (7.4-10.4); Monocytes # 1.1 10^3/uL (0.2-0.9); Monocytes % 11.8 %; Neutrophils # 6.95 10^3/uL (1.8-7.7); Neutrophils % 76.5 %; Nucleated Red Blood Cells % 0 %; Platelet Count 325 10^3/cmm (130-400); Red Blood Count 3.33 10^6/uL (4.1-5.3); Red Cell Distribution Width 15.8 % (12.1-15.1); White Blood Count 9.1 10^3/uL (4.0-10.0)
--- NOTE | 2020-04-23 00:19 | XRR_ITS ---
PROCEDURE INFORMATION: Exam: XR Chest, 1 View Exam date and time: 04/23/2020 12:20 AM Age: 74 years old Clinical indication: Device placement; Ett placement (vent status); Patient HX: Et and og placement; Additional info: Intubation TECHNIQUE: Imaging protocol: XR of the chest Views: 1 view. COMPARISON: CR (CHEST, ) 04/22/2020 11:33 PM FINDINGS: Tubes, catheters and devices: Endotracheal tube, tip 1.6 cm above zakia. Nasogastric tube, tip below diaphragm and off image. Lungs: Extensive mixed interstitial/alveolar opacities throughout both lungs, decreased from prior study. Appearance may reflect any combination of pulmonary edema and pneumonia. Pleural space: No visible pneumothorax. Small right pleural effusion, decreased from prior study. Heart/Mediastinum: Heart size within normal limits. Bones/joints: No emergent findings identified. XR/XR chest 1V portable [id number] IMPRESSION: 1. Endotracheal tube, tip 1.6 cm above zakia. 2. Nasogastric tube, tip below diaphragm and off image. 3. Extensive mixed interstitial/alveolar opacities throughout both lungs, decreased from prior study. Appearance may reflect any combination of pulmonary edema and pneumonia. 4. Small right pleural effusion, decreased from prior study.
--- NOTE | 2020-04-23 00:23 | USCV_ITS ---
Gagan Gandhi Age: 74 Gender: M : 1945 Exam Date: 04/23/2020 06:29 Ordering Phys: Fabian Milton MD Technologist: Rosana Marrero Exam Location: [facility] – [place] Indication: Shortness of breath BP: 112 / 56 HR: 56 Rhythm: Sinus Technical Quality: Suboptimal MEASUREMENTS (Male / Female) Normal Values 2D ECHO LV Diastolic Diameter PLAX 3.8 cm 4.2 - 5.9 / 3.9 - 5.3 cm LV Systolic Diameter PLAX 2.4 cm LV Chamber Size 4.5 cm IVS Diastolic Thickness 1.8 cm 0.6 - 1.0 / 0.6 - 0.9 cm IVS Systolic Thickness 2.0 cm LVPW Diastolic Thickness 1.3 cm 0.6 - 1.0 / 0.6 - 0.9 cm LVPW Systolic Thickness 2.2 cm RV Chamber Size 3.0 cm LVOT Diameter 2.0 cm LV Ejection Fraction 2D Teich 68.3 % LA Diameter 3.3 cm LA Width 4.4 cm LA Height 6.6 cm RA Width 2.5 cm RA Height 5.0 cm Aorta at Sinotubular Diameter 3.3 cm M-MODE LV Diastolic Diameter MM 5.5 cm 4.2 - 5.9 / 3.9 - 5.3 cm LV Systolic Diameter MM 3.2 cm LV Ejection Fraction MM Teich 73.0 % IVS Diastolic Thickness MM 1.3 cm 0.6 - 1.0 / 0.6 - 0.9 cm IVS Systolic Thickness MM 1.8 cm LVPW Diastolic Thickness MM 1.3 cm 0.6 - 1.0 / 0.6 - 0.9 cm LVPW Systolic Thickness MM 1.5 cm Aortic Annulus Diameter 4.5 cm LA Ao Ratio MM 0.9 MV E Point Septal Separation 0.8 cm DOPPLER AV Peak Velocity 130.0 cm/s LVOT Peak Velocity 122.0 cm/s AV Area Cont Eq vti 3.3 cm squared AV Area Cont Eq pk 3.0 cm squared MV Area PHT 3.5 cm squared Mitral E to A Ratio 1.2 MV E' Velocity 45.0 cm/s Mitral E to MV E' Ratio 14.7 Mitral E to LV E' Lateral Ratio 14.0 Mitral E to LV E' Septal Ratio 15.5 TR Peak Velocity 263.3 cm/s TR Peak Gradient 27.7 mmHg TR Mean Velocity 227.4 cm/s TR Mean Gradient 22.2 mmHg TR Velocity Time Integral 113.7 cm Right Atrial Pressure 15.0 mmHg Pulmonary Artery Systolic Pressu 42.7 mmHg PV Peak Velocity 99.0 cm/s RV Acceleration Time 0.1 s RV Ejection Time 0.3 s RV AcT/ET 0.3 FINDINGS Left Ventricle Normal left ventricular cavity size. Possibly normal left ventricular systolic function. This study is inadequate for estimation of regional wall motion abnormality. Grade 2 diastolic dysfunction with elevated left atrial pressure. Right Ventricle Normal right ventricular size and systolic function, RVSP 42.7 mmHg. Right Atrium Normal right atrial size. Right atrial pressure estimated at 15 mmHg. Left Atrium Normal left atrial size. Mitral Valve Structurally normal mitral valve. Trace mitral valve regurgitation. Aortic Valve Structurally normal trileaflet aortic valve. No aortic valve stenosis. No aortic valve regurgitation. Tricuspid Valve Structurally normal tricuspid valve. No tricuspid valve stenosis. [id number] tricuspid valve regurgitation. Pulmonic Valve Pulmonic valve not well visualized. Pericardium Mildly dilated inferior vena cava with less than 50% respiratory variation. Aorta Normal-sized aortic root. CONCLUSIONS 1. This is a technically very difficult study. 2. Normal left ventricular cavity size. Possibly normal left ventricular systolic function. This study is inadequate for estimation of regional wall motion abnormality. Grade 2 diastolic dysfunction with elevated left atrial pressure. 3. Mild pulmonary hypertension with pulmonary artery pressure estimated at 43 mmHg. 4. [id number] tricuspid valve regurgitation. 5. Repeat study with echo contrast is recommended. Sonja Smith MD (Electronically Signed) Final Date: 23 April 2020 19:04 S
--- NOTE | 2020-04-23 00:24 | ECG_ITS ---
[facility] Test Date: 2020-04-23 Pat Name: Gagan Gandhi Department: Room: ICU12 Gender: Male [place]: : 1945 Requested By: Fabian Milton Order Number: [id number] Reading MD: Sonja Smith M.D. Measurements Intervals [place] Rate: 55 P: 0 [place]: 206 QRS: 6 QRSD: 102 T: 179 QT: 445 QTc: 426 Interpretive Statements SINUS BRADYCARDIA MODERATE T-WAVE ABNORMALITY, CONSIDER LATERAL ISCHEMIA [-0.1+ mV T WAVE IN I/aVL/V5/V6] Compared to ECG 04/23/2020 03:23:43 No significant changes Electronically Signed On 04-23-2020 18:15:44 CDT by Sonja Smith M.D. [email or web address]
--- NOTE | 2020-04-23 00:30 | PC.NURSE ---
Patient received from CSU via hospital bed. Patient was intubated in CSU and transported to ICU. Patient is stable upon arrival to unit. Order given for Propofol and Fentanyl drip for sedation.
[2020-04-23 00:33] LABS: Alanine Aminotransferase 16 U/L (0-41); Albumin Level 3.2 g/dL (3.5-5.2); Alkaline Phosphatase 130 IU/L (40-130); Anion Gap 18.5 (5-19); Aspartate Amino Transferase 17 U/L (0-40); Blood Urea Nitrogen 50 mg/dL (8-23); Calcium 9.2 mg/dL (8.5-10.5); Carbon Dioxide 21 mmol/L (22-29); Chloride 104 mmol/L (98-107); Globulin 3.3 g/dL (1.3-4.6); Glucose 104 mg/dL (65-115); Osmolality Calculated 302 mOsm/kg (285-295); Potassium 4.5 mmol/L (3.5-5.1); Sodium 139 mmol/L (136-145); Total Bilirubin 0.3 mg/dL (0.15-1.2); Total Protein 6.5 g/dL (6.6-8.7)
[2020-04-23 00:41] LABS: Troponin(5th) Baseline 45 ng/L (0-15)
[2020-04-23] MEDS: propofol 1,000 MG/100 ML INJ 17.1 MG IV ×4 (00:45→15:52)
--- NOTE | 2020-04-23 00:46 | PM.EVENT ---
Event Note Event Note: At roughly 11 PM, patient became quite agitated, was pulling at his nonrebreather mask, was confused, aggressive toward nurses, increased shortness of breath, tachypneic, having suprasternal retractions, nasal flaring, concerns for respiratory distress and associated confusion. I advised nurses to place patient on BiPAP, and obtain an ABG, chest x-ray BNP. Upon my arrival, patient was on BiPAP, was a bit more calm, answering questions, his oxygenation saturations were varying between 80s to low 90s, respiratory rate 20-30, 20/10, 40% FiO2. I change patient over to a avaps, 650 tidal volume, 100% FiO2, however patient kept pulling on his mask, causing resetting of the avaps timer. Patient, continues to have confusion, review of chest x-ray shows pulmonary vascular congestion, BNP 3607, urine output was minimal at 400, despite being on Bumex. I was able to communicate with patient, that if his condition worsen, we would have to intubate him, he said yes. At roughly 1220, nurses reported that patient became unresponsive, I arrived in the room a minute later, patient did open up his eyes to sternal rub, did follow some commands, blood pressure 130s over 80, respiratory rate 20-30, saturating in the high 90s on 100% FiO2, heart rate in the 60s, having suprasternal retractions, nasal flaring, shallow breathing. Rapid response was called, I had nurses call Dr. Britt for intubation. Patient was successfully intubated, with etomidate and succinylcholine, patient was transferred to the ICU. Plan Acute hypoxic hypercapnic respiratory failure secondary to pulmonary edema, acute heart failure, and or possible pneumonia -Transfer to the ICU -Currently on the ventilator, minimize PEEP, minimize FiO2 -Broad-spectrum antibiotics vancomycin and Zosyn, blood cultures, sputum cultures, pro-Kevin, CRP, CBC, CMP -Heparin for DVT prophylaxis, Protonix for GI prophylaxis -The issue is is that patient has worsening renal failure, last creatinine 2.7, urine output is minimal at 400, not responding to Bumex -I will try a Lasix drip, however I feel that patient will likely not respond -We will speak to nephrology about possible dialysis for fluid overload and dialysis catheter placement Patient is a full code
[2020-04-23 01:56] LABS: Procalcitonin 0.12 ng/mL (0-0.5)
--- NOTE | 2020-04-23 01:56 | ED_ITS ---
HPI - General Adult General: Chief complaint: General Medical Stated complaint: Fluid build up Time Seen by Provider: 04/21/20 09:19 History of Present Illness: HPI narrative: Rapid response was called overhead and I was called to come intubate the patient for Dr. Milton. Please see his note for details. On arrival the patient is obtunded with tachypnea obvious respiratory distress. Exacerbating factors: other (Reclining or exertion) Treatments prior to arrival: other (Diuretics) PFSH ED PFSH: Medical History Acute on chronic diastolic (congestive) heart failure -Echo as reported above with ejection fraction of 45 to 50% Anemia Atrial fibrillation Benign essential hypertension with target blood pressure below 140/90 Chronic anemia Chronic kidney disease Dementia Lewy body dementia Diabetes mellitus Dyslipidemia Edema, peripheral Essential hypertension GI bleeding High risk medication use Hypertension Lewy body dementia Mixed hyperlipidemia Neuropathy Ventricular tachycardia Surgical History H/O hernia repair S/P rotator cuff repair Family History Mother Sudden cardiac Other Cancer Diabetes Denies family history of Anesthesia complication Bleeding disorder Social History Smoking and tobacco status: former smoker Alcohol intake: never Lives independently: Yes Marital status: / Current occupational status: retired History of recent travel: No Procedures Intubation sedative: Etomidate Mg Given: 20 paralytic: Succinylcholine Mg Given: 150 Laryngoscope: Nila ET Tube Size: 8 ET Tube Uncuffed: No Tube Secured Depth (cm): 23 Tube Secured Location: lips Tube Placement Confirmation: visualized tube passing through cords, equal breath sounds bilaterally, no breath sounds over epigastrium and confirmation by capnometry Patient Tolerated Procedure: well and no complications Intubation Complications: none Course Vital Signs: Vital signs: Vital Signs Temperature 98 F 04/22/20 20:00 Pulse Rate 86 04/23/20 00:07 Respiratory Rate 12 04/23/20 00:48 Blood Pressure 132/58 04/23/20 00:00 Pulse Oximetry 96 04/23/20 00:07 MDM - General Adult Lab Data: Labs: Lab Results 10/04/0204/21/20 04/21/20 Range/Units 09:39 09:46 09:46 WBC 9.2 (4.0-10.0) 10^3/ uL RBC 3.10 L (4.1-5.3) 10^6/u L Hgb 7.6 L (11.7-16.6) g/dL Hct 27.3 L (42.0-52.0) % MCV 88.1 (80-94) fL MCH 24.5 L (28.0-34.0) pg MCHC 27.8 L (30.0-36.0) g/dL RDW 16.2 H (12.1-15.1) % Plt Count 358 (130-400) 10^3/c mm MPV 9.4 (7.4-10.4) fL Neut % (Auto) 73.2 % Lymph % (Auto) 13.1 % Gilmer % (Auto) 10.9 % Eos % (Auto) 1.5 % Baso % (Auto) 0.8 % Neut # (Auto) 6.69 (1.8-7.7) 10^3/u L Lymph # (Auto) 1.2 (0.8-4.8) 10^3/u L Gilmer # (Auto) 1.0 H (0.2-0.9) 10^3/u L Eos # (Auto) 0.1 (0.0-0.8) 10^3/u L Baso # (Auto) 0.1 (0.0-0.1) 10^3/u L Nucleated RBC % (a uto) 0 % Nucleated RBCs # 0.0 /100WBC Specimen Type Arterial Sample Site Radial, left ABG pH 7.41 (7.35-7.45) ABG pCO2 38.9 (35-45) mmHg ABG pO2 63.0 L (80.0-100.0) mmH g ABG HCO3 24.5 (22-26) mmol/L ABG O2 Saturation 93.3 ABG Base Excess -0.1 (-2.0-2.0) mmol/ L Lion Test Pos A-a O2 Gradient 11.5 H (5-10) mmHg Hematocrit 24.9 L (42-52) % Hgb O2 Saturation 90.8 L (95-100) % Carboxyhemoglobin 2.2 (0.4-20.1) %THgb Methemoglobin 0.5 (0.4-1.5) % Total Hemoglobin 8.1 L (14-18) g/dL Sodium 143.0 139 (131-143) mmol/L Potassium 4.6 4.7 (3.5-5.0) mmol/L Glucose 149.0 H 157 H (70-115) mg/dL Ionized Calcium 1.3 (1.1-1.4) mmol/L O2 Delivery Device Nc O2 Liters/Min 2.0 % FiO2 28.0 % Bibliographic Services Specialist ID Caak Chloride 104 (98-107) mmol/L Carbon Dioxide 23 (22-29) mmol/L Anion Gap 16.7 (5-19) BUN 46 H (8-23) mg/dL Creatinine 2.5 H (0.7-1.2) mg/dL GFR Calculation Not Reportable POC Glucose (70-110) mg/dL Estimat Average Gl ucose Hemoglobin A1c (4.0-6.0) % Calculated Osmolal ity 303 H (285-295) mOsm/k g Lactic Acid (0.5-2.2) mmol/L Calcium 9.5 (8.5-10.5) mg/dL Phosphorus (2.5-4.5) mg/dL Magnesium 2.2 (1.7-2.3) mg/dL Total Bilirubin 0.3 (0.15-1.2) mg/dL AST 12 (0-40) U/L ALT 16 (0-41) U/L Alkaline Phosphata se 135 H (40-130) IU/L NT-Pro-B Natriuret Pep 3750 H (0-450) pg/mL Total Protein 6.8 (6.6-8.7) g/dL Albumin 3.5 (3.5-5.2) g/dL Globulin 3.3 (1.3-4.6) g/dL Lipase 26 (13-60) U/L TSH (0.27-4.20) uIU/ mL Urine Color (Yellow) Urine Appearance (CLEAR) Urine pH (5-7) Ur Specific Gravit y (1.005-1.030) Urine Protein (Negative) Urine Glucose (UA) (Normal) Urine Ketones (Negative) Urine Blood (Negative) Urine Nitrate (Negative) Urine Bilirubin (Negative) Urine Urobilinogen (Negative) mg/dL Ur Leukocyte Teri ase (Negative) Urine RBC (0-2) /hpf Urine WBC (0-5) /hpf Ur Squamous Epith Cells (0-5) /hpf Amorphous Sediment Urine Bacteria (NONE) /hpf Hyaline Casts /lpf Urine Mucus /hpf 04/21/20 04/21/20 04/21/20 Range/Units 09:46 09:46 09:46 WBC (4.0-10.0) 10^3/ uL RBC (4.1-5.3) 10^6/u L Hgb (11.7-16.6) g/dL Hct (42.0-52.0) % MCV (80-94) fL MCH (28.0-34.0) pg MCHC (30.0-36.0) g/dL RDW (12.1-15.1) % Plt Count (130-400) 10^3/c mm MPV (7.4-10.4) fL Neut % (Auto) % Lymph % (Auto) % Gilmer % (Auto) % Eos % (Auto) % Baso % (Auto) % Neut # (Auto) (1.8-7.7) 10^3/u L Lymph # (Auto) (0.8-4.8) 10^3/u L Gilmer # (Auto) (0.2-0.9) 10^3/u L Eos # (Auto) (0.0-0.8) 10^3/u L Baso # (Auto) (0.0-0.1) 10^3/u L Nucleated RBC % (a uto) % Nucleated RBCs # /100WBC Specimen Type Sample Site ABG pH (7.35-7.45) ABG pCO2 (35-45) mmHg ABG pO2 (80.0-100.0) mmH g ABG HCO3 (22-26) mmol/L ABG O2 Saturation ABG Base Excess (-2.0-2.0) mmol/ L Lion Test A-a O2 Gradient (5-10) mmHg Hematocrit (42-52) % Hgb O2 Saturation (95-100) % Carboxyhemoglobin (0.4-20.1) %THgb Methemoglobin (0.4-1.5) % Total Hemoglobin (14-18) g/dL Sodium (131-143) mmol/L Potassium (3.5-5.0) mmol/L Glucose (70-115) mg/dL Ionized Calcium (1.1-1.4) mmol/L O2 Delivery Device O2 Liters/Min % FiO2 % Bibliographic Services Specialist ID Chloride (98-107) mmol/L Carbon Dioxide (22-29) mmol/L Anion Gap (5-19) BUN (8-23) mg/dL Creatinine (0.7-1.2) mg/dL GFR Calculation POC Glucose (70-110) mg/dL Estimat Average Gl ucose 192 Hemoglobin A1c 8.3 H (4.0-6.0) % Calculated Osmolal ity (285-295) mOsm/k g Lactic Acid 0.8 (0.5-2.2) mmol/L Calcium (8.5-10.5) mg/dL Phosphorus 4.0 (2.5-4.5) mg/dL Magnesium (1.7-2.3) mg/dL Total Bilirubin (0.15-1.2) mg/dL AST (0-40) U/L ALT (0-41) U/L Alkaline Phosphata se (40-130) IU/L NT-Pro-B Natriuret Pep (0-450) pg/mL Total Protein (6.6-8.7) g/dL Albumin (3.5-5.2) g/dL Globulin (1.3-4.6) g/dL Lipase (13-60) U/L TSH 15.67 H (0.27-4.20) uIU/ mL Urine Color (Yellow) Urine Appearance (CLEAR) Urine pH (5-7) Ur Specific Gravit y (1.005-1.030) Urine Protein (Negative) Urine Glucose (UA) (Normal) Urine Ketones (Negative) Urine Blood (Negative) Urine Nitrate (Negative) Urine Bilirubin (Negative) Urine Urobilinogen (Negative) mg/dL Ur Leukocyte Teri ase (Negative) Urine RBC (0-2) /hpf Urine WBC (0-5) /hpf Ur Squamous Epith Cells (0-5) /hpf Amorphous Sediment Urine Bacteria (NONE) /hpf Hyaline Casts /lpf Urine Mucus /hpf 04/21/20 04/21/20 Range/Units 10:26 11:24 WBC (4.0-10.0) 10^3/ uL RBC (4.1-5.3) 10^6/u L Hgb (11.7-16.6) g/dL Hct (42.0-52.0) % MCV (80-94) fL MCH (28.0-34.0) pg MCHC (30.0-36.0) g/dL RDW (12.1-15.1) % Plt Count (130-400) 10^3/c mm MPV (7.4-10.4) fL Neut % (Auto) % Lymph % (Auto) % Gilmer % (Auto) % Eos % (Auto) % Baso % (Auto) % Neut # (Auto) (1.8-7.7) 10^3/u L Lymph # (Auto) (0.8-4.8) 10^3/u L Gilmer # (Auto) (0.2-0.9) 10^3/u L Eos # (Auto) (0.0-0.8) 10^3/u L Baso # (Auto) (0.0-0.1) 10^3/u L Nucleated RBC % (a uto) % Nucleated RBCs # /100WBC Specimen Type Sample Site ABG pH (7.35-7.45) ABG pCO2 (35-45) mmHg ABG pO2 (80.0-100.0) mmH g ABG HCO3 (22-26) mmol/L ABG O2 Saturation ABG Base Excess (-2.0-2.0) mmol/ L Lion Test A-a O2 Gradient (5-10) mmHg Hematocrit (42-52) % Hgb O2 Saturation (95-100) % Carboxyhemoglobin (0.4-20.1) %THgb Methemoglobin (0.4-1.5) % Total Hemoglobin (14-18) g/dL Sodium (131-143) mmol/L Potassium (3.5-5.0) mmol/L Glucose (70-115) mg/dL Ionized Calcium (1.1-1.4) mmol/L O2 Delivery Device O2 Liters/Min % FiO2 % Bibliographic Services Specialist ID Chloride (98-107) mmol/L Carbon Dioxide (22-29) mmol/L Anion Gap (5-19) BUN (8-23) mg/dL Creatinine (0.7-1.2) mg/dL GFR Calculation POC Glucose 125 (70-110) mg/dL Estimat Average Gl ucose Hemoglobin A1c (4.0-6.0) % Calculated Osmolal ity (285-295) mOsm/k g Lactic Acid (0.5-2.2) mmol/L Calcium (8.5-10.5) mg/dL Phosphorus (2.5-4.5) mg/dL Magnesium (1.7-2.3) mg/dL Total Bilirubin (0.15-1.2) mg/dL AST (0-40) U/L ALT (0-41) U/L Alkaline Phosphata se (40-130) IU/L NT-Pro-B Natriuret Pep (0-450) pg/mL Total Protein (6.6-8.7) g/dL Albumin (3.5-5.2) g/dL Globulin (1.3-4.6) g/dL Lipase (13-60) U/L TSH (0.27-4.20) uIU/ mL Urine Color Yellow (Yellow) Urine Appearance Clear (CLEAR) Urine pH 5 (5-7) Ur Specific Gravit y 1.010 (1.005-1.030) Urine Protein 1+ H (Negative) Urine Glucose (UA) Norm (Normal) Urine Ketones Negative (Negative) Urine Blood Neg (Negative) Urine Nitrate Negative (Negative) Urine Bilirubin Neg (Negative) Urine Urobilinogen Norm (Negative) mg/dL Ur Leukocyte Teri ase Negative (Negative) Urine RBC None (0-2) /hpf Urine WBC None (0-5) /hpf Ur Squamous Epith Cells 0-4 H (0-5) /hpf Amorphous Sediment Not Reportable Urine Bacteria Trace (NONE) /hpf Hyaline Casts 0-4 H /lpf Urine Mucus Trace /hpf Discharge Plan Discharge Patient Disposition: Admitted As Inpatient Admit Provider: Keesha Arnold Condition: Stable Referrals: Grover Brooks [Primary Care Provider] - Discharge Date/Time: 04/21/20 15:45 Coding Level of Care Code ED Geodetic Surveyor Technologist for Maylin Morales
[2020-04-23] MEDS: FUROsemide 100 MG in sodium chloride 0.9% 40 ML IV ×2 (02:00→09:47)
--- NOTE | 2020-04-23 02:00 | PC.NURSE ---
Per verbal order by Dr. Milton start Lasix drip at 10 mg/hr. Report urine output to Dr. Milton in 2 hours.
[2020-04-23 02:07] LABS: C Reactive Protein 13.5 mg/L (0.0-4.9)
--- NOTE | 2020-04-23 02:24 | ECG_ITS ---
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 Measurements Intervals [place] Rate: 54 P: -23 GA: 182 QRS: -22 QRSD: 91 T: 124 QT: 458 QTc: 436 Interpretive Statements SINUS BRADYCARDIA BORDERLINE LEFT AXIS DEVIATION [QRS AXIS < -20] LOW QRS VOLTAGE IN EXTREMITY LEADS [QRS DEFLECTION < 0.5 mV IN LIMB LEADS] MODERATE T-WAVE ABNORMALITY, CONSIDER LATERAL ISCHEMIA [-0.1+ mV T WAVE IN I/aVL/V5/V6] Compared to ECG 02/13/2020 10:18:15 Low QRS voltage now present Sinus rhythm no longer present T-wave abnormality still present Possible ischemia still present Electronically Signed On 04-23-2020 18:32:35 CDT by Sonja Smith M.D. [email or web address]
[2020-04-23] MEDS: heparin 5,000 unit/mL INJ 1 mL 5000 UNIT SUBCUT (02:35)
[2020-04-23] MEDS: vancomycin 1,000 MG in sodium chloride 0.9% 250 ML 250 MG IV (02:35)
[2020-04-23] MEDS: piperacillin-tazobactam 3.375 GM in sodium chloride 0.9% (plus) 50 ML IV ×3 (02:59→17:32)
[2020-04-23 03:06] LABS: Basophils # 0.1 10^3/uL (0.0-0.1); Basophils % 0.9 %; Eosinophils # 0.2 10^3/uL (0.0-0.8); Hematocrit 27.7 % (42.0-52.0); Hemoglobin 7.6 g/dL (11.7-16.6); Lymphocytes # 0.8 10^3/uL (0.8-4.8); Lymphocytes % 10.4 %; Mean Corpuscular HGB Conc 27.4 g/dL (30.0-36.0); Mean Corpuscular Hemoglobin 25.2 pg (28.0-34.0); Mean Corpuscular Volume 91.7 fL (80-94); Mean Platelet Volume 9.8 fL (7.4-10.4); Monocytes # 0.9 10^3/uL (0.2-0.9); Monocytes % 10.7 %; Neutrophils # 6.02 10^3/uL (1.8-7.7); Neutrophils % 75.5 %; Nucleated Red Blood Cells % 0 %; Platelet Count 313 10^3/cmm (130-400); Red Blood Count 3.02 10^6/uL (4.1-5.3)
[2020-04-23 03:12] LABS: ABG PCO2 37.9 mmHg (35-45); ABG PH Result 7.43 (7.35-7.45); Arterial Blood Gas Hematocrit 23.5 % (42-52); Base Excess ABG 0.8 mmol/L (-2.0-2.0); Blood Gas Sample Site Brachial, right; Blood Gas Sample Type Arterial; HCO3 ABG 25.1 mmol/L (22-26); Oxygen Device VENT
[2020-04-23 03:34] LABS: Alanine Aminotransferase 16 U/L (0-41); Albumin Level 3.1 g/dL (3.5-5.2); Alkaline Phosphatase 123 IU/L (40-130); Anion Gap 18.5 (5-19); Aspartate Amino Transferase 19 U/L (0-40); Blood Urea Nitrogen 55 mg/dL (8-23); Calcium 8.9 mg/dL (8.5-10.5); Carbon Dioxide 22 mmol/L (22-29); Chloride 108 mmol/L (98-107); Globulin 3.2 g/dL (1.3-4.6); Glucose 77 mg/dL (65-115); Osmolality Calculated 312 mOsm/kg (285-295); Potassium 4.5 mmol/L (3.5-5.1); Sodium 144 mmol/L (136-145); Total Bilirubin 0.5 mg/dL (0.15-1.2); Total Protein 6.3 g/dL (6.6-8.7)
[2020-04-23 03:37] LABS: Troponin 5 2HR 47.99 ng/L (0-15); Troponin 5 2HR Delta 2.99 ABS# (0-10)
--- NOTE | 2020-04-23 04:19 | PC.NURSE ---
Reported urine output of [address] Milton. Order given to continue Lasix drip at 10 mg/hr and continue to monitor urine output.
--- NOTE | 2020-04-23 05:05 | PC.NURSE ---
Per Dr. Milton hold Imdur ER for now as it cannot be crushed and put through OG tube.
[2020-04-23 05:48] LABS: INR 1.16 (0.8-1.2)
--- NOTE | 2020-04-23 07:50 | PC.OT ---
OT NOTE: OT EVALUATION ORDERS RECEIVED. PATIENT IS INTUBATED; WILL HOLD OT EVALUATION AT THIS TIME.
[2020-04-23 07:55] LABS: Troponin 5 6HR 49.57 ng/L (0-15); Troponin 5 6HR Delta 4.57 ng/L (0-12)
[2020-04-23 08:58] LABS: Procalcitonin 0.14 ng/mL (0-0.5)
--- NOTE | 2020-04-23 09:35 | P.PN_ITS ---
Subjective Subjective: Interval history: Patient had worsening hypoxia overnight and placed on BiPAP. Unable to tolerate had increased agitation and confusion. Ultimately had respiratory distress and required intubation and mechanical ventilation Started on empiric antibiotics and transition from IV Bumex to Lasix drip. Discussed with patient's son this morning and made him aware of events overnight. He verbalized understanding. Discussed with him that urine output remains minimal, may require dialysis for continued removal of fluid, he verbalized understanding. After discussing with him plan about continuing with mechanical ventilation and continuing to wean as tolerated along with potential dialysis son then reported that patient's primary care provider has been working on arranging hospice for patient at home. Discussion with patient's son that this is a drastic change from what is currently being done. Discussed with him that typically on hospice dialysis is not continued, resuscitative efforts are usually not performed, son verbalized understanding. He stated that he is noticed that his dad's health is drastically declined over the past several months. He stated that he is going to discuss with patient's primary care provider again tomorrow and make further decisions about resuscitative measures and further plan of care. According to the son this has been a discussion with Dr. Brooks at the [facility] in the outpatient setting Vitals/I&O/Wt Last Vital Signs Temp 97.6 F 04/23/20 09:05 Pulse 54 L 04/23/20 08:00 Resp 12 04/23/20 08:30 BP 108/53 04/23/20 08:00 Pulse Ox 98 04/23/20 08:00 04/22/20 04/23/20 04/23/20 22:59 06:59 14:59 Intake Total 220 / 580 324.955 / 904.955 Output Total 350 / 750 Balance 220 / 180 -25.045 / 154.955 Weight last 48 hrs Weight 91.626 kg Weight 94.943 kg Physical Exam Const: GENERAL APPEARANCE: patient mechanically ventilated HENMT: COMMON NORMALS: normocephalic and atraumatic HEAD & SCALP: normocephalic and atraumatic Eye: COMMON NORMALS: Equal, round and reactive pupils present PUPIL: Yes Equal, round and reactive pupils present Neck/C-Spine: COMMON NORMALS: supple GENERAL: Yes normal visual inspection Resp: OTHER: ET tube in place, diminished breath sounds bilaterally, crackles bilaterally Cardio: COMMON NORMALS: regular rhythm RATE: bradycardic RHYTHM: regular rhythm GI: COMMON NORMALS: Soft to palpation and non-tender INSPECTION: No abdominal distension AUSCULTATION: Yes normoactive bowel sounds PALPATION: Yes Soft to palpation Extremity: COMMON NORMALS: no calf tenderness OTHER: 2+ pitting edema in the lower extremities bilaterally Neuro: OTHER: intubated and sedated Skin: OTHER: Dry skin on the lower extremities bilaterally Urinary Catheter Management^: Jaquez: Cath Placed During This Visit: yes Reason for Continuing Indwelling Catheter: Acute Urinary Retention or Obstruction Urinary Catheter Date of Insertion: 04/22/20 Urinary Catheter Time of Insertion: 18:43 Data : 04/23/20 02:01 04/23/20 02:01 Micro: Microbiology 04/23/20 03:45 Bacterial Antigens - Final Urine,Voided 04/23/20 06:44 Blood Culture - Preliminary Blood SPECIMEN COLLECTED 04/23/20 02:01 Blood Culture - Preliminary Blood SPECIMEN COLLECTED A&P Assessment and plan (1) Acute on chronic diastolic (congestive) heart failure: Intubated overnight ICU admission Cardiology consult appreciated Repeat ECHO pending IV lasix drip started, had changed to Bumex yesterday with addition of metolazone but had minimal urine output Consult to nephrology yesterday, Appreciate assistance in patient's care. Patient may require dialysis if no improvement Status: Acute (2) Chronic anemia: Acute on chronic anemia with a hemoglobin drop again to 7.6 today s/p transfusion on admission with additional unit ordered overnight FOBT positive, but no large amount of bleeding Consider inpatient EGD once cardiac/respiratory status improved Status: Acute (3) Chronic kidney disease: Chronic kidney disease with a baseline creatinine around 2, elevated to 2.7 with increasing BUN of 55 IV bumex stopped and placed on lasix drip Will discuss with nephrology about potential dialysis. Discussed with son today and he reported he is ok with it if needed, however he then reported that PCP has been in discussion with patient about hospice. Status: Chronic Qualifiers: Chronic kidney disease stage: stage 3 (moderate) Qualified Code(s): N18.3 - Chronic kidney disease, stage 3 (moderate) (4) Ventricular tachycardia: Prior history of ventricular tachycardia, continue on amiodarone 200 mg daily, metoprolol decreased to 25mg BID but will hold if HR less than 60 Status: Resolved (5) High risk medication use: Status: Acute (6) Edema, peripheral: Severe peripheral lower extremity edema, ANN hose ordered, plan for diuresis as above Status: Acute (7) Dyslipidemia: Continue home statin Status: Acute (8) Hypertension: Soft BP today Hold amlodipine metoprolol on hold due to bradycardia Status: Acute Qualifiers: Hypertension type: essential hypertension Qualified Code(s): I10 - Essential (primary) hypertension (9) Dementia: Status: Chronic Qualifiers: Dementia type: Lewy body dementia Dementia behavioral disturbance: without behavioral disturbance Qualified Code(s): G31.83 - Dementia with Lewy bodies; F02.80 - Dementia in other diseases classified elsewhere without behavioral disturbance (10) Diabetes mellitus: Lantus discontinued Glipizide on hold Status: Chronic Qualifiers: Diabetes mellitus type: type 2 Diabetes mellitus fdc insulin use: without intermodal dispatcher use Diabetes mellitus complication status: with hyperglycemia Qualified Code(s): E11.65 - Type 2 diabetes mellitus with hyperglycemia (11) Atrial fibrillation: Currently in sinus rhythm, continue amiodarone, metoprolol decreased but hold if HR<60, not on anticoagulation due to concern for anemia Status: Acute Qualifiers: Atrial fibrillation type: paroxysmal Qualified Code(s): I48.0 - Paroxysmal atrial fibrillation Additional A&P Information Acute respiratory failure: intubated on 04/22/20, RTAT, SBT daily, diuresis and empiric antibiotic coverage. sedation with propofol, wean off fentanyl due to hypotension Difficult jaquez placement: Jaquez placed by Dr. Del Real, appreciate consultation. Patient had pulled on Jaquez prior to intubation, now with hematuria due to trauma. Continue close monitoring. Question of underlying pneumonia: started on empiric antibiotics due to respiratory failure, DVT prophylaxis: SCDs, no pharmacologic prophylaxis due to anemia Diet: NPO GI ppx: PPI CODE STATUS: Full code Attestations Medical Necessity Statement*: Requires ICU admission due to acute respiratory failure with concern for CHF and JED on CKD Coding Level of Care Code Acute Mineral Technologist for g Fwd Diagnoses Acute on chronic diastolic (congestive) heart failure I50.33 Chronic anemia D64.9 Chronic kidney disease N18.3 Chronic kidney disease stage: stage 3 (moderate) Ventricular tachycardia I47.2 High risk medication use Z79.899 Edema, peripheral R60.9 Dyslipidemia E78.5 Hypertension I10 Hypertension type: essential hypertension Dementia G31.83; F02.80 Dementia type: Lewy body dementia Dementia behavioral disturbance: without behavioral disturbance Diabetes mellitus E11.65 Diabetes mellitus type: type 2 Diabetes mellitus intermodal dispatcher insulin use: without fdc use Diabetes mellitus complication status: with hyperglycemia Atrial fibrillation I48.0 Atrial fibrillation type: paroxysmal
[2020-04-23] MEDS: metOLazone 5 MG Tablet PO (09:38)
[2020-04-23] MEDS: pantoprazole 40 mg SDV IVP (09:38)
[2020-04-23] MEDS: hyDRALAzine 25 mg Tablet PO ×3 (09:38→21:18)
[2020-04-23] MEDS: ferrous sulfate EC 325 mg Tablet PO (09:38)
[2020-04-23] MEDS: gabapentin 400 mg Capsule PO (09:38)
[2020-04-23] MEDS: amiodarone 200 mg Tablet PO (09:39)
[2020-04-23] MEDS: amlodipine 10 mg Tablet PO (09:39)
[2020-04-23] MEDS: potassium chloride oral liq 20 mEq/15 mL UDC 10 MEQ PO (09:39)
[2020-04-23] MEDS: eucerin cream 113 gm Jar 1 APPLIC TOPICAL ×2 (10:36→17:32)
[2020-04-23 11:50] LABS: Glucose Point of Care 63 mg/dL (70-110)
[2020-04-23 11:51] LABS: Glucose Point of Care 73 mg/dL (70-110)
[2020-04-23] MEDS: sodium chloride 0.9% (100 ml) 100 ML (12:06)
[2020-04-23 13:40] LABS: ABG PCO2 46.1 mmHg (35-45); ABG PH Result 7.34 (7.35-7.45); Arterial Blood Gas Hematocrit 26.5 % (42-52); Base Excess ABG -0.8 mmol/L (-2.0-2.0); Blood Gas Allen Test Pos; Blood Gas Operator Identificat CAK; Blood Gas Sample Site Radial, right; Blood Gas Sample Type Arterial; Oxygen Device VENT; PO2 ABG 73.9 mmHg (80.0-100.0)
[2020-04-23] MEDS: FUROsemide 100 MG in sodium chloride 0.9% 40 ML 7.5 MG IV (15:25)
--- NOTE | 2020-04-23 16:19 | P.PN_ITS ---
Subjective Subjective: Interval history: Resp failure in the night, BIPAP and then intubated. Maintaining sats now on FiO2 40%. UO 750mL yesterday. Hemodynamics remain stable. On going discussions with son noted per Dr Arnold; possibility of needing dialysis over next 24-48hrs Medications: Reviewed: Yes Medication Review Details: Current Medications Acetaminophen (Tylenol) 650 mg PO Q6H PRN PRN Reason: Mild/Mod Pain Or Temp >/= 101 Hydrocodone Bitart/Acetaminophen ([place] 5-325 Mg) 1 tab PO Q4H PRN PRN Reason: MODERATE TO SEVERE PAIN Amiodarone HCl (Cordarone) 200 mg PO DAILY [facility] Last Admin: 04/22/20 08:49 Dose: 200 mg Documented by: Amlodipine Besylate (Norvasc) 10 mg PO DAILY [facility] Last Admin: 04/22/20 08:49 Dose: 10 mg Documented by: Atorvastatin Calcium (Lipitor) 20 mg PO BEDTIME [facility] Last Admin: 04/21/20 21:36 Dose: 20 mg Documented by: Bisacodyl (Dulcolax) 10 mg PO DAILY PRN PRN Reason: CONSTIPATION Bumetanide (Bumex) 1 mg IV Q12H [facility] Last Admin: 04/22/20 10:31 Dose: 1 mg Documented by: Dextrose (D50w) 25 ml IVP ONCE PRN; Protocol PRN Reason: hypoglycemia protocol Dextrose (D50w) 50 ml IVP PRN PRN; Protocol PRN Reason: hypoglycemia protocol Ferrous Sulfate (Ferrous Sulfate) 325 mg PO DAILY [facility] Last Admin: 04/22/20 08:49 Dose: 325 mg Documented by: Gabapentin (Neurontin) 400 mg PO DAILY [facility] Last Admin: 04/22/20 08:49 Dose: 400 mg Documented by: Glucagon (Glucagen) 1 mg IM ONCE PRN; Protocol PRN Reason: Adult Acute Hypoglycemia Prot. Hydralazine HCl (Apresoline) 25 mg PO TID [facility] Last Admin: 04/22/20 15:38 Dose: 25 mg Documented by: Dextrose (D5w) 500 mls @ 100 mls/hr IV ONCE PRN; Protocol PRN Reason: Adult Acute Hypoglycemia Prot Insulin Aspart (Novolog) 0 unit SUBCUT BEDTIME [facility]; Protocol Last Admin: 04/21/20 21:26 Dose: Not Given Documented by: Insulin Aspart (Novolog) 0 unit SUBCUT TIDWM [facility]; Protocol Last Admin: 04/22/20 11:53 Dose: 4 unit Documented by: Insulin Glargine (Lantus) 15 unit SUBCUT BEDTIME [facility] Last Admin: 04/21/20 21:31 Dose: Not Given Documented by: Isosorbide Mononitrate (Imdur) 60 mg PO QAM [facility] Last Admin: 04/22/20 08:49 Dose: 60 mg Documented by: Metolazone (Zaroxolyn) 5 mg PO DAILY [facility] Last Admin: 04/22/20 11:51 Dose: 5 mg Documented by: Metoprolol Tartrate (Lopressor) 50 mg PO BID [facility] Last Admin: 04/22/20 08:49 Dose: 50 mg Documented by: Morphine Sulfate (Morphine) 2 mg IVP Q4H PRN PRN Reason: SEVERE PAIN Naloxone HCl (Narcan) 0.1 mg IVP Q2M PRN PRN Reason: OPIATERV Ondansetron HCl (Zofran) 4 mg IVP Q8H PRN PRN Reason: vomiting, or N/V if npo Pantoprazole Sodium (Protonix) 40 mg PO DAILY [facility] Last Admin: 04/22/20 08:49 Dose: 40 mg Documented by: Potassium Chloride (Klor-Con 10) 10 meq PO DAILY [facility] Last Admin: 04/22/20 08:49 Dose: 10 meq Documented by: Trazodone HCl (Desyrel) 50 mg PO BEDTIME [facility] Last Admin: 04/21/20 21:37 Dose: 50 mg Documented by: Vitals/I&O/Wt Last Vital Signs Temp 97.5 F L 04/23/20 15:10 Pulse 56 L 04/23/20 15:10 Resp 16 04/23/20 15:10 BP 111/53 04/23/20 15:10 Pulse Ox 93 04/23/20 15:10 04/23/20 04/23/20 04/23/20 06:59 14:59 22:59 Intake Total 374.955 / 954.955 194.310 / 194.310 478.167 / 672.477 Output Total 350 / 750 405 / 405 300 / 705 Balance 24.955 / 204.955 -210.690 / -210.690 178.167 / -32.523 Weight last 48 hrs Weight 91.626 kg Weight 94.943 kg Physical Exam Narrative: EXAM NARRATIVE: Constitutional: Sedated HEENT: Wet mucosa, no jvp, non icteric Lungs: Bilaterally clear coarse, diminished all lung zones CVS: S1 S2, no murmurs Abdo: Soft, BS ok Ext 4: global edema, peripheral perfusion with no cyanosis Neurological: Grossly non-focal Urinary Catheter Management^: Whitley: Cath Placed During This Visit: yes Reason for Continuing Indwelling Catheter: Acute Urinary Retention or Ob struction Urinary Catheter Date of Insertion: 04/22/20 Urinary Catheter Time of Insertion: 18:43 Data : 04/23/20 02:01 04/23/20 02:01 Micro: Microbiology 04/23/20 11:30 Gram Stain - Final Sputum - Endotracheal Tube Aspirate 04/23/20 03:45 Bacterial Antigens - Final Urine,Voided 04/23/20 06:44 Blood Culture - Preliminary Blood SPECIMEN COLLECTED 04/23/20 02:01 Blood Culture - Preliminary Blood SPECIMEN COLLECTED A&P Additional A&P Information 1. JED on CKD Creatinine is drifting up since hospitalization now measured at 2.7 with a urine output that is somewhat lackluster. This is consistent with cardiorenal syndrome. Lasix GTT and Metolazone on board Will monitor throughout the day as he is stable in reagard to volume and has marginal urine outout On going discussion about goals of care regarding need for dialysis s Strict ins and outs, avoid usual nephrotoxic medication. 2. Hypothyroid free T3/T4 levels DEfer to Dr Arnold and medical team 3. Hypertension. Currently on combination antihypertensives and he is currently rate controlled with amiodarone. 4. Anemia - serial H/H, will check iron/TIBC with view to giving EPO/iv iron Thank you for consultation, as always is a pleasure to follow these patients with you Antonino Harden MD Nephrology [phone] Patient seen and examined via telemedicine, with the assistance of the bedside RN Attestations Medical Necessity Statement*: eval for JED Coding Level of Care Code Acute Buttonhole Maker for [facility]
[2020-04-23 16:56] LABS: Glucose Point of Care 81 mg/dL (70-110)
--- NOTE | 2020-04-23 17:08 | PC.PT ---
PT note; patient is intubated and sedated, unable to participate with therapy at this time, will follow.
--- NOTE | 2020-04-23 19:00 | PC.NURSE ---
Fentanyl drip is off at this time.
--- NOTE | 2020-04-23 19:13 | P.PN_ITS ---
Subjective Subjective: Interval history: Patient went into respiratory failure and was placed on BiPAP which she was unable to tolerate because of worsening agitation and confusion and ultimately required intubation and was transferred to ICU. He was started on Lasix 10 mg/h drip overnight. He had about 550 mL of urine output overnight. This morning at the time of evaluation patient is intubated and mechanically ventilated. Lasix drip has been increased to 15 mg/h. Patient was bradycardic in 50s and hence metoprolol was held. Medications: Reviewed: Yes Medication Review Details: Current Medications Acetaminophen (Tylenol) 650 mg PO Q6H PRN PRN Reason: Mild/Mod Pain Or Temp >/= 101 Hydrocodone Bitart/Acetaminophen ([place] 5-325 Mg) 1 tab PO Q4H PRN PRN Reason: MODERATE TO SEVERE PAIN Amiodarone HCl (Cordarone) 200 mg PO DAILY [facility] Last Admin: 04/23/20 09:39 Dose: 200 mg Documented by: Amlodipine Besylate (Norvasc) 10 mg PO DAILY [facility] Last Admin: 04/23/20 09:39 Dose: 10 mg Documented by: Atorvastatin Calcium (Lipitor) 20 mg PO BEDTIME [facility] Last Admin: 04/22/20 20:57 Dose: 20 mg Documented by: Bisacodyl (Dulcolax) 10 mg PO DAILY PRN PRN Reason: CONSTIPATION Dextrose (D50w) 25 ml IVP ONCE PRN; Protocol PRN Reason: hypoglycemia protocol Dextrose (D50w) 50 ml IVP PRN PRN; Protocol PRN Reason: hypoglycemia protocol Ferrous Sulfate (Ferrous Sulfate) 325 mg PO DAILY [facility] Last Admin: 04/23/20 09:38 Dose: 325 mg Documented by: Gabapentin (Neurontin) 400 mg PO DAILY [facility] Last Admin: 04/23/20 09:38 Dose: 400 mg Documented by: Glucagon (Glucagen) 1 mg IM ONCE PRN; Protocol PRN Reason: Adult Acute Hypoglycemia Prot. Hydralazine HCl (Apresoline) 25 mg PO TID [facility] Last Admin: 04/23/20 14:38 Dose: 25 mg Documented by: Dextrose (D5w) 500 mls @ 100 mls/hr IV ONCE PRN; Protocol PRN Reason: Adult Acute Hypoglycemia Prot Propofol (Diprivan) 1,000 mg in 100 mls @ 0 mls/hr IV .Q0M [facility]; Protocol Last Admin: 04/23/20 15:52 Dose: 30 mcg/kg/min, 17.1 mls/hr Documented by: Fentanyl 1,000 mcg/ Sodium (Chloride) 100 mls @ 0 mls/hr IV .Q0M [facility]; Protocol Last Titration: 04/23/20 09:59 Dose: 15 mcg/hr, 1.5 mls/hr Documented by: Furosemide 100 mg/ Sodium (Chloride) 50 mls @ 0 mls/hr IV .Q0M [facility]; Protocol Last Admin: 04/23/20 15:25 Dose: 15 mg/hr, 7.5 mls/hr Documented by: Vancomycin HCl 1,000 mg/ (Sodium Chloride) 250 mls @ 250 mls/hr IV Q36H [facility]; Protocol Last Infusion: 04/23/20 03:35 Dose: Infused Documented by: Piperacillin Sod/Tazobactam (Sod 3.375 gm/ Sodium Chloride) 50 mls @ 12.5 mls/hr IV Q8H [facility]; Protocol Last Admin: 04/23/20 17:32 Dose: 12.5 mls/hr Documented by: Insulin Aspart (Novolog) 0 unit SUBCUT BEDTIME [facility]; Protocol Last Admin: 04/22/20 20:56 Dose: 2 unit Documented by: Insulin Aspart (Novolog) 0 unit SUBCUT TIDWM [facility]; Protocol Last Admin: 04/23/20 16:49 Dose: Not Given Documented by: Isosorbide Mononitrate (Imdur) 60 mg PO QAM [facility] Last Admin: 04/23/20 05:07 Dose: Not Given Documented by: Metolazone (Zaroxolyn) 5 mg PO DAILY [facility] Last Admin: 04/23/20 09:38 Dose: 5 mg Documented by: Metoprolol Tartrate (Lopressor) 25 mg PO BID [facility] Last Admin: 04/23/20 17:21 Dose: Not Given Documented by: Morphine Sulfate (Morphine) 2 mg IVP Q4H PRN PRN Reason: SEVERE PAIN Last Admin: 04/22/20 19:49 Dose: 2 mg Documented by: Multi-Ingredient Ointment (Eucerin) 1 applic TOPICAL BID [facility] Last Admin: 04/23/20 17:32 Dose: 1 applic Documented by: Naloxone HCl (Narcan) 0.1 mg IVP Q2M PRN PRN Reason: OPIATERV Ondansetron HCl (Zofran) 4 mg IVP Q8H PRN PRN Reason: vomiting, or N/V if npo Pantoprazole Sodium (Protonix) 40 mg IVP DAILY [facility] Last Admin: 04/23/20 09:38 Dose: 40 mg Documented by: Potassium Chloride (Potassium Chloride Oral Liquid) 10 meq PO DAILY [facility] Last Admin: 04/23/20 09:39 Dose: 10 meq Documented by: Trazodone HCl (Desyrel) 50 mg PO BEDTIME [facility] Last Admin: 04/22/20 19:53 Dose: 50 mg Documented by: Vitals/I&O/Wt Last Vital Signs Temp 97.5 F L 04/23/20 18:00 Pulse 56 L 04/23/20 18:00 Resp 18 04/23/20 18:00 BP 121/52 04/23/20 18:00 Pulse Ox 93 04/23/20 18:00 04/23/20 04/23/20 04/23/20 06:59 14:59 22:59 Intake Total 374.955 / 954.955 194.310 / 194.310 478.167 / 672.477 Output Total 350 / 750 405 / 405 650 / 1055 Balance 24.955 / 204.955 -210.690 / -210.690 -171.833 / -382.523 Weight last 48 hrs Weight 202 lb Weight 209 lb 5 oz Physical Exam Narrative: EXAM NARRATIVE: Const COMMON NORMALS: he is intubated and mechanically ventilated NUTRITIONAL APPEARANCE: obese [facility] COMMON NORMALS: normocephalic, atraumatic, external ears normal HEAD & SCALP: normocephalic and atraumatic FACE & SINUS: face symmetric EXTERNAL EAR: Yes external ears normal COMMON NORMALS: Equal, round and reactive pupils present, EOMs intact bilaterally and conjunctivae normal ALIGNMENT: Yes alignment normal CONJUNCTIVA: Yes conjunctivae normal SCLERA: sclerae normal PUPIL: Yes Equal, round and reactive pupils present Neck/C-Spine COMMON NORMALS: supple and Thyroid normal; negative for No carotid bruits GENERAL: Yes trachea midline and Yes JVD THYROID: Thyroid normal Resp AUSCULTATION: Coarse bilateral breath sounds with diminished lung sounds in low er zones. Cardio COMMON NORMALS: regular rate, regular rhythm, S1 normal heart sound present, S2 normal heart sound present and Peripheral pulses 2+ throughout; negative for No gallops present (Cardio) JUGULAR VENOUS DISTENTION: elevated JVD PALPATION: normal PMI, no heave, no palpable S3, no palpable S4 and no thrill RATE: regular rate RHYTHM: regular rhythm HEART SOUNDS: S1 normal heart sound present, S2 normal heart sound present, no gallops and no murmurs PERIPHERAL PULSES: Peripheral pulses 2+ throughout GI COMMON NORMALS: Normal to inspection, nondistended, normoactive bowel sounds present, Soft to palpation PERCUSSION: tympanic to percussion RECTAL EXAM: Yes deferred Extremity GENERAL: Yes edema (4+ edema all the way upto thighs) Neuro Patient intubated and mechanically ventilated Skin GENERAL SKIN EXAM: other (paeu d'orange appearance) Urinary Catheter Management^: Whitley: Cath Placed During This Visit: yes Reason for Continuing Indwelling Catheter: Acute Urinary Retention or Obstruct ion Urinary Catheter Date of Insertion: 04/22/20 Urinary Catheter Time of Insertion: 18:43 Data : 04/23/20 02:01 04/23/20 02:01 Micro: Microbiology 04/23/20 11:30 Gram Stain - Final Sputum - Endotracheal Tube Aspirate 04/23/20 03:45 Bacterial Antigens - Final Urine,Voided 04/23/20 06:44 Blood Culture - Preliminary Blood SPECIMEN COLLECTED 04/23/20 02:01 Blood Culture - Preliminary Blood SPECIMEN COLLECTED A&P Assessment and plan (1) Congestive heart failure: Decompensated congestive heart failure. Left ventricle ejection fraction 45 to 50% by echo in January 2020. -Continue with Lasix drip based on urine output plan for dialysis (if family is agreeable) as per nephrology -Strict intake and output charting and daily weight. Status: Acute Qualifiers: Heart failure chronicity: chronic Heart failure type: unspecified Qualified Code(s): I50.9 - Heart failure, unspecified (2) Atrial fibrillation: Paroxysmal atrial fibrillation. -Continue amiodarone. Not on anticoagulation given GI bleed. -Metoprolol has been held. Status: Acute Qualifiers: Atrial fibrillation type: paroxysmal Qualified Code(s): I48.0 - Paroxysmal atrial fibrillation (3) Chronic kidney disease: Acute kidney injury on CKD likely in setting of renal vascular congestion -creatinine has increased today. -Nephrology on board. -Continue to monitor BMP Status: Chronic Qualifiers: Chronic kidney disease stage: stage 3 (moderate) Qualified Code(s): N18.3 - Chronic kidney disease, stage 3 (moderate) (4) Anemia: He is got 2 units of packed red blood cells. Status: Acute (5) Diabetes mellitus: Status: Chronic Qualifiers: Diabetes mellitus type: type 2 Diabetes mellitus intermediate insulin use: without group exercise instructor use Diabetes mellitus complication status: with hyperglycemia Qualified Code(s): E11.65 - Type 2 diabetes mellitus with hyperglycemia Additional A&P Information History of nonsustained ventricular tachycardia Thank you for allowing me to participate in patient's care. Please feel free to call with questions or concerns. Attestations Medical Necessity Statement*: Remains critically ill Coding Level of Care Code Acute Instrument Operator for [facility] Fwd Diagnoses Congestive heart failure I50.9 Heart failure chronicity: chronic Heart failure type: unspecified Atrial fibrillation I48.0 Atrial fibrillation type: paroxysmal Chronic kidney disease N18.3 Chronic kidney disease stage: stage 3 (moderate) Anemia D64.9 Diabetes mellitus E11.65 Diabetes mellitus type: type 2 Diabetes mellitus intermediate insulin use: without group exercise instructor use Diabetes mellitus complication status: with hyperglycemia
[2020-04-23] MEDS: trazodone 50 mg Tablet PO (21:18)
[2020-04-23] MEDS: atorvastatin 40 mg Tablet 20 MG PO (21:18)
[2020-04-23] MEDS: propofol 1,000 MG/100 ML INJ 19.9 MG IV (22:07)
[2020-04-24] VITALS (40 sets, daily range): BP systolic 99–136; BP diastolic 46–66; PULSE 54–68; RESP 12–22; TEMP 36.3–36.4; O2SAT 92–99
[2020-04-24] MEDS: FUROsemide 100 MG in sodium chloride 0.9% 40 ML 7.5 MG IV ×4 (00:08→21:13)
[2020-04-24] MEDS: piperacillin-tazobactam 3.375 GM in sodium chloride 0.9% (plus) 50 ML IV ×3 (00:53→17:14)
[2020-04-24] MEDS: morphine 4 mg/mL SDV 1 mL 2 MG IVP (00:53)
[2020-04-24] MEDS: propofol 1,000 MG/100 ML INJ 25.6 MG IV ×5 (03:50→23:00)
[2020-04-24 05:02] LABS: Basophils # 0.1 10^3/uL (0.0-0.1); Basophils % 0.9 %; Eosinophils # 0.5 10^3/uL (0.0-0.8); Eosinophils % 5.1 %; Hemoglobin 9.7 g/dL (11.7-16.6); Lymphocytes # 0.9 10^3/uL (0.8-4.8); Mean Corpuscular HGB Conc 28.5 g/dL (30.0-36.0); Mean Corpuscular Hemoglobin 25.7 pg (28.0-34.0); Mean Corpuscular Volume 90.2 fL (80-94); Mean Platelet Volume 9.7 fL (7.4-10.4); Monocytes # 1.1 10^3/uL (0.2-0.9); Monocytes % 12.1 %; Neutrophils # 6.59 10^3/uL (1.8-7.7); Neutrophils % 71.3 %; Nucleated Red Blood Cells % 0 %; Platelet Count 290 10^3/cmm (130-400); Red Blood Count 3.77 10^6/uL (4.1-5.3); White Blood Count 9.2 10^3/uL (4.0-10.0)
[2020-04-24 05:05] LABS: INR 1.12 (0.8-1.2)
[2020-04-24 05:21] LABS: Alanine Aminotransferase 17 U/L (0-41); Albumin Level 3.3 g/dL (3.5-5.2); Alkaline Phosphatase 145 IU/L (40-130); Anion Gap 23.9 (5-19); Aspartate Amino Transferase 27 U/L (0-40); Blood Urea Nitrogen 54 mg/dL (8-23); Calcium 8.7 mg/dL (8.5-10.5); Carbon Dioxide 21 mmol/L (22-29); Chloride 105 mmol/L (98-107); Globulin 2.5 g/dL (1.3-4.6); Glucose 71 mg/dL (65-115); Osmolality Calculated 315 mOsm/kg (285-295); Potassium 3.9 mmol/L (3.5-5.1); Sodium 146 mmol/L (136-145); Total Bilirubin 0.6 mg/dL (0.15-1.2); Total Protein 5.8 g/dL (6.6-8.7)
[2020-04-24 05:33] LABS: Lactic Sepsis W/Reflex 0.7 mmol/L (0.5-2.2)
[2020-04-24 05:58] LABS: C Reactive Protein 34.8 mg/L (0.0-4.9); Magnesium 2.3 mg/dL (1.7-2.3); Phosphorus 6.4 mg/dL (2.5-4.5)
[2020-04-24 06:05] LABS: Procalcitonin 0.15 ng/mL (0-0.5)
[2020-04-24 06:06] LABS: ABG PCO2 52.2 mmHg (35-45); ABG PH Result 7.29 (7.35-7.45); Arterial Blood Gas Hematocrit 29.1 % (42-52); Blood Gas Sample Site Radial, right; Blood Gas Sample Type Arterial; HCO3 ABG 24.9 mmol/L (22-26); Oxygen Device VENT
[2020-04-24 06:16] LABS: Creatine Phosphokinase 317 U/L (39-308); Iron 27 ug/dL (59-158)
--- NOTE | 2020-04-24 07:00 | XR_ITS ---
WS: [id number] PORTABLE CHEST HISTORY: sob COMPARISON: 04/23/2020 Endotracheal tube in good position. Nasogastric tube with tip in the LEFT upper abdomen also in good position. There has been a moderate improvement in aeration bilaterally. Less areas of consolidation. There is mild continued interstitial thickening. Small bilateral pleural effusions. Cardiac size: Mildly enlarged cardiac silhouette. Mediastinum/Aorta: Mild atherosclerosis aorta. Thoracic spondylosis. XR/XR chest 1V portable [id number] IMPRESSION: 1. Endotracheal and nasogastric tubes are in good position. 2. Mild improvement in aeration bilaterally. Continued mild interstitial thick ening is probably pneumonitis. 3. Small bilateral pleural effusions.
--- NOTE | 2020-04-24 07:00 | USCV_ITS ---
ИринаGagan charles Age: 74 Gender: M : 1945 Exam Date: 04/24/2020 08:23 Ordering Phys: Sonja Smith MD ([email or web address]) Technologist: Edwin Nicholson [place] [facility] [place] LV FUNCTION AND RWMA BP: 111 / 60 HR: 55 Rhythm: Sinus Technical Quality: Adequate MEASUREMENTS (Male / Female) Normal Values 2D ECHO LV Ejection Fraction MOD 2C 53.1 % LV Ejection Fraction 2C AL 53.6 % FINDINGS Left Ventricle Right Ventricle Right Atrium Left Atrium Mitral Valve Aortic Valve Tricuspid Valve Pulmonic Valve Pericardium Aorta CONCLUSIONS 1. This is a limited echo with ultrasound enhancing agent. Optison was used as per protocol. 2. Normal left ventricular size and hyperdynamic systolic function. Left ventricular ejection fraction estimated at 75%. No regional wall motion abnormality. 3. Normal right ventricular size and systolic function. Sonja Smith MD (Electronically Signed) Final Date: 24 April 2020 17:26 S
--- NOTE | 2020-04-24 07:25 | PC.NURSE ---
Spoke to patient's son to obtained permission for Echo with contrast. Consent obtained via the phone. Verified by second nurse Moustapha Meyer RN.
[2020-04-24 08:12] LABS: Glucose Point of Care 76 mg/dL (70-110)
[2020-04-24] MEDS: perflutren protein-a microsphr 0.22 mg/mL SDV 3 mL IV (08:53)
--- NOTE | 2020-04-24 09:33 | P.PN_ITS ---
Subjective Subjective: Interval history: Patient is admitted to the hospital with respiratory failure. He is currently intubated. He has a history of atrial fibrillation current decompensated heart failure, chronic anemia, GI bleed, type 2 diabetes, chronic kidney disease and dyslipidemia. Patient is currently intubated and sedated. Telemetry shows sinus rhythm. His urine output seems to be fair. Vitals are stable. Remains afebrile. Medications: Reviewed: Yes Medication Review Details: Current Medications Acetaminophen (Tylenol) 650 mg PO Q6H PRN PRN Reason: Mild/Mod Pain Or Temp >/= 101 Hydrocodone Bitart/Acetaminophen ([place] 5-325 Mg) 1 tab PO Q4H PRN PRN Reason: MODERATE TO SEVERE PAIN Amiodarone HCl (Cordarone) 200 mg PO DAILY [facility] Last Admin: 04/23/20 09:39 Dose: 200 mg Documented by: Amlodipine Besylate (Norvasc) 10 mg PO DAILY [facility] Last Admin: 04/23/20 09:39 Dose: 10 mg Documented by: Atorvastatin Calcium (Lipitor) 20 mg PO BEDTIME [facility] Last Admin: 04/23/20 21:18 Dose: 20 mg Documented by: Bisacodyl (Dulcolax) 10 mg PO DAILY PRN PRN Reason: CONSTIPATION Dextrose (D50w) 25 ml IVP ONCE PRN; Protocol PRN Reason: hypoglycemia protocol Dextrose (D50w) 50 ml IVP PRN PRN; Protocol PRN Reason: hypoglycemia protocol Ferrous Sulfate (Ferrous Sulfate) 325 mg PO DAILY [facility] Last Admin: 04/23/20 09:38 Dose: 325 mg Documented by: Gabapentin (Neurontin) 400 mg PO DAILY [facility] Last Admin: 04/23/20 09:38 Dose: 400 mg Documented by: Glucagon (Glucagen) 1 mg IM ONCE PRN; Protocol PRN Reason: Adult Acute Hypoglycemia Prot. Hydralazine HCl (Apresoline) 25 mg PO TID [facility] Last Admin: 04/23/20 21:18 Dose: 25 mg Documented by: Dextrose (D5w) 500 mls @ 100 mls/hr IV ONCE PRN; Protocol PRN Reason: Adult Acute Hypoglycemia Prot Propofol (Diprivan) 1,000 mg in 100 mls @ 0 mls/hr IV .Q0M [facility]; Protocol Last Admin: 04/24/20 07:47 Dose: 45 mcg/kg/min, 25.6 mls/hr Documented by: Fentanyl 1,000 mcg/ Sodium (Chloride) 100 mls @ 0 mls/hr IV .Q0M [facility]; Protocol Last Titration: 04/24/20 08:00 Dose: 25 mcg/hr, 2.5 mls/hr Documented by: Furosemide 100 mg/ Sodium (Chloride) 50 mls @ 0 mls/hr IV .Q0M [facility]; Protocol Last Admin: 04/24/20 07:48 Dose: 15 mg/hr, 7.5 mls/hr Documented by: Vancomycin HCl 1,000 mg/ (Sodium Chloride) 250 mls @ 250 mls/hr IV Q36H [facility]; Protocol Last Infusion: 04/23/20 03:35 Dose: Infused Documented by: Piperacillin Sod/Tazobactam (Sod 3.375 gm/ Sodium Chloride) 50 mls @ 12.5 mls/hr IV Q8H [facility]; Protocol Last Infusion: 04/24/20 04:53 Dose: Infused Documented by: Insulin Aspart (Novolog) 0 unit SUBCUT BEDTIME [facility]; Protocol Last Admin: 04/23/20 21:18 Dose: Not Given Documented by: Insulin Aspart (Novolog) 0 unit SUBCUT TIDWM [facility]; Protocol Last Admin: 04/23/20 16:49 Dose: Not Given Documented by: Isosorbide Mononitrate (Imdur) 60 mg PO QAM [facility] Last Admin: 04/24/20 06:55 Dose: Not Given Documented by: Metolazone (Zaroxolyn) 5 mg PO DAILY [facility] Last Admin: 04/23/20 09:38 Dose: 5 mg Documented by: Metoprolol Tartrate (Lopressor) 25 mg PO BID [facility] Last Admin: 04/23/20 17:21 Dose: Not Given Documented by: Morphine Sulfate (Morphine) 2 mg IVP Q4H PRN PRN Reason: SEVERE PAIN Last Admin: 04/24/20 00:53 Dose: 2 mg Documented by: Multi-Ingredient Ointment (Eucerin) 1 applic TOPICAL BID [facility] Last Admin: 04/23/20 17:32 Dose: 1 applic Documented by: Naloxone HCl (Narcan) 0.1 mg IVP Q2M PRN PRN Reason: OPIATERV Ondansetron HCl (Zofran) 4 mg IVP Q8H PRN PRN Reason: vomiting, or N/V if npo Pantoprazole Sodium (Protonix) 40 mg IVP DAILY [facility] Last Admin: 04/23/20 09:38 Dose: 40 mg Documented by: Potassium Chloride (Potassium Chloride Oral Liquid) 10 meq PO DAILY [facility] Last Admin: 04/23/20 09:39 Dose: 10 meq Documented by: Trazodone HCl (Desyrel) 50 mg PO BEDTIME [facility] Last Admin: 04/23/20 21:18 Dose: 50 mg Documented by: Vitals/I&O/Wt Last Vital Signs Temp 97.6 F 04/23/20 19:00 Pulse 57 L 04/24/20 07:00 Resp 14 04/24/20 06:40 BP 121/62 04/24/20 07:00 Pulse Ox 97 04/24/20 07:00 04/23/20 04/24/20 04/24/20 22:59 06:59 14:59 Intake Total 691.692 / 886.002 200.00 / 1086.002 100 / 100 Output Total 1050 / 1455 250 / 1705 500 / 500 Balance -358.308 / -568.998 -50.00 / -618.998 -400 / -400 Weight last 48 hrs Weight 202 lb Weight 202 lb Physical Exam Narrative: EXAM NARRATIVE: GENERAL: The patient is intubated and sedated. HEENT: No significant pallor, icterus or lymphadenopathy.Oral cavity: There are no mucous membrane lesions. NECK: Trachea appears to be central. No masses noted. No JVD or thyromegaly appreciated. RESPIRATORY: Chest is symmetrical. No intercostals muscle retraction or any accessory muscle activation. There is no chest wall tenderness. Breath sounds are heard bilaterally. No rales or rhonchi heard. No evidence of any conso lidation. Scattered crackles in the bases BREASTS: Deferred. [] HEART: The heart sounds are normal. No S3 or S4. Short systolic murmur at the base of the heart.. No pericardial rub ABDOMEN: No vessel pulsations or distention. No tenderness. No organomegaly appreciated. Bowel sounds are normally heard. [] : Deferred. [] RECTAL: Deferred. [] LYMPHATIC: No lymphadenopathy noted in the neck or groin. [] EXTREMITIES: No edema or cyanosis. No clubbing. Peripheral pulses are palpated in fairly good volume and amplitude MUSCULOSKELETAL: No acute joint deformities or swelling SKIN: There are no significant rashes or ecchymosis NEUROPSYCHIATRIC: Intubated and sedated. Moves all extremities. Urinary Catheter Management^: Whitley: Cath Placed During This Visit: yes Reason for Continuing Indwelling Catheter: Accurate Measurement of Urinary Output in Critically Ill Patients Urinary Catheter Date of Insertion: 04/22/20 Urinary Catheter Time of Insertion: 18:43 Data : 04/25/20 03:15 04/25/20 03:15 Micro: Microbiology 04/23/20 06:44 Blood Culture - Preliminary Blood NEGATIVE TO DATE 04/23/20 02:01 Blood Culture - Preliminary Blood NEGATIVE TO DATE 04/23/20 11:30 Gram Stain - Final Sputum - Endotracheal Tube Aspirate 04/23/20 03:45 Bacterial Antigens - Final Urine,Voided A&P Assessment and plan (1) Acute on chronic diastolic (congestive) heart failure: Clinically getting compensated. May continue careful IV diuresis. Status: Acute (2) Atrial fibrillation with rapid ventricular response: The patient is in a regular rhythm. Appears to be sinus. May continue on the current medications. Status: Resolved (3) Acute kidney injury superimposed on chronic kidney disease: The kidney function appears to be progressively getting worse. This could be multifactorial Status: Acute (4) Diabetes mellitus: Blood sugar seems to be fairly under control Status: Chronic Qualifiers: Diabetes mellitus complication status: with hyperglycemia Diabetes mellitus bed bug exterminator insulin use: without detention use Diabetes mellitus type: type 2 Qualified Code(s): E11.65 - Type 2 diabetes mellitus with hyperglycemia (5) Anemia: Patient had a GI bleed. Apparently he received blood transfusion. Management as primary. Status: Acute Qualifiers: Anemia type: iron deficiency Iron deficiency anemia type: chronic blood loss Qualified Code(s): D50.0 - Iron deficiency anemia secondary to blood loss (chronic) Additional A&P Information Based on the patient's clinical progress, further management decisions will be made. Attestations Medical Necessity Statement*: Patient requires continued hospital stay for close monitoring and further management Coding Level of Care Code Acute Project Production Engineer for [facility] Fw Diagnoses Acute on chronic diastolic (congestive) heart failure I50.33 Atrial fibrillation with rapid ventricular response I48.91 Acute kidney injury superimposed on chronic kidney disease N17.9; N18.9 Diabetes mellitus E11.65 Diabetes mellitus complication status: with hyperglycemia Diabetes mellitus detention insulin use: without detention use Diabetes mellitus type: type 2 Anemia D50.0 Anemia type: iron deficiency Iron deficiency anemia type: chronic blood loss
--- NOTE | 2020-04-24 09:43 | PM.PN ---
Subjective Subjective: Interval history: No new issues today. Lasix gtt worked well with robust UO. Vent settings remain stable. Hemodynamics remain stable Medications: Reviewed: Yes Medication Review Details: Current Medications Acetaminophen (Tylenol) 650 mg PO Q6H PRN PRN Reason: Mild/Mod Pain Or Temp >/= 101 Hydrocodone Bitart/Acetaminophen ([place] 5-325 Mg) 1 tab PO Q4H PRN PRN Reason: MODERATE TO SEVERE PAIN Amiodarone HCl (Cordarone) 200 mg PO DAILY [facility] Last Admin: 04/23/20 09:39 Dose: 200 mg Documented by: Amlodipine Besylate (Norvasc) 10 mg PO DAILY [facility] Last Admin: 04/23/20 09:39 Dose: 10 mg Documented by: Atorvastatin Calcium (Lipitor) 20 mg PO BEDTIME [facility] Last Admin: 04/23/20 21:18 Dose: 20 mg Documented by: Bisacodyl (Dulcolax) 10 mg PO DAILY PRN PRN Reason: CONSTIPATION Dextrose (D50w) 25 ml IVP ONCE PRN; Protocol PRN Reason: hypoglycemia protocol Dextrose (D50w) 50 ml IVP PRN PRN; Protocol PRN Reason: hypoglycemia protocol Ferrous Sulfate (Ferrous Sulfate) 325 mg PO DAILY [facility] Last Admin: 04/23/20 09:38 Dose: 325 mg Documented by: Gabapentin (Neurontin) 400 mg PO DAILY [facility] Last Admin: 04/23/20 09:38 Dose: 400 mg Documented by: Glucagon (Glucagen) 1 mg IM ONCE PRN; Protocol PRN Reason: Adult Acute Hypoglycemia Prot. Hydralazine HCl (Apresoline) 25 mg PO TID [facility] Last Admin: 04/23/20 21:18 Dose: 25 mg Documented by: Dextrose (D5w) 500 mls @ 100 mls/hr IV ONCE PRN; Protocol PRN Reason: Adult Acute Hypoglycemia Prot Propofol (Diprivan) 1,000 mg in 100 mls @ 0 mls/hr IV .Q0M [facility]; Protocol Last Admin: 04/24/20 07:47 Dose: 45 mcg/kg/min, 25.6 mls/hr Documented by: Fentanyl 1,000 mcg/ Sodium (Chloride) 100 mls @ 0 mls/hr IV .Q0M [facility]; Protocol Last Titration: 04/24/20 08:00 Dose: 25 mcg/hr, 2.5 mls/hr Documented by: Furosemide 100 mg/ Sodium (Chloride) 50 mls @ 0 mls/hr IV .Q0M [facility]; Protocol Last Admin: 04/24/20 07:48 Dose: 15 mg/hr, 7.5 mls/hr Documented by: Vancomycin HCl 1,000 mg/ (Sodium Chloride) 250 mls @ 250 mls/hr IV Q36H [facility]; Protocol Last Infusion: 04/23/20 03:35 Dose: Infused Documented by: Piperacillin Sod/Tazobactam (Sod 3.375 gm/ Sodium Chloride) 50 mls @ 12.5 mls/hr IV Q8H [facility]; Protocol Last Infusion: 04/24/20 04:53 Dose: Infused Documented by: Insulin Aspart (Novolog) 0 unit SUBCUT BEDTIME [facility]; Protocol Last Admin: 04/23/20 21:18 Dose: Not Given Documented by: Insulin Aspart (Novolog) 0 unit SUBCUT TIDWM [facility]; Protocol Last Admin: 04/23/20 16:49 Dose: Not Given Documented by: Isosorbide Mononitrate (Imdur) 60 mg PO QAM [facility] Last Admin: 04/24/20 06:55 Dose: Not Given Documented by: Metolazone (Zaroxolyn) 5 mg PO DAILY [facility] Last Admin: 04/23/20 09:38 Dose: 5 mg Documented by: Metoprolol Tartrate (Lopressor) 25 mg PO BID [facility] Last Admin: 04/23/20 17:21 Dose: Not Given Documented by: Morphine Sulfate (Morphine) 2 mg IVP Q4H PRN PRN Reason: SEVERE PAIN Last Admin: 04/24/20 00:53 Dose: 2 mg Documented by: Multi-Ingredient Ointment (Eucerin) 1 applic TOPICAL BID [facility] Last Admin: 04/23/20 17:32 Dose: 1 applic Documented by: Naloxone HCl (Narcan) 0.1 mg IVP Q2M PRN PRN Reason: OPIATERV Ondansetron HCl (Zofran) 4 mg IVP Q8H PRN PRN Reason: vomiting, or N/V if npo Pantoprazole Sodium (Protonix) 40 mg IVP DAILY [facility] Last Admin: 04/23/20 09:38 Dose: 40 mg Documented by: Potassium Chloride (Potassium Chloride Oral Liquid) 10 meq PO DAILY [facility] Last Admin: 04/23/20 09:39 Dose: 10 meq Documented by: Trazodone HCl (Desyrel) 50 mg PO BEDTIME [facility] Last Admin: 04/23/20 21:18 Dose: 50 mg Documented by: Vitals/I&O/Wt Last Vital Signs Temp 97.6 F 04/23/20 19:00 Pulse 57 L 04/24/20 07:00 Resp 14 04/24/20 06:40 BP 121/62 04/24/20 07:00 Pulse Ox 97 04/24/20 07:00 04/23/20 04/24/20 04/24/20 22:59 06:59 14:59 Intake Total 691.692 / 886.002 200.00 / 1086.002 100 / 100 Output Total 1050 / 1455 250 / 1705 500 / 500 Balance -358.308 / -568.998 -50.00 / -618.998 -400 / -400 Weight last 48 hrs Weight 91.626 kg Weight 91.626 kg Physical Exam Narrative: EXAM NARRATIVE: Constitutional: Sedated HEENT: Wet mucosa, no jvp, non icteric Lungs: Bilaterally clear coarse, diminished all lung zones CVS: S1 S2, no murmurs Abdo: Soft, BS ok Ext 4: global edema, peripheral perfusion with no cyanosis Neurological: Grossly non-focal Urinary Catheter Management^: Whitley: Cath Placed During This Visit: yes Reason for Continuing Indwelling Catheter: Accurate Measurement of Urinary Output in Critically Ill Patients Urinary Catheter Date of Insertion: 04/22/20 Urinary Catheter Time of Insertion: 18:43 Data : 04/24/20 04:34 04/24/20 04:34 Micro: Microbiology 04/23/20 02:01 Blood Culture - Preliminary Blood Gram positive cocci 04/23/20 06:44 Blood Culture - Preliminary Blood NEGATIVE TO DATE 04/23/20 11:30 Gram Stain - Final Sputum - Endotracheal Tube Aspirate 04/23/20 03:45 Bacterial Antigens - Final Urine,Voided A&P Additional A&P Information 1. JED on CKD Consistent with CRS Creatinine is drifting up but UO is robust No acute need for dialysis today; but trend in creatinine is worrisome Lasix GTT and Metolazone on board Will monitor throughout the day as he is stable in reagard to volume and has marginal urine outout On going discussion about goals of care regarding need for dialysis s Strict ins and outs, avoid usual nephrotoxic medication. 2. Lytes - minor non critical aberration - close monitoring while aggressively diuresing 3. Hypertension. Currently on combination antihypertensives and he is currently rate controlled with amiodarone. 4. Anemia - serial H/H, iron/TIBC pending with view to giving EPO/iv iron On going discussion with family regarding plans of care includig dialysis Thank you for consultation, as always is a pleasure to follow these patients with you Antonino Harden MD Nephrology [phone] Patient seen and examined via telemedicine, with the assistance of the bedside RN Attestations Medical Necessity Statement*: jayeal for JED Coding Level of Care Code Acute Facility Attendant for [facility]
--- NOTE | 2020-04-24 10:18 | PC.CHAP ---
Pastoral Care Encounter/Spiritual Assessment Type of Contact [] Declined automobile rental agent visit [] Patient/Family/Request visit [] Outpatient visit [] Follow-up visit [] Physician referral [] Code/Alert [] Routine visit [] Staff referral [] Actively dying [] Patient sleeping [] Family support [] [] Out of room [] Palliative care [] [] Receiving care in room [] Pre-surgical visit [] Trauma [] Long length of stay [] ICU visit [x] Other: ventilator Relational/Emotional Strength [] Patient feels connected with others/family/visitors/staff [] Distress [] Loneliness/isolation [] Abandonment Spirituality of Patient [] Person of Layla [] Attends Tenriism of their Layla [] Believes in Prayer [] Reads Bible or Shinto materials [] There are Spiritual issues to be addressed Geology Faculty Member Interventions [x] Prayer [] Active listening [] Non-anxious presence [] Spiritual/emotional support [] Crisis/trauma care [] Spiritual counseling [] Bereavement support [] Provided bereavement packet [] Provided Bible/devotional materials [] Provided toy/stuffed animal, coloring book to patient or family member [] Provided Communion [] Anointing/Dewey [] Salvation [x] Completed spiritual assessment [] Other: Impact on Illness or Injury [] Angry [] Fearful [] Anxious [] Often cries [] Exhaustion [] Unable to work [] Unable to attend adventist [] Unable to walk/stand [] Unable to read [] Unable to drive [] Unable to eat/drink [] Unable to sleep [] Unable to be with family [] Patient intubated [] Other: Summary Time spent with patient
[2020-04-24] MEDS: pantoprazole 40 mg SDV IVP (11:44)
[2020-04-24] MEDS: potassium chloride oral liq 20 mEq/15 mL UDC 10 MEQ PO (11:45)
[2020-04-24] MEDS: ferrous sulfate EC 325 mg Tablet PO ×2 (11:46→17:14)
[2020-04-24] MEDS: metOLazone 5 MG Tablet PO (11:46)
[2020-04-24] MEDS: amiodarone 200 mg Tablet PO (11:47)
[2020-04-24] MEDS: gabapentin 400 mg Capsule PO (11:47)
[2020-04-24] MEDS: eucerin cream 113 gm Jar 1 APPLIC TOPICAL ×2 (11:48→17:19)
[2020-04-24] MEDS: hyDRALAzine 25 mg Tablet PO ×3 (11:48→21:36)
[2020-04-24 11:50] LABS: Percent Saturation 11.3 % (20-50); Total Iron Binding Capacity 237 mcg/dl; Unsaturated Iron Binding 210 ug/dL (112-347)
[2020-04-24 11:56] LABS: Glucose Point of Care 86 mg/dL (70-110)
[2020-04-24 11:56] LABS: Glucose Point of Care 70 mg/dL (70-110)
--- NOTE | 2020-04-24 14:05 | PM.PN ---
Subjective Subjective: Interval history: Patient seen and evaluated earlier this morning. Resting comfortably at time of exam, discussed with RN at bedside and with respiratory therapy. Plan for SBT today. Discussed with son today via phone conference. He reported that he is still thinking about the dialysis option. He would like to discuss with his father if able after extubation, I discussed with him that we may not be able to do that. Vitals/I&O/Wt Last Vital Signs Temp 97.4 F L 04/24/20 08:00 Pulse 57 L 04/24/20 08:00 Resp 16 04/24/20 13:28 BP 111/58 04/24/20 08:00 Pulse Ox 97 04/24/20 08:00 04/23/20 04/24/20 04/24/20 22:59 06:59 14:59 Intake Total 691.692 / 886.002 200.00 / 1086.002 205 / 205 Output Total 1050 / 1455 250 / 1705 500 / 500 Balance -358.308 / -568.998 -50.00 / -618.998 -295 / -295 Weight last 48 hrs Weight 91.626 kg Weight 91.626 kg Physical Exam Const: GENERAL APPEARANCE: patient mechanically ventilated HENMT: COMMON NORMALS: normocephalic and atraumatic HEAD & SCALP: normocephalic and atraumatic Eye: COMMON NORMALS: Equal, round and reactive pupils present PUPIL: Yes Equal, round and reactive pupils present Neck/C-Spine: COMMON NORMALS: supple GENERAL: Yes normal visual inspection Resp: AUSCULTATION: crackles, no rhonchi and wheezes OTHER: ET tube in place, diminished breath sounds bilaterally, crackles improved bilaterally Cardio: COMMON NORMALS: regular rhythm RATE: bradycardic RHYTHM: regular rhythm GI: COMMON NORMALS: Soft to palpation and non-tender INSPECTION: No abdominal distension AUSCULTATION: Yes normoactive bowel sounds PALPATION: Yes Soft to palpation Extremity: COMMON NORMALS: no calf tenderness OTHER: 1+ pitting edema in the lower extremities bilaterally Neuro: COMMON NORMALS: CN's II-XII intact bilaterally, moves all extremities and no focal motor deficits SPEECH: speech normal OTHER: intubated and sedated Psych: COMMON NORMALS: mental status grossly normal and cooperative Skin: OTHER: Dry skin on the lower extremities bilaterally Urinary Catheter Management^: Jaquez: Cath Placed During This Visit: yes Reason for Continuing Indwelling Catheter: Accurate Measurement of Urinary Output in Critically Ill Patients Urinary Catheter Date of Insertion: 04/22/20 Urinary Catheter Time of Insertion: 18:43 Data : 04/24/20 04:34 04/24/20 04:34 Micro: Microbiology 04/23/20 11:30 Gram Stain - Final Sputum - Endotracheal Tube Aspirate Sputum Culture - Preliminary 04/23/20 02:01 Blood Culture - Preliminary Blood Gram positive cocci 04/23/20 06:44 Blood Culture - Preliminary Blood NEGATIVE TO DATE A&P Assessment and plan (1) Acute on chronic diastolic (congestive) heart failure: Remains intubated, SBT today ICU admission Cardiology consult appreciated Remains on Lasix drip, continuing to monitor renal function closely and consideration of dialysis. Discussed with patient's son again today and he still remains uncertain about dialysis, he stated that hospice referral was sent by PCP but he is not sure which way his father would want to be treated Status: Acute (2) Chronic anemia: Acute on chronic anemia also with iron deficiency, hemoglobin improved today Status post transfusion 2 units packed red blood cells FOBT positive, but no large amount of bleeding Consider inpatient EGD once cardiac/respiratory status improved Status: Acute (3) Chronic kidney disease: Chronic kidney disease with a baseline creatinine around 2, creatinine at 3.4, BUN of 54 Appreciate nephrology consultation Creatinine continuing to trend up, however urine output is been doing good. We will continue monitoring closely due to potential requirement of dialysis. Status: Chronic (4) Ventricular tachycardia: Prior history of ventricular tachycardia, continue on amiodarone 200 mg daily, metoprolol decreased to 25mg BID but will hold if HR less than 60 Status: Resolved (5) High risk medication use: Status: Acute (6) Edema, peripheral: Severe peripheral lower extremity edema, ANN hose ordered, plan for diuresis as above Status: Acute (7) Dyslipidemia: Continue home statin Status: Acute (8) Hypertension: Soft BP today Hold amlodipine metoprolol on hold due to bradycardia Status: Acute Qualifiers: Hypertension type: essential hypertension Qualified Code(s): I10 - Essential (primary) hypertension (9) Dementia: Status: Chronic Qualifiers: Dementia behavioral disturbance: without behavioral disturbance Dementia type: Lewy body dementia Qualified Code(s): G31.83 - Dementia with Lewy bodies; F02.80 - Dementia in other diseases classified elsewhere without behavioral disturbance (10) Diabetes mellitus: Lantus discontinued Glipizide on hold Status: Chronic Qualifiers: Diabetes mellitus complication status: with hyperglycemia Diabetes mellitus skilled nursing insulin use: without emt intermediate use Diabetes mellitus type: type 2 Qualified Code(s): E11.65 - Type 2 diabetes mellitus with hyperglycemia (11) Atrial fibrillation: Currently in sinus rhythm, continue amiodarone, metoprolol decreased but hold if HR<60, not on anticoagulation due to concern for anemia Status: Acute Additional A&P Information Acute respiratory failure: intubated on 04/22/20, RTAT, SBT daily, diuresis and empiric antibiotic coverage. sedation with propofol, wean off fentanyl due to hypotension Difficult jaquez placement: Jaquez placed by Dr. Del Real, appreciate consultation. Patient had pulled on Jaquez prior to intubation, now with hematuria due to trauma. Continue close monitoring. Question of underlying pneumonia: started on empiric antibiotics due to respiratory failure, will continue at this time, sputum culture pending DVT prophylaxis: SCDs, no pharmacologic prophylaxis due to anemia Diet: NPO GI ppx: PPI CODE STATUS: Full code Attestations Medical Necessity Statement*: There is further hospitalization due to acute respiratory failure secondary to acute on chronic CHF exacerbation. Coding Level of Care Code Acute Lab Animal Technologist for [facility] Fwd Exam Comprehensive Diagnoses Acute on chronic diastolic (congestive) heart failure I50.33 Chronic anemia D64.9 Chronic kidney disease N18.9 Ventricular tachycardia I47.2 High risk medication use Z79.899 Edema, peripheral R60.9 Dyslipidemia E78.5 Hypertension I10 Hypertension type: essential hypertension Dementia G31.83; F02.80 Dementia behavioral disturbance: without behavioral disturbance Dementia type: Lewy body dementia Diabetes mellitus E11.65 Diabetes mellitus complication status: with hyperglycemia Diabetes mellitus skilled nursing insulin use: without skilled nursing use Diabetes mellitus type: type 2 Atrial fibrillation I48.91
--- NOTE | 2020-04-24 14:12 | PC.SOCIAL ---
IMM Attempted x2 to update patient's son of the IMM by phone as patient is currently intubated. Unable to reach son at this time. Initialed, dated, and timed and placed in chart. Copy provided to patient's bedside.
[2020-04-24] MEDS: vancomycin 1,000 MG in sodium chloride 0.9% 250 ML 250 MG IV (14:45)
[2020-04-24 16:55] LABS: Glucose Point of Care 84 mg/dL (70-110)
--- NOTE | 2020-04-24 17:48 | PC.OT ---
OT Note: Unable to see patient due to him being intubated, will attempt again when able.
[2020-04-24 21:33] LABS: Glucose Point of Care 80 mg/dL (70-110)
[2020-04-24] MEDS: atorvastatin 40 mg Tablet 20 MG PO (21:36)
[2020-04-24] MEDS: trazodone 50 mg Tablet PO (21:36)
[2020-04-25] VITALS (44 sets, daily range): BP systolic 101–140; BP diastolic 50–77; PULSE 59–120; RESP 14–32; TEMP 36.5–37.4; O2SAT 91–100
[2020-04-25] MEDS: piperacillin-tazobactam 3.375 GM in sodium chloride 0.9% (plus) 50 ML IV ×3 (01:14→23:14)
[2020-04-25 03:33] LABS: Basophils # 0.1 10^3/uL (0.0-0.1); Basophils % 0.8 %; Eosinophils # 0.4 10^3/uL (0.0-0.8); Hematocrit 32.5 % (42.0-52.0); Hemoglobin 9.5 g/dL (11.7-16.6); Lymphocytes # 1.1 10^3/uL (0.8-4.8); Lymphocytes % 11.5 %; Mean Corpuscular HGB Conc 29.2 g/dL (30.0-36.0); Mean Corpuscular Hemoglobin 25.6 pg (28.0-34.0); Mean Corpuscular Volume 87.6 fL (80-94); Mean Platelet Volume 9.7 fL (7.4-10.4); Monocytes # 1.1 10^3/uL (0.2-0.9); Monocytes % 12.3 %; Neutrophils # 6.55 10^3/uL (1.8-7.7); Neutrophils % 70.6 %; Nucleated Red Blood Cells % 0 %; Platelet Count 317 10^3/cmm (130-400); Red Blood Count 3.71 10^6/uL (4.1-5.3); Red Cell Distribution Width 16.2 % (12.1-15.1); White Blood Count 9.3 10^3/uL (4.0-10.0)
[2020-04-25] MEDS: propofol 1,000 MG/100 ML INJ 25.6 MG IV (03:46)
[2020-04-25] MEDS: FUROsemide 100 MG in sodium chloride 0.9% 40 ML 7.5 MG IV ×3 (03:51→19:22)
[2020-04-25 04:03] LABS: Lactic Sepsis W/Reflex 0.8 mmol/L (0.5-2.2)
[2020-04-25 04:04] LABS: Anion Gap 27.7 (5-19); Blood Urea Nitrogen 59 mg/dL (8-23); Calcium 8.8 mg/dL (8.5-10.5); Carbon Dioxide 19 mmol/L (22-29); Chloride 102 mmol/L (98-107); Glucose 80 mg/dL (65-115); Osmolality Calculated 316 mOsm/kg (285-295); Potassium 3.7 mmol/L (3.5-5.1); Sodium 145 mmol/L (136-145)
[2020-04-25 04:08] LABS: Magnesium 2.3 mg/dL (1.7-2.3); Phosphorus 7.4 mg/dL (2.5-4.5)
[2020-04-25 04:52] LABS: ABG PCO2 37.3 mmHg (35-45); ABG PH Result 7.37 (7.35-7.45); Arterial Blood Gas Hematocrit 29.9 % (42-52); Base Excess ABG -3.2 mmol/L (-2.0-2.0); Blood Gas Sample Site Brachial, right; Blood Gas Sample Type Arterial; HCO3 ABG 21.7 mmol/L (22-26); Oxygen Device VENT; PO2 ABG 81.3 mmHg (80.0-100.0)
--- NOTE | 2020-04-25 06:10 | PC.NURSE ---
Wasted 70 mL of Fentanyl with Evangelina Joseph RN.
[2020-04-25 06:11] LABS: Creatine Phosphokinase 344 U/L (39-308)
[2020-04-25] MEDS: propofol 1,000 MG/100 ML INJ 22.8 MG IV (07:57)
[2020-04-25 08:19] LABS: Glucose Point of Care 95 mg/dL (70-110)
[2020-04-25] MEDS: ferrous sulfate EC 325 mg Tablet PO (08:45)
[2020-04-25] MEDS: gabapentin 400 mg Capsule PO (08:46)
[2020-04-25] MEDS: amiodarone 200 mg Tablet PO (08:46)
[2020-04-25] MEDS: hyDRALAzine 25 mg Tablet PO ×2 (08:46→14:52)
[2020-04-25] MEDS: metOLazone 5 MG Tablet PO (08:46)
--- NOTE | 2020-04-25 08:53 | PC.CHAP ---
Pastoral Care Encounter/Spiritual Assessment Type of Contact [] Declined photoengraving sketch maker visit [] Patient/Family/Request visit [] Outpatient visit [] Follow-up visit [] Physician referral [] Code/Alert [] Routine visit [] Staff referral [] Actively dying [] Patient sleeping [] Family support [] [] Out of room [] Palliative care [] [] Receiving care in room [] Pre-surgical visit [] Trauma [] Long length of stay [] ICU visit [x] Other: ventilator Relational/Emotional Strength [] Patient feels connected with others/family/visitors/staff [] Distress [] Loneliness/isolation [] Abandonment Spirituality of Patient [] Person of Layla [] Attends Congregation of their Layla [] Believes in Prayer [] Reads Bible or Religion materials [] There are Spiritual issues to be addressed [employer]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 Interventions [x] Prayer [] Active listening [] Non-anxious presence [] Spiritual/emotional support [] Crisis/trauma care [] Spiritual counseling [] Bereavement support [] Provided bereavement packet [] Provided Bible/devotional materials [] Provided toy/stuffed animal, coloring book to patient or family member [] Provided Communion [] Anointing/Home [] Salvation [x] Completed spiritual assessment [] Other: Impact on Illness or Injury [] Angry [] Fearful [] Anxious [] Often cries [] Exhaustion [] Unable to work [] Unable to attend hindu [] Unable to walk/stand [] Unable to read [] Unable to drive [] Unable to eat/drink [] Unable to sleep [] Unable to be with family [] Patient intubated [] Other: Summary Time spent with patient
[2020-04-25] MEDS: potassium chloride oral liq 20 mEq/15 mL UDC 10 MEQ PO (08:55)
[2020-04-25] MEDS: pantoprazole 40 mg SDV IVP (08:56)
[2020-04-25] MEDS: eucerin cream 113 gm Jar 1 APPLIC TOPICAL ×2 (09:02→19:11)
--- NOTE | 2020-04-25 09:21 | P.PN_ITS ---
Subjective Subjective: Interval history: No new issues. Failed SBTs yesterday but doing well on PS today. Good urine in response to diuretic combination Minimal edema and improved Creatinine noted to be increasing Medications: Reviewed: Yes Medication Review Details: Current Medications Acetaminophen (Tylenol) 650 mg PO Q6H PRN PRN Reason: Mild/Mod Pain Or Temp >/= 101 Hydrocodone Bitart/Acetaminophen ([place] 5-325 Mg) 1 tab PO Q4H PRN PRN Reason: MODERATE TO SEVERE PAIN Amiodarone HCl (Cordarone) 200 mg PO DAILY [facility] Last Admin: 04/23/20 09:39 Dose: 200 mg Documented by: Amlodipine Besylate (Norvasc) 10 mg PO DAILY [facility] Last Admin: 04/23/20 09:39 Dose: 10 mg Documented by: Atorvastatin Calcium (Lipitor) 20 mg PO BEDTIME [facility] Last Admin: 04/23/20 21:18 Dose: 20 mg Documented by: Bisacodyl (Dulcolax) 10 mg PO DAILY PRN PRN Reason: CONSTIPATION Dextrose (D50w) 25 ml IVP ONCE PRN; Protocol PRN Reason: hypoglycemia protocol Dextrose (D50w) 50 ml IVP PRN PRN; Protocol PRN Reason: hypoglycemia protocol Ferrous Sulfate (Ferrous Sulfate) 325 mg PO DAILY [facility] Last Admin: 04/23/20 09:38 Dose: 325 mg Documented by: Gabapentin (Neurontin) 400 mg PO DAILY [facility] Last Admin: 04/23/20 09:38 Dose: 400 mg Documented by: Glucagon (Glucagen) 1 mg IM ONCE PRN; Protocol PRN Reason: Adult Acute Hypoglycemia Prot. Hydralazine HCl (Apresoline) 25 mg PO TID [facility] Last Admin: 04/23/20 21:18 Dose: 25 mg Documented by: Dextrose (D5w) 500 mls @ 100 mls/hr IV ONCE PRN; Protocol PRN Reason: Adult Acute Hypoglycemia Prot Propofol (Diprivan) 1,000 mg in 100 mls @ 0 mls/hr IV .Q0M [facility]; Protocol Last Admin: 04/24/20 07:47 Dose: 45 mcg/kg/min, 25.6 mls/hr Documented by: Fentanyl 1,000 mcg/ Sodium (Chloride) 100 mls @ 0 mls/hr IV .Q0M [facility]; Protocol Last Titration: 04/24/20 08:00 Dose: 25 mcg/hr, 2.5 mls/hr Documented by: Furosemide 100 mg/ Sodium (Chloride) 50 mls @ 0 mls/hr IV .Q0M [facility]; Protocol Last Admin: 04/24/20 07:48 Dose: 15 mg/hr, 7.5 mls/hr Documented by: Vancomycin HCl 1,000 mg/ (Sodium Chloride) 250 mls @ 250 mls/hr IV Q36H [facility]; Protocol Last Infusion: 04/23/20 03:35 Dose: Infused Documented by: Piperacillin Sod/Tazobactam (Sod 3.375 gm/ Sodium Chloride) 50 mls @ 12.5 mls/hr IV Q8H [facility]; Protocol Last Infusion: 04/24/20 04:53 Dose: Infused Documented by: Insulin Aspart (Novolog) 0 unit SUBCUT BEDTIME [facility]; Protocol Last Admin: 04/23/20 21:18 Dose: Not Given Documented by: Insulin Aspart (Novolog) 0 unit SUBCUT TIDWM [facility]; Protocol Last Admin: 04/23/20 16:49 Dose: Not Given Documented by: Isosorbide Mononitrate (Imdur) 60 mg PO QAM [facility] Last Admin: 04/24/20 06:55 Dose: Not Given Documented by: Metolazone (Zaroxolyn) 5 mg PO DAILY [facility] Last Admin: 04/23/20 09:38 Dose: 5 mg Documented by: Metoprolol Tartrate (Lopressor) 25 mg PO BID [facility] Last Admin: 04/23/20 17:21 Dose: Not Given Documented by: Morphine Sulfate (Morphine) 2 mg IVP Q4H PRN PRN Reason: SEVERE PAIN Last Admin: 04/24/20 00:53 Dose: 2 mg Documented by: Multi-Ingredient Ointment (Eucerin) 1 applic TOPICAL BID [facility] Last Admin: 04/23/20 17:32 Dose: 1 applic Documented by: Naloxone HCl (Narcan) 0.1 mg IVP Q2M PRN PRN Reason: OPIATERV Ondansetron HCl (Zofran) 4 mg IVP Q8H PRN PRN Reason: vomiting, or N/V if npo Pantoprazole Sodium (Protonix) 40 mg IVP DAILY [facility] Last Admin: 04/23/20 09:38 Dose: 40 mg Documented by: Potassium Chloride (Potassium Chloride Oral Liquid) 10 meq PO DAILY [facility] Last Admin: 04/23/20 09:39 Dose: 10 meq Documented by: Trazodone HCl (Desyrel) 50 mg PO BEDTIME [facility] Last Admin: 04/23/20 21:18 Dose: 50 mg Documented by: Vitals/I&O/Wt Last Vital Signs Temp 97.6 F 04/24/20 19:30 Pulse 60 04/25/20 08:00 Resp 19 H 04/25/20 08:00 BP 131/62 04/25/20 08:00 Pulse Ox 100 04/25/20 08:00 04/24/20 04/25/20 04/25/20 22:59 06:59 14:59 Intake Total 591.625 / 846.625 149.75 / 996.375 100 / 100 Output Total 1450 / 1950 650 / 2600 350 / 350 Balance -858.375 / -1103.375 -500.25 / -1603.625 -250 / -250 Weight last 48 hrs Weight 88.677 kg Weight 91.626 kg Physical Exam Narrative: EXAM NARRATIVE: Constitutional: Sedated HEENT: Wet mucosa, no jvp, non icteric Lungs: Bilaterally clear coarse, diminished all lung zones CVS: S1 S2, no murmurs Abdo: Soft, BS ok Ext 4: global edema, peripheral perfusion with no cyanosis Neurological: Grossly non-focal Urinary Catheter Management^: Whitley: Cath Placed During This Visit: yes Reason for Continuing Indwelling Catheter: Accurate Measurement of Urinary Output in Critically Ill Patients Urinary Catheter Date of Insertion: 04/22/20 Urinary Catheter Time of Insertion: 18:43 Data : 04/25/20 03:15 04/25/20 03:15 Micro: Microbiology 04/23/20 11:30 Gram Stain - Final Sputum - Endotracheal Tube Aspirate Sputum Culture - Preliminary 04/23/20 02:01 Blood Culture - Preliminary Blood Gram positive cocci 04/23/20 06:44 Blood Culture - Preliminary Blood NEGATIVE TO DATE A&P Additional A&P Information 1. JED on CKD Consistent with CRS but also element of IVVD as creatinine is drifting up but UO is robust No acute need for dialysis today; but trend in creatinine is worrisome Lasix GTT and Metolazone on board No hard indication for dialysis but it is likely to be needed soon as he clearly needs diuretics On going discussion about goals of care regarding need for dialysis Strict ins and outs, avoid usual nephrotoxic medication. 2. Lytes - minor non critical aberration - close monitoring while aggressively diuresing - no need to load with sodium bicarb 3. Hypertension. Currently on combination antihypertensives and he is currently rate controlled with amiodarone. 4. Anemia - serial H/H, low iron sat, will load with venofer On going discussion with family regarding plans of care including dialysis; plans to extubate and discuss options with him if we can Thank you for consultation, as always is a pleasure to follow these patients with you Antonino Harden MD Nephrology [phone] Patient seen and examined via telemedicine, with the assistance of the bedside RN Attestations Medical Necessity Statement*: cathie for JED Coding Level of Care Code Acute Public Service Director for Maylin Morales
[2020-04-25] MEDS: iron sucrose 200 MG in sodium chloride 0.9% (100 ml) 100 ML 220 MG IV (10:17)
--- NOTE | 2020-04-25 10:45 | PC.NURSE ---
Started sedation vacation. Reduced propofil from 40-20 while PT was working with the patient. Further reduced to 0. Patient has tolerated well. Dr rodriguez notified of no sedation, will attempt extubation later today
--- NOTE | 2020-04-25 10:46 | PC.NURSE ---
Imdur held per Dr Arnold. Blood pressure is 100 systolic and has been consistent.
--- NOTE | 2020-04-25 11:28 | PC.NURSE ---
Pt son, Jignesh called for an update. Let him know about possible extubation today.
--- NOTE | 2020-04-25 12:03 | P.PN_ITS ---
Subjective Subjective: Interval history: Patient intubated, sedation weaned and patient will slowly open his eyes and responds to voice. Vitals/I&O/Wt Last Vital Signs Temp 97.7 F 04/25/20 10:00 Pulse 97 04/25/20 10:00 Resp 21 H 04/25/20 11:37 BP 101/71 04/25/20 10:00 Pulse Ox 97 04/25/20 10:00 04/24/20 04/25/20 04/25/20 22:59 06:59 14:59 Intake Total 591.625 / 846.625 199.75 / 1046.375 150.54 / 150.54 Output Total 1450 / 1950 650 / 2600 350 / 350 Balance -858.375 / -1103.375 -450.25 / -1553.625 -199.46 / -199.46 Weight last 48 hrs Weight 88.677 kg Weight 91.626 kg Physical Exam Const: GENERAL APPEARANCE: patient mechanically ventilated ORIENTATION/CONSCIOUSNESS: Yes awake HENMT: COMMON NORMALS: normocephalic and atraumatic HEAD & SCALP: normocephalic and atraumatic Eye: COMMON NORMALS: Equal, round and reactive pupils present PUPIL: Yes Equal, round and reactive pupils present Neck/C-Spine: COMMON NORMALS: supple GENERAL: Yes normal visual inspection Resp: EFFORT & INSPECTION: Yes tachypneic, Yes labored and Yes uses accessory muscles AUSCULTATION: crackles, no rhonchi and wheezes OTHER: ET tube in place, diminished breath sounds bilaterally, crackles improved bilaterally Cardio: COMMON NORMALS: regular rhythm RATE: bradycardic RHYTHM: regular rhythm GI: COMMON NORMALS: Soft to palpation and non-tender INSPECTION: No abdominal distension AUSCULTATION: Yes normoactive bowel sounds PALPATION: Yes Soft to palpation Extremity: COMMON NORMALS: no calf tenderness OTHER: 1+ pitting edema in the lower extremities bilaterally Neuro: COMMON NORMALS: CN's II-XII intact bilaterally, moves all extremities and no focal motor deficits SPEECH: speech normal OTHER: intubated and sedated Psych: COMMON NORMALS: mental status grossly normal and cooperative Skin: OTHER: Dry skin on the lower extremities bilaterally Urinary Catheter Management^: Jaquez: Cath Placed During This Visit: yes Reason for Continuing Indwelling Catheter: Accurate Measurement of Urinary Output in Critically Ill Patients Urinary Catheter Date of Insertion: 04/22/20 Urinary Catheter Time of Insertion: 18:43 Data : 04/25/20 03:15 04/25/20 03:15 Micro: Microbiology 04/23/20 11:30 Gram Stain - Final Sputum - Endotracheal Tube Aspirate Sputum Culture - Preliminary 04/23/20 02:01 Blood Culture - Preliminary Blood Gram positive cocci A&P Assessment and plan (1) Acute on chronic diastolic (congestive) heart failure: Remains intubated, SBT today Cardiology consult appreciated Remains on Lasix drip, continuing to monitor renal function closely and consideration of dialysis. Plan for extubation today Status: Acute (2) Chronic anemia: Acute on chronic anemia also with iron deficiency, hemoglobin improved today 9.5 Status post transfusion 2 units packed red blood cells during this admission FOBT positive, but no large amount of bleeding Consider inpatient EGD once cardiac/respiratory status improved Status: Acute (3) Chronic kidney disease: Chronic kidney disease increasing BUN and creatinine Appreciate nephrology consultation Creatinine continuing to trend up, however urine output is been doing good. We will continue monitoring closely due to potential requirement of dialysis. Status: Chronic (4) Ventricular tachycardia: Prior history of ventricular tachycardia, continue on amiodarone 200 mg daily, restart metoprolol 25 mg twice daily today Status: Resolved (5) High risk medication use: Status: Acute (6) Edema, peripheral: Severe peripheral lower extremity edema, improved Status: Acute (7) Dyslipidemia: Continue home statin Status: Acute (8) Hypertension: Hypotensive over the past couple of days, however blood pressure continues to improve at this time. Will restart home metoprolol Status: Acute Qualifiers: Hypertension type: essential hypertension Qualified Code(s): I10 - Essential (primary) hypertension (9) Dementia: Status: Chronic Qualifiers: Dementia behavioral disturbance: without behavioral disturbance D ementia type: Lewy body dementia Qualified Code(s): G31.83 - Dementia with Lewy bodies; F02.80 - Dementia in other diseases classified elsewhere without behavioral disturbance (10) Diabetes mellitus: Lantus discontinued Glipizide on hold Status: Chronic Qualifiers: Diabetes mellitus complication status: with hyperglycemia Diabetes mellitus manager long term care insulin use: without manager long term care use Diabetes mellitus type: type 2 Qualified Code(s): E11.65 - Type 2 diabetes mellitus with hyperglycemia (11) Atrial fibrillation: Currently in sinus rhythm, continue amiodarone, metoprolol decreased but hold if HR<60, not on anticoagulation due to concern for anemia Status: Acute Additional A&P Information Acute respiratory failure: intubated on 04/22/20, RTAT, SBT with likely extubation today. Repeat ABG. Wean off of fentanyl and propofol Difficult jaquez placement: Jaquez placed by Dr. Del Real, appreciate consultation. Question of underlying pneumonia: started on empiric antibiotics due to respiratory failure, preliminary sputum culture showing mixed upper respiratory ray, will continue to monitor closely DVT prophylaxis: SCDs, no pharmacologic prophylaxis due to anemia Diet: NPO GI ppx: PPI CODE STATUS: Full code Attestations Medical Necessity Statement*: Patient requires hospitalization due to acute on chronic CHF exacerbation as well as acute respiratory failure. Coding Level of Care Code Acute Site Foreman for Chg Fwd Exam Comprehensive Diagnoses Acute on chronic diastolic (congestive) heart failure I50.33 Chronic anemia D64.9 Chronic kidney disease N18.9 Ventricular tachycardia I47.2 High risk medication use Z79.899 Edema, peripheral R60.9 Dyslipidemia E78.5 Hypertension I10 Hypertension type: essential hypertension Dementia G31.83; F02.80 Dementia behavioral disturbance: without behavioral disturbance Dementia type: Lewy body dementia Diabetes mellitus E11.65 Diabetes mellitus complication status: with hyperglycemia Diabetes mellitus prison insulin use: without prison use Diabetes mellitus type: type 2 Atrial fibrillation I48.91
[2020-04-25 12:10] LABS: Glucose Point of Care 108 mg/dL (70-110)
--- NOTE | 2020-04-25 12:30 | PC.NURSE ---
Currently doing sedation vacation with intention to extubate. Patient has been off of all sedation for 2 hours now. Pt is not following commands and is unresponsive. While attempting pupil assessment, patient clenches eyes to prevent assessment.
[2020-04-25 15:00] LABS: ABG PCO2 35.3 mmHg (35-45); ABG PH Result 7.33 (7.35-7.45); Arterial Blood Gas Hematocrit 31.2 % (42-52); Base Excess ABG -6.7 mmol/L (-2.0-2.0); Blood Gas Allen Test Pos; Blood Gas Sample Type Arterial; HCO3 ABG 18.6 mmol/L (22-26); PO2 ABG 67.8 mmHg (80.0-100.0)
[2020-04-25 15:02] LABS: Blood Gas Sample Site Radial, right; Oxygen Device VENT
--- NOTE | 2020-04-25 15:49 | PC.NURSE ---
Respiratory therapy extubated patient ith nurse at bedside. Initially patient's sats wern't improving past mid 80s and patient was unable to effetively cought. Easy pap treatment given for 10 minutes and patient's saturation was then in the low 90's post treatment. RT then performed easy pap treatment with duoneb.
[2020-04-25] MEDS: ipratropium-albuterol 3 mL Neb INHALATION ×2 (15:58→19:58)
--- NOTE | 2020-04-25 16:13 | PC.RESP ---
Patient extubated per MD orders to oxymask .
--- NOTE | 2020-04-25 16:47 | PC.NURSE ---
Pt breathing 33 times per min. slightly sleepy still. opens eyes when spoken to.
[2020-04-25 17:19] LABS: Glucose Point of Care 165 mg/dL (70-110)
--- NOTE | 2020-04-25 18:03 | P.PN_ITS ---
Subjective Subjective: Interval history: Patient is still intubated and sedated. Even when the sedation was withdrawn, he seems to be not responding properly. Medications: Reviewed: Yes Medication Review Details: Current Medications Acetaminophen (Tylenol) 650 mg PO Q6H PRN PRN Reason: Mild/Mod Pain Or Temp >/= 101 Hydrocodone Bitart/Acetaminophen ([place] 5-325 Mg) 1 tab PO Q4H PRN PRN Reason: MODERATE TO SEVERE PAIN Albuterol/Ipratropium (Duoneb) 3 ml INHALATION Q4H.RESPIRATORY [facility] Last Admin: 04/25/20 15:58 Dose: 3 ml Documented by: Amiodarone HCl (Cordarone) 200 mg PO DAILY [facility] Last Admin: 04/25/20 08:46 Dose: 200 mg Documented by: Amlodipine Besylate (Norvasc) 10 mg PO DAILY [facility] Last Admin: 04/23/20 09:39 Dose: 10 mg Documented by: Atorvastatin Calcium (Lipitor) 20 mg PO BEDTIME [facility] Last Admin: 04/24/20 21:36 Dose: 20 mg Documented by: Bisacodyl (Dulcolax) 10 mg PO DAILY PRN PRN Reason: CONSTIPATION Dextrose (D50w) 25 ml IVP ONCE PRN; Protocol PRN Reason: hypoglycemia protocol Dextrose (D50w) 50 ml IVP PRN PRN; Protocol PRN Reason: hypoglycemia protocol Ferrous Sulfate (Ferrous Sulfate) 325 mg PO BIDWM [facility] Last Admin: 04/25/20 08:45 Dose: 325 mg Documented by: Gabapentin (Neurontin) 400 mg PO DAILY [facility] Last Admin: 04/25/20 08:46 Dose: 400 mg Documented by: Glucagon (Glucagen) 1 mg IM ONCE PRN; Protocol PRN Reason: Adult Acute Hypoglycemia Prot. Hydralazine HCl (Apresoline) 25 mg PO TID [facility] Last Admin: 04/25/20 14:52 Dose: 25 mg Documented by: Dextrose (D5w) 500 mls @ 100 mls/hr IV ONCE PRN; Protocol PRN Reason: Adult Acute Hypoglycemia Prot Propofol (Diprivan) 1,000 mg in 100 mls @ 0 mls/hr IV .Q0M [facility]; Protocol Last Titration: 04/25/20 10:30 Dose: 0 mcg/kg/min, 0 mls/hr Documented by: Furosemide 100 mg/ Sodium (Chloride) 50 mls @ 0 mls/hr IV .Q0M [facility]; Protocol Last Admin: 04/25/20 12:33 Dose: 15 mg/hr, 7.5 mls/hr Documented by: Piperacillin Sod/Tazobactam (Sod 3.375 gm/ Sodium Chloride) 50 mls @ 12.5 mls/hr IV Q12H [facility]; Protocol Vancomycin HCl 1,000 mg/ (Sodium Chloride) 250 mls @ 250 mls/hr IV Q48H [facility]; Protocol Insulin Aspart (Novolog) 0 unit SUBCUT BEDTIME [facility]; Protocol Last Admin: 04/24/20 21:36 Dose: Not Given Documented by: Insulin Aspart (Novolog) 0 unit SUBCUT TIDWM [facility]; Protocol Last Admin: 04/25/20 12:28 Dose: Not Given Documented by: Isosorbide Mononitrate (Imdur) 60 mg PO QAM [facility] Last Admin: 04/25/20 10:45 Dose: Not Given Documented by: Metolazone (Zaroxolyn) 5 mg PO DAILY [facility] Last Admin: 04/25/20 08:46 Dose: 5 mg Documented by: Metoprolol Tartrate (Lopressor) 25 mg PO BID [facility] Last Admin: 04/23/20 17:21 Dose: Not Given Documented by: Morphine Sulfate (Morphine) 2 mg IVP Q4H PRN PRN Reason: SEVERE PAIN Last Admin: 04/24/20 00:53 Dose: 2 mg Documented by: Multi-Ingredient Ointment (Eucerin) 1 applic TOPICAL BID [facility] Last Admin: 04/25/20 09:02 Dose: 1 applic Documented by: Naloxone HCl (Narcan) 0.1 mg IVP Q2M PRN PRN Reason: OPIATERV Ondansetron HCl (Zofran) 4 mg IVP Q8H PRN PRN Reason: vomiting, or N/V if npo Pantoprazole Sodium (Protonix) 40 mg IVP DAILY [facility] Last Admin: 04/25/20 08:56 Dose: 40 mg Documented by: Potassium Chloride (Potassium Chloride Oral Liquid) 10 meq PO DAILY [facility] Last Admin: 04/25/20 08:55 Dose: 10 meq Documented by: Trazodone HCl (Desyrel) 50 mg PO BEDTIME [facility] Last Admin: 04/24/20 21:36 Dose: 50 mg Documented by: Vitals/I&O/Wt Last Vital Signs Temp 98.5 F 04/25/20 16:00 Pulse 119 H 04/25/20 17:04 Resp 28 H 04/25/20 16:11 BP 118/73 04/25/20 16:00 Pulse Ox 95 04/25/20 17:04 04/25/20 04/25/20 04/25/20 06:59 14:59 22:59 Intake Total 199.75 / 1046.375 203.373 / 203.373 Output Total 650 / 2600 575 / 575 475 / 1050 Balance -450.25 / -1553.625 -371.627 / -371.627 -475 / -846.627 Weight last 48 hrs Weight 195 lb 8 oz Weight 202 lb Physical Exam Narrative: EXAM NARRATIVE: GENERAL: The patient is intubated and sedated. HEENT: No significant pallor, icterus or lymphadenopathy.Oral cavity: There are no mucous membrane lesions. NECK: Trachea appears to be central. No masses noted. No JVD or thyromegaly appreciated. RESPIRATORY: Chest is symmetrical. No intercostals muscle retraction or any accessory muscle activation. There is no chest wall tenderness. Breath sounds are heard bilaterally. No rales or rhonchi heard. No evidence of any consolidation. Scattered crackles in the bases BREASTS: Deferred. [] HEART: The heart sounds are normal. No S3 or S4. Short systolic murmur at the base of the heart.. No pericardial rub ABDOMEN: No vessel pulsations or distention. No tenderness. No organomegaly appreciated. Bowel sounds are normally heard. [] : Deferred. [] RECTAL: Deferred. [] LYMPHATIC: No lymphadenopathy noted in the neck or groin. [] EXTREMITIES: No edema or cyanosis. No clubbing. Peripheral pulses are palpated in fairly good volume and amplitude MUSCULOSKELETAL: No acute joint deformities or swelling SKIN: There are no significant rashes or ecchymosis NEUROPSYCHIATRIC: Intubated and sedated. Moves all extremities. Urinary Catheter Management^: Whitley: Cath Placed During This Visit: yes Reason for Continuing Indwelling Catheter: Accurate Measurement of Urinary O utput in Critically Ill Patients Urinary Catheter Date of Insertion: 04/22/20 Urinary Catheter Time of Insertion: 18:43 Data : 04/25/20 03:15 04/25/20 03:15 Micro: Microbiology 04/23/20 02:01 Blood Culture - Preliminary Blood Coagulase negativ staphylococc 04/23/20 11:30 Gram Stain - Final Sputum - Endotracheal Tube Aspirate Sputum Culture - Final A&P Assessment and plan (1) Acute on chronic diastolic (congestive) heart failure: Clinically getting compensated. May continue careful IV diuresis. Status: Acute (2) Atrial fibrillation with rapid ventricular response: Continues in atrial fibrillation with mostly controlled ventricular response rate. Occasionally he may have some rapid ventricular rate response. Status: Resolved (3) Acute kidney injury superimposed on chronic kidney disease: The kidney function seems to be slowly getting worse. Status: Acute (4) Diabetes mellitus: Blood sugar seems to be fairly under control Status: Chronic Qualifiers: Diabetes mellitus type: type 2 Diabetes mellitus lobsterman insulin use: without custodial use Diabetes mellitus complication status: with hyperglycemia Qualified Code(s): E11.65 - Type 2 diabetes mellitus with hyperglycemia (5) Anemia: Patient had a GI bleed. Apparently he received blood transfusion. Her he moglobin seems to be holding up. Management as primary. Status: Acute Qualifiers: Anemia type: iron deficiency Iron deficiency anemia type: chronic blood loss Qualified Code(s): D50.0 - Iron deficiency anemia secondary to blood loss (chronic) Additional A&P Information The family is talking about the CODE STATUS. Based on the patient's clinical progress, further management decisions will be made. Attestations Medical Necessity Statement*: Disposition as per the primary Coding Level of Care Code Acute International Marketing Intern for [facility] Diagnoses Acute on chronic diastolic (congestive) heart failure I50.33 Atrial fibrillation with rapid ventricular response I48.91 Acute kidney injury superimposed on chronic kidney disease N17.9; N18.9 Diabetes mellitus E11.65 Diabetes mellitus type: type 2 Diabetes mellitus lobsterman insulin use: without lobsterman use Diabetes mellitus complication status: with hyperglycemia Anemia D50.0 Anemia type: iron deficiency Iron deficiency anemia type: chronic blood loss
--- NOTE | 2020-04-25 18:17 | PC.NURSE ---
Patient is not alert enough to swallow. Held PO meds: Metoprolol and ferrous sulfate. Dr michael Romero.
[2020-04-25] MEDS: LORazepam 2 mg/mL INJ 1 mL 1 MG IVP (19:29)
[2020-04-25 21:38] LABS: Glucose Point of Care 155 mg/dL (70-110)
--- NOTE | 2020-04-25 21:48 | PC.NURSE ---
PO medications held per Dr. Arnold.
[2020-04-26] VITALS (43 sets, daily range): BP systolic 82–133; BP diastolic 51–76; PULSE 68–127; RESP 0–35; TEMP 36.4–37.3; O2SAT 89–98; BMI 29.2
[2020-04-26] MEDS: ipratropium-albuterol 3 mL Neb INHALATION ×7 (00:07→23:18)
[2020-04-26] MEDS: LORazepam 2 mg/mL INJ 1 mL 1 MG IVP ×3 (01:12→21:58)
[2020-04-26] MEDS: FUROsemide 100 MG in sodium chloride 0.9% 40 ML 7.5 MG IV ×2 (01:56→17:19)
[2020-04-26 04:04] LABS: Magnesium 2.6 mg/dL (1.7-2.3)
[2020-04-26 04:10] LABS: Alanine Aminotransferase 20 U/L (0-41); Alkaline Phosphatase 148 IU/L (40-130); Anion Gap 29.7 (5-19); Aspartate Amino Transferase 32 U/L (0-40); Blood Urea Nitrogen 74 mg/dL (8-23); Calcium 8.5 mg/dL (8.5-10.5); Carbon Dioxide 18 mmol/L (22-29); Chloride 103 mmol/L (98-107); Globulin 3.5 g/dL (1.3-4.6); Glucose 144 mg/dL (65-115); Osmolality Calculated 328 mOsm/kg (285-295); Potassium 3.7 mmol/L (3.5-5.1); Sodium 147 mmol/L (136-145); Total Bilirubin 0.4 mg/dL (0.15-1.2); Total Protein 6.5 g/dL (6.6-8.7)
--- NOTE | 2020-04-26 07:15 | PC.NURSE ---
Patient's son called in requesting an update. Nurse advised son that the patient is still unresponsive. It appears that kidney function is declining evidenced by decreased urine output. Dialysis may be necessary in the near future. He will talk to his other family members about pt condition, future interventions, and will speak to Dr Arnold later today about how to procede. .
--- NOTE | 2020-04-26 07:20 | P.PN_ITS ---
Subjective Subjective: Interval history: Poorly responsive. Extubated, on BIPAP overnight. Good urine output yesterday of 1600ml but did drop a little in the night down to 500ml. No pressors and Bp meds being held. Hemodynamics remain stable Medications: Reviewed: Yes Medication Review Details: Current Medications Acetaminophen (Tylenol) 650 mg PO Q6H PRN PRN Reason: Mild/Mod Pain Or Temp >/= 101 Hydrocodone Bitart/Acetaminophen ([place] 5-325 Mg) 1 tab PO Q4H PRN PRN Reason: MODERATE TO SEVERE PAIN Albuterol/Ipratropium (Duoneb) 3 ml INHALATION Q4H.RESPIRATORY [facility] Last Admin: 04/25/20 15:58 Dose: 3 ml Documented by: Amiodarone HCl (Cordarone) 200 mg PO DAILY [facility] Last Admin: 04/25/20 08:46 Dose: 200 mg Documented by: Amlodipine Besylate (Norvasc) 10 mg PO DAILY [facility] Last Admin: 04/23/20 09:39 Dose: 10 mg Documented by: Atorvastatin Calcium (Lipitor) 20 mg PO BEDTIME [facility] Last Admin: 04/24/20 21:36 Dose: 20 mg Documented by: Bisacodyl (Dulcolax) 10 mg PO DAILY PRN PRN Reason: CONSTIPATION Dextrose (D50w) 25 ml IVP ONCE PRN; Protocol PRN Reason: hypoglycemia protocol Dextrose (D50w) 50 ml IVP PRN PRN; Protocol PRN Reason: hypoglycemia protocol Ferrous Sulfate (Ferrous Sulfate) 325 mg PO BIDWM [facility] Last Admin: 04/25/20 08:45 Dose: 325 mg Documented by: Gabapentin (Neurontin) 400 mg PO DAILY [facility] Last Admin: 04/25/20 08:46 Dose: 400 mg Documented by: Glucagon (Glucagen) 1 mg IM ONCE PRN; Protocol PRN Reason: Adult Acute Hypoglycemia Prot. Hydralazine HCl (Apresoline) 25 mg PO TID [facility] Last Admin: 04/25/20 14:52 Dose: 25 mg Documented by: Dextrose (D5w) 500 mls @ 100 mls/hr IV ONCE PRN; Protocol PRN Reason: Adult Acute Hypoglycemia Prot Propofol (Diprivan) 1,000 mg in 100 mls @ 0 mls/hr IV .Q0M [facility]; Protocol Last Titration: 04/25/20 10:30 Dose: 0 mcg/kg/min, 0 mls/hr Documented by: Furosemide 100 mg/ Sodium (Chloride) 50 mls @ 0 mls/hr IV .Q0M [facility]; Protocol Last Admin: 04/25/20 12:33 Dose: 15 mg/hr, 7.5 mls/hr Documented by: Piperacillin Sod/Tazobactam (Sod 3.375 gm/ Sodium Chloride) 50 mls @ 12.5 mls/hr IV Q12H [facility]; Protocol Vancomycin HCl 1,000 mg/ (Sodium Chloride) 250 mls @ 250 mls/hr IV Q48H [facility]; Protocol Insulin Aspart (Novolog) 0 unit SUBCUT BEDTIME [facility]; Protocol Last Admin: 04/24/20 21:36 Dose: Not Given Documented by: Insulin Aspart (Novolog) 0 unit SUBCUT TIDWM [facility]; Protocol Last Admin: 04/25/20 12:28 Dose: Not Given Documented by: Isosorbide Mononitrate (Imdur) 60 mg PO QAM [facility] Last Admin: 04/25/20 10:45 Dose: Not Given Documented by: Metolazone (Zaroxolyn) 5 mg PO DAILY [facility] Last Admin: 04/25/20 08:46 Dose: 5 mg Documented by: Metoprolol Tartrate (Lopressor) 25 mg PO BID [facility] Last Admin: 04/23/20 17:21 Dose: Not Given Documented by: Morphine Sulfate (Morphine) 2 mg IVP Q4H PRN PRN Reason: SEVERE PAIN Last Admin: 04/24/20 00:53 Dose: 2 mg Documented by: Multi-Ingredient Ointment (Eucerin) 1 applic TOPICAL BID [facility] Last Admin: 04/25/20 09:02 Dose: 1 applic Documented by: Naloxone HCl (Narcan) 0.1 mg IVP Q2M PRN PRN Reason: OPIATERV Ondansetron HCl (Zofran) 4 mg IVP Q8H PRN PRN Reason: vomiting, or N/V if npo Pantoprazole Sodium (Protonix) 40 mg IVP DAILY [facility] Last Admin: 04/25/20 08:56 Dose: 40 mg Documented by: Potassium Chloride (Potassium Chloride Oral Liquid) 10 meq PO DAILY [facility] Last Admin: 04/25/20 08:55 Dose: 10 meq Documented by: Trazodone HCl (Desyrel) 50 mg PO BEDTIME [facility] Last Admin: 04/24/20 21:36 Dose: 50 mg Documented by: Vitals/I&O/Wt Last Vital Signs Temp 98.6 F 04/25/20 19:00 Pulse 98 04/26/20 06:00 Resp 25 H 04/26/20 06:00 BP 109/65 04/26/20 06:00 Pulse Ox 95 04/26/20 06:00 04/25/20 04/26/20 04/26/20 22:59 06:59 14:59 Intake Total 50 / 253.373 49.25 / 302.623 Output Total 775 / 1350 250 / 1600 Balance -725 / -1096.627 -200.75 / -1297.377 Weight last 48 hrs Weight 88.677 kg Physical Exam Narrative: EXAM NARRATIVE: Constitutional: Drowsy, on BIPAP HEENT: Wet mucosa, no jvp, non icteric Lungs: Bilaterally clear coarse, diminished all lung zones CVS: S1 S2, no murmurs Abdo: Soft, BS ok Ext 4: global edema, peripheral perfusion with no cyanosis Neurological: Grossly non-focal Urinary Catheter Management^: Whitley: Cath Placed During This Visit: yes Reason for Continuing Indwelling Catheter: Accurate Measurement of Urinary Output in Critically Ill Patients Urinary Catheter Date of Insertion: 04/22/20 Urinary Catheter Time of Insertion: 18:43 Data : 04/25/20 03:15 04/26/20 03:16 Micro: Microbiology 04/23/20 02:01 Blood Culture - Preliminary Blood Coagulase negativ staphylococc 04/23/20 11:30 Gram Stain - Final Sputum - Endotracheal Tube Aspirate Sputum Culture - Final A&P Additional A&P Information 1. JED on CKD Consistent with CRS but also element of IVVD as creatinine is drifting up but UO is robust No acute need for dialysis today; but trend in creatinine is worrisome; UO came down a little in the night to 500ml, but total yesterday 1600ml Lasix GTT and Metolazone on board No hard indication for dialysis but it is likely to be needed soon On going discussion about goals of care regarding need for dialysis Strict ins and outs, avoid usual nephrotoxic medication. 2. Lytes - minor non critical aberration - close monitoring while aggressively diuresing - no need to load with sodium bicarb 3. Hypertension. Hemodynamics remain stable without Bp meds or pressors 4. Anemia - serial H/H, low iron sat, s/p venofer On going discussion with family regarding plans of care including dialysis Thank you for consultation, as always is a pleasure to follow these patients with you Antonino Harden MD Nephrology [phone] Patient seen and examined via telemedicine, with the assistance of the bedside RN Attestations Medical Necessity Statement*: eval for JED Coding Level of Care Code Acute Artificial Stone Setter for [facility]
--- NOTE | 2020-04-26 08:12 | PC.NURSE ---
Patient has an altered mental status and unable to swallow. Held PO meds, Alterted Dr Arnold.
[2020-04-26 09:47] LABS: Basophils # 0.1 10^3/uL (0.0-0.1); Basophils % 0.6 %; Eosinophils # 0.1 10^3/uL (0.0-0.8); Hematocrit 32.9 % (42.0-52.0); Hemoglobin 9.2 g/dL (11.7-16.6); Lymphocytes # 0.8 10^3/uL (0.8-4.8); Lymphocytes % 8.1 %; Mean Corpuscular Hemoglobin 25.7 pg (28.0-34.0); Mean Corpuscular Volume 91.9 fL (80-94); Mean Platelet Volume 10.2 fL (7.4-10.4); Monocytes # 1.2 10^3/uL (0.2-0.9); Monocytes % 12.7 %; Neutrophils # 7.27 10^3/uL (1.8-7.7); Neutrophils % 76.8 %; Nucleated Red Blood Cells % 0 %; Platelet Count 321 10^3/cmm (130-400); Red Blood Count 3.58 10^6/uL (4.1-5.3); Red Cell Distribution Width 16.8 % (12.1-15.1); White Blood Count 9.5 10^3/uL (4.0-10.0)
[2020-04-26] MEDS: metoprolol tartrate 1 mg/1 mL SDV 5 mL 5 MG IV ×3 (09:50→18:05)
--- NOTE | 2020-04-26 10:14 | PC.NURSE ---
Opened eyes and squeezed writers hand on command. Sat pt up, removed bipap to moisten his mouth and encouraged him to cough. put back on bipap.
--- NOTE | 2020-04-26 10:25 | PC.SOCIAL ---
IMM Updated Page 2 of IMM updated. Initialed, dated, and timed and placed back in chart.
[2020-04-26] MEDS: piperacillin-tazobactam 3.375 GM in sodium chloride 0.9% (plus) 50 ML IV ×2 (10:28→21:58)
[2020-04-26] MEDS: pantoprazole 40 mg SDV IVP ×2 (10:35→21:59)
[2020-04-26] MEDS: eucerin cream 113 gm Jar 1 APPLIC TOPICAL ×2 (10:39→18:42)
--- NOTE | 2020-04-26 11:10 | PC.OT ---
OT NOTE: OT EVALUATION ATTEMPTED THIS A.M. PATIENT UNABLE TO VERBALIZE OR FOLLOW ANY DIRECTIONS AT THIS TIME. UNABLE TO ACTIVELY PARTICIPATE IN SKILLED OT EVALUATION. WILL ATTEMPT AGAIN AT A LATER TIME.
[2020-04-26 11:26] LABS: Glucose Point of Care 153 mg/dL (70-110)
--- NOTE | 2020-04-26 13:21 | PC.NURSE ---
Bed bath and linen change provided to patient. Turned patient to right side lying.
--- NOTE | 2020-04-26 13:30 | PC.NURSE ---
Receied call from patient's son wanting an updated. Nurse advised no updates from our earlier conversation. Mental status is still altered. Family would like to talk to Dr Arnold before making healthcare decisions.
--- NOTE | 2020-04-26 14:17 | PC.OT ---
OT NOTE: OT EVALUATION ATTEMPTED AGAIN IN P.M. NURSING REQUESTS HOLD DUE TO FAMILY NEEDING TO MAKE END OF LIFE DECISIONS.
--- NOTE | 2020-04-26 15:00 | PM.PN ---
Subjective Subjective: Interval history: Patient is currently extubated. However he still is not responding appropriately to the verbal commands. The vital signs seems to be stable. Telemetry shows atrial fibrillation with rapid ventricular rate around 112 bpm. No fever. Medications: Reviewed: Yes Medication Review Details: Current Medications Acetaminophen (Tylenol) 650 mg PO Q6H PRN PRN Reason: Mild/Mod Pain Or Temp >/= 101 Hydrocodone Bitart/Acetaminophen ([place] 5-325 Mg) 1 tab PO Q4H PRN PRN Reason: MODERATE TO SEVERE PAIN Albuterol/Ipratropium (Duoneb) 3 ml INHALATION Q4H.RESPIRATORY [facility] Last Admin: 04/26/20 11:06 Dose: 3 ml Documented by: Amiodarone HCl (Cordarone) 200 mg PO DAILY [facility] Last Admin: 04/26/20 08:10 Dose: Not Given Documented by: Amlodipine Besylate (Norvasc) 10 mg PO DAILY [facility] Last Admin: 04/23/20 09:39 Dose: 10 mg Documented by: Atorvastatin Calcium (Lipitor) 20 mg PO BEDTIME [facility] Last Admin: 04/25/20 21:52 Dose: Not Given Documented by: Bisacodyl (Dulcolax) 10 mg PO DAILY PRN PRN Reason: CONSTIPATION Dextrose (D50w) 25 ml IVP ONCE PRN; Protocol PRN Reason: hypoglycemia protocol Dextrose (D50w) 50 ml IVP PRN PRN; Protocol PRN Reason: hypoglycemia protocol Ferrous Sulfate (Ferrous Sulfate) 325 mg PO BIDWM [facility] Last Admin: 04/26/20 08:10 Dose: Not Given Documented by: Gabapentin (Neurontin) 400 mg PO DAILY [facility] Last Admin: 04/26/20 08:10 Dose: Not Given Documented by: Glucagon (Glucagen) 1 mg IM ONCE PRN; Protocol PRN Reason: Adult Acute Hypoglycemia Prot. Hydralazine HCl (Apresoline) 25 mg PO TID [facility] Last Admin: 04/26/20 08:10 Dose: Not Given Documented by: Dextrose (D5w) 500 mls @ 100 mls/hr IV ONCE PRN; Protocol PRN Reason: Adult Acute Hypoglycemia Prot Propofol (Diprivan) 1,000 mg in 100 mls @ 0 mls/hr IV .Q0M [facility]; Protocol Last Titration: 04/25/20 10:30 Dose: 0 mcg/kg/min, 0 mls/hr Documented by: Furosemide 100 mg/ Sodium (Chloride) 50 mls @ 0 mls/hr IV .Q0M [facility]; Protocol Last Admin: 04/26/20 01:56 Dose: 15 mg/hr, 7.5 mls/hr Documented by: Piperacillin Sod/Tazobactam (Sod 3.375 gm/ Sodium Chloride) 50 mls @ 12.5 mls/hr IV Q12H [facility]; Protocol Last Admin: 04/26/20 10:28 Dose: 12.5 mls/hr Documented by: Vancomycin HCl 1,000 mg/ (Sodium Chloride) 250 mls @ 250 mls/hr IV Q48H [facility]; Protocol Insulin Aspart (Novolog) 0 unit SUBCUT BEDTIME [facility]; Protocol Last Admin: 04/25/20 21:39 Dose: 2 unit Documented by: Insulin Aspart (Novolog) 0 unit SUBCUT TIDWM [facility]; Protocol Last Admin: 04/26/20 12:33 Dose: 4 unit Documented by: Isosorbide Mononitrate (Imdur) 60 mg PO QAM [facility] Last Admin: 04/26/20 08:10 Dose: Not Given Documented by: Lorazepam (Ativan) 1 mg IVP Q4H PRN PRN Reason: ANXIETY Last Admin: 04/26/20 05:22 Dose: 1 mg Documented by: Metolazone (Zaroxolyn) 5 mg PO DAILY [facility] Last Admin: 04/26/20 08:11 Dose: Not Given Documented by: Metoprolol Tartrate (Lopressor) 25 mg PO BID [facility] Last Admin: 04/26/20 08:11 Dose: Not Given Documented by: Metoprolol Tartrate (Metoprolol Tartrate) 5 mg IV Q4H [facility] Last Admin: 04/26/20 09:50 Dose: 5 mg Documented by: Morphine Sulfate (Morphine) 2 mg IVP Q4H PRN PRN Reason: SEVERE PAIN Last Admin: 04/24/20 00:53 Dose: 2 mg Documented by: Multi-Ingredient Ointment (Eucerin) 1 applic TOPICAL BID [facility] Last Admin: 04/26/20 10:39 Dose: 1 applic Documented by: Naloxone HCl (Narcan) 0.1 mg IVP Q2M PRN PRN Reason: OPIATERV Ondansetron HCl (Zofran) 4 mg IVP Q8H PRN PRN Reason: vomiting, or N/V if npo Pantoprazole Sodium (Protonix) 40 mg IVP DAILY [facility] Last Admin: 04/26/20 10:35 Dose: 40 mg Documented by: Potassium Chloride (Potassium Chloride Oral Liquid) 10 meq PO DAILY [facility] Last Admin: 04/26/20 08:11 Dose: Not Given Documented by: Trazodone HCl (Desyrel) 50 mg PO BEDTIME [facility] Last Admin: 04/25/20 21:52 Dose: Not Given Documented by: Vitals/I&O/Wt Last Vital Signs Temp 98.8 F 04/26/20 12:00 Pulse 74 04/26/20 13:13 Resp 25 H 04/26/20 12:00 BP 124/55 04/26/20 12:00 Pulse Ox 95 04/26/20 13:13 04/26/20 04/26/20 04/26/20 06:59 14:59 22:59 Intake Total 99.25 / 352.623 Output Total 250 / 1600 240 / 240 Balance -150.75 / -1247.377 -240 / -240 Weight last 48 hrs Weight 192 lb 8 oz Weight 195 lb 8 oz Physical Exam Narrative: EXAM NARRATIVE: GENERAL: The patient is currently extubated HEENT: No significant pallor, icterus or lymphadenopathy.Oral cavity: There are no mucous membrane lesions. NECK: Trachea appears to be central. No masses noted. No JVD or thyromegaly appreciated. RESPIRATORY: Chest is symmetrical. No intercostals muscle retraction or any accessory muscle activation. There is no chest wall tenderness. Breath sounds are heard bilaterally. No rales or rhonchi heard. No evidence of any consolidation. Scattered crackles in the bases. Breath sounds are diminished in the bases BREASTS: Deferred. HEART: The heart sounds are normal. No S3 or S4. Ejection systolic murmur grade 3/6 at the base of the heart.. No pericardial rub ABDOMEN: No vessel pulsations or distention. No tenderness. No organomegaly appreciated. Bowel sounds are normally heard. : Deferred. RECTAL: Deferred. LYMPHATIC: No lymphadenopathy noted in the neck or groin. EXTREMITIES: Trace edema with no cyanosis.. No clubbing. Peripheral pulses are palpated in fairly good volume and amplitude MUSCULOSKELETAL: No acute joint deformities or swelling SKIN: There are no significant rashes or ecchymosis NEUROPSYCHIATRIC: Intubated and sedated. Moves all extremities. Urinary Catheter Management^: Whitley: Cath Placed During This Visit: yes Reason for Continuing Indwelling Catheter: Accurate Measurement of Urinary Output in Critically Ill Patients Urinary Catheter Date of Insertion: 04/22/20 Urinary Catheter Time of Insertion: 18:43 Data : 04/26/20 03:16 04/26/20 03:16 Micro: Microbiology 04/23/20 02:01 Blood Culture - Preliminary Blood Coagulase negativ staphylococc 04/23/20 11:30 Gram Stain - Final Sputum - Endotracheal Tube Aspirate Sputum Culture - Final A&P Assessment and plan (1) Acute on chronic diastolic (congestive) heart failure: Clinically getting compensated. May continue careful IV diuresis. Status: Acute (2) Atrial fibrillation with rapid ventricular response: Patient may be given IV metoprolol 5 mg every 6 hours as needed. He is still not able to take anything orally. Status: Resolved (3) Acute kidney injury superimposed on chronic kidney disease: The kidney function seems to be slowly getting worse. Hemodialysis is being contemplated. Family is undecided. Status: Acute (4) Diabetes mellitus: Blood sugar seems to be fairly under control Status: Chronic Qualifiers: Diabetes mellitus complication status: with hyperglycemia Diabetes mellitus jail insulin use: without equipment operator intermodal yard use Diabetes mellitus type: type 2 Qualified Code(s): E11.65 - Type 2 diabetes mellitus with hyperglycemia (5) Anemia: Patient had a GI bleed. Apparently he received blood transfusion. Her hemoglobin seems to be holding up. Management as primary. Status: Acute Qualifiers: Anemia type: iron deficiency Iron deficiency anemia type: chronic blood loss Qualified Code(s): D50.0 - Iron deficiency anemia secondary to blood loss (chronic) Additional A&P Information The family is talking about the CODE STATUS. Based on the patient's clinical progress, further management decisions will be made. Attestations Medical Necessity Statement*: Patient requires continued hospital stay for close monitoring and further management Coding Level of Care Code Acute Patroller for [facility] Fwd Diagnoses Acute on chronic diastolic (congestive) heart failure I50.33 Atrial fibrillation with rapid ventricular response I48.91 Acute kidney injury superimposed on chronic kidney disease N17.9; N18.9 Diabetes mellitus E11.65 Diabetes mellitus complication status: with hyperglycemia Diabetes mellitus jail insulin use: without jail use Diabetes mellitus type: type 2 Anemia D50.0 Anemia type: iron deficiency Iron deficiency anemia type: chronic blood loss
[2020-04-26] MEDS: vancomycin 1,000 MG in sodium chloride 0.9% 250 ML 250 MG IV (15:16)
--- NOTE | 2020-04-26 15:30 | PC.NURSE ---
Patient appears increasingly restless, questioned patient about pain and he can indicate pain at his sacral area by nodding head head. Repositioning does not relieve pain. Nurse rovided prn morphine for pain.
[2020-04-26] MEDS: morphine 4 mg/mL SDV 1 mL 2 MG IVP (15:33)
--- NOTE | 2020-04-26 16:07 | PM.PN ---
Subjective Subjective: Interval history: Patient awake on BiPAP at time of exam this morning. Discussed with him current plan of care. Discussed with him consideration of dialysis, and discussing this he shook his head yes. Long discussion with patient's son this evening, he is discussed further and will come in to discuss with patient again tonight. He would like to proceed with dialysis at this time. Vitals/I&O/Wt Last Vital Signs Temp 98.8 F 04/26/20 12:00 Pulse 126 H 04/26/20 16:00 Resp 26 H 04/26/20 16:00 BP 125/69 04/26/20 14:00 Pulse Ox 92 04/26/20 16:00 04/26/20 04/26/20 04/26/20 06:59 14:59 22:59 Intake Total 99.25 / 352.623 Output Total 250 / 1600 240 / 240 Balance -150.75 / -1247.377 -240 / -240 Weight last 48 hrs Weight 87.317 kg Weight 88.677 kg Physical Exam Const: COMMON NORMALS: alert ORIENTATION/CONSCIOUSNESS: Yes awake OTHER: Awake and alert but lethargic HENMT: COMMON NORMALS: normocephalic and atraumatic HEAD & SCALP: normocephalic and atraumatic Eye: COMMON NORMALS: Equal, round and reactive pupils present PUPIL: Yes Equal, round and reactive pupils present Neck/C-Spine: COMMON NORMALS: supple GENERAL: Yes normal visual inspection Resp: EFFORT & INSPECTION: Yes tachypneic, Yes labored and Yes uses accessory muscles AUSCULTATION: crackles, no rhonchi and wheezes OTHER: Improvement in crackles bilaterally, BiPAP in place Cardio: COMMON NORMALS: regular rhythm RATE: bradycardic RHYTHM: regular rhythm GI: COMMON NORMALS: Soft to palpation and non-tender INSPECTION: No abdominal distension AUSCULTATION: Yes normoactive bowel sounds PALPATION: Yes Soft to palpation Extremity: COMMON NORMALS: no calf tenderness OTHER: 1+ pitting edema in the lower extremities bilaterally Neuro: COMMON NORMALS: CN's II-XII intact bilaterally, moves all extremities and no focal motor deficits SENSORIUM/ORIENTATION: Yes alert SPEECH: speech normal OTHER: sleepy today, but answers yes and no questions appropriately Psych: COMMON NORMALS: mental status grossly normal and cooperative Skin: OTHER: Dry skin on the lower extremities bilaterally Urinary Catheter Management^: Jaquez: Cath Placed During This Visit: yes Reason for Continuing Indwelling Catheter: Accurate Measurement of Urinary Output in Critically Ill Patients Urinary Catheter Date of Insertion: 04/22/20 Urinary Catheter Time of Insertion: 18:43 Data : 04/26/20 03:16 04/26/20 03:16 Micro: Microbiology 04/23/20 02:01 Blood Culture - Preliminary Blood Coagulase negativ staphylococc 04/23/20 11:30 Gram Stain - Final Sputum - Endotracheal Tube Aspirate Sputum Culture - Final A&P Assessment and plan (1) Acute on chronic diastolic (congestive) heart failure: Extubated on 04/25/20 Remains on BiPAP Cardiology consult appreciated Remains on Lasix drip Patient continues to have increasing BUN and creatinine, discussion with patient's son today along with discussion with patient and in agreement to dialysis. Called to Dr. Garcia for dialysis catheter placement. Status: Acute (2) Chronic anemia: Acute on chronic anemia also with iron deficiency Fecal occult blood positive this admission, no evidence of any active bleeding at this time, continue on PPI twice daily Consult to general surgery for dialysis catheter placement, will discuss once patient is medically stable may require endoscopy Status: Acute (3) Chronic kidney disease: Chronic kidney disease increasing BUN and creatinine Appreciate nephrology consultation BUN and creatinine continue to worsen. Discussed with patient's son and with patient today and they have agreed for dialysis. Will consult surgery for Status: Chronic (4) Ventricular tachycardia: Prior history of ventricular tachycardia, continue on amiodarone 200 mg daily, restart metoprolol 25 mg twice daily today Status: Resolved (5) High risk medication use: Status: Acute (6) Edema, peripheral: Severe peripheral lower extremity edema, improved Status: Acute (7) Dyslipidemia: Continue home statin Status: Acute (8) Hypertension: BP improved, restart metoprolol IV due to inability to take PO Status: Acute Qualifiers: Hypertension type: essential hypertension Qualified Code(s): I10 - Essential (primary) hypertension (9) Dementia: Status: Chronic Qualifiers: Dementia behavioral disturbance: without behavioral disturbance Dementia type: Lewy body dementia Qualified Code(s): G31.83 - Dementia with Lewy bodies; F02.80 - Dementia in other diseases classified elsewhere without behavioral disturbance (10) Diabetes mellitus: Lantus held Sliding scale as needed Glipizide on hold Status: Chronic Qualifiers: Diabetes mellitus complication status: with hyperglycemia Diabetes mellitus manager intermediate insulin use: without manager intermediate use Diabetes mellitus type: type 2 Qualified Code(s): E11.65 - Type 2 diabetes mellitus with hyperglycemia (11) Atrial fibrillation: Paroxysmal atrial fibrillation IV metoprolol scheduled due to inability to take p.o. Cardiology consultation appreciated Off of anticoagulation due to anemia Status: Acute Additional A&P Information Acute respiratory failure: intubated on 04/22/20, RTAT, extubated on 04/25/2020 Difficult jaquez placement: Jaquez placed by Dr. Del Real, appreciate consultation. Question of underlying pneumonia: started on empiric antibiotics due to respiratory failure, preliminary sputum culture showing mixed upper respiratory ray, will continue to monitor closely DVT prophylaxis: SCDs, no pharmacologic prophylaxis due to anemia Diet: NPO, ST eval GI ppx: PPI CODE STATUS: Full code Attestations Medical Necessity Statement*: Patient requires hospitalization due to acute respiratory failure secondary to acute CHF exacerbation and acute on chronic kidney injury Coding Level of Care Code Acute Mud Analysis Supervisor for [facility] Fwd Exam Comprehensive Diagnoses Acute on chronic diastolic (congestive) heart failure I50.33 Chronic anemia D64.9 Chronic kidney disease N18.9 Ventricular tachycardia I47.2 High risk medication use Z79.899 Edema, peripheral R60.9 Dyslipidemia E78.5 Hypertension I10 Hypertension type: essential hypertension Dementia G31.83; F02.80 Dementia behavioral disturbance: without behavioral disturbance Dementia type: Lewy body dementia Diabetes mellitus E11.65 Diabetes mellitus complication status: with hyperglycemia Diabetes mellitus manager intermediate insulin use: without care home use Diabetes mellitus type: type 2 Atrial fibrillation I48.91
--- NOTE | 2020-04-26 16:29 | PC.NURSE ---
5 mg prn metoprolol given ivp for tachycardia.Sustained rate of 130.
--- NOTE | 2020-04-26 16:48 | PC.NURSE ---
Patient's son, Joaquin, at bedside. signed consent for hemodialysis catheter. Placed consent in physical chart.
--- NOTE | 2020-04-26 16:57 | P.CONIM_ITS ---
Providers/Reason For Consult Consulting Physican/Specialty*: General Surgery Ryne Garcia MD Reason for Consult*: Hospitalist team requesting placement of tunneled hemodialysis catheter. Attending Physician: Keesha Arnold DO Primary Care Provider: Grover Brooks History of Present Illness History of Present Illness Gagan Gandhi is a 74 year old male admitted several days ago with increasing shortness of breath. He has chronic kidney disease and his renal function has been worsening during this hospital stay. Dr. Arnold had contacted me today and made me aware that she has been in discussions with the family regarding dialysis. They have consented to proceeding with dialysis and have been counseled regarding placement of a dialysis catheter. Dr. Arnold was hoping that we could get a tunneled dialysis catheter in at some point tomorrow morning so that dialysis could proceed. Review of Systems General: Reports: ROS unobtainable due to medical condition Meds/Allergies Home Medications and Allergies Home Medications Medication Instructions Recorded Confirmed Last Taken Type chlorpheniramine maleate 4 mg 4 mg PO Q6H 07/25/19 04/21/20 04/12/20 History tablet cholecalciferol (vitamin D3) 50 1,000 unit PO DAILY tab 07/25/19 04/21/20 04/13/20 History mcg (2,000 unit) tablet colestipol 1 gram tablet 4 gm PO BID 07/25/19 04/21/20 04/13/20 History gabapentin 400 mg capsule 400 mg PO DAILY cap 07/25/19 04/21/20 04/13/20 History isosorbide mononitrate 60 mg 60 mg PO QAM 07/25/19 04/21/20 04/13/20 History tablet,extended release 24 hr omega-3 fatty acids 1,000 mg 1,000 mg PO BID 07/25/19 04/21/20 04/13/20 History capsule amlodipine 10 mg PO DAILY #60 tab 08/03/19 04/21/20 04/13/20 Rx glipizide 5 mg PO BID #60 tab 08/03/19 04/21/20 04/13/20 Rx multivitamin with iron-mineral 1 tab PO DAILY #30 tab 08/03/19 04/21/20 04/13/20 Rx amiodarone [Pacerone] See Rx Instructions .ROUTE 02/15/20 04/21/20 04/13/20 Rx .COMPLEX #60 tab metoprolol tartrate 50 mg PO BID #60 tab 02/15/20 04/21/20 04/13/20 Rx pantoprazole 40 mg PO DAILY #30 tab 02/15/20 04/21/20 04/13/20 Rx potassium chloride 10 meq PO DAILY #30 tab 02/15/20 04/21/20 04/13/20 Rx furosemide 20 mg tablet 20 mg PO DAILY tab 03/27/20 04/21/20 04/13/20 History hydralazine 25 mg tablet 25 mg PO TID 30 Days #90 tab 03/27/20 04/21/20 04/13/20 Rx furosemide [Lasix] 40 mg PO DAILY #30 tab 04/13/20 04/21/20 Unknown Rx atorvastatin 10 mg PO BEDTIME 04/21/20 04/21/20 Unknown History ferrous sulfate 325 mg PO DAILY 04/21/20 04/21/20 Unknown History trazodone 50 mg PO BEDTIME 04/21/20 04/21/20 Unknown History Allergies Allergy/AdvReac Type Severity Reaction Status Date / Time lisinopril Allergy don't Verified 04/13/20 13:49 remember Current Medications Current Medications Generic Name Dose Route Start Last Admin Trade Name Freq PRN Reason Stop Dose Admin Albuterol/Ipratropium 3 ml 04/25/20 16:00 04/26/20 15:59 Duoneb INHALATION 3 ml Q4H.RESPIRATORY DEBBIE Administration Amiodarone HCl 200 mg 04/22/20 09:00 04/26/20 08:10 Cordarone PO Not Given DAILY DEBBIE Amlodipine Besylate 10 mg 04/22/20 09:00 04/23/20 09:39 Norvasc PO 10 mg DAILY DEBBIE Administration Atorvastatin Calcium 20 mg 04/21/20 21:00 04/25/20 21:52 Lipitor PO Not Given BEDTIME DEBBIE Ferrous Sulfate 325 mg 04/24/20 18:00 04/26/20 08:10 Ferrous Sulfate PO Not Given BIDWM DEBBIE Gabapentin 400 mg 04/22/20 09:00 04/26/20 08:10 Neurontin PO Not Given DAILY DEBBIE Hydralazine HCl 25 mg 04/21/20 21:00 04/26/20 15:05 Apresoline PO Not Given TID DEBBIE Propofol 1,000 mg in 100 mls @ 0 mls/hr 04/23/20 00:15 04/25/20 10:30 Diprivan IV 0 mcg/kg/min .Q0M DEBBIE 0 mls/hr Titration Protocol Per Protocol Furosemide 100 mg/ Sodium 50 mls @ 0 mls/hr 04/23/20 00:15 04/26/20 01:56 Chloride IV 15 mg/hr .Q0M DEBBIE 7.5 mls/hr Administration Protocol Per Protocol Piperacillin Sod/Tazobactam 50 mls @ 12.5 mls/hr 04/25/20 22:00 04/26/20 10:28 Sod 3.375 gm/ Sodium Chloride IV 12.5 mls/hr Q12H DEBBIE Administration Protocol As Directed Vancomycin HCl 1,000 mg/ 250 mls @ 250 mls/hr 04/26/20 13:45 04/26/20 15:16 Sodium Chloride IV 250 mls/hr Q48H DEBBIE Administration Protocol As Directed Insulin Aspart 0 unit 04/21/20 21:00 04/25/20 21:39 Novolog SUBCUT 2 unit BEDTIME DEBBIE Administration Protocol Insulin Aspart 0 unit 04/21/20 18:00 04/26/20 12:33 Novolog SUBCUT 4 unit TIDWM DEBBIE Administration Protocol Isosorbide Mononitrate 60 mg 04/22/20 06:00 04/26/20 08:10 Imdur PO Not Given QAM DEBBIE Lorazepam 1 mg 04/25/20 19:07 04/26/20 05:22 Ativan IVP 1 mg Q4H PRN Administration ANXIETY Metolazone 5 mg 04/22/20 09:55 04/26/20 08:11 Zaroxolyn PO Not Given DAILY DEBBIE Metoprolol Tartrate 25 mg 04/23/20 18:00 04/26/20 08:11 Lopressor PO Not Given BID DEBBIE Metoprolol Tartrate 5 mg 04/26/20 09:45 04/26/20 16:26 Metoprolol Tartrate IV 5 mg Q4H DEBBIE Administration Morphine Sulfate 2 mg 04/21/20 16:18 04/26/20 15:33 Morphine IVP 2 mg Q4H PRN Administration SEVERE PAIN Multi-Ingredient Ointment 1 applic 04/23/20 09:55 04/26/20 10:39 Eucerin TOPICAL 1 applic BID DEBBIE Administration Potassium Chloride 10 meq 04/23/20 09:31 04/26/20 08:11 Potassium Chloride Oral Liquid PO Not Given DAILY DEBBIE Trazodone HCl 50 mg 04/21/20 21:00 04/25/20 21:52 Desyrel PO Not Given BEDTIME DEBBIE PFSH Acute PFSH: Medical History Acute on chronic diastolic (congestive) heart failure Echocardiogram from 04/23/2020 revealed 1. This is a technically very difficult study. 2. Normal left ventricular cavity size. Possibly normal left ventricular systolic function. This study is inadequate for estimation of regional wall motion abnormality. Grade 2 diastolic dysfunction with elevated left atrial pressure. 3. Mild pulmonary hypertension with pulmonary artery pressure estimated at 43 mmHg. 4. Ptru-db-[id number] tricuspid valve regurgitation. 5. Repeat study with echo contrast is recommended. Anemia Atrial fibrillation Benign essential hypertension with target blood pressure below 140/90 Chronic anemia Chronic kidney disease Dementia Lewy body dementia Diabetes mellitus Dyslipidemia Edema, peripheral Essential hypertension GI bleeding High risk medication use Hypertension Lewy body dementia Mixed hyperlipidemia Neuropathy Ventricular tachycardia Surgical History H/O hernia repair S/P rotator cuff repair Left Family History Mother Sudden cardiac Other Cancer Diabetes Denies family history of Anesthesia complication Bleeding disorder Social History Smoking and tobacco status: former smoker Alcohol intake: never Lives independently: Yes Marital status: / Current occupational status: retired History of recent travel: No Vitals/I&O/Wt Last Vital Signs Temp 98.8 F 04/26/20 12:00 Pulse 125 H 04/26/20 16:03 Resp 26 H 04/26/20 16:00 BP 125/69 04/26/20 14:00 Pulse Ox 94 04/26/20 16:03 04/26/20 04/26/20 04/26/20 06:59 14:59 22:59 Intake Total 99.25 / 352.623 Output Total 250 / 1600 240 / 240 Balance -150.75 / -1247.377 -240 / -240 Weight last 48 hrs Weight 192 lb 8 oz Weight 195 lb 8 oz Physical Exam Narrative: EXAM NARRATIVE: The patient was encountered in his room in the intensive care unit. He is on a BiPAP mask. He is somewhat responsive to voice but will not even answer yes or no questions by nodding consistently. The neck is free of any obvious bruits. The clavicles are palpable bilaterally. The chest is clear to auscultation anteriorly. The heart seems regular but the patient is mildly tachycardic. The abdomen is moderately obese. He has a well- healed transverse scar in the mid to low epigastrium. No obvious masses are pa lpated. The extremities reveal some very mild edema. Neurologically the patient's status is hard to evaluate. Urinary Catheter Management^: Whitley: Cath Placed During This Visit: yes Reason for Continuing Indwelling Catheter: Accurate Measurement of Urinary Output in Critically Ill Patients Urinary Catheter Date of Insertion: 04/22/20 Urinary Catheter Time of Insertion: 18:43 Data Micro: Micro: Microbiology 04/23/20 02:01 Blood Culture - Pr eliminary Blood Coagulase negat iv staphylococc 04/23/20 11:30 Gram Stain - Final Sputum - Endotrac heal Tube Aspirate Sputum Culture - F inal A&P Assessment and plan (1) Acute kidney injury superimposed on chronic kidney disease: Unfortunately, the patient is not very responsive and I just missed his family by a few minutes; they apparently left immediately after Dr. Arnold had counseled them regarding dialysis. They have already given verbal and written consent for catheter placement. I will make arrangements to place a tunneled dialysis catheter in the operating room tomorrow morning. Status: Acute Consult Attestations Medical Necessity Statement: See admitting service's notation. Coding Level of Care Code Acute Electronics Warfare Technician for [facility] Diagnoses Acute kidney injury superimposed on chronic kidney disease N17.9; N18.9
[2020-04-26 17:53] LABS: Glucose Point of Care 142 mg/dL (70-110)
[2020-04-26 17:53] LABS: Glucose Point of Care 151 mg/dL (70-110)
--- NOTE | 2020-04-26 17:59 | PC.NURSE ---
Patient's heart rate continues to be high despite 5mg dose of metoprolol 1.5 houts ago. Hr is 110-130. Nurse contacted Dr Arnold and received a one time order for metoprolol 5mg IVP.
[2020-04-27] VITALS (66 sets, daily range): BP systolic 87–138; BP diastolic 55–106; PULSE 87–128; RESP 3–30; TEMP 36.7–38; O2SAT 88–98
--- NOTE | 2020-04-27 | SCC_ITS ---
Procedure Done: Placement of 16 Fr. 28 cm HemoSplit long-term dialysis catheter into the right internal jugular vein 2.9 seconds of fluoroscopic guidance, for a cumulative dose of 0.68 mGy, was provided to Dr. Garcia by the radiology department. C-arm images of the chest were saved for the patient's permanent record. [facility]
[2020-04-27] MEDS: FUROsemide 100 MG in sodium chloride 0.9% 40 ML 7.5 MG IV (00:43)
[2020-04-27] MEDS: ipratropium-albuterol 3 mL Neb INHALATION ×5 (03:12→23:26)
[2020-04-27 03:50] LABS: Basophils # 0.1 10^3/uL (0.0-0.1); Basophils % 0.9 %; Eosinophils # 0.2 10^3/uL (0.0-0.8); Eosinophils % 2.9 %; Hemoglobin 8.8 g/dL (11.7-16.6); Lymphocytes # 0.8 10^3/uL (0.8-4.8); Lymphocytes % 9.3 %; Mean Corpuscular HGB Conc 28.4 g/dL (30.0-36.0); Mean Corpuscular Hemoglobin 25.5 pg (28.0-34.0); Mean Corpuscular Volume 89.9 fL (80-94); Mean Platelet Volume 9.6 fL (7.4-10.4); Monocytes % 12.1 %; Neutrophils # 5.93 10^3/uL (1.8-7.7); Neutrophils % 73.8 %; Nucleated Red Blood Cells % 0 %; Platelet Count 275 10^3/cmm (130-400); Red Blood Count 3.45 10^6/uL (4.1-5.3); Red Cell Distribution Width 16.8 % (12.1-15.1)
[2020-04-27 03:59] LABS: INR 1.19 (0.8-1.2)
[2020-04-27 04:14] LABS: Alanine Aminotransferase 19 U/L (0-41); Albumin Level 3.3 g/dL (3.5-5.2); Alkaline Phosphatase 153 IU/L (40-130); Anion Gap 28.5 (5-19); Aspartate Amino Transferase 26 U/L (0-40); Calcium 8.5 mg/dL (8.5-10.5); Carbon Dioxide 21 mmol/L (22-29); Chloride 105 mmol/L (98-107); Globulin 3.4 g/dL (1.3-4.6); Glucose 121 mg/dL (65-115); Osmolality Calculated 338 mOsm/kg (285-295); Potassium 3.5 mmol/L (3.5-5.1); Sodium 151 mmol/L (136-145); Total Bilirubin 0.4 mg/dL (0.15-1.2); Total Protein 6.7 g/dL (6.6-8.7)
[2020-04-27 04:18] LABS: Blood Urea Nitrogen 81 mg/dL (8-23)
[2020-04-27] MEDS: metoprolol tartrate 1 mg/1 mL SDV 5 mL 5 MG IV ×3 (04:31→20:18)
[2020-04-27] MEDS: LORazepam 2 mg/mL INJ 1 mL 1 MG IVP (05:23)
[2020-04-27 07:39] LABS: Glucose Point of Care 108 mg/dL (70-110)
[2020-04-27 07:48] LABS: Glucose Point of Care 127 mg/dL (70-110)
--- NOTE | 2020-04-27 08:00 | PC.OT ---
OT NOTE: WILL HOLD OT EVALUATION TODAY DUE TO DIALYSIS CATHETER PLACEMENT SCHEDULED FOR THIS A.M.
--- NOTE | 2020-04-27 08:18 | XR_ITS ---
WS: [id number] PORTABLE CHEST HISTORY: hypoxia COMPARISON: 04/24/2020 Significant progression of dense opacifications and consolidations throughout both lungs, greatest on the RIGHT. Obscuration of the RIGHT diaphragm. Suspect there is a component of RIGHT pleural fluid. The endotracheal and nasogastric tubes have been removed since 04/24/2020. Cardiac size: Partially obscured by the dense pulmonary consolidations and fluid. Mediastinum/Aorta: Mild atherosclerosis aorta. Osteopenia. XR/XR chest 1V portable [id number] IMPRESSION: 1. Significant progression of opacifications and consolidations since 04/24/20 20. 2. Suspect small layering RIGHT pleural effusion.
[2020-04-27] MEDS: eucerin cream 113 gm Jar 1 APPLIC TOPICAL ×2 (08:54→18:00)
[2020-04-27] MEDS: pantoprazole 40 mg SDV IVP ×2 (08:54→20:18)
--- NOTE | 2020-04-27 09:13 | PM.PN ---
Subjective Subjective: Interval history: The patient is on a BiPAP. He is on FiO2 35%. Mental status is still very poor. Appears to be sleepy most of the times. Telemetry intermittent atrial fibrillation with rapid ventricular rate. Medications: Reviewed: Yes Medication Review Details: Current Medications Acetaminophen (Tylenol) 650 mg PO Q6H PRN PRN Reason: Mild/Mod Pain Or Temp >/= 101 Hydrocodone Bitart/Acetaminophen ([place] 5-325 Mg) 1 tab PO Q4H PRN PRN Reason: MODERATE TO SEVERE PAIN Albuterol/Ipratropium (Duoneb) 3 ml INHALATION Q4H.RESPIRATORY [facility] Last Admin: 04/27/20 03:12 Dose: 3 ml Documented by: Amiodarone HCl (Cordarone) 200 mg PO DAILY [facility] Last Admin: 04/26/20 08:10 Dose: Not Given Documented by: Amlodipine Besylate (Norvasc) 10 mg PO DAILY [facility] Last Admin: 04/23/20 09:39 Dose: 10 mg Documented by: Atorvastatin Calcium (Lipitor) 20 mg PO BEDTIME [facility] Last Admin: 04/26/20 21:55 Dose: Not Given Documented by: Bisacodyl (Dulcolax) 10 mg PO DAILY PRN PRN Reason: CONSTIPATION Dextrose (D50w) 25 ml IVP ONCE PRN; Protocol PRN Reason: hypoglycemia protocol Dextrose (D50w) 50 ml IVP PRN PRN; Protocol PRN Reason: hypoglycemia protocol Ferrous Sulfate (Ferrous Sulfate) 325 mg PO BIDWM [facility] Last Admin: 04/26/20 17:39 Dose: Not Given Documented by: Gabapentin (Neurontin) 400 mg PO DAILY [facility] Last Admin: 04/26/20 08:10 Dose: Not Given Documented by: Glucagon (Glucagen) 1 mg IM ONCE PRN; Protocol PRN Reason: Adult Acute Hypoglycemia Prot. Hydralazine HCl (Apresoline) 25 mg PO TID [facility] Last Admin: 04/26/20 21:55 Dose: Not Given Documented by: Dextrose (D5w) 500 mls @ 100 mls/hr IV ONCE PRN; Protocol PRN Reason: Adult Acute Hypoglycemia Prot Propofol (Diprivan) 1,000 mg in 100 mls @ 0 mls/hr IV .Q0M [facility]; Protocol Last Titration: 04/25/20 10:30 Dose: 0 mcg/kg/min, 0 mls/hr Documented by: Furosemide 100 mg/ Sodium (Chloride) 50 mls @ 0 mls/hr IV .Q0M [facility]; Protocol Last Admin: 04/27/20 00:43 Dose: 15 mg/hr, 7.5 mls/hr Documented by: Piperacillin Sod/Tazobactam (Sod 3.375 gm/ Sodium Chloride) 50 mls @ 12.5 mls/hr IV Q12H [facility]; Protocol Last Admin: 04/26/20 21:58 Dose: 12.5 mls/hr Documented by: Vancomycin HCl 1,000 mg/ (Sodium Chloride) 250 mls @ 250 mls/hr IV Q48H [facility]; Protocol Last Admin: 04/26/20 15:16 Dose: 250 mls/hr Documented by: Insulin Aspart (Novolog) 0 unit SUBCUT BEDTIME [facility]; Protocol Last Admin: 04/26/20 21:55 Dose: Not Given Documented by: Insulin Aspart (Novolog) 0 unit SUBCUT TIDWM [facility]; Protocol Last Admin: 04/27/20 08:16 Dose: Not Given Documented by: Isosorbide Mononitrate (Imdur) 60 mg PO QAM [facility] Last Admin: 04/27/20 05:28 Dose: Not Given Documented by: Lorazepam (Ativan) 1 mg IVP Q4H PRN PRN Reason: ANXIETY Last Admin: 04/27/20 05:23 Dose: 1 mg Documented by: Metolazone (Zaroxolyn) 5 mg PO DAILY [facility] Last Admin: 04/26/20 08:11 Dose: Not Given Documented by: Metoprolol Tartrate (Lopressor) 25 mg PO BID [facility] Last Admin: 04/26/20 08:11 Dose: Not Given Documented by: Metoprolol Tartrate (Metoprolol Tartrate) 5 mg IV Q4H PRN PRN Reason: HR greater than 110 Last Admin: 04/27/20 08:54 Dose: 5 mg Documented by: Morphine Sulfate (Morphine) 2 mg IVP Q4H PRN PRN Reason: SEVERE PAIN Last Admin: 04/26/20 15:33 Dose: 2 mg Documented by: Multi-Ingredient Ointment (Eucerin) 1 applic TOPICAL BID [facility] Last Admin: 04/27/20 08:54 Dose: 1 applic Documented by: Naloxone HCl (Narcan) 0.1 mg IVP Q2M PRN PRN Reason: OPIATERV Ondansetron HCl (Zofran) 4 mg IVP Q8H PRN PRN Reason: vomiting, or N/V if npo Pantoprazole Sodium (Protonix) 40 mg IVP Q12H [facility] Last Admin: 04/27/20 08:54 Dose: 40 mg Documented by: Potassium Chloride (Potassium Chloride Oral Liquid) 10 meq PO DAILY [facility] Last Admin: 04/26/20 08:11 Dose: Not Given Documented by: Trazodone HCl (Desyrel) 50 mg PO BEDTIME [facility] Last Admin: 04/26/20 21:55 Dose: Not Given Documented by: Vitals/I&O/Wt Last Vital Signs Temp 98.8 F 04/27/20 07:30 Pulse 114 H 04/27/20 08:00 Resp 22 H 04/27/20 08:00 BP 117/72 04/27/20 08:00 Pulse Ox 96 04/27/20 08:00 04/26/20 04/27/20 04/27/20 22:59 06:59 14:59 Intake Total 50 / 100 50 / 150 Output Total 600 / 840 250 / 1090 Balance -550 / -740 -200 / -940 Weight last 48 hrs Weight 192 lb 8 oz Physical Exam Narrative: EXAM NARRATIVE: GENERAL: The patient is currently extubated. Appears to be sleepy HEENT: No significant pallor, icterus or lymphadenopathy.Oral cavity: There are no mucous membrane lesions. NECK: Trachea appears to be central. No masses noted. No JVD or thyromegaly appreciated. RESPIRATORY: Chest is symmetrical. No intercostals muscle retraction or any accessory muscle activation. There is no chest wall tenderness. Breath sounds are heard bilaterally. No rales or rhonchi heard. No evidence of any consolidation. Scattered crackles in the bases. Breath sounds are diminished in the bases BREASTS: Deferred. HEART: The heart sounds are normal. No S3 or S4. Ejection systolic murmur grade 3/6 at the base of the heart.. No pericardial rub ABDOMEN: No vessel pulsations or distention. No tenderness. No organomegaly appreciated. Bowel sounds are normally heard. : Deferred. RECTAL: Deferred. LYMPHATIC: No lymphadenopathy noted in the neck. EXTREMITIES: Trace edema with no cyanosis.. No clubbing. Peripheral pulses are palpated in fairly good volume and amplitude MUSCULOSKELETAL: No acute joint deformities or swelling SKIN: There are no significant rashes or ecchymosis NEUROPSYCHIATRIC: Intubated and sedated. Moves all extremities. Urinary Catheter Management^: Whitley: Cath Placed During This Visit: yes Reason for Continuing Indwelling Catheter: Accurate Measurement of Urinary Output in Critically Ill Patients Urinary Catheter Date of Insertion: 04/22/20 Urinary Catheter Time of Insertion: 18:43 Data : 04/27/20 03:40 04/27/20 03:40 A&P Assessment and plan (1) Acute on chronic diastolic (congestive) heart failure: Patient seems to have intermittent diastolic heart failure. Because of the recent kidney function, he requires hemodialysis. Patient is scheduled for catheter placement today Status: Acute (2) Atrial fibrillation with rapid ventricular response: Patient may be given IV metoprolol 5 mg every 4 hours as needed. He is still not able to take anything orally. Status: Resolved (3) Acute kidney injury superimposed on chronic kidney disease: The family family has decided on dialysis. 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 Status: Acute Qualifiers: Anemia type: iron deficiency Iron deficiency anemia type: chronic blood loss Qualified Code(s): D50.0 - Iron deficiency anemia secondary to blood loss (chronic) Additional A&P Information Based on the patient clinical progress, further recommendations will be made Attestations Medical Necessity Statement*: Patient requires continued hospital stay for close monitoring and further management Coding Level of Care Code Acute Ship Liner for [facility] Diagnoses Acute on chronic diastolic (congestive) heart failure I50.33 Atrial fibrillation with rapid ventricular response I48.91 Acute kidney injury superimposed on chronic kidney disease N17.9; N18.9 Diabetes mellitus E11.65 Diabetes mellitus type: type 2 Diabetes mellitus halfway insulin use: without halfway use Diabetes mellitus complication status: with hyperglycemia Anemia D50.0 Anemia type: iron deficiency Iron deficiency anemia type: chronic blood loss
[2020-04-27] MEDS: piperacillin-tazobactam 3.375 GM in sodium chloride 0.9% (plus) 50 ML IV ×2 (09:55→22:16)
--- NOTE | 2020-04-27 10:12 | P.ANESASSM_ITS ---
Pre-Anesthetic Assessment Pre-Anesthetic Assessment: Height/Weight: Height 1.73 m Weight 86.455 kg Temp Pulse Resp BP Pulse Ox 98.8 F 118 H 20 H 117/72 97 04/27/20 07:30 04/27/20 09:38 04/27/20 09:00 04/27/20 08:00 04/27/20 09:38 Preop Diagnosis: Acute hyperkalemia Proposed Procedure: Operation Date: 04/27/20 10:00 Proposed Procedures p Dialysis Catheter Insertion with Ultrasound(Right) - Ryne Garcia MD Familial anesthetic complications: unknown Exam: Pre-Anes Outpt Exam: alert, oriented x 3 and clear to auscultation bilaterally Additional Exam Findings (including area of procedure): afib w/ rvr, being followed by cardiology - given IV metoprolol - will give esmolol/metoprolol prn Airway: Additional comments: patient w/ Altered mental status Pulmonary: Pulmonary: Sleep apnea CV/HEM: CV/HEM: Afib, Anemia, CHF and HTN Comments: formerly [facility] : Comments: JED GI: GI: GERD Metabolic: Metabolic: DM and Morbid obesity Anesthetic Plan: ASA status: 4 Anesthesia: MAC Risk of > 500 ml blood loss (7ml/kg in children): No Meds/Allergies Current Medications: Current Medications Generic Name Dose Route Start Last Admin Trade Name Freq PRN Reason Stop Dose Admin Albuterol/Ipratrop ium 3 ml 04/25/20 16:00 04/27/20 09:57 Duoneb INHALATION 3 ml Q4H.RESPIRATORY S [facility] Administration Amiodarone HCl 200 mg 04/22/20 09:00 04/27/20 09:19 Cordarone PO Not Given DAILY DEBBIE Amlodipine Besylat e 10 mg 04/22/20 09:00 04/23/20 09:39 Norvasc PO 10 mg DAILY DEBBIE Administration Atorvastatin Calci um 20 mg 04/21/20 21:00 04/26/20 21:55 Lipitor PO Not Given BEDTIME DEBBIE Ferrous Sulfate 325 mg 04/24/20 18:00 04/27/20 09:19 Ferrous Sulfate PO Not Given BIDWM DEBBIE Gabapentin 400 mg 04/22/20 09:00 04/27/20 09:19 Neurontin PO Not Given DAILY DEBBIE Hydralazine HCl 25 mg 04/21/20 21:00 04/27/20 09:19 Apresoline PO Not Given TID DEBBIE Propofol 1,000 mg in 100 m ls @ 0 mls/hr 04/23/20 00:15 04/25/20 10:30 Diprivan IV 0 mcg/kg/min .Q0M DEBBIE 0 mls/hr Titration Protocol Per Protocol Furosemide 100 mg/ Sodium 50 mls @ 0 mls/hr 04/23/20 00:15 04/27/20 00:43 Chloride IV 15 mg/hr .Q0M DEBBIE 7.5 mls/hr Administration Protocol Per Protocol Piperacillin Sod/T azobactam 50 mls @ 12.5 mls /hr 04/25/20 22:00 04/27/20 09:55 Sod 3.375 gm/ So dium Chloride IV 12.5 mls/hr Q12H DEBBIE Administration Protocol As Directed Vancomycin HCl 1,0 00 mg/ 250 mls @ 250 mls /hr 04/26/20 13:45 04/26/20 15:16 Sodium Chloride IV 250 mls/hr Q48H DEBBIE Administration Protocol As Directed Insulin Aspart 0 unit 04/21/20 21:00 04/26/20 21:55 Novolog SUBCUT Not Given BEDTIME DEBBIE Protocol Insulin Aspart 0 unit 04/21/20 18:00 04/27/20 08:16 Novolog SUBCUT Not Given TIDWM [facility] Protocol Isosorbide Mononit rate 60 mg 04/22/20 06:00 04/27/20 05:28 Imdur PO Not Given QAM DEBBIE Lorazepam 1 mg 04/25/20 19:07 04/27/20 05:23 Ativan IVP 1 mg Q4H PRN Administration ANXIETY Metolazone 5 mg 04/22/20 09:55 04/27/20 09:19 Zaroxolyn PO Not Given DAILY [facility] Metoprolol Tartrat e 25 mg 04/23/20 18:00 04/26/20 08:11 Lopressor PO Not Given BID [facility] Metoprolol Tartrat e 5 mg 04/26/20 17:03 04/27/20 08:54 Metoprolol Tartr ate IV 5 mg Q4H PRN Administration HR greater than 1 10 Morphine Sulfate 2 mg 04/21/20 16:18 04/26/20 15:33 Morphine IVP 2 mg Q4H PRN Administration SEVERE PAIN Multi-Ingredient O intment 1 applic 04/23/20 09:55 04/27/20 08:54 Eucerin TOPICAL 1 applic BID [facility] Administration Pantoprazole Sodiu m 40 mg 04/26/20 21:00 04/27/20 08:54 Protonix IVP 40 mg Q12H [facility] Administration Potassium Chloride 10 meq 04/23/20 09:31 04/27/20 09:20 Potassium Chlori de Oral Liquid PO Not Given DAILY [facility] Trazodone HCl 50 mg 04/21/20 21:00 04/26/20 21:55 Desyrel PO Not Given BEDTIME [facility] Additional Medication Information: Current Medications Acetaminophen (Tylenol) 650 mg PO Q6H PRN PRN Reason: Mild/Mod Pain Or Temp >/= 101 Hydrocodone Bitart/Acetaminophen ([place] 5-325 Mg) 1 tab PO Q4H PRN PRN Reason: MODERATE TO SEVERE PAIN Albuterol/Ipratropium (Duoneb) 3 ml INHALATION Q4H.RESPIRATORY [facility] Last Admin: 04/27/20 03:12 Dose: 3 ml Documented by: Amiodarone HCl (Cordarone) 200 mg PO DAILY [facility] Last Admin: 04/26/20 08:10 Dose: Not Given Documented by: Amlodipine Besylate (Norvasc) 10 mg PO DAILY [facility] Last Admin: 04/23/20 09:39 Dose: 10 mg Documented by: Atorvastatin Calcium (Lipitor) 20 mg PO BEDTIME [facility] Last Admin: 04/26/20 21:55 Dose: Not Given Documented by: Bisacodyl (Dulcolax) 10 mg PO DAILY PRN PRN Reason: CONSTIPATION Dextrose (D50w) 25 ml IVP ONCE PRN; Protocol PRN Reason: hypoglycemia protocol Dextrose (D50w) 50 ml IVP PRN PRN; Protocol PRN Reason: hypoglycemia protocol Ferrous Sulfate (Ferrous Sulfate) 325 mg PO BIDWM [facility] Last Admin: 04/26/20 17:39 Dose: Not Given Documented by: Gabapentin (Neurontin) 400 mg PO DAILY [facility] Last Admin: 04/26/20 08:10 Dose: Not Given Documented by: Glucagon (Glucagen) 1 mg IM ONCE PRN; Protocol PRN Reason: Adult Acute Hypoglycemia Prot. Hydralazine HCl (Apresoline) 25 mg PO TID [facility] Last Admin: 04/26/20 21:55 Dose: Not Given Documented by: Dextrose (D5w) 500 mls @ 100 mls/hr IV ONCE PRN; Protocol PRN Reason: Adult Acute Hypoglycemia Prot Propofol (Diprivan) 1,000 mg in 100 mls @ 0 mls/hr IV .Q0M DEBBIE; Protocol Last Titration: 04/25/20 10:30 Dose: 0 mcg/kg/min, 0 mls/hr Documented by: Furosemide 100 mg/ Sodium (Chloride) 50 mls @ 0 mls/hr IV .Q0M DEBBIE; Protocol Last Admin: 04/27/20 00:43 Dose: 15 mg/hr, 7.5 mls/hr Documented by: Piperacillin Sod/Tazobactam (Sod 3.375 gm/ Sodium Chloride) 50 mls @ 12.5 mls/hr IV Q12H DEBBIE; Protocol Last Admin: 04/26/20 21:58 Dose: 12.5 mls/hr Documented by: Vancomycin HCl 1,000 mg/ (Sodium Chloride) 250 mls @ 250 mls/hr IV Q48H [facility]; Protocol Last Admin: 04/26/20 15:16 Dose: 250 mls/hr Documented by: Insulin Aspart (Novolog) 0 unit SUBCUT BEDTIME [facility]; Protocol Last Admin: 04/26/20 21:55 Dose: Not Given Documented by: Insulin Aspart (Novolog) 0 unit SUBCUT TIDWM [facility]; Protocol Last Admin: 04/27/20 08:16 Dose: Not Given Documented by: Isosorbide Mononitrate (Imdur) 60 mg PO QAM [facility] Last Admin: 04/27/20 05:28 Dose: Not Given Documented by: Lorazepam (Ativan) 1 mg IVP Q4H PRN PRN Reason: ANXIETY Last Admin: 04/27/20 05:23 Dose: 1 mg Documented by: Metolazone (Zaroxolyn) 5 mg PO DAILY [facility] Last Admin: 04/26/20 08:11 Dose: Not Given Documented by: Metoprolol Tartrate (Lopressor) 25 mg PO BID [facility] Last Admin: 04/26/20 08:11 Dose: Not Given Documented by: Metoprolol Tartrate (Metoprolol Tartrate) 5 mg IV Q4H PRN PRN Reason: HR greater than 110 Last Admin: 04/27/20 08:54 Dose: 5 mg Documented by: Morphine Sulfate (Morphine) 2 mg IVP Q4H PRN PRN Reason: SEVERE PAIN Last Admin: 04/26/20 15:33 Dose: 2 mg Documented by: Multi-Ingredient Ointment (Eucerin) 1 applic TOPICAL BID [facility] Last Admin: 04/27/20 08:54 Dose: 1 applic Documented by: Naloxone HCl (Narcan) 0.1 mg IVP Q2M PRN PRN Reason: OPIATERV Ondansetron HCl (Zofran) 4 mg IVP Q8H PRN PRN Reason: vomiting, or N/V if npo Pantoprazole Sodium (Protonix) 40 mg IVP Q12H [facility] Last Admin: 04/27/20 08:54 Dose: 40 mg Documented by: Potassium Chloride (Potassium Chloride Oral Liquid) 10 meq PO DAILY [facility] Last Admin: 04/26/20 08:11 Dose: Not Given Documented by: Trazodone HCl (Desyrel) 50 mg PO BEDTIME [facility] Last Admin: 04/26/20 21:55 Dose: Not Given Documented by: PFSH Anesthesia PFSH: Medical History Acute on chronic diastolic (congestive) heart failure Echocardiogram from 04/23/2020 revealed 1. This is a technically very difficult study. 2. Normal left ventricular cavity size. Possibly normal left ventricular systolic function. This study is inadequate for estimation of regional wall motion abnormality. Grade 2 diastolic dysfunction with elevated left atrial pressure. 3. Mild pulmonary hypertension with pulmonary artery pressure estimated at 43 mmHg. 4. Ibgp-[id number] tricuspid valve regurgitation. 5. Repeat study with echo contrast is recommended. Anemia Atrial fibrillation Benign essential hypertension with target blood pressure below 140/90 Chronic anemia Chronic kidney disease Dementia Lewy body dementia Diabetes mellitus Dyslipidemia Edema, peripheral Essential hypertension GI bleeding High risk medication use Hypertension Lewy body dementia Mixed hyperlipidemia Neuropathy Ventricular tachycardia Surgical History H/O hernia repair S/P rotator cuff repair Left Family History Mother Sudden cardiac Other Cancer Diabetes Denies family history of Anesthesia complication Bleeding disorder Social History Smoking and tobacco status: former smoker Alcohol intake: never Lives independently: Yes Marital status: / Current occupational status: retired History of recent travel: No Data Anesthesia CBC & Chem 7: 04/27/20 03:40 04/27/20 03:40 Other Labs: Laboratory Results - last 48 hr 04/25/20 04/25/20 04/25/20 12:07 14:45 17:14 WBC RBC Hgb Hct MCV MCH MCHC RDW Plt Count MPV Neut % (Auto) Lymph % (Auto) [place] % (Auto) Eos % (Auto) Baso % (Auto) Neut # (Auto) Lymph # (Auto) [place] # (Auto) Eos # (Auto) Baso # (Auto) Nucleated RBC % (auto) Nucleated RBCs # PT INR Specimen Type Arterial Sample Site Radial, right ABG pH 7.33 L ABG pCO2 35.3 ABG pO2 67.8 L ABG HCO3 18.6 L ABG Base Excess -6.7 L Lion Test Pos Hematocrit 31.2 L O2 Delivery Device Vent FiO2 35.0 Tidal Volume 0.40 PEEP 5.0 Picture Hanger ID Jlg Sodium Potassium Chloride Carbon Dioxide Anion Gap BUN Creatinine GFR Calculation Glucose POC Glucose 108 165 Calculated Osmolality Calcium Phosphorus Magnesium Total Bilirubin AST ALT Alkaline Phosphatase Total Protein Albumin Globulin 04/25/20 04/26/20 04/26/20 21:36 03:16 03:16 WBC RBC Hgb Hct MCV MCH MCHC RDW Plt Count MPV Neut % (Auto) Lymph % (Auto) [place] % (Auto) Eos % (Auto) Baso % (Auto) Neut # (Auto) Lymph # (Auto) [place] # (Auto) Eos # (Auto) Baso # (Auto) Nucleated RBC % (auto) Nucleated RBCs # PT INR Specimen Type Sample Site ABG pH ABG pCO2 ABG pO2 ABG HCO3 ABG Base Excess Lion Test Hematocrit O2 Delivery Device FiO2 Tidal Volume PEEP Picture Hanger ID Sodium 147 H Potassium 3.7 Chloride 103 Carbon Dioxide 18 L Anion Gap 29.7 H BUN 74 H Creatinine 4.4 H GFR Calculation Not Reportable Glucose 144 H POC Glucose 155 Calculated Osmolality 328 H Calcium 8.5 Phosphorus 10.0 H* Magnesium 2.6 H Total Bilirubin 0.4 AST 32 ALT 20 Alkaline Phosphatase 148 H Total Protein 6.5 L Albumin 3.0 L Globulin 3.5 04/26/20 04/26/2020 03:16 07:06 11:23 WBC 9.5 RBC 3.58 L Hgb 9.2 L Hct 32.9 L MCV 91.9 MCH 25.7 L MCHC 28.0 L RDW 16.8 H Plt Count 321 MPV 10.2 Neut % (Auto) 76.8 Lymph % (Auto) 8.1 [place] % (Auto) 12.7 Eos % (Auto) 1.0 Baso % (Auto) 0.6 Neut # (Auto) 7.27 Lymph # (Auto) 0.8 [place] # (Auto) 1.2 H Eos # (Auto) 0.1 Baso # (Auto) 0.1 Nucleated RBC % (auto) 0 Nucleated RBCs # 0.0 PT INR Specimen Type Sample Site ABG pH ABG pCO2 ABG pO2 ABG HCO3 ABG Base Excess Lion Test Hematocrit O2 Delivery Device FiO2 Tidal Volume PEEP Picture Hanger ID Sodium Potassium Chloride Carbon Dioxide Anion Gap BUN Creatinine GFR Calculation Glucose POC Glucose 151 153 Calculated Osmolality Calcium Phosphorus Magnesium Total Bilirubin AST ALT Alkaline Phosphatase Total Protein Albumin Globulin 04/26/20 04/26/20 04/27/20 17:48 21:53 03:40 WBC 8.0 RBC 3.45 L Hgb 8.8 L Hct 31.0 L MCV 89.9 MCH 25.5 L MCHC 28.4 L RDW 16.8 H Plt Count 275 MPV 9.6 Neut % (Auto) 73.8 Lymph % (Auto) 9.3 [place] % (Auto) 12.1 Eos % (Auto) 2.9 Baso % (Auto) 0.9 Neut # (Auto) 5.93 Lymph # (Auto) 0.8 [place] # (Auto) 1.0 H Eos # (Auto) 0.2 Baso # (Auto) 0.1 Nucleated RBC % (auto) 0 Nucleated RBCs # 0.0 PT INR Specimen Type Sample Site ABG pH ABG pCO2 ABG pO2 ABG HCO3 ABG Base Excess Lion Test Hematocrit O2 Delivery Device FiO2 Tidal Volume PEEP Picture Hanger ID Sodium Potassium Chloride Carbon Dioxide Anion Gap BUN Creatinine GFR Calculation Glucose POC Glucose 142 108 Calculated Osmolality Calcium Phosphorus Magnesium Total Bilirubin AST ALT Alkaline Phosphatase Total Protein Albumin Globulin 04/27/20 04/27/20 04/27/20 03:40 03:40 07:43 WBC RBC Hgb Hct MCV MCH MCHC RDW Plt Count MPV Neut % (Auto) Lymph % (Auto) [place] % (Auto) Eos % (Auto) Baso % (Auto) Neut # (Auto) Lymph # (Auto) [place] # (Auto) Eos # (Auto) Baso # (Auto) Nucleated RBC % (auto) Nucleated RBCs # PT 15.50 H INR 1.19 Specimen Type Sample Site ABG pH ABG pCO2 ABG pO2 ABG HCO3 ABG Base Excess Lion Test Hematocrit O2 Delivery Device FiO2 Tidal Volume PEEP Picture Hanger ID Sodium 151 H Potassium 3.5 Chloride 105 Carbon Dioxide 21 L Anion Gap 28.5 H BUN 81 H Creatinine 5.1 H GFR Calculation Not Reportable Glucose 121 H POC Glucose 127 Calculated Osmolality 338 H Calcium 8.5 Phosphorus Magnesium Total Bilirubin 0.4 AST 26 ALT 19 Alkaline Phosphatase 153 H Total Protein 6.7 Albumin 3.3 L Globulin 3.4 Cardiac Studies: Echocardiogram 04/24/20
--- NOTE | 2020-04-27 10:51 | PM.PN ---
Subjective Subjective: Interval history: Feels good, no new issues. Remains minimally interactive on BIPAP. UO dropping down to 1L over lst 24hrs. Medications: Reviewed: Yes Medication Review Details: Current Medications Acetaminophen (Tylenol) 650 mg PO Q6H PRN PRN Reason: Mild/Mod Pain Or Temp >/= 101 Hydrocodone Bitart/Acetaminophen ([place] 5-325 Mg) 1 tab PO Q4H PRN PRN Reason: MODERATE TO SEVERE PAIN Albuterol/Ipratropium (Duoneb) 3 ml INHALATION Q4H.RESPIRATORY [facility] Last Admin: 04/27/20 03:12 Dose: 3 ml Documented by: Amiodarone HCl (Cordarone) 200 mg PO DAILY [facility] Last Admin: 04/26/20 08:10 Dose: Not Given Documented by: Amlodipine Besylate (Norvasc) 10 mg PO DAILY [facility] Last Admin: 04/23/20 09:39 Dose: 10 mg Documented by: Atorvastatin Calcium (Lipitor) 20 mg PO BEDTIME [facility] Last Admin: 04/26/20 21:55 Dose: Not Given Documented by: Bisacodyl (Dulcolax) 10 mg PO DAILY PRN PRN Reason: CONSTIPATION Dextrose (D50w) 25 ml IVP ONCE PRN; Protocol PRN Reason: hypoglycemia protocol Dextrose (D50w) 50 ml IVP PRN PRN; Protocol PRN Reason: hypoglycemia protocol Ferrous Sulfate (Ferrous Sulfate) 325 mg PO BIDWM [facility] Last Admin: 04/26/20 17:39 Dose: Not Given Documented by: Gabapentin (Neurontin) 400 mg PO DAILY [facility] Last Admin: 04/26/20 08:10 Dose: Not Given Documented by: Glucagon (Glucagen) 1 mg IM ONCE PRN; Protocol PRN Reason: Adult Acute Hypoglycemia Prot. Hydralazine HCl (Apresoline) 25 mg PO TID [facility] Last Admin: 04/26/20 21:55 Dose: Not Given Documented by: Dextrose (D5w) 500 mls @ 100 mls/hr IV ONCE PRN; Protocol PRN Reason: Adult Acute Hypoglycemia Prot Propofol (Diprivan) 1,000 mg in 100 mls @ 0 mls/hr IV .Q0M [facility]; Protocol Last Titration: 04/25/20 10:30 Dose: 0 mcg/kg/min, 0 mls/hr Documented by: Furosemide 100 mg/ Sodium (Chloride) 50 mls @ 0 mls/hr IV .Q0M [facility]; Protocol Last Admin: 04/27/20 00:43 Dose: 15 mg/hr, 7.5 mls/hr Documented by: Piperacillin Sod/Tazobactam (Sod 3.375 gm/ Sodium Chloride) 50 mls @ 12.5 mls/hr IV Q12H [facility]; Protocol Last Admin: 04/26/20 21:58 Dose: 12.5 mls/hr Documented by: Vancomycin HCl 1,000 mg/ (Sodium Chloride) 250 mls @ 250 mls/hr IV Q48H [facility]; Protocol Last Admin: 04/26/20 15:16 Dose: 250 mls/hr Documented by: Insulin Aspart (Novolog) 0 unit SUBCUT BEDTIME [facility]; Protocol Last Admin: 04/26/20 21:55 Dose: Not Given Documented by: Insulin Aspart (Novolog) 0 unit SUBCUT TIDWM [facility]; Protocol Last Admin: 04/27/20 08:16 Dose: Not Given Documented by: Isosorbide Mononitrate (Imdur) 60 mg PO QAM [facility] Last Admin: 04/27/20 05:28 Dose: Not Given Documented by: Lorazepam (Ativan) 1 mg IVP Q4H PRN PRN Reason: ANXIETY Last Admin: 04/27/20 05:23 Dose: 1 mg Documented by: Metolazone (Zaroxolyn) 5 mg PO DAILY [facility] Last Admin: 04/26/20 08:11 Dose: Not Given Documented by: Metoprolol Tartrate (Lopressor) 25 mg PO BID [facility] Last Admin: 04/26/20 08:11 Dose: Not Given Documented by: Metoprolol Tartrate (Metoprolol Tartrate) 5 mg IV Q4H PRN PRN Reason: HR greater than 110 Last Admin: 04/27/20 08:54 Dose: 5 mg Documented by: Morphine Sulfate (Morphine) 2 mg IVP Q4H PRN PRN Reason: SEVERE PAIN Last Admin: 04/26/20 15:33 Dose: 2 mg Documented by: Multi-Ingredient Ointment (Eucerin) 1 applic TOPICAL BID [facility] Last Admin: 04/27/20 08:54 Dose: 1 applic Documented by: Naloxone HCl (Narcan) 0.1 mg IVP Q2M PRN PRN Reason: OPIATERV Ondansetron HCl (Zofran) 4 mg IVP Q8H PRN PRN Reason: vomiting, or N/V if npo Pantoprazole Sodium (Protonix) 40 mg IVP Q12H [facility] Last Admin: 04/27/20 08:54 Dose: 40 mg Documented by: Potassium Chloride (Potassium Chloride Oral Liquid) 10 meq PO DAILY [facility] Last Admin: 04/26/20 08:11 Dose: Not Given Documented by: Trazodone HCl (Desyrel) 50 mg PO BEDTIME [facility] Last Admin: 04/26/20 21:55 Dose: Not Given Documented by: Vitals/I&O/Wt Last Vital Signs Temp 98.8 F 04/27/20 07:30 Pulse 118 H 04/27/20 09:38 Resp 20 H 04/27/20 09:00 BP 117/72 04/27/20 08:00 Pulse Ox 97 04/27/20 09:38 04/26/20 04/27/20 04/27/20 22:59 06:59 14:59 Intake Total 50 / 100 100 / 200 Output Total 600 / 840 250 / 1090 Balance -550 / -740 -150 / -890 Weight last 48 hrs Weight 86.455 kg Weight 87.317 kg Physical Exam Narrative: EXAM NARRATIVE: Constitutional: Drowsy, on BIPAP HEENT: Wet mucosa, no jvp, non icteric Lungs: Bilaterally clear coarse, diminished all lung zones CVS: S1 S2, no murmurs Abdo: Soft, BS ok Ext 4: global edema, peripheral perfusion with no cyanosis Neurological: Grossly non-focal Urinary Catheter Management^: [place]: Cath Placed During This Visit: yes Reason for Continuing Indwelling Catheter: Accurate Measurement of Urinary Output in Critically Ill Patients Urinary Catheter Date of Insertion: 04/22/20 Urinary Catheter Time of Insertion: 18:43 Data : 04/27/20 03:40 04/27/20 03:40 A&P Additional A&P Information 1. JED on CKD Consistent with CRS but also element of IVVD as creatinine is drifting up but UO is robust Will plan for dialysis today; 3K, UF 1L, 3hrs and gentle settings today Eval for dialysis tomorrow Strict ins and outs, avoid usual nephrotoxic medication. 2. Lytes - minor non critical aberration - sodium drifting up with diuresis 3. Hypertension. Hemodynamics remain stable without Bp meds or pressors 4. Anemia - serial H/H, low iron sat, s/p venofer 5. AMS - likely toxic encephalopathy - if uremia is playing a role, dialysis will help Thank you for consultation, as always is a pleasure to follow these patients with you Antonino Harden MD Nephrology [phone] Patient seen and examined via telemedicine, with the assistance of the bedside RN Attestations Medical Necessity Statement*: Eval for JED Coding Level of Care Code Acute Band Saw Marker for Maylin Morales
--- NOTE | 2020-04-27 11:14 | PM.PN ---
Subjective Subjective: Interval history: Patient sleeping in bed upon entering the room. Will open his eyes and responds to his name and shake his head yes or no appropriately to questions. Vitals/I&O/Wt Last Vital Signs Temp 98.8 F 04/27/20 07:30 Pulse 108 H 04/27/20 10:30 Resp 28 H 04/27/20 10:30 BP 118/67 04/27/20 10:30 Pulse Ox 95 04/27/20 10:30 04/26/20 04/27/20 04/27/20 22:59 06:59 14:59 Intake Total 50 / 100 100 / 200 Output Total 600 / 840 250 / 1090 150 / 150 Balance -550 / -740 -150 / -890 -150 / -150 Weight last 48 hrs Weight 86.455 kg Weight 87.317 kg Physical Exam Const: COMMON NORMALS: alert GENERAL APPEARANCE: patient mechanically ventilated ORIENTATION/CONSCIOUSNESS: Yes awake OTHER: Awake and alert but lethargic HENMT: COMMON NORMALS: normocephalic and atraumatic HEAD & SCALP: normocephalic and atraumatic Eye: COMMON NORMALS: Equal, round and reactive pupils present PUPIL: Yes Equal, round and reactive pupils present Neck/C-Spine: COMMON NORMALS: supple GENERAL: Yes normal visual inspection Resp: EFFORT & INSPECTION: Yes tachypneic, Yes labored and Yes uses accessory muscles AUSCULTATION: crackles, no rhonchi and wheezes OTHER: Improvement in crackles bilaterally, BiPAP in place Cardio: COMMON NORMALS: regular rhythm RATE: bradycardic RHYTHM: regular rhythm GI: COMMON NORMALS: Soft to palpation and non-tender INSPECTION: No abdominal distension AUSCULTATION: Yes normoactive bowel sounds PALPATION: Yes Soft to palpation Extremity: COMMON NORMALS: no calf tenderness OTHER: 1+ pitting edema in the lower extremities bilaterally Neuro: COMMON NORMALS: CN's II-XII intact bilaterally, moves all extremities and no focal motor deficits SENSORIUM/ORIENTATION: Yes alert SPEECH: speech normal OTHER: remains sleepy, but answers yes and no questions appropriately Psych: COMMON NORMALS: mental status grossly normal and cooperative Skin: OTHER: Dry skin on the lower extremities bilaterally Urinary Catheter Management^: Jaquez: Cath Placed During This Visit: yes Reason for Continuing Indwelling Catheter: Accurate Measurement of Urinary Output in Critically Ill Patients Urinary Catheter Date of Insertion: 04/22/20 Urinary Catheter Time of Insertion: 18:43 Data : 04/27/20 03:40 04/27/20 03:40 A&P Assessment and plan (1) Acute on chronic diastolic (congestive) heart failure: Extubated on 04/25/20 Wean off BiPAP as tolerated, on 6L at time of exam Cardiology consult appreciated Hold lasix drip today and plan for dialysis catheter Patient continues to have increasing BUN and creatinine, discussion with patient's son today along with discussion with patient and in agreement to dialysis. Called to Dr. Garcia for dialysis catheter placement. Status: Acute (2) Chronic anemia: Acute on chronic anemia also with iron deficiency Fecal occult blood positive this admission, no evidence of any active bleeding at this time, continue on PPI twice daily Consult to general surgery for dialysis catheter placement, will discuss once patient is medically stable may require endoscopy Status: Acute (3) Chronic kidney disease: Chronic kidney disease increasing BUN and creatinine Appreciate nephrology consultation BUN and creatinine continue to worsen. Dr Garcia consulted for dialysis cath placement Status: Chronic (4) Ventricular tachycardia: Prior history of ventricular tachycardia, continue on amiodarone 200 mg daily, restart metoprolol 25 mg twice daily today Status: Resolved (5) High risk medication use: Status: Acute (6) Edema, peripheral: Severe peripheral lower extremity edema, improved Status: Acute (7) Dyslipidemia: Continue home statin Status: Acute (8) Hypertension: BP improved, restart metoprolol IV due to inability to take PO Status: Acute Qualifiers: Hypertension type: essential hypertension Qualified Code(s): I10 - Essential (primary) hypertension (9) Dementia: Status: Chronic Qualifiers: Dementia type: Lewy body dementia Dementia behavioral disturbance: without behavioral disturbance Qualified Code(s): G31.83 - Dementia with Lewy bodies; F02.80 - Dementia in other diseases classified elsewhere without behavioral disturbance (10) Diabetes mellitus: Lantus held Sliding scale as needed Glipizide on hold Status: Chronic Qualifiers: Diabetes mellitus type: type 2 Diabetes mellitus correction insulin use: without long term care pharmacist use Diabetes mellitus complication status: with hyperglycemia Qualified Code(s): E11.65 - Type 2 diabetes mellitus with hyperglycemia (11) Atrial fibrillation: Paroxysmal atrial fibrillation IV metoprolol scheduled due to inability to take p.o. Cardiology consultation appreciated Off of anticoagulation due to anemia Status: Acute Additional A&P Information Acute respiratory failure: intubated on 04/22/20, RTAT, extubated on 04/25/2020, on 6L at time of exam Difficult jaquez placement: Jaquez placed by Dr. Del Real, appreciate consultation. pneumonia: started on empiric antibiotics due to respiratory failure, preliminary sputum culture showing mixed upper respiratory ray, will continue to monitor closely continue vanc and zosyn DVT prophylaxis: SCDs, no pharmacologic prophylaxis due to anemia Diet: NPO, ST eval GI ppx: PPI CODE STATUS: Full code Attestations Medical Necessity Statement*: Patient requires hospitalization due to acute respiratory failure secondary to acute CHF exacerbation. Coding Level of Care Code Acute Materials Management Manager for g Fwd Diagnoses Acute on chronic diastolic (congestive) heart failure I50.33 Chronic anemia D64.9 Chronic kidney disease N18.9 Ventricular tachycardia I47.2 High risk medication use Z79.899 Edema, peripheral R60.9 Dyslipidemia E78.5 Hypertension I10 Hypertension type: essential hypertension Dementia G31.83; F02.80 Dementia type: Lewy body dementia Dementia behavioral disturbance: without behavioral disturbance Diabetes mellitus E11.65 Diabetes mellitus type: type 2 Diabetes mellitus long term care pharmacist insulin use: without long term care pharmacist use Diabetes mellitus complication status: with hyperglycemia Atrial fibrillation I48.91
--- NOTE | 2020-04-27 11:23 | PC.SLP ---
Per nursing request, patient will not be seen by speech therapy today.
[2020-04-27 11:36] LABS: Glucose Point of Care 150 mg/dL (70-110)
[2020-04-27 11:58] LABS: Procalcitonin 0.35 ng/mL (0-0.5)
--- NOTE | 2020-04-27 12:04 | SC_ITS ---
WS: [id number] C-arm fluoroscopy right chest for dialysis catheter placement, 04/27/2020 Clinical Data: HemoSplit long-term dialysis catheter into the right interna Comparison: Portable chest, 04/27/2020 Findings: A large bore dialysis catheter has been inserted into the right internal jugular vein and it ends in the superior vena cava. SC/C-arm FL for CVA [id number] Impression: Insertion of dialysis catheter.
[2020-04-27] MEDS: heparin, porcine 1,000 unit/mL INJ 10 mL 10000 UNIT HE (14:05)
--- NOTE | 2020-04-27 14:12 | P.OP_ITS ---
Operative Report Date of procedure: April 27, 2020 Pre-op Diagnosis: Acute kidney injury on top of chronic kidney disease. Post-op diagnosis: same Procedure Done: Placement of 16 Fr. 28 cm HemoSplit long-term dialysis catheter into the right internal jugular vein using intraoperative ultrasound guidance and intraoperative fluoroscopy. Pathology: none sent Surgeon: Ryne Garcia Anesthesia: MAC Estimated blood loss (mL): 10 Complications: None. Condition: stable Disposition: ICU Procedure: The patient was brought to the operating room and was placed in a supine position on the operating room table. A monitored anesthetic was induced. The right side of the neck and chest were prepped and draped in a sterile fashion. Intraoperative ultrasound was used to find the right internal jugular vein as evidenced by its size and compressibility. 1% lidocaine was used for local anesthetic on the neck and the right internal jugular vein was accessed with a needle and syringe on the first pass as evidenced by the return of dark nonpulsatile blood. The guidewire was easily passed down the needle and the needle was removed. The C-arm was positioned and showed the guidewire extending down the vena cava. A 16 Japanese 28 cm HemoSplit long-term dialysis catheter was then placed on the right side of the chest and measured so that the subcutaneous cuff would be an appropriate location in the subcutaneous tunnel. A combination of 1% lidocaine and 0.5% bupivacaine with 1-200,000 parts epinephrine was used to anesthetize a subcutaneous tract from the right chest wall to the right side of the neck over the top of the clavicle. A small incision was made on the chest wall at the proposed exit point and a small incision was also made adjacent to the guidewire on the right side of the neck. The HemoSplit catheter was then tunneled from the small incision on the chest to the small incision on the right side of the neck using the passer provided in the kit. Small to medium sized dilators were then placed over the guidewire to dilate the skin opening and the subcutaneous tissue. The introducer and sheath were then passed over the guidewire easily into the right internal jugular vein. The guidewire and introducer were removed and the arms of the HemoSplit dialysis catheter were easily passed down the sheath which was then torn away. The C-arm was once again positioned and showed good placement of the dialysis catheter tip in the vena cava. Both ports were aspirated and flushed with hep flush solution. Both ports showed excellent flow and were then left filled with concentrated hep flush solution. The catheter was sewn in place at the skin on the chest with some sutures of 3-0 Prolene. The small incision on the right side of the neck was closed using some interrupted inverted sutures of 4-0 Vicryl. The incision on the neck was covered with some Dermabond. A sterile dressing was placed over the HemoSplit exit site on the chest. The patient was taken back to the intensive care unit postoperatively in stable condition. INTRAOPERATIVE FLUOROSCOPY interpretation: FINDINGS: Intraoperative fluoroscopic images of a hemodialysis catheter placement were reviewed. An initial image reveals a guidewire entering the right internal jugular vein and extending down the vena cava. Subsequent images reveal a dialysis catheter on that side of the chest with its tubing tip in good location in the superior vena cava. No obvious pneumothorax is identified.
--- NOTE | 2020-04-27 14:30 | PM.PACU ---
PACU note Post-Anesthesia Exam: awake, somnolent, arousable and vital signs stable Disposition: back to floor
[2020-04-27 16:06] LABS: Hepatitis B Surface Antigen Non-Reactive (Nonreactive)
[2020-04-27 17:18] LABS: Glucose Point of Care 143 mg/dL (70-110)
[2020-04-27 20:06] LABS: Glucose Point of Care 130 mg/dL (70-110)
--- NOTE | 2020-04-27 21:09 | PC.NURSE ---
During Nursing Shit Assessment, Pt HR recorded to be 120-140's. Nurse continued assessing pt HR, with no significant decrease noted. Metoprolol 5mg IVP given based on v/s. Continuing to monitor.
--- NOTE | 2020-04-27 21:33 | PC.NURSE ---
Patient still considerably sedated. Not alert enough at this time to receive anything PO. Evening PO medications held.
--- NOTE | 2020-04-27 21:48 | PC.NURSE ---
Patient's HR continues to range from high 120-140's after admin of Metoprolol IVP. MD Kurtis: physician pumping station engineer notified. V/O for Cardizem 15mg IVP ONCE given.
[2020-04-27] MEDS: morphine 4 mg/mL SDV 1 mL 2 MG IVP (22:49)
--- NOTE | 2020-04-27 22:55 | PC.NURSE ---
Patient verbalized extreme pain on sacrum area. Pt was turned and repositioned again, however, this did not aid in any relief. Pt was thrashing in bed and unable to rest. Pain meds given IVP to aid in decreased reported pain. Patient resting more comfortably after pain meds given. Room visible from Nurses Station.
[2020-04-28] VITALS (86 sets, daily range): BP systolic 84–137; BP diastolic 55–89; PULSE 71–129; RESP 14–31; TEMP 36.6–37.8; O2SAT 87–100
[2020-04-28] MEDS: metoprolol tartrate 1 mg/1 mL SDV 5 mL 5 MG IV ×3 (00:18→13:43)
[2020-04-28] MEDS: LORazepam 2 mg/mL INJ 1 mL 1 MG IVP ×4 (00:34→23:43)
--- NOTE | 2020-04-28 00:44 | PC.NURSE ---
Patient increasingly more restless and agitated. Patient attempted to rip out IV's and pull at Whitley Catheter. Patient repositioned and educated on need for both line placements. Patient continued to try and pull at IV lines after education given. Lines reinforced with kerlex and concealed. Ativan IVP given in attempts to decrease agitation.
[2020-04-28 03:49] LABS: Basophils # 0.1 10^3/uL (0.0-0.1); Basophils % 0.9 %; Eosinophils # 0.2 10^3/uL (0.0-0.8); Eosinophils % 2.8 %; Hematocrit 30.8 % (42.0-52.0); Hemoglobin 8.7 g/dL (11.7-16.6); Lymphocytes # 0.9 10^3/uL (0.8-4.8); Lymphocytes % 10.3 %; Mean Corpuscular HGB Conc 28.2 g/dL (30.0-36.0); Mean Corpuscular Hemoglobin 25.8 pg (28.0-34.0); Mean Corpuscular Volume 91.4 fL (80-94); Mean Platelet Volume 9.5 fL (7.4-10.4); Monocytes # 1.1 10^3/uL (0.2-0.9); Monocytes % 12.7 %; Neutrophils # 6.14 10^3/uL (1.8-7.7); Nucleated Red Blood Cells % 0 %; Platelet Count 258 10^3/cmm (130-400); Red Blood Count 3.37 10^6/uL (4.1-5.3); Red Cell Distribution Width 16.6 % (12.1-15.1); White Blood Count 8.5 10^3/uL (4.0-10.0)
[2020-04-28 04:22] LABS: Alanine Aminotransferase 19 U/L (0-41); Albumin Level 3.2 g/dL (3.5-5.2); Alkaline Phosphatase 173 IU/L (40-130); Anion Gap 20.6 (5-19); Aspartate Amino Transferase 23 U/L (0-40); Blood Urea Nitrogen 50 mg/dL (8-23); Calcium 8.2 mg/dL (8.5-10.5); Carbon Dioxide 25 mmol/L (22-29); Chloride 101 mmol/L (98-107); Globulin 3.4 g/dL (1.3-4.6); Glucose 100 mg/dL (65-115); Osmolality Calculated 309 mOsm/kg (285-295); Potassium 3.6 mmol/L (3.5-5.1); Sodium 143 mmol/L (136-145); Total Bilirubin 0.4 mg/dL (0.15-1.2); Total Protein 6.6 g/dL (6.6-8.7)
[2020-04-28] MEDS: ipratropium-albuterol 3 mL Neb INHALATION ×5 (05:12→19:51)
--- NOTE | 2020-04-28 07:05 | PC.NURSE ---
Shift Summary: Pt continues to exhibit agitation and frequently tries to remove jaquez, IVs, and leads. Ativan given twice overnight. Morphine given once to try and decrease pain levels. Axillary temps ranging from 99-100. Cool washcloths applied to forehead, axilla, and groin area. Pt was kept on a strict turning schedule to try and keep patient off of sacrum and back. Noted DTI to sacral area, as well as to bridge of nose. Patient was able to verbalize pain once yesterday evening, but has otherwise been non-verbal and confused. HR has continued to stay above 120's despite Metoprolol, and Cardizem IVP admins. PO medications held based on patient's inability to swallow. Report and handoff given to oncoming dayshift RN.
[2020-04-28 07:30] LABS: Glucose Point of Care 111 mg/dL (70-110)
[2020-04-28] MEDS: pantoprazole 40 mg SDV IVP ×2 (08:15→21:48)
--- NOTE | 2020-04-28 08:20 | ANE.PACU2 ---
Inpatient post-anesthesia follow up: Airway intact: Yes Vital signs: Temperature 98.0 F Pulse Rate [Monito r] 79 Pulse Rate 121 Respiratory Rate 16 Blood Pressure [Ri ght Arm] 136/72 Blood Pressure 117/74 Pulse Oximetry 97 Oxygen Delivery Me thod [ Oxymask Current Rate & Del zuhair] Oxygen Delivery Me thod BiPAP Oxygen Flow Rate [ Current Rate 8 & Delivery] Oxygen Flow Rate 100 Fraction of Inspir ed Oxygen 40 Hydration adequate: Yes Nausea and vomiting: No Pain level: 1 Mental status: Baseline Additional Comments: still on biPAP
[2020-04-28] MEDS: eucerin cream 113 gm Jar 1 APPLIC TOPICAL ×2 (08:25→17:20)
--- NOTE | 2020-04-28 08:40 | PM.PN ---
Subjective Subjective: Interval history: Received dialysis yesterday, tolerating procedure well, pulse actually came down with volume removal. The patient is on a BiPAP. He is on FiO2 35%. Mental status is still very poor. Appears to be sleepy most of the times. Telemetry intermittent atrial fibrillation with rapid ventricular rate. Medications: Reviewed: Yes Medication Review Details: Current Medications Acetaminophen (Tylenol) 650 mg PO Q6H PRN PRN Reason: Mild/Mod Pain Or Temp >/= 101 Hydrocodone Bitart/Acetaminophen (Redfield 5-325 Mg) 1 tab PO Q4H PRN PRN Reason: MODERATE TO SEVERE PAIN Albuterol/Ipratropium (Duoneb) 3 ml INHALATION Q4H.RESPIRATORY [facility] Last Admin: 04/27/20 03:12 Dose: 3 ml Documented by: Amiodarone HCl (Cordarone) 200 mg PO DAILY [facility] Last Admin: 04/26/20 08:10 Dose: Not Given Documented by: Amlodipine Besylate (Norvasc) 10 mg PO DAILY [facility] Last Admin: 04/23/20 09:39 Dose: 10 mg Documented by: Atorvastatin Calcium (Lipitor) 20 mg PO BEDTIME [facility] Last Admin: 04/26/20 21:55 Dose: Not Given Documented by: Bisacodyl (Dulcolax) 10 mg PO DAILY PRN PRN Reason: CONSTIPATION Dextrose (D50w) 25 ml IVP ONCE PRN; Protocol PRN Reason: hypoglycemia protocol Dextrose (D50w) 50 ml IVP PRN PRN; Protocol PRN Reason: hypoglycemia protocol Ferrous Sulfate (Ferrous Sulfate) 325 mg PO BIDWM [facility] Last Admin: 04/26/20 17:39 Dose: Not Given Documented by: Gabapentin (Neurontin) 400 mg PO DAILY [facility] Last Admin: 04/26/20 08:10 Dose: Not Given Documented by: Glucagon (Glucagen) 1 mg IM ONCE PRN; Protocol PRN Reason: Adult Acute Hypoglycemia Prot. Hydralazine HCl (Apresoline) 25 mg PO TID [facility] Last Admin: 04/26/20 21:55 Dose: Not Given Documented by: Dextrose (D5w) 500 mls @ 100 mls/hr IV ONCE PRN; Protocol PRN Reason: Adult Acute Hypoglycemia Prot Propofol (Diprivan) 1,000 mg in 100 mls @ 0 mls/hr IV .Q0M [facility]; Protocol Last Titration: 04/25/20 10:30 Dose: 0 mcg/kg/min, 0 mls/hr Documented by: Furosemide 100 mg/ Sodium (Chloride) 50 mls @ 0 mls/hr IV .Q0M [facility]; Protocol Last Admin: 04/27/20 00:43 Dose: 15 mg/hr, 7.5 mls/hr Documented by: Piperacillin Sod/Tazobactam (Sod 3.375 gm/ Sodium Chloride) 50 mls @ 12.5 mls/hr IV Q12H [facility]; Protocol Last Admin: 04/26/20 21:58 Dose: 12.5 mls/hr Documented by: Vancomycin HCl 1,000 mg/ (Sodium Chloride) 250 mls @ 250 mls/hr IV Q48H [facility]; Protocol Last Admin: 04/26/20 15:16 Dose: 250 mls/hr Documented by: Insulin Aspart (Novolog) 0 unit SUBCUT BEDTIME [facility]; Protocol Last Admin: 04/26/20 21:55 Dose: Not Given Documented by: Insulin Aspart (Novolog) 0 unit SUBCUT TIDWM [facility]; Protocol Last Admin: 04/27/20 08:16 Dose: Not Given Documented by: Isosorbide Mononitrate (Imdur) 60 mg PO QAM [facility] Last Admin: 04/27/20 05:28 Dose: Not Given Documented by: Lorazepam (Ativan) 1 mg IVP Q4H PRN PRN Reason: ANXIETY Last Admin: 04/27/20 05:23 Dose: 1 mg Documented by: Metolazone (Zaroxolyn) 5 mg PO DAILY [facility] Last Admin: 04/26/20 08:11 Dose: Not Given Documented by: Metoprolol Tartrate (Lopressor) 25 mg PO BID [facility] Last Admin: 04/26/20 08:11 Dose: Not Given Documented by: Metoprolol Tartrate (Metoprolol Tartrate) 5 mg IV Q4H PRN PRN Reason: HR greater than 110 Last Admin: 04/27/20 08:54 Dose: 5 mg Documented by: Morphine Sulfate (Morphine) 2 mg IVP Q4H PRN PRN Reason: SEVERE PAIN Last Admin: 04/26/20 15:33 Dose: 2 mg Documented by: Multi-Ingredient Ointment (Eucerin) 1 applic TOPICAL BID [facility] Last Admin: 04/27/20 08:54 Dose: 1 applic Documented by: Naloxone HCl (Narcan) 0.1 mg IVP Q2M PRN PRN Reason: OPIATERV Ondansetron HCl (Zofran) 4 mg IVP Q8H PRN PRN Reason: vomiting, or N/V if npo Pantoprazole Sodium (Protonix) 40 mg IVP Q12H [facility] Last Admin: 04/27/20 08:54 Dose: 40 mg Documented by: Potassium Chloride (Potassium Chloride Oral Liquid) 10 meq PO DAILY [facility] Last Admin: 04/26/20 08:11 Dose: Not Given Documented by: Trazodone HCl (Desyrel) 50 mg PO BEDTIME [facility] Last Admin: 04/26/20 21:55 Dose: Not Given Documented by: Vitals/I&O/Wt Last Vital Signs Temp 98.0 F 04/28/20 07:55 Pulse 121 H 04/28/20 08:06 Resp 16 04/28/20 08:06 BP 117/74 04/28/20 06:00 Pulse Ox 97 04/28/20 08:06 04/27/20 04/28/20 04/28/20 22:59 06:59 14:59 Intake Total 0 / 150 50 / 200 Output Total 150 / 455 150 / 605 Balance -150 / -305 -100 / -405 Weight last 48 hrs Weight 84.34 kg Weight 86.455 kg Physical Exam Narrative: EXAM NARRATIVE: Constitutional: Drowsy, on BIPAP HEENT: Wet mucosa, no jvp, non icteric Lungs: Bilaterally clear coarse, diminished all lung zones CVS: S1 S2, no murmurs Abdo: Soft, BS ok Ext 4: global edema, peripheral perfusion with no cyanosis Neurological: Grossly non-focal Urinary Catheter Management^: Whitley: Cath Placed During This Visit: yes Reason for Continuing Indwelling Catheter: Accurate Measurement of Urinary Output in Critically Ill Patients Urinary Catheter Date of Insertion: 04/22/20 Urinary Catheter Time of Insertion: 18:43 Data : 04/28/20 03:10 04/28/20 03:10 Micro: Microbiology 04/23/20 06:44 Blood Culture - Final Blood NO GROWTH AFTER 5 DAYS A&P Additional A&P Information 1. JED on CKD Consistent with CRS Dialyazed yesterday, plan for another session today both to decrease uremic milieu and volume extraction Will plan for dialysis today; 3K, UF 2L, 3hrs Eval for dialysis tomorrow and over the weekend Strict ins and outs, avoid usual nephrotoxic medication. 2. Lytes - well balanced after dialysis 3. Hypertension, Afib Hemodynamics remain stable without Bp meds or pressors; iv metoprolol for rate control 4. Anemia - serial H/H, low iron sat, s/p venofer 5. AMS - likely toxic encephalopathy - if uremia is playing a role, dialysis will help Thank you for consultation, as always is a pleasure to follow these patients with you Antonino Harden MD Nephrology [phone] Patient seen and examined via telemedicine, with the assistance of the bedside RN Attestations Medical Necessity Statement*: eval for renal failure Coding Level of Care Code Acute Director Of Music Therapy for Maylin Morales
[2020-04-28 11:28] LABS: Glucose Point of Care 106 mg/dL (70-110)
--- NOTE | 2020-04-28 11:32 | PC.OT ---
OT NOTE: OT EVALUATION ATTEMPTED AGAIN TODAY. PATIENT IS CURRENTLY RECEIVING DIALYSIS. NURSE REPORTS THAT THE PATIENT IS OCCASIONALLY OPENING HIS EYES BUT IS NOT FOLLOWING ANY DIRECTIONS AT THIS TIME. WILL HOLD EVALUATION FOR TODAY.
--- NOTE | 2020-04-28 11:52 | P.PN_ITS ---
Subjective Subjective: Interval history: Patient on BiPAP at time of exam this morning. Patient tries to open his eyes at time of exam but remains drowsy. Nurse reported the patient required Ativan this morning due to some sundowning. Vitals/I&O/Wt Last Vital Signs Temp 98.0 F 04/28/20 07:55 Pulse 112 H 04/28/20 11:16 Resp 16 04/28/20 11:15 BP 103/71 04/28/20 10:30 Pulse Ox 98 04/28/20 11:16 04/27/20 04/28/20 04/28/20 22:59 06:59 14:59 Intake Total 0 / 150 50 / 200 Output Total 150 / 455 150 / 605 Balance -150 / -305 -100 / -405 Weight last 48 hrs Weight 84.34 kg Weight 86.455 kg Physical Exam Const: OTHER: Lethargic HENMT: COMMON NORMALS: normocephalic and atraumatic HEAD & SCALP: normocephalic and atraumatic Neck/C-Spine: COMMON NORMALS: supple GENERAL: Yes normal visual inspection Resp: EFFORT & INSPECTION: Yes tachypneic and Yes uses accessory muscles AUSCULTATION: crackles, no rhonchi and wheezes OTHER: BiPAP in place, diminished breath sounds bilaterally, no appreciable wheezing Cardio: OTHER: Tachycardic, no appreciable murmur GI: COMMON NORMALS: Soft to palpation and non-tender INSPECTION: No abdominal distension AUSCULTATION: Yes normoactive bowel sounds PALPATION: Yes Soft to palpation Extremity: COMMON NORMALS: no calf tenderness OTHER: Non- pitting edema in the lower extremities bilaterally Neuro: COMMON NORMALS: CN's II-XII intact bilaterally, moves all extremities and no focal motor deficits SPEECH: speech normal OTHER: Lethargic Skin: OTHER: Dry skin on the lower extremities bilaterally Urinary Catheter Management^: Jaquez: Cath Placed During This Visit: yes Reason for Continuing Indwelling Catheter: Accurate Measurement of Urinary Output in Critically Ill Patients Urinary Catheter Date of Insertion: 04/22/20 Urinary Catheter Time of Insertion: 18:43 Data : 04/28/20 03:10 04/28/20 03:10 Micro: Microbiology 04/23/20 06:44 Blood Culture - Final Blood NO GROWTH AFTER 5 DAYS A&P Assessment and plan (1) Acute on chronic diastolic (congestive) heart failure: Extubated on 04/25/20 Patient back on BiPAP this morning at time of exam, oxygen saturations remained in the upper 90s, will transition to nasal cannula or high flow nasal cannula today after dialysis Cardiology consult appreciated Appreciate nephrology and surgical consultation. Patient remains on dialysis with repeat dialysis for today Status: Acute (2) Chronic anemia: Acute on chronic anemia also with iron deficiency Fecal occult blood positive this admission, no evidence of any active bleeding at this time, continue on PPI twice daily Consider further outpatient work-up once cardiopulmonary status improved Status: Acute (3) Chronic kidney disease: Chronic kidney disease increasing BUN and creatinine Appreciate nephrology consultation Patient had dialysis catheter placed on 04/27/2020, had dialysis last night and another session of dialysis today. Status: Chronic (4) Ventricular tachycardia: Prior history of ventricular tachycardia, on amiodarone 200 mg daily, metoprolol 25mg, however unable to take due to inability to swallow medications Continue IV metoprolol PRN, may require esmolol drip Status: Resolved (5) High risk medication use: Status: Acute (6) Edema, peripheral: improved Status: Acute (7) Dyslipidemia: Continue home statin Status: Acute (8) Hypertension: soft BP today Status: Acute Qualifiers: Hypertension type: essential hypertension Qualified Code(s): I10 - Essential (primary) hypertension (9) Dementia: With some sundowning at night, required Ativan x1 overnight Status: Chronic Qualifiers: Dementia type: Lewy body dementia Dementia behavioral disturbance: without behavioral disturbance Qualified Code(s): G31.83 - Dementia with Lewy bodies; F02.80 - Dementia in other diseases classified elsewhere without behavioral disturbance (10) Diabetes mellitus: Lantus held Sliding scale as needed Glipizide on hold Status: Chronic Qualifiers: Diabetes mellitus type: type 2 Diabetes mellitus retirement insulin use: without long term care administrator use Diabetes mellitus complication status: with hyperglycemia Qualified Code(s): E11.65 - Type 2 diabetes mellitus with hyperglycemia (11) Atrial fibrillation: Paroxysmal atrial fibrillation IV metoprolol scheduled due to inability to take p.o. Cardiology consultation appreciated Off of anticoagulation due to anemia Status: Acute Additional A&P Information Acute respiratory failure: intubated on 04/22/20, RTAT, extubated on 04/25/2020, continue to wean oxygen as tolerated Difficult jaquez placement: Jaquez placed by Dr. Del Real, appreciate c onsultation. pneumonia: On vancomycin and Zosyn due to concern for pneumonia, however sputum culture showing mixed ray of the upper respiratory tract. Will work to de- escalate antibiotic coverage Positive blood culture: Showing coag negative staph, likely contaminant as only in 1 bottle, repeat blood cultures show no growth to date. Lewy body dementia DVT prophylaxis: SCDs, no pharmacologic prophylaxis due to anemia Diet: NPO, ST eval GI ppx: PPI CODE STATUS: Full code Discussion with patient's son today, Joaquin, regarding plan of care. Discussed that patient will likely require care home facility placement, he stated that his father has not wanted this in the past but he understands the reasoning, he stated that he will discuss with his family further today. Also discussed the possibility of long-term acute care facility. Attestations Medical Necessity Statement*: Patient requires further hospitalization due to acute respiratory failure secondary to acute on chronic CHF exacerbation. 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 [facility] Fwd Diagnoses Acute on chronic diastolic (congestive) heart failure I50.33 Chronic anemia D64.9 Chronic kidney disease N18.9 Ventricular tachycardia I47.2 High risk medication use Z79.899 Edema, peripheral R60.9 Dyslipidemia E78.5 Hypertension I10 Hypertension type: essential hypertension Dementia G31.83; F02.80 Dementia type: Lewy body dementia Dementia behavioral disturbance: without behavioral disturbance Diabetes mellitus E11.65 Diabetes mellitus type: type 2 Diabetes mellitus retirement insulin use: without long term care administrator use Diabetes mellitus complication status: with hyperglycemia Atrial fibrillation I48.91
[2020-04-28] MEDS: piperacillin-tazobactam 3.375 GM in sodium chloride 0.9% (plus) 50 ML IV (13:43)
--- NOTE | 2020-04-28 13:52 | P.PN_ITS ---
Subjective Subjective: Interval history: Patient continues to be on BiPAP. Poorly responding to verbal commands. Had a hemodialysis twice. Has been having episodes of atrial fibrillation with rapid ventricular rate. Patient is not able to take medications orally. Medications: Reviewed: Yes Medication Review Details: Current Medications Acetaminophen (Tylenol) 650 mg PO Q6H PRN PRN Reason: Mild/Mod Pain Or Temp >/= 101 Hydrocodone Bitart/Acetaminophen ([place] 5-325 Mg) 1 tab PO Q4H PRN PRN Reason: MODERATE TO SEVERE PAIN Albuterol/Ipratropium (Duoneb) 3 ml INHALATION Q4H.RESPIRATORY DEBBIE Last Admin: 04/28/20 11:15 Dose: 3 ml Documented by: Amiodarone HCl (Cordarone) 200 mg PO DAILY [facility] Last Admin: 04/28/20 08:58 Dose: Not Given Documented by: Amlodipine Besylate (Norvasc) 10 mg PO DAILY [facility] Last Admin: 04/23/20 09:39 Dose: 10 mg Documented by: Atorvastatin Calcium (Lipitor) 20 mg PO BEDTIME DEBBIE Last Admin: 04/27/20 20:33 Dose: Not Given Documented by: Bisacodyl (Dulcolax) 10 mg PO DAILY PRN PRN Reason: CONSTIPATION Dextrose (D50w) 25 ml IVP ONCE PRN; Protocol PRN Reason: hypoglycemia protocol Dextrose (D50w) 50 ml IVP PRN PRN; Protocol PRN Reason: hypoglycemia protocol Ferrous Sulfate (Ferrous Sulfate) 325 mg PO BIDWM [facility] Last Admin: 04/28/20 07:57 Dose: Not Given Documented by: Gabapentin (Neurontin) 400 mg PO DAILY [facility] Last Admin: 04/28/20 08:58 Dose: Not Given Documented by: Glucagon (Glucagen) 1 mg IM ONCE PRN; Protocol PRN Reason: Adult Acute Hypoglycemia Prot. Hydralazine HCl (Apresoline) 25 mg PO TID [facility] Last Admin: 04/28/20 08:58 Dose: Not Given Documented by: Dextrose (D5w) 500 mls @ 100 mls/hr IV ONCE PRN; Protocol PRN Reason: Adult Acute Hypoglycemia Prot Propofol (Diprivan) 1,000 mg in 100 mls @ 0 mls/hr IV .Q0M [facility]; Protocol Last Titration: 04/25/20 10:30 Dose: 0 mcg/kg/min, 0 mls/hr Documented by: Furosemide 100 mg/ Sodium (Chloride) 50 mls @ 0 mls/hr IV .Q0M [facility]; Protocol Last Admin: 04/27/20 00:43 Dose: 15 mg/hr, 7.5 mls/hr Documented by: Piperacillin Sod/Tazobactam (Sod 3.375 gm/ Sodium Chloride) 50 mls @ 12.5 mls/hr IV Q12H [facility]; Protocol Last Admin: 04/28/20 13:43 Dose: 12.5 mls/hr Documented by: Vancomycin HCl 1,000 mg/ (Sodium Chloride) 250 mls @ 250 mls/hr IV Q48H [facility]; Protocol Last Infusion: 04/26/20 16:16 Dose: Infused Documented by: Insulin Aspart (Novolog) 0 unit SUBCUT BEDTIME [facility]; Protocol Last Admin: 04/27/20 20:03 Dose: Not Given Documented by: Insulin Aspart (Novolog) 0 unit SUBCUT TIDWM [facility]; Protocol Last Admin: 04/28/20 12:05 Dose: Not Given Documented by: Isosorbide Mononitrate (Imdur) 60 mg PO QAM [facility] Last Admin: 04/28/20 06:22 Dose: Not Given Documented by: Lorazepam (Ativan) 1 mg IVP Q4H PRN PRN Reason: ANXIETY Last Admin: 04/28/20 04:49 Dose: 1 mg Documented by: Metolazone (Zaroxolyn) 5 mg PO DAILY [facility] Last Admin: 04/28/20 08:58 Dose: Not Given Documented by: Metoprolol Tartrate (Lopressor) 25 mg PO BID [facility] Last Admin: 04/26/20 08:11 Dose: Not Given Documented by: Metoprolol Tartrate (Metoprolol Tartrate) 5 mg IV Q4H PRN PRN Reason: HR greater than 110 Last Admin: 04/28/20 13:43 Dose: 5 mg Documented by: Morphine Sulfate (Morphine) 2 mg IVP Q4H PRN PRN Reason: SEVERE PAIN Last Admin: 04/27/20 22:49 Dose: 2 mg Documented by: Multi-Ingredient Ointment (Eucerin) 1 applic TOPICAL BID [facility] Last Admin: 04/28/20 08:25 Dose: 1 applic Documented by: Naloxone HCl (Narcan) 0.1 mg IVP Q2M PRN PRN Reason: OPIATERV Ondansetron HCl (Zofran) 4 mg IVP Q8H PRN PRN Reason: vomiting, or N/V if npo Pantoprazole Sodium (Protonix) 40 mg IVP Q12H [facility] Last Admin: 04/28/20 08:15 Dose: 40 mg Documented by: Potassium Chloride (Potassium Chloride Oral Liquid) 10 meq PO DAILY [facility] Last Admin: 04/28/20 08:59 Dose: Not Given Documented by: Trazodone HCl (Desyrel) 50 mg PO BEDTIME [facility] Last Admin: 04/27/20 20:34 Dose: Not Given Documented by: Vitals/I&O/Wt Last Vital Signs Temp 97.8 F 04/28/20 11:56 Pulse 127 H 04/28/20 13:49 Resp 22 H 04/28/20 12:00 BP 111/73 04/28/20 12:00 Pulse Ox 96 04/28/20 13:49 04/27/20 04/28/20 04/28/20 22:59 06:59 14:59 Intake Total 0 / 150 50 / 200 Output Total 150 / 455 150 / 605 Balance -150 / -305 -100 / -405 Weight last 48 hrs Weight 185 lb 15 oz Weight 190 lb 9.6 oz Physical Exam Narrative: EXAM NARRATIVE: GENERAL: The patient is currently extubated. Appears to be sleepy HEENT: No significant pallor, icterus or lymphadenopathy.Oral cavity: There are no mucous membrane lesions. NECK: Trachea appears to be central. No masses noted. No JVD or thyromegaly appreciated. RESPIRATORY: Chest is symmetrical. No intercostals muscle retraction or any accessory muscle activation. There is no chest wall tenderness. Breath sounds are heard bilaterally. No rales or rhonchi heard. No evidence of any consolidation. Scattered crackles in the bases. Breath sounds are diminished in the bases BREASTS: Deferred. HEART: The heart sounds are normal. No S3 or S4. Ejection systolic murmur grade 3/6 at the base of the heart.. No pericardial rub ABDOMEN: No vessel pulsations or distention. No tenderness. No organomegaly appreciated. Bowel sounds are normally heard. : Deferred. RECTAL: Deferred. LYMPHATIC: No lymphadenopathy noted in the neck. EXTREMITIES: Trace edema with no cyanosis.. No clubbing. Peripheral pulses are palpated in fairly good volume and amplitude MUSCULOSKELETAL: No acute joint deformities or swelling SKIN: There are no significant rashes or ecchymosis NEUROPSYCHIATRIC: Intubated and sedated. Moves all extremities. Urinary Catheter Management^: Whitley: Cath Placed During This Visit: yes Reason for Continuing Indwelling Catheter: Accurate Measurement of Urinary Output in Critically Ill Patients Urinary Catheter Date of Insertion: 04/22/20 Urinary Catheter Time of Insertion: 18:43 Data : 04/28/20 03:10 04/28/20 03:10 Micro: Microbiology 04/23/20 06:44 Blood Culture - Final Blood NO GROWTH AFTER 5 DAYS A&P Assessment and plan (1) Acute on chronic diastolic (congestive) heart failure: Patient seems to have intermittent diastolic heart failure. Because of the recent kidney function, he requires hemodialysis. Patient is scheduled for catheter placement today Status: Acute (2) Atrial fibrillation with rapid ventricular response: Because of his inability to take medications orally, I may start him on IV amiodarone, maintenance dose. Status: Resolved (3) Acute kidney injury superimposed on chronic kidney disease: The family family has decided on dialysis. Status: Acute (4) Diabetes mellitus: Blood sugar seems to be fairly under control Status: Chronic Qualifiers: Diabetes mellitus complication status: with hyperglycemia Diabetes mellitus penitentiary insulin use: without rodent exterminator use Diabetes mellitus type: type 2 Qualified Code(s): E11.65 - Type 2 diabetes mellitus with hyperglycemia (5) Anemia: The hemoglobin seems to be fairly stable after the blood transfusion. 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
[2020-04-28] MEDS: vancomycin 1,000 MG in sodium chloride 0.9% 250 ML 250 MG IV (14:47)
[2020-04-28 17:14] LABS: Glucose Point of Care 94 mg/dL (70-110)
--- NOTE | 2020-04-28 17:43 | DCPLANNER ---
pg 2 of im updated and reviewed with Pt's Son. No questions, copy provided.
--- NOTE | 2020-04-28 17:59 | PC.SLP ---
Speech therapy evaluation not completed per nursing request.
[2020-04-28] MEDS: morphine 4 mg/mL SDV 1 mL 2 MG IVP ×2 (18:17→22:17)
--- NOTE | 2020-04-28 19:51 | PC.NURSE ---
Pt given IV morphine by dayshift RN in aid to decrease pain levels before change of shift. At time of shift change, patient was found pulling at NC and sats found down in the low to mid 80's. Pt placed back on Bipap by nightshift RN. Rt rounded and notified. Patient continued to try to pull off Bipap mask despite diversion from RT and RN. SPO2 sat down into mid 80's with HR increasing to 120's. Pt given Ativan IVP. After admin, patient v/s normalized with SPO2 returning to 95% and HR to 90's.
[2020-04-28 20:55] LABS: Glucose Point of Care 97 mg/dL (70-110)
[2020-04-29] VITALS (67 sets, daily range): BP systolic 84–137; BP diastolic 47–89; PULSE 71–137; RESP 8–34; TEMP 36.6–37.3; O2SAT 82–99
[2020-04-29] MEDS: ipratropium-albuterol 3 mL Neb INHALATION ×6 (00:23→20:20)
[2020-04-29] MEDS: piperacillin-tazobactam 3.375 GM in sodium chloride 0.9% (plus) 50 ML IV ×2 (01:07→12:22)
[2020-04-29 04:51] LABS: Basophils # 0.1 10^3/uL (0.0-0.1); Basophils % 1.4 %; Eosinophils # 0.4 10^3/uL (0.0-0.8); Eosinophils % 4.6 %; Hematocrit 32.9 % (42.0-52.0); Hemoglobin 9.3 g/dL (11.7-16.6); Lymphocytes # 0.9 10^3/uL (0.8-4.8); Lymphocytes % 12.1 %; Mean Corpuscular HGB Conc 28.3 g/dL (30.0-36.0); Mean Corpuscular Hemoglobin 25.6 pg (28.0-34.0); Mean Corpuscular Volume 90.6 fL (80-94); Mean Platelet Volume 10.2 fL (7.4-10.4); Monocytes # 1.1 10^3/uL (0.2-0.9); Monocytes % 14.1 %; Neutrophils % 66.4 %; Nucleated Red Blood Cells % 0 %; Platelet Count 265 10^3/cmm (130-400); Red Blood Count 3.63 10^6/uL (4.1-5.3); White Blood Count 7.7 10^3/uL (4.0-10.0)
[2020-04-29] MEDS: LORazepam 2 mg/mL INJ 1 mL 1 MG IVP ×2 (06:16→12:22)
[2020-04-29 06:26] LABS: Alanine Aminotransferase 19 U/L (0-41); Albumin Level 3.1 g/dL (3.5-5.2); Alkaline Phosphatase 174 IU/L (40-130); Anion Gap 20.6 (5-19); Aspartate Amino Transferase 23 U/L (0-40); Blood Urea Nitrogen 33 mg/dL (8-23); Calcium 8.6 mg/dL (8.5-10.5); Carbon Dioxide 23 mmol/L (22-29); Chloride 98 mmol/L (98-107); Globulin 3.6 g/dL (1.3-4.6); Glucose 106 mg/dL (65-115); Osmolality Calculated 294 mOsm/kg (285-295); Potassium 3.6 mmol/L (3.5-5.1); Sodium 138 mmol/L (136-145); Total Bilirubin 0.4 mg/dL (0.15-1.2); Total Protein 6.7 g/dL (6.6-8.7)
--- NOTE | 2020-04-29 06:31 | PC.NURSE ---
Shift Summary: Pt has exhibited severe agitation and confusion throughout shift. IVP Ativan and Morphine given to attempts to decrease pain and agitation. Patient has attempted to pull on HD cath, IV's, Whitley and Leads despite redirection, repositioning, and diversional actions of RN and RT. Patient had multiple attempts at removing Bipap mask. Change to Bipap labeled #1 mask. Change increased SPO2 to 95-99%. Strict turn schedule implemented throughout nightshift in attempt to decrease severity of pressure injury found on sacral point. 125 u/o Amio Drip 0.5 Report given to oncoming shift nurse.
[2020-04-29 07:20] LABS: Glucose Point of Care 107 mg/dL (70-110)
--- NOTE | 2020-04-29 07:35 | P.PN_ITS ---
Subjective Subjective: Interval history: continues to be somnolent, remains on Bipap, opens eyes to calling name, however does not follow any other commands Medications: Reviewed: Yes Medication Review Details: Current Medications Acetaminophen (Tylenol) 650 mg PO Q6H PRN PRN Reason: Mild/Mod Pain Or Temp >/= 101 Hydrocodone Bitart/Acetaminophen ([place] 5-325 Mg) 1 tab PO Q4H PRN PRN Reason: MODERATE TO SEVERE PAIN Albuterol/Ipratropium (Duoneb) 3 ml INHALATION Q4H.[facility] Last Admin: 04/28/20 11:15 Dose: 3 ml Documented by: Amiodarone HCl (Cordarone) 200 mg PO DAILY [facility] Last Admin: 04/28/20 08:58 Dose: Not Given Documented by: Amlodipine Besylate (Norvasc) 10 mg PO DAILY [facility] Last Admin: 04/23/20 09:39 Dose: 10 mg Documented by: Atorvastatin Calcium (Lipitor) 20 mg PO BEDTIME [facility] Last Admin: 04/27/20 20:33 Dose: Not Given Documented by: Bisacodyl (Dulcolax) 10 mg PO DAILY PRN PRN Reason: CONSTIPATION Dextrose (D50w) 25 ml IVP ONCE PRN; Protocol PRN Reason: hypoglycemia protocol Dextrose (D50w) 50 ml IVP PRN PRN; Protocol PRN Reason: hypoglycemia protocol Ferrous Sulfate (Ferrous Sulfate) 325 mg PO BIDWM [facility] Last Admin: 04/28/20 07:57 Dose: Not Given Documented by: Gabapentin (Neurontin) 400 mg PO DAILY [facility] Last Admin: 04/28/20 08:58 Dose: Not Given Documented by: Glucagon (Glucagen) 1 mg IM ONCE PRN; Protocol PRN Reason: Adult Acute Hypoglycemia Prot. Hydralazine HCl (Apresoline) 25 mg PO TID [facility] Last Admin: 04/28/20 08:58 Dose: Not Given Documented by: Dextrose (D5w) 500 mls @ 100 mls/hr IV ONCE PRN; Protocol PRN Reason: Adult Acute Hypoglycemia Prot Propofol (Diprivan) 1,000 mg in 100 mls @ 0 mls/hr IV .Q0M [facility]; Protocol Last Titration: 04/25/20 10:30 Dose: 0 mcg/kg/min, 0 mls/hr Documented by: Furosemide 100 mg/ Sodium (Chloride) 50 mls @ 0 mls/hr IV .Q0M [facility]; Protocol Last Admin: 04/27/20 00:43 Dose: 15 mg/hr, 7.5 mls/hr Documented by: Piperacillin Sod/Tazobactam (Sod 3.375 gm/ Sodium Chloride) 50 mls @ 12.5 mls/hr IV Q12H [facility]; Protocol Last Admin: 04/28/20 13:43 Dose: 12.5 mls/hr Documented by: Vancomycin HCl 1,000 mg/ (Sodium Chloride) 250 mls @ 250 mls/hr IV Q48H [facility]; Protocol Last Infusion: 04/26/20 16:16 Dose: Infused Documented by: Insulin Aspart (Novolog) 0 unit SUBCUT BEDTIME [facility]; Protocol Last Admin: 04/27/20 20:03 Dose: Not Given Documented by: Insulin Aspart (Novolog) 0 unit SUBCUT TIDWM [facility]; Protocol Last Admin: 04/28/20 12:05 Dose: Not Given Documented by: Isosorbide Mononitrate (Imdur) 60 mg PO QAM [facility] Last Admin: 04/28/20 06:22 Dose: Not Given Documented by: Lorazepam (Ativan) 1 mg IVP Q4H PRN PRN Reason: ANXIETY Last Admin: 04/28/20 04:49 Dose: 1 mg Documented by: Metolazone (Zaroxolyn) 5 mg PO DAILY [facility] Last Admin: 04/28/20 08:58 Dose: Not Given Documented by: Metoprolol Tartrate (Lopressor) 25 mg PO BID [facility] Last Admin: 04/26/20 08:11 Dose: Not Given Documented by: Metoprolol Tartrate (Metoprolol Tartrate) 5 mg IV Q4H PRN PRN Reason: HR greater than 110 Last Admin: 04/28/20 13:43 Dose: 5 mg Documented by: Morphine Sulfate (Morphine) 2 mg IVP Q4H PRN PRN Reason: SEVERE PAIN Last Admin: 04/27/20 22:49 Dose: 2 mg Documented by: Multi-Ingredient Ointment (Eucerin) 1 applic TOPICAL BID [facility] Last Admin: 04/28/20 08:25 Dose: 1 applic Documented by: Naloxone HCl (Narcan) 0.1 mg IVP Q2M PRN PRN Reason: OPIATERV Ondansetron HCl (Zofran) 4 mg IVP Q8H PRN PRN Reason: vomiting, or N/V if npo Pantoprazole Sodium (Protonix) 40 mg IVP Q12H [facility] Last Admin: 04/28/20 08:15 Dose: 40 mg Documented by: Potassium Chloride (Potassium Chloride Oral Liquid) 10 meq PO DAILY [facility] Last Admin: 04/28/20 08:59 Dose: Not Given Documented by: Trazodone HCl (Desyrel) 50 mg PO BEDTIME [facility] Last Admin: 04/27/20 20:34 Dose: Not Given Documented by: Vitals/I&O/Wt Last Vital Signs Temp 97.8 F 04/28/20 15:30 Pulse 118 H 04/29/20 06:07 Resp 15 04/29/20 06:00 BP 128/83 04/29/20 06:00 Pulse Ox 96 04/29/20 06:07 04/28/20 04/29/20 04/29/20 22:59 06:59 14:59 Intake Total 257 / 257 Output Total 100 / 200 75 / 275 Balance 157 / 57 -75 / -18 Weight last 48 hrs Weight 81.987 kg Weight 84.34 kg Physical Exam Narrative: EXAM NARRATIVE: GEN: Somnolent,opens eyes to calling name however doesnt answer any questions or follow any other commands CVS: S1S2 N RS: CTA B/Lanteriorly Abd: Soft, nt/nd , bs+ Urinary Catheter Management^: Jaquez: Cath Placed During This Visit: yes Reason for Continuing Indwelling Catheter: Accurate Measurement of Urinary Output in Critically Ill Patients Urinary Catheter Date of Insertion: 04/22/20 Urinary Catheter Time of Insertion: 18:43 Data : 04/29/20 04:20 04/29/20 05:48 Micro: Microbiology 04/23/20 02:01 Blood Culture - Final Blood Coagulase negativ staphylococc 04/23/20 06:44 Blood Culture - Final Blood NO GROWTH AFTER 5 DAYS A&P Assessment and plan (1) Acute on chronic diastolic (congestive) heart failure: Extubated on 04/25/20 However still needing Bipap for respiratory support Cardiology consult appreciated Appreciate nephrology and surgical consultation. No HD today Status: Acute (2) Chronic anemia: Acute on chronic anemia also with iron deficiency Fecal occult blood positive this admission, no evidence of any active bleeding at this time, continue on PPI twice daily Consider further outpatient work-up once cardiopulmonary status improved Status: Acute (3) Chronic kidney disease: Chronic kidney disease increasing BUN and creatinine Appreciate nephrology consultation Patient had dialysis catheter placed on 04/27/2020, s.p 2 HD sessions Status: Chronic (4) Ventricular tachycardia: Prior history of ventricular tachycardia, on amiodarone 200 mg daily, metoprolol 25mg, however unable to take due to inability to swallow medications Continue IV metoprolol PRN, may require esmolol drip Status: Resolved (5) High risk medication use: Status: Acute (6) Edema, peripheral: improved Status: Acute (7) Dyslipidemia: Continue home statin Status: Acute (8) Hypertension: Status: Acute Qualifiers: Hypertension type: essential hypertension Qualified Code(s): I10 - Essential (primary) hypertension (9) Dementia: With some sundowning at night Status: Chronic Qualifiers: Dementia type: Lewy body dementia Dementia behavioral disturbance: without behavioral disturbance Qualified Code(s): G31.83 - Dementia with Lewy bodies; F02.80 - Dementia in other diseases classified elsewhere without behavioral disturbance (10) Diabetes mellitus: Lantus held Sliding scale as needed Glipizide on hold Status: Chronic Qualifiers: Diabetes mellitus type: type 2 Diabetes mellitus manager long term care insulin use: without jail use Diabetes mellitus complication status: with hyperglycemia Qualified Code(s): E11.65 - Type 2 diabetes mellitus with hyperglycemia (11) Atrial fibrillation: Paroxysmal atrial fibrillation IV metoprolol scheduled due to inability to take p.o. Cardiology consultation appreciated Off of anticoagulation due to anemia Status: Acute Additional A&P Information Acute respiratory failure: intubated on 04/22/20, RTAT, extubated on 04/25/2020, continue to wean oxygen as tolerated Difficult jaquez placement: Jaquez placed by Dr. Del Real, appreciate consultati on. pneumonia: On vancomycin and Zosyn due to concern for pneumonia, however sputum culture showing mixed ray of the upper respiratory tract. d/c vancomycin Positive blood culture: Showing coag negative staph, likely contaminant as only in 1 bottle, repeat blood cultures show no growth to date. Lewy body dementia DVT prophylaxis: SCDs, no pharmacologic prophylaxis due to anemia Diet: NPO, ST eval GI ppx: PPI CODE STATUS: Full code Dispo: trasition to LTAC Attestations Medical Necessity Statement*: tenous respiratory status, needs bipap support, continues to be somnolent Coding Level of Care Code Acute Inventory Control Analyst for Chg Fwd Diagnoses Acute on chronic diastolic (congestive) heart failure I50.33 Chronic anemia D64.9 Chronic kidney disease N18.9 Ventricular tachycardia I47.2 High risk medication use Z79.899 Edema, peripheral R60.9 Dyslipidemia E78.5 Hypertension I10 Hypertension type: essential hypertension Dementia G31.83; F02.80 Dementia type: Lewy body dementia Dementia behavioral disturbance: without behavioral disturbance Diabetes mellitus E11.65 Diabetes mellitus type: type 2 Diabetes mellitus jail insulin use: without manager long term care use Diabetes mellitus complication status: with hyperglycemia Atrial fibrillation I48.91
[2020-04-29] MEDS: pantoprazole 40 mg SDV IVP ×2 (08:01→21:14)
[2020-04-29] MEDS: eucerin cream 113 gm Jar 1 APPLIC TOPICAL ×2 (08:02→18:07)
[2020-04-29] MEDS: ferrous sulfate EC 325 mg Tablet PO ×2 (08:38→18:07)
[2020-04-29] MEDS: metOLazone 5 MG Tablet PO (08:38)
[2020-04-29] MEDS: isosorbide mononitrate ER 60 mg Tablet PO (08:38)
[2020-04-29] MEDS: gabapentin 400 mg Capsule PO (08:38)
[2020-04-29] MEDS: hyDRALAzine 25 mg Tablet PO (08:38)
--- NOTE | 2020-04-29 09:29 | PC.OT ---
Unable to see this date. RN reports patient not following commands and states, we need to get his mind better and then you can work with him.
[2020-04-29 11:28] LABS: Glucose Point of Care 109 mg/dL (70-110)
--- NOTE | 2020-04-29 12:35 | P.PN_ITS ---
Subjective Subjective: Interval history: Patient is still very drowsy. He is opening the eyes with verbal commands. Has not had any recurrence of atrial fibrillation since was started on the IV amiodarone. Vital signs remained stable. Afebrile. No new symptoms. Medications: Reviewed: Yes Medication Review Details: Current Medications Acetaminophen (Tylenol) 650 mg PO Q6H PRN PRN Reason: Mild/Mod Pain Or Temp >/= 101 Hydrocodone Bitart/Acetaminophen ([place] 5-325 Mg) 1 tab PO Q4H PRN PRN Reason: MODERATE TO SEVERE PAIN Albuterol/Ipratropium (Duoneb) 3 ml INHALATION Q4H.RESPIRATORY [facility] Last Admin: 04/28/20 11:15 Dose: 3 ml Documented by: Amiodarone HCl (Cordarone) 200 mg PO DAILY [facility] Last Admin: 04/28/20 08:58 Dose: Not Given Documented by: Amlodipine Besylate (Norvasc) 10 mg PO DAILY [facility] Last Admin: 04/23/20 09:39 Dose: 10 mg Documented by: Atorvastatin Calcium (Lipitor) 20 mg PO BEDTIME [facility] Last Admin: 04/27/20 20:33 Dose: Not Given Documented by: Bisacodyl (Dulcolax) 10 mg PO DAILY PRN PRN Reason: CONSTIPATION Dextrose (D50w) 25 ml IVP ONCE PRN; Protocol PRN Reason: hypoglycemia protocol Dextrose (D50w) 50 ml IVP PRN PRN; Protocol PRN Reason: hypoglycemia protocol Ferrous Sulfate (Ferrous Sulfate) 325 mg PO BIDWM [facility] Last Admin: 04/28/20 07:57 Dose: Not Given Documented by: Gabapentin (Neurontin) 400 mg PO DAILY [facility] Last Admin: 04/28/20 08:58 Dose: Not Given Documented by: Glucagon (Glucagen) 1 mg IM ONCE PRN; Protocol PRN Reason: Adult Acute Hypoglycemia Prot. Hydralazine HCl (Apresoline) 25 mg PO TID [facility] Last Admin: 04/28/20 08:58 Dose: Not Given Documented by: Dextrose (D5w) 500 mls @ 100 mls/hr IV ONCE PRN; Protocol PRN Reason: Adult Acute Hypoglycemia Prot Propofol (Diprivan) 1,000 mg in 100 mls @ 0 mls/hr IV .Q0M [facility]; Protocol Last Titration: 10/13/20 10:30 Dose: 0 mcg/kg/min, 0 mls/hr Documented by: Furosemide 100 mg/ Sodium (Chloride) 50 mls @ 0 mls/hr IV .Q0M [facility]; Protocol Last Admin: 04/27/20 00:43 Dose: 15 mg/hr, 7.5 mls/hr Documented by: Piperacillin Sod/Tazobactam (Sod 3.375 gm/ Sodium Chloride) 50 mls @ 12.5 mls/hr IV Q12H [facility]; Protocol Last Admin: 04/28/20 13:43 Dose: 12.5 mls/hr Documented by: Vancomycin HCl 1,000 mg/ (Sodium Chloride) 250 mls @ 250 mls/hr IV Q48H [facility]; Protocol Last Infusion: 04/26/20 16:16 Dose: Infused Documented by: Insulin Aspart (Novolog) 0 unit SUBCUT BEDTIME [facility]; Protocol Last Admin: 04/27/20 20:03 Dose: Not Given Documented by: Insulin Aspart (Novolog) 0 unit SUBCUT TIDWM [facility]; Protocol Last Admin: 04/28/20 12:05 Dose: Not Given Documented by: Isosorbide Mononitrate (Imdur) 60 mg PO QAM [facility] Last Admin: 04/28/20 06:22 Dose: Not Given Documented by: Lorazepam (Ativan) 1 mg IVP Q4H PRN PRN Reason: ANXIETY Last Admin: 04/28/20 04:49 Dose: 1 mg Documented by: Metolazone (Zaroxolyn) 5 mg PO DAILY [facility] Last Admin: 04/28/20 08:58 Dose: Not Given Documented by: Metoprolol Tartrate (Lopressor) 25 mg PO BID [facility] Last Admin: 04/26/20 08:11 Dose: Not Given Documented by: Metoprolol Tartrate (Metoprolol Tartrate) 5 mg IV Q4H PRN PRN Reason: HR greater than 110 Last Admin: 04/28/20 13:43 Dose: 5 mg Documented by: Morphine Sulfate (Morphine) 2 mg IVP Q4H PRN PRN Reason: SEVERE PAIN Last Admin: 04/27/20 22:49 Dose: 2 mg Documented by: Multi-Ingredient Ointment (Eucerin) 1 applic TOPICAL BID [facility] Last Admin: 04/28/20 08:25 Dose: 1 applic Documented by: Naloxone HCl (Narcan) 0.1 mg IVP Q2M PRN PRN Reason: OPIATERV Ondansetron HCl (Zofran) 4 mg IVP Q8H PRN PRN Reason: vomiting, or N/V if npo Pantoprazole Sodium (Protonix) 40 mg IVP Q12H [facility] Last Admin: 04/28/20 08:15 Dose: 40 mg Documented by: Potassium Chloride (Potassium Chloride Oral Liquid) 10 meq PO DAILY [facility] Last Admin: 04/28/20 08:59 Dose: Not Given Documented by: Trazodone HCl (Desyrel) 50 mg PO BEDTIME [facility] Last Admin: 04/27/20 20:34 Dose: Not Given Documented by: Vitals/I&O/Wt Last Vital Signs Temp 98.6 F 04/29/20 07:44 Pulse 80 04/29/20 12:00 Resp 21 H 04/29/20 12:00 BP 123/64 04/29/20 12:00 Pulse Ox 95 04/29/20 12:00 04/28/20 04/29/20 04/29/20 22:59 06:59 14:59 Intake Total 257 / 257 50 / 307 Output Total 100 / 200 75 / 275 Balance 157 / 57 -25 / 32 Weight last 48 hrs Weight 180 lb 12 oz Weight 185 lb 15 oz Physical Exam Narrative: EXAM NARRATIVE: GENERAL: Patient is very drowsy and not communica ting verbally. HEENT: Minimal pallor, icterus or lymphadenopathy.Oral cavity: There are no mucous membrane lesions. NECK: Trachea appears to be central. No masses noted. No JVD or thyromegaly appreciated. RESPIRATORY: Chest is symmetrical. No intercostals muscle retraction or any accessory muscle activation. There is no chest wall tenderness. Breath sounds are heard bilaterally. No rales or rhonchi heard. No evidence of any consolidation. Scattered crackles in the bases. Breath sounds are diminished in the bases BREASTS: Deferred. HEART: The heart sounds are normal. No S3 or S4. Ejection systolic murmur grade 3/6 at the base of the heart.. No pericardial rub ABDOMEN: No vessel pulsations or distention. No tenderness. No organomegaly appreciated. Bowel sounds are normally heard. : Deferred. RECTAL: Deferred. LYMPHATIC: No lymphadenopathy noted in the neck. EXTREMITIES: Trace edema with no cyanosis.. No clubbing. Peripheral pulses are palpated in fairly good volume and amplitude MUSCULOSKELETAL: No acute joint deformities or swelling SKIN: There are no significant rashes or ecchymosis NEUROPSYCHIATRIC: Intubated and sedated. Moves all extremities. Urinary Catheter Management^: Whitley: Cath Placed During This Visit: yes Reason for Continuing Indwelling Catheter: Accurate Measurement of Urinary Output in Critically Ill Patients Urinary Catheter Date of Insertion: 04/22/20 Urinary Catheter Time of Insertion: 18:43 Data : 04/30/20 08:38 04/30/20 08:38 Micro: Microbiology 04/23/20 02:01 Blood Culture - Final Blood Coagulase negativ staphylococc A&P Assessment and plan (1) Acute on chronic diastolic (congestive) heart failure: Patient seems to have intermittent diastolic heart failure. He is on hemodialysis. The BUN/creatinine is coming down. Status: Acute (2) Atrial fibrillation with rapid ventricular response: Currently on IV amiodarone. Telemetry shows normal sinus rhythm. Status: Resolved (3) Acute kidney injury superimposed on chronic kidney disease: Dialysis as per the nephrology service Status: Acute (4) Diabetes mellitus: Blood sugar seems to be fairly under control Status: Chronic Qualifiers: Diabetes mellitus complication status: with hyperglycemia Diabetes mellitus jail insulin use: without jail use Diabetes mellitus type: type 2 Qualified Code(s): E11.65 - Type 2 diabetes mellitus with hyperglycemia (5) Anemia: The hemoglobin seems to be fairly stable after the blood transfusion. Status: Acute Qualifiers: Anemia type: iron deficiency Iron deficiency anemia type: chronic blood loss Qualified Code(s): D50.0 - Iron deficiency anemia secondary to blood loss (chronic) Additional A&P Information Other problems are as outlined before Attestations Medical Necessity Statement*: Deferred to the primary Coding Level of Care Code Acute Granulator Machine Operator for [facility] Fwcorrie Medical Decision Making Moderate Complexity Diagnoses Acute on chronic diastolic (congestive) heart failure I50.33 Atrial fibrillation with rapid ventricular response I48.91 Acute kidney injury superimposed on chronic kidney disease N17.9; N18.9 Diabetes mellitus E11.65 Diabetes mellitus complication status: with hyperglycemia Diabetes mellitus computer terminal operator insulin use: without jail use Diabetes mellitus type: type 2 Anemia D50.0 Anemia type: iron deficiency Iron deficiency anemia type: chronic blood loss
--- NOTE | 2020-04-29 14:29 | PC.SLP ---
ELECTRICIAN SUPERVISOR SUBSTATION will attempt to follow-up with the pt tomorrow. The pt is not alert enough now to participate.
--- NOTE | 2020-04-29 16:00 | PC.NURSE ---
1500 hydralazine not administered due to pt sleeping. He had be agitated ealier and received ativan.
--- NOTE | 2020-04-29 16:36 | PM.PN ---
Subjective Subjective: Interval history: I am seeing him in follow up for his renal failure. Got dialysis yesterday. No new issues overnight Medications: Reviewed: Yes Vitals/I&O/Wt Last Vital Signs Temp 99.1 F 04/29/20 14:00 Pulse 103 H 04/29/20 16:00 Resp 20 H 04/29/20 16:00 BP 115/64 04/29/20 16:00 Pulse Ox 90 04/29/20 16:00 04/29/20 04/29/20 04/29/20 06:59 14:59 22:59 Intake Total 50 / 307 311 / 311 Output Total 75 / 275 Balance - 311 / 311 Weight last 48 hrs Weight 81.987 kg Weight 84.34 kg Physical Exam Const: COMMON NORMALS: no acute distress GENERAL APPEARANCE: comfortable Resp: AUSCULTATION: crackles Cardio: COMMON NORMALS: S1 normal heart sound present and S2 normal heart sound present HEART SOUNDS: S1 normal heart sound present and S2 normal heart sound present GI: AUSCULTATION: Yes normoactive bowel sounds Extremity: GENERAL: Yes edema Skin: COMMON NORMALS: no rashes or lesions noted GENERAL SKIN EXAM: no rashes or lesions noted Urinary Catheter Management^: Whitley: Cath Placed During This Visit: yes Reason for Continuing Indwelling Catheter: Accurate Measurement of Urinary Output in Critically Ill Patients Urinary Catheter Date of Insertion: 04/22/20 Urinary Catheter Time of Insertion: 18:43 Data : 04/29/20 04:20 04/29/20 05:48 Micro: Microbiology 04/23/20 02:01 Blood Culture - Final Blood Coagulase negativ staphylococc A&P Assessment and plan (1) Acute kidney injury superimposed on chronic kidney disease: Got dialysis yesterday. Will tentatively plan for HD on mon if needed Status: Acute (2) Congestive heart failure: Will add lasix 80mg iv q12hrs Status: Acute (3) Anemia: Follow hb Status: Acute Qualifiers: Anemia type: iron deficiency Iron deficiency anemia type: chronic blood loss Qualified Code(s): D50.0 - Iron deficiency anemia secondary to blood loss (chronic) (4) Hypertension: Monitor BP Status: Acute Qualifiers: Hypertension type: essential hypertension Qualified Code(s): I10 - Essential (primary) hypertension Attestations Medical Necessity Statement*: Renal failure/CHF exacerbation Coding Level of Care Code Acute Grain Oilseed Or Pasture Grower for Chg Fwd Diagnoses Acute kidney injury superimposed on chronic kidney disease N17.9; N18.9 Congestive heart failure I50.9 Anemia D50.0 Anemia type: iron deficiency Iron deficiency anemia type: chronic blood loss Hypertension I10 Hypertension type: essential hypertension
[2020-04-29 17:07] LABS: Glucose Point of Care 115 mg/dL (70-110)
[2020-04-29] MEDS: FUROsemide 10 mg/mL SDV 10mL 80 MG IVP (17:41)
[2020-04-29] MEDS: diphenhydrAMINE 50 mg/mL SDV 1mL 12.5 MG IVP (17:41)
[2020-04-29] MEDS: acetaminophen 325 mg Tablet 650 MG PO (18:06)
--- NOTE | 2020-04-29 18:30 | PC.NURSE ---
All care performed and charted by SN Kelly (also ROCKY) directly supervised by this nurse.
--- NOTE | 2020-04-29 18:45 | PC.NURSE ---
Received report on patient from Linda CARRINGTON. Assumed care at this time.
--- NOTE | 2020-04-29 19:07 | PC.NURSE ---
Shift summary: Pt alert to self. Able to admin po am meds crushed with applesauce this morning. Pt cannot use a straw at this time. Pt mumbles in a singsong tone, but he has answered some direct questions. IV sites in Left hand and forearm still patent and intact. Pt used BiPap most of the day, hi flow at 10-11 lpm/NC used intermittently. He still attempts to pull BiPap mask and gown off, and at jaquez. He has had 3 jaquez statlocks applied. Pericare provided twice, hoping that would help him not want to pull a jaquez, did not seems to matter. He has had 3 smears of tarry BM. He has a pressure injury on his bottom that is a dark purple with an open area and firmness. Minimal urine output at 175ml, jaskaran slightly cloudy urine.
[2020-04-29 21:11] LABS: Glucose Point of Care 119 mg/dL (70-110)
--- NOTE | 2020-04-29 22:10 | PC.NURSE ---
Patient becoming very restless and pulling at his BiPap and jaquez. Dr Hull notified and requested ativan for agitation.
[2020-04-29] MEDS: ziprasidone 20 mg/mL SDV IM (23:36)
[2020-04-30] VITALS (46 sets, daily range): BP systolic 89–159; BP diastolic 53–95; PULSE 69–129; RESP 4–26; TEMP 36.3–37.1; O2SAT 91–98; BMI 27.4
[2020-04-30] MEDS: piperacillin-tazobactam 3.375 GM in sodium chloride 0.9% (plus) 50 ML IV ×2 (01:00→12:49)
[2020-04-30] MEDS: LORazepam 2 mg/mL INJ 1 mL 1 MG IVP (02:35)
[2020-04-30] MEDS: ipratropium-albuterol 3 mL Neb INHALATION ×6 (04:20→20:12)
[2020-04-30] MEDS: FUROsemide 10 mg/mL SDV 10mL 80 MG IVP ×2 (05:00→17:27)
[2020-04-30 07:13] LABS: Glucose Point of Care 129 mg/dL (70-110)
--- NOTE | 2020-04-30 07:44 | P.PN_ITS ---
Subjective Subjective: Interval history: failed swallow evalutaion, has been too somnolent to safely swallow, this morning, best response is opening eyes, does notf ollow commands for me. Continues to be tachycardic, continues on iv amiodarone as unable to take po inatke. Intermitetntly needs extra doses of metorpolol Medications: Reviewed: Yes Vitals/I&O/Wt Last Vital Signs Temp 98.4 F 04/30/20 07:23 Pulse 81 04/30/20 06:00 Resp 23 H 04/30/20 06:00 BP 148/79 04/30/20 06:00 Pulse Ox 94 04/30/20 06:00 04/29/20 04/30/20 04/30/20 22:59 06:59 14:59 Intake Total 461 / 461 Output Total 405 / 405 750 / 1155 Balance 56 / 56 -750 / -694 Weight last 48 hrs Weight 81.987 kg Weight 81.987 kg Physical Exam Narrative: EXAM NARRATIVE: GEN: Somnolent,opens eyes to calling name however doesnt answer any questions or follow any other commands CVS: S1S2 N RS: CTA B/Lanteriorly Abd: Soft, nt/nd , bs+ Urinary Catheter Management^: Jaquez: Cath Placed During This Visit: yes Reason for Continuing Indwelling Catheter: Accurate Measurement of Urinary Output in Critically Ill Patients Urinary Catheter Date of Insertion: 04/22/20 Urinary Catheter Time of Insertion: 18:43 Data : 04/30/20 08:38 04/30/20 08:38 A&P Assessment and plan (1) Acute on chronic diastolic (congestive) heart failure: Extubated on 04/25/20 However still needing Bipap for respiratory support Cardiology consult appreciated Appreciate nephrology and surgical consultation. Status: Acute (2) Chronic anemia: Acute on chronic anemia also with iron deficiency Fecal occult blood positive this admission, no evidence of any active bleeding at this time, continue on PPI twice daily Consider further outpatient work-up once cardiopulmonary status improved Status: Acute (3) Chronic kidney disease: Chronic kidney disease increasing BUN and creatinine Appreciate nephrology consultation Patient had dialysis catheter placed on 04/27/2020, s.p 2 HD sessions Status: Chronic (4) Ventricular tachycardia: Prior history of ventricular tachycardia, on amiodarone 200 mg daily, metoprolol 25mg, however unable to take due to inability to swallow medications Continue IV metoprolol PRN, may require esmolol drip Status: Resolved (5) High risk medication use: Status: Acute (6) Edema, peripheral: improved Status: Acute (7) Dyslipidemia: Continue home statin Status: Acute (8) Hypertension: Status: Acute Qualifiers: Hypertension type: essential hypertension Qualified Code(s): I10 - Essential (primary) hypertension (9) Dementia: With some sundowning at night Status: Chronic Qualifiers: Dementia type: Lewy body dementia Dementia behavioral disturbance: without behavioral disturbance Qualified Code(s): G31.83 - Dementia with Lewy bodies; F02.80 - Dementia in other diseases classified elsewhere without behavioral disturbance (10) Diabetes mellitus: Lantus held Sliding scale as needed Glipizide on hold Status: Chronic Qualifiers: Diabetes mellitus type: type 2 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 Cardiology consultation appreciated Off of anticoagulation due to anemia Status: Acute Additional A&P Information Acute respiratory failure: intubated on 04/22/20, RTAT, extubated on 04/25/2020, continue to wean oxygen as tolerated Difficult jaquez placement: Jaquez placed by Dr. Del Real, appreciate consulta tion. pneumonia: On vancomycin and Zosyn due to concern for pneumonia, however sputum culture showing mixed ray of the upper respiratory tract. d/c vancomycin Positive blood culture: Showing coag negative staph, likely contaminant as only in 1 bottle, repeat blood cultures show no growth to date. 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 [employer] Fwd Diagnoses Acute on chronic diastolic (congestive) heart failure I50.33 Chronic anemia D64.9 Chronic kidney disease N18.9 Ventricular tachycardia I47.2 High risk medication use Z79.899 Edema, peripheral R60.9 Dyslipidemia E78.5 Hypertension I10 Hypertension type: essential hypertension Dementia G31.83; F02.80 Dementia type: Lewy body dementia Dementia behavioral disturbance: without behavioral disturbance Diabetes mellitus E11.65 Diabetes mellitus type: type 2 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
[2020-04-30 08:45] LABS: Basophils # 0.1 10^3/uL (0.0-0.1); Basophils % 1.2 %; Eosinophils # 0.3 10^3/uL (0.0-0.8); Eosinophils % 3.8 %; Hematocrit 33.4 % (42.0-52.0); Hemoglobin 9.6 g/dL (11.7-16.6); Lymphocytes # 0.8 10^3/uL (0.8-4.8); Lymphocytes % 10.8 %; Mean Corpuscular HGB Conc 28.7 g/dL (30.0-36.0); Mean Corpuscular Hemoglobin 25.5 pg (28.0-34.0); Mean Corpuscular Volume 88.8 fL (80-94); Mean Platelet Volume 9.1 fL (7.4-10.4); Monocytes # 0.8 10^3/uL (0.2-0.9); Monocytes % 10.8 %; Neutrophils # 5.25 10^3/uL (1.8-7.7); Neutrophils % 71.9 %; Nucleated Red Blood Cells % 0 %; Platelet Count 230 10^3/cmm (130-400); Red Blood Count 3.76 10^6/uL (4.1-5.3); Red Cell Distribution Width 15.9 % (12.1-15.1); White Blood Count 7.3 10^3/uL (4.0-10.0)
[2020-04-30 09:11] LABS: Alanine Aminotransferase 16 U/L (0-41); Albumin Level 3.4 g/dL (3.5-5.2); Alkaline Phosphatase 159 IU/L (40-130); Anion Gap 26.3 (5-19); Aspartate Amino Transferase 21 U/L (0-40); Blood Urea Nitrogen 42 mg/dL (8-23); Carbon Dioxide 21 mmol/L (22-29); Chloride 100 mmol/L (98-107); Globulin 3.3 g/dL (1.3-4.6); Glucose 143 mg/dL (65-115); Osmolality Calculated 311 mOsm/kg (285-295); Potassium 3.3 mmol/L (3.5-5.1); Sodium 144 mmol/L (136-145); Total Bilirubin 0.4 mg/dL (0.15-1.2); Total Protein 6.7 g/dL (6.6-8.7)
--- NOTE | 2020-04-30 09:45 | PM.PN ---
Subjective Subjective: Interval history: Patient is very poorly responding to verbal commands. Intermittent agitations. moving all extremities. On BiPAP. Has been seen in the sinus rhythm most of the times. No new arrhythmias. No fever or chills. No similar cough. Medications: Reviewed: Yes Medication Review Details: Current Medications Acetaminophen (Tylenol) 650 mg PO Q6H PRN PRN Reason: Mild/Mod Pain Or Temp >/= 101 Last Admin: 04/29/20 18:06 Dose: 650 mg Documented by: Albuterol/Ipratropium (Duoneb) 3 ml INHALATION Q4H.RESPIRATORY [facility] Last Admin: 04/30/20 07:52 Dose: 3 ml Documented by: Amiodarone HCl (Cordarone) 200 mg PO DAILY [facility] Last Admin: 04/28/20 08:58 Dose: Not Given Documented by: Amlodipine Besylate (Norvasc) 10 mg PO DAILY [facility] Last Admin: 04/23/20 09:39 Dose: 10 mg Documented by: Atorvastatin Calcium (Lipitor) 20 mg PO BEDTIME [facility] Last Admin: 04/29/20 21:17 Dose: Not Given Documented by: Bisacodyl (Dulcolax) 10 mg PO DAILY PRN PRN Reason: CONSTIPATION Dextrose (D50w) 25 ml IVP ONCE PRN; Protocol PRN Reason: hypoglycemia protocol Dextrose (D50w) 50 ml IVP PRN PRN; Protocol PRN Reason: hypoglycemia protocol Ferrous Sulfate (Ferrous Sulfate) 325 mg PO BIDWM [facility] Last Admin: 04/29/20 18:07 Dose: 325 mg Documented by: Furosemide (Lasix) 80 mg IVP Q12H [facility] Last Admin: 04/30/20 05:00 Dose: 80 mg Documented by: Gabapentin (Neurontin) 400 mg PO DAILY [facility] Last Admin: 04/29/20 08:38 Dose: 400 mg Documented by: Glucagon (Glucagen) 1 mg IM ONCE PRN; Protocol PRN Reason: Adult Acute Hypoglycemia Prot. Hydralazine HCl (Apresoline) 25 mg PO TID [facility] Last Admin: 04/29/20 21:19 Dose: Not Given Documented by: Dextrose (D5w) 500 mls @ 100 mls/hr IV ONCE PRN; Protocol PRN Reason: Adult Acute Hypoglycemia Prot Propofol (Diprivan) 1,000 mg in 100 mls @ 0 mls/hr IV .Q0M [facility]; Protocol Last Titration: 04/25/20 12:00 Dose: Infused Documented by: Furosemide 100 mg/ Sodium (Chloride) 50 mls @ 0 mls/hr IV .Q0M [facility]; Protocol Last Admin: 04/27/20 00:43 Dose: 15 mg/hr, 7.5 mls/hr Documented by: Piperacillin Sod/Tazobactam (Sod 3.375 gm/ Sodium Chloride) 50 mls @ 12.5 mls/hr IV Q12H [facility]; Protocol Last Admin: 04/30/20 01:00 Dose: 12.5 mls/hr Documented by: Amiodarone HCl 900 mg/Dextrose/ IV Miscellaneous Supplies 518 mls @ 0 mls/hr IV .Q0M [facility]; Protocol Last Admin: 04/29/20 15:57 Dose: 0.5 mg/min, 17.3 mls/hr Documented by: Insulin Aspart (Novolog) 0 unit SUBCUT BEDTIME [facility]; Protocol Last Admin: 04/29/20 21:19 Dose: Not Given Documented by: Insulin Aspart (Novolog) 0 unit SUBCUT TIDWM [facility]; Protocol Last Admin: 04/30/20 07:14 Dose: Not Given Documented by: Isosorbide Mononitrate (Imdur) 60 mg PO QAM [facility] Last Admin: 04/30/20 07:02 Dose: Not Given Documented by: Metolazone (Zaroxolyn) 5 mg PO DAILY [facility] Last Admin: 04/29/20 08:38 Dose: 5 mg Documented by: Metoprolol Tartrate (Lopressor) 25 mg PO BID [facility] Last Admin: 04/26/20 08:11 Dose: Not Given Documented by: Metoprolol Tartrate (Metoprolol Tartrate) 5 mg IV Q4H PRN PRN Reason: HR greater than 110 Last Admin: 04/28/20 13:43 Dose: 5 mg Documented by: Multi-Ingredient Ointment (Eucerin) 1 applic TOPICAL BID [facility] Last Admin: 04/29/20 18:07 Dose: 1 applic Documented by: Naloxone HCl (Narcan) 0.1 mg IVP Q2M PRN PRN Reason: OPIATERV Ondansetron HCl (Zofran) 4 mg IVP Q8H PRN PRN Reason: vomiting, or N/V if npo Pantoprazole Sodium (Protonix) 40 mg IVP Q12H [facility] Last Admin: 04/29/20 21:14 Dose: 40 mg Documented by: Potassium Chloride (Potassium Chloride Oral Liquid) 10 meq PO DAILY [facility] Last Admin: 04/29/20 09:00 Dose: Not Given Documented by: Trazodone HCl (Desyrel) 50 mg PO BEDTIME [facility] Last Admin: 04/29/20 21:20 Dose: Not Given Documented by: Vitals/I&O/Wt Last Vital Signs Temp 98.4 F 04/30/20 07:23 Pulse 82 04/30/20 07:57 Resp 26 H 04/30/20 07:56 BP 148/79 04/30/20 06:00 Pulse Ox 92 04/30/20 07:57 04/29/20 04/30/20 04/30/20 22:59 06:59 14:59 Intake Total 461 / 461 Output Total 405 / 405 750 / 1155 Balance 56 / 56 -750 / -694 Weight last 48 hrs Weight 180 lb 12 oz Weight 180 lb 12 oz Physical Exam Narrative: EXAM NARRATIVE: GENERAL: Patient is very poorly rested poorly responding to verbal commands. Intermittent agitations. HEENT: Minimal pallor, icterus or lymphadenopathy.Oral cavity: There are no mucous membrane lesions. NECK: Trachea appears to be central. No masses noted. No JVD or thyromegaly appreciated. RESPIRATORY: Chest is symmetrical. No intercostals muscle retraction or any accessory muscle activation. There is no chest wall tenderness. Breath sounds are heard bilaterally. No rales or rhonchi heard. No evidence of any consolidation. Scattered crackles in the bases. Breath sounds are diminished in the bases BREASTS: Deferred. HEART: The heart sounds are normal. No S3 or S4. Ejection systolic murmur grade 3/6 at the base of the heart.. No pericardial rub ABDOMEN: No vessel pulsations or distention. No tenderness. No organomegaly appreciated. Bowel sounds are normally heard. : Deferred. RECTAL: Deferred. LYMPHATIC: No lymphadenopathy noted in the neck. EXTREMITIES: Trace edema with no cyanosis.. No clubbing. Peripheral pulses are palpated in fairly good volume and amplitude MUSCULOSKELETAL: No acute joint deformities or swelling SKIN: There are no significant rashes or ecchymosis NEUROPSYCHIATRIC: Intubated and sedated. Moves all extremities. Urinary Catheter Management^: Whitley: Cath Placed During This Visit: yes Reason for Continuing Indwelling Catheter: Accurate Measurement of Urinary Output in Critically Ill Patients Urinary Catheter Date of Insertion: 04/22/20 Urinary Catheter Time of Insertion: 18:43 Data : 04/30/20 08:38 04/30/20 08:38 Other Labs: Laboratory Last Values WBC 7.3 10^3/uL (4.0-10.0) 04/30/20 08:38 RBC 3.76 10^6/uL (4.1-5.3) L 04/30/20 08:38 Hgb 9.6 g/dL (11.7-16.6) L 04/30/20 08:38 Hct 33.4 % (42.0-52.0) L 04/30/20 08:38 MCV 88.8 fL (80-94) 04/30/20 08:38 MCH 25.5 pg (28.0-34.0) L 04/30/20 08:38 MCHC 28.7 g/dL (30.0-36.0) L 04/30/20 08:38 RDW 15.9 % (12.1-15.1) H 04/30/20 08:38 Plt Count 230 10^3/cmm (130-400) 04/30/20 08:38 MPV 9.1 fL (7.4-10.4) 04/30/20 08:38 Neut % (Auto) 71.9 % 04/30/20 08:38 Lymph % (Auto) 10.8 % 04/30/20 08:38 [place] % (Auto) 10.8 % 04/30/20 08:38 Eos % (Auto) 3.8 % 04/30/20 08:38 Baso % (Auto) 1.2 % 04/30/20 08:38 Neut # (Auto) 5.25 10^3/uL (1.8-7.7) 04/30/20 08:38 Lymph # (Auto) 0.8 10^3/uL (0.8-4.8) 04/30/20 08:38 [place] # (Auto) 0.8 10^3/uL (0.2-0.9) 04/30/20 08:38 Eos # (Auto) 0.3 10^3/uL (0.0-0.8) 04/30/20 08:38 Baso # (Auto) 0.1 10^3/uL (0.0-0.1) 04/30/20 08:38 Nucleated RBC % (auto) 0 % 04/30/20 08:38 Nucleated RBCs # 0.0 /100WBC 04/30/20 08:38 PT 15.50 SECONDS (12.1-14.9) H 04/27/20 03:40 INR 1.19 (0.8-1.2) 04/27/20 03:40 Specimen Type Arterial 04/25/20 14:45 Sample Site Radial, right 04/25/20 14:45 ABG pH 7.33 (7.35-7.45) L 04/25/20 14:45 ABG pCO2 35.3 mmHg (35-45) 04/25/20 14:45 ABG pO2 67.8 mmHg (80.0-100.0) L 04/25/20 14:45 ABG HCO3 18.6 mmol/L (22-26) L 04/25/20 14:45 ABG O2 Saturation 93.3 04/21/20 09:39 ABG Base Excess -6.7 mmol/L (-2.0-2.0) L 04/25/20 14:45 Lion Test Pos 04/25/20 14:45 A-a O2 Gradient 17.0 mmHg (5-10) H 04/22/20 23:20 Hematocrit 31.2 % (42-52) L 04/25/20 14:45 Hgb O2 Saturation 94.2 % (95-100) L 04/22/20 23:20 Carboxyhemoglobin 1.8 %THgb (0.4-20.1) 04/22/20 23:20 Methemoglobin 0.7 % (0.4-1.5) 04/22/20 23:20 Total Hemoglobin 8.9 g/dL (14-18) L 04/22/20 23:20 Sodium 143.0 mmol/L (131-143) 04/21/20 09:39 Potassium 4.6 mmol/L (3.5-5.0) 04/21/20 09:39 Glucose 149.0 mg/dL (70-115) H 04/21/20 09:39 Ionized Calcium 1.3 mmol/L (1.1-1.4) 04/21/20 09:39 O2 Delivery Device Vent 04/25/20 14:45 O2 Liters/Min 2.0 % 04/21/20 09:39 FiO2 35.0 % 04/25/20 14:45 Tidal Volume 0.40 04/25/20 14:45 PEEP 5.0 cmH20 04/25/20 14:45 Sanitation Truck Cleaner ID Jlg 04/25/20 14:45 Sodium 144 mmol/L (136-145) 04/30/20 08:38 Potassium 3.3 mmol/L (3.5-5.1) L 04/30/20 08:38 Chloride 100 mmol/L (98-107) 04/30/20 08:38 Carbon Dioxide 21 mmol/L (22-29) L 04/30/20 08:38 Anion Gap 26.3 (5-19) H 04/30/20 08:38 BUN 42 mg/dL (8-23) H 04/30/20 08:38 Creatinine 3.8 mg/dL (0.7-1.2) H 04/30/20 08:38 GFR Calculation Not Reportable 04/30/20 08:38 Glucose 143 mg/dL (65-115) H 04/30/20 08:38 POC Glucose 129 mg/dL (70-110) 04/30/20 07:10 Estimat Average Glucose 192 04/21/20 09:46 Hemoglobin A1c 8.3 % (4.0-6.0) H 04/21/20 09:46 Calculated Osmolality 311 mOsm/kg (285-295) H 04/30/20 08:38 Lactic Acid 0.8 mmol/L (0.5-2.2) 04/25/20 03:15 Calcium 9.0 mg/dL (8.5-10.5) 04/30/20 08:38 Phosphorus 5.0 mg/dL (2.5-4.5) H 04/29/20 05:48 Magnesium 2.6 mg/dL (1.7-2.3) H 04/26/20 03:16 Iron 27 ug/dL (59-158) L 04/24/20 04:34 TIBC 237 mcg/dl 04/24/20 04:34 % Saturation 11.3 % (20-50) L 04/24/20 04:34 Unsat Iron Binding 210 ug/dL (112-347) 04/24/20 04:34 Total Bilirubin 0.4 mg/dL (0.15-1.2) 04/30/20 08:38 AST 21 U/L (0-40) 04/30/20 08:38 ALT 16 U/L (0-41) 04/30/20 08:38 Alkaline Phosphatase 159 IU/L (40-130) H 04/30/20 08:38 Creatine Kinase 344 U/L (39-308) H* 04/25/20 03:15 Troponin T Gen 5 ng/L Cancelled 04/23/20 00:08 Troponin T Baseline 45 ng/L (0-15) H 04/23/20 00:08 Troponin T 120 Minute 47.99 ng/L (0-15) H 04/23/20 02:01 Delta Troponin T 2.99 ABS# (0-10) 04/23/20 02:01 Troponin T Hi Sens 6Hr 49.57 ng/L (0-15) H 04/23/20 06:44 Troponin T Hi Sens 6Hr Delta 4.57 ng/L (0-12) 04/23/20 06:44 C-Reactive Protein 34.8 mg/L (0.0-4.9) H 04/24/20 04:34 NT-Pro-B Natriuret Pep 3607 pg/mL (0-450) H 04/22/20 23:25 Total Protein 6.7 g/dL (6.6-8.7) 04/30/20 08:38 Albumin 3.4 g/dL (3.5-5.2) L 04/30/20 08:38 Globulin 3.3 g/dL (1.3-4.6) 04/30/20 08:38 Lipase 26 U/L (13-60) 04/21/20 09:46 Procalcitonin 0.35 ng/mL (0-0.5) 04/27/20 03:40 TSH 15.67 uIU/mL (0.27-4.20) H 04/21/20 09:46 Free T4 0.93 ng/dL (0.82-1.77) 04/22/20 05:37 Free T3 2.0 PG/ML (2.0-4.4) 04/22/20 05:37 Urine Color Yellow (Yellow) 04/21/20 11:24 Urine Appearance Clear (CLEAR) 04/21/20 11:24 Urine pH 5 (5-7) 04/21/20 11:24 Ur Specific [place] 1.010 (1.005-1.030) 04/21/20 11:24 Urine Protein 1+ (Negative) H 04/21/20 11:24 Urine Glucose (UA) Norm (Normal) 04/21/20 11:24 Urine Ketones Negative (Negative) 04/21/20 11:24 Urine Blood Neg (Negative) 04/21/20 11:24 Urine Nitrate Negative (Negative) 04/21/20 11:24 Urine Bilirubin Neg (Negative) 04/21/20 11:24 Urine Urobilinogen Norm mg/dL (Negative) 04/21/20 11:24 Ur Leukocyte Esterase Negative (Negative) 04/21/20 11:24 Urine RBC None /hpf (0-2) 04/21/20 11:24 Urine WBC None /hpf (0-5) 04/21/20 11:24 Ur Squamous Epith Cells 0-4 /hpf (0-5) H 04/21/20 11:24 Amorphous Sediment Not Reportable 04/21/20 11:24 Urine Bacteria Trace /hpf (NONE) 04/21/20 11:24 Hyaline Casts 0-4 /lpf H 04/21/20 11:24 Urine Mucus Trace /hpf 04/21/20 11:24 U Random Total Protein 274 mg/dL 04/22/20 20:05 Urine Creatinine 98 mg/dL (39-259) 04/22/20 20:05 Protein/Creatinin Ratio 2.80 mg/mg CR 04/22/20 20:05 Vancomycin Trough 13.0 ug/mL (10-15) 04/28/20 13:30 Hep Bs Antigen Non-reactive (Nonreactive) 04/27/20 03:40 Blood Type A Positive 04/21/20 14:47 Rho(D) Type Positive 04/21/20 14:47 Antibody Screen Negative 04/21/20 14:47 Crossmatch See Detail 04/21/20 14:47 A&P Assessment and plan (1) Acute on chronic diastolic (congestive) heart failure: Patient seems to have intermittent diastolic heart failure. He is on hemodialysis. The BUN/creatinine is slowly going up Status: Acute (2) Atrial fibrillation with rapid ventricular response: Currently on IV amiodarone. Telemetry shows normal sinus rhythm. Status: Resolved (3) Acute kidney injury superimposed on chronic kidney disease: Dialysis as per the nephrology service Status: Acute (4) Diabetes mellitus: Blood sugar seems to be fairly under control Status: Chronic Qualifiers: Diabetes mellitus complication status: with hyperglycemia Diabetes mellitus half-way insulin use: without intermediate project manager use Diabetes mellitus type: type 2 Qualified Code(s): E11.65 - Type 2 diabetes mellitus with hyperglycemia (5) Anemia: The hemoglobin seems to be fairly stable after the blood transfusion. 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
[2020-04-30] MEDS: eucerin cream 113 gm Jar 1 APPLIC TOPICAL ×2 (10:21→17:32)
[2020-04-30] MEDS: pantoprazole 40 mg SDV IVP ×2 (11:08→21:00)
[2020-04-30] MEDS: metoprolol tartrate 1 mg/1 mL SDV 5 mL 5 MG IV ×4 (14:03→23:58)
--- NOTE | 2020-04-30 14:04 | PC.NURSE ---
PRN metoprolol 5mg for elevated heart rate greater than 110, given for heart rate of 132.
--- NOTE | 2020-04-30 15:54 | P.PN_ITS ---
Subjective Subjective: Interval history: I am seeing him in follow up for his renal failure. No new issues overnight Still on bipap Medications: Reviewed: Yes Vitals/I&O/Wt Last Vital Signs Temp 98.3 F 04/30/20 12:18 Pulse 129 H 04/30/20 14:11 Resp 12 04/30/20 14:00 BP 112/68 04/30/20 14:00 Pulse Ox 96 04/30/20 14:11 04/30/20 04/30/20 04/30/20 06:59 14:59 22:59 Intake Total 50 / 511 Output Total 750 / 1155 800 / 800 Balance -700 / -644 -800 / -800 Weight last 48 hrs Weight 81.987 kg Weight 81.987 kg Physical Exam Const: COMMON NORMALS: no acute distress Resp: AUSCULTATION: crackles Cardio: COMMON NORMALS: S1 normal heart sound present and S2 normal heart sound present HEART SOUNDS: S1 normal heart sound present and S2 normal heart sound present GI: AUSCULTATION: Yes normoactive bowel sounds Extremity: GENERAL: Yes edema Skin: COMMON NORMALS: no rashes or lesions noted GENERAL SKIN EXAM: no rashes or lesions noted Urinary Catheter Management^: Whitley: Cath Placed During This Visit: yes Reason for Continuing Indwelling Catheter: Accurate Measurement of Urinary Output in Critically Ill Patients Urinary Catheter Date of Insertion: 04/22/20 Urinary Catheter Time of Insertion: 18:43 Data : 04/30/20 08:38 04/30/20 08:38 A&P Assessment and plan (1) Acute kidney injury superimposed on chronic kidney disease: Will plan hemodialysis on mon. Avoid new nephrotoxins & wide fluctuation in bp Status: Acute (2) Congestive heart failure: Currently on diuretics. 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
--- NOTE | 2020-04-30 16:06 | PC.SLP ---
The pt is unable to maintain alertness to participate in CHEMICAL SALES REPRESENTATIVE/dysphagia assessment.
--- NOTE | 2020-04-30 16:25 | DCPLANNER ---
Phoned Son; Joaquin - [phone] and re-explained the IM. He totally understands. Copy left in room as agreed.
[2020-04-30 17:22] LABS: Glucose Point of Care 130 mg/dL (70-110)
[2020-04-30 17:22] LABS: Glucose Point of Care 138 mg/dL (70-110)
--- NOTE | 2020-04-30 18:45 | PC.NURSE ---
All care and charting by Allyson Bolton, student nurse (also STEEPLE JACK) had direct supervision by this nurse.
--- NOTE | 2020-04-30 18:45 | PC.NURSE ---
Received report on patient from Linda CARRINGTON. Ana will be his 1:1 sitter fiona. Assumed care at this time.
--- NOTE | 2020-04-30 19:04 | PC.NURSE ---
Shift summary: Pt is alert to self only. He fidgets and tries to pull his clothes and monitoring and IVs off, He hums/ moans in a sing song tone. He does answer yes/no on occasion. He has kept his eyes tightly closed all day. P/O/ Meds were not administer today, pt unable. He needed PRN metoprolol IV for an elevated heart rate today. It did not improve it much. Dr Rogers notified, another 5mg dose of metoprolol ordered and given. Heart rate back down in 90's, Dr Candelaria not notified for further intervention. Urine ouput has improved 1075 of clear pale yellow urine noted. Technology Intern[employer] has ordered Hemodialysis for am.
--- NOTE | 2020-04-30 19:50 | PC.NURSE ---
Called and discussed with Dr Hull that patient is becoming more restless at this time. New order received.
[2020-04-30] MEDS: LORazepam 2 mg/mL INJ 1 mL IVP (20:01)
[2020-04-30] MEDS: trazodone 50 mg Tablet PO (21:00)
[2020-04-30] MEDS: hyDRALAzine 25 mg Tablet PO (21:00)
[2020-04-30] MEDS: atorvastatin 40 mg Tablet 20 MG PO (21:00)
[2020-04-30 21:11] LABS: Glucose Point of Care 127 mg/dL (70-110)
[2020-04-30] MEDS: dexmedetomidine 400 MCG in sodium chloride 0.9% (100 ml) 100 ML 8.5 MCG IV (21:58)
[2020-05-01] VITALS (33 sets, daily range): BP systolic 76–149; BP diastolic 38–89; PULSE 59–127; RESP 2–30; TEMP 36.3–37.6; O2SAT 87–99; BMI 27.4
[2020-05-01] MEDS: piperacillin-tazobactam 3.375 GM in sodium chloride 0.9% (plus) 50 ML IV ×2 (01:00→13:35)
[2020-05-01] MEDS: ipratropium-albuterol 3 mL Neb INHALATION ×6 (04:15→23:47)
[2020-05-01 04:56] LABS: Basophils # 0.1 10^3/uL (0.0-0.1); Basophils % 1.3 %; Eosinophils # 0.3 10^3/uL (0.0-0.8); Eosinophils % 4.3 %; Hematocrit 34.5 % (42.0-52.0); Hemoglobin 9.9 g/dL (11.7-16.6); Lymphocytes # 0.7 10^3/uL (0.8-4.8); Lymphocytes % 9.8 %; Mean Corpuscular HGB Conc 28.7 g/dL (30.0-36.0); Mean Corpuscular Hemoglobin 25.7 pg (28.0-34.0); Mean Corpuscular Volume 89.6 fL (80-94); Mean Platelet Volume 10.2 fL (7.4-10.4); Monocytes # 0.8 10^3/uL (0.2-0.9); Monocytes % 11.1 %; Neutrophils % 72.2 %; Nucleated Red Blood Cells % 0 %; Platelet Count 223 10^3/cmm (130-400); Red Blood Count 3.85 10^6/uL (4.1-5.3); White Blood Count 7.1 10^3/uL (4.0-10.0)
[2020-05-01 05:21] LABS: Alanine Aminotransferase 16 U/L (0-41); Alkaline Phosphatase 142 IU/L (40-130); Anion Gap 25.1 (5-19); Aspartate Amino Transferase 21 U/L (0-40); Blood Urea Nitrogen 45 mg/dL (8-23); Carbon Dioxide 23 mmol/L (22-29); Chloride 100 mmol/L (98-107); Globulin 3.4 g/dL (1.3-4.6); Glucose 162 mg/dL (65-115); Osmolality Calculated 315 mOsm/kg (285-295); Potassium 3.1 mmol/L (3.5-5.1); Sodium 145 mmol/L (136-145); Total Bilirubin 0.3 mg/dL (0.15-1.2); Total Protein 6.4 g/dL (6.6-8.7)
[2020-05-01] MEDS: FUROsemide 10 mg/mL SDV 10mL 80 MG IVP ×2 (05:36→17:37)
[2020-05-01 07:45] LABS: Glucose Point of Care 146 mg/dL (70-110)
--- NOTE | 2020-05-01 08:23 | XRR_ITS ---
PROCEDURE INFORMATION: Exam: XR Chest, 1 View Exam date and time: 05/01/2020 8:37 AM Age: 74 years old Clinical indication: Other: Confusion TECHNIQUE: Imaging protocol: XR of the chest Views: 1 view. COMPARISON: CR XR chest 1V portable [id number] 04/27/2020 8:44 AM FINDINGS: Tubes, catheters and devices: A dialysis catheter projects in satisfactory position. Lungs: There is pulmonary vascular congestion with hazy interstitial infiltrates greater on the right side. There is also small right pleural effusion. When compared to the previous study the pulmonary consolidation has significantly improved which is consistent with improved heart failure or volume overload. Pleural space: Right pleural effusion. Heart/Mediastinum: The cardiac silhouette is enlarged but unchanged. Bones/joints: Unremarkable. XR/XR chest 1V portable [id number] IMPRESSION: Improved pulmonary consolidation and effusion consistent with improving heart failure.
--- NOTE | 2020-05-01 08:25 | P.PN_ITS ---
Subjective Subjective: Interval history: Confused. Repeats good morning, but otherwise not answering questions or following commands. Attempts to open his eyes. Vitals/I&O/Wt Last Vital Signs Temp 97.9 F 05/01/20 05:00 Pulse 86 05/01/20 08:17 Resp 14 05/01/20 08:13 BP 109/72 05/01/20 06:00 Pulse Ox 92 05/01/20 08:13 04/30/20 05/01/20 05/01/20 22:59 06:59 14:59 Intake Total 668 / 668 87.375 / 755.375 Output Total 605 / 1405 1000 / 2405 Balance 63 / -737 -912.625 / -1649.625 Weight last 48 hrs Weight 81.987 kg Weight 81.987 kg Physical Exam Const: COMMON NORMALS: no acute distress ORIENTATION/CONSCIOUSNESS: Yes confused HENMT: COMMON NORMALS: oropharynx normal NOSE: Other nasal findings present (Wound on bridge of the nose covered by dressing. ) Neck/C-Spine: COMMON NORMALS: no JVD Chest: OTHER: HD catheter Resp: COMMON NORMALS: normal respiratory effort and clear to auscultation bila terally AUSCULTATION: clear to auscultation bilaterally Cardio: COMMON NORMALS: no JVD, S1 normal heart sound present, S2 normal heart sound present and No murmurs present (Cardio) RATE: tachycardic HEART SOUNDS: S1 normal heart sound present and S2 normal heart sound present GI: COMMON NORMALS: Normal to inspection, nondistended, normoactive bowel sounds present, Soft to palpation and non-tender PALPATION: Yes Soft to palpation Extremity: COMMON NORMALS: no joint enlargement and no pedal edema Neuro: COMMON NORMALS: moves all extremities Skin: COMMON NORMALS: no rashes or lesions noted GENERAL SKIN EXAM: no rashes or lesions noted Urinary Catheter Management^: Jaquez: Cath Placed During This Visit: yes Reason for Continuing Indwelling Catheter: Accurate Measurement of Urinary Ou tput in Critically Ill Patients Urinary Catheter Date of Insertion: 04/22/20 Urinary Catheter Time of Insertion: 18:43 Data : 05/01/20 04:18 05/01/20 04:18 A&P Assessment and plan (1) Acute on chronic diastolic (congestive) heart failure: Has remained on BiPAP. This morning we will see how he does with high flow cannula. Will check ABG. CXR. Pneumonia on CXR 04/27. No signs of sepsis. Acute diastolic CHF. Attempted hemodialysis morning, although blood pressure soft. I did press her in case becomes hypotensive. Overnight was started on Precedex due to sundowning. This was held this morning. Extubated on 04/25/20 Cardiology consult appreciated Appreciate nephrology and surgical consultation. Status: Acute (2) Acute encephalopathy: Acute encephalopathy superimposed on chronic dementia. He is usually more responsive from what I am told, able to answer questions follow commands. Dyspnea multifactorial secondary to underlying infection with pneumonia, will assess UA for possible UTI. Possible metabolic encephalopathy secondary to renal failure. Overnight received Ativan, started on Precedex. Home medications reviewed. We will check plain CT of the head. Cannot to treat pneumonia. Attempted hemodialysis today. Due to confusion did not do very well with speech therapy. Continue reevaluation. Status: Acute (3) Chronic kidney disease: Chronic kidney disease increasing BUN and creatinine Appreciate nephrology consultation Patient had dialysis catheter placed on 04/27/2020, s.p 2 HD sessions 05/01 soft blood pressure. Precedex was discontinued earlier in the morning. Mean arterial pressure 63. Added Levophed in case becomes hypotensive. Status: Chronic (4) Chronic anemia: Acute on chronic anemia also with iron deficiency Fecal occult blood positive this admission, no evidence of any active bleeding at this time, continue on PPI twice daily Consider further outpatient work-up once cardiopulmonary status improved Status: Acute (5) Ventricular tachycardia: Prior history of ventricular tachycardia, on amiodarone 200 mg daily, metoprolol 25mg, however unable to take due to inability to swallow medications Continue IV metoprolol PRN, may require esmolol drip Status: Resolved (6) High risk medication use: Status: Acute (7) Edema, peripheral: improved Status: Acute (8) Dyslipidemia: Continue home statin Status: Acute (9) Hypertension: Status: Acute Qualifiers: Hypertension type: essential hypertension Qualified Code(s): I10 - Essential (primary) hypertension (10) Dementia: With some sundowning at night Status: Chronic Qualifiers: Dementia type: Lewy body dementia Dementia behavioral disturbance: without behavioral disturbance Qualified Code(s): G31.83 - Dementia with Lewy bodies; F02.80 - Dementia in other diseases classified elsewhere without behavioral disturbance (11) Diabetes mellitus: Lantus held Sliding scale as needed Glipizide on hold Status: Chronic Qualifiers: Diabetes mellitus type: type 2 Diabetes mellitus terminal operator insulin use: without terminal operator use Diabetes mellitus complication status: with hyperglycemia Qualified Code(s): E11.65 - Type 2 diabetes mellitus with hyperglycemia (12) Atrial fibrillation: Paroxysmal atrial fibrillation with RVR. Heart rates variable, going into 110s-120s overnight. IV metoprolol scheduled due to inability to take p.o.. Amiodarone. Cardiology consultation appreciated Off of anticoagulation due to anemia Status: Acute Additional A&P Information Difficult jaquez placement: Jaquez placed by Dr. Del Real, appreciate consultation. Follow in office. Pneumonia: No sepsis. On vancomycin and Zosyn due to concern for pneumonia, however sputum culture showing mixed ray of the upper respiratory tract. Vancomycin was stopped. Positive blood culture: Showing coag negative staph, likely contaminant as only in 1 bottle, repeat blood cultures show no growth to date. Lewy body dementia DVT prophylaxis: SCDs, no pharmacologic prophylaxis due to anemia Diet: NPO, ST eval GI ppx: PPI CODE STATUS: Full code Dispo: trasition to LTAC Attestations Medical Necessity Statement*: Continue admission for assessment management of acute diastolic congestive heart failure, acute kidney injury, acute encephalopa thy, paroxysmal atrial fibrillation with RVR. Coding Level of Care Code Acute Mobile Ui/Ux Designer for [facility] Fwd Diagnoses Acute on chronic diastolic (congestive) heart failure I50.33 Acute encephalopathy G93.40 Chronic kidney disease N18.9 Chronic anemia D64.9 Ventricular tachycardia I47.2 High risk medication use Z79.899 Edema, peripheral R60.9 Dyslipidemia E78.5 Hypertension I10 Hypertension type: essential hypertension Dementia G31.83; F02.80 Dementia type: Lewy body dementia Dementia behavioral disturbance: without behavioral disturbance Diabetes mellitus E11.65 Diabetes mellitus type: type 2 Diabetes mellitus terminal operator insulin use: without skilled nursing use Diabetes mellitus complication status: with hyperglycemia Atrial fibrillation I48.91
--- NOTE | 2020-05-01 08:25 | CTR_ITS ---
PROCEDURE INFORMATION: Exam: CT Head Without Contrast Exam date and time: 05/01/2020 6:12 PM Age: 74 years old Clinical indication: Altered mental status/memory loss; Patient HX: Best images, PT would not stay still/was moaning, scan x2; Additional info: AMS TECHNIQUE: Imaging protocol: Computed tomography of the head without contrast. Radiation optimization: All CT scans at this facility use at least one of these dose optimization techniques: automated exposure control; mA and/or kV adjustment per patient size (includes targeted exams where dose is matched to clinical indication); or iterative reconstruction. COMPARISON: CT head wo con* [id number] 07/30/2019 12:48 PM RADIATION DOSE METRICS: Total DLP (mGy-cm): 1128.06 FINDINGS: Brain: No acute intracranial mass or bleed. Mild generalized cerebral atrophy. Mild cerebral hemisphere chronic white matter small vessel disease. Cerebral ventricles: No ventriculomegaly. Bones/joints: Unremarkable. No acute fracture. Paranasal sinuses: Visualized sinuses are unremarkable. No fluid levels. Mastoid air cells: Increasing fluid throughout multiple left mastoid air cells consistent with left-sided mastoiditis. Soft tissues: Unremarkable. CT/CT head wo con* [id number] IMPRESSION: 1.) Left-sided mastoiditis. 2.) Mild generalized cerebral atrophy and mild senescent white matter disease, chronic and unchanged. Radiation Dose CTDIVOL = (mGy): DLP = 1128.06 (mGy-cm)
--- NOTE | 2020-05-01 08:31 | PC.NURSE ---
Case management notified of possible discharge, home health needs to be arranged. Donita, case management, just called pt set up on [facility] home health. Good to go.
--- NOTE | 2020-05-01 09:40 | PC.CHAP ---
Pastoral Care Encounter/Spiritual Assessment Type of Contact [] Declined admissions director visit [] Patient/Family/Request visit [] Outpatient visit [] Follow-up visit [] Physician referral [] Code/Alert [] Routine visit [] Staff referral [] Actively dying [] Patient sleeping [] Family support [] [] Out of room [] Palliative care [] [x] Receiving care in room [] Pre-surgical visit [] Trauma [] Long length of stay [] ICU visit [] Other: Relational/Emotional Strength [] Patient feels connected with others/family/visitors/staff [] Distress [] Loneliness/isolation [] Abandonment Spirituality of Patient [] Person of Layla [] Attends Amish of their [place] [] Believes in Prayer [] Reads Bible or Mormon materials [] There are Spiritual issues to be addressed Recruitment Director Interventions [x] Prayer [] Active listening [] Non-anxious presence [] Spiritual/emotional support [] Crisis/trauma care [] Spiritual counseling [] Bereavement support [] Provided bereavement packet [] Provided Bible/devotional materials [] Provided toy/stuffed animal, coloring book to patient or family member [] Provided Communion [] Anointing/[place] [] Salvation [x] Completed spiritual assessment [] Other: Impact on Illness or Injury [] Angry [] Fearful [] Anxious [] Often cries [] Exhaustion [] Unable to work [] Unable to attend baptist [] Unable to walk/stand [] Unable to read [] Unable to drive [] Unable to eat/drink [] Unable to sleep [] Unable to be with family [] Patient intubated [] Other: Summary Time spent with patient
[2020-05-01] MEDS: eucerin cream 113 gm Jar 1 APPLIC TOPICAL ×2 (09:50→17:45)
--- NOTE | 2020-05-01 10:02 | PM.PN ---
Subjective Subjective: Interval history: Patient seems very agitated with poor verbal response. Intermittent atrial fibrillation with rapid ventricular rate on the telemetry. The blood pressure seems to be stable. He is remaining afebrile. Currently is undergoing hemodialysis. Medications: Reviewed: Yes Medication Review Details: Current Medications Acetaminophen (Tylenol) 650 mg PO Q6H PRN PRN Reason: Mild/Mod Pain Or Temp >/= 101 Last Admin: 04/29/20 18:06 Dose: 650 mg Documented by: Albuterol/Ipratropium (Duoneb) 3 ml INHALATION Q4H.RESPIRATORY [facility] Last Admin: 05/01/20 08:11 Dose: 3 ml Documented by: Amiodarone HCl (Cordarone) 200 mg PO DAILY [facility] Last Admin: 04/28/20 08:58 Dose: Not Given Documented by: Amlodipine Besylate (Norvasc) 10 mg PO DAILY [facility] Last Admin: 04/23/20 09:39 Dose: 10 mg Documented by: Atorvastatin Calcium (Lipitor) 20 mg PO BEDTIME [facility] Last Admin: 04/30/20 21:00 Dose: 20 mg Documented by: Bisacodyl (Dulcolax) 10 mg PO DAILY PRN PRN Reason: CONSTIPATION Dextrose (D50w) 25 ml IVP ONCE PRN; Protocol PRN Reason: hypoglycemia protocol Dextrose (D50w) 50 ml IVP PRN PRN; Protocol PRN Reason: hypoglycemia protocol Ferrous Sulfate (Ferrous Sulfate) 325 mg PO BIDWM [facility] Last Admin: 05/01/20 09:26 Dose: Not Given Documented by: Furosemide (Lasix) 80 mg IVP Q12H [facility] Last Admin: 05/01/20 05:36 Dose: 80 mg Documented by: Gabapentin (Neurontin) 400 mg PO DAILY [facility] Last Admin: 05/01/20 09:26 Dose: Not Given Documented by: Glucagon (Glucagen) 1 mg IM ONCE PRN; Protocol PRN Reason: Adult Acute Hypoglycemia Prot. Hydralazine HCl (Apresoline) 25 mg PO TID [facility] Last Admin: 05/01/20 09:26 Dose: Not Given Documented by: Dextrose (D5w) 500 mls @ 100 mls/hr IV ONCE PRN; Protocol PRN Reason: Adult Acute Hypoglycemia Prot Furosemide 100 mg/ Sodium (Chloride) 50 mls @ 0 mls/hr IV .Q0M [facility]; Protocol Last Admin: 04/27/20 00:43 Dose: 15 mg/hr, 7.5 mls/hr Documented by: Piperacillin Sod/Tazobactam (Sod 3.375 gm/ Sodium Chloride) 50 mls @ 12.5 mls/hr IV Q12H [facility]; Protocol Last Infusion: 05/01/20 05:37 Dose: Infused Documented by: Amiodarone HCl 900 mg/Dextrose/ IV Miscellaneous Supplies 518 mls @ 0 mls/hr IV .Q0M [facility]; Protocol Last Admin: 04/30/20 22:29 Dose: 0.5 mg/min, 17.3 mls/hr Documented by: Dexmedetomidine HCl 400 mcg/ (Sodium Chloride) 104 mls @ 0 mls/hr IV .Q0M [facility]; Protocol Last Titration: 05/01/20 03:52 Dose: 0.3 mcg/kg/hr, 6.4 mls/hr Documented by: Norepinephrine Bitartrate 4 mg (/ Dextrose) 254 mls @ 0 mls/hr IV .Q0M [facility]; Protocol Lidocaine HCl 5 ml/ Potassium (Chloride) 105 mls @ 50 mls/hr IV ONCE ONE Stop: 05/01/20 11:05 Insulin Aspart (Novolog) 0 unit SUBCUT BEDTIME [facility]; Protocol Last Admin: 04/30/20 21:00 Dose: Not Given Documented by: Insulin Aspart (Novolog) 0 unit SUBCUT TIDWM [facility]; Protocol Last Admin: 05/01/20 07:46 Dose: Not Given Documented by: Isosorbide Mononitrate (Imdur) 60 mg PO QAM [facility] Last Admin: 05/01/20 05:39 Dose: Not Given Documented by: Metolazone (Zaroxolyn) 5 mg PO DAILY [facility] Last Admin: 05/01/20 09:27 Dose: Not Given Documented by: Metoprolol Tartrate (Lopressor) 25 mg PO BID [facility] Last Admin: 04/26/20 08:11 Dose: Not Given Documented by: Metoprolol Tartrate (Metoprolol Tartrate) 5 mg IV Q4H PRN PRN Reason: HR greater than 110 Last Admin: 04/30/20 23:58 Dose: 5 mg Documented by: Multi-Ingredient Ointment (Eucerin) 1 applic TOPICAL BID [facility] Last Admin: 05/01/20 09:50 Dose: 1 applic Documented by: Naloxone HCl (Narcan) 0.1 mg IVP Q2M PRN PRN Reason: OPIATERV Ondansetron HCl (Zofran) 4 mg IVP Q8H PRN PRN Reason: vomiting, or N/V if npo Pantoprazole Sodium (Protonix) 40 mg IVP Q12H [facility] Last Admin: 04/30/20 21:00 Dose: 40 mg Documented by: Potassium Chloride (Potassium Chloride Oral Liquid) 10 meq PO DAILY [facility] Last Admin: 05/01/20 09:27 Dose: Not Given Documented by: Trazodone HCl (Desyrel) 50 mg PO BEDTIME [facility] Last Admin: 04/30/20 21:00 Dose: 50 mg Documented by: Vitals/I&O/Wt Last Vital Signs Temp 97.9 F 05/01/20 05:00 Pulse 86 05/01/20 08:17 Resp 14 05/01/20 08:13 BP 109/72 05/01/20 06:00 Pulse Ox 92 05/01/20 08:13 04/30/20 05/01/20 05/01/20 22:59 06:59 14:59 Intake Total 668 / 668 87.375 / 755.375 Output Total 605 / 1405 1000 / 2405 Balance 63 / -737 -912.625 / -1649.625 Weight last 48 hrs Weight 180 lb 12 oz Weight 180 lb 12 oz Physical Exam Narrative: EXAM NARRATIVE: GENERAL: Patient is agitated and poorly responding to commands. Intermittent agitations. HEENT: Minimal pallor, icterus or lymphadenopathy.Oral cavity: There are no mucous membrane lesions. NECK: Trachea appears to be central. No masses noted. No JVD or thyromegaly appreciated. RESPIRATORY: Chest is symmetrical. No intercostals muscle retraction or any accessory muscle activation. There is no chest wall tenderness. Breath sounds are heard bilaterally. No rales or rhonchi heard. No evidence of any consolidation. Scattered crackles in the bases. Breath sounds are diminished in the bases BREASTS: Deferred. HEART: The heart sounds are normal. No S3 or S4. Ejection systolic murmur grade 3/6 at the base of the heart.. No pericardial rub ABDOMEN: No vessel pulsations or distention. No tenderness. No organomegaly appreciated. Bowel sounds are normally heard. : Deferred. RECTAL: Deferred. LYMPHATIC: No lymphadenopathy noted in the neck. EXTREMITIES: Trace edema with no cyanosis.. No clubbing. Peripheral pulses are palpated in fairly good volume and amplitude MUSCULOSKELETAL: No acute joint deformities or swelling SKIN: There are no significant rashes or ecchymosis NEUROPSYCHIATRIC: As mentioned above Urinary Catheter Management^: Whitley: Cath Placed During This Visit: yes Reason for Continuing Indwelling Catheter: Accurate Measurement of Urinary Output in Critically Ill Patients Urinary Catheter Date of Insertion: 04/22/20 Urinary Catheter Time of Insertion: 18:43 Data : 05/01/20 04:18 05/01/20 04:18 Other Labs: Laboratory Last Values WBC 7.1 10^3/uL (4.0-10.0) 05/01/20 04:18 RBC 3.85 10^6/uL (4.1-5.3) L 05/01/20 04:18 Hgb 9.9 g/dL (11.7-16.6) L 05/01/20 04:18 Hct 34.5 % (42.0-52.0) L 05/01/20 04:18 MCV 89.6 fL (80-94) 05/01/20 04:18 MCH 25.7 pg (28.0-34.0) L 05/01/20 04:18 MCHC 28.7 g/dL (30.0-36.0) L 05/01/20 04:18 RDW 16.0 % (12.1-15.1) H 05/01/20 04:18 Plt Count 223 10^3/cmm (130-400) 05/01/20 04:18 MPV 10.2 fL (7.4-10.4) 05/01/20 04:18 Neut % (Auto) 72.2 % 05/01/20 04:18 Lymph % (Auto) 9.8 % 05/01/20 04:18 Clarke % (Auto) 11.1 % 05/01/20 04:18 Eos % (Auto) 4.3 % 05/01/20 04:18 Baso % (Auto) 1.3 % 05/01/20 04:18 Neut # (Auto) 5.10 10^3/uL (1.8-7.7) 05/01/20 04:18 Lymph # (Auto) 0.7 10^3/uL (0.8-4.8) L 05/01/20 04:18 Clarke # (Auto) 0.8 10^3/uL (0.2-0.9) 05/01/20 04:18 Eos # (Auto) 0.3 10^3/uL (0.0-0.8) 05/01/20 04:18 Baso # (Auto) 0.1 10^3/uL (0.0-0.1) 05/01/20 04:18 Nucleated RBC % (auto) 0 % 05/01/20 04:18 Nucleated RBCs # 0.0 /100WBC 05/01/20 04:18 PT 15.50 SECONDS (12.1-14.9) H 04/27/20 03:40 INR 1.19 (0.8-1.2) 04/27/20 03:40 Specimen Type Arterial 04/25/20 14:45 Sample Site Radial, right 04/25/20 14:45 ABG pH 7.33 (7.35-7.45) L 04/25/20 14:45 ABG pCO2 35.3 mmHg (35-45) 04/25/20 14:45 ABG pO2 67.8 mmHg (80.0-100.0) L 04/25/20 14:45 ABG HCO3 18.6 mmol/L (22-26) L 04/25/20 14:45 ABG O2 Saturation 93.3 04/21/20 09:39 ABG Base Excess -6.7 mmol/L (-2.0-2.0) L 04/25/20 14:45 Lion Test Pos 04/25/20 14:45 A-a O2 Gradient 17.0 mmHg (5-10) H 04/22/20 23:20 Hematocrit 31.2 % (42-52) L 04/25/20 14:45 Hgb O2 Saturation 94.2 % (95-100) L 04/22/20 23:20 Carboxyhemoglobin 1.8 %THgb (0.4-20.1) 04/22/20 23:20 Methemoglobin 0.7 % (0.4-1.5) 04/22/20 23:20 Total Hemoglobin 8.9 g/dL (14-18) L 04/22/20 23:20 Sodium 143.0 mmol/L (131-143) 04/21/20 09:39 Potassium 4.6 mmol/L (3.5-5.0) 04/21/20 09:39 Glucose 149.0 mg/dL (70-115) H 04/21/20 09:39 Ionized Calcium 1.3 mmol/L (1.1-1.4) 04/21/20 09:39 O2 Delivery Device Vent 04/25/20 14:45 O2 Liters/Min 2.0 % 04/21/20 09:39 FiO2 35.0 % 04/25/20 14:45 Tidal Volume 0.40 04/25/20 14:45 PEEP 5.0 cmH20 04/25/20 14:45 Arc And Gas Welder ID Jlg 04/25/20 14:45 Sodium 145 mmol/L (136-145) 05/01/20 04:18 Potassium 3.1 mmol/L (3.5-5.1) L 05/01/20 04:18 Chloride 100 mmol/L (98-107) 05/01/20 04:18 Carbon Dioxide 23 mmol/L (22-29) 05/01/20 04:18 Anion Gap 25.1 (5-19) H 05/01/20 04:18 BUN 45 mg/dL (8-23) H 05/01/20 04:18 Creatinine 4.1 mg/dL (0.7-1.2) H 05/01/20 04:18 GFR Calculation Not Reportable 05/01/20 04:18 Glucose 162 mg/dL (65-115) H 05/01/20 04:18 POC Glucose 146 mg/dL (70-110) 05/01/20 07:28 Estimat Average Glucose 192 04/21/20 09:46 Hemoglobin A1c 8.3 % (4.0-6.0) H 04/21/20 09:46 Calculated Osmolality 315 mOsm/kg (285-295) H 05/01/20 04:18 Lactic Acid 0.8 mmol/L (0.5-2.2) 04/25/20 03:15 Calcium 9.0 mg/dL (8.5-10.5) 05/01/20 04:18 Phosphorus 5.0 mg/dL (2.5-4.5) H 04/29/20 05:48 Magnesium 2.6 mg/dL (1.7-2.3) H 04/26/20 03:16 Iron 27 ug/dL (59-158) L 04/24/20 04:34 TIBC 237 mcg/dl 04/24/20 04:34 % Saturation 11.3 % (20-50) L 04/24/20 04:34 Unsat Iron Binding 210 ug/dL (112-347) 04/24/20 04:34 Total Bilirubin 0.3 mg/dL (0.15-1.2) 05/01/20 04:18 AST 21 U/L (0-40) 05/01/20 04:18 ALT 16 U/L (0-41) 05/01/20 04:18 Alkaline Phosphatase 142 IU/L (40-130) H 05/01/20 04:18 Creatine Kinase 344 U/L (39-308) H* 04/25/20 03:15 Troponin T Gen 5 ng/L Cancelled 04/23/20 00:08 Troponin T Baseline 45 ng/L (0-15) H 04/23/20 00:08 Troponin T 120 Minute 47.99 ng/L (0-15) H 04/23/20 02:01 Delta Troponin T 2.99 ABS# (0-10) 04/23/20 02:01 Troponin T Hi Sens 6Hr 49.57 ng/L (0-15) H 04/23/20 06:44 Troponin T Hi Sens 6Hr Delta 4.57 ng/L (0-12) 04/23/20 06:44 C-Reactive Protein 34.8 mg/L (0.0-4.9) H 04/24/20 04:34 NT-Pro-B Natriuret Pep 3607 pg/mL (0-450) H 04/22/20 23:25 Total Protein 6.4 g/dL (6.6-8.7) L 05/01/20 04:18 Albumin 3.0 g/dL (3.5-5.2) L 05/01/20 04:18 Globulin 3.4 g/dL (1.3-4.6) 05/01/20 04:18 Lipase 26 U/L (13-60) 04/21/20 09:46 Procalcitonin 0.35 ng/mL (0-0.5) 04/27/20 03:40 TSH 15.67 uIU/mL (0.27-4.20) H 04/21/20 09:46 Free T4 0.93 ng/dL (0.82-1.77) 04/22/20 05:37 Free T3 2.0 PG/ML (2.0-4.4) 04/22/20 05:37 Urine Color Yellow (Yellow) 04/21/20 11:24 Urine Appearance Clear (CLEAR) 04/21/20 11:24 Urine pH 5 (5-7) 04/21/20 11:24 Ur Specific [place] 1.010 (1.005-1.030) 04/21/20 11:24 Urine Protein 1+ (Negative) H 04/21/20 11:24 Urine Glucose (UA) Norm (Normal) 04/21/20 11:24 Urine Ketones Negative (Negative) 04/21/20 11:24 Urine Blood Neg (Negative) 04/21/20 11:24 Urine Nitrate Negative (Negative) 04/21/20 11:24 Urine Bilirubin Neg (Negative) 04/21/20 11:24 Urine Urobilinogen Norm mg/dL (Negative) 04/21/20 11:24 Ur Leukocyte Esterase Negative (Negative) 04/21/20 11:24 Urine RBC None /hpf (0-2) 04/21/20 11:24 Urine WBC None /hpf (0-5) 04/21/20 11:24 Ur Squamous Epith Cells 0-4 /hpf (0-5) H 04/21/20 11:24 Amorphous Sediment Not Reportable 04/21/20 11:24 Urine Bacteria Trace /hpf (NONE) 04/21/20 11:24 Hyaline Casts 0-4 /lpf H 04/21/20 11:24 Urine Mucus Trace /hpf 04/21/20 11:24 U Random Total Protein 274 mg/dL 04/22/20 20:05 Urine Creatinine 98 mg/dL (39-259) 04/22/20 20:05 Protein/Creatinin Ratio 2.80 mg/mg CR 04/22/20 20:05 Vancomycin Trough 13.0 ug/mL (10-15) 04/28/20 13:30 Hep Bs Antigen Non-reactive (Nonreactive) 04/27/20 03:40 Blood Type A Positive 04/21/20 14:47 Rho(D) Type Positive 04/21/20 14:47 Antibody Screen Negative 04/21/20 14:47 Crossmatch See Detail 04/21/20 14:47 A&P Assessment and plan (1) Acute on chronic diastolic (congestive) heart failure: Patient seems to have intermittent diastolic heart failure. Currently he is on dialysis. Status: Acute (2) Atrial fibrillation with rapid ventricular response: Currently on IV amiodarone. May continue on the same. Status: Resolved (3) Acute kidney injury superimposed on chronic kidney disease: Dialysis as per the nephrology service Status: Acute (4) Diabetes mellitus: Blood sugar seems to be fairly under control Status: Chronic Qualifiers: Diabetes mellitus type: type 2 Diabetes mellitus watermelon inspector insulin use: without watermelon inspector use Diabetes mellitus complication status: with hyperglycemia Qualified Code(s): E11.65 - Type 2 diabetes mellitus with hyperglycemia (5) Anemia: The hemoglobin seems to be fairly stable after the blood transfusion. Status: Acute Qualifiers: Anemia type: iron deficiency Iron deficiency anemia type: chronic blood loss Qualified Code(s): D50.0 - Iron deficiency anemia secondary to blood loss (chronic) Additional A&P Information Other problems are as outlined before. Patient may be given IV metoprolol 5 mg every 6 hours as needed for A. fib with rapid ventricular rate. Attestations Medical Necessity Statement*: Disposition as per the primary Coding Level of Care Code Acute State Comptroller for [facility] Fwd Diagnoses Acute on chronic diastolic (congestive) heart failure I50.33 Atrial fibrillation with rapid ventricular response I48.91 Acute kidney injury superimposed on chronic kidney disease N17.9; N18.9 Diabetes mellitus E11.65 Diabetes mellitus type: type 2 Diabetes mellitus watermelon inspector insulin use: without assisted use Diabetes mellitus complication status: with hyperglycemia Anemia D50.0 Anemia type: iron deficiency Iron deficiency anemia type: chronic blood loss
--- NOTE | 2020-05-01 10:29 | PC.OT ---
OT note: Patient in dialysis at this time, will attempt again as able.
[2020-05-01] MEDS: pantoprazole 40 mg SDV IVP ×2 (11:15→21:10)
[2020-05-01] MEDS: lidocaine 1% 5 ML in potassium chloride premix 100 ML 50 ML IV (11:28)
[2020-05-01] MEDS: heparin, porcine 1,000 unit/mL INJ 10 mL HE (11:35)
--- NOTE | 2020-05-01 12:16 | PM.PN ---
Subjective Subjective: Interval history: Awake and murmuring, more responsive today. Just completed dialysis Good urine output in response to Lasix Medications: Reviewed: Yes Medication Review Details: Current Medications Acetaminophen (Tylenol) 650 mg PO Q6H PRN PRN Reason: Mild/Mod Pain Or Temp >/= 101 Last Admin: 04/29/20 18:06 Dose: 650 mg Documented by: Albuterol/Ipratropium (Duoneb) 3 ml INHALATION Q4H.RESPIRATORY [facility] Last Admin: 05/01/20 08:11 Dose: 3 ml Documented by: Amiodarone HCl (Cordarone) 200 mg PO DAILY [facility] Last Admin: 04/28/20 08:58 Dose: Not Given Documented by: Amlodipine Besylate (Norvasc) 10 mg PO DAILY [facility] Last Admin: 04/23/20 09:39 Dose: 10 mg Documented by: Atorvastatin Calcium (Lipitor) 20 mg PO BEDTIME [facility] Last Admin: 04/30/20 21:00 Dose: 20 mg Documented by: Bisacodyl (Dulcolax) 10 mg PO DAILY PRN PRN Reason: CONSTIPATION Dextrose (D50w) 25 ml IVP ONCE PRN; Protocol PRN Reason: hypoglycemia protocol Dextrose (D50w) 50 ml IVP PRN PRN; Protocol PRN Reason: hypoglycemia protocol Ferrous Sulfate (Ferrous Sulfate) 325 mg PO BIDWM [facility] Last Admin: 05/01/20 09:26 Dose: Not Given Documented by: Furosemide (Lasix) 80 mg IVP Q12H [facility] Last Admin: 05/01/20 05:36 Dose: 80 mg Documented by: Gabapentin (Neurontin) 400 mg PO DAILY [facility] Last Admin: 05/01/20 09:26 Dose: Not Given Documented by: Glucagon (Glucagen) 1 mg IM ONCE PRN; Protocol PRN Reason: Adult Acute Hypoglycemia Prot. Hydralazine HCl (Apresoline) 25 mg PO TID [facility] Last Admin: 05/01/20 09:26 Dose: Not Given Documented by: Dextrose (D5w) 500 mls @ 100 mls/hr IV ONCE PRN; Protocol PRN Reason: Adult Acute Hypoglycemia Prot Furosemide 100 mg/ Sodium (Chloride) 50 mls @ 0 mls/hr IV .Q0M [facility]; Protocol Last Admin: 04/27/20 00:43 Dose: 15 mg/hr, 7.5 mls/hr Documented by: Piperacillin Sod/Tazobactam (Sod 3.375 gm/ Sodium Chloride) 50 mls @ 12.5 mls/hr IV Q12H [facility]; Protocol Last Infusion: 05/01/20 05:37 Dose: Infused Documented by: Amiodarone HCl 900 mg/Dextrose/ IV Miscellaneous Supplies 518 mls @ 0 mls/hr IV .Q0M [facility]; Protocol Last Admin: 04/30/20 22:29 Dose: 0.5 mg/min, 17.3 mls/hr Documented by: Dexmedetomidine HCl 400 mcg/ (Sodium Chloride) 104 mls @ 0 mls/hr IV .Q0M [facility]; Protocol Last Titration: 05/01/20 03:52 Dose: 0.3 mcg/kg/hr, 6.4 mls/hr Documented by: Norepinephrine Bitartrate 4 mg (/ Dextrose) 254 mls @ 0 mls/hr IV .Q0M [facility]; Protocol Lidocaine HCl 5 ml/ Potassium (Chloride) 105 mls @ 50 mls/hr IV ONCE ONE Stop: 05/01/20 11:05 Insulin Aspart (Novolog) 0 unit SUBCUT BEDTIME [facility]; Protocol Last Admin: 04/30/20 21:00 Dose: Not Given Documented by: Insulin Aspart (Novolog) 0 unit SUBCUT TIDWM [facility]; Protocol Last Admin: 05/01/20 07:46 Dose: Not Given Documented by: Isosorbide Mononitrate (Imdur) 60 mg PO QAM [facility] Last Admin: 05/01/20 05:39 Dose: Not Given Documented by: Metolazone (Zaroxolyn) 5 mg PO DAILY [facility] Last Admin: 05/01/20 09:27 Dose: Not Given Documented by: Metoprolol Tartrate (Lopressor) 25 mg PO BID [facility] Last Admin: 04/26/20 08:11 Dose: Not Given Documented by: Metoprolol Tartrate (Metoprolol Tartrate) 5 mg IV Q4H PRN PRN Reason: HR greater than 110 Last Admin: 04/30/20 23:58 Dose: 5 mg Documented by: Multi-Ingredient Ointment (Eucerin) 1 applic TOPICAL BID [facility] Last Admin: 05/01/20 09:50 Dose: 1 applic Documented by: Naloxone HCl (Narcan) 0.1 mg IVP Q2M PRN PRN Reason: OPIATERV Ondansetron HCl (Zofran) 4 mg IVP Q8H PRN PRN Reason: vomiting, or N/V if npo Pantoprazole Sodium (Protonix) 40 mg IVP Q12H [facility] Last Admin: 04/30/20 21:00 Dose: 40 mg Documented by: Potassium Chloride (Potassium Chloride Oral Liquid) 10 meq PO DAILY [facility] Last Admin: 05/01/20 09:27 Dose: Not Given Documented by: Trazodone HCl (Desyrel) 50 mg PO BEDTIME [facility] Last Admin: 04/30/20 21:00 Dose: 50 mg Documented by: Vitals/I&O/Wt Last Vital Signs Temp 97.4 F L 05/01/20 08:00 Pulse 106 H 05/01/20 10:30 Resp 29 H 05/01/20 10:30 BP 130/84 05/01/20 10:30 Pulse Ox 92 05/01/20 10:30 04/30/20 05/01/20 05/01/20 22:59 06:59 14:59 Intake Total 668 / 668 87.375 / 755.375 32.853 / 32.853 Output Total 605 / 1405 1000 / 2405 Balance 63 / -737 -912.625 / -1649.625 32.853 / 32.853 Weight last 48 hrs Weight 81.987 kg Weight 81.987 kg Physical Exam Narrative: EXAM NARRATIVE: Constitutional: Drowsy, on BIPAP HEENT: Wet mucosa, no jvp, non icteric Lungs: Bilaterally clear coarse, diminished all lung zones CVS: S1 S2, no murmurs Abdo: Soft, BS ok Ext 4: global edema, peripheral perfusion with no cyanosis Neurological: Grossly non-focal Urinary Catheter Management^: Whitley: Cath Placed During This Visit: yes Reason for Continuing Indwelling Catheter: Accurate Measurement of Urinary Output in Critically Ill Patients Urinary Catheter Date of Insertion: 04/22/20 Urinary Catheter Time of Insertion: 18:43 Data : 05/01/20 04:18 05/01/20 04:18 A&P Additional A&P Information 1. JED on CKD Consistent with CRS Dialyzed today Eval in am, possible dialysis Friday Strict ins and outs, avoid usual nephrotoxic medication. 2. Lytes - recheck K later today 3. Hypertension, Afib Hemodynamics remain stable 4. Anemia - serial H/H, low iron sat, s/p venofer 5. 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
[2020-05-01] MEDS: LORazepam 2 mg/mL INJ 1 mL 0.5 MG IVP (14:18)
[2020-05-01] MEDS: dexmedetomidine 400 MCG in sodium chloride 0.9% (100 ml) 100 ML 6.4 MCG IV (17:29)
[2020-05-01 18:02] LABS: Glucose Point of Care 122 mg/dL (70-110)
--- NOTE | 2020-05-01 18:52 | PC.NURSE ---
Shift summary: Pt very restless today pulling at wires and IV lines. He continued to hum/moan in a sing song manner. Precedex mcg/kg/min at 0.5, Amiodarone gtt at 0.5mcg/min. Dr Taylor notified restraints, Ativan PRN ordered. Pt already has one on one sitter. Hemodialysis done today, 2000ml out, B/P decreased during and Precedex had to be stopped to finish the dialysis. Iv in left forearm tender, pt kept saying oww when touched Removed both IVs on left. Started new IV in right forearm and wrist. Pt is alert to self, able to tell his name when asked. He also answered yes/no questions. Dressing changed on his pressure injury on his nose. No changes in the pressure injury on his bottom. We have tried to keep pt turned on his sides but he will roll/scoot around and end up on his back frequently. Pt finally settled down enough at end of this shift to take him to CT as ordered this am. Urine output minimal this shift, 360 ml, slightly cloudy urine. Urine sent to lab.About 1750 pt converted out of a-fib to sinus rhythm with BBB. No visitors today.
[2020-05-01 19:55] LABS: Glucose Urine UA Norm (Normal); Ketones Urine 1+ (Negative); Protein Urine 2+ (Negative); Specific Gravity, Urine 1.015 (1.005-1.030); Urine Appearance Hazy (CLEAR); Urine Color Yellow (Yellow); pH Urine 5 (5-7)
[2020-05-01 19:56] LABS: Add Urine Culture? No; Add Urine Microscopic? YES; Amorphous Sediment Urine 3+ /hpf; Bacteria Urine 2+ /hpf; Bilirubin Urine Neg (Negative); Blood Urine 3+ (Negative); Leukocyte Esterase Urine Negative (Negative); Nitrate Urine Negative (Negative); RBC Urine 25-40 /hpf (0-2); Urobilinogen Urine Neg (Negative); WBC Urine 0-4 /hpf (0-5)
[2020-05-01 20:49] LABS: Glucose Point of Care 129 mg/dL (70-110)
[2020-05-02] VITALS (25 sets, daily range): BP systolic 117–143; BP diastolic 58–88; PULSE 53–90; RESP 16–26; TEMP 36.3–36.4; O2SAT 89–100
[2020-05-02] MEDS: LORazepam 2 mg/mL INJ 1 mL 0.5 MG IVP ×2 (00:33→20:47)
[2020-05-02] MEDS: piperacillin-tazobactam 3.375 GM in sodium chloride 0.9% (plus) 50 ML IV ×2 (00:38→13:23)
[2020-05-02] MEDS: HYDROmorphone 1 mg/mL INJ 1 mL 2 MG IVP (02:55)
[2020-05-02] MEDS: ipratropium-albuterol 3 mL Neb INHALATION ×5 (03:13→19:56)
[2020-05-02 05:02] LABS: ABG PCO2 43.5 mmHg (35-45); ABG PH Result 7.34 (7.35-7.45); Arterial Blood Gas Hematocrit 30.8 % (42-52); Base Excess ABG -2.1 mmol/L (-2.0-2.0); Blood Gas Allen Test Pos; Blood Gas Operator Identificat JB; Blood Gas Sample Site Brachial, right; Blood Gas Sample Type Arterial; HCO3 ABG 23.6 mmol/L (22-26); Oxygen Device NC; PO2 ABG 58.9 mmHg (80.0-100.0)
[2020-05-02] MEDS: FUROsemide 10 mg/mL SDV 10mL 80 MG IVP ×2 (05:10→21:42)
[2020-05-02 05:34] LABS: Basophils # 0.1 10^3/uL (0.0-0.1); Basophils % 1.2 %; Eosinophils # 0.3 10^3/uL (0.0-0.8); Eosinophils % 4.4 %; Hematocrit 35.2 % (42.0-52.0); Hemoglobin 10.1 g/dL (11.7-16.6); Lymphocytes # 0.9 10^3/uL (0.8-4.8); Lymphocytes % 11.5 %; Mean Corpuscular HGB Conc 28.7 g/dL (30.0-36.0); Mean Corpuscular Hemoglobin 25.8 pg (28.0-34.0); Mean Corpuscular Volume 89.8 fL (80-94); Mean Platelet Volume 10.4 fL (7.4-10.4); Monocytes # 0.7 10^3/uL (0.2-0.9); Monocytes % 9.2 %; Neutrophils # 5.59 10^3/uL (1.8-7.7); Neutrophils % 72.4 %; Nucleated Red Blood Cells % 0 %; Platelet Count 223 10^3/cmm (130-400); Red Blood Count 3.92 10^6/uL (4.1-5.3); Red Cell Distribution Width 15.9 % (12.1-15.1); White Blood Count 7.7 10^3/uL (4.0-10.0)
[2020-05-02 05:56] LABS: Alanine Aminotransferase 16 U/L (0-41); Albumin Level 3.3 g/dL (3.5-5.2); Alkaline Phosphatase 136 IU/L (40-130); Anion Gap 23.1 (5-19); Aspartate Amino Transferase 22 U/L (0-40); Blood Urea Nitrogen 25 mg/dL (8-23); Calcium 9.3 mg/dL (8.5-10.5); Carbon Dioxide 22 mmol/L (22-29); Chloride 97 mmol/L (98-107); Globulin 3.7 g/dL (1.3-4.6); Glucose 152 mg/dL (65-115); Osmolality Calculated 295 mOsm/kg (285-295); Potassium 3.1 mmol/L (3.5-5.1); Sodium 139 mmol/L (136-145); Total Bilirubin 0.4 mg/dL (0.15-1.2)
[2020-05-02 07:23] LABS: Glucose Point of Care 88 mg/dL (70-110)
--- NOTE | 2020-05-02 09:41 | PC.CHAP ---
Pastoral Care Encounter/Spiritual Assessment Type of Contact [] Declined side gluer visit [] Patient/Family/Request visit [] Outpatient visit [] Follow-up visit [] Physician referral [] Code/Alert [] Routine visit [] Staff referral [] Actively dying [] Patient sleeping [] Family support [] [] Out of room [] Palliative care [] [] Receiving care in room [] Pre-surgical visit [] Trauma [] Long length of stay [] ICU visit [] Other: Relational/Emotional Strength [] Patient feels connected with others/family/visitors/staff [] Distress [] Loneliness/isolation [] Abandonment Spirituality of Patient [] Person of Layla [] Attends Evangelical of their Layla [] Believes in Prayer [] Reads Bible or Baptism materials [] There are Spiritual issues to be addressed Pattern Wheel Maker Interventions [x] Prayer [] Active listening [] Non-anxious presence [] Spiritual/emotional support [] Crisis/trauma care [] Spiritual counseling [] Bereavement support [] Provided bereavement packet [] Provided Bible/devotional materials [] Provided toy/stuffed animal, coloring book to patient or family member [] Provided Communion [] Anointing/[place] [] Salvation [x] Completed spiritual assessment [] Other: Impact on Illness or Injury [] Angry [] Fearful [] Anxious [] Often cries [] Exhaustion [] Unable to work [] Unable to attend latter day [] Unable to walk/stand [] Unable to read [] Unable to drive [] Unable to eat/drink [] Unable to sleep [] Unable to be with family [] Patient intubated [] Other: Summary patient has setter Time spent with patient 5 min
[2020-05-02 09:44] LABS: Glucose Point of Care 139 mg/dL (70-110)
[2020-05-02] MEDS: eucerin cream 113 gm Jar 1 APPLIC TOPICAL ×2 (09:48→17:27)
[2020-05-02] MEDS: pantoprazole 40 mg SDV IVP ×2 (09:49→20:19)
--- NOTE | 2020-05-02 12:25 | PC.SOCIAL ---
IMM Updated Page 2 of IMM updated with patient's son by phone. Initialed, dated, and timed and placed back in chart. Copy provided to patient's bedside.
--- NOTE | 2020-05-02 12:28 | PM.PN ---
Subjective Subjective: Interval history: He is significantly more responsive and animated today. He is able to tell me his name. Not date or where he is. Denies pain or discomfort. Denies trouble breathing. Denies chest pain or pressure. Later on heard making random statements. He is confused, but able to verbalize his thoughts. Moving about in bed. Vitals/I&O/Wt Last Vital Signs Temp 97.4 F L 05/02/20 07:00 Pulse 82 05/02/20 11:19 Resp 18 05/02/20 11:19 BP 126/64 05/02/20 07:00 Pulse Ox 100 05/02/20 11:19 05/01/20 05/02/20 05/02/20 22:59 06:59 14:59 Intake Total 99.952 / 143.862 635.701 / 779.563 Output Total 510 / 510 125 / 635 Balance -410.048 / -366.138 510.701 / 144.563 Weight last 48 hrs Weight 77.61 kg Weight 81.987 kg Physical Exam Const: COMMON NORMALS: no acute distress ORIENTATION/CONSCIOUSNESS: Yes confused OTHER: More alert today. Not following commands very well but cooperates with request for deep breaths. HENMT: COMMON NORMALS: oropharynx normal NOSE: Other nasal findings present (Wound on bridge of the nose covered by dressing. ) Neck/C-Spine: COMMON NORMALS: no JVD Chest: OTHER: HD catheter Resp: COMMON NORMALS: normal respiratory effort and clear to auscultation bilaterally AUSCULTATION: clear to auscultation bilaterally Cardio: COMMON NORMALS: no JVD, S1 normal heart sound present, S2 normal heart sound present and No murmurs present (Cardio) RATE: tachycardic HEART SOUNDS: S1 normal heart sound present and S2 normal heart sound present GI: COMMON NORMALS: Normal to inspection, nondistended, normoactive bowel sounds present, Soft to palpation and non-tender PALPATION: Yes Soft to palpation Extremity: COMMON NORMALS: no joint enlargement and no pedal edema Neuro: COMMON NORMALS: moves all extremities Urinary Catheter Management^: Jaquez: Cath Placed During This Visit: yes Reason for Continuing Indwelling Catheter: Accurate Measurement of Urinary Output in Critically Ill Patients Urinary Catheter Date of Insertion: 04/22/20 Urinary Catheter Time of Insertion: 18:43 Data : 05/02/20 04:17 05/02/20 04:17 A&P Assessment and plan (1) Acute on chronic diastolic (congestive) heart failure: He is doing well on high flow cannula. Denies any shortness of breath. Saturating in the 90s. Has remained on BiPAP. This morning we will see how he does with high flow cannula. ABG this morning 7.3/43.5/58.9 CXR 05/01 with improved pulmonary consolidation and effusion (small). Improving heart failure. Pneumonia on CXR 04/27. No signs of sepsis. Acute diastolic CHF. Underwent hemodialysis. Blood pressure improved. Wean down on Precedex. Extubated on 04/25/20 Cardiology consult appreciated Appreciate nephrology and surgical consultation. Status: Acute (2) Acute encephalopathy: This is better today. Possible uremia. Did successfully complete hemodialysis. Also possible delirium superimposed on chronic dementia, possibly minimally conscious state which is improving. He is usually more responsive from what I am told, able to answer questions follow commands. Dyspnea multifactorial secondary to underlying infection with pneumonia UA is not impressive for UTI, but does have some microscopic hematuria. Back in July CT scan with findings that could have suggested pyelonephritis. Ordered CT renal protocol, however, he is not staying still very well, and not following commands well at this time. We will first attempt to see if we can get any useful information by assessment by ultrasound at bedside. Possible metabolic encephalopathy secondary to renal failure. Overnight received Ativan, started on Precedex. Home medications reviewed. CT of the head with noted increasing fluid in multiple left mastoid air cells consistent with left-sided mastoiditis. Otherwise mild generalized cerebral atrophy, mild senescent white matter disease. Continue speech reevaluation. Status: Acute (3) Chronic kidney disease: Chronic kidney disease increasing BUN and creatinine Appreciate nephrology consultation Dialysis catheter placed on 04/27/2020, Tolerating HD so far. BP is better. Status: Chronic (4) Chronic anemia: Acute on chronic anemia also with iron deficiency Fecal occult blood positive this admission, no evidence of any active bleeding at this time, continue on PPI twice daily Consider further outpatient work-up once cardiopulmonary status improved Status: Acute (5) Ventricular tachycardia: Prior history of ventricular tachycardia, on amiodarone 200 mg daily, metoprolol 25mg, however unable to take due to inability to swallow medications Continue IV metoprolol PRN, may require esmolol drip Status: Resolved (6) High risk medication use: Status: Acute (7) Edema, peripheral: improved Status: Acute (8) Dyslipidemia: Continue home statin Status: Acute (9) Hypertension: Status: Acute Qualifiers: Hypertension type: essential hypertension Qualified Code(s): I10 - Essential (primary) hypertension (10) Dementia: With some sundowning at night Status: Chronic Qualifiers: Dementia type: Lewy body dementia Dementia behavioral disturbance: without behavioral disturbance Qualified Code(s): G31.83 - Dementia with Lewy bodies; F02.80 - Dementia in other diseases classified elsewhere without behavioral disturbance (11) Diabetes mellitus: Lantus held Sliding scale as needed Glipizide on hold Status: Chronic Qualifiers: Diabetes mellitus type: type 2 Diabetes mellitus nursing home insulin use: without meterman use Diabetes mellitus complication status: with hyperglycemia Qualified Code(s): E11.65 - Type 2 diabetes mellitus with hyperglycemia (12) Atrial fibrillation: Improved. Paroxysmal atrial fibrillation with RVR. IV metoprolol scheduled due to inability to take p.o.. Amiodarone. Cardiology consultation appreciated Off of anticoagulation due to anemia Status: Acute Additional A&P Information Sacral lesion has been noted. Reposition frequently. Keep dry. Mental status appears to be improving, perhaps may be able to resume oral nutrition soon. Difficult jaquez placement: Jaquez placed by Dr. Del Real, appreciate consultation. Follow in office. Pneumonia: No sepsis. On vancomycin and Zosyn due to concern for pneumonia, however sputum culture showing mixed ray of the upper respiratory tract. Vancomycin was stopped. Positive blood culture: Showing coag negative staph, likely contaminant as only in 1 bottle, repeat blood cultures show no growth to date. Lewy body dementia DVT prophylaxis: SCDs, no pharmacologic prophylaxis due to anemia Diet: NPO, ST eval GI ppx: PPI CODE STATUS: Full code Dispo: trasition to LTAC Attestations Medical Necessity Statement*: Continue admission for assessment and management of acute encephalopathy, pneumonia, CHF exacerbation, acute kidney injury on chronic kidney disease management of atrial fibrillation and other conditions with currently inconsistent oral intake due to mental status changes. Coding Level of Care Code Acute Marketing Rotation Associate for Maylin Fwd Diagnoses Acute on chronic diastolic (congestive) heart failure I50.33 Acute encephalopathy G93.40 Chronic kidney disease N18.9 Chronic anemia D64.9 Ventricular tachycardia I47.2 High risk medication use Z79.899 Edema, peripheral R60.9 Dyslipidemia E78.5 Hypertension I10 Hypertension type: essential hypertension Dementia G31.83; F02.80 Dementia type: Lewy body dementia Dementia behavioral disturbance: without behavioral disturbance Diabetes mellitus E11.65 Diabetes mellitus type: type 2 Diabetes mellitus nursing home insulin use: without meterman use Diabetes mellitus complication status: with hyperglycemia Atrial fibrillation I48.91
--- NOTE | 2020-05-02 12:42 | US_ITS ---
WS: [id number] ULTRASOUND RENAL TECHNIQUE: Ultrasound examination of both kidneys. CLINICAL INFORMATION: Microscopic hematuria, JED COMPARISON: None. FINDINGS: RIGHT: Nonspecific soft tissue structure medial to the right kidney not well evaluated. This can be f urther evaluated with CT for better anatomic detail. Right kidney is normal in size and appearance. Echogenicity: Normal. Cortical thickness: 1.2 cm; Normal. Hydronephrosis: None. Perinephric fluid: None. Right kidney measures: 10.5 cm x 5.1 cm x 5.2 cm. LEFT: Left kidney is normal in size and appearance. Echogenicity: Normal. Cortical thickness: 1.8 cm; Normal. Hydronephrosis: None. Perinephric fluid: None. Left kidney measures: 14.0 cm x 4.4 cm x 5.6 cm. Normal visualized aorta. Whitley catheter US/US renal BI* [id number] IMPRESSION: 1. No hydronephrosis in either kidney. 2. Structure medial to the right kidney with blood flow is nonspecific. This c an be further evaluated with CT for better anatomic detail 3. Whitley catheter
[2020-05-02 13:32] LABS: Glucose Point of Care 126 mg/dL (70-110)
--- NOTE | 2020-05-02 14:03 | P.PN_ITS ---
Subjective Subjective: Interval history: more lucid and interactive, resting comfortably on Precedex on my interview. No new issues. UO remains marginal at 650mL. Medications: Reviewed: Yes Medication Review Details: Current Medications Acetaminophen (Tylenol) 650 mg PO Q6H PRN PRN Reason: Mild/Mod Pain Or Temp >/= 101 Last Admin: 04/29/20 18:06 Dose: 650 mg Documented by: Albuterol/Ipratropium (Duoneb) 3 ml INHALATION Q4H.RESPIRATORY COUNTS INCLUDE 234 BEDS AT THE [facility] Last Admin: 05/01/20 08:11 Dose: 3 ml Documented by: Amiodarone HCl (Cordarone) 200 mg PO DAILY COUNTS INCLUDE 234 BEDS AT THE [facility] Last Admin: 04/28/20 08:58 Dose: Not Given Documented by: Amlodipine Besylate (Norvasc) 10 mg PO DAILY COUNTS INCLUDE 234 BEDS AT THE [facility] Last Admin: 04/23/20 09:39 Dose: 10 mg Documented by: Atorvastatin Calcium (Lipitor) 20 mg PO BEDTIME COUNTS INCLUDE 234 BEDS AT THE [facility] Last Admin: 04/30/20 21:00 Dose: 20 mg Documented by: Bisacodyl (Dulcolax) 10 mg PO DAILY PRN PRN Reason: CONSTIPATION Dextrose (D50w) 25 ml IVP ONCE PRN; Protocol PRN Reason: hypoglycemia protocol Dextrose (D50w) 50 ml IVP PRN PRN; Protocol PRN Reason: hypoglycemia protocol Ferrous Sulfate (Ferrous Sulfate) 325 mg PO BIDWM COUNTS INCLUDE 234 BEDS AT THE [facility] Last Admin: 05/01/20 09:26 Dose: Not Given Documented by: Furosemide (Lasix) 80 mg IVP Q12H COUNTS INCLUDE 234 BEDS AT THE [facility] Last Admin: 05/01/20 05:36 Dose: 80 mg Documented by: Gabapentin (Neurontin) 400 mg PO DAILY COUNTS INCLUDE 234 BEDS AT THE [facility] Last Admin: 05/01/20 09:26 Dose: Not Given Documented by: Glucagon (Glucagen) 1 mg IM ONCE PRN; Protocol PRN Reason: Adult Acute Hypoglycemia Prot. Hydralazine HCl (Apresoline) 25 mg PO TID COUNTS INCLUDE 234 BEDS AT THE [facility] Last Admin: 05/01/20 09:26 Dose: Not Given Documented by: Dextrose (D5w) 500 mls @ 100 mls/hr IV ONCE PRN; Protocol PRN Reason: Adult Acute Hypoglycemia Prot Furosemide 100 mg/ Sodium (Chloride) 50 mls @ 0 mls/hr IV .Q0M COUNTS INCLUDE 234 BEDS AT THE [facility]; Protocol Last Admin: 04/27/20 00:43 Dose: 15 mg/hr, 7.5 mls/hr Documented by: Piperacillin Sod/Tazobactam (Sod 3.375 gm/ Sodium Chloride) 50 mls @ 12.5 mls/hr IV Q12H COUNTS INCLUDE 234 BEDS AT THE [facility]; Protocol Last Infusion: 05/01/20 05:37 Dose: Infused Documented by: Amiodarone HCl 900 mg/Dextrose/ IV Miscellaneous Supplies 518 mls @ 0 mls/hr IV .Q0M COUNTS INCLUDE 234 BEDS AT THE [facility]; Protocol Last Admin: 04/30/20 22:29 Dose: 0.5 mg/min, 17.3 mls/hr Documented by: Dexmedetomidine HCl 400 mcg/ (Sodium Chloride) 104 mls @ 0 mls/hr IV .Q0M COUNTS INCLUDE 234 BEDS AT THE [facility]; Protocol Last Titration: 05/01/20 03:52 Dose: 0.3 mcg/kg/hr, 6.4 mls/hr Documented by: Norepinephrine Bitartrate 4 mg (/ Dextrose) 254 mls @ 0 mls/hr IV .Q0M COUNTS INCLUDE 234 BEDS AT THE [facility]; Protocol Lidocaine HCl 5 ml/ Potassium (Chloride) 105 mls @ 50 mls/hr IV ONCE ONE Stop: 05/01/20 11:05 Insulin Aspart (Novolog) 0 unit SUBCUT BEDTIME COUNTS INCLUDE 234 BEDS AT THE [facility]; Protocol Last Admin: 04/30/20 21:00 Dose: Not Given Documented by: Insulin Aspart (Novolog) 0 unit SUBCUT TIDWM COUNTS INCLUDE 234 BEDS AT THE [facility]; Protocol Last Admin: 05/01/20 07:46 Dose: Not Given Documented by: Isosorbide Mononitrate (Imdur) 60 mg PO QAM COUNTS INCLUDE 234 BEDS AT THE [facility] Last Admin: 05/01/20 05:39 Dose: Not Given Documented by: Metolazone (Zaroxolyn) 5 mg PO DAILY COUNTS INCLUDE 234 BEDS AT THE [facility] Last Admin: 05/01/20 09:27 Dose: Not Given Documented by: Metoprolol Tartrate (Lopressor) 25 mg PO BID COUNTS INCLUDE 234 BEDS AT THE [facility] Last Admin: 04/26/20 08:11 Dose: Not Given Documented by: Metoprolol Tartrate (Metoprolol Tartrate) 5 mg IV Q4H PRN PRN Reason: HR greater than 110 Last Admin: 04/30/20 23:58 Dose: 5 mg Documented by: Multi-Ingredient Ointment (Eucerin) 1 applic TOPICAL BID COUNTS INCLUDE 234 BEDS AT THE [facility] Last Admin: 05/01/20 09:50 Dose: 1 applic Documented by: Naloxone HCl (Narcan) 0.1 mg IVP Q2M PRN PRN Reason: OPIATERV Ondansetron HCl (Zofran) 4 mg IVP Q8H PRN PRN Reason: vomiting, or N/V if npo Pantoprazole Sodium (Protonix) 40 mg IVP Q12H COUNTS INCLUDE 234 BEDS AT THE [facility] Last Admin: 04/30/20 21:00 Dose: 40 mg Documented by: Potassium Chloride (Potassium Chloride Oral Liquid) 10 meq PO DAILY COUNTS INCLUDE 234 BEDS AT THE [facility] Last Admin: 05/01/20 09:27 Dose: Not Given Documented by: Trazodone HCl (Desyrel) 50 mg PO BEDTIME COUNTS INCLUDE 234 BEDS AT THE [facility] Last Admin: 04/30/20 21:00 Dose: 50 mg Documented by: Vitals/I&O/Wt Last Vital Signs Temp 97.4 F L 05/02/20 07:00 Pulse 82 05/02/20 11:19 Resp 18 05/02/20 11:19 BP 126/64 05/02/20 07:00 Pulse Ox 100 05/02/20 11:19 05/01/20 05/02/20 05/02/20 22:59 06:59 14:59 Intake Total 99.952 / 143.862 635.701 / 779.563 Output Total 510 / 510 125 / 635 Balance -410.048 / -366.138 510.701 / 144.563 Weight last 48 hrs Weight 77.61 kg Weight 81.987 kg Physical Exam Narrative: EXAM NARRATIVE: Constitutional: Drowsy, on BIPAP HEENT: Wet mucosa, no jvp, non icteric Lungs: Bilaterally clear coarse, diminished all lung zones CVS: S1 S2, no murmurs Abdo: Soft, BS ok Ext 4: global edema, peripheral perfusion with no cyanosis Neurological: Grossly non-focal Urinary Catheter Management^: Whitley: Cath Placed During This Visit: yes Reason for Continuing Indwelling Catheter: Accurate Measurement of Urinary Output in Critically Ill Patients Urinary Catheter Date of Insertion: 04/22/20 Urinary Catheter Time of Insertion: 18:43 Data : 05/02/20 04:17 05/02/20 04:17 A&P Additional A&P Information 1. JED on CKD Consistent with CRS Dialyzed tomorrow, 4K bath Strict ins and outs, avoid usual nephrotoxic medication. 2. Lytes - 40Eq KCl rider today; 4k bath tomorrow 3. Hypertension, Afib Hemodynamics remain stable 4. Anemia - serial H/H, low iron sat, s/p venofer 5. AMS - likely toxic encephalopathy - slight improvement Antonino Harden MD Nephrology [phone] Patient seen and examined via telemedicine, with the assistance of the bedside RN Attestations Medical Necessity Statement*: eval for JED Coding Level of Care Code Acute Machine Clothing Replacer for Chg Andrew
[2020-05-02] MEDS: dexmedetomidine 400 MCG in sodium chloride 0.9% (100 ml) 100 ML 10.7 MCG IV (14:58)
[2020-05-02 17:09] LABS: Glucose Point of Care 129 mg/dL (70-110)
[2020-05-02] MEDS: lidocaine 1% 5 ML in potassium chloride premix 100 ML 25 ML IV (20:17)
[2020-05-02 20:42] LABS: Glucose Point of Care 130 mg/dL (70-110)
[2020-05-03] VITALS (62 sets, daily range): BP systolic 115–181; BP diastolic 52–94; PULSE 53–93; RESP 14–35; TEMP 36.6–37.3; O2SAT 4–99
[2020-05-03] MEDS: piperacillin-tazobactam 3.375 GM in sodium chloride 0.9% (plus) 50 ML IV ×2 (00:22→12:02)
[2020-05-03] MEDS: ipratropium-albuterol 3 mL Neb INHALATION ×7 (00:26→23:05)
[2020-05-03] MEDS: diphenhydrAMINE 50 mg/mL SDV 1mL 25 MG IVP ×3 (00:27→15:15)
[2020-05-03] MEDS: dexmedetomidine 400 MCG in sodium chloride 0.9% (100 ml) 100 ML 12.8 MCG IV (02:11)
[2020-05-03] MEDS: LORazepam 2 mg/mL INJ 1 mL 0.5 MG IVP ×2 (03:30→14:38)
[2020-05-03 04:00] LABS: Basophils # 0.1 10^3/uL (0.0-0.1); Basophils % 1.1 %; Eosinophils # 0.3 10^3/uL (0.0-0.8); Eosinophils % 3.4 %; Hematocrit 34.8 % (42.0-52.0); Lymphocytes # 0.9 10^3/uL (0.8-4.8); Lymphocytes % 10.3 %; Mean Corpuscular HGB Conc 28.7 g/dL (30.0-36.0); Mean Corpuscular Hemoglobin 25.6 pg (28.0-34.0); Mean Platelet Volume 9.9 fL (7.4-10.4); Monocytes # 0.9 10^3/uL (0.2-0.9); Monocytes % 9.8 %; Neutrophils # 6.79 10^3/uL (1.8-7.7); Neutrophils % 74.4 %; Nucleated Red Blood Cells % 0 %; Platelet Count 244 10^3/cmm (130-400); Red Blood Count 3.91 10^6/uL (4.1-5.3); Red Cell Distribution Width 16.1 % (12.1-15.1); White Blood Count 9.1 10^3/uL (4.0-10.0)
[2020-05-03 04:34] LABS: Alanine Aminotransferase 16 U/L (0-41); Albumin Level 3.5 g/dL (3.5-5.2); Alkaline Phosphatase 130 IU/L (40-130); Anion Gap 26.4 (5-19); Aspartate Amino Transferase 20 U/L (0-40); Blood Urea Nitrogen 35 mg/dL (8-23); Calcium 9.4 mg/dL (8.5-10.5); Carbon Dioxide 19 mmol/L (22-29); Chloride 99 mmol/L (98-107); Globulin 3.5 g/dL (1.3-4.6); Glucose 163 mg/dL (65-115); Osmolality Calculated 304 mOsm/kg (285-295); Potassium 3.4 mmol/L (3.5-5.1); Sodium 141 mmol/L (136-145); Total Bilirubin 0.3 mg/dL (0.15-1.2)
--- NOTE | 2020-05-03 05:51 | PC.NURSE ---
Pt has been awake w intermittent sleeping. Remains confused and pulls at gown and jaquez. Sitter at bedside. Oriented to name/birthday and that he's in the hospital but confused to time and situation. Bilat soft wrist restraints on per protocol. Freq agitated. Has freq c/o his back and abd itching and then said he itched all over . Voalted MD and received order for PRN Benadryl. Given x1 thus far and he experience relief as it put him to sleep for approx 3 hrs. He was wide awake and agitated at start of shift. Precedex was increased to 0.7. Pt was repositioned and back/abd/BLEs lotioned in attempt to make comfortable. Took several hours for him to calm down and Precedex has been weaned down only to 0.6. Given PRN Ativan x2 with relief observed but he is easily awakened with turns. Jaquez care done. Urinary output better tonight. Was given K rider last night x1 and K is 3.4 this am. Remains NPO. LS essentially clear and dim in bases. On hiflow NC at 7L at this time. Remains on amio gtt and is SR with a BBB. Oral care and turns done every 2 hrs. property damage claims adjustor here and pt was asleep until she placed a mask on his face and began to connect him. He is currently agitated and repeating Let me loose . Also repeating My back itches and I can't breathe . property damage claims adjustor in with pt and sitter in doorway. Cont to monitor.
[2020-05-03 07:20] LABS: Glucose Point of Care 122 mg/dL (70-110)
--- NOTE | 2020-05-03 09:09 | P.PN_ITS ---
Subjective Subjective: Interval history: He is speaking out loud, eyes closed. Making some not entirely sensical statements. Does appear to say that his legs are itching. Vitals/I&O/Wt Last Vital Signs Temp 97.8 F 05/03/20 04:00 Pulse 65 05/03/20 08:55 Resp 14 05/03/20 08:50 BP 156/70 05/03/20 07:00 Pulse Ox 98 05/03/20 08:50 05/02/20 05/03/20 05/03/20 22:59 06:59 14:59 Intake Total 134.324 / 134.324 166.759 / 301.083 Output Total 475 / 475 300 / 775 Balance -340.676 / -340.676 -133.241 / -473.917 Weight last 48 hrs Weight 76.702 kg Weight 77.61 kg Physical Exam Const: COMMON NORMALS: no acute distress ORIENTATION/CONSCIOUSNESS: Yes confused OTHER: More alert than day before yesterday. Is able to provide some information and asked about it, but otherwise continues speaking aloud, not always making sense. Confused. Follows some commands. HENMT: COMMON NORMALS: oropharynx normal NOSE: Other nasal findings present (Wound on bridge of the nose covered by dressing. ) Neck/C-Spine: COMMON NORMALS: no JVD Chest: OTHER: HD catheter Resp: COMMON NORMALS: normal respiratory effort and clear to auscultation bilaterally AUSCULTATION: clear to auscultation bilaterally Cardio: COMMON NORMALS: no JVD, S1 normal heart sound present, S2 normal heart sound present and No murmurs present (Cardio) RATE: tachycardic HEART SOUNDS: S1 normal heart sound present and S2 normal heart sound present GI: COMMON NORMALS: Normal to inspection, nondistended, normoactive bowel sounds present, Soft to palpation and non-tender PALPATION: Yes Soft to palpation Extremity: COMMON NORMALS: no joint enlargement and no pedal edema Neuro: COMMON NORMALS: moves all extremities Urinary Catheter Management^: Jaquez: Cath Placed During This Visit: yes Reason for Continuing Indwelling Catheter: Accurate Measurement of Urinary O utput in Critically Ill Patients Urinary Catheter Date of Insertion: 04/22/20 Urinary Catheter Time of Insertion: 18:43 Data : 05/03/20 03:40 05/03/20 03:40 A&P Assessment and plan (1) Acute on chronic diastolic (congestive) heart failure: Undergoing hemodialysis today. Blood pressure has been good, has not required any further pressor support. Oxygenation is gradually improving. Currently on 6 L nasal cannula. CXR 05/01 with improved pulmonary consolidation and effusion (small). Improving heart failure. Pneumonia on CXR 04/27. No signs of sepsis. Continue Zosyn. For now continues n.p.o. as has not been reliably awake enough to safely tolerate oral intake or allow speech therapy reassessment. As he moves about the bed and pulls on different things, would not be a good candidate for NG currently. Acute diastolic CHF. Underwent hemodialysis. Blood pressure improved. Today we will again attempt to wean down on Precedex. Use Ativan as needed if restless/agitated. Extubated on 04/25/20 Cardiology consult appreciated Appreciate nephrology and surgical consultation. Status: Acute (2) Acute encephalopathy: This is better today. Possible uremia. Did successfully complete hemodialysis. Also possible delirium superimposed on chronic dementia, possibly minimally conscious state which is improving. He is usually more responsive from what I am told, able to answer questions follow commands. Dyspnea multifactorial secondary to underlying infection with pneumonia UA is not impressive for UTI, but does have some microscopic hematuria. Back in July CT scan with findings that could have suggested pyelonephritis. Ordered CT renal protocol, however, he is not staying still very well, and not following commands well at this time. We will first attempt to see if we can get any useful information by assessment by ultrasound at bedside. Possible metabolic encephalopathy secondary to renal failure. Overnight received Ativan, started on Precedex. Home medications reviewed. CT of the head with noted increasing fluid in multiple left mastoid air cells consistent with left-sided mastoiditis. Otherwise mild generalized cerebral atrophy, mild senescent white matter disease. Continue speech reevaluation. Status: Acute (3) Chronic kidney disease: Chronic kidney disease increasing BUN and creatinine Appreciate nephrology consultation Dialysis catheter placed on 04/27/2020, Tolerating HD so far. BP is better. Status: Chronic (4) Chronic anemia: Acute on chronic anemia also with iron deficiency Fecal occult blood positive this admission, no evidence of any active bleeding at this time, continue on PPI twice daily Consider further outpatient work-up once cardiopulmonary status improved Status: Acute (5) Ventricular tachycardia: Prior history of ventricular tachycardia, on amiodarone 200 mg daily, metoprolol 25mg, however unable to take due to inability to swallow medications. Continue amiodarone drip. Continue IV metoprolol PRN. Status: Resolved (6) High risk medication use: Status: Acute (7) Edema, peripheral: improved Status: Acute (8) Dyslipidemia: Continue home statin Status: Acute (9) Hypertension: Status: Acute Qualifiers: Hypertension type: essential hypertension Qualified Code(s): I10 - Essential (primary) hypertension (10) Dementia: With some sundowning at night Status: Chronic Qualifiers: Dementia type: Lewy body dementia Dementia behavioral disturbance: without behavioral disturbance Qualified Code(s): G31.83 - Dementia with Lewy bodies; F02.80 - Dementia in other diseases classified elsewhere without behavioral disturbance (11) Diabetes mellitus: Lantus held Sliding scale as needed Glipizide on hold Status: Chronic Qualifiers: Diabetes mellitus type: type 2 Diabetes mellitus terminal computer operator insulin use: without terminal computer operator use Diabetes mellitus complication status: with hyperglycemia Qualified Code(s): E11.65 - Type 2 diabetes mellitus with hyperglycemia (12) Atrial fibrillation: Improved. Paroxysmal atrial fibrillation with RVR. Continue amiodarone infusion. IV metoprolol scheduled due to inability to take p.o. Cardiology consultation appreciated Off of anticoagulation due to anemia Status: Acute Additional A&P Information Sacral lesion has been noted. Reposition frequently. Keep dry. Mental status appears to be improving, perhaps may be able to resume oral nutrition soon. Difficult jaquez placement: Jaquez placed by Dr. Del Real, appreciate consultation. Follow in office. Pneumonia: No sepsis. Zosyn due to concern for pneumonia. Altered mental status is very slow to improve. Slow to wean off sedation. Has not been lucid enough to participate well with speech therapy. However sputum culture showing mixed ray of the upper respiratory tract. Vancomycin was stopped. Positive blood culture: Showing coag negative staph, likely contaminant as only in 1 bottle, repeat blood cultures show no growth to date. Lewy body dementia DVT prophylaxis: SCDs, no pharmacologic prophylaxis due to anemia Diet: NPO, ST eval GI ppx: PPI CODE STATUS: Full code Dispo: trasition to LTAC Attestations Medical Necessity Statement*: Continue admission for assessment and management of respiratory failure, pneumonia, acute encephalopathy with elevated risk of aspiration, acute kidney injury on chronic kidney disease, A. fib with RVR. Coding Level of Care Code Acute Transition Rn for Chg Fwd Diagnoses Acute on chronic diastolic (congestive) heart failure I50.33 Acute encephalopathy G93.40 Chronic kidney disease N18.9 Chronic anemia D64.9 Ventricular tachycardia I47.2 High risk medication use Z79.899 Edema, peripheral R60.9 Dyslipidemia E78.5 Hypertension I10 Hypertension type: essential hypertension Dementia G31.83; F02.80 Dementia type: Lewy body dementia Dementia behavioral disturbance: without behavioral disturbance Diabetes mellitus E11.65 Diabetes mellitus type: type 2 Diabetes mellitus senior care insulin use: without senior care use Diabetes mellitus complication status: with hyperglycemia Atrial fibrillation I48.91
[2020-05-03] MEDS: eucerin cream 113 gm Jar 1 APPLIC TOPICAL ×2 (09:51→17:38)
[2020-05-03 11:09] LABS: Glucose Point of Care 104 mg/dL (70-110)
[2020-05-03] MEDS: pantoprazole 40 mg SDV IVP ×2 (11:23→21:40)
[2020-05-03] MEDS: FUROsemide 10 mg/mL SDV 10mL 80 MG IVP ×2 (11:24→21:40)
[2020-05-03] MEDS: dexmedetomidine 400 MCG in sodium chloride 0.9% (100 ml) 100 ML 6.4 MCG IV (11:38)
--- NOTE | 2020-05-03 12:47 | PM.PN ---
Subjective Subjective: Interval history: Chatting away, although this is somewhat incoherent for the most part. He does appear to be comfortable. He did receive dialysis this morning, with 1 L of ultrafiltration removed. He tolerated this hemodynamically well. He is making some urine although it is marginal. No extremity edema, shortness of breath or other volume associated symptoms. Medications: Reviewed: Yes Medication Review Details: Current Medications Acetaminophen (Tylenol) 650 mg PO Q6H PRN PRN Reason: Mild/Mod Pain Or Temp >/= 101 Last Admin: 04/29/20 18:06 Dose: 650 mg Documented by: Albuterol/Ipratropium (Duoneb) 3 ml INHALATION Q4H.RESPIRATORY DEBBIE Last Admin: 05/01/20 08:11 Dose: 3 ml Documented by: Amiodarone HCl (Cordarone) 200 mg PO DAILY [facility] Last Admin: 04/28/20 08:58 Dose: Not Given Documented by: Amlodipine Besylate (Norvasc) 10 mg PO DAILY [facility] Last Admin: 04/23/20 09:39 Dose: 10 mg Documented by: Atorvastatin Calcium (Lipitor) 20 mg PO BEDTIME DEBBIE Last Admin: 04/30/20 21:00 Dose: 20 mg Documented by: Bisacodyl (Dulcolax) 10 mg PO DAILY PRN PRN Reason: CONSTIPATION Dextrose (D50w) 25 ml IVP ONCE PRN; Protocol PRN Reason: hypoglycemia protocol Dextrose (D50w) 50 ml IVP PRN PRN; Protocol PRN Reason: hypoglycemia protocol Ferrous Sulfate (Ferrous Sulfate) 325 mg PO BIDWM [facility] Last Admin: 05/01/20 09:26 Dose: Not Given Documented by: Furosemide (Lasix) 80 mg IVP Q12H DEBBIE Last Admin: 05/01/20 05:36 Dose: 80 mg Documented by: Gabapentin (Neurontin) 400 mg PO DAILY [facility] Last Admin: 05/01/20 09:26 Dose: Not Given Documented by: Glucagon (Glucagen) 1 mg IM ONCE PRN; Protocol PRN Reason: Adult Acute Hypoglycemia Prot. Hydralazine HCl (Apresoline) 25 mg PO TID [facility] Last Admin: 05/01/20 09:26 Dose: Not Given Documented by: Dextrose (D5w) 500 mls @ 100 mls/hr IV ONCE PRN; Protocol PRN Reason: Adult Acute Hypoglycemia Prot Furosemide 100 mg/ Sodium (Chloride) 50 mls @ 0 mls/hr IV .Q0M DEBBIE; Protocol Last Admin: 04/27/20 00:43 Dose: 15 mg/hr, 7.5 mls/hr Documented by: Piperacillin Sod/Tazobactam (Sod 3.375 gm/ Sodium Chloride) 50 mls @ 12.5 mls/hr IV Q12H [facility]; Protocol Last Infusion: 05/01/20 05:37 Dose: Infused Documented by: Amiodarone HCl 900 mg/Dextrose/ IV Miscellaneous Supplies 518 mls @ 0 mls/hr IV .Q0M DEBBIE; Protocol Last Admin: 04/30/20 22:29 Dose: 0.5 mg/min, 17.3 mls/hr Documented by: Dexmedetomidine HCl 400 mcg/ (Sodium Chloride) 104 mls @ 0 mls/hr IV .Q0M DEBBIE; Protocol Last Titration: 05/01/20 03:52 Dose: 0.3 mcg/kg/hr, 6.4 mls/hr Documented by: Norepinephrine Bitartrate 4 mg (/ Dextrose) 254 mls @ 0 mls/hr IV .Q0M DEBBIE; Protocol Lidocaine HCl 5 ml/ Potassium (Chloride) 105 mls @ 50 mls/hr IV ONCE ONE Stop: 05/01/20 11:05 Insulin Aspart (Novolog) 0 unit SUBCUT BEDTIME [facility]; Protocol Last Admin: 04/30/20 21:00 Dose: Not Given Documented by: Insulin Aspart (Novolog) 0 unit SUBCUT TIDWM [facility]; Protocol Last Admin: 05/01/20 07:46 Dose: Not Given Documented by: Isosorbide Mononitrate (Imdur) 60 mg PO QAM [facility] Last Admin: 05/01/20 05:39 Dose: Not Given Documented by: Metolazone (Zaroxolyn) 5 mg PO DAILY [facility] Last Admin: 05/01/20 09:27 Dose: Not Given Documented by: Metoprolol Tartrate (Lopressor) 25 mg PO BID [facility] Last Admin: 04/26/20 08:11 Dose: Not Given Documented by: Metoprolol Tartrate (Metoprolol Tartrate) 5 mg IV Q4H PRN PRN Reason: HR greater than 110 Last Admin: 04/30/20 23:58 Dose: 5 mg Documented by: Multi-Ingredient Ointment (Eucerin) 1 applic TOPICAL BID [facility] Last Admin: 05/01/20 09:50 Dose: 1 applic Documented by: Naloxone HCl (Narcan) 0.1 mg IVP Q2M PRN PRN Reason: OPIATERV Ondansetron HCl (Zofran) 4 mg IVP Q8H PRN PRN Reason: vomiting, or N/V if npo Pantoprazole Sodium (Protonix) 40 mg IVP Q12H [facility] Last Admin: 04/30/20 21:00 Dose: 40 mg Documented by: Potassium Chloride (Potassium Chloride Oral Liquid) 10 meq PO DAILY [facility] Last Admin: 05/01/20 09:27 Dose: Not Given Documented by: Trazodone HCl (Desyrel) 50 mg PO BEDTIME [facility] Last Admin: 04/30/20 21:00 Dose: 50 mg Documented by: Vitals/I&O/Wt Last Vital Signs Temp 99.2 F 05/03/20 08:00 Pulse 77 05/03/20 10:00 Resp 17 05/03/20 10:00 BP 181/61 05/03/20 10:00 Pulse Ox 97 05/03/20 10:00 05/02/20 05/03/20 05/03/20 22:59 06:59 14:59 Intake Total 134.324 / 134.324 166.759 / 301.083 Output Total 475 / 475 300 / 775 Balance -340.676 / -340.676 -133.241 / -473.917 Weight last 48 hrs Weight 76.702 kg Weight 77.61 kg Physical Exam Narrative: EXAM NARRATIVE: Constitutional: Awake and chatting HEENT: Wet mucosa, no jvp, non icteric Lungs: Bilaterally clear coarse, diminished all lung zones CVS: S1 S2, no murmurs Abdo: Soft, BS ok Ext 4: global edema, peripheral perfusion with no cyanosis Neurological: Grossly non-focal Urinary Catheter Management^: Whitley: Cath Placed During This Visit: yes Reason for Continuing Indwelling Catheter: Accurate Measurement of Urinary Output in Critically Ill Patients Urinary Catheter Date of Insertion: 04/22/20 Urinary Catheter Time of Insertion: 18:43 Data : 05/03/20 03:40 05/03/20 03:40 A&P Additional A&P Information 1. JED on CKD Consistent with CRS Dialyzed today, plan next session on Friday, monitoring for recovery Strict ins and outs, avoid usual nephrotoxic medication. 2. Lytes - 40Eq KCl rider today after dialysis; we only have 3K baths available 3. Hypertension, Afib Hemodynamics remain stable 4. Anemia - serial H/H, low iron sat, s/p venofer 5. AMS - likely toxic encephalopathy - slight improvement Antonino Harden MD Nephrology [phone] Patient seen and examined via telemedicine, with the assistance of the bedside RN Attestations Medical Necessity Statement*: eval for JED Coding Level of Care Code Acute Plumbing Service Technician for Chg Andrew
--- NOTE | 2020-05-03 16:16 | P.PN_ITS ---
Subjective Subjective: Interval history: Patient seems to be a little more alert and cooperative today. Still is somewhat agitated. The vital signs remained stable. Telemetry shows sinus rhythm. Still is not able to tolerate oral medications. He is on IV amiodarone. Medications: Reviewed: Yes Medication Review Details: Current Medications Acetaminophen (Tylenol) 650 mg PO Q6H PRN PRN Reason: Mild/Mod Pain Or Temp >/= 101 Last Admin: 04/29/20 18:06 Dose: 650 mg Documented by: Albuterol/Ipratropium (Duoneb) 3 ml INHALATION Q4H.RESPIRATORY DEBBIE Last Admin: 05/03/20 15:33 Dose: 3 ml Documented by: Amiodarone HCl (Cordarone) 200 mg PO DAILY DEBBIE Last Admin: 04/28/20 08:58 Dose: Not Given Documented by: Amlodipine Besylate (Norvasc) 10 mg PO DAILY DEBBIE Last Admin: 04/23/20 09:39 Dose: 10 mg Documented by: Atorvastatin Calcium (Lipitor) 20 mg PO BEDTIME DEBIBE Last Admin: 05/02/20 20:20 Dose: Not Given Documented by: Bisacodyl (Dulcolax) 10 mg PO DAILY PRN PRN Reason: CONSTIPATION Dextrose (D50w) 25 ml IVP ONCE PRN; Protocol PRN Reason: hypoglycemia protocol Dextrose (D50w) 50 ml IVP PRN PRN; Protocol PRN Reason: hypoglycemia protocol Diphenhydramine HCl (Benadryl) 25 mg IVP Q6H PRN PRN Reason: ITCHING Last Admin: 05/03/20 15:15 Dose: 25 mg Documented by: Ferrous Sulfate (Ferrous Sulfate) 325 mg PO BIDWM DEBBIE Last Admin: 05/03/20 08:31 Dose: Not Given Documented by: Furosemide (Lasix) 80 mg IVP Q12H DEBBIE Last Admin: 05/03/20 11:24 Dose: 80 mg Documented by: Gabapentin (Neurontin) 400 mg PO DAILY DEBBIE Last Admin: 05/03/20 08:31 Dose: Not Given Documented by: Glucagon (Glucagen) 1 mg IM ONCE PRN; Protocol PRN Reason: Adult Acute Hypoglycemia Prot. Hydralazine HCl (Apresoline) 25 mg PO TID [facility] Last Admin: 05/03/20 15:25 Dose: Not Given Documented by: Dextrose (D5w) 500 mls @ 100 mls/hr IV ONCE PRN; Protocol PRN Reason: Adult Acute Hypoglycemia Prot Furosemide 100 mg/ Sodium (Chloride) 50 mls @ 0 mls/hr IV .Q0M DEBBIE; Protocol Last Admin: 04/27/20 00:43 Dose: 15 mg/hr, 7.5 mls/hr Documented by: Piperacillin Sod/Tazobactam (Sod 3.375 gm/ Sodium Chloride) 50 mls @ 12.5 mls/hr IV Q12H DEBBIE; Protocol Last Admin: 05/03/20 12:02 Dose: 12.5 mls/hr Documented by: Amiodarone HCl 900 mg/Dextrose/ IV Miscellaneous Supplies 518 mls @ 0 mls/hr IV .Q0M DEBBIE; Protocol Last Admin: 05/03/20 15:15 Dose: 0.5 mg/min, 17.3 mls/hr Documented by: Dexmedetomidine HCl 400 mcg/ (Sodium Chloride) 104 mls @ 0 mls/hr IV .Q0M DEBBIE; Protocol Last Titration: 05/03/20 14:58 Dose: 0.01 mcg/kg/hr, 0.2 mls/hr Documented by: Insulin Aspart (Novolog) 0 unit SUBCUT BEDTIME DEBBIE; Protocol Last Admin: 05/02/20 21:40 Dose: Not Given Documented by: Insulin Aspart (Novolog) 0 unit SUBCUT TIDWM [facility]; Protocol Last Admin: 05/03/20 11:15 Dose: Not Given Documented by: Isosorbide Mononitrate (Imdur) 60 mg PO QAM [facility] Last Admin: 05/03/20 05:29 Dose: Not Given Documented by: Lidocaine HCl (Lidocaine 2% Jelly) 1 applic TOPICAL DAILY PRN PRN Reason: ITCHING Lorazepam (Ativan) 0.5 mg IVP Q4H PRN PRN Reason: ANXIETY Last Admin: 05/03/20 14:38 Dose: 0.5 mg Documented by: Metolazone (Zaroxolyn) 5 mg PO DAILY [facility] Last Admin: 05/03/20 08:31 Dose: Not Given Documented by: Metoprolol Tartrate (Lopressor) 25 mg PO BID [facility] Last Admin: 04/26/20 08:11 Dose: Not Given Documented by: Metoprolol Tartrate (Metoprolol Tartrate) 5 mg IV Q4H PRN PRN Reason: HR greater than 110 Last Admin: 04/30/20 23:58 Dose: 5 mg Documented by: Multi-Ingredient Ointment (Eucerin) 1 applic TOPICAL BID [facility] Last Admin: 05/03/20 09:51 Dose: 1 applic Documented by: Naloxone HCl (Narcan) 0.1 mg IVP Q2M PRN PRN Reason: OPIATERV Ondansetron HCl (Zofran) 4 mg IVP Q8H PRN PRN Reason: vomiting, or N/V if npo Pantoprazole Sodium (Protonix) 40 mg IVP Q12H [facility] Last Admin: 05/03/20 11:23 Dose: 40 mg Documented by: Potassium Chloride (Potassium Chloride Oral Liquid) 10 meq PO DAILY [facility] Last Admin: 05/03/20 08:31 Dose: Not Given Documented by: Trazodone HCl (Desyrel) 50 mg PO BEDTIME [facility] Last Admin: 05/02/20 20:20 Dose: Not Given Documented by: Vitals/I&O/Wt Last Vital Signs Temp 99.2 F 05/03/20 08:00 Pulse 80 05/03/20 15:38 Resp 20 H 05/03/20 15:38 BP 115/65 05/03/20 14:15 Pulse Ox 95 05/03/20 15:38 05/03/20 05/03/20 05/03/20 06:59 14:59 22:59 Intake Total 166.759 / 301.083 643.333 / 643.333 Output Total 300 / 775 Balance -133.241 / -473.917 643.333 / 643.333 Weight last 48 hrs Weight 169 lb 1.6 oz Weight 171 lb 1.6 oz Physical Exam Narrative: EXAM NARRATIVE: GENERAL: Patient is agitated and somewhat cooperative and responds appropriately to verbal commands HEENT: Minimal pallor, icterus or lymphadenopathy.Oral cavity: There are no mucous membrane lesions. NECK: Trachea appears to be central. No masses noted. No JVD or thyromegaly appreciated. RESPIRATORY: Chest is symmetrical. No intercostals muscle retraction or any accessory muscle activation. There is no chest wall tenderness. Breath sounds are heard bilaterally. No rales or rhonchi heard. No evidence of any consolidation. Scattered crackles in the bases. Breath sounds are diminished in the bases BREASTS: Deferred. HEART: The heart sounds are normal. No S3 or S4. Ejection systolic murmur grade 3/6 at the base of the heart.. No pericardial rub ABDOMEN: No vessel pulsations or distention. No tenderness. No organomegaly appreciated. Bowel sounds are normally heard. : Deferred. RECTAL: Deferred. LYMPHATIC: No lymphadenopathy noted in the neck. EXTREMITIES: Trace edema with no cyanosis.. No clubbing. Peripheral pulses are palpated in fairly good volume and amplitude MUSCULOSKELETAL: No acute joint deformities or swelling SKIN: There are no significant rashes or ecchymosis NEUROPSYCHIATRIC: As mentioned above Urinary Catheter Management^: Whitley: Cath Placed During This Visit: yes Reason for Continuing Indwelling Catheter: Accurate Measurement of Urinary Output in Critically Ill Patients Urinary Catheter Date of Insertion: 04/22/20 Urinary Catheter Time of Insertion: 18:43 Data : 05/04/20 03:27 05/04/20 03:27 Other Labs: Laboratory Last Values WBC 9.1 10^3/uL (4.0-10.0) 05/03/20 03:40 RBC 3.91 10^6/uL (4.1-5.3) L 05/03/20 03:40 Hgb 10.0 g/dL (11.7-16.6) L 05/03/20 03:40 Hct 34.8 % (42.0-52.0) L 05/03/20 03:40 MCV 89.0 fL (80-94) 05/03/20 03:40 MCH 25.6 pg (28.0-34.0) L 05/03/20 03:40 MCHC 28.7 g/dL (30.0-36.0) L 05/03/20 03:40 RDW 16.1 % (12.1-15.1) H 05/03/20 03:40 Plt Count 244 10^3/cmm (130-400) 05/03/20 03:40 MPV 9.9 fL (7.4-10.4) 05/03/20 03:40 Neut % (Auto) 74.4 % 05/03/20 03:40 Lymph % (Auto) 10.3 % 05/03/20 03:40 [place] % (Auto) 9.8 % 05/03/20 03:40 Eos % (Auto) 3.4 % 05/03/20 03:40 Baso % (Auto) 1.1 % 05/03/20 03:40 Neut # (Auto) 6.79 10^3/uL (1.8-7.7) 05/03/20 03:40 Lymph # (Auto) 0.9 10^3/uL (0.8-4.8) 05/03/20 03:40 [place] # (Auto) 0.9 10^3/uL (0.2-0.9) 05/03/20 03:40 Eos # (Auto) 0.3 10^3/uL (0.0-0.8) 05/03/20 03:40 Baso # (Auto) 0.1 10^3/uL (0.0-0.1) 05/03/20 03:40 Nucleated RBC % (auto) 0 % 05/03/20 03:40 Nucleated RBCs # 0.0 /100WBC 05/03/20 03:40 PT 15.50 SECONDS (12.1-14.9) H 04/27/20 03:40 INR 1.19 (0.8-1.2) 04/27/20 03:40 Specimen Type Arterial 05/02/20 04:50 Sample Site Brachial, right 05/02/20 04:50 ABG pH 7.34 (7.35-7.45) L 05/02/20 04:50 ABG pCO2 43.5 mmHg (35-45) 05/02/20 04:50 ABG pO2 58.9 mmHg (80.0-100.0) L 05/02/20 04:50 ABG HCO3 23.6 mmol/L (22-26) 05/02/20 04:50 ABG O2 Saturation 93.3 04/21/20 09:39 ABG Base Excess -2.1 mmol/L (-2.0-2.0) L 05/02/20 04:50 Lion Test Pos 05/02/20 04:50 A-a O2 Gradient 17.0 mmHg (5-10) H 04/22/20 23:20 Hematocrit 30.8 % (42-52) L 05/02/20 04:50 Hgb O2 Saturation 94.2 % (95-100) L 04/22/20 23:20 Carboxyhemoglobin 1.8 %THgb (0.4-20.1) 04/22/20 23:20 Methemoglobin 0.7 % (0.4-1.5) 04/22/20 23:20 Total Hemoglobin 8.9 g/dL (14-18) L 04/22/20 23:20 Sodium 143.0 mmol/L (131-143) 04/21/20 09:39 Potassium 4.6 mmol/L (3.5-5.0) 04/21/20 09:39 Glucose 149.0 mg/dL (70-115) H 04/21/20 09:39 Ionized Calcium 1.3 mmol/L (1.1-1.4) 04/21/20 09:39 O2 Delivery Device Nc 05/02/20 04:50 O2 Liters/Min 10.0 % 05/02/20 04:50 FiO2 35.0 % 04/25/20 14:45 Tidal Volume 0.40 04/25/20 14:45 PEEP 5.0 cmH20 04/25/20 14:45 Lead Press Operator ID Guido 05/02/20 04:50 Sodium 141 mmol/L (136-145) 05/03/20 03:40 Potassium 3.4 mmol/L (3.5-5.1) L 05/03/20 03:40 Chloride 99 mmol/L (98-107) 05/03/20 03:40 Carbon Dioxide 19 mmol/L (22-29) L 05/03/20 03:40 Anion Gap 26.4 (5-19) H 05/03/20 03:40 BUN 35 mg/dL (8-23) H 05/03/20 03:40 Creatinine 3.4 mg/dL (0.7-1.2) H 05/03/20 03:40 GFR Calculation Not Reportable 05/03/20 03:40 Glucose 163 mg/dL (65-115) H 05/03/20 03:40 POC Glucose 104 mg/dL (70-110) 05/03/20 11:06 Estimat Average Glucose 192 04/21/20 09:46 Hemoglobin A1c 8.3 % (4.0-6.0) H 04/21/20 09:46 Calculated Osmolality 304 mOsm/kg (285-295) H 05/03/20 03:40 Lactic Acid 0.8 mmol/L (0.5-2.2) 04/25/20 03:15 Calcium 9.4 mg/dL (8.5-10.5) 05/03/20 03:40 Phosphorus 5.0 mg/dL (2.5-4.5) H 04/29/20 05:48 Magnesium 2.6 mg/dL (1.7-2.3) H 04/26/20 03:16 Iron 27 ug/dL (59-158) L 04/24/20 04:34 TIBC 237 mcg/dl 04/24/20 04:34 % Saturation 11.3 % (20-50) L 04/24/20 04:34 Unsat Iron Binding 210 ug/dL (112-347) 04/24/20 04:34 Total Bilirubin 0.3 mg/dL (0.15-1.2) 05/03/20 03:40 AST 20 U/L (0-40) 05/03/20 03:40 ALT 16 U/L (0-41) 05/03/20 03:40 Alkaline Phosphatase 130 IU/L (40-130) 05/03/20 03:40 Creatine Kinase 344 U/L (39-308) H* 04/25/20 03:15 Troponin T Gen 5 ng/L Cancelled 04/23/20 00:08 Troponin T Baseline 45 ng/L (0-15) H 04/23/20 00:08 Troponin T 120 Minute 47.99 ng/L (0-15) H 04/23/20 02:01 Delta Troponin T 2.99 ABS# (0-10) 04/23/20 02:01 Troponin T Hi Sens 6Hr 49.57 ng/L (0-15) H 04/23/20 06:44 Troponin T Hi Sens 6Hr Delta 4.57 ng/L (0-12) 04/23/20 06:44 C-Reactive Protein 34.8 mg/L (0.0-4.9) H 04/24/20 04:34 NT-Pro-B Natriuret Pep 3607 pg/mL (0-450) H 04/22/20 23:25 Total Protein 7.0 g/dL (6.6-8.7) 05/03/20 03:40 Albumin 3.5 g/dL (3.5-5.2) 05/03/20 03:40 Globulin 3.5 g/dL (1.3-4.6) 05/03/20 03:40 Lipase 26 U/L (13-60) 04/21/20 09:46 Procalcitonin 0.35 ng/mL (0-0.5) 04/27/20 03:40 TSH 15.67 uIU/mL (0.27-4.20) H 04/21/20 09:46 Free T4 0.93 ng/dL (0.82-1.77) 04/22/20 05:37 Free T3 2.0 PG/ML (2.0-4.4) 04/22/20 05:37 Urine Color Yellow (Yellow) 05/01/20 18:05 Urine Appearance Hazy (CLEAR) A 05/01/20 18:05 Urine pH 5 (5-7) 05/01/20 18:05 Ur Specific [place] 1.015 (1.005-1.030) 05/01/20 18:05 Urine Protein 2+ (Negative) H 05/01/20 18:05 Urine Glucose (UA) Norm (Normal) 05/01/20 18:05 Urine Ketones 1+ (Negative) H 05/01/20 18:05 Urine Blood 3+ (Negative) H 05/01/20 18:05 Urine Nitrate Negative (Negative) 05/01/20 18:05 Urine Bilirubin Neg (Negative) 05/01/20 18:05 Urine Urobilinogen Neg mg/dL (Negative) 05/01/20 18:05 Ur Leukocyte Esterase Negative (Negative) 05/01/20 18:05 Urine RBC 25-40 /hpf (0-2) H 05/01/20 18:05 Urine WBC 0-4 /hpf (0-5) H 05/01/20 18:05 Ur Squamous Epith Cells 10-15 /hpf (0-5) H 05/01/20 18:05 Amorphous Sediment 3+ /hpf 05/01/20 18:05 Urine Bacteria 2+ /hpf (NONE) H 05/01/20 18:05 Hyaline Casts 0-4 /lpf H 04/21/20 11:24 Urine Mucus Trace /hpf 04/21/20 11:24 U Random Total Protein 274 mg/dL 04/22/20 20:05 Urine Creatinine 98 mg/dL (39-259) 04/22/20 20:05 Protein/Creatinin Ratio 2.80 mg/mg CR 04/22/20 20:05 Vancomycin Trough 13.0 ug/mL (10-15) 04/28/20 13:30 Hep Bs Antigen Non-reactive (Nonreactive) 04/27/20 03:40 Blood Type A Positive 04/21/20 14:47 Rho(D) Type Positive 04/21/20 14:47 Antibody Screen Negative 04/21/20 14:47 Crossmatch See Detail 04/21/20 14:47 A&P Assessment and plan (1) Acute on chronic diastolic (congestive) heart failure: Patient seems to have intermittent diastolic heart failure. Most likely this is related to left-ventricular diastolic dysfunction and arrhythmia. She may continue on the current medications. Status: Acute (2) Atrial fibrillation with rapid ventricular response: Currently on IV amiodarone. May continue on the same. Status: Resolved (3) Acute kidney injury superimposed on chronic kidney disease: The BUN and the creatinine coming down significantly. Dialysis as per the nephrology. Status: Acute (4) Diabetes mellitus: Blood sugar seems to be fairly under control Status: Chronic Qualifiers: Diabetes mellitus complication status: with hyperglycemia Diabetes mellitus correction insulin use: without termite exterminator helper use Diabetes mellitus type: type 2 Qualified Code(s): E11.65 - Type 2 diabetes mellitus with hyperglycemia (5) Anemia: The hemoglobin seems to be fairly stable at this time. May continue on the current measures. Status: Acute Qualifiers: Anemia type: iron deficiency Iron deficiency anemia type: chronic blood loss Qualified Code(s): D50.0 - Iron deficiency anemia secondary to blood loss (chronic) Additional A&P Information Other problems are Hypokalemia Altered mental status/agitated dementia Attestations Medical Necessity Statement*: Position as per the primary Coding Level of Care Code Acute Maintenance [facility] Fwd Diagnoses Acute on chronic diastolic (congestive) heart failure I50.33 Atrial fibrillation with rapid ventricular response I48.91 Acute kidney injury superimposed on chronic kidney disease N17.9; N18.9 Diabetes mellitus E11.65 Diabetes mellitus complication status: with hyperglycemia Diabetes mellitus termite exterminator helper insulin use: without termite exterminator helper use Diabetes mellitus type: type 2 Anemia D50.0 Anemia type: iron deficiency Iron deficiency anemia type: chronic blood loss
[2020-05-03 17:39] LABS: Glucose Point of Care 126 mg/dL (70-110)
[2020-05-03] MEDS: dexmedetomidine 400 MCG in sodium chloride 0.9% (100 ml) 100 ML 21.3 MCG IV (21:21)
[2020-05-03 21:27] LABS: Glucose Point of Care 167 mg/dL (70-110)
[2020-05-04] VITALS (31 sets, daily range): BP systolic 105–156; BP diastolic 55–79; PULSE 52–87; RESP 14–27; TEMP 35.8–37.3; O2SAT 90–99
[2020-05-04] MEDS: piperacillin-tazobactam 3.375 GM in sodium chloride 0.9% (plus) 50 ML IV ×2 (01:58→12:30)
[2020-05-04] MEDS: dexmedetomidine 400 MCG in sodium chloride 0.9% (100 ml) 100 ML 21.3 MCG IV ×2 (02:05→06:18)
[2020-05-04] MEDS: LORazepam 2 mg/mL INJ 1 mL 0.5 MG IVP ×2 (03:00→21:28)
--- NOTE | 2020-05-04 03:06 | PC.NURSE ---
Ativan PRN Patient became increasingly agitated. Pulling at tubes, IVs, catheter while being in restraints. Patient was able to pull himself down in bed with the restraints. Precedex still infusing. 0.5 IVP Ativan given. Vitals signs WNL. Resp even. 2L/NC. Sitter at bedside.
[2020-05-04] MEDS: ipratropium-albuterol 3 mL Neb INHALATION ×5 (03:32→20:35)
[2020-05-04 04:20] LABS: Basophils # 0.1 10^3/uL (0.0-0.1); Basophils % 1.2 %; Eosinophils # 0.3 10^3/uL (0.0-0.8); Eosinophils % 3.9 %; Hematocrit 34.3 % (42.0-52.0); Hemoglobin 9.9 g/dL (11.7-16.6); Lymphocytes % 12.8 %; Mean Corpuscular HGB Conc 28.9 g/dL (30.0-36.0); Mean Corpuscular Hemoglobin 25.6 pg (28.0-34.0); Mean Corpuscular Volume 88.9 fL (80-94); Mean Platelet Volume 10.2 fL (7.4-10.4); Monocytes # 0.9 10^3/uL (0.2-0.9); Monocytes % 11.3 %; Neutrophils # 5.34 10^3/uL (1.8-7.7); Nucleated Red Blood Cells % 0 %; Platelet Count 218 10^3/cmm (130-400); Red Blood Count 3.86 10^6/uL (4.1-5.3); Red Cell Distribution Width 16.4 % (12.1-15.1); White Blood Count 7.6 10^3/uL (4.0-10.0)
[2020-05-04 04:57] LABS: Alanine Aminotransferase 16 U/L (0-41); Albumin Level 3.2 g/dL (3.5-5.2); Alkaline Phosphatase 122 IU/L (40-130); Aspartate Amino Transferase 18 U/L (0-40); Blood Urea Nitrogen 20 mg/dL (8-23); Calcium 8.8 mg/dL (8.5-10.5); Carbon Dioxide 21 mmol/L (22-29); Chloride 95 mmol/L (98-107); Globulin 3.6 g/dL (1.3-4.6); Glucose 190 mg/dL (65-115); Osmolality Calculated 292 mOsm/kg (285-295); Sodium 137 mmol/L (136-145); Total Bilirubin 0.3 mg/dL (0.15-1.2); Total Protein 6.8 g/dL (6.6-8.7)
[2020-05-04 05:04] LABS: Anion Gap 24.2 (5-19); Potassium 3.2 mmol/L (3.5-5.1)
--- NOTE | 2020-05-04 08:00 | CT_ITS ---
WS: [id number] CT ABDOMEN PELVIS TECHNIQUE: Noncontrast CT of the abdomen and pelvis with coronal and sagittal reformatted images. CLINICAL INFORMATION: Microscopic hematuria, unidentified structure medial to the right kidney with b lood flow COMPARISON: Ultrasound May 02, 2020 DLP: 1895.[address] scans at [facility] use at least one of these dose optimization techniques: automat ed exposure control; mA and/or kV adjustment per patient size (includes targeted exams where dose is matched to clinical indication); or iterative reconstruction. FINDINGS: Lobulated intraluminal filling defect in the cecum measuring 5.4 x 3.9 cm suspicious for c arcinoma. Recommend further evaluation with colonoscopy. This likely corresponds to the lesion seen o n ultrasound. Hepatomegaly. Vicarious excretion of contrast in the gallbladder. Small bilateral pleural effusions r ight greater than left with subsegmental atelectasis in the lung bases. Bibasilar hazy infiltrates. Normal GE junction. Fatty atrophy of the pancreas. Splenic artery calcification. Normal noncontrast s pleen. Normal caliber abdominal aorta. Aortic calcification. Adrenal glands are normal. Right adrenal angiomyolipoma measuring 2.0 cm. Noncontrast kidneys are unr emarkable. No hydronephrosis. Whitley catheter. Sigmoid diverticulosis. No evidence of small or large bowel obstruction. Prior small bowel anastomosi s. Tiny fat-containing umbilical hernia. CT/CT kidney stone [id number] IMPRESSION: 1. Dense solid-appearing intraluminal lesion involving the cecum suspicious fo r carcinoma. This measures approximately 5.4 x 3.9 CM. Recommend further evalua tion with colonoscopy. 2. No evidence of high-grade small or large bowel obstruction. Prior small bow el anastomosis. 3. Sigmoid diverticulosis. 4. Small right greater than left pleural effusions with compressive atelectasi s in the lung bases. 5. No hydronephrosis in either kidney. 6. Right adrenal angiomyolipoma measuring 2.1 cm unchanged.
--- NOTE | 2020-05-04 08:00 | CT_ITS ---
WS: [id number] CT TEMPORAL BONES TECHNIQUE: Noncontrast CT of the temporal bones with coronal and sagittal reformatted images. CLINICAL INFORMATION: mastoid effusion DLP: 964.[address] scans at [facility] use at least one of these dose optimization techniques: automat ed exposure control; mA and/or kV adjustment per patient size (includes targeted exams where dose is matched to clinical indication); or iterative reconstruction. FINDINGS: Partial opacification left mastoid air cells and hypotympanum middle ear consistent with ot omastoiditis. No evidence of bony destruction or subperiosteal abscess. No evidence of osteomyelitis. Right mastoid air cells are well aerated with mild mucosal thickening in the right mastoid tip. Righ t middle ear appears well aerated. Paranasal sinuses appear well aerated where visualized. RIGHT: Partial opacification right mastoid tip. Normal external auditory canal. Ossicles are normal in appea ari. Middle ear is well aerated. Normal tegmen tympani. Semicircular canals and cochlea are normal in appearance. Prussak's space is normal. Normal inner ear structures. Normal vestibular aqueduct. Fa cial nerve recess is normal. LEFT: Opacification left mastoid air cells. Opacification of the aditus ad antrum and hypotympanum. Remaind er of the middle ear is well aerated. Normal external auditory canal. Ossicles are normal in appearan ce. Normal tegmen tympani. Semicircular canals and cochlea are normal in appearance. Prussak's space is normal. Normal inner ear structures. Normal vestibular aqueduct. Facial nerve recess is normal. Visualized intracranial contents and posterior fossa are normal. CT/CT temporal bone wo con* [id number] IMPRESSION: 1. Partial opacification left middle ear and mastoid air cells consistent with otomastoiditis. No evidence of bony destruction or osteomyelitis. 2. Partial opacification of the right mastoid tip. Right mastoid air cells and middle ear are well aerated. 3. Ossicles and inner ear structures are normal in appearance bilaterally. 4. No other significant findings.
[2020-05-04 08:01] LABS: Glucose Point of Care 188 mg/dL (70-110)
[2020-05-04] MEDS: pantoprazole 40 mg SDV IVP ×2 (08:22→21:11)
[2020-05-04] MEDS: FUROsemide 10 mg/mL SDV 10mL 80 MG IVP ×2 (08:25→18:02)
[2020-05-04] MEDS: lidocaine 1% 5 ML in potassium chloride premix 100 ML 50 ML IV (08:28)
[2020-05-04] MEDS: eucerin cream 113 gm Jar 1 APPLIC TOPICAL ×2 (08:29→18:03)
--- NOTE | 2020-05-04 11:00 | PC.NURSE ---
One on one sitter released. Pt remains on Preceex decreased to 0.7mcg/kg/min. Pt resting comfortably at this time.
--- NOTE | 2020-05-04 11:30 | PC.NURSE ---
Pt to CT and bck . Tolerated fair. Pt asking for back, leg and arm scratching.
--- NOTE | 2020-05-04 11:52 | PM.PN ---
Subjective Subjective: Interval history: Making some progress, slowly improving cognitively, dialyzed yesterday, tolerated this well No edema and no other volume related issues Whitley in place Temp line is in place Medications: Reviewed: Yes Medication Review Details: Current Medications Acetaminophen (Tylenol) 650 mg PO Q6H PRN PRN Reason: Mild/Mod Pain Or Temp >/= 101 Last Admin: 04/29/20 18:06 Dose: 650 mg Documented by: Albuterol/Ipratropium (Duoneb) 3 ml INHALATION Q4H.RESPIRATORY DEBBIE Last Admin: 05/03/20 15:33 Dose: 3 ml Documented by: Amiodarone HCl (Cordarone) 200 mg PO DAILY [facility] Last Admin: 04/28/20 08:58 Dose: Not Given Documented by: Amlodipine Besylate (Norvasc) 10 mg PO DAILY [facility] Last Admin: 04/23/20 09:39 Dose: 10 mg Documented by: Atorvastatin Calcium (Lipitor) 20 mg PO BEDTIME DEBBIE Last Admin: 05/02/20 20:20 Dose: Not Given Documented by: Bisacodyl (Dulcolax) 10 mg PO DAILY PRN PRN Reason: CONSTIPATION Dextrose (D50w) 25 ml IVP ONCE PRN; Protocol PRN Reason: hypoglycemia protocol Dextrose (D50w) 50 ml IVP PRN PRN; Protocol PRN Reason: hypoglycemia protocol Diphenhydramine HCl (Benadryl) 25 mg IVP Q6H PRN PRN Reason: ITCHING Last Admin: 05/03/20 15:15 Dose: 25 mg Documented by: Ferrous Sulfate (Ferrous Sulfate) 325 mg PO BIDWM DEBBIE Last Admin: 05/03/20 08:31 Dose: Not Given Documented by: Furosemide (Lasix) 80 mg IVP Q12H DEBBIE Last Admin: 05/03/20 11:24 Dose: 80 mg Documented by: Gabapentin (Neurontin) 400 mg PO DAILY [facility] Last Admin: 05/03/20 08:31 Dose: Not Given Documented by: Glucagon (Glucagen) 1 mg IM ONCE PRN; Protocol PRN Reason: Adult Acute Hypoglycemia Prot. Hydralazine HCl (Apresoline) 25 mg PO TID [facility] Last Admin: 05/03/20 15:25 Dose: Not Given Documented by: Dextrose (D5w) 500 mls @ 100 mls/hr IV ONCE PRN; Protocol PRN Reason: Adult Acute Hypoglycemia Prot Furosemide 100 mg/ Sodium (Chloride) 50 mls @ 0 mls/hr IV .Q0M DEBBIE; Protocol Last Admin: 04/27/20 00:43 Dose: 15 mg/hr, 7.5 mls/hr Documented by: Piperacillin Sod/Tazobactam (Sod 3.375 gm/ Sodium Chloride) 50 mls @ 12.5 mls/hr IV Q12H DEBBIE; Protocol Last Admin: 05/03/20 12:02 Dose: 12.5 mls/hr Documented by: Amiodarone HCl 900 mg/Dextrose/ IV Miscellaneous Supplies 518 mls @ 0 mls/hr IV .Q0M DEBBIE; Protocol Last Admin: 05/03/20 15:15 Dose: 0.5 mg/min, 17.3 mls/hr Documented by: Dexmedetomidine HCl 400 mcg/ (Sodium Chloride) 104 mls @ 0 mls/hr IV .Q0M DEBBIE; Protocol Last Titration: 05/03/20 14:58 Dose: 0.01 mcg/kg/hr, 0.2 mls/hr Documented by: Insulin Aspart (Novolog) 0 unit SUBCUT BEDTIME DEBBIE; Protocol Last Admin: 05/02/20 21:40 Dose: Not Given Documented by: Insulin Aspart (Novolog) 0 unit SUBCUT TIDWM DEBBIE; Protocol Last Admin: 05/03/20 11:15 Dose: Not Given Documented by: Isosorbide Mononitrate (Imdur) 60 mg PO QAM [facility] Last Admin: 05/03/20 05:29 Dose: Not Given Documented by: Lidocaine HCl (Lidocaine 2% Jelly) 1 applic TOPICAL DAILY PRN PRN Reason: ITCHING Lorazepam (Ativan) 0.5 mg IVP Q4H PRN PRN Reason: ANXIETY Last Admin: 05/03/20 14:38 Dose: 0.5 mg Documented by: Metolazone (Zaroxolyn) 5 mg PO DAILY [facility] Last Admin: 05/03/20 08:31 Dose: Not Given Documented by: Metoprolol Tartrate (Lopressor) 25 mg PO BID [facility] Last Admin: 04/26/20 08:11 Dose: Not Given Documented by: Metoprolol Tartrate (Metoprolol Tartrate) 5 mg IV Q4H PRN PRN Reason: HR greater than 110 Last Admin: 04/30/20 23:58 Dose: 5 mg Documented by: Multi-Ingredient Ointment (Eucerin) 1 applic TOPICAL BID [facility] Last Admin: 05/03/20 09:51 Dose: 1 applic Documented by: Naloxone HCl (Narcan) 0.1 mg IVP Q2M PRN PRN Reason: OPIATERV Ondansetron HCl (Zofran) 4 mg IVP Q8H PRN PRN Reason: vomiting, or N/V if npo Pantoprazole Sodium (Protonix) 40 mg IVP Q12H [facility] Last Admin: 05/03/20 11:23 Dose: 40 mg Documented by: Potassium Chloride (Potassium Chloride Oral Liquid) 10 meq PO DAILY [facility] Last Admin: 05/03/20 08:31 Dose: Not Given Documented by: Trazodone HCl (Desyrel) 50 mg PO BEDTIME [facility] Last Admin: 05/02/20 20:20 Dose: Not Given Documented by: Vitals/I&O/Wt Last Vital Signs Temp 97.9 F 05/04/20 04:00 Pulse 56 L 05/04/20 08:30 Resp 20 H 05/04/20 08:29 BP 121/60 05/04/20 06:00 Pulse Ox 97 05/04/20 08:29 05/03/20 05/04/20 05/04/20 22:59 06:59 14:59 Intake Total 285.472 / 928.805 395.470 / 1324.275 51.475 / 51.475 Output Total 250 / 250 300 / 550 Balance 35.472 / 678.805 95.470 / 774.275 51.475 / 51.475 Weight last 48 hrs Weight 76.204 kg Weight 76.702 kg Physical Exam Narrative: EXAM NARRATIVE: Constitutional: Awake and chatting HEENT: Wet mucosa, no jvp, non icteric Lungs: Bilaterally clear coarse, diminished all lung zones CVS: S1 S2, no murmurs Abdo: Soft, BS ok Ext 4: global edema, peripheral perfusion with no cyanosis Neurological: Grossly non-focal Urinary Catheter Management^: Whitley: Cath Placed During This Visit: yes Reason for Continuing Indwelling Catheter: Accurate Measurement of Urinary Output in Critically Ill Patients Urinary Catheter Date of Insertion: 04/22/20 Urinary Catheter Time of Insertion: 18:43 Data : 05/04/20 03:27 05/04/20 03:27 A&P Additional A&P Information 1. JED on CKD Consistent with CRS although cause is not entirely clear Dialyzed yesterday, plan next session on Friday, monitoring for recovery Strict ins and outs, avoid usual nephrotoxic medication. 2. Lytes - K rider again today - highest conc bath is 3K 3. Hypertension, Afib Hemodynamics remain stable 4. Anemia - serial H/H, low iron sat, s/p venofer 5. AMS - likely toxic encephalopathy - slight improvement - may need tunnelled line prior to transfer to [facility] Antonino Harden MD Nephrology [phone] Patient seen and examined via telemedicine, with the assistance of the bedside RN Attestations Medical Necessity Statement*: eval for JED Coding Level of Care Code Acute Ore Charger for Maylin Morales
--- NOTE | 2020-05-04 12:22 | PM.PN ---
Subjective Subjective: Interval history: Today he is actually more alert. He tells me his name. When asked where he is he thinks he is in [facility], but when asked about the state after some thought does say initially [place], but then corrects himself to [place]. Denies any pain. Denies any headache. Denies any earache. He has been itching pretty much all over, although has no visible rash. Moisturizer has been applied today. Vitals/I&O/Wt Last Vital Signs Temp 97.9 F 05/04/20 04:00 Pulse 63 05/04/20 12:15 Resp 20 H 05/04/20 12:14 BP 121/60 05/04/20 06:00 Pulse Ox 97 05/04/20 12:14 05/03/20 05/04/20 05/04/20 22:59 06:59 14:59 Intake Total 285.472 / 928.805 395.470 / 1324.275 104.000 / 104.000 Output Total 250 / 250 300 / 550 Balance 35.472 / 678.805 95.470 / 774.275 104.000 / 104.000 Weight last 48 hrs Weight 76.204 kg Weight 76.702 kg Physical Exam Const: COMMON NORMALS: no acute distress ORIENTATION/CONSCIOUSNESS: Yes confused OTHER: More alert and interactive. Follows some commands. Still trails off, and then starts repeating himself. Perseverates on pruritus. HENMT: COMMON NORMALS: oropharynx normal NOSE: Other nasal findings present (Wound on bridge of the nose covered by dressing. ) Neck/C-Spine: COMMON NORMALS: no JVD Chest: OTHER: Temp HD catheter Resp: COMMON NORMALS: normal respiratory effort and clear to auscultation bilaterally AUSCULTATION: clear to auscultation bilaterally Cardio: COMMON NORMALS: no JVD, S1 normal heart sound present, S2 normal heart sound present and No murmurs present (Cardio) RATE: tachycardic HEART SOUNDS: S1 normal heart sound present and S2 normal heart sound present GI: COMMON NORMALS: Normal to inspection, nondistended, normoactive bowel sounds present, Soft to palpation and non-tender PALPATION: Yes Soft to palpation Extremity: COMMON NORMALS: no joint enlargement and no pedal edema Neuro: COMMON NORMALS: moves all extremities Skin: OTHER: No urticaria or other rash noted. Continued chronic pressure ulcer both sides of sacrum. Small raw area in the center. Urinary Catheter Management^: Jaquez: Cath Placed During This Visit: yes Reason for Continuing Indwelling Catheter: Accurate Measurement of Urinary Output in Critically Ill Patients Urinary Catheter Date of Insertion: 04/22/20 Urinary Catheter Time of Insertion: 18:43 Data : 05/04/20 03:27 05/04/20 03:27 A&P Assessment and plan (1) Acute on chronic diastolic (congestive) heart failure: Gradually improving. Weaning down on oxygen. Today he is little bit more awake. Denies shortness of breath. Denies chest pain. Continue HD. Has tunneled catheter already in place. CXR 05/01 with improved pulmonary consolidation and effusion (small). Improving heart failure. Pneumonia on CXR 04/27. No signs of sepsis. Continue Zosyn. For now continues n.p.o. as has not been reliably awake enough to safely tolerate oral intake or allow speech therapy reassessment. As he moves about the bed and pulls on different things, would not be a good candidate for NG currently. Acute diastolic CHF. Underwent hemodialysis. Blood pressure improved. Today we will again attempt to wean down on Precedex. Use Ativan as needed if restless/agitated. Extubated on 04/25/20 Cardiology consult appreciated Appreciate nephrology and surgical consultation. Status: Acute (2) Acute encephalopathy: His Precedex rate was increased again overnight. Where continue to try to wean. He is also been receiving Benadryl recently for itching of IV. Will discontinue as his mental status a little bit better this morning. May try Zyrtec instead. No rashes visible. Since mental status slightly better will discontinue one-to-one sitter. Continue attempts to gradually wean off Precedex. Continue hemodialysis. Also possible delirium superimposed on chronic dementia, possibly minimally conscious state which is improving. He is usually more responsive from what I am told, able to answer questions follow commands. Dyspnea multifactorial secondary to underlying infection with pneumonia UA is not impressive for UTI, but does have some microscopic hematuria. Back in July CT scan with findings that could have suggested pyelonephritis. Possible metabolic encephalopathy secondary to renal failure. Overnight received Ativan, started on Precedex. Home medications reviewed. CT of the head with noted increasing fluid in multiple left mastoid air cells consistent with left-sided mastoiditis. Otherwise mild generalized cerebral atrophy, mild senescent white matter disease. Continue speech reevaluation. Status: Acute (3) Chronic kidney disease: Chronic kidney disease increasing BUN and creatinine Appreciate nephrology consultation Dialysis catheter placed on 04/27/2020, Tolerating HD so far. BP is better. Status: Chronic (4) Lesion of cecum: Incidentally noted on CT. Discussed with his son. Concern is for malignancy. Would benefit from additional evaluation by colonoscopy, but not sure how aggressive patient and family would want to be. He states that his father had previously told him that he thought something has been wrong with him for some time, and it appears that he potentially may not have wanted to seek additional aggressive treatments for an illness like this. He notes that his father previously agreed to hemodialysis, but he is not sure about condition like potential malignancy. He will discuss further with his brother, as well as if his father's mental status continues to improve, would like to try to discuss further with him as well before proceeding with any aggressive diagnostic or interventional procedures. Status: Acute (5) Otitis media: Otomastoiditis noted on CT temporal bone. He has no local inflammation, there is no tenderness, erythema, warmth or other changes over the mastoid on either side. This is noted on the left side on CT. Ear examination without noted purulence or drainage. ENT currently not available until Friday, however, suspect that this is a more chronic process. There is no invasion noted locally and no osteomyelitis. Will start Ciprodex in addition to IV antibiotics he is getting, and will need to follow-up with ENT to reassess or consider other treatment options as appropriate. Status: Acute (6) Chronic anemia: Newly found cecal lesion, concerning for possible malignancy. Acute on chronic anemia also with iron deficiency Fecal occult blood positive this admission, no evidence of any active bleeding at this time, continue on PPI twice daily Consider further outpatient work-up once cardiopulmonary status improved Status: Acute (7) Ventricular tachycardia: Prior history of ventricular tachycardia, on amiodarone 200 mg daily, metoprolol 25mg, however unable to take due to inability to swallow medications. Continue amiodarone drip. Continue IV metoprolol PRN. Status: Resolved (8) High risk medication use: Status: Acute (9) Edema, peripheral: improved Status: Acute (10) Dyslipidemia: Continue home statin Status: Acute (11) Hypertension: Status: Acute Qualifiers: Hypertension type: essential hypertension Qualified Code(s): I10 - Essential (primary) hypertension (12) Dementia: With some sundowning at night Status: Chronic Qualifiers: Dementia type: Lewy body dementia Dementia behavioral disturbance: without behavioral disturbance Qualified Code(s): G31.83 - Dementia with Lewy bodies; F02.80 - Dementia in other diseases classified elsewhere without behavioral disturbance (13) Diabetes mellitus: Lantus held Sliding scale as needed Glipizide on hold Status: Chronic Qualifiers: Diabetes mellitus type: type 2 Diabetes mellitus intermediate designer insulin use: without intermediate designer use Diabetes mellitus complication status: with hyperglycemia Qualified Code(s): E11.65 - Type 2 diabetes mellitus with hyperglycemia (14) Atrial fibrillation: Improved. Paroxysmal atrial fibrillation with RVR. Continue amiodarone infusion. IV metoprolol scheduled due to inability to take p.o. Cardiology consultation appreciated Off of anticoagulation due to anemia Status: Acute Additional A&P Information Chronic sacral pressure ulcers. Reposition frequently. Keep dry. Mental status appears to be improving, perhaps may be able to resume oral nutrition soon. Difficult jaquez placement: Jaquez placed by Dr. Del Real, appreciate consultation. Follow in office. Pneumonia: No sepsis. Zosyn due to concern for pneumonia. Altered mental status is very slow to improve. Slow to wean off sedation. Has not been lucid enough to participate well with speech therapy. However sputum culture showing mixed ray of the upper respiratory tract. Vancomycin was stopped. Positive blood culture: Showing coag negative staph, likely contaminant as only in 1 bottle, repeat blood cultures show no growth to date. Lewy body dementia DVT prophylaxis: SCDs, no pharmacologic prophylaxis due to anemia Diet: NPO, ST eval GI ppx: PPI CODE STATUS: Full code Dispo: trasition to LTAC Attestations Medical Necessity Statement*: Continue admission for assessment management of acute encephalopathy, respiratory failure secondary to CHF in the setting of acute kidney injury, pneumonia, assessment of anemia, disposition planning. Coding Level of Care Code Acute Broke Worker for Maylin Fwcorrie Diagnoses Acute on chronic diastolic (congestive) heart failure I50.33 Acute encephalopathy G93.40 Chronic kidney disease N18.9 Lesion of cecum K63.9 Otitis media H66.90 Chronic anemia D64.9 Ventricular tachycardia I47.2 High risk medication use Z79.899 Edema, peripheral R60.9 Dyslipidemia E78.5 Hypertension I10 Hypertension type: essential hypertension Dementia G31.83; F02.80 Dementia type: Lewy body dementia Dementia behavioral disturbance: without behavioral disturbance Diabetes mellitus E11.65 Diabetes mellitus type: type 2 Diabetes mellitus intermediate designer insulin use: without intermediate designer use Diabetes mellitus complication status: with hyperglycemia Atrial fibrillation I48.91
[2020-05-04] MEDS: cetirizine 10 mg Tablet 5 MG PO ×2 (12:26→16:06)
--- NOTE | 2020-05-04 12:26 | PC.NURSE ---
Dr Taylor notified of pt's incessant itching. Zyrtec 5mg Po ordered and given.
--- NOTE | 2020-05-04 15:02 | PC.OT ---
OT TREATMENT ATTEMPTED SEVERAL TIMES TODAY. PATIENT IS SLEEPING SOUNDLY EACH TIME. WILL ATTEMPT AGAIN TOMORROW.
[2020-05-04] MEDS: hyDRALAzine 25 mg Tablet PO ×2 (16:07→21:22)
[2020-05-04] MEDS: ferrous sulfate EC 325 mg Tablet PO (16:07)
--- NOTE | 2020-05-04 16:07 | PC.NURSE ---
Dr Taylor notified of pt's incessant itching still present. Another Zyrtec 5mg Po ordered and given.
[2020-05-04] MEDS: dexmedetomidine 400 MCG in sodium chloride 0.9% (100 ml) 100 ML 10.7 MCG IV (17:09)
[2020-05-04 17:36] LABS: Glucose Point of Care 102 mg/dL (70-110)
[2020-05-04 17:36] LABS: Glucose Point of Care 132 mg/dL (70-110)
[2020-05-04] MEDS: ciprofloxacin-dexameth Otic Susp 7.5 mL Btl 4 DROP EAR-LEFT (18:04)
--- NOTE | 2020-05-04 19:30 | PC.NURSE ---
Dr Taylor notified that [facility] will not accept this pt if today's behaviors are any indication. Pt pulling at monitor wires. Pt pulled out another IV. Pt has REPETATIVE non stop : Let me scratch, let my arm loose (arm was loose). He has also made sexual requests of staff.
--- NOTE | 2020-05-04 19:45 | PC.NURSE ---
Report given to ZEB Palomares.
--- NOTE | 2020-05-04 19:52 | PC.NURSE ---
Shift summary: Pt alert to self. Possibly his actions. Pt was calm enough in the am to take him to CT and get the [facility] temporal area CTs completed. Pt has had repetitive statements about itching, turning his arms loose, helping him out. throughout most of the afternoon. Pt was able to swallow a pill once then a couple hours later have difficulty. swallowing another. Pt has pulled off monitoring wires and his gown numerous times. He has pulled out an IV in his left arm. He has made sexual suggestions to staff. Pt refused his dinner. Pt has had a bath and multiple rub downs with lotions to attempt to alleviate the itching. He remains in sinus rhythm. Precedex gtt , attempted to titrate off, unsuccessfully. He is at 0.7 mcg/min/kg now. He remains on amiodarone gtt at 0.5mg/min.He has had minimal urine putput, 350ml.
[2020-05-04] MEDS: trazodone 50 mg Tablet PO (21:22)
[2020-05-04] MEDS: atorvastatin 40 mg Tablet 20 MG PO (21:22)
[2020-05-04] MEDS: hyDROXYzine 25 mg Capsule PO (21:23)
[2020-05-04] MEDS: dexmedetomidine 400 MCG in sodium chloride 0.9% (100 ml) 100 ML 14.9 MCG IV (23:36)
[2020-05-05] VITALS (21 sets, daily range): BP systolic 104–139; BP diastolic 57–82; PULSE 62–86; RESP 16–28; TEMP 36.8–37.1; O2SAT 75–100
[2020-05-05] MEDS: ipratropium-albuterol 3 mL Neb INHALATION ×6 (00:26→20:51)
[2020-05-05] MEDS: piperacillin-tazobactam 3.375 GM in sodium chloride 0.9% (plus) 50 ML IV ×2 (01:03→12:08)
[2020-05-05 04:04] LABS: Basophils # 0.1 10^3/uL (0.0-0.1); Basophils % 1.1 %; Eosinophils # 0.3 10^3/uL (0.0-0.8); Eosinophils % 4.4 %; Hematocrit 33.7 % (42.0-52.0); Hemoglobin 9.8 g/dL (11.7-16.6); Lymphocytes # 0.9 10^3/uL (0.8-4.8); Lymphocytes % 12.4 %; Mean Corpuscular HGB Conc 29.1 g/dL (30.0-36.0); Mean Corpuscular Hemoglobin 25.7 pg (28.0-34.0); Mean Corpuscular Volume 88.2 fL (80-94); Mean Platelet Volume 10.2 fL (7.4-10.4); Monocytes # 0.8 10^3/uL (0.2-0.9); Monocytes % 10.8 %; Neutrophils # 5.32 10^3/uL (1.8-7.7); Neutrophils % 70.6 %; Nucleated Red Blood Cells % 0 %; Platelet Count 237 10^3/cmm (130-400); Red Blood Count 3.82 10^6/uL (4.1-5.3); Red Cell Distribution Width 16.6 % (12.1-15.1); White Blood Count 7.5 10^3/uL (4.0-10.0)
[2020-05-05 04:34] LABS: Alanine Aminotransferase 15 U/L (0-41); Albumin Level 3.4 g/dL (3.5-5.2); Alkaline Phosphatase 114 IU/L (40-130); Anion Gap 26.1 (5-19); Aspartate Amino Transferase 15 U/L (0-40); Blood Urea Nitrogen 28 mg/dL (8-23); Calcium 9.3 mg/dL (8.5-10.5); Carbon Dioxide 19 mmol/L (22-29); Chloride 97 mmol/L (98-107); Globulin 3.5 g/dL (1.3-4.6); Glucose 186 mg/dL (65-115); Osmolality Calculated 298 mOsm/kg (285-295); Potassium 3.1 mmol/L (3.5-5.1); Sodium 139 mmol/L (136-145); Total Bilirubin 0.3 mg/dL (0.15-1.2); Total Protein 6.9 g/dL (6.6-8.7)
--- NOTE | 2020-05-05 06:27 | PC.NURSE ---
Shift summary pt did take oral pm medications without difficulty. Pt remains confused, oriented to person and place only. Slept about half of the night. The other half, pt has been confused yelling out with echolalia. Pt still complains of itching, Vistaril administered and effective. This am pt refused morning medications and continues to yell and attempt to pull off tubing/wires. Pt remains in soft wrist restraints.
[2020-05-05 07:19] LABS: Glucose Point of Care 140 mg/dL (70-110)
[2020-05-05 07:19] LABS: Glucose Point of Care 169 mg/dL (70-110)
[2020-05-05] MEDS: dexmedetomidine 400 MCG in sodium chloride 0.9% (100 ml) 100 ML 14.9 MCG IV ×2 (08:13→18:32)
--- NOTE | 2020-05-05 08:32 | PC.OT ---
OT treatment attempted this morning. Therapist greeted pt saying good morning and pt responded there's nothing good about this morning . Pt declined doing bed level grooming, arm exercises, or any other therapeutic activities. Pt states that all he wants is to scratch his bottom (which has a sore). Will attempt treatment again later today. -BOB Michel/L
--- NOTE | 2020-05-05 09:06 | PC.CHAP ---
Pastoral Care Encounter/Spiritual Assessment Type of Contact [] Declined client integration manager visit [] Patient/Family/Request visit [] Outpatient visit [] Follow-up visit [] Physician referral [] Code/Alert [x] Routine visit [] Staff referral [] Actively dying [] Patient sleeping [] Family support [] [] Out of room [] Palliative care [] [] Receiving care in room [] Pre-surgical visit [] Trauma [] Long length of stay [] ICU visit [] Other: Relational/Emotional Strength [] Patient feels connected with others/family/visitors/staff [] Distress [] Loneliness/isolation [] Abandonment Spirituality of Patient [] Person of Layla [] Attends Druze of their Layla [] Believes in Prayer [] Reads Bible or Catholic materials [] There are Spiritual issues to be addressed Computer Network Support Specialist Interventions [x] Prayer [] Active listening [] Non-anxious presence [] Spiritual/emotional support [] Crisis/trauma care [] Spiritual counseling [] Bereavement support [] Provided bereavement packet [] Provided Bible/devotional materials [] Provided toy/stuffed animal, coloring book to patient or family member [] Provided Communion [] Anointing/[place] [] Salvation [x] Completed spiritual assessment [] Other: Impact on Illness or Injury [] Angry [] Fearful [] Anxious [] Often cries [] Exhaustion [] Unable to work [] Unable to attend adventism [] Unable to walk/stand [] Unable to read [] Unable to drive [] Unable to eat/drink [] Unable to sleep [] Unable to be with family [] Patient intubated [] Other: Summary Time spent with patient
--- NOTE | 2020-05-05 09:16 | P.PN_ITS ---
Subjective Subjective: Interval history: The patient denies any chest pain or shortness of breath. He is getting hemodialysis today. Still seems to be very agitated. Mostly complaining of generalized itching. No fever or chills. No cough. Telemetry shows normal sinus rhythm. Patient is still on IV amiodarone. Medications: Reviewed: Yes Medication Review Details: Current Medications Acetaminophen (Tylenol) 650 mg PO Q6H PRN PRN Reason: Mild/Mod Pain Or Temp >/= 101 Last Admin: 04/29/20 18:06 Dose: 650 mg Documented by: Albuterol/Ipratropium (Duoneb) 3 ml INHALATION Q4H.RESPIRATORY [facility] Last Admin: 05/05/20 08:07 Dose: 3 ml Documented by: Amiodarone HCl (Cordarone) 200 mg PO DAILY [facility] Last Admin: 04/28/20 08:58 Dose: Not Given Documented by: Amlodipine Besylate (Norvasc) 10 mg PO DAILY [facility] Last Admin: 04/23/20 09:39 Dose: 10 mg Documented by: Atorvastatin Calcium (Lipitor) 20 mg PO BEDTIME [facility] Last Admin: 05/04/20 21:22 Dose: 20 mg Documented by: Bisacodyl (Dulcolax) 10 mg PO DAILY PRN PRN Reason: CONSTIPATION Ciprofloxacin/Dexamethasone (Ciprodex) 4 drop EAR-LEFT BID [facility]; Protocol Last Admin: 05/04/20 18:04 Dose: 4 drop Documented by: Dextrose (D50w) 25 ml IVP ONCE PRN; Protocol PRN Reason: hypoglycemia protocol Dextrose (D50w) 50 ml IVP PRN PRN; Protocol PRN Reason: hypoglycemia protocol Ferrous Sulfate (Ferrous Sulfate) 325 mg PO BIDWM [facility] Last Admin: 05/04/20 18:03 Dose: Not Given Documented by: Furosemide (Lasix) 80 mg IVP Q12H [facility] Last Admin: 05/04/20 18:02 Dose: 80 mg Documented by: Gabapentin (Neurontin) 400 mg PO DAILY [facility] Last Admin: 05/04/20 08:31 Dose: Not Given Documented by: Glucagon (Glucagen) 1 mg IM ONCE PRN; Protocol PRN Reason: Adult Acute Hypoglycemia Prot. Hydralazine HCl (Apresoline) 25 mg PO TID [facility] Last Admin: 05/04/20 21:22 Dose: 25 mg Documented by: Hydroxyzine Pamoate (Vistaril) 25 mg PO QPM PRN PRN Reason: ITCHING Last Admin: 05/04/20 21:23 Dose: 25 mg Documented by: Dextrose (D5w) 500 mls @ 100 mls/hr IV ONCE PRN; Protocol PRN Reason: Adult Acute Hypoglycemia Prot Furosemide 100 mg/ Sodium (Chloride) 50 mls @ 0 mls/hr IV .Q0M [facility]; Protocol Last Titration: 05/04/20 06:18 Dose: Infused Documented by: Piperacillin Sod/Tazobactam (Sod 3.375 gm/ Sodium Chloride) 50 mls @ 12.5 mls/hr IV Q12H [facility]; Protocol Last Admin: 05/05/20 01:03 Dose: 12.5 mls/hr Documented by: Amiodarone HCl 900 mg/Dextrose/ IV Miscellaneous Supplies 518 mls @ 0 mls/hr IV .Q0M [facility]; Protocol Last Admin: 05/04/20 23:36 Dose: 0.5 mg/min, 17.3 mls/hr Documented by: Dexmedetomidine HCl 400 mcg/ (Sodium Chloride) 104 mls @ 0 mls/hr IV .Q0M [facility]; Protocol Last Admin: 05/05/20 08:13 Dose: 0.7 mcg/kg/hr, 14.9 mls/hr Documented by: Insulin Aspart (Novolog) 0 unit SUBCUT BEDTIME [facility]; Protocol Last Admin: 05/04/20 21:11 Dose: Not Given Documented by: Insulin Aspart (Novolog) 0 unit SUBCUT TIDWM [facility]; Protocol Last Admin: 05/05/20 08:13 Dose: Not Given Documented by: Isosorbide Mononitrate (Imdur) 60 mg PO QAM [facility] Last Admin: 05/05/20 06:07 Dose: Not Given Documented by: Lidocaine HCl (Lidocaine 2% Jelly) 1 applic TOPICAL DAILY PRN PRN Reason: ITCHING Last Admin: 05/04/20 21:28 Dose: 1 applic Documented by: Lorazepam (Ativan) 0.5 mg IVP Q4H PRN PRN Reason: ANXIETY Last Admin: 05/04/20 21:28 Dose: 0.5 mg Documented by: Metolazone (Zaroxolyn) 5 mg PO DAILY [facility] Last Admin: 05/04/20 08:31 Dose: Not Given Documented by: Metoprolol Tartrate (Lopressor) 25 mg PO BID [facility] Last Admin: 04/26/20 08:11 Dose: Not Given Documented by: Metoprolol Tartrate (Metoprolol Tartrate) 5 mg IV Q4H PRN PRN Reason: HR greater than 110 Last Admin: 04/30/20 23:58 Dose: 5 mg Documented by: Multi-Ingredient Ointment (Eucerin) 1 applic TOPICAL BID [facility] Last Admin: 05/04/20 18:03 Dose: 1 applic Documented by: Naloxone HCl (Narcan) 0.1 mg IVP Q2M PRN PRN Reason: OPIATERV Ondansetron HCl (Zofran) 4 mg IVP Q8H PRN PRN Reason: vomiting, or N/V if npo Pantoprazole Sodium (Protonix) 40 mg IVP Q12H [facility] Last Admin: 05/04/20 21:11 Dose: 40 mg Documented by: Potassium Chloride (Potassium Chloride Oral Liquid) 10 meq PO DAILY [facility] Last Admin: 05/04/20 08:31 Dose: Not Given Documented by: Trazodone HCl (Desyrel) 50 mg PO BEDTIME [facility] Last Admin: 05/04/20 21:22 Dose: 50 mg Documented by: Vitals/I&O/Wt Last Vital Signs Temp 98.2 F 05/05/20 04:00 Pulse 76 05/05/20 08:16 Resp 18 05/05/20 08:07 BP 136/68 05/05/20 06:00 Pulse Ox 100 05/05/20 08:07 05/04/20 05/05/20 05/05/20 22:59 06:59 14:59 Intake Total 392.245 / 526.245 165.835 / 692.080 Output Total 350 / 350 300 / 650 Balance 42.245 / 176.245 -134.165 / 42.080 Weight last 48 hrs Weight 167 lb 14.4 oz Weight 168 lb Physical Exam Narrative: EXAM NARRATIVE: GENERAL: Patient is agitated and somewhat cooperative and responds appropriately to verbal commands HEENT: Minimal pallor, icterus or lymphadenopathy.Oral cavity: There are no mucous membrane lesions. NECK: Trachea appears to be central. No masses noted. No JVD or thyromegaly appreciated. RESPIRATORY: Chest is symmetrical. No intercostals muscle retraction or any accessory muscle activation. There is no chest wall tenderness. Breath sounds are heard bilaterally. No rales or rhonchi heard. No evidence of any consolidation. Scattered crackles in the bases. Breath sounds are diminished in the bases BREASTS: Deferred. HEART: The heart sounds are normal. No S3 or S4. Ejection systolic murmur grade 3/6 at the base of the heart.. No pericardial rub ABDOMEN: No vessel pulsations or distention. No tenderness. No organomegaly appreciated. Bowel sounds are normally heard. : Deferred. RECTAL: Deferred. LYMPHATIC: No lymphadenopathy noted in the neck. EXTREMITIES: Trace edema with no cyanosis.. No clubbing. Peripheral pulses are palpated in fairly good volume and amplitude MUSCULOSKELETAL: No acute joint deformities or swelling SKIN: There are no significant rashes or ecchymosis NEUROPSYCHIATRIC: As mentioned above Urinary Catheter Management^: Whitley: Cath Placed During This Visit: yes Reason for Continuing Indwelling Catheter: Accurate Measurement of Urinary Output in Critically Ill Patients Urinary Catheter Date of Insertion: 04/22/20 Urinary Catheter Time of Insertion: 18:43 Data : 05/05/20 03:20 05/05/20 03:20 Other Labs: Laboratory Last Values WBC 7.5 10^3/uL (4.0-10.0) 05/05/20 03:20 RBC 3.82 10^6/uL (4.1-5.3) L 05/05/20 03:20 Hgb 9.8 g/dL (11.7-16.6) L 05/05/20 03:20 Hct 33.7 % (42.0-52.0) L 05/05/20 03:20 MCV 88.2 fL (80-94) 05/05/20 03:20 MCH 25.7 pg (28.0-34.0) L 05/05/20 03:20 MCHC 29.1 g/dL (30.0-36.0) L 05/05/20 03:20 RDW 16.6 % (12.1-15.1) H 05/05/20 03:20 Plt Count 237 10^3/cmm (130-400) 05/05/20 03:20 MPV 10.2 fL (7.4-10.4) 05/05/20 03:20 Neut % (Auto) 70.6 % 05/05/20 03:20 Lymph % (Auto) 12.4 % 05/05/20 03:20 Armstrong % (Auto) 10.8 % 05/05/20 03:20 Eos % (Auto) 4.4 % 05/05/20 03:20 Baso % (Auto) 1.1 % 05/05/20 03:20 Neut # (Auto) 5.32 10^3/uL (1.8-7.7) 05/05/20 03:20 Lymph # (Auto) 0.9 10^3/uL (0.8-4.8) 05/05/20 03:20 Armstrong # (Auto) 0.8 10^3/uL (0.2-0.9) 05/05/20 03:20 Eos # (Auto) 0.3 10^3/uL (0.0-0.8) 05/05/20 03:20 Baso # (Auto) 0.1 10^3/uL (0.0-0.1) 05/05/20 03:20 Nucleated RBC % (auto) 0 % 05/05/20 03:20 Nucleated RBCs # 0.0 /100WBC 05/05/20 03:20 PT 15.50 SECONDS (12.1-14.9) H 04/27/20 03:40 INR 1.19 (0.8-1.2) 04/27/20 03:40 Specimen Type Arterial 05/02/20 04:50 Sample Site Brachial, right 05/02/20 04:50 ABG pH 7.34 (7.35-7.45) L 05/02/20 04:50 ABG pCO2 43.5 mmHg (35-45) 05/02/20 04:50 ABG pO2 58.9 mmHg (80.0-100.0) L 05/02/20 04:50 ABG HCO3 23.6 mmol/L (22-26) 05/02/20 04:50 ABG O2 Saturation 93.3 04/21/20 09:39 ABG Base Excess -2.1 mmol/L (-2.0-2.0) L 05/02/20 04:50 Lion Test Pos 05/02/20 04:50 A-a O2 Gradient 17.0 mmHg (5-10) H 04/22/20 23:20 Hematocrit 30.8 % (42-52) L 05/02/20 04:50 Hgb O2 Saturation 94.2 % (95-100) L 04/22/20 23:20 Carboxyhemoglobin 1.8 %THgb (0.4-20.1) 04/22/20 23:20 Methemoglobin 0.7 % (0.4-1.5) 04/22/20 23:20 Total Hemoglobin 8.9 g/dL (14-18) L 04/22/20 23:20 Sodium 143.0 mmol/L (131-143) 04/21/20 09:39 Potassium 4.6 mmol/L (3.5-5.0) 04/21/20 09:39 Glucose 149.0 mg/dL (70-115) H 04/21/20 09:39 Ionized Calcium 1.3 mmol/L (1.1-1.4) 04/21/20 09:39 O2 Delivery Device Nc 05/02/20 04:50 O2 Liters/Min 10.0 % 05/02/20 04:50 FiO2 35.0 % 04/25/20 14:45 Tidal Volume 0.40 04/25/20 14:45 PEEP 5.0 cmH20 04/25/20 14:45 Machinist Supervisor ID Guido 05/02/20 04:50 Sodium 139 mmol/L (136-145) 05/05/20 03:20 Potassium 3.1 mmol/L (3.5-5.1) L 05/05/20 03:20 Chloride 97 mmol/L (98-107) L 05/05/20 03:20 Carbon Dioxide 19 mmol/L (22-29) L 05/05/20 03:20 Anion Gap 26.1 (5-19) H 05/05/20 03:20 BUN 28 mg/dL (8-23) H 05/05/20 03:20 Creatinine 3.2 mg/dL (0.7-1.2) H 05/05/20 03:20 GFR Calculation Not Reportable 05/05/20 03:20 Glucose 186 mg/dL (65-115) H 05/05/20 03:20 POC Glucose 169 mg/dL (70-110) 05/05/20 07:10 Estimat Average Glucose 192 04/21/20 09:46 Hemoglobin A1c 8.3 % (4.0-6.0) H 04/21/20 09:46 Calculated Osmolality 298 mOsm/kg (285-295) H 05/05/20 03:20 Lactic Acid 0.8 mmol/L (0.5-2.2) 04/25/20 03:15 Calcium 9.3 mg/dL (8.5-10.5) 05/05/20 03:20 Phosphorus 5.0 mg/dL (2.5-4.5) H 04/29/20 05:48 Magnesium 2.6 mg/dL (1.7-2.3) H 04/26/20 03:16 Iron 27 ug/dL (59-158) L 04/24/20 04:34 TIBC 237 mcg/dl 04/24/20 04:34 % Saturation 11.3 % (20-50) L 04/24/20 04:34 Unsat Iron Binding 210 ug/dL (112-347) 04/24/20 04:34 Total Bilirubin 0.3 mg/dL (0.15-1.2) 05/05/20 03:20 AST 15 U/L (0-40) 05/05/20 03:20 ALT 15 U/L (0-41) 05/05/20 03:20 Alkaline Phosphatase 114 IU/L (40-130) 05/05/20 03:20 Creatine Kinase 344 U/L (39-308) H* 04/25/20 03:15 Troponin T Gen 5 ng/L Cancelled 04/23/20 00:08 Troponin T Baseline 45 ng/L (0-15) H 04/23/20 00:08 Troponin T 120 Minute 47.99 ng/L (0-15) H 04/23/20 02:01 Delta Troponin T 2.99 ABS# (0-10) 04/23/20 02:01 Troponin T Hi Sens 6Hr 49.57 ng/L (0-15) H 04/23/20 06:44 Troponin T Hi Sens 6Hr Delta 4.57 ng/L (0-12) 04/23/20 06:44 C-Reactive Protein 34.8 mg/L (0.0-4.9) H 04/24/20 04:34 NT-Pro-B Natriuret Pep 3607 pg/mL (0-450) H 04/22/20 23:25 Total Protein 6.9 g/dL (6.6-8.7) 05/05/20 03:20 Albumin 3.4 g/dL (3.5-5.2) L 05/05/20 03:20 Globulin 3.5 g/dL (1.3-4.6) 05/05/20 03:20 Lipase 26 U/L (13-60) 04/21/20 09:46 Procalcitonin 0.35 ng/mL (0-0.5) 04/27/20 03:40 TSH 15.67 uIU/mL (0.27-4.20) H 04/21/20 09:46 Free T4 0.93 ng/dL (0.82-1.77) 04/22/20 05:37 Free T3 2.0 PG/ML (2.0-4.4) 04/22/20 05:37 Urine Color Yellow (Yellow) 05/01/20 18:05 Urine Appearance Hazy (CLEAR) A 05/01/20 18:05 Urine pH 5 (5-7) 05/01/20 18:05 Ur Specific [place] 1.015 (1.005-1.030) 05/01/20 18:05 Urine Protein 2+ (Negative) H 05/01/20 18:05 Urine Glucose (UA) Norm (Normal) 05/01/20 18:05 Urine Ketones 1+ (Negative) H 05/01/20 18:05 Urine Blood 3+ (Negative) H 05/01/20 18:05 Urine Nitrate Negative (Negative) 05/01/20 18:05 Urine Bilirubin Neg (Negative) 05/01/20 18:05 Urine Urobilinogen Neg mg/dL (Negative) 05/01/20 18:05 Ur Leukocyte Esterase Negative (Negative) 05/01/20 18:05 Urine RBC 25-40 /hpf (0-2) H 05/01/20 18:05 Urine WBC 0-4 /hpf (0-5) H 05/01/20 18:05 Ur Squamous Epith Cells 10-15 /hpf (0-5) H 05/01/20 18:05 Amorphous Sediment 3+ /hpf 05/01/20 18:05 Urine Bacteria 2+ /hpf (NONE) H 05/01/20 18:05 Hyaline Casts 0-4 /lpf H 04/21/20 11:24 Urine Mucus Trace /hpf 04/21/20 11:24 U Random Total Protein 274 mg/dL 04/22/20 20:05 Urine Creatinine 98 mg/dL (39-259) 04/22/20 20:05 Protein/Creatinin Ratio 2.80 mg/mg CR 04/22/20 20:05 Vancomycin Trough 13.0 ug/mL (10-15) 04/28/20 13:30 Hep Bs Antigen Non-reactive (Nonreactive) 04/27/20 03:40 Blood Type A Positive 04/21/20 14:47 Rho(D) Type Positive 04/21/20 14:47 Antibody Screen Negative 04/21/20 14:47 Crossmatch See Detail 04/21/20 14:47 A&P Assessment and plan (1) Acute on chronic diastolic (congestive) heart failure: Patient seems to have intermittent diastolic heart failure. Most likely this is related to left-ventricular diastolic dysfunction and arrhythmia. He may continue on the current medications. He is getting the hemodialysis today. Status: Acute (2) Atrial fibrillation with rapid ventricular response: Currently on IV amiodarone. May continue on the same. May switch to p.o. amiodarone, once he can tolerate oral medications. I may start him with a DuoNeb milligrams p.o. daily. Status: Resolved (3) Acute kidney injury superimposed on chronic kidney disease: The BUN and the creatinine coming down significantly. Dialysis as per the nephrology. 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 May continue on the current measures. Status: Acute Qualifiers: Anemia type: iron deficiency Iron deficiency anemia type: chronic blood loss Qualified Code(s): D50.0 - Iron deficiency anemia secondary to blood loss (chronic) Additional A&P Information Other problems are Hypokalemia, is being corrected Altered mental status/agitated dementia Attestations Medical Necessity Statement*: Disposition as per the primary Coding Level of Care Code Acute Life Skills Educator for Chg Fwd Diagnoses Acute on chronic diastolic (congestive) heart failure I50.33 Atrial fibrillation with rapid ventricular response I48.91 Acute kidney injury superimposed on chronic kidney disease N17.9; N18.9 Diabetes mellitus E11.65 Diabetes mellitus type: type 2 Diabetes mellitus christmas tree farmer insulin use: without mcfp use Diabetes mellitus complication status: with hyperglycemia Anemia D50.0 Anemia type: iron deficiency Iron deficiency anemia type: chronic blood loss
[2020-05-05] MEDS: ferrous sulfate EC 325 mg Tablet PO ×2 (10:23→17:14)
[2020-05-05] MEDS: gabapentin 400 mg Capsule PO (10:23)
[2020-05-05] MEDS: potassium chloride oral liq 20 mEq/15 mL UDC 10 MEQ PO (10:23)
[2020-05-05] MEDS: pantoprazole 40 mg SDV IVP ×2 (10:23→21:03)
[2020-05-05] MEDS: hyDRALAzine 25 mg Tablet PO ×2 (10:24→21:04)
[2020-05-05] MEDS: FUROsemide 10 mg/mL SDV 10mL 80 MG IVP (10:25)
[2020-05-05] MEDS: ciprofloxacin-dexameth Otic Susp 7.5 mL Btl 4 DROP EAR-LEFT ×2 (10:25→17:23)
[2020-05-05] MEDS: metOLazone 5 MG Tablet PO (10:25)
[2020-05-05] MEDS: eucerin cream 113 gm Jar 1 APPLIC TOPICAL ×2 (10:26→17:24)
--- NOTE | 2020-05-05 11:17 | PC.SOCIAL ---
IMM Update Pg. 2 of IMM updated and reviewed with patient's son over the phone, who verbalized understanding.
--- NOTE | 2020-05-05 11:29 | P.PN_ITS ---
Subjective Subjective: Interval history: Some agitation, although he is vastly improved neurologically Tolerating dialysis today No edema and no other volume related Sx. Breathing comfortably Itching is his main complaint Medications: Reviewed: Yes Medication Review Details: Current Medications Acetaminophen (Tylenol) 650 mg PO Q6H PRN PRN Reason: Mild/Mod Pain Or Temp >/= 101 Last Admin: 04/29/20 18:06 Dose: 650 mg Documented by: Albuterol/Ipratropium (Duoneb) 3 ml INHALATION Q4H.RESPIRATORY [facility] Last Admin: 05/05/20 08:07 Dose: 3 ml Documented by: Amiodarone HCl (Cordarone) 200 mg PO DAILY [facility] Last Admin: 04/28/20 08:58 Dose: Not Given Documented by: Amlodipine Besylate (Norvasc) 10 mg PO DAILY [facility] Last Admin: 04/23/20 09:39 Dose: 10 mg Documented by: Atorvastatin Calcium (Lipitor) 20 mg PO BEDTIME [facility] Last Admin: 05/04/20 21:22 Dose: 20 mg Documented by: Bisacodyl (Dulcolax) 10 mg PO DAILY PRN PRN Reason: CONSTIPATION Ciprofloxacin/Dexamethasone (Ciprodex) 4 drop EAR-LEFT BID [facility]; Protocol Last Admin: 05/04/20 18:04 Dose: 4 drop Documented by: Dextrose (D50w) 25 ml IVP ONCE PRN; Protocol PRN Reason: hypoglycemia protocol Dextrose (D50w) 50 ml IVP PRN PRN; Protocol PRN Reason: hypoglycemia protocol Ferrous Sulfate (Ferrous Sulfate) 325 mg PO BIDWM [facility] Last Admin: 05/04/20 18:03 Dose: Not Given Documented by: Furosemide (Lasix) 80 mg IVP Q12H [facility] Last Admin: 05/04/20 18:02 Dose: 80 mg Documented by: Gabapentin (Neurontin) 400 mg PO DAILY [facility] Last Admin: 05/04/20 08:31 Dose: Not Given Documented by: Glucagon (Glucagen) 1 mg IM ONCE PRN; Protocol PRN Reason: Adult Acute Hypoglycemia Prot. Hydralazine HCl (Apresoline) 25 mg PO TID [facility] Last Admin: 05/04/20 21:22 Dose: 25 mg Documented by: Hydroxyzine Pamoate (Vistaril) 25 mg PO QPM PRN PRN Reason: ITCHING Last Admin: 05/04/20 21:23 Dose: 25 mg Documented by: Dextrose (D5w) 500 mls @ 100 mls/hr IV ONCE PRN; Protocol PRN Reason: Adult Acute Hypoglycemia Prot Furosemide 100 mg/ Sodium (Chloride) 50 mls @ 0 mls/hr IV .Q0M [facility]; Protocol Last Titration: 05/04/20 06:18 Dose: Infused Documented by: Piperacillin Sod/Tazobactam (Sod 3.375 gm/ Sodium Chloride) 50 mls @ 12.5 mls/hr IV Q12H [facility]; Protocol Last Admin: 05/05/20 01:03 Dose: 12.5 mls/hr Documented by: Amiodarone HCl 900 mg/Dextrose/ IV Miscellaneous Supplies 518 mls @ 0 mls/hr IV .Q0M [facility]; Protocol Last Admin: 05/04/20 23:36 Dose: 0.5 mg/min, 17.3 mls/hr Documented by: Dexmedetomidine HCl 400 mcg/ (Sodium Chloride) 104 mls @ 0 mls/hr IV .Q0M [facility]; Protocol Last Admin: 05/05/20 08:13 Dose: 0.7 mcg/kg/hr, 14.9 mls/hr Documented by: Insulin Aspart (Novolog) 0 unit SUBCUT BEDTIME [facility]; Protocol Last Admin: 05/04/20 21:11 Dose: Not Given Documented by: Insulin Aspart (Novolog) 0 unit SUBCUT TIDWM [facility]; Protocol Last Admin: 05/05/20 08:13 Dose: Not Given Documented by: Isosorbide Mononitrate (Imdur) 60 mg PO QAM [facility] Last Admin: 05/05/20 06:07 Dose: Not Given Documented by: Lidocaine HCl (Lidocaine 2% Jelly) 1 applic TOPICAL DAILY PRN PRN Reason: ITCHING Last Admin: 05/04/20 21:28 Dose: 1 applic Documented by: Lorazepam (Ativan) 0.5 mg IVP Q4H PRN PRN Reason: ANXIETY Last Admin: 05/04/20 21:28 Dose: 0.5 mg Documented by: Metolazone (Zaroxolyn) 5 mg PO DAILY [facility] Last Admin: 05/04/20 08:31 Dose: Not Given Documented by: Metoprolol Tartrate (Lopressor) 25 mg PO BID [facility] Last Admin: 04/26/20 08:11 Dose: Not Given Documented by: Metoprolol Tartrate (Metoprolol Tartrate) 5 mg IV Q4H PRN PRN Reason: HR greater than 110 Last Admin: 04/30/20 23:58 Dose: 5 mg Documented by: Multi-Ingredient Ointment (Eucerin) 1 applic TOPICAL BID [facility] Last Admin: 05/04/20 18:03 Dose: 1 applic Documented by: Naloxone HCl (Narcan) 0.1 mg IVP Q2M PRN PRN Reason: OPIATERV Ondansetron HCl (Zofran) 4 mg IVP Q8H PRN PRN Reason: vomiting, or N/V if npo Pantoprazole Sodium (Protonix) 40 mg IVP Q12H [facility] Last Admin: 05/04/20 21:11 Dose: 40 mg Documented by: Potassium Chloride (Potassium Chloride Oral Liquid) 10 meq PO DAILY [facility] Last Admin: 05/04/20 08:31 Dose: Not Given Documented by: Trazodone HCl (Desyrel) 50 mg PO BEDTIME [facility] Last Admin: 05/04/20 21:22 Dose: 50 mg Documented by: Vitals/I&O/Wt Last Vital Signs Temp 98.7 F 05/05/20 10:00 Pulse 79 05/05/20 10:00 Resp 20 H 05/05/20 10:00 BP 104/79 05/05/20 10:00 Pulse Ox 96 05/05/20 10:00 05/04/20 05/05/20 05/05/20 22:59 06:59 14:59 Intake Total 392.245 / 526.245 165.835 / 692.080 Output Total 350 / 350 300 / 650 Balance 42.245 / 176.245 -134.165 / 42.080 Weight last 48 hrs Weight 76.158 kg Weight 76.204 kg Physical Exam Narrative: EXAM NARRATIVE: Constitutional: Awake and chatting HEENT: Wet mucosa, no jvp, non icteric Lungs: Bilaterally clear coarse, diminished all lung zones CVS: S1 S2, no murmurs Abdo: Soft, BS ok Ext 4: global edema, peripheral perfusion with no cyanosis Neurological: Grossly non-focal Urinary Catheter Management^: Whitley: Cath Placed During This Visit: yes Reason for Continuing Indwelling Catheter: Accurate Measurement of Urinary Output in Critically Ill Patients Urinary Catheter Date of Insertion: 04/22/20 Urinary Catheter Time of Insertion: 18:43 Data : 05/05/20 03:20 05/05/20 03:20 A&P Additional A&P Information 1. JED on CKD Consistent with CRS although cause is not entirely clear Dialyzed this morning, tolerating therapy well Tunnelled in the right chest Will DC metolazone and change lasix to single daily dosing Close monitoring for renal recovery Strict ins and outs, avoid usual nephrotoxic medication. 2. Lytes - K rider again today - highest conc bath is 3K 3. Hypertension, Afib Hemodynamics remain stable 4. Anemia - serial H/H, low iron sat, s/p venofer 5. AMS - likely toxic encephalopathy - slight improvement - DC planning Antonino Harden MD Nephrology [phone] Patient seen and examined via telemedicine, with the assistance of the bedside RN Attestations Medical Necessity Statement*: Eval for JED Coding Level of Care Code Acute Gang Plank Workman for Chg Andrew
[2020-05-05 11:55] LABS: Glucose Point of Care 138 mg/dL (70-110)
[2020-05-05] MEDS: potassium chloride premix 100 ML 50 MEQ IV (12:09)
--- NOTE | 2020-05-05 13:27 | PM.PN ---
Subjective Subjective: Interval history: Continues repeating please let me itch . Does appear to be more easily redirectable today. Knows he is at [facility]. Denies pain. Denies shortness of breath. Vitals/I&O/Wt Last Vital Signs Temp 98.7 F 05/05/20 10:00 Pulse 77 05/05/20 12:54 Resp 21 H 05/05/20 12:47 BP 139/78 05/05/20 12:00 Pulse Ox 89 L 05/05/20 12:47 05/04/20 05/05/20 05/05/20 22:59 06:59 14:59 Intake Total 392.245 / 526.245 215.835 / 742.080 Output Total 350 / 350 300 / 650 Balance 42.245 / 176.245 -84.165 / 92.080 Weight last 48 hrs Weight 76.158 kg Weight 76.204 kg Physical Exam Const: COMMON NORMALS: no acute distress ORIENTATION/CONSCIOUSNESS: Yes confused OTHER: More alert and interactive. Today he knows he is in [facility]. Tells me his name. Follows some commands. But one conversation ends, or completes this task continues again repeating with eyes closed please let me itch , trying to reach his buttocks or back to scratch them. HENMT: COMMON NORMALS: oropharynx normal NOSE: Other nasal findings present (Wound on bridge of the nose covered by dressing. ) Neck/C-Spine: COMMON NORMALS: no JVD Chest: OTHER: Temp HD catheter Resp: COMMON NORMALS: normal respiratory effort and clear to auscultation bilaterally AUSCULTATION: clear to auscultation bilaterally Cardio: COMMON NORMALS: no JVD, S1 normal heart sound present, S2 normal heart sound present and No murmurs present (Cardio) RATE: tachycardic HEART SOUNDS: S1 normal heart sound present and S2 normal heart sound present GI: COMMON NORMALS: Normal to inspection, nondistended, normoactive bowel sounds present, Soft to palpation and non-tender PALPATION: Yes Soft to palpation Extremity: COMMON NORMALS: no joint enlargement and no pedal edema Neuro: COMMON NORMALS: moves all extremities Skin: COMMON NORMALS: no rashes or lesions noted GENERAL SKIN EXAM: no rashes or lesions noted OTHER: No urticaria or other rash noted. Continued chronic pressure ulcer both sides of sacrum. Small raw area in the center. Urinary Catheter Management^: Jaquez: Cath Placed During This Visit: yes Reason for Continuing Indwelling Catheter: Accurate Measurement of Urinary Output in Critically Ill Patients Urinary Catheter Date of Insertion: 04/22/20 Urinary Catheter Time of Insertion: 18:43 Data : 05/05/20 03:20 05/05/20 03:20 A&P Assessment and plan (1) Acute on chronic diastolic (congestive) heart failure: Slowly weaning off oxygen. Weight is decreasing. Gradually improving. Continue HD. Has tunneled catheter. CXR 05/01 with improved pulmonary consolidation and effusion (small). Improving heart failure. Some persistent encephalopathy with very slow improvement. For now continues n.p.o. as has not been reliably awake enough to safely tolerate oral intake or allow speech therapy reassessment. As he moves about the bed and pulls on different things, would not be a good candidate for NG currently. Acute diastolic CHF. Underwent hemodialysis. Blood pressure improved. Extubated on 04/25/20 Cardiology consult appreciated Appreciate nephrology and surgical consultation. Continue PT and OT. Status: Acute (2) Acute encephalopathy: Appears to have gradual but very slow improvement. Very slowly titrating off Precedex. Becomes restless, try to pull on lines, tubes. Perseverates on pruritus. As below. Continue attempts to wean off sedation. Soft restraints if almost impossible to stop from reaching for dialysis catheter or other lines. Continue hemodialysis. Also possible delirium superimposed on chronic dementia, possibly minimally conscious state which is improving. He is usually more responsive from what I am told, able to answer questions follow commands. Dyspnea multifactorial secondary to underlying infection with pneumonia UA is not impressive for UTI, but does have some microscopic hematuria. Back in July CT scan with findings that could have suggested pyelonephritis. CT of the head with noted increasing fluid in multiple left mastoid air cells consistent with left-sided otomastoiditis. Otherwise mild generalized cerebral atrophy, mild senescent white matter disease. Continue speech reevaluation. Status: Acute (3) Chronic kidney disease: Chronic kidney disease increasing BUN and creatinine Appreciate nephrology consultation Dialysis catheter placed on 04/27/2020, Tolerating HD so far. BP is better. Status: Chronic (4) Lesion of cecum: Incidentally noted on CT. Discussed with his son. Concern is for malignancy. Would benefit from additional evaluation by colonoscopy, but not sure how aggressive patient and family would want to be. He states that his father had previously told him that he thought something has been wrong with him for some time, and it appears that he potentially may not have wanted to seek additional aggressive treatments for an illness like this. He notes that his father previously agreed to hemodialysis, but he is not sure about condition like potential malignancy. He will discuss further with his brother, as well as if his father's mental status continues to improve, would like to try to discuss further with him as well before proceeding with any aggressive diagnostic or interventional procedures. Status: Acute (5) Otitis media: Otomastoiditis noted on CT temporal bone. He has no local inflammation, there is no tenderness, erythema, warmth or other changes over the mastoid on either side. This is noted on the left side on CT. Ear examination without noted purulence or drainage. ENT currently not available until Friday, however, suspect that this is a more chronic process. There is no invasion noted locally and no osteomyelitis. Continue Ciprodex. Completed course of Zosyn. Follow-up with ENT. Status: Acute (6) Chronic anemia: Newly found cecal lesion, concerning for possible malignancy. Acute on chronic anemia also with iron deficiency Fecal occult blood positive this admission, no evidence of any active bleeding at this time, continue on PPI twice daily Consider further outpatient work-up once cardiopulmonary status improved Status: Acute (7) Ventricular tachycardia: Prior history of ventricular tachycardia, on amiodarone 200 mg daily, metoprolol 25mg, however unable to take due to inability to swallow medications. Continue amiodarone drip. Continue IV metoprolol PRN. Status: Resolved (8) High risk medication use: Status: Acute (9) Edema, peripheral: improved Status: Acute (10) Dyslipidemia: Continue home statin Status: Acute (11) Hypertension: Status: Acute Qualifiers: Hypertension type: essential hypertension Qualified Code(s): I10 - Essential (primary) hypertension (12) Dementia: With some sundowning at night Status: Chronic Qualifiers: Dementia behavioral disturbance: without behavioral disturbance Dementia type: Lewy body dementia Qualified Code(s): G31.83 - Dementia with Lewy bodies; F02.80 - Dementia in other diseases classified elsewhere without behavioral disturbance (13) Diabetes mellitus: Lantus held Sliding scale as needed Glipizide on hold Status: Chronic Qualifiers: Diabetes mellitus complication status: with hyperglycemia Diabetes mellitus terminal make up operator insulin use: without terminal make up operator use Diabetes mellitus type: type 2 Qualified Code(s): E11.65 - Type 2 diabetes mellitus with hyperglycemia (14) Atrial fibrillation: Improved. Paroxysmal atrial fibrillation with RVR. Continue amiodarone infusion. IV metoprolol scheduled due to inability to take p.o. Cardiology consultation appreciated Off of anticoagulation due to anemia Status: Acute (15) Pneumonia: He remains afebrile, no leukocytosis. No complaints about his breathing. We will go ahead and try to stop Zosyn. Monitor condition. Maintain aspiration precautions. However sputum culture showing mixed ray of the upper respiratory tract. Vancomycin was stopped. Status: Acute (16) Pruritus: Benadryl, cetirizine with little effect. Attempting to restart his gabapentin. Discussed with nephrology, uremic pruritus should be improving with dialysis. Sounds like in some cases dialysis itself may also contribute, and adjustment to usual therapy will be attempted next session. There is no leukocytosis or eosinophilia. Has cecum lesion, possibly tomorrow, but would expect neuroendocrine tumors in the colon are not common. Discussed with his son, discussed also difficult to say if in fact pruritus is present. There is no rash, or other lesions. Skin has been moisturized. Consideration may also be given to psychosomatic causes with his underlying dementia, delirium as he appears to perseverate and repeat the same thing with regards to pruritus. Discussed if you are not seeing improvement and no other objective signs, son is in agreement with perhaps cautiously trying antipsychotic medication for his encephalopathy at low-dose. Status: Acute Additional A&P Information Chronic sacral pressure ulcers. Reposition frequently. Keep dry. Mental status appears to be improving, perhaps may be able to resume oral nutrition soon. Difficult jaquez placement: Jaquez placed by Dr. Del Real, appreciate consultation. Follow in office. Positive blood culture: Showing coag negative staph, likely contaminant as only in 1 bottle, repeat blood cultures show no growth to date. Lewy body dementia DVT prophylaxis: SCDs, no pharmacologic prophylaxis due to anemia Diet: NPO, ST eval GI ppx: PPI CODE STATUS: Full code Dispo: trasition to LTAC Attestations Medical Necessity Statement*: Continue admission for assessment of management of CHF, renal failure, encephalopathy, attempts to liberate of sedation, disposition planning. Coding Level of Care Code Acute Bottle Line Worker for Chg Fwd Exam Comprehensive Diagnoses Acute on chronic diastolic (congestive) heart failure I50.33 Acute encephalopathy G93.40 Chronic kidney disease N18.9 Lesion of cecum K63.9 Otitis media H66.90 Chronic anemia D64.9 Ventricular tachycardia I47.2 High risk medication use Z79.899 Edema, peripheral R60.9 Dyslipidemia E78.5 Hypertension I10 Hypertension type: essential hypertension Dementia G31.83; F02.80 Dementia behavioral disturbance: without behavioral disturbance Dementia type: Lewy body dementia Diabetes mellitus E11.65 Diabetes mellitus complication status: with hyperglycemia Diabetes mellitus terminal make up operator insulin use: without halfway use Diabetes mellitus type: type 2 Atrial fibrillation I48.91 Pneumonia J18.9 Pruritus L29.9
[2020-05-05 17:14] LABS: Glucose Point of Care 181 mg/dL (70-110)
--- NOTE | 2020-05-05 18:59 | PC.NURSE ---
Shift summary: Pt alert to place and self. He started the day off with echolalia and repetitive requests to scratch. Hemodialysis done this morning, 1500ml out. Pt able to take morning PO meds. Refed all meals today but would drink the apple juice. He remained in sinus rhythm. Amiodarone gtt at 0.5 and Precedex at 0.5. Urine output very minimal at 175ml.Pt continued his repetitive requests and echolalia until after 1600. His son came to visit. Pt started to settle down after 1700, then stating All I ask is just to relax . Report given to Renaldo RN and Marielle RN.
--- NOTE | 2020-05-05 20:13 | PC.NURSE ---
supine 45 degrees, eyes closed, regular unlabored RR 2L NC, call light within reach, lungs clear but diminished
[2020-05-05] MEDS: atorvastatin 40 mg Tablet 20 MG PO (21:04)
[2020-05-05] MEDS: hyDROXYzine 25 mg Capsule PO (21:05)
[2020-05-05] MEDS: trazodone 50 mg Tablet PO (21:05)
[2020-05-06] VITALS (24 sets, daily range): BP systolic 90–143; BP diastolic 53–72; PULSE 60–167; RESP 14–35; TEMP 36–37.6; O2SAT 84–98
[2020-05-06] MEDS: ipratropium-albuterol 3 mL Neb INHALATION ×3 (00:30→20:49)
[2020-05-06 03:05] LABS: Glucose Point of Care 119 mg/dL (70-110)
[2020-05-06] MEDS: dexmedetomidine 400 MCG in sodium chloride 0.9% (100 ml) 100 ML 10.7 MCG IV (04:07)
[2020-05-06 04:47] LABS: Basophils # 0.1 10^3/uL (0.0-0.1); Basophils % 1.4 %; Eosinophils # 0.4 10^3/uL (0.0-0.8); Hematocrit 33.8 % (42.0-52.0); Hemoglobin 9.8 g/dL (11.7-16.6); Lymphocytes % 14.8 %; Mean Corpuscular Hemoglobin 25.6 pg (28.0-34.0); Mean Corpuscular Volume 88.3 fL (80-94); Mean Platelet Volume 10.1 fL (7.4-10.4); Neutrophils # 4.01 10^3/uL (1.8-7.7); Neutrophils % 61.9 %; Nucleated Red Blood Cells % 0 %; Platelet Count 215 10^3/cmm (130-400); Red Blood Count 3.83 10^6/uL (4.1-5.3); Red Cell Distribution Width 16.8 % (12.1-15.1); White Blood Count 6.5 10^3/uL (4.0-10.0)
[2020-05-06 05:11] LABS: Alanine Aminotransferase 16 U/L (0-41); Albumin Level 3.3 g/dL (3.5-5.2); Alkaline Phosphatase 113 IU/L (40-130); Anion Gap 20.5 (5-19); Aspartate Amino Transferase 20 U/L (0-40); Blood Urea Nitrogen 17 mg/dL (8-23); Calcium 8.9 mg/dL (8.5-10.5); Carbon Dioxide 22 mmol/L (22-29); Chloride 98 mmol/L (98-107); Globulin 3.5 g/dL (1.3-4.6); Glucose 177 mg/dL (65-115); Osmolality Calculated 290 mOsm/kg (285-295); Potassium 3.5 mmol/L (3.5-5.1); Sodium 137 mmol/L (136-145); Total Bilirubin 0.3 mg/dL (0.15-1.2); Total Protein 6.8 g/dL (6.6-8.7)
[2020-05-06] MEDS: isosorbide mononitrate ER 60 mg Tablet PO (05:17)
--- NOTE | 2020-05-06 05:58 | PC.NURSE ---
this nurse noticed pt legs off the bed and noted portion of R great toenail was off of toe, site clean dry and intact
[2020-05-06] MEDS: ferrous sulfate EC 325 mg Tablet PO ×2 (07:57→18:44)
[2020-05-06] MEDS: FUROsemide 40 mg Tablet PO (07:57)
--- NOTE | 2020-05-06 08:30 | PC.NURSE ---
Pt finger nails trimmed and unrestrained arms so pt is able to scratch himself at will. Assisted pt up to chair with 2 assist. fed breakfast.
[2020-05-06 08:37] LABS: Glucose Point of Care 199 mg/dL (70-110)
[2020-05-06] MEDS: pantoprazole 40 mg SDV IVP ×2 (09:52→20:06)
[2020-05-06] MEDS: hyDRALAzine 25 mg Tablet PO ×3 (09:53→20:06)
[2020-05-06] MEDS: eucerin cream 113 gm Jar 1 APPLIC TOPICAL (09:53)
[2020-05-06] MEDS: gabapentin 400 mg Capsule PO (09:53)
[2020-05-06] MEDS: potassium chloride oral liq 20 mEq/15 mL UDC 10 MEQ PO (09:54)
[2020-05-06] MEDS: ciprofloxacin-dexameth Otic Susp 7.5 mL Btl 4 DROP EAR-LEFT (09:56)
--- NOTE | 2020-05-06 10:04 | PM.PN ---
Subjective Subjective: Interval history: Perseverating about how itchy he feels. No acute issues since yesterday. Did receive dialysis yesterday. 625mL urine output yesterday. Medications: Reviewed: Yes Medication Review Details: Current Medications Acetaminophen (Tylenol) 650 mg PO Q6H PRN PRN Reason: Mild/Mod Pain Or Temp >/= 101 Last Admin: 04/29/20 18:06 Dose: 650 mg Documented by: Albuterol/Ipratropium (Duoneb) 3 ml INHALATION Q4H.RESPIRATORY DEBBIE Last Admin: 05/05/20 08:07 Dose: 3 ml Documented by: Amiodarone HCl (Cordarone) 200 mg PO DAILY DEBBIE Last Admin: 04/28/20 08:58 Dose: Not Given Documented by: Amlodipine Besylate (Norvasc) 10 mg PO DAILY [facility] Last Admin: 04/23/20 09:39 Dose: 10 mg Documented by: Atorvastatin Calcium (Lipitor) 20 mg PO BEDTIME DEBBIE Last Admin: 05/04/20 21:22 Dose: 20 mg Documented by: Bisacodyl (Dulcolax) 10 mg PO DAILY PRN PRN Reason: CONSTIPATION Ciprofloxacin/Dexamethasone (Ciprodex) 4 drop EAR-LEFT BID DEBBIE; Protocol Last Admin: 05/04/20 18:04 Dose: 4 drop Documented by: Dextrose (D50w) 25 ml IVP ONCE PRN; Protocol PRN Reason: hypoglycemia protocol Dextrose (D50w) 50 ml IVP PRN PRN; Protocol PRN Reason: hypoglycemia protocol Ferrous Sulfate (Ferrous Sulfate) 325 mg PO BIDWM [facility] Last Admin: 05/04/20 18:03 Dose: Not Given Documented by: Furosemide (Lasix) 80 mg IVP Q12H DEBBIE Last Admin: 05/04/20 18:02 Dose: 80 mg Documented by: Gabapentin (Neurontin) 400 mg PO DAILY DEBBIE Last Admin: 05/04/20 08:31 Dose: Not Given Documented by: Glucagon (Glucagen) 1 mg IM ONCE PRN; Protocol PRN Reason: Adult Acute Hypoglycemia Prot. Hydralazine HCl (Apresoline) 25 mg PO TID [facility] Last Admin: 05/04/20 21:22 Dose: 25 mg Documented by: Hydroxyzine Pamoate (Vistaril) 25 mg PO QPM PRN PRN Reason: ITCHING Last Admin: 05/04/20 21:23 Dose: 25 mg Documented by: Dextrose (D5w) 500 mls @ 100 mls/hr IV ONCE PRN; Protocol PRN Reason: Adult Acute Hypoglycemia Prot Furosemide 100 mg/ Sodium (Chloride) 50 mls @ 0 mls/hr IV .Q0M DEBBIE; Protocol Last Titration: 05/04/20 06:18 Dose: Infused Documented by: Piperacillin Sod/Tazobactam (Sod 3.375 gm/ Sodium Chloride) 50 mls @ 12.5 mls/hr IV Q12H [facility]; Protocol Last Admin: 05/05/20 01:03 Dose: 12.5 mls/hr Documented by: Amiodarone HCl 900 mg/Dextrose/ IV Miscellaneous Supplies 518 mls @ 0 mls/hr IV .Q0M DEBBIE; Protocol Last Admin: 05/04/20 23:36 Dose: 0.5 mg/min, 17.3 mls/hr Documented by: Dexmedetomidine HCl 400 mcg/ (Sodium Chloride) 104 mls @ 0 mls/hr IV .Q0M DEBBIE; Protocol Last Admin: 05/05/20 08:13 Dose: 0.7 mcg/kg/hr, 14.9 mls/hr Documented by: Insulin Aspart (Novolog) 0 unit SUBCUT BEDTIME [facility]; Protocol Last Admin: 05/04/20 21:11 Dose: Not Given Documented by: Insulin Aspart (Novolog) 0 unit SUBCUT TIDWM [facility]; Protocol Last Admin: 05/05/20 08:13 Dose: Not Given Documented by: Isosorbide Mononitrate (Imdur) 60 mg PO QAM [facility] Last Admin: 05/05/20 06:07 Dose: Not Given Documented by: Lidocaine HCl (Lidocaine 2% Jelly) 1 applic TOPICAL DAILY PRN PRN Reason: ITCHING Last Admin: 05/04/20 21:28 Dose: 1 applic Documented by: Lorazepam (Ativan) 0.5 mg IVP Q4H PRN PRN Reason: ANXIETY Last Admin: 05/04/20 21:28 Dose: 0.5 mg Documented by: Metolazone (Zaroxolyn) 5 mg PO DAILY [facility] Last Admin: 05/04/20 08:31 Dose: Not Given Documented by: Metoprolol Tartrate (Lopressor) 25 mg PO BID [facility] Last Admin: 04/26/20 08:11 Dose: Not Given Documented by: Metoprolol Tartrate (Metoprolol Tartrate) 5 mg IV Q4H PRN PRN Reason: HR greater than 110 Last Admin: 04/30/20 23:58 Dose: 5 mg Documented by: Multi-Ingredient Ointment (Eucerin) 1 applic TOPICAL BID [facility] Last Admin: 05/04/20 18:03 Dose: 1 applic Documented by: Naloxone HCl (Narcan) 0.1 mg IVP Q2M PRN PRN Reason: OPIATERV Ondansetron HCl (Zofran) 4 mg IVP Q8H PRN PRN Reason: vomiting, or N/V if npo Pantoprazole Sodium (Protonix) 40 mg IVP Q12H [facility] Last Admin: 05/04/20 21:11 Dose: 40 mg Documented by: Potassium Chloride (Potassium Chloride Oral Liquid) 10 meq PO DAILY [facility] Last Admin: 05/04/20 08:31 Dose: Not Given Documented by: Trazodone HCl (Desyrel) 50 mg PO BEDTIME [facility] Last Admin: 05/04/20 21:22 Dose: 50 mg Documented by: Vitals/I&O/Wt Last Vital Signs Temp 98.6 F 05/06/20 00:00 Pulse 92 05/06/20 08:38 Resp 18 05/06/20 08:38 BP 96/62 05/06/20 06:00 Pulse Ox 96 05/06/20 08:38 05/05/20 05/06/20 05/06/20 22:59 06:59 14:59 Intake Total 104.497 / 104.497 102.185 / 206.682 Output Total 175 / 175 450 / 625 Balance -70.503 / -70.503 -347.815 / -418.318 Weight last 48 hrs Weight 76.204 kg Weight 76.158 kg Physical Exam Narrative: EXAM NARRATIVE: Constitutional: Awake and chatting HEENT: Wet mucosa, no jvp, non icteric Lungs: Bilaterally clear coarse, diminished all lung zones CVS: S1 S2, no murmurs Abdo: Soft, BS ok Ext 4: global edema, peripheral perfusion with no cyanosis Neurological: Grossly non-focal Urinary Catheter Management^: Whitley: Cath Placed During This Visit: yes Reason for Continuing Indwelling Catheter: Accurate Measurement of Urinary Output in Critically Ill Patients Urinary Catheter Date of Insertion: 04/22/20 Urinary Catheter Time of Insertion: 18:43 Data : 05/06/20 04:00 05/06/20 04:00 A&P Additional A&P Information 1. JED on CKD Consistent with CRS although cause is not entirely clear Dialyzed yesterday; plan on dialysis again on Friday Tunnelled in the right chest Lasix to single daily dosing Close monitoring for renal recovery Strict ins and outs, avoid usual nephrotoxic medication. 2. Lytes - KLook well blaanced 3. Hypertension, Afib Hemodynamics remain stable 4. Anemia - serial H/H, low iron sat, s/p venofer 5. 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
[2020-05-06] MEDS: LORazepam 2 mg/mL INJ 1 mL 0.5 MG IVP ×2 (10:37→20:05)
--- NOTE | 2020-05-06 11:35 | PC.SOCIAL ---
IMM Updated Page 2 of IMM updated with son via phone and copy provided to patient's bedside. Initialed, dated, and timed and placed back in chart.
[2020-05-06 12:48] LABS: Glucose Point of Care 149 mg/dL (70-110)
--- NOTE | 2020-05-06 13:27 | P.TS_ITS ---
Transfer Summary Providers Date of Admission: 04/21/20 14:40 Date of Discharge: 05/06/20 Attending Provider at Admission: Keesha Arnold DO Attending Provider at Transfer: Bruce Taylor Primary Care Provider: Grover Brooks Anticipated Date of Transfer: Anticipated date of transfer: 05/06/20 Receiving Facility & Provider: Receiving Provider: [] Receiving facility: [] Diagnoses at Discharge Discharge Diagnosis (1) Acute on chronic diastolic (congestive) heart failure: Status: Acute Problem details: Echocardiogram from 04/23/2020 revealed 1. This is a technically very difficult study. 2. Normal left ventricular cavity size. Possibly normal left ventricular systolic function. This study is inadequate for estimation of regional wall motion abnormality. Grade 2 diastolic dysfunction with elevated left atrial pressure. 3. Mild pulmonary hypertension with pulmonary artery pressure estimated at 43 mmHg. 4. Iciy-rd-[id number] tricuspid valve regurgitation. 5. Repeat study with echo contrast is recommended. (2) Acute encephalopathy: Status: Acute (3) Chronic kidney disease: Status: Chronic (4) Lesion of cecum: Status: Acute (5) Otitis media: Status: Acute (6) Chronic anemia: Status: Acute (7) Ventricular tachycardia: Status: Resolved Problem details: -Had previously been on sotalol then switched to amiodarone, no further episodes noted on telemetry (8) High risk medication use: Status: Acute (9) Edema, peripheral: Status: Acute (10) Dyslipidemia: Status: Acute (11) Hypertension: Status: Acute Qualifiers: Hypertension type: essential hypertension Qualified Code(s): I10 - Essential (primary) hypertension (12) Dementia: Status: Chronic Problem details: Lewy body dementia Qualifiers: Dementia behavioral disturbance: without behavioral disturbance Dementia type: Lewy body dementia Qualified Code(s): G31.83 - Dementia with Lewy bodies; F02.80 - Dementia in other diseases classified elsewhere without behavioral disturbance (13) Diabetes mellitus: Status: Chronic Problem details: Qualifiers: Diabetes mellitus complication status: with hyperglycemia Diabetes mellitus long term care social worker insulin use: without long term care social worker use Diabetes mellitus type: type 2 Qualified Code(s): E11.65 - Type 2 diabetes mellitus with hyperglycemia (14) Atrial fibrillation: Status: Acute (15) Pneumonia: Status: Acute (16) Pruritus: Status: Acute Reason for Visit Reason for Visit: Fluid build up Hospital Course Hospital Course: Pleasant 74-year-old gentleman with history of chronic diastolic congestive heart failure, atrial fibrillation, chronic kidney disease, DM 2, HTN, HLD, history of GI bleed, history of ventricular tachycardia, on amiodarone, Lewy body dementia was admitted due to increasing dyspnea on exertion, orthopnea, with noted acute on chronic diastolic congestive heart failure, acute on chronic anemia, initiated on treatment with IV diuresis, however, with difficulties, transition to Bumex and metolazone, however, also with progressive worsening of renal function. Went into acute respiratory failure requiring intubation and mechanical ventilation. Eventually requiring hemodialysis for which a tunneled HD catheter was placed in the right neck. Due to difficulties with Whitley catheter placement had to be seen by urology for phimosis with adhesions. After fusion lysis Whitley was placed. Will need to follow-up with urology in office for reassessment, consideration of dorsal slit circumcision. Anemia stabilized after 2 units PRBC transfusion. Noted to have FOBT positive stool. Was successfully extubated 04/25, initially with BiPAP support. Subsequently oxygenation has been gradually improving with improving volume status Lasix drip, and then with hemodialysis due to worsening renal function, concern for uremia. With alteration mental status, medications were switched to IV, including amiodarone changed to IV infusion. Has been weaning down to high flow oxygen, and currently continue to wean on nasal cannula. Antibiotics were added due to respiratory failure and imaging findings consistent with pneumonia or pneumonitis. Encephalopathy likely multifactorial, with suspected uremia, acute illness, ICU admission, intermittently requiring sedation, and even Precedex drip due to episodes of restlessness, climbing out of bed, pulling on lines. Intermittently given Ativan. Antipsychotics were avoided due to Lewy body dementia. On presentation patient was alert, responsive and oriented. Has been gradually showing some improvement, although very slow. Has initially become more alert, however, with episodes of restlessness, climbing out of bed, pulling on lines, tubes. Requiring for a time a one-to-one sitter. Has been weaning down on Precedex. One-to-one sitter eventually was able to discontinue as he has gradually been becoming more alert and coherent. He is currently oriented to place, not year, is able to answer some basic questions. He has been perseverating on pruritus of his back, buttocks. It does not appear to be related to his chronic pressure wounds on sacrum which have been treated with dressing changes, and will need wound care follow-up. Antihistamines have been tried, although with some limited response, and on the skin he has had no rash, urticaria or lesions. It could have been secondary to uremia as well, although given it is somewhat persistent, hemodialysis may be contributing. Nephrology was going to try to adjust hemodialysis somewhat to see if that may help. Emollient has been applied. He has no noted eosinophilia. Medications were reviewed. His gabapentin has been resumed as well. During hospitalization also noted to have positive blood culture but growing coagulase-negative staph, suspected contamination. Repeat culture without growth. Due to some noted microscopic hematuria, JED, ultrasound was ordered, was noted structure medial to the right kidney, followed up with CT abdomen pelvis with finding of cecal lesion of 5.4 x 3.9 cm in size. This likely may be responsible for his FOBT positive stool and anemia. Additional evaluation by endoscopy is recommended, and was discussed with his son mr Joaquin Gandhi, however, family will be considering whether to pursue this, further discussing with his siblings, and perhaps father if his mental status continues to improve. 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 On evaluation of head CT during encephalopathy also noted to have left side mastoid effusion. Noted otomastoiditis on CT temporal bone. He does not have symptoms of acute invasive mastoiditis on examination, and ear examination is rather unremarkable. He underwent a course of treatment with antibiotics IV in the hospital, and Ciprodex has been added. IV antibiotics are now stopped. Ciprodex continues for now. Please have him follow-up with ENT after discharge for additional assessment. Given prolonged acute encephalopathy/delirium, inconsistent intake of medications, he continues on amiodarone IV infusion due to history of ventricular tachycardia. With some improvement he has been initiated on PT/OT. However, with slow to improve hypoxia, encephalopathy slowly weaning of Precedex drip, renal failure requiring hemodialysis, and a number of other comorbidities additional care was sought at long-term acute care facility where he may continue to recover and continue rehabilitation where he was kindly accepted for further care today. Please see full diagnostic studies and laboratory reports, progress notes for details of hospitalization. Please not hesitate to contact with any questions. Physical Exam Const: COMMON NORMALS: no acute distress ORIENTATION/CONSCIOUSNESS: Yes confused OTHER: More alert and interactive. Today he knows he is in [facility]. Tells me his name. Follows some commands. But one conversation ends, or completes this task continues again repeating with eyes closed please let me itch , trying to reach his buttocks or back to scratch them. HENMT: COMMON NORMALS: oropharynx normal NOSE: Other nasal findings present (Wound on bridge of the nose covered by dressing. ) Neck/C-Spine: COMMON NORMALS: no JVD Chest: OTHER: Temp HD catheter Resp: COMMON NORMALS: normal respiratory effort and clear to auscultation bilaterally AUSCULTATION: clear to auscultation bilaterally Cardio: COMMON NORMALS: no JVD, S1 normal heart sound present, S2 normal heart sound present and No murmurs present (Cardio) RATE: tachycardic HEART SOUNDS: S1 normal heart sound present and S2 normal heart sound present GI: COMMON NORMALS: Normal to inspection, nondistended, normoactive bowel sounds present, Soft to palpation and non-tender PALPATION: Yes Soft to palpation Extremity: COMMON NORMALS: no joint enlargement and no pedal edema Neuro: COMMON NORMALS: moves all extremities Skin: COMMON NORMALS: no rashes or lesions noted GENERAL SKIN EXAM: no rashes or lesions noted OTHER: No urticaria or other rash noted. Continued chronic pressure ulcer both sides of sacrum. Small raw area in the center. Urinary Catheter Management^: Whitley: Cath Placed During This Visit: yes Reason for Continuing Indwelling Catheter: Accurate Measurement of Urinary Output in Critically Ill Patients Urinary Catheter Date of Insertion: 04/22/20 Urinary Catheter Time of Insertion: 18:43 TS Data Data Completed and Pending: Completed Studies During Hospitalization Category Date Time Status CT head wo con* 7 0450 Routine Cat Scan 05/01/20 08:[address] kidney stone 7 4176 Routine Cat Scan 05/04/20 08:[address] temporal bone wo con* [id number] Rout ine Cat Scan 05/04/20 08:00 Completed XR chest 1V amanda ble [id number] Routine Exams 04/24/20 07:00 Completed XR chest 1V amanda ble [id number] Routine Exams 04/27/20 08:18 Completed XR chest 1V amanda ble [id number] Routine Exams 05/01/20 08:23 Completed XR chest 1V amanda ble [id number] Stat Exams 04/21/20 09:33 Completed XR chest 1V amanda ble [id number] Stat Exams 04/22/20 06:41 Completed XR chest 1V amanda ble [id number] Stat Exams 04/22/20 23:15 Completed XR chest 1V amanda ble [id number] Stat Exams 04/23/20 00:19 Completed CV echo complete* [id number] Routine Ultrasound 04/23/20 00:23 Completed CV echo lmt wo/w contras [id number] Rout ine Ultrasound 04/24/20 07:00 Completed US renal BI* [id number] Routine Ultrasound 05/02/20 12:42 Completed US/CV paperwork R outine Ultrasound 04/24/20 08:54 Completed Labs from last 24 hours 05/06/20 05/06/20 05/06/20 12:28 07:48 04:00 WBC RBC Hgb Hct MCV MCH MCHC RDW Plt Count MPV Neut % (Auto) Lymph % (Auto) Sterling % (Auto) Eos % (Auto) Baso % (Auto) Neut # (Auto) Lymph # (Auto) Sterling # (Auto) Eos # (Auto) Baso # (Auto) Nucleated RBC % (a uto) Nucleated RBCs # Sodium 137 Potassium 3.5 Chloride 98 Carbon Dioxide 22 Anion Gap 20.5 H BUN 17 Creatinine 2.5 H GFR Calculation Not Reportable Glucose 177 H POC Glucose 149 199 Calculated Osmolal ity 290 Calcium 8.9 Total Bilirubin 0.3 AST 20 ALT 16 Alkaline Phosphata se 113 Total Protein 6.8 Albumin 3.3 L Globulin 3.5 05/06/20 05/05/20 05/05/20 04:00 21:28 17:10 WBC 6.5 RBC 3.83 L Hgb 9.8 L Hct 33.8 L MCV 88.3 MCH 25.6 L MCHC 29.0 L RDW 16.8 H Plt Count 215 MPV 10.1 Neut % (Auto) 61.9 Lymph % (Auto) 14.8 Sterling % (Auto) 15.0 Eos % (Auto) 6.0 Baso % (Auto) 1.4 Neut # (Auto) 4.01 Lymph # (Auto) 1.0 Sterling # (Auto) 1.0 H Eos # (Auto) 0.4 Baso # (Auto) 0.1 Nucleated RBC % (a uto) 0 Nucleated RBCs # 0.0 Sodium Potassium Chloride Carbon Dioxide Anion Gap BUN Creatinine GFR Calculation Glucose POC Glucose 119 181 Calculated Osmolal ity Calcium Total Bilirubin AST ALT Alkaline Phosphata se Total Protein Albumin Globulin Vitals: Last Vital Signs Temp 96.8 F L 05/06/20 13:12 Pulse 97 05/06/20 13:12 Resp 22 H 05/06/20 13:12 BP 136/57 05/06/20 13:12 Pulse Ox 92 05/06/20 13:12 TS Medications Medications Home Medications chlorpheniramine maleate 4 mg tablet 4 mg PO Q6H 07/25/19 [History Confirmed 04/21/20] cholecalciferol (vitamin D3) 50 mcg (2,000 unit) tablet 1,000 unit PO DAILY tab 07/25/19 [History Confirmed 04/21/20] colestipol 1 gram tablet 4 gm PO BID 07/25/19 [History Confirmed 04/21/20] gabapentin 400 mg capsule 400 mg PO DAILY cap 07/25/19 [History Confirmed 04/21/20] isosorbide mononitrate 60 mg tablet,extended release 24 hr 60 mg PO QAM 07/25/19 [History Confirmed 04/21/20] omega-3 fatty acids 1,000 mg capsule 1,000 mg PO BID 07/25/19 [History Confirmed 04/21/20] amlodipine 10 mg PO DAILY #60 tab 08/03/19 [Rx Confirmed 04/21/20] glipizide 5 mg PO BID #60 tab 08/03/19 [Rx Confirmed 04/21/20] multivitamin with iron-mineral 1 tab PO DAILY #30 tab 08/03/19 [Rx Confirmed 04/21/20] amiodarone [Pacerone] See Rx Instructions .ROUTE .COMPLEX #60 tab 02/15/20 [Rx Confirmed 04/21/20] metoprolol tartrate 50 mg PO BID #60 tab 02/15/20 [Rx Confirmed 04/21/20] pantoprazole 40 mg PO DAILY #30 tab 02/15/20 [Rx Confirmed 04/21/20] potassium chloride 10 meq PO DAILY #30 tab 02/15/20 [Rx Confirmed 04/21/20] furosemide 20 mg tablet 20 mg PO DAILY tab 03/27/20 [History Confirmed 04/21/20] hydralazine 25 mg tablet 25 mg PO TID 30 Days #90 tab 03/27/20 [Rx Confirmed 04/21/20] furosemide [Lasix] 40 mg PO DAILY #30 tab 04/13/20 [Rx Confirmed 04/21/20] atorvastatin 10 mg PO BEDTIME 04/21/20 [History Confirmed 04/21/20] ferrous sulfate 325 mg PO DAILY 04/21/20 [History Confirmed 04/21/20] trazodone 50 mg PO BEDTIME 04/21/20 [History Confirmed 04/21/20] Active Medications Acetaminophen (Tylenol) 650 mg PO Q6H PRN PRN Reason: Mild/Mod Pain Or Temp >/= 101 Last Admin: 04/29/20 18:06 Dose: 650 mg Documented by: Albuterol/Ipratropium (Duoneb) 3 ml INHALATION Q4H.RESPIRATORY DEBBIE Last Admin: 05/06/20 08:28 Dose: 3 ml Documented by: Amiodarone HCl (Cordarone) 200 mg PO DAILY [facility] Last Admin: 04/28/20 08:58 Dose: Not Given Documented by: Amlodipine Besylate (Norvasc) 10 mg PO DAILY [facility] Last Admin: 04/23/20 09:39 Dose: 10 mg Documented by: Atorvastatin Calcium (Lipitor) 20 mg PO BEDTIME DEBBIE Last Admin: 05/05/20 21:04 Dose: 20 mg Documented by: Bisacodyl (Dulcolax) 10 mg PO DAILY PRN PRN Reason: CONSTIPATION Ciprofloxacin/Dexamethasone (Ciprodex) 4 drop EAR-LEFT BID DEBBIE; Protocol Last Admin: 05/06/20 09:56 Dose: 4 drop Documented by: Dextrose (D50w) 25 ml IVP ONCE PRN; Protocol PRN Reason: hypoglycemia protocol Dextrose (D50w) 50 ml IVP PRN PRN; Protocol PRN Reason: hypoglycemia protocol Ferrous Sulfate (Ferrous Sulfate) 325 mg PO BIDWM [facility] Last Admin: 05/06/20 07:57 Dose: 325 mg Documented by: Furosemide (Lasix) 40 mg PO DAILY@0800 DEBBIE Last Admin: 05/06/20 07:57 Dose: 40 mg Documented by: Gabapentin (Neurontin) 400 mg PO DAILY [facility] Last Admin: 05/06/20 09:53 Dose: 400 mg Documented by: Glucagon (Glucagen) 1 mg IM ONCE PRN; Protocol PRN Reason: Adult Acute Hypoglycemia Prot. Hydralazine HCl (Apresoline) 25 mg PO TID [facility] Last Admin: 05/06/20 09:53 Dose: 25 mg Documented by: Hydroxyzine Pamoate (Vistaril) 25 mg PO QPM PRN PRN Reason: ITCHING Last Admin: 05/05/20 21:05 Dose: 25 mg Documented by: Dextrose (D5w) 500 mls @ 100 mls/hr IV ONCE PRN; Protocol PRN Reason: Adult Acute Hypoglycemia Prot Furosemide 100 mg/ Sodium (Chloride) 50 mls @ 0 mls/hr IV .Q0M DEBBIE; Protocol Last Titration: 05/04/20 06:18 Dose: Infused Documented by: Amiodarone HCl 900 mg/Dextrose/ IV Miscellaneous Supplies 518 mls @ 0 mls/hr IV .Q0M DEBBIE; Protocol Last Admin: 05/04/20 23:36 Dose: 0.5 mg/min, 17.3 mls/hr Documented by: Dexmedetomidine HCl 400 mcg/ (Sodium Chloride) 104 mls @ 0 mls/hr IV .Q0M DEBBIE; Protocol Last Titration: 05/06/20 07:30 Dose: 0 mcg/kg/hr, 0 mls/hr Documented by: Insulin Aspart (Novolog) 0 unit SUBCUT BEDTIME [facility]; Protocol Last Admin: 05/05/20 21:58 Dose: Not Given Documented by: Insulin Aspart (Novolog) 0 unit SUBCUT TIDWM [facility]; Protocol Last Admin: 05/06/20 08:04 Dose: 6 unit Documented by: Isosorbide Mononitrate (Imdur) 60 mg PO QAM [facility] Last Admin: 05/06/20 05:17 Dose: 60 mg Documented by: Lidocaine HCl (Lidocaine 2% Jelly) 1 applic TOPICAL DAILY PRN PRN Reason: ITCHING Last Admin: 05/04/20 21:28 Dose: 1 applic Documented by: Lorazepam (Ativan) 0.5 mg IVP Q4H PRN PRN Reason: ANXIETY Last Admin: 05/04/20 21:28 Dose: 0.5 mg Documented by: Metoprolol Tartrate (Lopressor) 25 mg PO BID [facility] Last Admin: 04/26/20 08:11 Dose: Not Given Documented by: Metoprolol Tartrate (Metoprolol Tartrate) 5 mg IV Q4H PRN PRN Reason: HR greater than 110 Last Admin: 04/30/20 23:58 Dose: 5 mg Documented by: Multi-Ingredient Ointment (Eucerin) 1 applic TOPICAL BID [facility] Last Admin: 05/06/20 09:53 Dose: 1 applic Documented by: Naloxone HCl (Narcan) 0.1 mg IVP Q2M PRN PRN Reason: OPIATERV Ondansetron HCl (Zofran) 4 mg IVP Q8H PRN PRN Reason: vomiting, or N/V if npo Pantoprazole Sodium (Protonix) 40 mg IVP Q12H [facility] Last Admin: 05/06/20 09:52 Dose: 40 mg Documented by: Potassium Chloride (Potassium Chloride Oral Liquid) 10 meq PO DAILY [facility] Last Admin: 05/06/20 09:54 Dose: 10 meq Documented by: Trazodone HCl (Desyrel) 50 mg PO BEDTIME [facility] Last Admin: 05/05/20 21:05 Dose: 50 mg Documented by: Discharge Plan Discharge Patient Disposition: Xfer Intermediate Care Fac Condition: Stable Prescriptions: No Action isosorbide mononitrate 60 mg tablet extended release 24 hr 60 mg PO QAM RF: 0 cholecalciferol (vitamin D3) 2,000 unit tablet 1,000 unit PO DAILY RF: 0 chlorpheniramine maleate [Allergy Relief(chlorpheniramn)] 4 mg tablet 4 mg PO Q6H RF: 0 gabapentin 400 mg capsule 400 mg PO DAILY RF: 0 omega-3 fatty acids [Fish Oil Concentrate] 1,000 mg capsule 1,000 mg PO BID RF: 0 colestipol 1 gram tablet 4 gm PO BID RF: 0 furosemide 20 mg tablet 20 mg PO DAILY RF: 0 hydralazine 25 mg tablet 25 mg PO TID 30 Days Qty: 90 RF: 5 amlodipine 5 mg Tablet 10 mg PO DAILY Qty: 60 RF: 0 multivitamin with iron-mineral Tablet Extended Release 1 tab PO DAILY Qty: 30 RF: 0 glipizide 5 mg tablet 5 mg PO BID Qty: 60 RF: 0 amiodarone [Pacerone] 200 mg Tablet See Rx Instructions .ROUTE .COMPLEX Qty: 60 RF: 0 metoprolol tartrate 50 mg Tablet 50 mg PO BID Qty: 60 RF: 0 pantoprazole 40 mg Tablet,Delayed Release (Dr/Ec) 40 mg PO DAILY Qty: 30 RF: 0 potassium chloride 10 mEq Tablet Extended Release 10 meq PO DAILY Qty: 30 RF: 0 furosemide [Lasix] 40 mg tablet 40 mg PO DAILY Qty: 30 RF: 0 atorvastatin 10 mg tablet 10 mg PO BEDTIME RF: 0 trazodone 50 mg Tablet 50 mg PO BEDTIME RF: 0 ferrous sulfate 325 mg (65 mg iron) Tablet 325 mg PO DAILY RF: 0 Discharge Orders: Transfer Out of Facility (Order); Ordered 05/06/20 Ordered By: Bruce Taylor Referrals: [facility] [Provider Group] Nephrology [Provider Group] Jared Orlando MD [Physician] - Oseas Del Real MD [Physician] - Grover Brooks [Primary Care Provider] - Activity Restrictions/Additional Instructions: Continue dysphagia level 1 diet, aspiration precautions. 2 g sodium restriction and 1500 mL fluid restriction. Continue assessments by speech therapy. If mental status continues to improve, able to take oral medication consistently, switch to oral amiodarone for ventricular tachycardia. Wean off Precedex sedation as tolerating. Continue nephrology follow-up. Hemodialysis for CHF. Please discuss with nephrology to adjust hemodialysis to see if anything can be done to reduce possible complication of pruritus. Continue to wean down oxygen. Continue emollient application to skin for pruritus. Conservative measures. Antihistamine as needed, although has not been very effective. Continue goals of care discussions with his sons with regards to finding of incidental lesion in the cecum possibly malignant and further wishes regarding referral for any additional evaluation or treatment. Continue to monitor hemoglobin due to chronic anemia, positive Hemoccult. Continue wound care for chronic sacral pressure ulcers Refer to urology after discharge for reassessment of phimosis after urology had to place catheter due to difficulties with insertion. Refer to ENT after discharge for assessment of otomastoiditis on the left side. Continue Ciprodex. Continue PT/OT/rehabilitation. Transfer Attestations Time Spent in Transfer Care*: greater than 30 min Status at Transfer: Cognitive status at transfer: cognitively intact , Behavioral status at transfer: cooperative , Quality Metrics Clinical Quality Measures: During this hospital stay, did patient experience: None Coding Level of Care Code Acute Tool Maker for Chg Fwd Exam Comprehensive Diagnoses Acute on chronic diastolic (congestive) heart failure I50.33 Acute encephalopathy G93.40 Chronic kidney disease N18.9 Lesion of cecum K63.9 Otitis media H66.90 Chronic anemia D64.9 Ventricular tachycardia I47.2 High risk medication use Z79.899 Edema, peripheral R60.9 Dyslipidemia E78.5 Hypertension I10 Hypertension type: essential hypertension Dementia G31.83; F02.80 Dementia behavioral disturbance: without behavioral disturbance Dementia type: Lewy body dementia Diabetes mellitus E11.65 Diabetes mellitus complication status: with hyperglycemia Diabetes mellitus correction insulin use: without long term care social worker use Diabetes mellitus type: type 2 Atrial fibrillation I48.91 Pneumonia J18.9 Pruritus L29.9
[2020-05-06] MEDS: metoprolol tartrate 1 mg/1 mL SDV 5 mL 5 MG IV (13:46)
--- NOTE | 2020-05-06 13:49 | PM.PN ---
Subjective Subjective: Interval history: Gagan Gandhi is a 74 year old male with past medical history of paroxysmal atrial fibrillation (failed sotalol), diastolic congestive heart failure, hypertension, type 2 diabetes mellitus, chronic kidney disease (Cr-1.9-2.1), dyslipidemia chronic anemia, nonsustained ventricular tachycardia, and Lewy body dementia. He was hospitalized back in January with atrial fibrillation with RVR, anemia and heart failure. He was found to have GI bleed requiring 1 unit packed red blood cell transfusions. He was started on amiodarone and anticoagulation was held given GI bleed and worsening anemia. His left ventricular ejection fraction at the time was 45 to 50% with diffuse hypokinesis. He did not respond well to diuretics and ended up being on dialysis via tunnel catheter. He continues to be in intermittent atrial fibrillation with rapid medical response requiring IV metoprolol as well as on IV amiodarone drip. Patient denies any chest pain. He still remains on IV amiodarone at 0.5. He is due to be transferred to [facility] today. 625 mL of urine output today. Medications: Reviewed: Yes Medication Review Details: Current Medications Acetaminophen (Tylenol) 650 mg PO Q6H PRN PRN Reason: Mild/Mod Pain Or Temp >/= 101 Last Admin: 04/29/20 18:06 Dose: 650 mg Documented by: Albuterol/Ipratropium (Duoneb) 3 ml INHALATION Q4H.RESPIRATORY DEBBIE Last Admin: 05/06/20 08:28 Dose: 3 ml Documented by: Amiodarone HCl (Cordarone) 200 mg PO DAILY DEBBIE Last Admin: 04/28/20 08:58 Dose: Not Given Documented by: Amlodipine Besylate (Norvasc) 10 mg PO DAILY DEBBIE Last Admin: 04/23/20 09:39 Dose: 10 mg Documented by: Atorvastatin Calcium (Lipitor) 20 mg PO BEDTIME DEBBIE Last Admin: 05/05/20 21:04 Dose: 20 mg Documented by: Bisacodyl (Dulcolax) 10 mg PO DAILY PRN PRN Reason: CONSTIPATION Ciprofloxacin/Dexamethasone (Ciprodex) 4 drop EAR-LEFT BID DEBBIE; Protocol Last Admin: 05/06/20 09:56 Dose: 4 drop Documented by: Dextrose (D50w) 25 ml IVP ONCE PRN; Protocol PRN Reason: hypoglycemia protocol Dextrose (D50w) 50 ml IVP PRN PRN; Protocol PRN Reason: hypoglycemia protocol Ferrous Sulfate (Ferrous Sulfate) 325 mg PO BIDWM DEBBIE Last Admin: 05/06/20 07:57 Dose: 325 mg Documented by: Furosemide (Lasix) 40 mg PO DAILY@0800 DEBBIE Last Admin: 05/06/20 07:57 Dose: 40 mg Documented by: Gabapentin (Neurontin) 400 mg PO DAILY DEBBIE Last Admin: 05/06/20 09:53 Dose: 400 mg Documented by: Glucagon (Glucagen) 1 mg IM ONCE PRN; Protocol PRN Reason: Adult Acute Hypoglycemia Prot. Hydralazine HCl (Apresoline) 25 mg PO TID DEBBIE Last Admin: 05/06/20 09:53 Dose: 25 mg Documented by: Hydroxyzine Pamoate (Vistaril) 25 mg PO QPM PRN PRN Reason: ITCHING Last Admin: 05/05/20 21:05 Dose: 25 mg Documented by: Dextrose (D5w) 500 mls @ 100 mls/hr IV ONCE PRN; Protocol PRN Reason: Adult Acute Hypoglycemia Prot Furosemide 100 mg/ Sodium (Chloride) 50 mls @ 0 mls/hr IV .Q0M DEBBIE; Protocol Last Titration: 05/04/20 06:18 Dose: Infused Documented by: Amiodarone HCl 900 mg/Dextrose/ IV Miscellaneous Supplies 518 mls @ 0 mls/hr IV .Q0M DEBBIE; Protocol Last Admin: 05/04/20 23:36 Dose: 0.5 mg/min, 17.3 mls/hr Documented by: Dexmedetomidine HCl 400 mcg/ (Sodium Chloride) 104 mls @ 0 mls/hr IV .Q0M DEBBIE; Protocol Last Titration: 05/06/20 07:30 Dose: 0 mcg/kg/hr, 0 mls/hr Documented by: Insulin Aspart (Novolog) 0 unit SUBCUT BEDTIME DEBBIE; Protocol Last Admin: 05/05/20 21:58 Dose: Not Given Documented by: Insulin Aspart (Novolog) 0 unit SUBCUT TIDWM DEBBIE; Protocol Last Admin: 05/06/20 08:04 Dose: 6 unit Documented by: Isosorbide Mononitrate (Imdur) 60 mg PO QAM [facility] Last Admin: 05/06/20 05:17 Dose: 60 mg Documented by: Lidocaine HCl (Lidocaine 2% Jelly) 1 applic TOPICAL DAILY PRN PRN Reason: ITCHING Last Admin: 05/04/20 21:28 Dose: 1 applic Documented by: Lorazepam (Ativan) 0.5 mg IVP Q4H PRN PRN Reason: ANXIETY Last Admin: 05/06/20 10:37 Dose: 0.5 mg Documented by: Metoprolol Tartrate (Lopressor) 25 mg PO BID [facility] Last Admin: 04/26/20 08:11 Dose: Not Given Documented by: Metoprolol Tartrate (Metoprolol Tartrate) 5 mg IV Q4H PRN PRN Reason: HR greater than 110 Last Admin: 05/06/20 13:46 Dose: 5 mg Documented by: Multi-Ingredient Ointment (Eucerin) 1 applic TOPICAL BID [facility] Last Admin: 05/06/20 09:53 Dose: 1 applic Documented by: Naloxone HCl (Narcan) 0.1 mg IVP Q2M PRN PRN Reason: OPIATERV Ondansetron HCl (Zofran) 4 mg IVP Q8H PRN PRN Reason: vomiting, or N/V if npo Pantoprazole Sodium (Protonix) 40 mg IVP Q12H [facility] Last Admin: 05/06/20 09:52 Dose: 40 mg Documented by: Potassium Chloride (Potassium Chloride Oral Liquid) 10 meq PO DAILY [facility] Last Admin: 05/06/20 09:54 Dose: 10 meq Documented by: Trazodone HCl (Desyrel) 50 mg PO BEDTIME [facility] Last Admin: 05/05/20 21:05 Dose: 50 mg Documented by: Vitals/I&O/Wt Last Vital Signs Temp 96.8 F L 05/06/20 13:12 Pulse 97 05/06/20 13:12 Resp 22 H 05/06/20 13:12 BP 136/57 05/06/20 13:12 Pulse Ox 92 05/06/20 13:12 05/05/20 05/06/20 05/06/20 22:59 06:59 14:59 Intake Total 104.497 / 104.497 102.185 / 206.682 496.202 / 496.202 Output Total 175 / 175 450 / 625 Balance -70.503 / -70.503 -347.815 / -418.318 496.202 / 496.202 Weight last 48 hrs Weight 168 lb Weight 167 lb 14.4 oz Physical Exam Narrative: EXAM NARRATIVE: GENERAL: Averagely built and averagely nourished in no acute distress HEENT: Pupils equal round reactive to light. No pallor or icterus. NECK: central trachea, No JVD. CARDIOVASCULAR SYSTEM: S1-S2 irregular, tachycardia present RESPIRATORY SYSTEM: Chest clear to auscultation. No wheezes rhonchi or rubs heard. No use of accessory muscles. ABDOMEN: Soft, nontender and nondistended. Normal bowel sounds present. 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 SKIN: Normal turgor and temperature. No breakdown, rash noted. Urinary Catheter Management^: Whitley: Cath Placed During This Visit: yes Reason for Continuing Indwelling Catheter: Accurate Measurement of Urinary Output in Critically Ill Patients Urinary Catheter Date of Insertion: 04/22/20 Urinary Catheter Time of Insertion: 18:43 Data : 05/06/20 04:00 05/06/20 04:00 A&P Assessment and plan (1) Congestive heart failure: Urine chronic congestive heart failure with midrange ejection fraction. LV EF 45 to 50% by last echocardiogram. Fluid management through dialysis. -Continue Lasix 40 mg daily. Urine output ~600 mL today. Status: Acute Qualifiers: Heart failure type: diastolic Heart failure chronicity: acute on chronic Qualified Code(s): I50.33 - Acute on chronic diastolic (congestive) heart failure (2) Atrial fibrillation: Paroxysmal atrial fibrillation with RVR -Switch to amiodarone 200 mg daily and start on metoprolol tartrate 25 mg twice a day -Continue to use metoprolol IV as needed Status: Acute Qualifiers: Atrial fibrillation type: paroxysmal Qualified Code(s): I48.0 - Paroxysmal atrial fibrillation (3) Acute renal failure: JED super imposed on chronic kidney disease -Creatinine has been improving -Dialysis as per nephrology. Status: Acute Qualifiers: Acute renal failure type: unspecified Qualified Code(s): N17.9 - Acute kidney failure, unspecified (4) Diabetes mellitus: Status: Chronic Qualifiers: Diabetes mellitus type: type 2 Diabetes mellitus fdc insulin use: without intermediate project manager use Diabetes mellitus complication status: with hyperglycemia Qualified Code(s): E11.65 - Type 2 diabetes mellitus with hyperglycemia (5) Anemia: Status: Acute Qualifiers: Anemia type: iron deficiency Iron deficiency anemia type: chronic blood loss Qualified Code(s): D50.0 - Iron deficiency anemia secondary to blood loss (chronic) Additional A&P Information Altered mental status Thank you for allowing me to participate in patient's care. Please feel free to call with questions or concerns. Attestations Medical Necessity Statement*: As per primary team. Coding Level of Care Code Acute Sea Kayaking Guide for [facility] Fwd Diagnoses Congestive heart failure I50.33 Heart failure type: diastolic Heart failure chronicity: acute on chronic Atrial fibrillation I48.0 Atrial fibrillation type: paroxysmal Acute renal failure N17.9 Acute renal failure type: unspecified Diabetes mellitus E11.65 Diabetes mellitus type: type 2 Diabetes mellitus intermediate project manager insulin use: without fdc use Diabetes mellitus complication status: with hyperglycemia Anemia D50.0 Anemia type: iron deficiency Iron deficiency anemia type: chronic blood loss
--- NOTE | 2020-05-06 14:02 | ECG_ITS ---
[facility] Test Date: 2020-05-06 Pat Name: Gagan Gandhi Department: Room: ICU07 Gender: Male Lead Mason Tender: : 1945 Requested By: Sonja Smith Order Number: [id number] Gabrielle MD: Sonja Smith M.D. Measurements Intervals [place] Rate: 109 P: FL: -1 QRS: -31 QRSD: 106 T: 125 QT: 336 QTc: 453 Interpretive Statements ATRIAL FIBRILLATION WITH RAPID VENTRICULAR RESPONSE MARKED LEFT AXIS DEVIATION [QRS AXIS < -30] ST DEVIATION AND MODERATE T-WAVE ABNORMALITY, CONSIDER LATERAL ISCHEMIA Compared to ECG 04/23/2020 08:40:56 Left-axis deviation now present Sinus bradycardia no longer present T-wave abnormality still present Possible ischemia still present Electronically Signed On 05-07-2020 14:27:15 CDT by Sonja Smith M.D. [email or web address] general [email or web address] [email or web address] valley community [email or web address]/[id number] f
[2020-05-06] MEDS: metoprolol tartrate 25 mg Tablet PO (16:45)
[2020-05-06] MEDS: amiodarone 200 mg Tablet PO (16:45)
[2020-05-06 17:31] LABS: Glucose Point of Care 147 mg/dL (70-110)
--- NOTE | 2020-05-06 17:46 | PC.NURSE ---
Pt was transferred to CSU via bed. Report calledArleen Hernandez notified that [facility] fell through.
[2020-05-06] MEDS: trazodone 50 mg Tablet PO (20:05)
[2020-05-06] MEDS: atorvastatin 40 mg Tablet 20 MG PO (20:05)
[2020-05-06] MEDS: hyDROXYzine 25 mg Capsule PO (20:05)
[2020-05-06 20:41] LABS: Glucose Point of Care 102 mg/dL (70-110)
[2020-05-07] VITALS (11 sets, daily range): BP systolic 125–135; BP diastolic 57–66; PULSE 71–109; RESP 14–29; TEMP 36.9–37.8; O2SAT 91–95; BMI 25.7
--- NOTE | 2020-05-07 01:34 | PC.NURSE ---
PT WAS TRANSFFERED TO CSU FROM ICU BEFORE SHIFT CHANGE. REPORT WASN'T CALLED UNTIL ABOUT 1930 D/T UNEXPECTED COMPLICATIONS. PT IS RESTING IN BED. PT IS CONFUSED AND DISORIENTATED. PT CAN STATE THAT THEY ARE AT THE HOSPITAL ([facility] [place] BUT THINKS THAT IT IS IN [place]. PT DENIES PAIN. PT WAS QUITE RESTLESS AND C/O ITCHING. WET PROCESS MILLER HEAD ASSISTANT NURSE GAVE ATIVAN IVP. THIS NURSE GAVE PRN VISTARIL. WILL CONTINUE TO MONITOR.
[2020-05-07] MEDS: LORazepam 2 mg/mL INJ 1 mL 0.5 MG IVP ×3 (02:05→16:09)
[2020-05-07] MEDS: ipratropium-albuterol 3 mL Neb INHALATION ×3 (02:16→12:04)
[2020-05-07 05:16] LABS: Basophils # 0.1 10^3/uL (0.0-0.1); Basophils % 1.3 %; Eosinophils # 0.5 10^3/uL (0.0-0.8); Eosinophils % 5.7 %; Hematocrit 35.8 % (42.0-52.0); Hemoglobin 10.4 g/dL (11.7-16.6); Lymphocytes # 1.1 10^3/uL (0.8-4.8); Lymphocytes % 13.3 %; Mean Corpuscular HGB Conc 29.1 g/dL (30.0-36.0); Mean Corpuscular Hemoglobin 25.9 pg (28.0-34.0); Mean Corpuscular Volume 89.1 fL (80-94); Mean Platelet Volume 9.8 fL (7.4-10.4); Monocytes # 1.2 10^3/uL (0.2-0.9); Monocytes % 13.8 %; Neutrophils # 5.51 10^3/uL (1.8-7.7); Neutrophils % 65.2 %; Nucleated Red Blood Cells % 0 %; Platelet Count 264 10^3/cmm (130-400); Red Blood Count 4.02 10^6/uL (4.1-5.3); Red Cell Distribution Width 16.9 % (12.1-15.1); White Blood Count 8.5 10^3/uL (4.0-10.0)
[2020-05-07] MEDS: isosorbide mononitrate ER 60 mg Tablet PO (05:36)
[2020-05-07 05:37] LABS: Alanine Aminotransferase 17 U/L (0-41); Albumin Level 3.6 g/dL (3.5-5.2); Alkaline Phosphatase 113 IU/L (40-130); Anion Gap 20.3 (5-19); Aspartate Amino Transferase 21 U/L (0-40); Blood Urea Nitrogen 25 mg/dL (8-23); Calcium 9.4 mg/dL (8.5-10.5); Carbon Dioxide 23 mmol/L (22-29); Chloride 98 mmol/L (98-107); Globulin 3.5 g/dL (1.3-4.6); Glucose 165 mg/dL (65-115); Osmolality Calculated 294 mOsm/kg (285-295); Potassium 3.3 mmol/L (3.5-5.1); Sodium 138 mmol/L (136-145); Total Bilirubin 0.4 mg/dL (0.15-1.2); Total Protein 7.1 g/dL (6.6-8.7)
[2020-05-07 06:39] LABS: Glucose Point of Care 151 mg/dL (70-110)
--- NOTE | 2020-05-07 06:47 | PC.NURSE ---
PT C/O ITCHING. PT WANTS STAFF TO SCRATCH BACK AND LEGS. PT STILL ON AN AMIODARONE GTTS. PT DENIES PAIN. WILL CONTINUE TO MONITOR.
[2020-05-07] MEDS: gabapentin 400 mg Capsule PO (09:11)
[2020-05-07] MEDS: FUROsemide 40 mg Tablet PO (09:11)
[2020-05-07] MEDS: metoprolol tartrate 25 mg Tablet PO (09:11)
[2020-05-07] MEDS: ferrous sulfate EC 325 mg Tablet PO (09:12)
[2020-05-07] MEDS: hyDRALAzine 25 mg Tablet PO (09:12)
[2020-05-07] MEDS: amiodarone 200 mg Tablet PO (09:12)
[2020-05-07] MEDS: potassium chloride oral liq 20 mEq/15 mL UDC 10 MEQ PO (09:12)
[2020-05-07] MEDS: pantoprazole 40 mg SDV IVP (09:13)
[2020-05-07] MEDS: ciprofloxacin-dexameth Otic Susp 7.5 mL Btl 4 DROP EAR-LEFT (09:30)
--- NOTE | 2020-05-07 11:00 | PM.PN ---
Subjective Subjective: Interval history: Had agitation requiring medication delaying transfer. Gutierrez RN reports urine output greater than recorded, possibly 1500 ml/24 hour Medications: Reviewed: Yes (on amiodarone infusion, oral furosemide) Vitals/I&O/Wt Last Vital Signs Temp 100.0 F H 05/07/20 08:00 Pulse 81 05/07/20 08:00 Resp 21 H 05/07/20 08:00 BP 127/66 05/07/20 08:00 Pulse Ox 92 05/07/20 07:49 05/06/20 05/07/20 05/07/20 22:59 06:59 14:59 Intake Total 240 / 240 Balance 240 / 240 Weight last 48 hrs Weight 76.839 kg Weight 76.204 kg Physical Exam Const: COMMON NORMALS: no acute distress GENERAL APPEARANCE: cooperative ORIENTATION/CONSCIOUSNESS: Yes awake Neck/C-Spine: OTHER: eetunneled right IJ dialysis catheter Resp: COMMON NORMALS: normal respiratory effort Cardio: COMMON NORMALS: negative for regular rhythm (irregular) RHYTHM: abnormal rhythm (irregular) Extremity: GENERAL: Yes edema (trace) Urinary Catheter Management^: Jaquez: Cath Placed During This Visit: yes Reason for Continuing Indwelling Catheter: Accurate Measurement of Urinary Output in Critically Ill Patients Urinary Catheter Date of Insertion: 04/22/20 Urinary Catheter Time of Insertion: 18:43 Data : 05/07/20 04:27 05/07/20 04:27 Other Labs: albumin 3.6, calcium 9.4 A&P Additional A&P Information 1. Acute kidney injury/chronic kidney disease, receiving hemodialysis MWF 2. Low grade temperature, check urinalysis and C&S, Blood culture if temperature increases further. Remove jaquez if possible. 3. CHF, Atrial fibrillation - stable 4. Anemia improved 5. Hypokalemia, increase potassium supplement. Recommend: HD 05/08, 3.5 hours, 2 liter UF as BP tolerates. Check phosphorus level. Attestations Medical Necessity Statement*: per primary service Time Spent in Patient Care: Greater than 35 minutes Coding Level of Care Code Acute Carding Supervisor for Maylin Morales
[2020-05-07 11:18] LABS: Glucose Point of Care 161 mg/dL (70-110)
--- NOTE | 2020-05-07 11:46 | P.PN_ITS ---
Subjective Subjective: Interval history: nereida Gandhi is a 74 year old male with past medical history of paroxysmal atrial fibrillation (failed sotalol), diastolic congestive heart failure, hypertension, type 2 diabetes mellitus, chronic kidney disease (Cr-1.9-2.1), dyslipidemia chronic anemia, nonsustained ventricular tachycardia, and Lewy body dementia. He was hospitalized back in January with atrial fibrillation with RVR, anemia and heart failure. He was found to have GI bleed requiring 1 unit packed red blood cell transfusions. He was started on amiodarone and anticoagulation was held given GI bleed and worsening anemia. His left ventricular ejection fraction at the time was 45 to 50% with diffuse hypokinesis. He did not respond well to diuretics and ended up being on dialysis via tunnel catheter. He continues to be in intermittent atrial fibrillation with rapid medical response requiring IV metoprolol as well as on IV amiodarone drip. Unfortunately he was not transferred to [facility] yesterday. He aspirated and has a low-grade grade temp today. Medications: Reviewed: Yes Medication Review Details: Current Medications Acetaminophen (Tylenol) 650 mg PO Q6H PRN PRN Reason: Mild/Mod Pain Or Temp >/= 101 Last Admin: 04/29/20 18:06 Dose: 650 mg Documented by: Albuterol/Ipratropium (Duoneb) 3 ml INHALATION Q4H.RESPIRATORY DEBBIE Last Admin: 05/07/20 07:47 Dose: 3 ml Documented by: Amiodarone HCl (Cordarone) 200 mg PO DAILY DEBBIE Last Admin: 05/07/20 09:12 Dose: 200 mg Documented by: Amlodipine Besylate (Norvasc) 10 mg PO DAILY DEBBIE Last Admin: 04/23/20 09:39 Dose: 10 mg Documented by: Atorvastatin Calcium (Lipitor) 20 mg PO BEDTIME DEBBIE Last Admin: 05/06/20 20:05 Dose: 20 mg Documented by: Bisacodyl (Dulcolax) 10 mg PO DAILY PRN PRN Reason: CONSTIPATION Ciprofloxacin/Dexamethasone (Ciprodex) 4 drop EAR-LEFT BID DEBBIE; Protocol Last Admin: 05/07/20 09:30 Dose: 4 drop Documented by: Dextrose (D50w) 25 ml IVP ONCE PRN; Protocol PRN Reason: hypoglycemia protocol Dextrose (D50w) 50 ml IVP PRN PRN; Protocol PRN Reason: hypoglycemia protocol Ferrous Sulfate (Ferrous Sulfate) 325 mg PO BIDWM DEBBIE Last Admin: 05/07/20 09:12 Dose: 325 mg Documented by: Furosemide (Lasix) 40 mg PO DAILY@0800 DEBBIE Last Admin: 05/07/20 09:11 Dose: 40 mg Documented by: Gabapentin (Neurontin) 400 mg PO DAILY [facility] Last Admin: 05/07/20 09:11 Dose: 400 mg Documented by: Glucagon (Glucagen) 1 mg IM ONCE PRN; Protocol PRN Reason: Adult Acute Hypoglycemia Prot. Hydralazine HCl (Apresoline) 25 mg PO TID DEBBIE Last Admin: 05/07/20 09:12 Dose: 25 mg Documented by: Hydroxyzine Pamoate (Vistaril) 25 mg PO QPM PRN PRN Reason: ITCHING Last Admin: 05/06/20 20:05 Dose: 25 mg Documented by: Dextrose (D5w) 500 mls @ 100 mls/hr IV ONCE PRN; Protocol PRN Reason: Adult Acute Hypoglycemia Prot Furosemide 100 mg/ Sodium (Chloride) 50 mls @ 0 mls/hr IV .Q0M DEBBIE; Protocol Last Titration: 05/04/20 06:18 Dose: Infused Documented by: Amiodarone HCl 900 mg/Dextrose/ IV Miscellaneous Supplies 518 mls @ 0 mls/hr IV .Q0M DEBBIE; Protocol Last Admin: 05/04/20 23:36 Dose: 0.5 mg/min, 17.3 mls/hr Documented by: Dexmedetomidine HCl 400 mcg/ (Sodium Chloride) 104 mls @ 0 mls/hr IV .Q0M DEBBIE; Protocol Last Titration: 05/06/20 07:30 Dose: 0 mcg/kg/hr, 0 mls/hr Documented by: Piperacillin Sod/Tazobactam (Sod 3.375 gm/ Sodium Chloride) 50 mls @ 12.5 mls/hr IV Q12H DEBBIE; Protocol Insulin Aspart (Novolog) 0 unit SUBCUT BEDTIME DEBBIE; Protocol Last Admin: 05/06/20 20:13 Dose: Not Given Documented by: Insulin Aspart (Novolog) 0 unit SUBCUT TIDWM DEBBIE; Protocol Last Admin: 05/07/20 09:14 Dose: 4 unit Documented by: Isosorbide Mononitrate (Imdur) 60 mg PO QAM [facility] Last Admin: 05/07/20 05:36 Dose: 60 mg Documented by: Lidocaine HCl (Lidocaine 2% Jelly) 1 applic TOPICAL DAILY PRN PRN Reason: ITCHING Last Admin: 05/04/20 21:28 Dose: 1 applic Documented by: Lorazepam (Ativan) 0.5 mg IVP Q4H PRN PRN Reason: ANXIETY Last Admin: 05/07/20 08:37 Dose: 0.5 mg Documented by: Metoprolol Tartrate (Lopressor) 25 mg PO BID [facility] Last Admin: 05/07/20 09:11 Dose: 25 mg Documented by: Metoprolol Tartrate (Metoprolol Tartrate) 5 mg IV Q4H PRN PRN Reason: HR greater than 110 Last Admin: 05/06/20 13:46 Dose: 5 mg Documented by: Multi-Ingredient Ointment (Eucerin) 1 applic TOPICAL BID [facility] Last Admin: 05/07/20 09:13 Dose: Not Given Documented by: Naloxone HCl (Narcan) 0.1 mg IVP Q2M PRN PRN Reason: OPIATERV Ondansetron HCl (Zofran) 4 mg IVP Q8H PRN PRN Reason: vomiting, or N/V if npo Pantoprazole Sodium (Protonix) 40 mg IVP Q12H [facility] Last Admin: 05/07/20 09:13 Dose: 40 mg Documented by: Potassium Chloride (Potassium Chloride Oral Liquid) 10 meq PO DAILY [facility] Last Admin: 05/07/20 09:12 Dose: 10 meq Documented by: Trazodone HCl (Desyrel) 50 mg PO BEDTIME [facility] Last Admin: 05/06/20 20:05 Dose: 50 mg Documented by: Vitals/I&O/Wt Last Vital Signs Temp 100.0 F H 05/07/20 08:00 Pulse 81 05/07/20 08:00 Resp 21 H 05/07/20 08:00 BP 127/66 05/07/20 08:00 Pulse Ox 92 05/07/20 07:49 05/06/20 05/07/20 05/07/20 22:59 06:59 14:59 Intake Total 240 / 240 Balance 240 / 240 Weight last 48 hrs Weight 169 lb 6.4 oz Weight 168 lb Physical Exam Narrative: EXAM NARRATIVE: GENERAL: Averagely built and averagely nourished in no acute distress HEENT: Pupils equal round reactive to light. No pallor or icterus. NECK: central trachea, No JVD. CARDIOVASCULAR SYSTEM: S1-S2 irregular, tachycardia present RESPIRATORY SYSTEM: Chest clear to auscultation. No wheezes rhonchi or rubs heard. No use of accessory muscles. ABDOMEN: Soft, nontender and nondistended. Normal bowel sounds present. 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 SKIN: Normal turgor and temperature. No breakdown, rash noted. Urinary Catheter Management^: Whitley: Cath Placed During This Visit: yes Reason for Continuing Indwelling Catheter: Accurate Measurement of Urinary Output in Critically Ill Patients Urinary Catheter Date of Insertion: 04/22/20 Urinary Catheter Time of Insertion: 18:43 Data : 05/07/20 04:27 05/07/20 04:27 A&P Assessment and plan (1) Congestive heart failure: Urine chronic congestive heart failure with midrange ejection fraction. LV EF 45 to 50% by last echocardiogram. Fluid management through dialysis. -Continue Lasix 40 mg daily. Urine output ~600 mL today. Status: Acute Qualifiers: Heart failure chronicity: acute on chronic Heart failure type: diastolic Qualified Code(s): I50.33 - Acute on chronic diastolic (congestive) heart failure (2) Atrial fibrillation: Paroxysmal atrial fibrillation with RVR -Switch to amiodarone 200 mg daily and start on metoprolol tartrate 25 mg twice a day -Continue to use metoprolol IV as needed Status: Acute Qualifiers: Atrial fibrillation type: paroxysmal Qualified Code(s): I48.0 - Paroxysmal atrial fibrillation (3) Acute renal failure: JED super imposed on chronic kidney disease -Creatinine has been improving -Dialysis as per nephrology. Status: Acute Qualifiers: Acute renal failure type: unspecified Qualified Code(s): N17.9 - Acute kidney failure, unspecified (4) Diabetes mellitus: Status: Chronic Qualifiers: Diabetes mellitus type: type 2 Diabetes mellitus long term acute care registered nurse insulin use: without long term acute care registered nurse use Diabetes mellitus complication status: with hyperglycemia Qualified Code(s): E11.65 - Type 2 diabetes mellitus with hyperglycemia (5) Anemia: Status: Acute Qualifiers: Anemia type: iron deficiency Iron deficiency anemia type: chronic blood loss Qualified Code(s): D50.0 - Iron deficiency anemia secondary to blood loss (chronic) Additional A&P Information Confusion Hypokalemia Thank you for allowing me to participate in patient's care. Please feel free to call with questions or concerns. I will sign off. Attestations Medical Necessity Statement*: As per primary team. 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
[2020-05-07] MEDS: piperacillin-tazobactam 3.375 GM in sodium chloride 0.9% (plus) 50 ML IV (12:36)
--- NOTE | 2020-05-07 13:37 | PM.PN ---
Subjective Subjective: Interval history: Please see transfer summary from 07/06. Transfer was delayed as he got somewhat restless yesterday in ICU and low rate Precedex had to be restarted. He has since been transferred to [facility], weaned off Precedex, and today is doing much better. It seems transferring out of ICU has done him good. During evaluation he is calm, conversant, interactive. Provides history about his dementia, states that he has Parkinson's symptoms. He is no longer restlessly fidgeting in bed and repeating himself. Itching is somewhat better as well he reports. He still has episodes with his hands wandering around, and so his dialysis catheter had to be protected with a large dressing. He tells me he has had no appetite. He does tell me that he has tried Ensure before at home but did not like it very much. He says that he tried chocolate version. Says that he could try strawberry. Vitals/I&O/Wt Last Vital Signs Temp 100.0 F H 05/07/20 08:00 Pulse 79 05/07/20 12:13 Resp 18 05/07/20 12:08 BP 127/66 05/07/20 08:00 Pulse Ox 94 05/07/20 12:08 05/06/20 05/07/20 05/07/20 22:59 06:59 14:59 Intake Total 240 / 240 Balance 240 / 240 Weight last 48 hrs Weight 76.839 kg Weight 76.204 kg Physical Exam Const: COMMON NORMALS: no acute distress ORIENTATION/CONSCIOUSNESS: Yes confused OTHER: Today he is much more lucid, insightful, able to provide parts of his medical history. Calm. Not restless. Occasionally noted still picking up some things, but very easily redirectable and cooperative. HENMT: COMMON NORMALS: oropharynx normal NOSE: Other nasal findings present (Wound on bridge of the nose covered by dressing. ) Neck/C-Spine: COMMON NORMALS: no JVD Chest: OTHER: Tunneled HD catheter R chest/neck Resp: COMMON NORMALS: normal respiratory effort and clear to auscultation bilaterally AUSCULTATION: clear to auscultation bilaterally Cardio: COMMON NORMALS: no JVD, S1 normal heart sound present, S2 normal heart sound present and No murmurs present (Cardio) RATE: tachycardic HEART SOUNDS: S1 normal heart sound present and S2 normal heart sound present GI: COMMON NORMALS: Normal to inspection, nondistended, normoactive bowel sounds present, Soft to palpation and non-tender PALPATION: Yes Soft to palpation Extremity: COMMON NORMALS: no joint enlargement and no pedal edema Neuro: COMMON NORMALS: moves all extremities Skin: COMMON NORMALS: no rashes or lesions noted GENERAL SKIN EXAM: no rashes or lesions noted OTHER: No urticaria or other rash noted. Continued chronic pressure ulcer both sides of sacrum. Small raw area in the center. Urinary Catheter Management^: Jaquez: Cath Placed During This Visit: yes Reason for Continuing Indwelling Catheter: Accurate Measurement of Urinary Output in Critically Ill Patients Urinary Catheter Date of Insertion: 04/22/20 Urinary Catheter Time of Insertion: 18:43 Data : 05/07/20 04:27 05/07/20 04:27 A&P Assessment and plan (1) Acute on chronic diastolic (congestive) heart failure: Slowly weaning off oxygen. Weight is decreasing. Gradually improving. Yesterday had an episode of aspiration. This morning low-grade temperature 100 Fahrenheit. Restarted Zosyn. Continue dysphagia diet, speech therapy reassessments. Continue HD. Has tunneled catheter. CXR 05/01 with improved pulmonary consolidation and effusion (small). Improving heart failure. Improving encephalopathy. Acute diastolic CHF with significant improvement. Has lost a good amount of weight. Edema resolved. Blood pressures have been good. Respiratory failure after admission with him for intubation. Extubated on 04/25/20 Cardiology consult appreciated Appreciate nephrology and surgical consultation. Continue PT and OT. Status: Acute (2) Acute encephalopathy: Today he is doing significantly better. Off Precedex. Pruritus is better. Continue hydroxyzine as needed at night. Gabapentin. Additional adjustments with hemodialysis. Continue hemodialysis. Also possible delirium superimposed on chronic dementia, possibly minimally conscious state which is improving. He is usually more responsive from what I am told, able to answer questions follow commands. Dyspnea multifactorial secondary to underlying infection with pneumonia UA is not impressive for UTI, but does have some microscopic hematuria. Back in July CT scan with findings that could have suggested pyelonephritis. CT of the head with noted increasing fluid in multiple left mastoid air cells consistent with left-sided otomastoiditis. Otherwise mild generalized cerebral atrophy, mild senescent white matter disease. Continue speech reevaluation. Status: Acute (3) Chronic kidney disease: Chronic kidney disease increasing BUN and creatinine Appreciate nephrology consultation Dialysis catheter placed on 04/27/2020, Tolerating HD so far. BP is better. Status: Chronic (4) Lesion of cecum: Incidentally noted on CT. Discussed with his son. Concern is for malignancy. Would benefit from additional evaluation by colonoscopy, but not sure how aggressive patient and family would want to be. He states that his father had previously told him that he thought something has been wrong with him for some time, and it appears that he potentially may not have wanted to seek additional aggressive treatments for an illness like this. He notes that his father previously agreed to hemodialysis, but he is not sure about condition like potential malignancy. He will discuss further with his brother, as well as if his father's mental status continues to improve, would like to try to discuss further with him as well before proceeding with any aggressive diagnostic or interventional procedures. Today reports poor appetite. Add strawberry Ensure. Encourage oral intake as tolerating. Status: Acute (5) Otitis media: Otomastoiditis noted on CT temporal bone. He has no local inflammation, there is no tenderness, erythema, warmth or other changes over the mastoid on either side. This is noted on the left side on CT. Ear examination without noted purulence or drainage. ENT currently not available until Friday, however, suspect that this is a more chronic process. There is no invasion noted locally and no osteomyelitis. Continue Ciprodex. Completed course of Zosyn. Follow-up with ENT. Status: Acute (6) Chronic anemia: Newly found cecal lesion, concerning for possible malignancy. Acute on chronic anemia also with iron deficiency Fecal occult blood positive this admission, no evidence of any active bleeding at this time, continue on PPI twice daily Consider further outpatient work-up once cardiopulmonary status improved Status: Acute (7) Ventricular tachycardia: Prior history of ventricular tachycardia, on amiodarone 200 mg daily, metoprolol 25mg, however unable to take due to inability to swallow medications. Continue amiodarone drip. Continue IV metoprolol PRN. Status: Resolved (8) High risk medication use: Status: Acute (9) Edema, peripheral: improved Status: Acute (10) Dyslipidemia: Continue home statin Status: Acute (11) Hypertension: Status: Acute Qualifiers: Hypertension type: essential hypertension Qualified Code(s): I10 - Essential (primary) hypertension (12) Dementia: With some sundowning at night Status: Chronic Qualifiers: Dementia type: Lewy body dementia Dementia behavioral disturbance: without behavioral disturbance Qualified Code(s): G31.83 - Dementia with Lewy bodies; F02.80 - Dementia in other diseases classified elsewhere without behavioral disturbance (13) Diabetes mellitus: Lantus held Sliding scale as needed Glipizide on hold Status: Chronic Qualifiers: Diabetes mellitus type: type 2 Diabetes mellitus skilled nursing insulin use: without intermediate school teacher use Diabetes mellitus complication status: with hyperglycemia Qualified Code(s): E11.65 - Type 2 diabetes mellitus with hyperglycemia (14) Atrial fibrillation: Improved. Paroxysmal atrial fibrillation with RVR. Continue amiodarone infusion. IV metoprolol scheduled due to inability to take p.o. Cardiology consultation appreciated Off of anticoagulation due to anemia Status: Acute Qualifiers: Atrial fibrillation type: paroxysmal Qualified Code(s): I48.0 - Paroxysmal atrial fibrillation (15) Pneumonia: Low-grade fever today 100 Fahrenheit after an episode of aspiration yesterday. Zosyn restarted. Continue aspiration precautions, dysphagia diet, speech therapy while acute encephalopathy continues to resolve. No complaints about his breathing. Prior sputum culture showing mixed ray of the upper respiratory tract. Vancomycin was stopped. Status: Acute (16) Pruritus: Pruritus is much better today. Benadryl, cetirizine with little effect. Attempting to restart his gabapentin. Discussed with nephrology, uremic pruritus should be improving with dialysis. Sounds like in some cases dialysis itself may also contribute, and adjustment to usual therapy will be attempted next session. There is no leukocytosis or eosinophilia. Has cecum lesion, possibly tomorrow, but would expect neuroendocrine tumors in the colon are not common. Discussed with his son, discussed also difficult to say if in fact pruritus is present. There is no rash, or other lesions. Skin has been moisturized. Consideration may also be given to psychosomatic causes with his underlying dementia, delirium as he appears to perseverate and repeat the same thing with regards to pruritus. Discussed if you are not seeing improvement and no other objective signs, son is in agreement with perhaps cautiously trying antipsychotic medication for his encephalopathy at low-dose. Status: Acute Additional A&P Information Chronic sacral pressure ulcers. Reposition frequently. Keep dry. Mental status appears to be improving, perhaps may be able to resume oral nutrition soon. Difficult jaquez placement: Jaquez placed by Dr. Del Real, appreciate consultation. Follow in office. Positive blood culture: Showing coag negative staph, likely contaminant as only in 1 bottle, repeat blood cultures show no growth to date. Lewy body dementia DVT prophylaxis: SCDs, no pharmacologic prophylaxis due to anemia Diet: NPO, ST eval GI ppx: PPI CODE STATUS: Full code Dispo: trasition to LTAC Attestations Medical Necessity Statement*: Continue care additionally at the long-term acute care facility. Coding Level of Care Code Acute Thermoplastic Technician for Chg Fwd Diagnoses Acute on chronic diastolic (congestive) heart failure I50.33 Acute encephalopathy G93.40 Chronic kidney disease N18.9 Lesion of cecum K63.9 Otitis media H66.90 Chronic anemia D64.9 Ventricular tachycardia I47.2 High risk medication use Z79.899 Edema, peripheral R60.9 Dyslipidemia E78.5 Hypertension I10 Hypertension type: essential hypertension Dementia G31.83; F02.80 Dementia type: Lewy body dementia Dementia behavioral disturbance: without behavioral disturbance Diabetes mellitus E11.65 Diabetes mellitus type: type 2 Diabetes mellitus skilled nursing insulin use: without skilled nursing use Diabetes mellitus complication status: with hyperglycemia Atrial fibrillation I48.0 Atrial fibrillation type: paroxysmal Pneumonia J18.9 Pruritus L29.9
[2020-05-07] MEDS: potassium chloride oral liq 20 mEq/15 mL UDC PO (14:26)
[2020-05-07 14:49] LABS: Bilirubin Urine 1+ (Negative); Blood Urine 3+ (Negative); Glucose Urine UA 1+ (Normal); Ketones Urine 1+ (Negative); Nitrate Urine Negative (Negative); Protein Urine 1+ (Negative); Urine Appearance Hazy (CLEAR); Urine Color Yellow (Yellow); pH Urine 5 (5-7)
[2020-05-07 14:50] LABS: Leukocyte Esterase Urine Negative (Negative); Urobilinogen Urine Norm (Negative)
[2020-05-07 14:51] LABS: Bacteria Urine 2+ /hpf; Mucus Urine 1+ /hpf; RBC Urine 80-100 /hpf (0-2); Squamous Epithelial Cell Urine RARE /hpf (0-5); WBC Urine 0-4 /hpf (0-5)
[2020-05-07 14:52] LABS: Amorphous Sediment Urine 2+ /hpf
== END 2020-05-07 17:00 | disposition intermediate care facility (04) | DRG 291 ==
LOC: ER 09:44 → MEDSURG 15:07 → CSU 04-22 11:39 → ICU 04-23 00:22 → CSU 05-06 17:41
PROVIDERS: Family Medicine; Internal Medicine; Internal Medicine Nephrology; Student in an Organized Health Care Education/Training Program; Surgery; Admitting Provider Family Medicine; PCP Family Medicine; Visit Provider Internal Medicine
PROC: 05HM33Z Insertion of Infusion Device into Right Internal Jugular Vein, Percutaneous Approach (ICD-10-PCS; principal; 2020-04-27 11:10)
DX: I13.0 Hypertensive heart and chronic kidney disease with heart failure and stage 1 through stage 4 chronic kidney disease, or unspecified chronic kidney disease (principal); I50.33 Acute on chronic diastolic (congestive) heart failure; J96.02 Acute respiratory failure with hypercapnia; J18.9 Pneumonia, unspecified organism; G93.41 Metabolic encephalopathy; I47.2 Ventricular tachycardia; N17.9 Acute kidney failure, unspecified; G31.83 Neurocognitive disorder with Lewy bodies; E11.65 Type 2 diabetes mellitus with hyperglycemia; E11.22 Type 2 diabetes mellitus with diabetic chronic kidney disease; R33.8 Other retention of urine; Z79.899 Other long term (current) drug therapy; F02.80 Dementia in other diseases classified elsewhere, unspecified severity, without behavioral disturbance, psychotic disturbance, mood disturbance, and anxiety; I48.0 Paroxysmal atrial fibrillation; N47.1 Phimosis; H66.90 Otitis media, unspecified, unspecified ear; L29.8 Other pruritus; K63.9 Disease of intestine, unspecified; G31.9 Degenerative disease of nervous system, unspecified; E78.2 Mixed hyperlipidemia; Z87.891 Personal history of nicotine dependence; D63.1 Anemia in chronic kidney disease; E11.40 Type 2 diabetes mellitus with diabetic neuropathy, unspecified; N18.30 Chronic kidney disease, stage 3 unspecified
CPT/HCPCS: 12345; 31500; 36415; 36416; 36430; 36600; 51702; 70450; 70480; 71045; 74176; 76000; 76770; 77001; 80048; 80051; 80053; 80202; 81001; 82550; 82570; 82803; 82810; 82962; 83036; 83540; 83550; 83605; 83690; 83735; 83880; 83986; 84100; 84145; 84156; 84439; 84443; 84481; 84484; 85014; 85018; 85025; 85610; 86140; 86403; 86850; 86900; 86920; 87040; 87070; 87086; 87205; 87340; 90935; 92526; 92610; 93005; 93306; 94002; 94003; 94640; 94660; 94664; 94799; 96372; 96375; 97110; 97161; 97167; 97530; 97535; 99282; A4570; C1750; C8924; C9113; J0282; J0330; J0690; J1170; J1200; J1644; J1756; J1815 ×2; J1940; J2060; J2270; J2543; J2704; J3010; J3370; J3480; J3486; J3490; J7050; J7060; P9016; P9040; Q3014; Q9956